=== PATIENT | male | born 1980 | race Two or more races ===

== ENCOUNTER → 2016-07-21 | Outpatient (CLI) | payer OTHER ==
[2016-07-21 13:41] LABS: BASO # 0.1 K/mm3 (0.0-0.2); EOS # 0.2 K/mm3 (0.0-0.50); EOS % 2.3 % (0.0-3.0); LYMPH # 2.4 K/mm3 (1.5-4.5); MEAN CORPUSCULAR HEMOGLOBIN 25.2 pg (27.0-33.0); MEAN CORPUSCULAR HGB CONC 33.1 g/dl (32.0-36.5); MEAN CORPUSCULAR VOLUME 76.3 fl (80.0-96.0); MONO # 0.3 K/mm3 (0.0-0.8); MONO % 4.2 % (0.0-5.0); NEUTROPHILS # 4.6 K/mm3 (1.8-7.7); NEUTROPHILS % 60.8 % (36.0-66.0); RED CELL DISTRIBUTION WIDTH 15.9 % (11.5-14.5); WHITE BLOOD COUNT 7.5 K/mm3 (4.0-10.0)
[2016-07-21 14:18] LABS: ALBUMIN 3.6 GM/DL (3.2-5.2); ALBUMIN/GLOBULIN RATIO 0.86 (1.00-1.93); ALKALINE PHOSPHATASE 109 U/L (45-117); ALT/SGPT 24 U/L (12-78); ANION GAP 10 MEQ/L (8-16); AST/SGOT 17 U/L (15-37); BILIRUBIN,TOTAL 0.4 MG/DL (0.2-1.0); BLOOD UREA NITROGEN 9 MG/DL (7-18); CALCIUM LEVEL 8.6 MG/DL (8.5-10.1); CARBON DIOXIDE LEVEL 29 MEQ/L (21-32); CHLORIDE LEVEL 103 MEQ/L (98-107); CHOLESTEROL LEVEL 188 MG/DL (<200); CREATININE FOR GFR 0.89 MG/DL (0.70-1.30); GLOMERULAR FILTRATION RATE > 60.0 (>60); GLUCOSE, FASTING 88 MG/DL (70-105); POTASSIUM SERUM 4.2 MEQ/L (3.5-5.1); SODIUM LEVEL 142 MEQ/L (136-145); TOTAL PROTEIN 7.8 GM/DL (6.4-8.2); TRIGLYCERIDES LEVEL 298 MG/DL (<150)
[2016-07-21 16:37] LABS: FERRITIN 73 NG/ML (26-388)
== END ==
LOC: M LAB 12:46
PROVIDERS: ATTEND Physician Assistant Medical
DX: I25.89 Other forms of chronic ischemic heart disease (principal); D64.9 Anemia, unspecified

== ENCOUNTER → 2016-08-14 | Outpatient (CLI) | payer OTHER ==
--- NOTE | 2016-08-17 11:13 | SLEEPHOME ---
DATE OF PROCEDURE: 08/13/2016 ORDERED BY: Katie Ngo NP Diagnostic home sleep testing was performed due to concern for the obstructive sleep apnea syndrome in this patient with a history of excessive somnolence and nonrestorative sleep. For testing, a NOX-T3 respiratory monitoring device was used. Continuous record was made of pulse, oxygen saturation, airflow, chest and abdominal strain, and body position. 9 hours and 59 minutes of data were reviewed. There were 7 hours and 28 minutes marked as time in bed. During the interval marked time in bed, there were 58 respiratory events identified of 10 seconds in duration or greater for a respiratory event index of 7.8. The events were primarily obstructive. 8 central apneas were seen. The patient's baseline pulse rate was 58 beats per minute. Pulse rate ranged 37-97 beats per minute. Oxygen saturation at baseline was 93%. Significant oxygen desaturations were seen surrounding respiratory events. The lowest oxygen saturation recorded was 67%. Testing was performed in the supine position. IMPRESSION: Abnormal home sleep testing with repetitive respiratory events and oxygen desaturations to 67% with a respiratory event index of 7.8 is consistent with the obstructive sleep apnea syndrome. RECOMMENDATION: The patient should be encouraged to return to the sleep disorder center for pressure therapy. In the interim, alcohol and sedative avoidance should be practiced and caution exercised during the operation of motor vehicles.
== END ==
LOC: M SLEEP 08-13 11:50 → M SLEEP HO 07:52
PROVIDERS: ATTEND Nurse Practitioner Adult Health
DX: G47.30 Sleep apnea, unspecified (principal)

== ENCOUNTER 2016-08-22 06:22 | Emergency (ER) | payer OTHER ==
[2016-08-22] MEDS ORDERED: ONDANSETRON 4 MG ORAL DISINTEGRATING TAB (S0181) As Ordered ONE (07:16)
--- NOTE | 2016-08-22 07:28 | EDDOCDS ---
Nurse's Notes [facility] Name: Bud Mcneal Age: 36 yrs Sex: Male : 1980 Arrival Date: 08/22/2016 Time: 06:22 Bed I5 / M5 Private MD: Diagnosis: Nausea and vomiting;Diarrhea, unspecified Presentation: 08/22 06:43 Presenting complaint: Patient states: started with vomiting and diarrhea this morning cz around 0100 last episode of vomiting and diarrhea around 0600. Adult Sepsis Screening: The patient does not have new or worsening altered mentation. Patient's respiratory rate is less than 22. Systolic blood pressure is greater than 100. Patient has a qSOFA score of 0- Negative Sepsis Screen. Suicide/Homicide risk assessment- the patient denies having any suicidal and/or homicidal ideations and does not present with any other emotional, behavioral or mental health complaints. 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 Transition of care: patient was not received from another setting of care. 06:43 Acuity: CHARO Level 3 cz 06:43 Method Of Arrival: Walkin/Carried/Asstd cz Triage Assessment: 06:49 General: Appears uncomfortable. Pain: Location: abdomen Pain currently is 10 out of 10 cz on a pain scale. HIV screening NA for this visit Offered previously. Historical: - Allergies: No known drug Allergies; - Home Meds: 1. ibuprofen 800 mg Oral tab prn - PMHx: [place] x2; - PSHx: hernia repair; Appendectomy; - Social history: Smoking status: Patient states was never smoker of tobacco. No barriers to communication noted, The patient speaks fluent Nicaraguan, Speaks appropriately for age. - Family history: Not pertinent. - : The pt / caregiver states he / she is not on anticoagulants. Home medication list is obtained from the patient. - Exposure Risk Screening:: None identified. Screenin:17 Screening information is obtained from the patient. Fall risk: No risks identified. jmk Assistance ADL's: requires no assistance with activities of daily living. Abuse/DV Screen: The patient / caregiver reports he/she is: not in a situation that causes fear, pain or injury. Nutritional screening: No deficits noted. Advance Directives: Currently, there is no health care proxy. There is no active DNR order. There is no living will. There is no Power of Paster Operator. Advance directive information has not previously been placed in an [facility] medical record. home support is adequate. Assessment: 07:17 General: Appears skin warm and dry color satisfactory. Moist pink oral mucosa. tolerant jmk of physical activity. Obese abdomen that is non distended. diffusely tender with palpation.. GI: Abdomen is non- distended obese, Bowel sounds present X 4 quads. Abd is soft X 4 quads Abd is tender to palpation X 4 quads. Vital Signs: 06:49 BP 123 / 63; Pulse 87; Resp 18; Temp 98.3(T); Pulse Ox 95% on R/A; Weight 158.76 kg; cz Height 5 ft. 5 in. (165.10 cm); 06:49 Body Mass Index 58.24 (158.76 kg, 165.10 cm) Vitals: 06:49 Log In Time: August 22, 2016 at 06:22. ED Course: 06:24 Patient visited by Catracho Hair Reg. pm4 06:24 Patient moved to Waiting pm4 06:47 Triage Initiated cz 06:57 Patient moved to Pre RCE cz 07:07 Patient moved to I5 / M5 jrd 07:09 Alfa Iglesias [facility] is [facility]. btw 07:09 Babita Reyna MD is Attending Physician. btw 07:09 Patient visited by Alfa Iglesias PA. btw 07:17 The patient / caregiver is instructed regarding the plan of care and ED course. k 07:17 No IV's were initiated during this patient's visit. No procedures done that require k assistance. 07:23 [place] [place] Agreement was scanned into [employer] and attached to record. hs2 Administered Medications: 07:17 Drug: Ondansetron ODT 4 mg [ondansetron 4 mg disintegrating tablet (1 tabs)] Route: PO; jmk Order Results: There are currently no results for this order. Outcome: 07:15 Discharge ordered by Provider. btw 07:26 Discharge Assessment: Patient awake, alert and oriented x 3. No cognitive and/or jmk functional deficits noted. Patient verbalized understanding of disposition instructions. patient administered narcotics - no. The following High Risk Discharge criteria are identified: None. Discharged to home ambulatory. Condition: good. Discharge instructions given to patient, Instructed on discharge instructions, follow up and referral plans. medication usage, Demonstrated understanding of instructions, medications, Pt was receptive of discharge instructions/ teaching. Prescriptions given X 1. No special radiology studies were completed. Property removed. 07:27 Patient left the ED. jaquelin Signatures: Edwin Fajardo,RN Amos Aviles RN RN cz Wolfenden, Brandon, PA PA btw Javier Shepard, Mary Jo Schaeffer, Reg Reg hs2 Catracho Hair, Reg Reg pm4 MTDD
--- NOTE | 2016-08-22 07:29 | EDDOCDS ---
Physician Documentation [facility] Name: Bud Mcneal Age: 36 yrs Sex: Male : 1980 Arrival Date: 08/22/2016 Time: 06:22 Bed I5 / M5 Private MD: Disposition: 08/22/16 07:15 Discharged to Home/Self Care. Impression: Nausea and vomiting, Diarrhea, unspecified. - Condition is Stable. - Discharge Instructions: Viral Gastroenteritis, [id number]. - Prescriptions for ZOFRAN ODT 4 mg Oral - dissolve 1 tablet by ORAL route 4 times per day As needed do not chew, do not swallow whole; 8 tablet. - Medication Reconciliation, Local Pharmacy Hours form. - Follow up: Private Physician; When: Call to arrange an appointment; Reason: Further diagnostic work-up, Recheck today's complaints, Continuance of care. - Problem is new. - Symptoms are unchanged. Historical: - Allergies: No known drug Allergies; - Home Meds: 1. ibuprofen 800 mg Oral tab prn - PMHx: [place] x2; - PSHx: hernia repair; Appendectomy; - Social history: Smoking status: Patient states was never smoker of tobacco. No barriers to communication noted, The patient speaks fluent Slovak, Speaks appropriately for age. - Family history: Not pertinent. - : The pt / caregiver states he / she is not on anticoagulants. Home medication list is obtained from the patient. - Exposure Risk Screening:: None identified. Vital Signs: 08/22 06:49 BP 123 / 63; Pulse 87; Resp 18; Temp 98.3(T); Pulse Ox 95% on R/A; Weight 158.76 kg / cz 350.01 lbs; Height 5 ft. 5 in. (165.10 cm); 06:49 Body Mass Index 58.24 (158.76 kg, 165.10 cm) cz MDM: 07:11 Ondansetron ODT Oral Disintegrating Tablet 4 mg PO once ordered. btw 07:18 Financial registration complete. hs2 07:23 [facility] Payment Agreement was scanned into [employer] and attached to record. hs2 Administered Medications: 07:17 Drug: Ondansetron ODT 4 mg [ondansetron 4 mg disintegrating tablet (1 tabs)] Route: PO; jaquelin Signatures: Edwin Fajardo,RN RN Amos Pickard, JADA RN Alfa Ward PA PA btw Mary Jo Marks, Reg Reg hs2 The chart was reviewed and I authenticate all verbal orders and agree with the evaluation and treatment provided.Attachments: : [facility] Payment Agreement hs2 MTDD
--- NOTE | 2016-08-24 08:28 | EDDOCDS ---
Physician Documentation [facility] Name: Bud Mcneal Age: 36 yrs Sex: Male : 1980 Arrival Date: 08/22/2016 Time: 06:22 Bed I5 / M5 Private MD: Disposition: 08/22/16 07:15 Discharged to Home/Self Care. Impression: Nausea and vomiting, Diarrhea, unspecified. - Condition is Stable. - Discharge Instructions: Viral Gastroenteritis, [id number]. - Prescriptions for ZOFRAN ODT 4 mg Oral - dissolve 1 tablet by ORAL route 4 times per day As needed do not chew, do not swallow whole; 8 tablet. - Medication Reconciliation, Local Pharmacy Hours form. - Follow up: Private Physician; When: Call to arrange an appointment; Reason: Further diagnostic work-up, Recheck today's complaints, Continuance of care. - Problem is new. - Symptoms are unchanged. Historical: - Allergies: No known drug Allergies; - Home Meds: 1. ibuprofen 800 mg Oral tab prn - PMHx: [place] x2; - PSHx: hernia repair; Appendectomy; - Social history: Smoking status: Patient states was never smoker of tobacco. No barriers to communication noted, The patient speaks fluent Slovenian, Speaks appropriately for age. - Family history: Not pertinent. - : The pt / caregiver states he / she is not on anticoagulants. Home medication list is obtained from the patient. - Exposure Risk Screening:: None identified. Vital Signs: 08/22 06:49 BP 123 / 63; Pulse 87; Resp 18; Temp 98.3(T); Pulse Ox 95% on R/A; Weight 158.76 kg / cz 350.01 lbs; Height 5 ft. 5 in. (165.10 cm); 06:49 Body Mass Index 58.24 (158.76 kg, 165.10 cm) cz MDM: 07:11 Ondansetron ODT Oral Disintegrating Tablet 4 mg PO once ordered. btw 07:18 Financial registration complete. hs2 07:23 [facility] Payment Agreement was scanned into [employer] and attached to record. hs2 13:57 T-Sheet-- Draft Copy was scanned into [employer] and attached to record. gb Administered Medications: 07:17 Drug: Ondansetron ODT 4 mg [ondansetron 4 mg disintegrating tablet (1 tabs)] Route: PO; jaquelin Signatures: Edwin Fajardo RN RN jmk Zecher, Calvin, RN RN Mikala Ferrer, Reg Reg gb Alfa Iglesias PA PA btw Mary Jo Marks, Reg Reg hs2 The chart was reviewed and I authenticate all verbal orders and agree with the evaluation and treatment provided.Attachments: 07:23 [facility] [place] Agreement hs2 13:57 T-Sheet-- Draft Copy gb Chart Complete MTDD
--- NOTE | 2016-08-24 08:28 | EDDOCDS ---
Nurse's Notes [facility] Name: Bud Mcneal Age: 36 yrs Sex: Male : 1980 Arrival Date: 08/22/2016 Time: 06:22 Bed I5 / M5 Private MD: Diagnosis: Nausea and vomiting;Diarrhea, unspecified Presentation: 08/22 06:43 Presenting complaint: Patient states: started with vomiting and diarrhea this morning cz around 0100 last episode of vomiting and diarrhea around 0600. Adult Sepsis Screening: The patient does not have new or worsening altered mentation. Patient's respiratory rate is less than 22. Systolic blood pressure is greater than 100. Patient has a qSOFA score of 0- Negative Sepsis Screen. Suicide/Homicide risk assessment- the patient denies having any suicidal and/or homicidal ideations and does not present with any other emotional, behavioral or mental health complaints. Status: Patient is not a room service associate or dependent. Transition of care: patient was not received from another setting of care. 06:43 Acuity: CHARO Level 3 cz 06:43 Method Of Arrival: Walkin/Carried/Asstd cz Triage Assessment: 06:49 General: Appears uncomfortable. Pain: Location: abdomen Pain currently is 10 out of 10 cz on a pain scale. HIV screening NA for this visit Offered previously. Historical: - Allergies: No known drug Allergies; - Home Meds: 1. ibuprofen 800 mg Oral tab prn - PMHx: [place] x2; - PSHx: hernia repair; Appendectomy; - Social history: Smoking status: Patient states was never smoker of tobacco. No barriers to communication noted, The patient speaks fluent Malian, Speaks appropriately for age. - Family history: Not pertinent. - : The pt / caregiver states he / she is not on anticoagulants. Home medication list is obtained from the patient. - Exposure Risk Screening:: None identified. Screenin:17 Screening information is obtained from the patient. Fall risk: No risks identified. jmk Assistance ADL's: requires no assistance with activities of daily living. Abuse/DV Screen: The patient / caregiver reports he/she is: not in a situation that causes fear, pain or injury. Nutritional screening: No deficits noted. Advance Directives: Currently, there is no health care proxy. There is no active DNR order. There is no living will. There is no Power of Assistant Research Scientist. Advance directive information has not previously been placed in an [facility] medical record. home support is adequate. Assessment: 07:17 General: Appears skin warm and dry color satisfactory. Moist pink oral mucosa. tolerant jmk of physical activity. Obese abdomen that is non distended. diffusely tender with palpation.. GI: Abdomen is non- distended obese, Bowel sounds present X 4 quads. Abd is soft X 4 quads Abd is tender to palpation X 4 quads. Vital Signs: 06:49 BP 123 / 63; Pulse 87; Resp 18; Temp 98.3(T); Pulse Ox 95% on R/A; Weight 158.76 kg; cz Height 5 ft. 5 in. (165.10 cm); 06:49 Body Mass Index 58.24 (158.76 kg, 165.10 cm) Vitals: 06:49 Log In Time: August 22, 2016 at 06:22. ED Course: 06:24 Patient visited by Catracho Hair Reg. pm4 06:24 Patient moved to Waiting pm4 06:47 Triage Initiated cz 06:57 Patient moved to Pre RCE cz 07:07 Patient moved to I5 / M5 jrd 07:09 [facility]. btw 07:09 Babita Reyna MD is Attending Physician. btw 07:09 Patient visited by Alfa Iglesias PA. btw 07:17 The patient / caregiver is instructed regarding the plan of care and ED course. jmk 07:17 No IV's were initiated during this patient's visit. No procedures done that require k assistance. 07:23 [place] [place] Payment Agreement was scanned into [employer] and attached to record. hs2 13:57 T-Sheet-- Draft Copy was scanned into [employer] and attached to record. gb Administered Medications: 07:17 Drug: Ondansetron ODT 4 mg [ondansetron 4 mg disintegrating tablet (1 tabs)] Route: PO; jmk Order Results: There are currently no results for this order. Outcome: 07:15 Discharge ordered by Provider. btw 07:26 Discharge Assessment: Patient awake, alert and oriented x 3. No cognitive and/or jmk functional deficits noted. Patient verbalized understanding of disposition instructions. patient administered narcotics - no. The following High Risk Discharge criteria are identified: None. Discharged to home ambulatory. Condition: good. Discharge instructions given to patient, Instructed on discharge instructions, follow up and referral plans. medication usage, Demonstrated understanding of instructions, medications, Pt was receptive of discharge instructions/ teaching. Prescriptions given X 1. No special radiology studies were completed. Property removed. 07:27 Patient left the ED. jaquelin Signatures: Edwin Fajardo RN RN jmk Zecher, Calvin, RN RN cz Barnhardt, Gloria, Reg Reg gb Alfa Iglesias PA PA btw Javier Shepard, CARLITO CUSTOMER SUCCESS INTERN jrd Mary Jo Marks, Reg Reg hs2 Catracho Hair, Reg Reg pm4 Chart Complete MTDD
--- NOTE | 2016-08-24 08:28 | EDDOCDS ---
Physician Documentation [facility] Name: Bud Mcneal Age: 36 yrs Sex: Male : 1980 Arrival Date: 08/22/2016 Time: 06:22 Bed I5 / M5 Private MD: Disposition: 08/22/16 07:15 Discharged to Home/Self Care. Impression: Nausea and vomiting, Diarrhea, unspecified. - Condition is Stable. - Discharge Instructions: Viral Gastroenteritis, [id number]. - Prescriptions for ZOFRAN ODT 4 mg Oral - dissolve 1 tablet by ORAL route 4 times per day As needed do not chew, do not swallow whole; 8 tablet. - Medication Reconciliation, Local Pharmacy Hours form. - Follow up: Private Physician; When: Call to arrange an appointment; Reason: Further diagnostic work-up, Recheck today's complaints, Continuance of care. - Problem is new. - Symptoms are unchanged. Historical: - Allergies: No known drug Allergies; - Home Meds: 1. ibuprofen 800 mg Oral tab prn - PMHx: [place] x2; - PSHx: hernia repair; Appendectomy; - Social history: Smoking status: Patient states was never smoker of tobacco. No barriers to communication noted, The patient speaks fluent Malay, Speaks appropriately for age. - Family history: Not pertinent. - : The pt / caregiver states he / she is not on anticoagulants. Home medication list is obtained from the patient. - Exposure Risk Screening:: None identified. Vital Signs: 08/22 06:49 BP 123 / 63; Pulse 87; Resp 18; Temp 98.3(T); Pulse Ox 95% on R/A; Weight 158.76 kg / cz 350.01 lbs; Height 5 ft. 5 in. (165.10 cm); 06:49 Body Mass Index 58.24 (158.76 kg, 165.10 cm) cz MDM: 07:11 Ondansetron ODT Oral Disintegrating Tablet 4 mg PO once ordered. btw 07:18 Financial registration complete. hs2 07:23 [facility] Payment Agreement was scanned into [employer] and attached to record. hs2 13:57 T-Sheet-- Draft Copy was scanned into [employer] and attached to record. gb Administered Medications: 07:17 Drug: Ondansetron ODT 4 mg [ondansetron 4 mg disintegrating tablet (1 tabs)] Route: PO; jaquelin Signatures: Edwin Fajardo RN RN jmk Zecher, Calvin, RN RN Mikala Ferrer, Reg Reg gb Alfa Iglesias PA PA btw Mary Jo Marks, Reg Reg hs2 The chart was reviewed and I authenticate all verbal orders and agree with the evaluation and treatment provided.Attachments: 07:23 [place] [place] Payment Agreement hs2 13:57 T-Sheet-- Draft Copy gb Chart Complete MTDD
== END 2016-08-22 07:27 | disposition home or self-care (01) ==
LOC: M ED 06:22
DX: R11.2 Nausea with vomiting, unspecified (principal); R19.7 Diarrhea, unspecified; I25.2 Old myocardial infarction

== ENCOUNTER 2016-09-04 09:41 | Emergency (ER) | payer OTHER ==
--- NOTE | 2016-09-04 10:46 | REP ---
Clinical: Left-sided pain . Technique: Frontal view of the chest with multiple views of the left hemithorax. Findings: Frontal view of the chest demonstrates no acute cardiopulmonary process. Multiple views of the left hemithorax demonstrates no obvious acute rib fracture or pathology. Impression: Normal left rib series Signed by Valdemar Landry MD 09/04/2016 10:38 A
--- NOTE | 2016-09-04 11:24 | EDDOCDS ---
Nurse's Notes [facility] Name: Bud Mcneal Age: 36 yrs Sex: Male : 1980 Arrival Date: 09/04/2016 Time: 09:41 Bed TR7 Private MD: NO PRIMARY PHYSICIAN, . Diagnosis: Strain of muscle and tendon of back wall of thorax-OCER LEFT FLANK Presentation: 09/04 09:49 Presenting complaint: Patient states: this morning bent over to cough felt sharp pain [facility] left lower back dropped him to his knees. Acute neurological deficits are not present. Mechanism of Injury: Bending. Adult Sepsis Screening: The patient does not have new or worsening altered mentation. Patient's respiratory rate is less than 22. Systolic blood pressure is greater than 100. Patient has a qSOFA score of 0- Negative Sepsis Screen. Suicide/Homicide risk assessment- the patient denies having any suicidal and/or homicidal ideations and does not present with any other emotional, behavioral or mental health complaints. Status: Patient is not a community service worker or dependent. Transition of care: patient was not received from another setting of care. 09:49 Acuity: CHARO Level 4 [facility] 09:49 Method Of Arrival: Walkin/Carried/Asstd [facility] Triage Assessment: 09:52 General: Appears uncomfortable, Behavior is appropriate for age. Pain: Location: left j low back Pain currently is 10 out of 10 on a pain scale. Pain radiates to left leg. Pt Declines HIV testing. Neurological: Level of Consciousness is awake, alert, Oriented to person, place, time. Respiratory: Airway is patent Respiratory effort is even, unlabored. Derm: Skin is pink, warm & dry. Musculoskeletal: Reports pain in left low back radiation to left leg Pain is 10 out of 10 on a pain scale. Denies weakness, numbness. Historical: - Allergies: No known drug Allergies; - Home Meds: 1. omeprazole 20 mg Oral cpDR 1 cap once daily (Last dose: 09/03/2016) 2. aspirin 81 mg Oral tab 1 tab once daily (Last dose: 09/03/2016) 3. ibuprofen 800 mg Oral tab prn (Last dose: 09/03/2016) - PMHx: [place] x2; GERD; - PSHx: hernia repair; Appendectomy; Cholecystectomy; - Social history: Smoking status: Patient states was never smoker of tobacco. No barriers to communication noted, The patient speaks fluent Dutch. - Family history: Not pertinent. - : The pt / caregiver states he / she is not on anticoagulants. Home medication list is obtained from the patient. - Exposure Risk Screening:: None identified. Screenin:00 Screening information is obtained from the patient. Fall risk: No risks identified. [facility] Assistance ADL's: requires no assistance with activities of daily living. Abuse/DV Screen: The patient / caregiver reports he/she is: not in a situation that causes fear, pain or injury. Nutritional screening: No deficits noted. Advance Directives: Currently, there is no health care proxy. There is no active DNR order. There is no living will. There is no Power of Can Closing Machine Tender. Advance directive information has not previously been placed in an [facility] medical record. Further advance directive information is declined. home support is adequate. Assessment: 11:00 General: Appears in no apparent distress, Behavior is appropriate for age, pleasant. [facility] Pain: Location: left low back Pain currently is 6 out of 10 on a pain scale. Neurological: Level of Consciousness is awake, alert, Oriented to person, place, time. Respiratory: Airway is patent Respiratory effort is even, unlabored. Derm: Skin is pink, warm & dry. Musculoskeletal: Reports pain in left low back radiation to left leg Pain is 6 out of 10 on a pain scale. Vital Signs: 09:44 BP 146 / 74; Pulse 67; Resp 18; Temp 97.3(O); Pulse Ox 95% on R/A; Weight 158.76 kg [facility] (R); Height 5 ft. 6 in. (167.64 cm) (R); Pain 10/10; 10:58 BP 138 / 83 RA Sitting (auto/lg); Pulse 65; Resp 18; Temp 97.7(O); Pulse Ox 94% ; Pain rs6 10/10; 09:44 Body Mass Index 56.49 (158.76 kg, 167.64 cm) [facility] Vitals: 09:44 Log In Time: September 04, 2016 at 09:40. [facility] ED Course: 09:43 Patient visited by Kadi Graves. [facility] 09:43 NO PRIMARY PHYSICIAN, . is Private Physician. [facility] 09:43 Patient moved to Waiting [facility] 09:44 Patient visited by Kadi Graves. dem1 09:51 Triage Initiated kpj 09:54 Patient moved to Triage 2 kpj 09:55 [facility] dt4 09:55 Douglas Krishnamurthy MD is Attending Physician. dt4 09:56 Patient visited by Mariely Tom PA-C. dt4 10:07 Patient moved to TR1 srm 10:46 [facility] is Referral Physician. dt4 10:50 Rib Unilat W/PA Chest Only Returned. EDMS 10:53 Patient moved to PR1 / 25 rs6 10:53 [facility] Payment Agreement was scanned into [employer] and attached to record. lg 10:58 Patient visited by Leah Lay PCA. rs6 11:00 No apparent distress. kpj 11:00 The patient / caregiver is instructed regarding the plan of care and ED course. Patient [facility] has correct armband on for positive identification. 11:00 No IV's were initiated during this patient's visit. No procedures done that require kpj assistance. 11:05 Patient moved to TR1 rs6 11:06 Patient moved to TR7 rs6 Order Results: Radiology Order: Rib Unilat W/PA Chest Only Test: Rib Unilat W/PA Chest Only REASON FOR EXAMINATION: LEFT POST RIB PAIN AFTER COUGHING; Clinical: Left-sided pain .; ; Technique: Frontal view of the chest with multiple views of the left; hemithorax.; ; Findings:; Frontal view of the chest demonstrates no acute cardiopulmonary process.; Multiple views of the left hemithorax demonstrates no obvious acute rib fracture; or pathology.; ; Impression:; Normal left rib series; ; ; Signed by; Valdemar Landry MD 09/04/2016 10:38 A; Outcome: 10:46 Discharge ordered by Provider. dt4 11:00 Discharge Assessment: Patient awake, alert and oriented x 3. No cognitive and/or kpj functional deficits noted. Patient verbalized understanding of disposition instructions. patient administered narcotics - no. The following High Risk Discharge criteria are identified: None. Discharged to home ambulatory. Condition: stable. Discharge instructions given to patient, Instructed on discharge instructions, follow up and referral plans. medication usage, no driving heavy equipment, Use of warm compresses to the affected area, no drinking with medication, Demonstrated understanding of instructions, medications, Pt was receptive of discharge instructions/ teaching. Prescriptions given X 2. No special radiology studies were completed. Property sent home with patient. 11:23 Patient left the ED. [facility] Signatures: Dispatcher [employer] EDCecilia Angulo, Leigh Raza RN, RN RN Flores Rebolledo, Reg Reg lg Star, Kadi dem1 Mariely Tom PA-C PA-C dt4 Leah Lay PCA [place] [employer] rs6 MTDD
--- NOTE | 2016-09-04 11:24 | EDDOCDS ---
Physician Documentation [facility] Name: Bud Mcneal Age: 36 yrs Sex: Male : 1980 Arrival Date: 09/04/2016 Time: 09:41 Bed TR7 Private MD: NO PRIMARY PHYSICIAN, . Disposition: 09/04/16 10:46 Discharged to Home/Self Care. Impression: Strain of muscle and tendon of back wall of thorax - OCER LEFT FLANK. - Condition is Stable. - Discharge Instructions: Muscle Strain. - Prescriptions for Naprosyn 500 mg Oral Tablet - take 1 tablet by ORAL route every 12 hours As needed take with food; 30 tablet. Cyclobenzaprine 10 mg Oral Tablet - take 1 tablet by ORAL route at bedtime As needed; 15 tablet. - Medication Reconciliation, Local Pharmacy Hours form. - Follow up: Emergency Department; When: As needed; Reason: Worsening of conditions. Follow up: [facility]; When: Call to arrange an appointment; Reason: Recheck today's complaints, Continuance of care, To establish care. - Problem is new. - Symptoms are unchanged. Historical: - Allergies: No known drug Allergies; - Home Meds: 1. omeprazole 20 mg Oral cpDR 1 cap once daily (Last dose: 09/03/2016) 2. aspirin 81 mg Oral tab 1 tab once daily (Last dose: 09/03/2016) 3. ibuprofen 800 mg Oral tab prn (Last dose: 09/03/2016) - PMHx: [place] x2; GERD; - PSHx: hernia repair; Appendectomy; Cholecystectomy; - Social history: Smoking status: Patient states was never smoker of tobacco. No barriers to communication noted, The patient speaks fluent American. - Family history: Not pertinent. - : The pt / caregiver states he / she is not on anticoagulants. Home medication list is obtained from the patient. - Exposure Risk Screening:: None identified. Vital Signs: 09/04 09:44 BP 146 / 74; Pulse 67; Resp 18; Temp 97.3(O); Pulse Ox 95% on R/A; Weight 158.76 kg / dem1 350.01 lbs (R); Height 5 ft. 6 in. (167.64 cm) (R); Pain 10/10; 10:58 BP 138 / 83 RA Sitting (auto/lg); Pulse 65; Resp 18; Temp 97.7(O); Pulse Ox 94% ; Pain rs6 04/21; 09:44 Body Mass Index 56.49 (158.76 kg, 167.64 cm) dem1 MDM: 10:01 Financial registration complete. lg 10:03 Rib Unilat W/PA Chest Only Ordered. EDMS 10:53 [facility] Payment Agreement was scanned into [employer] and attached to record. lg Signatures: Dispatcher [employer] EDSD Cecilia Jones RN RN Flores Russell, Reg Reg Mariely Tom, GONZÁLEZC PARomie dt4 The chart was reviewed and I authenticate all verbal orders and agree with the evaluation and treatment provided.Attachments: 10:53 [facility] Payment Agreement lg MTDD
--- NOTE | 2016-09-06 12:25 | EDDOCDS ---
Nurse's Notes [facility] Name: Bud Mcneal Age: 36 yrs Sex: Male : 1980 Arrival Date: 09/04/2016 Time: 09:41 Bed TR7 Private MD: NO PRIMARY PHYSICIAN, . Diagnosis: Strain of muscle and tendon of back wall of thorax-OCER LEFT FLANK Presentation: 09/04 09:49 Presenting complaint: Patient states: this morning bent over to cough felt sharp pain [facility] left lower back dropped him to his knees. Acute neurological deficits are not present. Mechanism of Injury: Bending. Adult Sepsis Screening: The patient does not have new or worsening altered mentation. Patient's respiratory rate is less than 22. Systolic blood pressure is greater than 100. Patient has a qSOFA score of 0- Negative Sepsis Screen. Suicide/Homicide risk assessment- the patient denies having any suicidal and/or homicidal ideations and does not present with any other emotional, behavioral or mental health complaints. Status: Patient is not a retail service specialist or dependent. Transition of care: patient was not received from another setting of care. 09:49 Acuity: CHARO Level 4 [facility] 09:49 Method Of Arrival: Walkin/Carried/Asstd [facility] Triage Assessment: 09:52 General: Appears uncomfortable, Behavior is appropriate for age. Pain: Location: left j low back Pain currently is 10 out of 10 on a pain scale. Pain radiates to left leg. Pt Declines HIV testing. Neurological: Level of Consciousness is awake, alert, Oriented to person, place, time. Respiratory: Airway is patent Respiratory effort is even, unlabored. Derm: Skin is pink, warm & dry. Musculoskeletal: Reports pain in left low back radiation to left leg Pain is 10 out of 10 on a pain scale. Denies weakness, numbness. Historical: - Allergies: No known drug Allergies; - Home Meds: 1. omeprazole 20 mg Oral cpDR 1 cap once daily (Last dose: 09/03/2016) 2. aspirin 81 mg Oral tab 1 tab once daily (Last dose: 09/03/2016) 3. ibuprofen 800 mg Oral tab prn (Last dose: 09/03/2016) - PMHx: [place] x2; GERD; - PSHx: hernia repair; Appendectomy; Cholecystectomy; - Social history: Smoking status: Patient states was never smoker of tobacco. No barriers to communication noted, The patient speaks fluent Yemeni. - Family history: Not pertinent. - : The pt / caregiver states he / she is not on anticoagulants. Home medication list is obtained from the patient. - Exposure Risk Screening:: None identified. Screenin:00 Screening information is obtained from the patient. Fall risk: No risks identified. [facility] Assistance ADL's: requires no assistance with activities of daily living. Abuse/DV Screen: The patient / caregiver reports he/she is: not in a situation that causes fear, pain or injury. Nutritional screening: No deficits noted. Advance Directives: Currently, there is no health care proxy. There is no active DNR order. There is no living will. There is no Power of Rail Bender. Advance directive information has not previously been placed in an [facility] medical record. Further advance directive information is declined. home support is adequate. Assessment: 11:00 General: Appears in no apparent distress, Behavior is appropriate for age, pleasant. [facility] Pain: Location: left low back Pain currently is 6 out of 10 on a pain scale. Neurological: Level of Consciousness is awake, alert, Oriented to person, place, time. Respiratory: Airway is patent Respiratory effort is even, unlabored. Derm: Skin is pink, warm & dry. Musculoskeletal: Reports pain in left low back radiation to left leg Pain is 6 out of 10 on a pain scale. Vital Signs: 09:44 BP 146 / 74; Pulse 67; Resp 18; Temp 97.3(O); Pulse Ox 95% on R/A; Weight 158.76 kg [facility] (R); Height 5 ft. 6 in. (167.64 cm) (R); Pain 10/10; 10:58 BP 138 / 83 RA Sitting (auto/lg); Pulse 65; Resp 18; Temp 97.7(O); Pulse Ox 94% ; Pain rs6 10/10; 09:44 Body Mass Index 56.49 (158.76 kg, 167.64 cm) [facility] Vitals: 09:44 Log In Time: September 04, 2016 at 09:40. [facility] ED Course: 09:43 Patient visited by Kadi Graves. [facility] 09:43 NO PRIMARY PHYSICIAN, . is Private Physician. [facility] 09:43 Patient moved to Waiting [facility] 09:44 Patient visited by Kadi Graves. dem1 09:51 Triage Initiated kpj 09:54 Patient moved to Triage 2 kpj 09:55 Mariely Tom [facility]C [facility]. dt4 09:55 Douglas Krishnamurthy MD is Attending Physician. dt4 09:56 Patient visited by Mariely Tom PA-C. dt4 10:07 Patient moved to TR1 srm 10:46 [facility] is Referral Physician. dt4 10:50 Rib Unilat W/PA Chest Only Returned. EDMS 10:53 Patient moved to PR1 / 25 rs6 10:53 [facility] Payment Agreement was scanned into [employer] and attached to record. lg 10:58 Patient visited by Leah Lay PCA. rs6 11:00 No apparent distress. kpj 11:00 The patient / caregiver is instructed regarding the plan of care and ED course. Patient [facility] has correct armband on for positive identification. 11:00 No IV's were initiated during this patient's visit. No procedures done that require kpj assistance. 11:05 Patient moved to TR1 rs6 11:06 Patient moved to TR7 rs6 21:49 T-Sheet-- Draft Copy was scanned into [employer] and attached to record. klr Order Results: Radiology Order: Rib Unilat W/PA Chest Only Test: Rib Unilat W/PA Chest Only REASON FOR EXAMINATION: LEFT POST RIB PAIN AFTER COUGHING; Clinical: Left-sided pain .; ; Technique: Frontal view of the chest with multiple views of the left; hemithorax.; ; Findings:; Frontal view of the chest demonstrates no acute cardiopulmonary process.; Multiple views of the left hemithorax demonstrates no obvious acute rib fracture; or pathology.; ; Impression:; Normal left rib series; ; ; Signed by; Valdemar Landry MD 09/04/2016 10:38 A; Outcome: 10:46 Discharge ordered by Provider. dt4 11:00 Discharge Assessment: Patient awake, alert and oriented x 3. No cognitive and/or kpj functional deficits noted. Patient verbalized understanding of disposition instructions. patient administered narcotics - no. The following High Risk Discharge criteria are identified: None. Discharged to home ambulatory. Condition: stable. Discharge instructions given to patient, Instructed on discharge instructions, follow up and referral plans. medication usage, no driving heavy equipment, Use of warm compresses to the affected area, no drinking with medication, Demonstrated understanding of instructions, medications, Pt was receptive of discharge instructions/ teaching. Prescriptions given X 2. No special radiology studies were completed. Property sent home with patient. 11:23 Patient left the ED. [facility] Signatures: Dispatcher [employer]Host EDTX Cecilia Jones RN RN kpj Michelson, Staci, RN RN srm Flores Caruso, Reg Reg lg Kadi Graves dem1 Mariely Tom PA-C PA-C dt4 Leah Lay PCA MEDICAL RESEARCHER rs6 Nasreen Davis Chart Complete MTDD
--- NOTE | 2016-09-06 12:25 | EDDOCDS ---
Physician Documentation [facility] Name: Bud Mcneal Age: 36 yrs Sex: Male : 1980 Arrival Date: 09/04/2016 Time: 09:41 Bed TR7 Private MD: NO PRIMARY PHYSICIAN, . Disposition: 09/04/16 10:46 Discharged to Home/Self Care. Impression: Strain of muscle and tendon of back wall of thorax - OCER LEFT FLANK. - Condition is Stable. - Discharge Instructions: Muscle Strain. - Prescriptions for Naprosyn 500 mg Oral Tablet - take 1 tablet by ORAL route every 12 hours As needed take with food; 30 tablet. Cyclobenzaprine 10 mg Oral Tablet - take 1 tablet by ORAL route at bedtime As needed; 15 tablet. - Medication Reconciliation, Local Pharmacy Hours form. - Follow up: Emergency Department; When: As needed; Reason: Worsening of conditions. Follow up: [facility]; When: Call to arrange an appointment; Reason: Recheck today's complaints, Continuance of care, To establish care. - Problem is new. - Symptoms are unchanged. Historical: - Allergies: No known drug Allergies; - Home Meds: 1. omeprazole 20 mg Oral cpDR 1 cap once daily (Last dose: 09/03/2016) 2. aspirin 81 mg Oral tab 1 tab once daily (Last dose: 09/03/2016) 3. ibuprofen 800 mg Oral tab prn (Last dose: 09/03/2016) - PMHx: [place] x2; GERD; - PSHx: hernia repair; Appendectomy; Cholecystectomy; - Social history: Smoking status: Patient states was never smoker of tobacco. No barriers to communication noted, The patient speaks fluent Cameroonian. - Family history: Not pertinent. - : The pt / caregiver states he / she is not on anticoagulants. Home medication list is obtained from the patient. - Exposure Risk Screening:: None identified. Vital Signs: 09/04 09:44 BP 146 / 74; Pulse 67; Resp 18; Temp 97.3(O); Pulse Ox 95% on R/A; Weight 158.76 kg / dem1 350.01 lbs (R); Height 5 ft. 6 in. (167.64 cm) (R); Pain 10/10; 10:58 BP 138 / 83 RA Sitting (auto/lg); Pulse 65; Resp 18; Temp 97.7(O); Pulse Ox 94% ; Pain rs6 04/21; 09:44 Body Mass Index 56.49 (158.76 kg, 167.64 cm) dem1 MDM: 10:01 Financial registration complete. lg 10:03 Rib Unilat W/PA Chest Only Ordered. EDMS 10:53 [facility] Payment Agreement was scanned into [employer] and attached to record. lg 21:49 T-Sheet-- Draft Copy was scanned into [employer] and attached to record. klr Signatures: Dispatcher [employer] EDMA Cecilia Jones RN RN kpFlores Morin, Reg Reg Mariely Tom PA-C PA-C dt4 Redder, Kathie klr The chart was reviewed and I authenticate all verbal orders and agree with the evaluation and treatment provided.Attachments: 10:53 [facility] Payment Agreement lg 21:49 T-Sheet-- Draft Copy klr Chart Complete MTDD
--- NOTE | 2016-09-06 12:25 | EDDOCDS ---
Physician Documentation [facility] Name: Bud Mcneal Age: 36 yrs Sex: Male : 1980 Arrival Date: 09/04/2016 Time: 09:41 Bed TR7 Private MD: NO PRIMARY PHYSICIAN, . Disposition: 09/04/16 10:46 Discharged to Home/Self Care. Impression: Strain of muscle and tendon of back wall of thorax - OCER LEFT FLANK. - Condition is Stable. - Discharge Instructions: Muscle Strain. - Prescriptions for Naprosyn 500 mg Oral Tablet - take 1 tablet by ORAL route every 12 hours As needed take with food; 30 tablet. Cyclobenzaprine 10 mg Oral Tablet - take 1 tablet by ORAL route at bedtime As needed; 15 tablet. - Medication Reconciliation, Local Pharmacy Hours form. - Follow up: Emergency Department; When: As needed; Reason: Worsening of conditions. Follow up: [facility]; When: Call to arrange an appointment; Reason: Recheck today's complaints, Continuance of care, To establish care. - Problem is new. - Symptoms are unchanged. Historical: - Allergies: No known drug Allergies; - Home Meds: 1. omeprazole 20 mg Oral cpDR 1 cap once daily (Last dose: 09/03/2016) 2. aspirin 81 mg Oral tab 1 tab once daily (Last dose: 09/03/2016) 3. ibuprofen 800 mg Oral tab prn (Last dose: 09/03/2016) - PMHx: [place] x2; GERD; - PSHx: hernia repair; Appendectomy; Cholecystectomy; - Social history: Smoking status: Patient states was never smoker of tobacco. No barriers to communication noted, The patient speaks fluent Moroccan. - Family history: Not pertinent. - : The pt / caregiver states he / she is not on anticoagulants. Home medication list is obtained from the patient. - Exposure Risk Screening:: None identified. Vital Signs: 09/04 09:44 BP 146 / 74; Pulse 67; Resp 18; Temp 97.3(O); Pulse Ox 95% on R/A; Weight 158.76 kg / dem1 350.01 lbs (R); Height 5 ft. 6 in. (167.64 cm) (R); Pain 10/10; 10:58 BP 138 / 83 RA Sitting (auto/lg); Pulse 65; Resp 18; Temp 97.7(O); Pulse Ox 94% ; Pain rs6 04/21; 09:44 Body Mass Index 56.49 (158.76 kg, 167.64 cm) dem1 MDM: 10:01 Financial registration complete. lg 10:03 Rib Unilat W/PA Chest Only Ordered. EDMS 10:53 [facility] Payment Agreement was scanned into [employer] and attached to record. lg 21:49 T-Sheet-- Draft Copy was scanned into [employer] and attached to record. klr Signatures: Dispatcher [employer] EDWA Cecilia Jones RN RN kpFlores Morin, Reg Reg Mariely Tom PA-C PA-C dt4 Redder, Kathie klr The chart was reviewed and I authenticate all verbal orders and agree with the evaluation and treatment provided.Attachments: 10:53 [facility] Payment Agreement lg 21:49 T-Sheet-- Draft Copy klr Chart Complete MTDD
== END 2016-09-04 11:23 | disposition home or self-care (01) ==
LOC: M ED 09:41
DX: S29.011A Strain of muscle and tendon of front wall of thorax, initial encounter (principal); X58.XXXA Exposure to other specified factors, initial encounter; Y92.89 Other specified places as the place of occurrence of the external cause; Y93.89 Activity, other specified; Y99.8 Other external cause status; K21.9 Gastro-esophageal reflux disease without esophagitis; I25.2 Old myocardial infarction; Z90.49 Acquired absence of other specified parts of digestive tract; Z90.89 Acquired absence of other organs; Z79.82 Long term (current) use of aspirin; Z79.899 Other long term (current) drug therapy

== ENCOUNTER 2016-09-13 17:38 | Emergency (ER) | payer OTHER ==
[~2016-09-13] VITALS: Ht 167.6 cm; Wt 158.8 kg
[2016-09-13 17:58] VITALS: BP 156/78
[2016-09-13] MEDS ORDERED: ASPI325T28 PO (18:04)
[2016-09-13] MEDS ORDERED: PRED20TA PO (19:54)
[2016-09-13] MEDS ORDERED: CYCL10TA PO (19:56)
== END 2016-09-13 20:17 | disposition home or self-care (01) ==
LOC: M ED 19:28
DX: S33.9XXA Sprain of unspecified parts of lumbar spine and pelvis, initial encounter (principal); X50.9XXA Other and unspecified overexertion or strenuous movements or postures, initial encounter; Y92.89 Other specified places as the place of occurrence of the external cause; Y93.89 Activity, other specified; Y99.0 Civilian activity done for income or pay; Z79.82 Long term (current) use of aspirin; I25.2 Old myocardial infarction

== ENCOUNTER → 2016-10-02 | Outpatient (CLI) | payer OTHER ==
[~2016-10-02] MED LIST: ASPI325T28 PO; CYCL10TA PO; PRED20TA PO
[2016-10-02 12:45] LABS: BASO % 0.4 % (0.0-1.0); EOS # 0.2 K/mm3 (0.0-0.50); EOS % 2.2 % (0.0-3.0); LYMPH # 1.8 K/mm3 (1.5-4.5); LYMPH % 27.4 % (24.0-44.0); MEAN CORPUSCULAR HEMOGLOBIN 25.2 pg (27.0-33.0); MEAN CORPUSCULAR HGB CONC 32.3 g/dl (32.0-36.5); MONO # 0.3 K/mm3 (0.0-0.8); MONO % 4.4 % (0.0-5.0); NEUTROPHILS # 4.3 K/mm3 (1.8-7.7); NEUTROPHILS % 64.1 % (36.0-66.0); RED CELL DISTRIBUTION WIDTH 14.9 % (11.5-14.5); WHITE BLOOD COUNT 6.7 K/mm3 (4.0-10.0)
[2016-10-02 13:13] LABS: ALBUMIN 3.7 GM/DL (3.2-5.2); ALBUMIN/GLOBULIN RATIO 0.84 (1.00-1.93); ALKALINE PHOSPHATASE 105 U/L (45-117); ALT/SGPT 29 U/L (12-78); ANION GAP 7 MEQ/L (8-16); AST/SGOT 19 U/L (15-37); BILIRUBIN,TOTAL 0.6 MG/DL (0.2-1.0); BLOOD UREA NITROGEN 12 MG/DL (7-18); CALCIUM LEVEL 8.9 MG/DL (8.5-10.1); CARBON DIOXIDE LEVEL 30 MEQ/L (21-32); CHLORIDE LEVEL 103 MEQ/L (98-107); CHOLESTEROL LEVEL 173 MG/DL (<200); CREATININE FOR GFR 0.91 MG/DL (0.70-1.30); FERRITIN 75 NG/ML (26-388); GLOMERULAR FILTRATION RATE > 60.0 (>60); GLUCOSE, FASTING 100 MG/DL (70-105); POTASSIUM SERUM 4.7 MEQ/L (3.5-5.1); SODIUM LEVEL 140 MEQ/L (136-145); TOTAL PROTEIN 8.1 GM/DL (6.4-8.2); TRIGLYCERIDES LEVEL 248 MG/DL (<150)
== END ==
LOC: M LAB 11:54
PROVIDERS: ATTEND Physician Assistant Medical
DX: D64.9 Anemia, unspecified (principal); E78.2 Mixed hyperlipidemia

== ENCOUNTER → 2016-11-25 | Outpatient (CLI) | payer OTHER ==
[2016-11-25 12:17] LABS: BASO % 0.4 % (0.0-1.0); EOS # 0.1 K/mm3 (0.0-0.50); EOS % 1.7 % (0.0-3.0); LYMPH # 1.9 K/mm3 (1.5-4.5); LYMPH % 28.9 % (24.0-44.0); MEAN CORPUSCULAR HEMOGLOBIN 25.7 pg (27.0-33.0); MONO # 0.3 K/mm3 (0.0-0.8); MONO % 4.8 % (0.0-5.0); NEUTROPHILS # 4.1 K/mm3 (1.8-7.7); NEUTROPHILS % 63.2 % (36.0-66.0); RED CELL DISTRIBUTION WIDTH 14.9 % (11.5-14.5); WHITE BLOOD COUNT 6.5 K/mm3 (4.0-10.0)
[2016-11-25 12:35] LABS: ALBUMIN 3.6 GM/DL (3.2-5.2); ALBUMIN/GLOBULIN RATIO 0.92 (1.00-1.93); ALKALINE PHOSPHATASE 89 U/L (45-117); ALT/SGPT 26 U/L (12-78); ANION GAP 6 MEQ/L (8-16); AST/SGOT 15 U/L (15-37); BILIRUBIN,TOTAL 0.4 MG/DL (0.2-1.0); BLOOD UREA NITROGEN 16 MG/DL (7-18); CALCIUM LEVEL 7.8 MG/DL (8.5-10.1); CARBON DIOXIDE LEVEL 29 MEQ/L (21-32); CHLORIDE LEVEL 106 MEQ/L (98-107); CREATININE FOR GFR 0.92 MG/DL (0.70-1.30); FERRITIN 52 NG/ML (26-388); GLOMERULAR FILTRATION RATE > 60.0 (>60); GLUCOSE, FASTING 101 MG/DL (70-105); PHOSPHORUS LEVEL 2.5 MG/DL (2.5-4.9); POTASSIUM SERUM 4.2 MEQ/L (3.5-5.1); SODIUM LEVEL 141 MEQ/L (136-145); TOTAL PROTEIN 7.5 GM/DL (6.4-8.2)
[2016-11-25 12:38] LABS: VITAMIN B12 LEVEL 287 PG/ML
[2016-11-25 12:39] LABS: FOLATE 8.7 NG/ML
== END ==
LOC: M LAB 10:56
PROVIDERS: ATTEND Physician Assistant Medical
DX: R53.83 Other fatigue (principal)

== ENCOUNTER 2017-03-10 13:39 | Emergency (ER) | payer OTHER, SELFPAY ==
[~2017-03-10] VITALS: Ht 165.1 cm; Wt 171.6 kg
[2017-03-10 13:39] VITALS: BP 163/84
[~2017-03-10 13:39] MED LIST changes: +ASPI1TAB PO; +ULTR50TA8 PO
[2017-03-10] MEDS ORDERED: GENTAMICIN 0.3% OPHTH SOL 5 ML BTL OD ONE (15:15)
== END 2017-03-10 17:53 | disposition left against medical advice (07) ==
LOC: M ED 13:39
DX: H10.9 Unspecified conjunctivitis (principal); R10.9 Unspecified abdominal pain; I25.2 Old myocardial infarction; Z79.82 Long term (current) use of aspirin; Z53.21 Procedure and treatment not carried out due to patient leaving prior to being seen by health care provider

== ENCOUNTER → 2017-07-29 | Outpatient (CLI) | payer BC ==
[2017-07-29 10:50] LABS: BASO % 0.4 % (0.0-1.0); EOS # 0.2 10^3/uL (0.0-0.50); EOS % 2.5 % (0.0-3.0); HEMOGLOBIN 13.1 g/dl (14.0-18.0); IMMATURE GRANULOCYTE % 0.4 % (0-0); LYMPH % 26.4 % (24.0-44.0); MEAN CORPUSCULAR HEMOGLOBIN 25.1 pg (27.0-33.0); MEAN CORPUSCULAR HGB CONC 31.2 g/dl (32.0-36.5); MEAN CORPUSCULAR VOLUME 80.5 fl (80.0-96.0); MONO # 0.4 10^3/uL (0.0-0.8); MONO % 5.3 % (0.0-5.0); PLATELET COUNT, AUTOMATED 187 10^3/uL (150-450); RED BLOOD COUNT 5.22 10^6/uL (4.30-6.10); RED CELL DISTRIBUTION WIDTH 15.6 % (11.5-14.5); WHITE BLOOD COUNT 7.7 10^3/uL (4.0-10.0)
[2017-07-29 11:10] LABS: ESTIMATED AVERAGE GLUCOSE 111 MG/DL (60-110); HEMOGLOBIN A1c 5.5 %
[2017-07-29 11:22] LABS: ALBUMIN 3.9 GM/DL (3.2-5.2); ALBUMIN/GLOBULIN RATIO 0.93 (1.00-1.93); ALKALINE PHOSPHATASE 103 U/L (45-117); ALT/SGPT 34 U/L (12-78); ANION GAP 4 MEQ/L (8-16); AST/SGOT 24 U/L (7-37); BILIRUBIN,TOTAL 0.4 MG/DL (0.2-1.0); BLOOD UREA NITROGEN 14 MG/DL (7-18); CALCIUM LEVEL 8.7 MG/DL (8.5-10.1); CARBON DIOXIDE LEVEL 31 MEQ/L (21-32); CHLORIDE LEVEL 104 MEQ/L (98-107); CPK CREATINE PHOSPHOKINASE 474 U/L (39-308); FERRITIN 59 NG/ML (26-388); GLOMERULAR FILTRATION RATE > 60.0 (>60); GLUCOSE, FASTING 102 MG/DL (70-105); IRON (FE) 42 UG/DL (65-175); POTASSIUM SERUM 4.5 MEQ/L (3.5-5.1); RHEUMATOID FACTOR QUANT 12.2 IU/ML (0-15.0); SODIUM LEVEL 139 MEQ/L (136-145); THYROID STIMULATING HORMONE 0.615 uIU/ML (0.358-3.740); TOTAL PROTEIN 8.1 GM/DL (6.4-8.2)
[2017-07-29 11:23] LABS: ERYTHROCYTE SEDIMENTATION RATE 42 mm/hr (0-15)
[2017-07-29 11:24] LABS: ESTRADIOL 43.5 PG/ML (<39.8); VITAMIN B12 LEVEL 401 PG/ML
[2017-07-29 11:25] LABS: FOLATE 10.5 NG/ML
[2017-07-29 12:03] LABS: TOTAL 25(OH) VITAMIN D 7.3 NG/ML (30.0-100.0)
[2017-07-31 00:07] LABS: ANTINUCLEAR ANTIBODIES DIRECT Negative (Negative); Lyme Disease IgG/IgM Antibodie <0.91 ISR (0.00-0.90); Lyme Disease IgM Ab Quantitati <0.80 index (0.00-0.79); TESTOSTERONE FREE (DIRECT) 16.1 pg/mL (8.7-25.1)
[2017-07-31 11:15] LABS: ALBUMIN 4.14 GM/DL (3.29-5.55); ALBUMIN % 51.1 % (55.8-66.1); ALPHA-1-GLOBULIN % 4.4 % (2.9-4.9); ALPHA-1-GLOBULINS 0.36 GM/DL (0.17-0.41); ALPHA-2-GLOBULINS 0.87 GM/DL (0.42-0.99); ALPHA-2-GLOBULINS % 10.7 % (7.1-11.8); BETA-1-GLOBULINS 0.56 GM/DL (0.28-0.60); BETA-1-GLOBULINS % 6.9 % (4.7-7.2); BETA-2-GLOBULINS 0.72 GM/DL (0.19-0.55); BETA-2-GLOBULINS % 8.9 % (3.2-6.5); GAMMA GLOBULINS 1.46 GM/DL (0.65-1.58)
[2017-08-05 10:56] LABS: DRVV SCREEN 54.8 SEC
[2017-08-05 10:58] LABS: PTT LUPUS TYPE ANTICOAG SCREEN 1.3 (0-1.2)
[2017-08-05 11:18] LABS: DRVV CONFIRM 39.6 SEC
== END ==
LOC: M LAB 10:00
DX: R10.84 Generalized abdominal pain (principal); R53.83 Other fatigue; K42.9 Umbilical hernia without obstruction or gangrene
CPT/HCPCS: 76705

== ENCOUNTER 2017-09-28 12:34 | Emergency (ER) | payer BC, SELFPAY ==
[2017-09-28] MEDS: NS 1,000 ML IV (14:30)
[2017-09-28] MEDS: ONDANSETRON 4MG/2ML VIAL (J2405) IV (14:57)
[2017-09-28] MEDS: KETOROLAC 30 MG/ML VIAL (J1885) IV (14:58)
[2017-09-28] MEDS: diphenhydrAMINE INJ 50MG/ML VIAL (J1200) IV (14:58)
[2017-09-28 15:00] LABS: BASO % 0.2 % (0.0-1.0); EOS # 0.2 10^3/uL (0.0-0.50); EOS % 2.8 % (0.0-3.0); HEMOGLOBIN 13.8 g/dl (14.0-18.0); IMMATURE GRANULOCYTE % 0.3 % (0-3.0); LYMPH # 2.1 10^3/uL (1.5-4.5); LYMPH % 31.9 % (24.0-44.0); MEAN CORPUSCULAR HEMOGLOBIN 25.2 pg (27.0-33.0); MEAN CORPUSCULAR HGB CONC 32.1 g/dl (32.0-36.5); MEAN CORPUSCULAR VOLUME 78.5 fl (80.0-96.0); MONO # 0.4 10^3/uL (0.0-0.8); MONO % 6.8 % (0.0-5.0); NEUTROPHILS # 3.7 10^3/uL (1.8-7.7); PLATELET COUNT, AUTOMATED 179 10^3/uL (150-450); RED BLOOD COUNT 5.48 10^6/uL (4.30-6.10); RED CELL DISTRIBUTION WIDTH 15.7 % (11.5-14.5); WHITE BLOOD COUNT 6.4 10^3/uL (4.0-10.0)
[2017-09-28 15:34] LABS: ANION GAP 7 MEQ/L (8-16); BLOOD UREA NITROGEN 12 MG/DL (7-18); CALCIUM LEVEL 8.7 MG/DL (8.5-10.1); CARBON DIOXIDE LEVEL 30 MEQ/L (21-32); CHLORIDE LEVEL 103 MEQ/L (98-107); CK-MB VALUE MASS 4.3 NG/ML (0.0-3.6); CPK CREATINE PHOSPHOKINASE 660 U/L (39-308); CREATININE FOR GFR 0.96 MG/DL (0.70-1.30); GLOMERULAR FILTRATION RATE > 60.0 (>60); GLUCOSE, FASTING 88 MG/DL (70-100); MB/CK RELATIVE INDEX 0.65 (< OR =4); POTASSIUM SERUM 4.3 MEQ/L (3.5-5.1); SODIUM LEVEL 140 MEQ/L (136-145); TROPONIN I < 0.02 NG/ML (< 0.10)
[2017-09-28] MEDS: ACETAMINOPHEN 325 MG TAB PO (16:38)
[2017-09-28 18:13] LABS: CK-MB VALUE MASS 3.6 NG/ML (0.0-3.6); CPK CREATINE PHOSPHOKINASE 556 U/L (39-308); MB/CK RELATIVE INDEX 0.64 (< OR =4); TROPONIN I < 0.02 NG/ML (< 0.10)
== END 2017-09-28 18:26 | disposition home or self-care (01) ==
LOC: M ED 12:34
DX: R51 Headache (principal); J06.9 Acute upper respiratory infection, unspecified; R07.89 Other chest pain; I25.2 Old myocardial infarction; Z77.098 Contact with and (suspected) exposure to other hazardous, chiefly nonmedicinal, chemicals; Z79.899 Other long term (current) drug therapy
CPT/HCPCS: J1200

== ENCOUNTER 2018-01-02 07:08 | Emergency (ER) | payer MEDICAID, BC ==
[2018-01-02] MEDS: NS 1,000 ML IV (07:40)
[2018-01-02] MEDS: METOCLOPRAMIDE INJ 10MG/2ML VIAL (J2765) IV (08:07)
[2018-01-02] MEDS: KETOROLAC 30 MG/ML VIAL (J1885) IV (08:07)
[2018-01-02] MEDS: diphenhydrAMINE INJ 50MG/ML VIAL (J1200) IV (08:07)
== END 2018-01-02 09:47 | disposition home or self-care (01) ==
LOC: M ED 07:08
DX: G44.009 Cluster headache syndrome, unspecified, not intractable (principal); I25.2 Old myocardial infarction; K21.9 Gastro-esophageal reflux disease without esophagitis; Z72.0 Tobacco use; Z79.899 Other long term (current) drug therapy
CPT/HCPCS: J1200

== ENCOUNTER 2018-03-14 22:49 | Emergency (ER) | payer OTHER, MEDICAID | END 2018-03-15 03:19 | disposition left against medical advice (07) | LOC: M ED 22:49 | DX: Z53.20 Procedure and treatment not carried out because of patient's decision for unspecified reasons (principal) ==

== ENCOUNTER → 2018-06-14 | Outpatient (REF) | payer OTHER ==
[2018-06-14 19:09] LABS: BASO % 0.4 % (0.0-1.0); EOS # 0.3 10^3/uL (0.0-0.50); EOS % 3.1 % (0.0-3.0); HEMATOCRIT 47.3 % (42.0-52.0); HEMOGLOBIN 14.7 g/dl (13.5-17.5); IMMATURE GRANULOCYTE % 0.6 % (0-3.0); LYMPH # 2.1 10^3/uL (1.5-4.5); LYMPH % 23.7 % (24.0-44.0); MEAN CORPUSCULAR HEMOGLOBIN 25.1 pg (27.0-33.0); MEAN CORPUSCULAR HGB CONC 31.1 g/dl (32.0-36.5); MEAN CORPUSCULAR VOLUME 80.7 fl (80.0-96.0); MONO # 0.4 10^3/uL (0.0-0.8); MONO % 4.4 % (0.0-5.0); NEUTROPHILS # 6.1 10^3/uL (1.8-7.7); NEUTROPHILS % 67.8 % (36.0-66.0); PLATELET COUNT, AUTOMATED 200 10^3/uL (150-450); RED BLOOD COUNT 5.86 10^6/uL (4.30-6.10)
[2018-06-14 19:25] LABS: ALBUMIN 3.7 GM/DL (3.2-5.2); ALBUMIN/GLOBULIN RATIO 0.86 (1.00-1.93); ALKALINE PHOSPHATASE 127 U/L (45-117); ALT/SGPT 22 U/L (12-78); ANION GAP 6 MEQ/L (8-16); AST/SGOT 14 U/L (7-37); BILIRUBIN,TOTAL 0.6 MG/DL (0.2-1.0); BLOOD UREA NITROGEN 11 MG/DL (7-18); CALCIUM LEVEL 8.5 MG/DL (8.5-10.1); CARBON DIOXIDE LEVEL 30 MEQ/L (21-32); CHLORIDE LEVEL 102 MEQ/L (98-107); CHOLESTEROL LEVEL 182 MG/DL (<200); CHOLESTEROL RISK RATIO 6.275 (<5); ESTIMATED AVERAGE GLUCOSE 114 MG/DL (60-110); GLOMERULAR FILTRATION RATE > 60.0 (>60); GLUCOSE, FASTING 84 MG/DL (70-100); HDL CHOLESTEROL 29 MG/DL (>40); HEMOGLOBIN A1c 5.6 %; LDL CHOLESTEROL 80 MG/DL (<100); NON-HDL-C 153 MG/DL; POTASSIUM SERUM 4.1 MEQ/L (3.5-5.1); SODIUM LEVEL 138 MEQ/L (136-145); THYROID STIMULATING HORMONE 0.481 uIU/ML (0.358-3.740); TOTAL 25(OH) VITAMIN D 15.4 NG/ML (30.0-100.0); TRIGLYCERIDES LEVEL 365 MG/DL (<150)
== END ==
LOC: M LAB REF 18:37
DX: Z13.9 Encounter for screening, unspecified (principal)

== ENCOUNTER 2018-07-13 19:38 | Emergency (ER) | payer OTHER ==
[~2018-07-13] VITALS: Ht 165.1 cm; Wt 160.0 kg
[~2018-07-13 19:38] MED LIST changes: +ASPI-222 PO; -ASPI325T28 PO; +IBUP-1022 PO; +KETO10TAB PO; +NAPR-50 PO; +OMEP40CA2 PO; +REGL10TA6 PO; +VITA50005 PO
[2018-07-13 20:04] LABS: BASO % 0.3 % (0.0-1.0); EOS # 0.3 10^3/uL (0.0-0.50); EOS % 2.9 % (0.0-3.0); HEMATOCRIT 41.4 % (42.0-52.0); HEMOGLOBIN 13.4 g/dl (13.5-17.5); LYMPH # 2.4 10^3/uL (1.5-4.5); LYMPH % 23.8 % (24.0-44.0); MEAN CORPUSCULAR HEMOGLOBIN 25.7 pg (27.0-33.0); MEAN CORPUSCULAR HGB CONC 32.4 g/dl (32.0-36.5); MEAN CORPUSCULAR VOLUME 79.5 fl (80.0-96.0); MONO # 0.4 10^3/uL (0.0-0.8); MONO % 4.3 % (0.0-5.0); NEUTROPHILS % 68.3 % (36.0-66.0); PLATELET COUNT, AUTOMATED 206 10^3/uL (150-450); RED BLOOD COUNT 5.21 10^6/uL (4.30-6.10); WHITE BLOOD COUNT 10.2 10^3/uL (4.0-10.0)
[2018-07-13 20:29] LABS: ALBUMIN 3.4 GM/DL (3.2-5.2); ALT/SGPT 28 U/L (12-78); BILIRUBIN,DIRECT < 0.1 MG/DL (0.0-0.2); BILIRUBIN,TOTAL 0.2 MG/DL (0.2-1.0); BLOOD UREA NITROGEN 15 MG/DL (7-18); CALCIUM LEVEL 8.3 MG/DL (8.5-10.1); CARBON DIOXIDE LEVEL 28 MEQ/L (21-32); CHLORIDE LEVEL 107 MEQ/L (98-107); CPK CREATINE PHOSPHOKINASE 418 U/L (39-308); CREATININE FOR GFR 1.35 MG/DL (0.70-1.30); FREE T4 0.77 NG/DL (0.76-1.46); GLOMERULAR FILTRATION RATE > 60.0 (>60); GLUCOSE, FASTING 89 MG/DL (70-100); LIPASE 146 U/L (73-393); MB/CK RELATIVE INDEX 1.08 (< OR =4); POTASSIUM SERUM 3.8 MEQ/L (3.5-5.1); SODIUM LEVEL 141 MEQ/L (136-145); THYROID STIMULATING HORMONE 0.575 uIU/ML (0.358-3.740); TOTAL PROTEIN 7.2 GM/DL (6.4-8.2); TROPONIN I < 0.02 NG/ML (< 0.10)
[2018-07-13] MEDS ORDERED: NITROGLYCERIN 0.4 MG SUBL TABLET SL PRN (20:30)
[2018-07-13] MEDS ORDERED: GI COCKTAIL 50ML BTL(HYOSCYAMINE/MAALOX/LIDOCAINE VISCOUS)(1:3:1) PO ONE (20:30)
[2018-07-13 20:42] LABS: INR 1.07
--- NOTE | 2018-07-13 20:45 | REP ---
Clinical: Acute chest pain . Comparison: 09/28/2017 . Technique: PA and lateral. Findings: The mediastinum and cardiac silhouette are normal. The lung gatica are clear and without acute consolidation, effusion, or pneumothorax. The skeletal structures are intact and normal. Impression: 1. No acute cardiopulmonary process. Electronically Signed by Valdemar Landry MD 07/13/2018 08:36 P
[2018-07-13 22:47] LABS: CPK CREATINE PHOSPHOKINASE 372 U/L (39-308); MB/CK RELATIVE INDEX 1.13 (< OR =4); TROPONIN I < 0.02 NG/ML (< 0.10)
[2018-07-13 23:20] VITALS: BP 126/61
--- NOTE | 2018-07-14 17:02 | ECGEPIP ---
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
--- NOTE | 2018-07-14 17:03 | ECGEPIP ---
Stationary ECG Study [facility] - ED Test Date: 2018-07-13 Pat Name: ESTRELLA MOSES Department: Room: - Gender: M Client Services Representative: af : 1980 Requested By: GARDENIA Crain Order Number: [id number] Reading MD: Yessica Castillo Measurements Intervals [place] Rate: 67 P: 6 WY: 162 QRS: -24 QRSD: 96 T: -4 QT: 388 QTc: 411 Interpretive Statements SINUS RHYTHM BORDERLINE LEFT AXIS DEVIATION NSTTW ABNORMALITY DECREASED RATE 07/13/18 19:47 Electronically Signed On 07-14-2018 17:03:35 EST by Yessica Castillo
== END 2018-07-13 23:31 | disposition home or self-care (01) ==
LOC: M ED 19:38
DX: R07.89 Other chest pain (principal); I10 Essential (primary) hypertension; E78.5 Hyperlipidemia, unspecified

== ENCOUNTER 2018-08-03 08:42 | Emergency (ER) | payer OTHER ==
[~2018-08-03] VITALS: Ht 165.1 cm; Wt 159.1 kg
[2018-08-03 08:42] VITALS: BP 138/88
[2018-08-03] MEDS ORDERED: RANI1SYP PO (08:46)
[2018-08-03] MEDS ORDERED: IBUP-1022 PO (09:06)
[2018-08-03] MEDS ORDERED: ROBA500T PO (09:06)
== END 2018-08-03 09:17 | disposition home or self-care (01) ==
LOC: M ED 08:42
DX: S39.012A Strain of muscle, fascia and tendon of lower back, initial encounter (principal); W18.49XA Other slipping, tripping and stumbling without falling, initial encounter; Y92.89 Other specified places as the place of occurrence of the external cause; I25.2 Old myocardial infarction; Z79.899 Other long term (current) drug therapy

== ENCOUNTER 2018-10-25 14:41 | Emergency (ER) | payer OTHER ==
[~2018-10-25] VITALS: Ht 165.1 cm; Wt 160.9 kg
[~2018-10-25 14:41] MED LIST changes: -ASPI1TAB PO; +ASPI81TA26 PO; -NAPR-50 PO; +NAPR-837 PO; +RANI1SYP PO; +ROBA500T PO
[2018-10-25] MEDS ORDERED: PRED20TA PO (16:28)
[2018-10-25] MEDS ORDERED: ULTR50TA8 PO (16:28)
[2018-10-25 16:41] VITALS: BP 155/95
== END 2018-10-25 16:45 | disposition home or self-care (01) ==
LOC: M ED 14:41
DX: M75.81 Other shoulder lesions, right shoulder (principal); F17.210 Nicotine dependence, cigarettes, uncomplicated; Z79.899 Other long term (current) drug therapy

== ENCOUNTER 2018-12-11 07:47 | Emergency (ER) | payer MEDICAID, OTHER, SELFPAY ==
[~2018-12-11] VITALS: Ht 165.1 cm; Wt 157.1 kg
[2018-12-11] MEDS ORDERED: ONDANSETRON 4MG/2ML VIAL (J2405) IV ONE (08:30)
[2018-12-11] MEDS ORDERED: NS 500 ML IV ONE (08:30)
[2018-12-11] MEDS ORDERED: KETOROLAC 30 MG/ML VIAL (J1885) IV ONE (08:30)
[2018-12-11] MEDS ORDERED: ISOVUE-370 76% 100ML VIAL (Q9967) As Ordered ONE (08:56)
[2018-12-11 09:00] LABS: BASO % 0.4 % (0.0-1.0); EOS # 0.3 10^3/uL (0.0-0.50); EOS % 3.7 % (0.0-3.0); HEMATOCRIT 45.5 % (42.0-52.0); HEMOGLOBIN 14.6 g/dl (13.5-17.5); LYMPH # 2.1 10^3/uL (1.5-4.5); LYMPH % 24.3 % (24.0-44.0); MEAN CORPUSCULAR HEMOGLOBIN 26.3 pg (27.0-33.0); MEAN CORPUSCULAR HGB CONC 32.1 g/dl (32.0-36.5); MONO # 0.4 10^3/uL (0.0-0.8); MONO % 5.2 % (0.0-5.0); NEUTROPHILS # 5.6 10^3/uL (1.8-7.7); NEUTROPHILS % 65.9 % (36.0-66.0); PLATELET COUNT, AUTOMATED 162 10^3/uL (150-450); RED BLOOD COUNT 5.55 10^6/uL (4.30-6.10); WHITE BLOOD COUNT 8.5 10^3/uL (4.0-10.0)
[2018-12-11 09:17] LABS: ALBUMIN 3.6 GM/DL (3.2-5.2); BILIRUBIN,DIRECT 0.1 MG/DL (0.0-0.2); BILIRUBIN,TOTAL 0.6 MG/DL (0.2-1.0); TOTAL PROTEIN 7.4 GM/DL (6.4-8.2)
--- NOTE | 2018-12-11 09:19 | REP ---
Clinical: Right lower extremity pain . Technique: Jimenes scale and color Doppler evaluation using linear high frequency transducer. Findings: Ultrasound examination of the right lower extremity deep venous structures from the common femoral vein to the popliteal vein demonstrates normal compressibility flow and wave patterns in response to respiration and augmentation. There is no evidence for deep venous thrombosis. Impression: No evidence for deep venous thrombosis. Electronically Signed by Valdemar Landry MD 12/11/2018 09:11 A
[2018-12-11] MEDS ORDERED: NORC1TAB7 PO (09:28)
--- NOTE | 2018-12-11 09:30 | REP ---
Clinical: Right-sided abdominal pain including right lower quadrant and right flank pain. Technique: Axial pre and postcontrast images from the lung bases to the pubic symphysis with coronal and sagittal re-formations using 100 ml Isovue 370 intravenous contrast material. Findings: Lung bases are clear. Visualized heart and pericardium normal. Liver, spleen, pancreas, bilateral adrenal glands and kidneys are normal. Evidence of prior cholecystectomy noted. The enteric system is without obstruction or acute inflammatory process. A normal cecum and terminal ileum are identified in the right lower quadrant. Pelvis demonstrates normal bladder and age appropriate prostate/seminal vesicles. No pelvic fluid. No ascites. No free air. No adenopathy. Abdominal aorta without aneurysm or dissection. Impression: 1. No acute abdominopelvic pathology appreciated. 2. Evidence of prior cholecystectomy and appendectomy. Electronically Signed by Valdemar Landry MD 12/11/2018 09:22 A
[2018-12-11 09:39] VITALS: BP 117/60
== END 2018-12-11 09:41 | disposition home or self-care (01) ==
LOC: M ED 07:47
DX: R10.31 Right lower quadrant pain (principal); M79.604 Pain in right leg; R11.0 Nausea; K21.9 Gastro-esophageal reflux disease without esophagitis; I25.10 Atherosclerotic heart disease of native coronary artery without angina pectoris; I25.2 Old myocardial infarction; F17.200 Nicotine dependence, unspecified, uncomplicated; Z79.899 Other long term (current) drug therapy
CPT/HCPCS: 74178; 80047; 80076; 81001; 83605; 83690; 85025; 87040; 93041; 93971; 96374; 96375; 99284; J1885; J2405; Q9967

== ENCOUNTER 2019-01-27 12:17 | Emergency (ER) | payer MEDICAID, OTHER ==
[~2019-01-27] VITALS: Ht 167.6 cm; Wt 156.8 kg
[~2019-01-27 12:17] MED LIST changes: +NORC1TAB7 PO
[2019-01-27] MEDS ORDERED: NS 1,000 ML IV ONE (14:15)
[2019-01-27 14:38] LABS: BASO % 0.4 % (0.0-1.0); EOS # 0.3 10^3/uL (0.0-0.50); EOS % 3.6 % (0.0-3.0); HEMATOCRIT 44.7 % (42.0-52.0); HEMOGLOBIN 14.2 g/dl (13.5-17.5); LYMPH # 1.9 10^3/uL (1.5-4.5); MEAN CORPUSCULAR HEMOGLOBIN 25.5 pg (27.0-33.0); MEAN CORPUSCULAR HGB CONC 31.8 g/dl (32.0-36.5); MEAN CORPUSCULAR VOLUME 80.4 fl (80.0-96.0); MONO # 0.4 10^3/uL (0.0-0.8); MONO % 4.9 % (0.0-5.0); NEUTROPHILS # 4.6 10^3/uL (1.8-7.7); NEUTROPHILS % 63.7 % (36.0-66.0); PLATELET COUNT, AUTOMATED 167 10^3/uL (150-450); RED BLOOD COUNT 5.56 10^6/uL (4.30-6.10); WHITE BLOOD COUNT 7.2 10^3/uL (4.0-10.0)
[2019-01-27 15:05] LABS: ALBUMIN 3.5 GM/DL (3.2-5.2); ALT/SGPT 27 U/L (12-78); BILIRUBIN,DIRECT 0.1 MG/DL (0.0-0.2); BILIRUBIN,TOTAL 0.4 MG/DL (0.2-1.0); BLOOD UREA NITROGEN 14 MG/DL (7-18); CALCIUM LEVEL 8.9 MG/DL (8.5-10.1); CARBON DIOXIDE LEVEL 30 MEQ/L (21-32); CHLORIDE LEVEL 104 MEQ/L (98-107); CREATININE FOR GFR 0.96 MG/DL (0.70-1.30); GLOMERULAR FILTRATION RATE > 60.0 (>60); GLUCOSE, FASTING 94 MG/DL (70-100); LIPASE 141 U/L (73-393); POTASSIUM SERUM 4.3 MEQ/L (3.5-5.1); SODIUM LEVEL 138 MEQ/L (136-145); TOTAL PROTEIN 7.9 GM/DL (6.4-8.2)
[2019-01-27] MEDS ORDERED: ISOVUE-370 76% 100ML VIAL (Q9967) As Ordered ONE (15:14)
[2019-01-27] MEDS ORDERED: KETOROLAC 30 MG/ML VIAL (J1885) IV ONE (15:15)
[2019-01-27] MEDS ORDERED: ONDANSETRON 4MG/2ML VIAL (J2405) IV ONE (15:15)
--- NOTE | 2019-01-27 15:58 | REP ---
CT ABDOMEN AND PELVIS WITH IV CONTRAST: TECHNIQUE: Axial contrast enhanced images from the lung bases to the pubic symphysis using 100 mL Isovue 370 intravenous contrast material with multiplanar reformations. COMPARISON: 12/12/2018. The visualized lung bases demonstrate no infiltrate. The liver is unremarkable. Patient has had a prior cholecystectomy. There is no biliary dilatation. Spleen, adrenals, pancreas, and kidneys are unremarkable. There is no hydronephrosis. There is no abdominal aortic aneurysm. There is no adenopathy. There is no free air or free fluid. There is no bowel wall thickening. There is a small left paraumbilical hernia containing fat. The appearance is unchanged since the prior exam. The patient has had a prior appendectomy. No pelvic mass is seen. Urinary bladder is mildly distended and appears grossly unremarkable. IMPRESSION: No acute pathology identified. Patient is status post cholecystectomy and appendectomy. No free air or free fluid. Small left paraumbilical hernia contains fat and is unchanged since prior study of 12/11/2018. Electronically Signed by Clyde Jimenes MD 01/30/2019 07:18 P
[2019-01-27] MEDS ORDERED: IBUP80TA PO (16:10)
[2019-01-27 16:37] VITALS: BP 142/84
== END 2019-01-27 16:39 | disposition home or self-care (01) ==
LOC: M ED 12:17
DX: K42.9 Umbilical hernia without obstruction or gangrene (principal); I10 Essential (primary) hypertension; K21.9 Gastro-esophageal reflux disease without esophagitis; Z79.899 Other long term (current) drug therapy; F17.210 Nicotine dependence, cigarettes, uncomplicated
CPT/HCPCS: 74177; 80048; 80076; 83690; 85025; 96374; 96375; 99284; J1885; J2405; Q9967

== ENCOUNTER → 2019-03-16 | Outpatient (REF) | payer OTHER ==
[~2019-03-16] MED LIST changes: -ASPI-222 PO; +ASPI-527 PO; +ENDO5TAB PO; +GABA-843 PO; +HYDR12CA PO; +IBUP80TA PO; +KEFL500C17 PO; +MILKSUS7; +MIRA3350 PO; -OMEP40CA2 PO; +OMEP40CA97 PO; +TESS100C PO; +ZANT150T40 PO
[2019-03-16 17:29] LABS: BASO % 0.4 % (0.0-1.0); EOS # 0.3 10^3/uL (0.0-0.5); HEMATOCRIT 42.7 % (42.0-52.0); HEMOGLOBIN 13.4 g/dl (13.5-17.5); LYMPH # 2.2 10^3/uL (1.5-5.0); LYMPH % 28.4 % (24.0-44.0); MEAN CORPUSCULAR HEMOGLOBIN 25.4 pg (27.0-33.0); MEAN CORPUSCULAR HGB CONC 31.4 g/dl (32.0-36.5); MONO # 0.4 10^3/uL (0.0-0.8); MONO % 5.3 % (0.0-5.0); NEUTROPHILS # 4.7 10^3/uL (1.5-8.5); NEUTROPHILS % 61.5 % (36.0-66.0); PLATELET COUNT, AUTOMATED 176 10^3/uL (150-450); RED BLOOD COUNT 5.27 10^6/uL (4.30-6.10); WHITE BLOOD COUNT 7.7 10^3/uL (4.0-10.0)
[2019-03-16 17:39] LABS: ALBUMIN 3.9 GM/DL (3.2-5.2); ALT/SGPT 28 U/L (12-78); BILIRUBIN,TOTAL 0.5 MG/DL (0.2-1.0); BLOOD UREA NITROGEN 16 MG/DL (7-18); CALCIUM LEVEL 9.3 MG/DL (8.5-10.1); CARBON DIOXIDE LEVEL 30 MEQ/L (21-32); CHLORIDE LEVEL 105 MEQ/L (98-107); CREATININE FOR GFR 0.95 MG/DL (0.70-1.30); GLOMERULAR FILTRATION RATE > 60.0 (>60); GLUCOSE, FASTING 93 MG/DL (70-100); POTASSIUM SERUM 4.2 MEQ/L (3.5-5.1); SODIUM LEVEL 141 MEQ/L (136-145); TOTAL PROTEIN 8.1 GM/DL (6.4-8.2)
== END ==
LOC: M LAB REF 16:52
PROVIDERS: ATTEND Nurse Practitioner Family
DX: K42.9 Umbilical hernia without obstruction or gangrene (principal)

== ENCOUNTER 2019-03-30 05:43 | Day surgery (SDC) | payer OTHER ==
[~2019-03-30] VITALS: Ht 165.1 cm; Wt 162.8 kg
[~2019-03-30 05:43] MED LIST changes: -ENDO5TAB PO; -GABA-843 PO; -HYDR12CA PO; -KEFL500C17 PO; -MILKSUS7; -MIRA3350 PO; +OMEP40CA2 PO; -OMEP40CA97 PO; -TESS100C PO
[2019-03-30] MEDS ORDERED: LR 1,000 ML IV ONE (06:00)
[2019-03-30] MEDS ORDERED: LIDOCAINE 1% MDV 20ML VIAL SQ PRN (06:00)
[2019-03-30] MEDS ORDERED: BUPIVACAINE HCL 0.25% 10 ML VIAL As Ordered ONE ×3 (07:08→08:27)
[2019-03-30] MEDS ORDERED: BUPIVACAINE LIPOSOME/PF 1.3% 20ML VIAL (13.3MG/ML)(EXPAREL)(C9290 PER1MG) As Ordered ONE (07:11)
[2019-03-30] MEDS ORDERED: LIDOCAINE 1% SDV INJ 30 ML VIAL As Ordered ONE (07:11)
[2019-03-30] MEDS ORDERED: ROCURONIUM BROMIDE 50 MG/5 ML VIAL As Ordered ONE ×2 (08:03→08:09)
[2019-03-30] MEDS ORDERED: SUGAMMADEX SODIUM 500 MG/5 ML VIAL (BRIDION) As Ordered ONE (08:03)
[2019-03-30] MEDS ORDERED: DESFLURANE 240 ML INHALANT As Ordered ONE ×2 (08:03→12:42)
[2019-03-30] MEDS ORDERED: ACETAMINOPHEN 1000MG 100ML IV BTL (OFIRMEV) (J0131 PER 10MG) As Ordered ONE (08:03)
[2019-03-30] MEDS ORDERED: fentaNYL 250 MCG/5 ML INJECTION (J3010) As Ordered ONE (08:03)
[2019-03-30] MEDS ORDERED: ONDANSETRON 4MG/2ML VIAL (J2405) As Ordered ONE (08:03)
[2019-03-30] MEDS ORDERED: dexameTHASONE 4 MG/ML 1ML VIAL (J1100) As Ordered ONE (08:03)
[2019-03-30] MEDS ORDERED: LIDOCAINE 2% INJ 100 MG/5 ML SDV (FOR ANES.) As Ordered ONE (08:03)
[2019-03-30] MEDS ORDERED: METOCLOPRAMIDE INJ 10MG/2ML VIAL (J2765) As Ordered ONE (08:03)
[2019-03-30] MEDS ORDERED: PROPOFOL 200 MG/20 ML VIAL As Ordered ONE ×2 (08:03→13:17)
[2019-03-30] MEDS ORDERED: MIDAZOLAM INJ 2 MG/2 ML VIAL (J2250) As Ordered ONE (08:03)
[2019-03-30] MEDS ORDERED: ETOMIDATE INJ 20MG/10ML VIAL As Ordered ONE (08:03)
[2019-03-30] MEDS ORDERED: LIDOCAINE 2% JELLY 6 ML SYRINGE As Ordered ONE (08:03)
[2019-03-30] MEDS ORDERED: LACRILUBE (AKWA TEARS) OPHTH OINT 3.5 GM As Ordered ONE (08:05)
[2019-03-30] MEDS ORDERED: ePHEDrine SULFATE 25 MG/5 ML(5MG/ML) SYRINGE As Ordered ONE (08:08)
[2019-03-30] MEDS ORDERED: KETOROLAC 60 MG/2 ML VIAL (J1885) As Ordered ONE (08:25)
[2019-03-30] MEDS ORDERED: VECURONIUM BROMIDE 10 MG VIAL As Ordered ONE ×3 (08:31→11:47)
[2019-03-30] MEDS ORDERED: SUCCINYLCHOLINE 100 MG/5 ML SYRINGE (J0330) As Ordered ONE (08:36)
[2019-03-30] MEDS ORDERED: fentaNYL 100 MCG/2 ML INJECTION (J3010) As Ordered ONE ×2 (09:59→13:46)
[2019-03-30] MEDS: fentaNYL 100 MCG/2 ML INJECTION (J3010) IV PRN ×4 (13:48→14:05)
[2019-03-30] MEDS: PERCOCET 5MG/325MG TAB PO PRN ×2 (14:41→16:30)
[2019-03-30] MEDS ORDERED: NORCO, ANEXSIA 5/325MG TABLET (HYDROcodone/ACETAMINOPHEN) PO PRN ×2 (15:00)
[2019-03-30] MEDS ORDERED: LR 1,000 ML IV SCH (15:00)
[2019-03-30] MEDS ORDERED: MORPHINE 10 MG/ML 1ML VIAL (J2270) IV PRN (15:00)
[2019-03-30] MEDS ORDERED: ONDANSETRON 4MG/2ML VIAL (J2405) IV PRN (15:00)
[2019-03-30] MEDS ORDERED: PERCOCET 5MG/325MG TAB As Ordered ONE (16:29)
[2019-03-30 17:30] VITALS: BP 142/73
[2019-03-30] MEDS ORDERED: KETOROLAC 30 MG/ML VIAL (J1885) IV PRN (19:00)
== END 2019-03-30 17:40 | disposition home or self-care (01) ==
LOC: M SDC 05:43
PROVIDERS: ATTEND Surgery
DX: K42.9 Umbilical hernia without obstruction or gangrene (principal); I10 Essential (primary) hypertension; I25.2 Old myocardial infarction; G47.30 Sleep apnea, unspecified; E66.01 Morbid (severe) obesity due to excess calories; F17.210 Nicotine dependence, cigarettes, uncomplicated; Z79.899 Other long term (current) drug therapy
CPT/HCPCS: 49652; 88300; C1781; C9290; J0131; J0330; J0690; J1100; J1885; J2250; J2405; J2765; J3010

== ENCOUNTER 2019-04-09 00:24 | Emergency (ER) | payer OTHER ==
[~2019-04-09] VITALS: Ht 165.1 cm; Wt 159.1 kg
[2019-04-09] MEDS ORDERED: MILKSUS7 (00:36)
[2019-04-09] MEDS ORDERED: HYDR12CA PO (00:36)
[2019-04-09] MEDS ORDERED: NS 1,000 ML IV ONE (01:00)
[2019-04-09] MEDS ORDERED: MORPHINE 10 MG/ML 1ML VIAL (J2270) IV ONE (01:00)
[2019-04-09 01:30] LABS: BASO % 0.2 % (0.0-1.0); EOS # 0.4 10^3/uL (0.0-0.5); EOS % 4.2 % (0.0-3.0); HEMATOCRIT 39.6 % (42.0-52.0); HEMOGLOBIN 12.5 g/dl (13.5-17.5); LYMPH # 1.8 10^3/uL (1.5-5.0); LYMPH % 17.7 % (24.0-44.0); MEAN CORPUSCULAR HGB CONC 31.6 g/dl (32.0-36.5); MEAN CORPUSCULAR VOLUME 82.3 fl (80.0-96.0); MONO # 0.4 10^3/uL (0.0-0.8); MONO % 3.9 % (0.0-5.0); NEUTROPHILS # 7.6 10^3/uL (1.5-8.5); PLATELET COUNT, AUTOMATED 203 10^3/uL (150-450); RED BLOOD COUNT 4.81 10^6/uL (4.30-6.10); WHITE BLOOD COUNT 10.4 10^3/uL (4.0-10.0)
[2019-04-09 02:11] LABS: ALBUMIN 3.1 GM/DL (3.2-5.2); ALT/SGPT 29 U/L (12-78); BILIRUBIN,DIRECT < 0.1 MG/DL (0.0-0.2); BILIRUBIN,TOTAL 0.2 MG/DL (0.2-1.0); BLOOD UREA NITROGEN 12 MG/DL (7-18); CALCIUM LEVEL 8.3 MG/DL (8.5-10.1); CARBON DIOXIDE LEVEL 29 MEQ/L (21-32); CHLORIDE LEVEL 106 MEQ/L (98-107); CPK CREATINE PHOSPHOKINASE 181 U/L (39-308); CREATININE FOR GFR 1.04 MG/DL (0.70-1.30); GLOMERULAR FILTRATION RATE > 60.0 (>60); GLUCOSE, FASTING 102 MG/DL (70-100); LIPASE 97 U/L (73-393); POTASSIUM SERUM 3.8 MEQ/L (3.5-5.1); SODIUM LEVEL 142 MEQ/L (136-145); TOTAL PROTEIN 6.8 GM/DL (6.4-8.2); TROPONIN I < 0.02 NG/ML (< 0.10)
[2019-04-09] MEDS ORDERED: ISOVUE-370 76% 100ML VIAL (Q9967) As Ordered ONE (02:34)
--- NOTE | 2019-04-09 04:44 | REPVR ---
PROCEDURE INFORMATION: Exam: CT Abdomen and Pelvis With Contrast Exam date and time: 04/09/2019 2:30 AM Clinical history: 38 years old, male; Abdominal pain; Generalized; Prior surgery; Surgery date: <1 month; Surgery type: Hernia; Additional info: Post op pain TECHNIQUE: Imaging protocol: Computed tomography of the abdomen and pelvis with intravenous contrast. Radiation optimization: All CT scans at this facility use at least one of these dose optimization techniques: automated exposure control; mA and/or kV adjustment per patient size (includes targeted exams where dose is matched to clinical indication); or iterative reconstruction. Contrast material: ISO; Contrast volume: 100 ml; Contrast route: AC; COMPARISON: CT ABD/PEL W/IV CONTRAST ONLY 01/27/2019 3:15 PM FINDINGS: Limitations: Image quality is slightly reduced related to body habitus. Lungs: There is minimal bibasilar atelectasis. Liver: The liver is enlarged. The liver measures 23 cm craniocaudal. Gallbladder and bile ducts: There has been a cholecystectomy. There is no biliary ductal dilation. Pancreas: The pancreas is normal with no ductal dilation. Spleen: There is mild nonspecific splenomegaly. The spleen measures 15.8 cm. Adrenals: The adrenal glands are normal. Kidneys and ureters: The kidneys are unremarkable. There are no ureteral stones or hydronephrosis. Stomach and bowel: Mild diverticulosis is present in the distal colon. There is no dilation or thickening of the colon. Appendix: The appendix is not specifically identified. Intraperitoneal space: There is small amount of free fluid in the pelvis. There is no free intraperitoneal air. Vasculature: No aortic aneurysm. Lymph nodes: No lymphadenopathy is seen. Bladder: The bladder is unremarkable. No stones identified. Reproductive: The prostate gland and seminal vesicles are normal. Bones/joints: No suspicious osseous lesions. No acute fractures or dislocations. Soft tissues: There is an irregularly shaped collection of fluid with small pockets of air within the subcutaneous tissues in the midline in the anterior abdominal wall, measuring 10.2 x 7.0 x 11.8 cm. There is adjacent stranding in the subcutaneous tissues and there is thickening of the adjacent anterior abdominal wall musculature. There is a mesh in the anterior abdominal wall, not seen previously, and consistent with a hernia repair since the prior exam. There is stranding but no organized fluid collection both superficial and deep to the mesh in the anterior abdomen. IMPRESSION: 1. Large fluid collection consistent with abscess in the subcutaneous tissues in the midline of the anterior abdominal wall. Adjacent stranding and thickening of the anterior wall musculature, and stranding both superficial and deep to the mesh from the recent hernia repair, suspicious for infection at the level of the mesh. 2. Mild nonspecific hepatosplenomegaly, unchanged. THIS REPORT CONTAINS FINDINGS THAT MAY BE CRITICAL TO PATIENT CARE. The findings were verbally communicated via telephone conference with sonia Whitney at 4:38 AM EDT on 04/09/2019. The findings were acknowledged and understood. She indicated she would relay the findings to Dr. Morales. Electronically signed by: Leyla Bray On 04/09/2019 04:43:58 AM
[2019-04-09] MEDS ORDERED: PIPERACILLIN/TAZOBACTAM SOD 3.375 GM in D5W MINI-BAG PLUS 50 ML IV ONE (05:30)
[2019-04-09] MEDS ORDERED: LIDOCAINE W/EPINEPHRINE 1% 20ML VIAL As Ordered ONE (07:10)
[2019-04-09] MEDS ORDERED: KEFL500C17 PO (07:44)
[2019-04-09] MEDS ORDERED: MIRA3350 PO (07:44)
[2019-04-09 08:08] VITALS: BP 16/71
[2019-04-09] MEDS ORDERED: LIDOCAINE W/EPINEPHRINE 1% 20ML VIAL SC ONE (08:15)
--- NOTE | 2019-04-09 13:48 | CR ---
DATE OF ADMISSION: 04/09/2019 REASON FOR CONSULTATION: Umbilical pain. HISTORY OF PRESENT ILLNESS: Patient is a 38-year-old male, patient of Dr. Fraga, who underwent a robotic incarcerated umbilical hernia repair about two weeks ago. He is presenting with severe umbilical pain and swelling for the past two days. It has been getting progressively worse. In the emergency room (ER), he had some warmth and tenderness around the umbilicus, subjective fevers and slightly elevated white count; otherwise normal vitals and laboratories. A CT revealed a possible abscess formation superior to the mesh and near the umbilicus with a large amount of surrounding stranding and inflammation. Because of that, they were uncomfortable doing an incision and drainage and called me to evaluate. He denies any problems with this over the past few weeks. He has had swelling in the area since the day after surgery, but the pain is new and that has been getting progressively worse for the last 48 hours. No other complaints. PAST MEDICAL HISTORY: 1. Thyroid disease. 2. Hypertension. 3. Gastroesophageal reflux disease (GERD). PAST SURGICAL HISTORY: 1. Umbilical hernia repair done three times now. 2. Appendectomy. 3. Cholecystectomy. SOCIAL HISTORY: Smokes pack a day. Denies drug or alcohol abuse. FAMILY HISTORY: Noncontributory. REVIEW OF SYSTEMS: Per positives stated in the history of present illness (HPI). PHYSICAL EXAMINATION: GENERAL: Alert and oriented times three. No acute distress. VITAL SIGNS: Temperature 98, pulse 61, respirations 18, blood pressure 161/71, pulse oximetry 99% room air. HEENT: Pupils equal, round, react to light and accommodation. HEART: S1, S2. Regular rate and rhythm. LUNGS: Clear to auscultation bilaterally. ABDOMEN: Soft. Slight tenderness to palpation periumbilically. No erythema over the skin. No fluctuation. There is a large swelling periumbilically. No signs of recurrent hernia. EXTREMITIES: Bilateral lower extremity edema. LABORATORY DATA: White count 10.4, hemoglobin 12.5, platelets 203. Potassium 3.8, creatinine 1.04, lactic acid 1.3. IMAGING STUDIES: CT abdomen and pelvis shows large fluid collection consistent with abscess in the subcutaneous tissues in the midline of the anterior abdominal wall. Adjacent stranding and thickening of the anterior wall musculature and stranding, both superficial and deep to the mesh, from the recent hernia repair, suspicious for infection at the level of the mesh. ASSESSMENT AND PLAN: Patient is a 38-year-old male with a large fluid collection periumbilically status post umbilical hernia repair. This could be either inflammation at a seroma versus abscess. Since he has such significant pain in the area, recommendation is to try an aspiration and possibly incision and drainage if it truly is an abscess. Risks and benefits of the procedure are not limited to, but including bleeding, infection, damage to surrounding structures, need for further procedure, were discussed in detail with the patient. Informed consent was obtained and procedure was completed at the bedside in the emergency room. After the procedure, it was found to be just a seroma. Sterile dressing was placed and he was discharged home with antibiotics on a bowel regimen and is already scheduled to see Dr. Yusuf in the office this coming Thursday.
--- NOTE | 2019-04-10 14:27 | RO ---
DATE OF PROCEDURE: 04/09/2019 PREOPERATIVE DIAGNOSIS: Periumbilical fluid collection. POSTOPERATIVE DIAGNOSIS: Postoperative seroma. PROCEDURE: Aspiration of partial fluid collection in the periumbilical area. SURGEON: Dr. Casanova [employer]: None. ANESTHESIA: 5 mL of 1% lidocaine with epinephrine local. COMPLICATIONS: None. INDICATION FOR PROCEDURE: Patient is a 38-year-old male presents with periumbilical pain and swelling status post umbilical hernia repair almost 2 weeks ago. This was thought to be either an abscess versus a seroma. Recommendation was to proceed with aspiration and if aspiration revealed purulent fluid, then we will proceed with incision and drainage. Risks and benefits of the procedure not limited but including bleeding, infection, damage to surrounding structure, need for further procedure were discussed in detail with the patient. Informed consent was obtained and procedure was planned. PROCEDURE: At the bedside in the emergency room (ER), the periumbilical area was sterilely prepped and draped with chlorhexidine and a sterile drape. Once that was completed, 5 mL of 1% lidocaine with epi was injected into skin and subcutaneous tissue overlying seroma around the umbilicus. Next, an 18-gauge needle was placed inside of the fluid collection and aspiration revealed serosanguineous fluid. I removed about 40 mL of this fluid, enough to relieve the pressure and improve his pain significantly. Once that was completed, the needle was removed. The area was cleaned and dried. It was then prepped again with some Betadine and a sterile 4 x 4 and Tegaderm dressing was applied, thus ending procedure. The patient tolerated procedure well. He will be discharged home and will followup with Dr. Yusuf in the office in about 4 days.
== END 2019-04-09 08:23 | disposition home or self-care (01) ==
LOC: M ED 00:24
DX: T85.79XA Infection and inflammatory reaction due to other internal prosthetic devices, implants and grafts, initial encounter (principal); X58.XXXA Exposure to other specified factors, initial encounter; Y92.89 Other specified places as the place of occurrence of the external cause; I10 Essential (primary) hypertension; K21.9 Gastro-esophageal reflux disease without esophagitis; E07.9 Disorder of thyroid, unspecified; E66.8 Other obesity; Z79.899 Other long term (current) drug therapy; F17.210 Nicotine dependence, cigarettes, uncomplicated
CPT/HCPCS: 10160; 74177; 80048; 80076; 82550; 82553; 83605; 83690; 85025; 86850; 86900; 86901; 87040; 93041; 96374; 96375; 99285; J2270; J2543; Q9967

== ENCOUNTER 2019-04-23 23:37 | Inpatient (IN) | payer OTHER ==
[~2019-04-23] VITALS: Ht 165.1 cm; Wt 168.3 kg
[~2019-04-23 23:37] MED LIST changes: +HYDR12CA PO; +KEFL500C17 PO; +MILKSUS7; +MIRA3350 PO
[2019-04-24] MEDS ORDERED: MORPHINE 10 MG/ML 1ML VIAL (J2270) IV ONE
[2019-04-24] MEDS ORDERED: NS 1,000 ML IV ONE
[2019-04-24] MEDS ORDERED: ISOVUE-370 76% 100ML VIAL (Q9967) As Ordered ONE (00:11)
[2019-04-24 00:39] LABS: BASO % 0.5 % (0.0-1.0); EOS # 0.8 10^3/uL (0.0-0.5); EOS % 10.5 % (0.0-3.0); HEMATOCRIT 39.6 % (42.0-52.0); HEMOGLOBIN 12.9 g/dl (13.5-17.5); LYMPH # 2.2 10^3/uL (1.5-5.0); LYMPH % 30.3 % (24.0-44.0); MEAN CORPUSCULAR HEMOGLOBIN 26.7 pg (27.0-33.0); MEAN CORPUSCULAR HGB CONC 32.6 g/dl (32.0-36.5); MEAN CORPUSCULAR VOLUME 81.8 fl (80.0-96.0); MONO # 0.3 10^3/uL (0.0-0.8); MONO % 4.1 % (0.0-5.0); NEUTROPHILS % 54.3 % (36.0-66.0); PLATELET COUNT, AUTOMATED 176 10^3/uL (150-450); RED BLOOD COUNT 4.84 10^6/uL (4.30-6.10); WHITE BLOOD COUNT 7.3 10^3/uL (4.0-10.0)
[2019-04-24 00:41] LABS: INR 0.93; PROTHROMBIN TIME 12.2 SECONDS (11.8-14.0)
[2019-04-24 00:42] LABS: PARTIAL THROMBOPLASTIN TIME 29.5 SECONDS (25.0-38.4)
[2019-04-24 00:45] LABS: BLOOD UREA NITROGEN 16 MG/DL (7-18); CALCIUM LEVEL 8.9 MG/DL (8.5-10.1); CARBON DIOXIDE LEVEL 29 MEQ/L (21-32); CHLORIDE LEVEL 105 MEQ/L (98-107); GLOMERULAR FILTRATION RATE > 60.0 (>60); GLUCOSE, FASTING 102 MG/DL (70-100); POTASSIUM SERUM 3.9 MEQ/L (3.5-5.1); SODIUM LEVEL 140 MEQ/L (136-145)
--- NOTE | 2019-04-24 01:49 | REPVR ---
PROCEDURE INFORMATION: Exam: CT Abdomen And Pelvis With Contrast Exam date and time: 04/24/2019 12:56 AM Clinical history: 38 years old, male; Condition or disease; Abscess; Abscess location: Ventral abdomen; Prior surgery; Surgery date: <1 month; Surgery type: Hernia surgery 03-30-19; Additional info: Evaluate ventral abscess TECHNIQUE: Imaging protocol: Computed tomography of the abdomen and pelvis with intravenous contrast. Radiation optimization: All CT scans at this facility use at least one of these dose optimization techniques: automated exposure control; mA and/or kV adjustment per patient size (includes targeted exams where dose is matched to clinical indication); or iterative reconstruction. Contrast material: ISOVUE 370; Contrast volume: 100 ml; Contrast route: IV; COMPARISON: CT ABD/PEL W/IV CONTRAST ONLY 04/09/2019 2:38 AM FINDINGS: Lungs: The imaged lung bases are clear. Heart: No cardiomegaly. No pericardial effusion. Liver: No liver lesion is seen. The contour of the liver is smooth. The liver is enlarged and measures 17.3 cm in craniocaudal dimension at the level of the right midclavicular line. Gallbladder and bile ducts: There has been a cholecystectomy. There is no fluid collection in the gallbladder fossa. No dilation of the bile ducts is noted. Pancreas: Normal. No ductal dilation. Spleen: No splenic lesion is noted. The spleen is enlarged and measures 15.4 cm. Adrenals: Normal. No mass. Kidneys and ureters: The kidneys are normal in appearance. No renal lesion is identified. No calculi are seen in the kidneys or ureters. There is no hydronephrosis or hydroureter. There are no wedge-shaped areas of low attenuation in the kidneys to suggest pyelonephritis. There is no renal abscess or perinephric fluid collection. Stomach and bowel: There is colonic diverticulosis without evidence for diverticulitis. There is no evidence for a bowel obstruction, colitis, pneumatosis intestinalis, intussusception, volvulus, or perforated viscus. Appendix: The appendix has been removed. Intraperitoneal space: There is mild fat stranding in the greater omentum deep to the ventral hernia repair mesh, which has improved compared to the prior CT on 04/09/2019. No fluid collection. No free air. Retroperitoneal space: Unremarkable. No fluid collection. No mass. Vasculature: The abdominal aorta is patent, normal in caliber, and there is no dissection. The renal arteries, celiac artery, superior mesenteric artery, inferior mesenteric artery, iliac arteries, and common femoral arteries are patent. The portal veins, splenic vein, superior mesenteric vein, inferior mesenteric vein, and renal veins are patent. Lymph nodes: Normal. No enlarged lymph nodes. Bladder: Unremarkable. No calculi or masses are noted in the bladder. Reproductive: The prostate gland and seminal vesicles are unremarkable. Bones/joints: The imaged bony structures are intact. There is no suspicious osteolytic or osteoblastic lesion. Soft tissues: Postoperative changes are noted from a ventral hernia repair. A ventral hernia repair mesh is in place. There is a 11.9 cm x 6.1 cm x 12.1 cm water density fluid collection in the subcutaneous tissues superficial to the ventral hernia repair mesh that is relatively similar in size compared to the prior CT on 04/09/2019. The foci of gas within the fluid collection have resolved since the prior CT on 04/09/2019. IMPRESSION: 1. Postoperative changes from a ventral hernia repair, and there is a 11.9 cm x 6.1 cm x 12.1 cm fluid collection in the subcutaneous tissues in the anterior abdominal wall that is similar in size compared to the prior CT on 04/09/2019 and may represent an abscess or postoperative seroma. 2. Hepatosplenomegaly. 3. Colonic diverticulosis without evidence for diverticulitis. Electronically signed by: Jayce Hurley On 04/24/2019 01:49:20 AM
[2019-04-24] MEDS ORDERED: ENDO5TAB PO (02:41)
[2019-04-24] MEDS ORDERED: PERCOCET 5MG/325MG TAB PO PRN ×2 (03:15)
[2019-04-24] MEDS ORDERED: KETOROLAC 30 MG/ML VIAL (J1885) IV PRN (03:15)
[2019-04-24] MEDS: LR 1,000 ML IV SCH ×2 (03:25→23:02)
[2019-04-24 04:01] VITALS: BP 153/83
[2019-04-24 04:21] VITALS: BP 145/83
[2019-04-24] MEDS: MORPHINE 4 MG/ML 1ML VIAL/SYRINGE (J2270) IV PRN ×3 (04:22→21:06)
[2019-04-24 06:30] VITALS: BP 141/82
[2019-04-24] MEDS: ENOXAPARIN 40 MG/0.4 ML SYRINGE (J1650) SC SCH (08:26)
[2019-04-24] MEDS: SENOKOT S TAB PO SCH ×2 (08:26→20:52)
[2019-04-24] MEDS: FAMOTIDINE 20 MG TAB PO SCH ×2 (08:26→20:52)
--- NOTE | 2019-04-24 10:57 | HPEPDOC ---
General Surgery H&P Date of Admission Apr 24, 2019 Attending Physician: CHERELLE REZA MD History and Physical CHIEF COMPLAINT: abdominal pain HISTORY OF PRESENT ILLNESS: ALLERGIES: Please see below. HOME MEDICATIONS: Please see below. PAST MEDICAL HISTORY: 1. . 2. . PAST SURGICAL HISTORY: 1. . 2. . PERSONAL/SOCIAL HISTORY: [Denies smoking, alcohol use, or recreational drug use]. REVIEW OF SYSTEMS: GENERAL: [Denies chills, fatigue, fever, weight gain and weight loss]. HEENT: [Denies blurred vision and double vision. Denies ear symptoms. Denies hoarseness]. NECK: [Denies any neck pain]. CARDIOVASCULAR: [Denies chest pain and palpitations]. MUSCULOSKELETAL: [Denies arthralgias, back pain and thrombophlebitis]. SKIN: [Denies rash]. NEUROLOGIC: [Denies headache, stroke and transient ischemic attack]. PSYCHIATRIC: [Denies anxiety and depression]. ENDOCRINE: [Denies thyroid disease]. HEMATOLOGY/ONCOLOGY: [Denies any bleeding or clotting disorder]. HEART: [Denies any chest pains, palpitations, paroxysmal dyspnea, orthopnea]. PULMONARY: [Denies chronic cough, dyspnea and wheezing]. GASTROINTESTINAL: [Denies rectal bleeding, family history of colon cancer, constipation, diarrhea, dysphagia, heartburn and jaundice]. GENITOURINARY: [Denies dysuria, frequency, hematuria and nocturia]. ENDOCRINE: [Denies polydipsia, polyphagia, polyuria, heat or cold intolerance]. INFECTIOUS: [Denies any recent upper respiratory tract infection, UTI, need for use of antibiotics]. NUTRITION: [Reports good appetite]. PHYSICAL EXAMINATION: VITAL SIGNS: Please see below. GENERAL APPEARANCE: [Patient seen at bedside, appears comfortable]. [Awake, alert, oriented]. HEENT: [Normocephalic, atraumatic. [place] palpebral conjunctivae. Anicteric sclerae. Lips moist]. CHEST: [No chest wall abnormalities. Normal respiratory motion/effort]. NECK: [Supple. No thyromegaly. No lymphadenopathies]. LUNGS: [Lung sounds are clear to auscultation bilaterally. No wheezing appreciated]. HEART: [No chest wall abnormalities. Heart rate and rhythm are regular with no murmurs]. ABDOMEN: [Abdomen is obese, soft, slightly rounded. No hepatosplenomegaly. No umbilical or groin herniations, nondistended. No noticeable rebound or guarding. No grimacing with palpation. No rebound tenderness. No masses appreciated]. SKIN: [Warm, moist]. EXTREMITIES: [Extremities have no deformities. No edema identified]. NEUROLOGICAL: . ANCILLARIES: . LABORATORY DATA: Please see below. MICROBIOLOGY: Please see below. IMAGING: CT scan abdomen and pelvis 1. Postoperative changes from a ventral hernia repair, and there is a 11.9 cm x 6.1 cm x 12.1 cm fluid collection in the subcutaneous tissues in the anterior abdominal wall that is similar in size compared to the prior CT on 04/09/2019 and may represent an abscess or postoperative seroma. 2. Hepatosplenomegaly. 3. Colonic diverticulosis without evidence for diverticulitis. IMPRESSION AND PLAN: postop umbilical hernia repair postop hematoma abdominal pain will get radiology to place aspirate the hematoma tomorrow. Vital Signs Vital Signs Date Time Temp Pulse Resp B/P (MAP) Pulse Ox O2 Delivery O2 Flow Rate FiO2 04/24/19 06:30 98.0 72 18 141/82 (101) 96 04/23/19 23:38 Room Air I&Os I&O- Last 24 Hours up to 6 AM 04/24/19 06:00 Intake Total 240 ml Output Total 0 ml Balance 240 ml Laboratory Data Labs 24H Laboratory Tests 2 04/24/19 00:12: Immature Granulocyte % (Auto) 0.3, White Blood Count 7.3, Red Blood Count 4.84, Hemoglobin 12.9L, Hematocrit 39.6L, Mean Corpuscular Volume 81.8, Mean Corpuscular Hemoglobin 26.7L, Mean Corpuscular Hemoglobin Concent 32.6, Red Cell Distribution Width 14.8H, Platelet Count 176, Neutrophils (%) (Auto) 54.3, Lymphocytes (%) (Auto) 30.3, Monocytes (%) (Auto) 4.1, Eosinophils (%) (Auto) 10.5H, Basophils (%) (Auto) 0.5, Neutrophils # (Auto) 4.0, Lymphocytes # (Auto) 2.2, Monocytes # (Auto) 0.3, Eosinophils # (Auto) 0.8H, Basophils # (Auto) 0.0, Nucleated Red Blood Cells % (auto) 0.0, Prothrombin Time 12.2, Prothromb Time International Ratio 0.93, Activated Partial Thromboplast Time 29.5, Anion Gap 6L, Glomerular Filtration Rate > 60.0, Lactic Acid Level 0.6, Blood Urea Nitrogen 16, Creatinine 0.90, Sodium Level 140, Potassium Level 3.9, Chloride Level 105, Carbon Dioxide Level 29, Calcium Level 8.9 CBC/BMP Laboratory Tests 04/24/19 00:12 Red Blood Count 4.84, Mean Corpuscular Volume 81.8, Mean Corpuscular Hemoglobin 26.7 L, Mean Corpuscular Hemoglobin Concent 32.6, Red Cell Distribution Width 14.8 H, Neutrophils (%) (Auto) 54.3, Lymphocytes (%) (Auto) 30.3, Monocytes (%) (Auto) 4.1, Eosinophils (%) (Auto) 10.5 H, Basophils (%) (Auto) 0.5, Neutrophils # (Auto) 4.0, Lymphocytes # (Auto) 2.2, Monocytes # (Auto) 0.3, Eosinophils # (Auto) 0.8 H, Basophils # (Auto) 0.0, Calcium Level 8.9 Microbiology Microbiology 04/24/19 Blood Culture, Received Pending Home Medications Scheduled Hydrochlorothiazide (Hydrochlorothiazide) 12.5 Mg Capsule, 12.5 MG PO QPM, (Reported) TAKES AT 1600 Ranitidine Hcl (Zantac) 150 Mg Tablet, 1 TAB PO BID, (Reported) Scheduled PRN Oxycodone HCl/Acetaminophen (Endocet 5-325 Tablet) 1 Each Tablet, 1 TAB PO Q6H PRN for PAIN, (Reported) Allergies Coded Allergies: No Known Allergies (Unverified , 03/22/19) CHERELLE REZA MD Apr 24, 2019 10:57
[2019-04-24 14:00] VITALS: BP 140/80
[2019-04-24] MEDS: ONDANSETRON 4MG/2ML VIAL (J2405) IV PRN ×2 (14:32→21:06)
[2019-04-24] MEDS: hydroCHLOROthiazide 12.5 MG CAPSULE PO SCH (16:10)
[2019-04-24 22:00] VITALS: BP 142/79
[2019-04-25] MEDS: ONDANSETRON 4MG/2ML VIAL (J2405) IV PRN (04:46)
[2019-04-25] MEDS: MORPHINE 4 MG/ML 1ML VIAL/SYRINGE (J2270) IV PRN ×2 (04:47→12:11)
[2019-04-25 06:00] VITALS: BP 138/78
[2019-04-25] MEDS: FAMOTIDINE 20 MG TAB PO SCH ×2 (08:18→20:39)
[2019-04-25] MEDS: SENOKOT S TAB PO SCH ×2 (08:18→20:40)
[2019-04-25 14:00] VITALS: BP 136/78
[2019-04-25] MEDS ORDERED: LIDOCAINE 1% MDV 20ML VIAL As Ordered ONE (15:12)
[2019-04-25] MEDS: LR 1,000 ML IV SCH (16:33)
[2019-04-25] MEDS: hydroCHLOROthiazide 12.5 MG CAPSULE PO SCH (16:33)
--- NOTE | 2019-04-25 18:51 | REP ---
Ultrasound-guided abdominal hematoma drainage The procedure was performed by CHETAN Dunham, under the direct supervision of Dr. Hickman. The risks and benefits of the procedure were explained to the patient and informed consent was obtained both verbally and written. Directly prior to the start of the procedure, a formal timeout was completed in the procedure room. Under ultrasound guidance, the hematoma was localized and the skin was marked. The skin was then prepped and draped in a sterile fashion. 3 ml of 1% lidocaine was used as a local anesthetic. Using ultrasound guidance, a 5-Hebrew multi side-hole skater catheter was inserted using trocar technique. 385 mL of red tinged colored fluid was withdrawn 185 ml was sent to the laboratory for further analysis and the rest was discarded. The patient tolerated the procedure well and there were no immediate complications. After the appropriate monitored convalescence the patient was discharged from the department. Reviewed by CHETAN Maciel 04/25/2019 05:45 P Electronically Signed by Sravan Hickman MD 04/25/2019 06:42 P
[2019-04-25 22:00] VITALS: BP 131/64
[2019-04-26] MEDS: MORPHINE 4 MG/ML 1ML VIAL/SYRINGE (J2270) IV PRN (01:29)
[2019-04-26 06:00] VITALS: BP 146/70
[2019-04-26 06:25] LABS: BASO % 0.3 % (0.0-1.0); EOS # 0.7 10^3/uL (0.0-0.5); EOS % 10.4 % (0.0-3.0); HEMATOCRIT 37.6 % (42.0-52.0); HEMOGLOBIN 11.9 g/dl (13.5-17.5); LYMPH # 1.9 10^3/uL (1.5-5.0); LYMPH % 28.5 % (24.0-44.0); MEAN CORPUSCULAR HEMOGLOBIN 26.2 pg (27.0-33.0); MEAN CORPUSCULAR HGB CONC 31.6 g/dl (32.0-36.5); MEAN CORPUSCULAR VOLUME 82.6 fl (80.0-96.0); MONO # 0.4 10^3/uL (0.0-0.8); MONO % 6.1 % (0.0-5.0); NEUTROPHILS # 3.6 10^3/uL (1.5-8.5); NEUTROPHILS % 54.3 % (36.0-66.0); PLATELET COUNT, AUTOMATED 162 10^3/uL (150-450); RED BLOOD COUNT 4.55 10^6/uL (4.30-6.10); WHITE BLOOD COUNT 6.7 10^3/uL (4.0-10.0)
[2019-04-26 06:50] LABS: BLOOD UREA NITROGEN 13 MG/DL (7-18); C REACTIVE PROTEIN QUANTITATIV 1.99 MG/DL (0.00-0.30); CALCIUM LEVEL 8.4 MG/DL (8.5-10.1); CARBON DIOXIDE LEVEL 28 MEQ/L (21-32); CHLORIDE LEVEL 104 MEQ/L (98-107); CREATININE FOR GFR 0.99 MG/DL (0.70-1.30); GLOMERULAR FILTRATION RATE > 60.0 (>60); GLUCOSE, FASTING 123 MG/DL (70-100); POTASSIUM SERUM 3.7 MEQ/L (3.5-5.1); SODIUM LEVEL 137 MEQ/L (136-145)
[2019-04-26] MEDS: SENOKOT S TAB PO SCH (09:36)
[2019-04-26] MEDS: FAMOTIDINE 20 MG TAB PO SCH (09:36)
[2019-04-26] MEDS: ENOXAPARIN 40 MG/0.4 ML SYRINGE (J1650) SC SCH (09:37)
[2019-04-26] MEDS ORDERED: IBUP-1022 PO (09:37)
--- NOTE | 2019-04-26 09:42 | DS.PDOC ---
Discharge Summary General Date of Admission Apr 24, 2019 at 03:02 Date of Discharge 04/26/2019 Attending Physician: CHERELLE REZA MD Discharge Summary PROCEDURES PERFORMED DURING STAY: Ultrasound-guided aspiration of hematoma/seroma. ADMITTING DIAGNOSES: 1. Morbid obesity 2. Recent laparoscopic recurrent umbilical hernia repair 3. Postoperative hematoma. 4. Abdominal pain DISCHARGE DIAGNOSES: 1. Morbid obesity 2. Recent laparoscopic recurrent umbilical hernia repair 3. Postoperative hematoma status post ultrasound-guided aspiration 4. Abdominal pain COMPLICATIONS/CHIEF COMPLAINT: Postoperative Hematoma. HISTORY OF PRESENT ILLNESS: . HOSPITAL COURSE: Patient was admitted to the hospital for pain control. I managed with a combination of IV Toradol, Percocets and occasional morphine which seems to get him comfortable enough. He underwent ultrasound-guided aspiration of the hematoma. From the reports from etiology day drained 385 MLS of fluid. This was sent for microbiology. She he tolerated the procedure well. Following morning he felt a lot better the swelling around the umbilicus is markedly improved. DISCHARGE MEDICATIONS: Please see below. ALLERGIES: Please see below. PHYSICAL EXAMINATION ON DISCHARGE: VITAL SIGNS: Please see below. GENERAL: HEENT: NECK: CARDIOVASCULAR EXAMINATION: RESPIRATORY EXAMINATION: ABDOMINAL EXAMINATION: Morbidly obese, nondistended abdomen. Laparoscopic port sites are healed. The swelling underneath the umbilical cleft is flattened out. The aspiration site is dry with no leakage. No erythema. Nontender on palpation. EXTREMITIES: SKIN: NEUROLOGICAL EXAMINATION: PSYCHIATRIC EXAMINATION: LABORATORY DATA: Please see below. IMAGING: CT scan abdomen and pelvis PROGNOSIS: Good ACTIVITY: [As tolerated]. DIET: As tolerated DISCHARGE PLAN: Patient will be discharged home. He had a misunderstanding with regards to his pain regimen in the outpatient. He had ibuprofen but he was not taking this after he was seen in the clinic and they prescribed him Percocets. I told him to take the Percocets and between take the ibuprofen. He is allowed to increase activity as tolerated. He will observe based comfortable enough to return to work by next week and will give us a call. He'll follow-up in the clinic next week. DISPOSITION: . DISCHARGE INSTRUCTIONS: 1. As above. 2. Follow-up next week with me for symptom check 3. If comfortable enough to go back to work, can give us a call to get a note for work. ITEMS TO FOLLOWUP ON ON OUTPATIENT: 1. Culture results. So far there is no growth. DISCHARGE CONDITION: [Stable]. TIME SPENT ON DISCHARGE: Greater than 30 minutes. Vital Signs/I&Os Vital Signs Date Time Temp Pulse Resp B/P (MAP) Pulse Ox O2 Delivery O2 Flow Rate FiO2 04/26/19 06:00 98.2 62 18 146/70 (95) 94 04/23/19 23:38 Room Air I&O- Last 24 Hours up to 6 AM 04/26/19 06:00 Intake Total 900 ml Output Total 500 ml Balance 400 ml Laboratory Data Labs 24H Laboratory Tests 2 04/26/19 05:57: Immature Granulocyte % (Auto) 0.4, White Blood Count 6.7, Red Blood Count 4.55, Hemoglobin 11.9L, Hematocrit 37.6L, Mean Corpuscular Volume 82.6, Mean Corpuscular Hemoglobin 26.2L, Mean Corpuscular Hemoglobin Concent 31.6L, Red Cell Distribution Width 15.3H, Platelet Count 162, Neutrophils (%) (Auto) 54.3, Lymphocytes (%) (Auto) 28.5, Monocytes (%) (Auto) 6.1H, Eosinophils (%) (Auto) 10.4H, Basophils (%) (Auto) 0.3, Neutrophils # (Auto) 3.6, Lymphocytes # (Auto) 1.9, Monocytes # (Auto) 0.4, Eosinophils # (Auto) 0.7H, Basophils # (Auto) 0.0, Nucleated Red Blood Cells % (auto) 0.0, Anion Gap 5L, Glomerular Filtration Rate > 60.0, Blood Urea Nitrogen 13, Creatinine 0.99, Sodium Level 137, Potassium Level 3.7, Chloride Level 104, Carbon Dioxide Level 28, Calcium Level 8.4L, C- Reactive Protein, Quantitative 1.99H CBC/BMP Laboratory Tests 04/26/19 05:57 Red Blood Count 4.55, Mean Corpuscular Volume 82.6, Mean Corpuscular Hemoglobin 26.2 L, Mean Corpuscular Hemoglobin Concent 31.6 L, Red Cell Distribution Width 15.3 H, Neutrophils (%) (Auto) 54.3, Lymphocytes (%) (Auto) 28.5, Monocytes (%) (Auto) 6.1 H, Eosinophils (%) (Auto) 10.4 H, Basophils (%) (Auto) 0.3, Neutrophils # (Auto) 3.6, Lymphocytes # (Auto) 1.9, Monocytes # (Auto) 0.4, Eosinophils # (Auto) 0.7 H, Basophils # (Auto) 0.0, Calcium Level 8.4 L Microbiology Microbiology 04/25/19 Gram Stain - Final, Resulted 04/25/19 Abscess Culture, Resulted Pending 04/25/19 Anaerobic Culture, Received Pending 04/24/19 Blood Culture - Preliminary, Resulted No Growth after 48 hours. All Specime... Discharge Medications Scheduled Hydrochlorothiazide (Hydrochlorothiazide) 12.5 Mg Capsule, 12.5 MG PO QPM, (Reported) TAKES AT 1600 Ibuprofen (Ibuprofen) 600 Mg Tablet, 600 MG PO TID for pain with food Ranitidine Hcl (Zantac) 150 Mg Tablet, 1 TAB PO BID, (Reported) Scheduled PRN Oxycodone HCl/Acetaminophen (Endocet 5-325 Tablet) 1 Each Tablet, 1 TAB PO Q6H PRN for PAIN, (Reported) Allergies Coded Allergies: No Known Allergies (Unverified , 03/22/19) CHERELLE REZA MD Apr 26, 2019 09:41
== END 2019-04-26 10:15 | disposition home or self-care (01) | DRG 813 ==
LOC: M ED 23:37 → M ED INP 04-24 03:02 → M MS5PR 04-24 04:08
PROVIDERS: ADMIT Surgery; ATTEND Surgery
PROC: 0W9F3ZZ Drainage of Abdominal Wall, Percutaneous Approach (ICD-10-PCS; principal; 2019-04-25 15:00)
DX: L76.32 Postprocedural hematoma of skin and subcutaneous tissue following other procedure (principal); Z68.44 Body mass index [BMI] 60.0-69.9, adult; E66.01 Morbid (severe) obesity due to excess calories; K57.30 Diverticulosis of large intestine without perforation or abscess without bleeding

== ENCOUNTER 2019-05-01 12:27 | Emergency (ER) | payer OTHER ==
[~2019-05-01] VITALS: Ht 165.1 cm; Wt 162.7 kg
[~2019-05-01 12:27] MED LIST changes: +ENDO5TAB PO; -OMEP40CA2 PO; +OMEP40CA97 PO
[2019-05-01 14:07] LABS: BASO % 0.5 % (0.0-1.0); EOS # 0.7 10^3/uL (0.0-0.5); EOS % 10.7 % (0.0-3.0); HEMATOCRIT 43.5 % (42.0-52.0); HEMOGLOBIN 13.9 g/dl (13.5-17.5); LYMPH # 1.5 10^3/uL (1.5-5.0); LYMPH % 25.2 % (24.0-44.0); MEAN CORPUSCULAR HEMOGLOBIN 26.2 pg (27.0-33.0); MEAN CORPUSCULAR VOLUME 82.1 fl (80.0-96.0); MONO # 0.3 10^3/uL (0.0-0.8); MONO % 4.6 % (0.0-5.0); NEUTROPHILS # 3.6 10^3/uL (1.5-8.5); NEUTROPHILS % 58.7 % (36.0-66.0); PLATELET COUNT, AUTOMATED 147 10^3/uL (150-450); WHITE BLOOD COUNT 6.1 10^3/uL (4.0-10.0)
[2019-05-01] MEDS ORDERED: METOCLOPRAMIDE INJ 10MG/2ML VIAL (J2765) IV ONE (14:15)
[2019-05-01] MEDS ORDERED: diphenhydrAMINE INJ 50MG/ML VIAL (J1200) IV ONE (14:15)
[2019-05-01] MEDS ORDERED: NS 1,000 ML IV ONE (14:15)
[2019-05-01] MEDS ORDERED: KETOROLAC 30 MG/ML VIAL (J1885) IV ONE (14:30)
[2019-05-01 14:39] LABS: ALBUMIN 3.6 GM/DL (3.2-5.2); ALT/SGPT 25 U/L (12-78); AMYLASE 45 U/L (25-115); BILIRUBIN,DIRECT < 0.1 MG/DL (0.0-0.2); BILIRUBIN,TOTAL 0.3 MG/DL (0.2-1.0); BLOOD UREA NITROGEN 12 MG/DL (7-18); CALCIUM LEVEL 8.7 MG/DL (8.5-10.1); CARBON DIOXIDE LEVEL 30 MEQ/L (21-32); CHLORIDE LEVEL 105 MEQ/L (98-107); CREATININE FOR GFR 0.92 MG/DL (0.70-1.30); GLOMERULAR FILTRATION RATE > 60.0 (>60); GLUCOSE, FASTING 97 MG/DL (70-100); LIPASE 106 U/L (73-393); POTASSIUM SERUM 4.2 MEQ/L (3.5-5.1); SODIUM LEVEL 140 MEQ/L (136-145); TOTAL PROTEIN 7.5 GM/DL (6.4-8.2)
[2019-05-01] MEDS ORDERED: dexameTHASONE 4 MG/ML 1ML VIAL (J1100) IV ONE (16:00)
[2019-05-01] MEDS ORDERED: MAG SULF 1GM/100ML (MAG RUN) 1 GM in IV 1 EA IV ONE (16:00)
[2019-05-01 17:32] VITALS: BP 135/69
--- NOTE | 2019-05-02 07:18 | REP ---
ABDOMINAL WALL SONOGRAPHY: HISTORY: Hernia repair 2+ weeks ago. The patient is status post ultrasound-guided seroma aspiration on April 25, 2019. Rule out umbilical/left lower quadrant seroma versus abscess. FINDINGS: Scanning in the periumbilical region demonstrates superficial subcutaneous complex septated collection measuring 9.7 x 3.3 x 9.0 cm consistent with recurrent seroma versus abscess. Scanning over the left lower quadrant incision site demonstrates a 0.7 x 0.7 x 0.7 cm hypoechoic area with a tract to the overlying skin. This is hypoechoic but no definite enhanced through transmission. It is quite small on color Doppler interrogation, IMPRESSION: Recurrent septated complex fluid collection in the subcutaneous fat beneath and surrounding the umbilicus 9.7 x 3.3 x 9.0 cm consistent with recurrent seroma/abscess. 0.7 cm hypoechoic area beneath the left lower quadrant incision with a tract to the overlying skin. Electronically Signed by Sravan Hickman MD 05/02/2019 07:31 A
--- NOTE | 2019-05-04 14:22 | ED PDOC ---
Post-Departure Follow-Up [facility]inley and dr eisenberg faxed formal report of abddarwin lopez for fu Guerrero Esquivel MD May 04, 2019 14:22
== END 2019-05-01 17:41 | disposition home or self-care (01) ==
LOC: M ED 12:27
DX: L76.34 Postprocedural seroma of skin and subcutaneous tissue following other procedure (principal); L98.8 Other specified disorders of the skin and subcutaneous tissue; R51 Headache; R22.0 Localized swelling, mass and lump, head; R79.89 Other specified abnormal findings of blood chemistry; I10 Essential (primary) hypertension; K21.9 Gastro-esophageal reflux disease without esophagitis; G47.33 Obstructive sleep apnea (adult) (pediatric); I25.2 Old myocardial infarction; Z79.899 Other long term (current) drug therapy; F17.210 Nicotine dependence, cigarettes, uncomplicated
CPT/HCPCS: 76705; 80048; 80076; 82150; 83605; 83690; 85025; 87040; 96374; 96375; 99284; J1100; J1200; J1885; J2765; J3475

== ENCOUNTER 2019-05-11 00:28 | Emergency (ER) | payer OTHER ==
[~2019-05-11] VITALS: Ht 165.1 cm; Wt 159.1 kg
[2019-05-11] MEDS ORDERED: GABA-843 PO (00:34)
[2019-05-11 01:13] LABS: BASO % 0.2 % (0.0-1.0); EOS # 0.4 10^3/uL (0.0-0.5); EOS % 4.6 % (0.0-3.0); HEMATOCRIT 42.4 % (42.0-52.0); HEMOGLOBIN 13.5 g/dl (13.5-17.5); LYMPH # 1.6 10^3/uL (1.5-5.0); LYMPH % 16.8 % (24.0-44.0); MEAN CORPUSCULAR HEMOGLOBIN 26.4 pg (27.0-33.0); MEAN CORPUSCULAR HGB CONC 31.8 g/dl (32.0-36.5); MEAN CORPUSCULAR VOLUME 82.8 fl (80.0-96.0); MONO # 0.4 10^3/uL (0.0-0.8); MONO % 4.6 % (0.0-5.0); NEUTROPHILS % 73.2 % (36.0-66.0); PLATELET COUNT, AUTOMATED 160 10^3/uL (150-450); RED BLOOD COUNT 5.12 10^6/uL (4.30-6.10); WHITE BLOOD COUNT 9.6 10^3/uL (4.0-10.0)
[2019-05-11 01:56] LABS: BLOOD UREA NITROGEN 13 MG/DL (7-18); CALCIUM LEVEL 8.6 MG/DL (8.5-10.1); CARBON DIOXIDE LEVEL 30 MEQ/L (21-32); CHLORIDE LEVEL 104 MEQ/L (98-107); CK-MB VALUE MASS 2.6 NG/ML (<3.6); CPK CREATINE PHOSPHOKINASE 626 U/L (39-308); CREATININE FOR GFR 1.08 MG/DL (0.70-1.30); GLOMERULAR FILTRATION RATE > 60.0 (>60); GLUCOSE, FASTING 104 MG/DL (70-100); MB/CK RELATIVE INDEX 0.42 (< OR =4); POTASSIUM SERUM 4.1 MEQ/L (3.5-5.1); SODIUM LEVEL 140 MEQ/L (136-145); TROPONIN I < 0.02 NG/ML (< 0.10)
[2019-05-11] MEDS ORDERED: predniSONE 20 MG TAB PO ONE (02:30)
[2019-05-11] MEDS: IPRATROPIUM 0.5MG/ALBUTEROL 2.5MG INH SOL UD 3ML (DUONEB)(J7620) NEB SCH ×3 (02:40→03:23)
[2019-05-11] MEDS ORDERED: BENZONATATE 100 MG CAP PO ONE (04:00)
[2019-05-11] MEDS ORDERED: TESS100C PO (04:00)
[2019-05-11] MEDS ORDERED: PRED20TA PO (04:00)
[2019-05-11] MEDS ORDERED: ALBUTEROL 90 MCG/ACT 8GM HFA INHALER INH ONE (04:00)
[2019-05-11 04:05] VITALS: BP 155/86
[2019-05-11] MEDS ORDERED: ACETAMINOPHEN TAB 650MG DOSE (2X325MG) As Ordered ONE (04:17)
[2019-05-11] MEDS ORDERED: ACETAMINOPHEN TAB 650MG DOSE (2X325MG) PO ONE (04:30)
--- NOTE | 2019-05-11 08:04 | REP ---
Clinical: Cough and dyspnea . Comparison: 07/13/2018 . Technique: PA and lateral. Findings: The mediastinum and cardiac silhouette are normal. The lung gatica are clear and without acute consolidation, effusion, or pneumothorax. The skeletal structures are intact and normal. Impression: 1. No acute cardiopulmonary process. Electronically Signed by Valdemar Landry MD 05/11/2019 07:56 A
--- NOTE | 2019-05-12 06:56 | ECGEPIP ---
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
== END 2019-05-11 04:21 | disposition home or self-care (01) ==
LOC: M ED 00:28
DX: J20.9 Acute bronchitis, unspecified (principal); B34.9 Viral infection, unspecified; I45.4 Nonspecific intraventricular block; F17.210 Nicotine dependence, cigarettes, uncomplicated; Z79.52 Long term (current) use of systemic steroids; Z79.891 Long term (current) use of opiate analgesic; Z79.899 Other long term (current) drug therapy

== ENCOUNTER → 2019-05-27 | Outpatient (CLI) | payer OTHER ==
[~2019-05-27] MED LIST changes: +GABA-843 PO; +LIDOCAINE 1% MDV 20ML VIAL As Ordered ONE; +TESS100C PO
[2019-05-27 09:23] VITALS: BP 136/77
--- NOTE | 2019-05-27 18:45 | REP ---
ULTRASOUND-GUIDED UMBILICAL SEROMA DRAIN The procedure was performed under the direct supervision of Dr. Hickman. The patient has a history of a 9.7 x 3.3 x 9 cm septated complex fluid collection in the subcutaneous fat beneath and surrounding the umbilicus seen on a previous ultrasound dated 05/01/2019. The risks and benefits of the procedure were explained to the patient and informed consent was obtained. The seroma was localized using ultrasound guidance. The skin was prepped and draped in a sterile fashion. 1% lidocaine was used as a local anesthetic. Using ultrasound guidance an 8-G[place] Skater APDL catheter was inserted using trocar technique. 160 ml of vincent colored fluid was withdrawn and sent to the lab for analysis. The patient tolerated the procedure well and there were no immediate complications. After the appropriate amount of monitored convalescence the patient was discharged from the department. Electronically Signed by CHETAN Forbes 05/27/2019 03:40 P Electronically Signed by Sravan Hickman MD 05/27/2019 06:36 P
== END ==
LOC: M IRPRO 07:53
PROVIDERS: ATTEND Surgery
DX: K42.9 Umbilical hernia without obstruction or gangrene (principal); L76.34 Postprocedural seroma of skin and subcutaneous tissue following other procedure

== ENCOUNTER 2019-07-10 22:08 | Emergency (ER) | payer OTHER ==
[~2019-07-10] VITALS: Ht 165.1 cm; Wt 159.1 kg
[~2019-07-10 22:08] MED LIST changes: -LIDOCAINE 1% MDV 20ML VIAL As Ordered ONE
[2019-07-10] MEDS ORDERED: ASPIRIN 325 MG TAB PO ONE (22:45)
[2019-07-10 22:51] LABS: BASO % 0.4 % (0.0-1.0); EOS # 0.5 10^3/uL (0.0-0.5); EOS % 6.5 % (0.0-3.0); HEMATOCRIT 40.2 % (42.0-52.0); HEMOGLOBIN 13.4 g/dl (13.5-17.5); LYMPH # 1.9 10^3/uL (1.5-5.0); LYMPH % 25.1 % (24.0-44.0); MEAN CORPUSCULAR HEMOGLOBIN 27.8 pg (27.0-33.0); MEAN CORPUSCULAR HGB CONC 33.3 g/dl (32.0-36.5); MEAN CORPUSCULAR VOLUME 83.4 fl (80.0-96.0); MONO # 0.4 10^3/uL (0.0-0.8); MONO % 5.6 % (0.0-5.0); NEUTROPHILS # 4.7 10^3/uL (1.5-8.5); PLATELET COUNT, AUTOMATED 185 10^3/uL (150-450); RED BLOOD COUNT 4.82 10^6/uL (4.30-6.10); WHITE BLOOD COUNT 7.6 10^3/uL (4.0-10.0)
[2019-07-10 23:05] LABS: INR 1.03; PARTIAL THROMBOPLASTIN TIME 30.7 SECONDS (25.0-38.4); PROTHROMBIN TIME 13.2 SECONDS (11.8-14.0)
[2019-07-10 23:12] LABS: BLOOD UREA NITROGEN 13 MG/DL (7-18); CARBON DIOXIDE LEVEL 29 MEQ/L (21-32); CHLORIDE LEVEL 107 MEQ/L (98-107); CK-MB VALUE MASS 5.2 NG/ML (<3.6); CPK CREATINE PHOSPHOKINASE 539 U/L (39-308); CREATININE FOR GFR 0.99 MG/DL (0.70-1.30); GLOMERULAR FILTRATION RATE > 60.0 (>60); GLUCOSE, FASTING 120 MG/DL (70-100); MB/CK RELATIVE INDEX 0.96 (< OR =4); POTASSIUM SERUM 3.6 MEQ/L (3.5-5.1); SODIUM LEVEL 145 MEQ/L (136-145); TROPONIN I < 0.02 NG/ML (< 0.10)
[2019-07-10] MEDS ORDERED: ISOVUE-370 76% 100ML VIAL (Q9967) As Ordered ONE (23:23)
[2019-07-10] MEDS ORDERED: NS 500 ML IV ONE (23:30)
--- NOTE | 2019-07-11 00:01 | REPVR ---
PROCEDURE INFORMATION: Exam: CT Angiography Chest With Contrast Exam date and time: 07/10/2019 11:31 PM Age: 39 years old Clinical indication: Chest pain; Additional info: Cp TECHNIQUE: Imaging protocol: Computed tomographic angiography of the chest with intravenous contrast. 3D rendering: MIP and/or 3D reconstructed images were created by the technologist. Radiation optimization: All CT scans at this facility use at least one of these dose optimization techniques: automated exposure control; mA and/or kV adjustment per patient size (includes targeted exams where dose is matched to clinical indication); or iterative reconstruction. Contrast material: ISOVUE 370; Contrast volume: 75 ml; Contrast route: IV; COMPARISON: CR Chest, 2 view PA, Lat 05/11/2019 12:58 AM FINDINGS: Pulmonary arteries: Suboptimal examination secondary to bolus timing for evaluation of pulmonary embolism. No filling defect in the main pulmonary artery and the major arteries. Aorta: Unremarkable. No aortic aneurysm. No aortic dissection. Lungs: 3 mm nodule in the right apical lung (series 502, image 11). 3 mm groundglass nodule in the right upper lobe (series 502, image 24). 3 mm nodule in the anterior right upper lobe(series 502, image 28). 5 mm nodule in the right upper lobe (502, image 37). Pleural space: Unremarkable. No pneumothorax. No pleural effusion. Heart: Unremarkable. No cardiomegaly. No pericardial effusion. Gallbladder and bile ducts: Cholecystectomy clips. Lymph nodes: Unremarkable. No enlarged lymph nodes. Bones/joints: Unremarkable. No acute fracture. Soft tissues: Unremarkable. IMPRESSION: Multiple nodules in the right lung with the largest measuring 5 mm in the right upper lobe.For patients at low risk (minimal or absent history of smoking and of other known risk factors), no routine follow-up is indicated. For patients at high risk (history of smoking or of other known risk factors), consider optional CT at 12 months. (MacMa, et al., Fleischner Society, 2017) Suboptimal examination secondary to bolus timing for evaluation of pulmonary embolism. No pulmonary embolism in the major pulmonary arteries. Embolism in the smaller segmental and subsegmental arteries could not be evaluated secondary to limitations of the study. Electronically signed by: Connor Shea On 07/11/2019 00:00:45 AM
[2019-07-11] MEDS ORDERED: KETOROLAC 30 MG/ML VIAL (J1885) IV ONE (00:15)
[2019-07-11 05:11] LABS: CK-MB VALUE MASS 4.1 NG/ML (<3.6); CPK CREATINE PHOSPHOKINASE 484 U/L (39-308); MB/CK RELATIVE INDEX 0.85 (< OR =4); TROPONIN I < 0.02 NG/ML (< 0.10)
[2019-07-11 05:38] VITALS: BP 131/61
--- NOTE | 2019-07-11 06:38 | ECGEPIP ---
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
--- NOTE | 2019-07-11 06:41 | ECGEPIP ---
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
== END 2019-07-11 05:48 | disposition home or self-care (01) ==
LOC: M ED 22:08
DX: R07.89 Other chest pain (principal); R91.1 Solitary pulmonary nodule; I10 Essential (primary) hypertension; E66.8 Other obesity; F17.210 Nicotine dependence, cigarettes, uncomplicated
CPT/HCPCS: 71275; 80048; 82550; 82553; 85025; 85610; 85730; 93005; 96361; 96374; 99285; J1885; Q9967

== ENCOUNTER → 2019-07-18 | Outpatient (CLI) | payer OTHER ==
[~2019-07-18] MED LIST changes: +GASTROGRAFIN SOLUTION 30ML (Q9963) As Ordered ONE; +ISOVUE-370 76% 100ML VIAL (Q9967) As Ordered ONE
--- NOTE | 2019-07-18 21:06 | REP ---
Clinical: Postoperative seroma Technique: Axial contrast enhanced images from the lung bases to the pubic symphysis using oral (per protocol) and 100 ml Isovue 370 intravenous contrast material with coronal and sagittal re-formations. Findings: There is a seroma in the periumbilical subcutaneous tissue measuring 7.7 x 5.0 x 7.5 cm. The surrounding subcutaneous fat appears relatively normal and the collection does not breech the peritoneal fascia. Liver, spleen, pancreas, bilateral adrenal glands and kidneys are normal. Evidence of prior cholecystectomy. The enteric system is without obstruction or acute inflammatory process. Pelvis demonstrates normal bladder and age appropriate prostate/seminal vesicles. No ascites. No free air. No adenopathy. Abdominal aorta and vasculature normal. Musculoskeletal structures are intact. Lung bases are clear. Impression: Seroma in the periumbilical subcutaneous tissue. Electronically Signed by Valdemar Landry MD 07/18/2019 08:57 P
== END ==
LOC: M RAD 15:49
PROVIDERS: ATTEND Surgery
DX: K42.9 Umbilical hernia without obstruction or gangrene (principal); L76.34 Postprocedural seroma of skin and subcutaneous tissue following other procedure
CPT/HCPCS: 74177; Q9963; Q9967

== ENCOUNTER → 2019-07-19 | Outpatient (REF) | payer OTHER ==
[~2019-07-19] MED LIST changes: -GASTROGRAFIN SOLUTION 30ML (Q9963) As Ordered ONE; -ISOVUE-370 76% 100ML VIAL (Q9967) As Ordered ONE
== END ==
LOC: M LAB REF 16:56
PROVIDERS: ATTEND Orthopaedic Surgery
DX: K42.9 Umbilical hernia without obstruction or gangrene (principal); L76.34 Postprocedural seroma of skin and subcutaneous tissue following other procedure

== ENCOUNTER → 2019-08-02 | Outpatient (POV) | payer OTHER ==
[~2019-08-02] VITALS: Ht 165.1 cm; Wt 163.6 kg
[2019-08-02 10:40] VITALS: BP 141/83
--- NOTE | 2019-08-03 08:34 | IRCOV ---
[facility] IR Consult Office Visit IR Consult Office Visit DATE: Aug 02, 2019 REASON FOR CONSULTATION/CHIEF COMPLAINT: Abdominal wall seroma status post hernia repair. HISTORY OF PRESENT ILLNESS: 39-year-old nondiabetic male status post umbilical hernia repair operated on 3 times, including 2 times in [place] and last time by Dr. Yusuf. Status post mesh placement in March 2019. Patient has suffered with persistent seroma of the anterior abdominal wall post surgery. This was initially draining 160 mL's of fluid but on most recent aspirations has drained 25 ML's. This causes patient pain and discomfort. Patient has required greater than 4 aspirations of seroma. No growth on cultures. Patient denies fever or chills. Patient is on Percocet and ibuprofen for pain. ALLERGIES: Please see below. HOME MEDICATIONS: Please see below. PAST MEDICAL HISTORY: Hypertension Thyroid disease Gastroesophageal reflux disease PAST SURGICAL HISTORY: Cholecystectomy Appendectomy Umbilical hernia repair FAMILY HISTORY: Noncontributory. SOCIAL HISTORY: Patient occasionally smokes but not regularly. Denies alcohol or drugs. REVIEW OF SYSTEMS: Otherwise negative. PHYSICAL EXAMINATION: VITAL SIGNS: Please see below. GENERAL APPEARANCE: Appears well. Comfortable at rest. HEENT: No scleral icterus. RESPIRATORY: Symmetric breath sounds. CARDIOVASCULAR: Normal rate. ABDOMEN: Protuberant but soft and nontender. Abdominal scars. Mild tenderness in the periumbilical region and a small palpable superficial lump. Nonfluctuant. No redness. No discharge. EXTREMITIES: No edema. NEUROLOGICAL: Alert and oriented. PSYCHIATRIC: Appropriate to circumstance. LABORATORY DATA: 07/10/2019 hemoglobin 13.4 hematocrit 40.2 WBC 7.6 platelets 185 sodium 145 potassium 3.6 BUN 13 creatinine 0.99 fasting glucose 120 Microbiology April 2019 from aspirate of seroma. No bacterial growth. Imaging: I personally reviewed the CT abdomen and pelvis from July 2019. There is an anterior abdominal wall seroma measuring or 4.6 x 8.2 x 7.6 cm craniocaudal. This previously measured 11.5 x 6.4 x 12 cm craniocaudal back in March 2019. No surrounding fat stranding to indicate inflammation. No herniating bowel loops. ASSESSMENT/PLAN: 39-year-old nondiabetic male with abdominal wall seroma status post multiple hernia operations, most recent with mesh placement. I agree pat ient would benefit from sequential sclerotherapy to try to eliminate this cavity. We have scheduled the patient for sequential sessions of sclerotherapy. I spent 30 minutes in consultation with the patient. Thank you for this referral. Cc Dr. Yusuf Allergies Coded Allergies: No Known Allergies (Unverified , 03/22/19) Home Medications Scheduled Hydrochlorothiazide (Hydrochlorothiazide), 12.5 MG PO QPM, (Reported) VS, I&O, 24H, Fishbone Vital Signs/I&O Vital Signs Date Time Temp Pulse Resp B/P (MAP) Pulse Ox O2 Delivery O2 Flow Rate FiO2 08/02/19 10:40 98.0 83 18 141/83 (102) 97 Room Air ALISE BERRIOS MD Aug 03, 2019 08:34
== END ==
LOC: M IRPOV 10:34
PROVIDERS: ATTEND Radiology Diagnostic Radiology
DX: K91.872 Postprocedural seroma of a digestive system organ or structure following a digestive system procedure (principal); I10 Essential (primary) hypertension; K21.9 Gastro-esophageal reflux disease without esophagitis; E07.9 Disorder of thyroid, unspecified; Z72.0 Tobacco use

== ENCOUNTER → 2019-08-08 | Outpatient (CLI) | payer OTHER ==
[~2019-08-08] MED LIST changes: +LIDOCAINE 1% MDV 20ML VIAL As Ordered ONE; +MIDAZOLAM INJ 2 MG/2 ML VIAL (J2250) As Ordered ONE; +ONDANSETRON 4MG/2ML VIAL (J2405) As Ordered ONE; +RANI150T14 PO; +SODIUM TETRADECYL SULFATE(3%)30MG/ML 2ML VIAL (SOTRADECOL) As Ordered ONE; +diphenhydrAMINE INJ 50MG/ML VIAL (J1200) As Ordered ONE; +fentaNYL 100 MCG/2 ML INJECTION (J3010) As Ordered ONE
[2019-08-08 13:15] VITALS: BP 166/96
--- NOTE | 2019-08-08 14:21 | IRHP ---
[facility] IR Pre-Procedure H & P General Date of Service: Aug 08, 2019 Procedure: Same Day Surgery Interval History and Physical I have seen the patient and reviewed last H & P performed within 30 days. There is no significant interval change. History of Present Illness Chief Complaint The patient is a 39-year-old male admitted with a reason for visit of Umbilical Seroma. PRE-PROCEDURE DIAGNOSIS: seroma HEART: normal rate. LUNGS: normal breathing at rest. ASA Classification ASA Classification: II-Mild systemic disease, III-Severe systemic dis. Mallampati Score: II NPO: Yes Problems with prior sedation: No Obstructive Sleep Apnea: Yes Plan moderate sedation Allergies Coded Allergies: No Known Allergies (Unverified , 03/22/19) Home Medications Scheduled Hydrochlorothiazide (Hydrochlorothiazide), 12.5 MG PO QPM, (Reported) VS, I&O, 24H, Fishbone Vital Signs/I&O Vital Signs Date Time Temp Pulse Resp B/P (MAP) Pulse Ox O2 Delivery O2 Flow Rate FiO2 08/08/19 13:15 68 18 98 Room Air 08/08/19 11:00 2 08/08/19 08:09 97.5 ALISE BERRIOS MD Aug 08, 2019 14:21
--- NOTE | 2019-08-08 14:25 | POST-OPPD ---
Postoperative Procedure Note Date Of Procedure: Aug 08, 2019 Time Of Procedure: 14:21 PREOPERATIVE DIAGNOSIS: seroma POSTOPERATIVE DIAGNOSIS: same FINDINGS: abdominal wall seroma PROCEDURE: 60 ml drained. sclerotherapy under ultrasound guidance using Sotradecol. compression dressing applied. SURGEON: Damon ANESTHESIA: mod sed ESTIMATED BLOOD LOSS: < 5 ml COMPLICATIONS: none POSTOPERATIVE CONDITION: stable ALISE BERRIOS MD Aug 08, 2019 14:25
--- NOTE | 2019-08-09 08:44 | REP ---
IR Anterior abdominal wall seroma sclerotherapy under ultrasound guidance. IR abdominal wall seroma aspiration. IR moderate sedation. Ultrasound of the anterior abdominal wall. Clinical information: Status post multiple abdominal surgeries for hernia repair with persistent anterior abdominal wall seroma. Physician: Dr Jose. Procedure: The patient was advised of the benefits, risks and alternatives of the procedure and informed consent was obtained. The time-out was performed with verification of the patient's name, MRN, site of procedure and type of procedure to be performed. The patient was positioned in the supine position on the angiographic table. The site was prepped and draped in the usual sterile fashion. Moderate sedation was performed by the physician including the presence of an independent trained observer who assisted in monitoring the patient's level of consciousness and physiologic status. Following the administration of fentanyl and Versed, the physician spent 45 minutes of face to face time with the patient. A lvn radiograph reveals no gross abnormality. Ultrasound of the anterior abdominal wall demonstrates irregular abdominal wall seroma measuring 6 x 4 cm. The anticipated puncture site was anesthetized with lidocaine. Using ultrasound guidance, the abdominal wall seroma was accessed with a micropuncture needle. An 018 wire was advanced through the needle and the needle was exchanged for a micro sheath. The inner stylet and wire were removed. 60 ml serosanguinous fluid was aspirated from the abdominal wall seroma. This was performed under ultrasound guidance until near complete collapse of the cavity. The micro sheath was removed. A micropuncture needle was used to reaccess the cavity under ultrasound guidance. 8 ml 3% Sotredecol was injected into the abdominal wall seroma under ultrasound guidance. This was left to dwell for 30 minutes. The abdominal wall seroma was re-aspirated under ultrasound guidance. The needle was removed, pressure held and hemostasis achieved. A sterile dressing was applied to the site. A compression dressing was applied to the site. The patient tolerated the procedure well and was returned to the PRU in stable condition. EBL: < 5 ml. Complications: None. Conclusion: 1. Ultrasound of the anterior abdominal wall demonstrates irregular abdominal wall seroma. 2. Successful aspiration of anterior abdominal wall seroma yielding 60 ml serosanguinous fluid. 3. Successful sclerotherapy of anterior abdominal wall seroma. Patient to follow up for sequential treatments. Thank you for this referral. Electronically Signed by Yolande Jose MD 08/09/2019 08:42 A
== END ==
LOC: M IRPRO 07:53
PROVIDERS: ATTEND Radiology Diagnostic Radiology
DX: L76.34 Postprocedural seroma of skin and subcutaneous tissue following other procedure (principal)
CPT/HCPCS: 10160; 20500; 76080; 76942; 99152; 99153; C1894; J1200; J2250; J2405; J3010

== ENCOUNTER → 2019-08-12 | Outpatient (CLI) | payer OTHER ==
[~2019-08-12] MED LIST changes: -ONDANSETRON 4MG/2ML VIAL (J2405) As Ordered ONE
--- NOTE | 2019-08-12 09:55 | IRHP ---
[facility] IR Pre-Procedure H & P General Date of Service: Aug 12, 2019 Procedure: Same Day Surgery Interval History and Physical I have seen the patient and reviewed last H & P performed within 30 days. There is no significant interval change. History of Present Illness Chief Complaint The patient is a 39-year-old male admitted with a reason for visit of Umbilical Seroma. PRE-PROCEDURE DIAGNOSIS: seroma HEART: normal rate. LUNGS: normal breathing at rest. ASA Classification ASA Classification: II-Mild systemic disease Mallampati Score: II NPO: Yes Problems with prior sedation: No Obstructive Sleep Apnea: Yes Plan moderate sedation Allergies Coded Allergies: No Known Allergies (Unverified , 03/22/19) Home Medications Scheduled Hydrochlorothiazide (Hydrochlorothiazide), 12.5 MG PO QPM, (Reported) Ranitidine HCl (Ranitidine HCl), PO BID, (Reported) Scheduled PRN Ibuprofen (Ibuprofen), 600 MG PO Q8HP PRN for PAIN OR FEVER, (Reported) VS, I&O, 24H, Fishbone Vital Signs/I&O Vital Signs Date Time Temp Pulse Resp B/P (MAP) Pulse Ox O2 Delivery O2 Flow Rate FiO2 08/12/19 09:35 50 18 100 Nasal Cannula 2 08/12/19 08:31 97.3 ALISE BERRIOS MD Aug 12, 2019 09:55
--- NOTE | 2019-08-12 10:58 | POST-OPPD ---
Postoperative Procedure Note Date Of Procedure: Aug 12, 2019 Time Of Procedure: 10:57 PREOPERATIVE DIAGNOSIS: seroma POSTOPERATIVE DIAGNOSIS: seroma FINDINGS: seroma abdominal wall PROCEDURE: sclerotherapy 2 of 5 scheduled sessions. SURGEON: naty ANESTHESIA: mod sed ESTIMATED BLOOD LOSS: < 5 ml COMPLICATIONS: none POSTOPERATIVE CONDITION: stable ALISE BERRIOS MD Aug 12, 2019 10:58
--- NOTE | 2019-08-12 11:09 | REP ---
IR Anterior abdominal wall seroma sclerotherapy under ultrasound guidance. IR Abdominal wall seroma aspiration. IR Moderate sedation. Ultrasound of the anterior abdominal wall. Clinical information: Status post multiple abdominal surgeries for hernia repair with persistent anterior abdominal wall seroma. Physician: Dr. Jose. Procedure: The patient was advised of the benefits, risks and alternatives of the procedure and informed consent was obtained. The time-out was performed with verification of the patient's name, MRN, site of procedure and type of procedure to be performed. The patient was positioned in the supine position on the angiographic table. The site was prepped and draped in the usual sterile fashion. Moderate sedation was performed by the physician including the presence of an independent trained observer who assisted in monitoring the patient's level of consciousness and physiologic status. Following the administration of Fentanyl and Versed the physician spent 60 minutes continuous face to face time with the patient. A long term radiograph reveals no gross abnormality. Ultrasound of the anterior abdominal wall demonstrates irregular abdominal wall seroma measuring smaller at 5 x 2 cm. There are increased echogenicities within the seroma indicating sclerosis and fibrosis. The anticipated puncture site was anesthetized with lidocaine. Using ultrasound guidance, the abdominal wall seroma was accessed with a micropuncture needle. 40 ml serosanguinous fluid was aspirated which is less than last time. This was performed under ultrasound guidance until near complete collapse of the cavity. 8 ml of Sotredecol 3% was injected into the abdominal wall seroma under ultrasound guidance. This was left to dwell for 60 minutes. The abdominal wall seroma was re-aspirated under ultrasound guidance. The needle was removed, pressure held and hemostasis achieved. A sterile dressing was applied to the site. Compression dressing was applied. The patient tolerated the procedure well and was returned to PRU in stable condition. EBL: Less than 5 ml. Complications: None. Impression: 1. Ultrasound of the anterior abdominal wall demonstrates interval decrease in size of seroma with increased echogenicity within it indicating fibrosis. 2. Successful aspiration of anterior abdominal wall seroma yielding 40 ml serosanguinous fluid. 3. Successful sclerotherapy of anterior abdominal wall seroma. Patient to return for sequential scheduled sessions. Thank you this referral. Cc Dr. Yusuf Electronically Signed by Yolande Jose MD 08/12/2019 11:08 A
[2019-08-12 12:00] VITALS: BP 132/77
== END ==
LOC: M IRPRO 07:50
PROVIDERS: ATTEND Radiology Diagnostic Radiology
DX: L76.34 Postprocedural seroma of skin and subcutaneous tissue following other procedure (principal)
CPT/HCPCS: 10160; 20500; 76080; 76942; 99152; 99153; C1894; J2250; J3010

== ENCOUNTER → 2019-08-22 | Outpatient (CLI) | payer OTHER ==
[~2019-08-22] MED LIST changes: +ETHANOL ALCOHOL 98% INJ 5ML (DEHYDRATED) As Ordered ONE; +ISOVUE-300 61% 50ML VIAL (Q9967) As Ordered ONE; +ONDANSETRON 4MG/2ML VIAL (J2405) As Ordered ONE
--- NOTE | 2019-08-22 08:54 | IRHP ---
[facility] IR Pre-Procedure H & P General Date of Service: Aug 22, 2019 Procedure: Same Day Surgery Interval History and Physical I have seen the patient and reviewed last H & P performed within 30 days. There is no significant interval change. History of Present Illness Chief Complaint The patient is a 39-year-old male admitted with a reason for visit of Umbilical Seroma Absess Drain. PRE-PROCEDURE DIAGNOSIS: seroma HEART: normal rate. LUNGS: normal breathing at rest. ASA Classification ASA Classification: II-Mild systemic disease Mallampati Score: II NPO: Yes Problems with prior sedation: No Obstructive Sleep Apnea: Yes Plan moderate sedation Allergies Coded Allergies: No Known Allergies (Unverified , 03/22/19) Home Medications Scheduled Hydrochlorothiazide (Hydrochlorothiazide), 12.5 MG PO QPM, (Reported) Ranitidine HCl (Ranitidine HCl), PO BID, (Reported) Scheduled PRN Ibuprofen (Ibuprofen), 600 MG PO Q8HP PRN for PAIN OR FEVER, (Reported) VS, I&O, 24H, Fishbone Vital Signs/I&O Vital Signs Date Time Temp Pulse Resp B/P (MAP) Pulse Ox O2 Delivery O2 Flow Rate FiO2 08/22/19 08:36 98.2 62 16 96 Room Air ALISE BERRIOS MD Aug 22, 2019 08:54
--- NOTE | 2019-08-22 11:01 | POST-OPPD ---
Postoperative Procedure Note Date Of Procedure: Aug 22, 2019 Time Of Procedure: 11:00 PREOPERATIVE DIAGNOSIS: seroma POSTOPERATIVE DIAGNOSIS: same FINDINGS: abdominal wall seroma, smaller with floating debris PROCEDURE: sclerotherapy 3 of 5 planned sessions SURGEON: naty ANESTHESIA: mod sed ESTIMATED BLOOD LOSS: < 5 ml COMPLICATIONS: none POSTOPERATIVE CONDITION: mod sed ALISE BERRIOS MD Aug 22, 2019 11:01
[2019-08-22 11:30] VITALS: BP 132/68
--- NOTE | 2019-08-23 10:28 | REP ---
IR Anterior abdominal wall seroma sclerotherapy under ultrasound guidance. IR Abdominal wall seroma aspiration. IR Moderate sedation. Ultrasound of the anterior abdominal wall. Clinical information: Status post multiple abdominal surgeries for hernia repair with persistent anterior abdominal wall seroma. 3 out of 5 scheduled sclerotherapy sessions. Physician: Dr. Jose. Procedure: The patient was advised of the benefits, risks and alternatives of the procedure and informed consent was obtained. The time-out was performed with verification of the patient's name, MRN, site of procedure and type of procedure to be performed. The patient was positioned in the supine position on the angiographic table. The site was prepped and draped in the usual sterile fashion. Moderate sedation was performed by the physician including the presence of an independent trained observer who assisted in monitoring the patient's level of consciousness and physiologic status. Following the administration of Fentanyl and Versed the physician spent 60 minutes continuous face to face time with the patient. A mastic man radiograph reveals no gross abnormality. Ultrasound of the anterior abdominal wall demonstrates irregular abdominal wall seroma measuring smaller at 7 x 2 cm. There are increased echogenicities within the seroma indicating sclerosis and fibrosis. The anticipated puncture site was anesthetized with lidocaine. Using ultrasound guidance, the abdominal wall seroma was accessed with a micropuncture needle. 40 ml serosanguinous fluid was aspirated. This was performed under ultrasound guidance until near complete collapse of the cavity. 30 ml of absolute alcohol was injected into the abdominal wall seroma under ultrasound guidance. This was left to dwell for 60 minutes. The abdominal wall seroma was re-aspirated under ultrasound guidance. The needle was removed, pressure held and hemostasis achieved. A sterile dressing was applied to the site. Compression dressing was applied. The patient tolerated the procedure well and was returned to PRU in stable condition. EBL: Less than 5 ml. Complications: None. Impression: 1. Ultrasound of the anterior abdominal wall demonstrates interval decrease in size of seroma with increased echogenicity within it indicating fibrosis. 2. Successful aspiration of anterior abdominal wall seroma yielding 40 ml serosanguinous fluid. 3. Successful sclerotherapy of anterior abdominal wall seroma. Patient to return for sequential scheduled sessions. Thank you this referral. Cc Dr. Yusuf Electronically Signed by Yolande Jose MD 08/23/2019 10:26 A
== END ==
LOC: M IRPRO 08:21
PROVIDERS: ATTEND Radiology Diagnostic Radiology
DX: L76.34 Postprocedural seroma of skin and subcutaneous tissue following other procedure (principal)
CPT/HCPCS: 10160; 20500; 76080; 76942; 99152; 99153; C1894; J1200; J2250; J2405; J3010; Q9967

== ENCOUNTER → 2019-08-26 | Outpatient (CLI) | payer OTHER ==
[~2019-08-26] MED LIST changes: -ONDANSETRON 4MG/2ML VIAL (J2405) As Ordered ONE; -SODIUM TETRADECYL SULFATE(3%)30MG/ML 2ML VIAL (SOTRADECOL) As Ordered ONE
[2019-08-26 11:05] VITALS: BP 150/90
--- NOTE | 2019-08-28 14:42 | REP ---
IR Anterior abdominal wall seroma sclerotherapy under ultrasound guidance. IR Abdominal wall seroma aspiration. Ultrasound of the anterior abdominal wall. Clinical information: Status post multiple abdominal surgeries for hernia repair with persistent anterior abdominal wall seroma. 5/5 planned sclerotherapy sessions. Physician: Dr. Jose. Procedure: The patient was advised of the benefits, risks and alternatives of the procedure and informed consent was obtained. The time-out was performed with verification of the patient's name, MRN, site of procedure and type of procedure to be performed. The patient was positioned in the supine position on the angiographic table. The site was prepped and draped in the usual sterile fashion. Moderate sedation was not performed. The physician spent 60 minutes continuous face to face time with the patient. A hand i blocker radiograph reveals no gross abnormality. Ultrasound of the anterior abdominal wall demonstrates irregular abdominal wall seroma measuring smaller at 5 x 2 cm. There are increased echogenicities within the seroma indicating sclerosis and fibrosis. The anticipated puncture site was anesthetized with lidocaine. Using ultrasound guidance, the abdominal wall seroma was accessed with a micropuncture needle. 20 ml serosanguinous fluid was aspirated which is less than last time. This was performed under ultrasound guidance until near complete collapse of the cavity. 20 ml absolute alcohol was injected into the seroma under ultrasound guidance. This was left to dwell for 60 minutes. The abdominal wall seroma was re-aspirated under ultrasound guidance. The needle was removed, pressure held and hemostasis achieved. A sterile dressing was applied to the site. Compression dressing was applied. The patient tolerated the procedure well and was returned to PRU in stable condition. EBL: Less than 5 ml. Complications: None. Impression: 1. Ultrasound of the anterior abdominal wall demonstrates interval decrease in size of seroma with increased echogenicity within it indicating fibrosis. 2. Successful aspiration of anterior abdominal wall seroma yielding 20 ml serosanguinous fluid. 3. Successful sclerotherapy of anterior abdominal wall seroma. This completes the fifth session. Patient to follow up in IR clinic in 1 month. Thank you this referral. Cc Dr. Yusuf Electronically Signed by Yolande Jose MD 08/28/2019 02:40 P
== END ==
LOC: M IRPRO 07:50
PROVIDERS: ATTEND Radiology Diagnostic Radiology
DX: L76.34 Postprocedural seroma of skin and subcutaneous tissue following other procedure (principal)
CPT/HCPCS: 10160; 20500; 76080; 76942; C1894; J2250; J3010

== ENCOUNTER → 2019-10-13 | Outpatient (CLI) | payer OTHER ==
[~2019-10-13] MED LIST changes: -ETHANOL ALCOHOL 98% INJ 5ML (DEHYDRATED) As Ordered ONE; +GASTROGRAFIN SOLUTION 30ML (Q9963) As Ordered ONE; -ISOVUE-300 61% 50ML VIAL (Q9967) As Ordered ONE; +ISOVUE-370 76% 100ML VIAL (Q9967) As Ordered ONE; -LIDOCAINE 1% MDV 20ML VIAL As Ordered ONE; -MIDAZOLAM INJ 2 MG/2 ML VIAL (J2250) As Ordered ONE; -diphenhydrAMINE INJ 50MG/ML VIAL (J1200) As Ordered ONE; -fentaNYL 100 MCG/2 ML INJECTION (J3010) As Ordered ONE
--- NOTE | 2019-10-13 12:33 | REP ---
REASON: Followup postoperative seroma. Patient has a history of umbilical hernia. COMPARISON: 07/18/2019. CONTRAST: 100 mL of Isovue 370. The lung bases are clear and unchanged. The mixed density fluid collection seen in the subcutaneous adipose tissue of the anterior abdominal wall, which previously measured 8.3 x 8.2 x 4.5 cm today measures 7.6 x 7.5 x 4.4 cm as maximal dimensions in each case. The density of the structure is essentially unchanged. The liver, spleen, pancreas, adrenal glands, and kidneys are unchanged. The abdominal aorta and paraaortic regions are unchanged. The bowel loops and their mesenteries are within normal limits. There is no intestinal obstruction. There is no free fluid or free air. CT PELVIS: The bowel loops and their mesenteries are within normal limits. There is no mass or adenopathy. There is no free fluid or free air. Bone window technique through the examination shows no significant change in appearance of the osseous structures. IMPRESSION: Resolving likely postoperative subcutaneous seroma as described above. Correlate clinically. Electronically Signed by Jose Quintana DO 10/13/2019 01:59 P
== END ==
LOC: M RAD 09:11
PROVIDERS: ATTEND Surgery
DX: K42.9 Umbilical hernia without obstruction or gangrene (principal)
CPT/HCPCS: 74177; Q9963; Q9967

== ENCOUNTER 2019-12-11 17:48 | Emergency (ER) | payer OTHER ==
[~2019-12-11] VITALS: Ht 165.1 cm; Wt 174.1 kg
[~2019-12-11 17:48] MED LIST changes: +CYCL-707 PO; -CYCL10TA PO; +GABA-282 PO; -GABA-843 PO; -GASTROGRAFIN SOLUTION 30ML (Q9963) As Ordered ONE; -ISOVUE-370 76% 100ML VIAL (Q9967) As Ordered ONE
[2019-12-11 17:49] VITALS: BP 152/83
[2019-12-11] MEDS ORDERED: PROT1TAB2 PO (18:02)
[2019-12-11] MEDS ORDERED: LIDOCAINE 2% MDV 20ML VIAL SC ONE (18:30)
[2019-12-11] MEDS ORDERED: BOOSTRIX/ADACEL VACCINE (DIPHTH/PERTUSS/ACELL/TETANUS) 0.5ML SYR IM ONE (18:30)
[2020-01-06] MEDS ORDERED: ACET-907 PO (07:48)
[2020-03-02] MEDS ORDERED: HYDR12CA PO (09:38)
[2020-03-02] MEDS ORDERED: GABA600T4 PO (09:38)
[2020-03-02] MEDS ORDERED: AMIT10TA PO (09:38)
[2020-03-02] MEDS ORDERED: MOBI4TAB PO (09:38)
[2020-03-02] MEDS ORDERED: ZOFR8TAB24 PO (09:38)
[2020-07-20] MEDS ORDERED: OMEP40CA97 PO (08:27)
== END 2019-12-11 18:59 | disposition home or self-care (01) ==
LOC: M ED 17:48
DX: S61.211A Laceration without foreign body of left index finger without damage to nail, initial encounter (principal); W26.8XXA Contact with other sharp object(s), not elsewhere classified, initial encounter; Y92.511 Restaurant or cafe as the place of occurrence of the external cause; Y93.89 Activity, other specified; Y99.0 Civilian activity done for income or pay; I10 Essential (primary) hypertension; K21.9 Gastro-esophageal reflux disease without esophagitis; Z87.442 Personal history of urinary calculi; Z79.899 Other long term (current) drug therapy; Z23 Encounter for immunization

== ENCOUNTER 2019-12-20 11:58 | Emergency (ER) | payer OTHER ==
[~2019-12-20] VITALS: Ht 165.1 cm; Wt 173.8 kg
[2019-12-20 11:58] VITALS: BP 139/85
[~2019-12-20 11:58] MED LIST changes: -AUGM875T28 PO
[2019-12-20] MEDS ORDERED: AUGM875T28 PO (12:19)
== END 2019-12-20 12:29 | disposition home or self-care (01) ==
LOC: M ED 11:58
DX: L03.012 Cellulitis of left finger (principal)

== ENCOUNTER → 2019-12-20 | Outpatient (REF) | payer OTHER ==
[~2019-12-20] MED LIST changes: +AUGM875T28 PO; -GABA-282 PO; +GABA-843 PO; +PROT1TAB2
== END ==
LOC: M LAB REF 12:40
PROVIDERS: ATTEND Surgery
DX: L76.34 Postprocedural seroma of skin and subcutaneous tissue following other procedure (principal); K42.9 Umbilical hernia without obstruction or gangrene

== ENCOUNTER 2020-01-20 10:04 | Day surgery (SDC) | payer OTHER ==
[2020-01-20] VITALS (8 sets, daily range): BP systolic 116–146; BP diastolic 58–76; O2SAT 98
[~2020-01-20] VITALS: Ht 165.1 cm; Wt 379.6 kg
[~2020-01-20 10:04] MED LIST changes: +ACET-907 PO; +AUGM875T28 PO; +LR 1,000 ML IV ONE; +ceFAZolin SOD 2 GM in IV 1 EA IV ONE
[2020-01-20] MEDS ORDERED: MIDAZOLAM INJ 2MG/2ML VIAL (J2250 PER 1MG) As Ordered ONE (11:03)
[2020-01-20] MEDS ORDERED: propofoL 200 MG/20 ML VIAL As Ordered ONE ×2 (11:04→11:42)
[2020-01-20] MEDS ORDERED: PHENYLephrine HCL 500 MCG/5 ML (100MCG/ML) SYRINGE (J2370) As Ordered ONE (11:04)
[2020-01-20] MEDS ORDERED: fentaNYL 250 MCG/5 ML INJECTION (J3010) As Ordered ONE (11:04)
[2020-01-20] MEDS ORDERED: ePHEDrine SULFATE 25 MG/5 ML(5MG/ML) SYRINGE As Ordered ONE (11:04)
[2020-01-20] MEDS ORDERED: SUGAMMADEX SODIUM 500 MG/5 ML VIAL (BRIDION) As Ordered ONE (11:05)
[2020-01-20] MEDS ORDERED: dexameTHASONE 4 MG/ML 1ML VIAL (J1100 PER 1MG) As Ordered ONE (11:05)
[2020-01-20] MEDS ORDERED: LIDOCAINE 2% 100MG/5ML SDV (FOR ANES.) As Ordered ONE ×2 (11:05→13:59)
[2020-01-20] MEDS ORDERED: ROCURONIUM BROMIDE 50 MG/5 ML VIAL As Ordered ONE ×2 (11:05→14:10)
[2020-01-20] MEDS ORDERED: ONDANSETRON 4MG/2ML VIAL As Ordered ONE (11:05)
[2020-01-20] MEDS ORDERED: LIDOCAINE 1% SDV 30ML VIAL As Ordered ONE (13:22)
[2020-01-20] MEDS ORDERED: BUPIVACAINE HCL 0.25% 30ML VIAL As Ordered ONE (13:22)
[2020-01-20] MEDS ORDERED: SUCCINYLCHOLINE 100 MG/5 ML SYRINGE (J0330) As Ordered ONE (13:29)
[2020-01-20] MEDS ORDERED: GLYCOPYRROLATE INJ 0.2 MG/ML 2 ML VIAL As Ordered ONE (14:36)
[2020-01-20] MEDS ORDERED: LR 1,000 ML IV SCH (15:15)
[2020-01-20] MEDS ORDERED: fentaNYL 100 MCG/2 ML INJECTION (J3010) IV PRN (15:15)
[2020-01-20] MEDS ORDERED: ONDANSETRON 4MG/2ML VIAL IV PRN ×2 (15:15)
[2020-01-20] MEDS ORDERED: NORCO, ANEXSIA 5/325MG TABLET (HYDROcodone/ACETAMINOPHEN) PO PRN (15:15)
[2020-01-20] MEDS ORDERED: oxyCODONE 5MG TAB PO PRN (15:15)
[2020-01-20] MEDS: LR 1,000 ML IV SCH (17:58)
[2020-01-20] MEDS: KETOROLAC 30 MG/ML 1ML VIAL IV PRN (19:57)
[2020-01-21 00:29] VITALS: O2SAT 95
[2020-01-21 02:00] VITALS: BP 135/68
[2020-01-21] MEDS: LR 1,000 ML IV SCH (04:48)
[2020-01-21 06:00] VITALS: BP 131/70
[2020-01-21] MEDS: KETOROLAC 30 MG/ML 1ML VIAL IV PRN (09:35)
[2020-01-21 10:00] VITALS: BP 134/70
--- NOTE | 2020-01-21 11:34 | ROOPDOC ---
[facility] Report Of Operation Report of Operation DATE OF PROCEDURE: 01/20/20 PREPROCEDURE DIAGNOSES: persistent seroma at umbilical hernia site. POSTPROCEDURE DIAGNOSES: same. PROCEDURE: Excision of seroma capsule. SURGEON: Cherelle Yusuf MD SEWER PIPE OFFBEARER: Maegan Viera NP (provided assistance with retraction, exposure and closure of the incision) ANESTHESIA: general anesthesia. ESTIMATED BLOOD LOSS: Approximately 20 mL. COMPLICATIONS: . REMARKS: . PROCEDURE NOTE: . DESCRIPTION OF PROCEDURE: . CHERELLE YUSUF MD Jan 21, 2020 11:34
[2020-01-21 11:37] VITALS: O2SAT 95
--- NOTE | 2020-01-22 08:49 | IPN ---
DATE: 01/21/2020 HISTORY: The patient is postop day #1 from excision of a chronic seroma of the umbilical area by Dr. Yusuf. He was kept overnight to monitor his oxygen saturations. He has been doing well today with good saturations on room air. He denies significant abdominal pain and has been moving well and tolerating a diet. Vital signs show that he has been afebrile. His pulse is in the 50s and his blood pressure is good. Intake and output shows that he had 2400 in yesterday and had several voids recorded but not measured. He has had 660 mL of urine output recorded today. PHYSICAL EXAMINATION: The patient is sitting up on the bed having some lunch at the time of my visit. He suffers from morbid obesity. The abdomen is obese. He has a dressing over the umbilical area, which shows no evidence of any bleeding and is flat and soft. Abdomen is otherwise benign. IMPRESSION: The patient is doing very well postop day #1 from excision of a periumbilical seroma from prior surgery. He appears ready for discharge. PLAN: The patient will be discharged home today. I will not provide him with any new prescriptions. He can take a diet as tolerated. He should pursue light activity for the next 2 weeks. He can shower [address] Yusuf's instructions. He should followup with Dr. Yusuf in the office on 02/02/2020 at 9 o'clock in the morning. He can call the office sooner if necessary for any problems.
== END 2020-01-21 14:01 | disposition home or self-care (01) ==
LOC: M SDC 10:04 → M MSPAV 15:57 → M SDC 01-21 14:01
PROVIDERS: ATTEND Surgery
DX: L76.34 Postprocedural seroma of skin and subcutaneous tissue following other procedure (principal); I10 Essential (primary) hypertension; K21.9 Gastro-esophageal reflux disease without esophagitis; I25.2 Old myocardial infarction; Z79.899 Other long term (current) drug therapy; F17.218 Nicotine dependence, cigarettes, with other nicotine-induced disorders; R06.83 Snoring; E66.01 Morbid (severe) obesity due to excess calories
CPT/HCPCS: 10140; 87486; 87581; 87633; 87798; 88304; 96361; 96374; 96376; J0330; J0690; J1100; J1885; J2250; J2370; J2405; J3010

== ENCOUNTER 2020-02-02 08:50 | Emergency (ER) | payer OTHER ==
[~2020-02-02] VITALS: Ht 165.1 cm; Wt 174.8 kg
[~2020-02-02 08:50] MED LIST changes: -LR 1,000 ML IV ONE; -PROT1TAB2; +PROT1TAB2 PO; -ceFAZolin SOD 2 GM in IV 1 EA IV ONE
[2020-02-02] MEDS ORDERED: IBUP80TA (08:59)
[2020-02-02] MEDS ORDERED: OXYC1TAB23 (08:59)
[2020-02-02] MEDS ORDERED: SUCR1TAB56 PO (08:59)
[2020-02-02] MEDS ORDERED: CYCLOBENZAPRINE 10MG TABLET PO ONE (09:45)
[2020-02-02] MEDS ORDERED: LIDOCAINE 5% (LIDODERM) PATCH TD ONE (09:45)
[2020-02-02] MEDS ORDERED: ACETAMINOPHEN 500 MG TAB PO ONE (09:45)
--- NOTE | 2020-02-02 10:21 | REP ---
LUMBAR SPINE SERIES: Five views. HISTORY: Low back pain. FINDINGS: Lumbar vertebral body heights are preserved. Alignment is normal. Pedicles and posterior elements are intact. There is no evidence of spondylolysis or spondylolisthesis. Disc spaces are preserved. There is minimal discogenic spurring at L2-3 and L3-4. There are surgical clips in the upper abdomen. Psoas margins are symmetric. Sacrum and SI joints are intact. IMPRESSION: Minimal discogenic spurring. Otherwise negative lumbar spine radiographs. Unreviewed
[2020-02-02] MEDS ORDERED: CYCL7.5T32 PO (11:35)
[2020-02-02] MEDS ORDERED: LIDO5DIS41 TOP (11:35)
[2020-02-02 11:46] VITALS: BP 123/73
[2020-02-02] MEDS ORDERED: **NOTE PATIENT COMMENT** MISC XX ONE (22:00)
[2020-03-02] MEDS ORDERED: MOBI4TAB PO (09:38)
[2020-03-02] MEDS ORDERED: GABA600T4 PO (09:38)
[2020-03-02] MEDS ORDERED: AMIT10TA PO (09:38)
[2020-03-02] MEDS ORDERED: HYDR12CA PO (09:38)
[2020-03-02] MEDS ORDERED: ZOFR8TAB24 PO (09:38)
== END 2020-02-02 11:48 | disposition home or self-care (01) ==
LOC: M ED 08:50
DX: M25.78 Osteophyte, vertebrae (principal); I10 Essential (primary) hypertension; I25.2 Old myocardial infarction; K21.9 Gastro-esophageal reflux disease without esophagitis

== ENCOUNTER → 2020-03-06 | Outpatient (CLI) | payer OTHER ==
[~2020-03-06] MED LIST changes: +AMIT10TA PO; +CYCL7.5T32 PO; +GABA600T4 PO; +IBUP80TA; +LIDO5DIS41 TOP; +LIDOCAINE 1% MDV 20ML VIAL As Ordered ONE; +MOBI4TAB PO; +OXYC1TAB23; +OXYC1TAB23 PO; +SUCR1TAB56 PO; +ZOFR8TAB24 PO
[2020-03-06 12:45] VITALS: BP 143/80
--- NOTE | 2020-04-02 10:46 | REP ---
ULTRASOUND-GUIDED ABDOMINAL SEROMA DRAIN The procedure was performed under the direct supervision of Dr. Hickman. The risks and benefits of the procedure were explained to the patient and informed consent was obtained. The abdominal seroma was localized using ultrasound guidance. The skin was prepped and draped in a sterile fashion. A 1% Lidocaine was used as a local anesthesia. Using ultrasound guidance, an 8-Bulgarian Skater catheter was inserted using trocar technique. There was 140 mL of low viscosity red colored fluid withdrawn and sent to the lab for analysis. The patient tolerated the procedure well and there were no immediate complications. After the appropriate amount of monitored convalescence, the patient was discharged from the department. TOD
== END ==
LOC: M IRPRO 11:44
PROVIDERS: ATTEND Nurse Practitioner
DX: L76.34 Postprocedural seroma of skin and subcutaneous tissue following other procedure (principal); R10.33 Periumbilical pain

== ENCOUNTER 2020-05-16 16:35 | Emergency (ER) | payer OTHER ==
[~2020-05-16] VITALS: Ht 165.1 cm; Wt 172.2 kg
[~2020-05-16 16:35] MED LIST changes: -LIDOCAINE 1% MDV 20ML VIAL As Ordered ONE; -OXYC1TAB23 PO
[2020-05-16] MEDS ORDERED: OXYC1TAB23 (16:42)
[2020-05-16 17:37] LABS: BASO % 0.4 % (0.0-1.0); EOS # 0.3 10^3/uL (0.0-0.5); EOS % 3.8 % (0.0-3.0); HEMATOCRIT 43.5 % (42.0-52.0); HEMOGLOBIN 13.4 g/dl (13.5-17.5); LYMPH # 1.9 10^3/uL (1.5-5.0); LYMPH % 24.6 % (24.0-44.0); MEAN CORPUSCULAR HGB CONC 30.8 g/dl (32.0-36.5); MEAN CORPUSCULAR VOLUME 81.2 fl (80.0-96.0); MONO # 0.3 10^3/uL (0.0-0.8); MONO % 4.2 % (0.0-5.0); NEUTROPHILS # 5.1 10^3/uL (1.5-8.5); NEUTROPHILS % 66.5 % (36.0-66.0); PLATELET COUNT, AUTOMATED 183 10^3/uL (150-450); RED BLOOD COUNT 5.36 10^6/uL (4.30-6.10); WHITE BLOOD COUNT 7.6 10^3/uL (4.0-10.0)
[2020-05-16 18:04] LABS: ALBUMIN 3.5 GM/DL (3.2-5.2); ALT/SGPT 29 U/L (12-78); BILIRUBIN,DIRECT < 0.1 MG/DL (0.0-0.2); BILIRUBIN,TOTAL 0.2 MG/DL (0.2-1.0); LIPASE 76 U/L (73-393); TOTAL PROTEIN 7.8 GM/DL (6.4-8.2)
[2020-05-16] MEDS ORDERED: ISOVUE-370 76% 100ML VIAL As Ordered ONE (18:54)
--- NOTE | 2020-05-16 19:45 | REPVR ---
PROCEDURE INFORMATION: Exam: CT Abdomen And Pelvis With Contrast Exam date and time: 05/16/2020 7:04 PM Age: 39 years old Clinical indication: Abdominal pain; Periumbilical; Additional info: Known umbilical hernia, severe pain and firm TECHNIQUE: Imaging protocol: Computed tomography of the abdomen and pelvis with intravenous contrast. Radiation optimization: All CT scans at this facility use at least one of these dose optimization techniques: automated exposure control; mA and/or kV adjustment per patient size (includes targeted exams where dose is matched to clinical indication); or iterative reconstruction. Contrast material: ISOVUE 370; Contrast volume: 100 ml; Contrast route: INTRAVENOUS (IV); COMPARISON: CT ABD PELVIS WITH CONTRAST 10/13/2019 11:02 AM FINDINGS: Liver: The liver is low in density. Liver measures 22 cm in craniocaudal span. Gallbladder and bile ducts: Surgical clips in the gallbladder fossa. Pancreas: Normal. No ductal dilation. Spleen: Normal. No splenomegaly. Adrenal glands: Normal. No mass. Kidneys and ureters: Normal. No hydronephrosis. Stomach and bowel: Unremarkable. No obstruction. No mucosal thickening. Appendix: No evidence of appendicitis. Intraperitoneal space: Unremarkable. No free air. No significant fluid collection. Vasculature: Unremarkable. No abdominal aortic aneurysm. Lymph nodes: Unremarkable. No enlarged lymph nodes. Urinary bladder: Unremarkable as visualized. Reproductive: Unremarkable as visualized. Bones/joints: Unremarkable. No acute fracture. Soft tissues: Loculated, thick-walled Fluid collection within the anterior abdominal wall superior to and contiguous with the umbilicus measuring 6.1 by 4.1 by 7.4 cm. IMPRESSION: 1. Periumbilical fluid collection within the anterior abdominal wall. The appearance suggests an abscess. 2. Hepatic steatosis. Electronically signed by: Sandra Mattson On 05/16/2020 19:45:16 PM
[2020-05-16] MEDS ORDERED: ONDANSETRON 4MG/2ML VIAL IV ONE (20:00)
[2020-05-16] MEDS ORDERED: MORPHINE 4 MG/ML 1ML VIAL/SYRINGE (J2270) IV ONE (20:00)
[2020-05-16] MEDS ORDERED: OXYC1TAB23 PO (20:18)
[2020-05-16 20:27] VITALS: BP 139/69
--- NOTE | 2020-05-21 12:08 | ED PDOC ---
Post-Departure Follow-Up ct abd/p faxed to dr ramirez for fu Guerrero Esquivel MD May 21, 2020 12:08
== END 2020-05-16 20:29 | disposition home or self-care (01) ==
LOC: M ED 16:35
DX: L76.32 Postprocedural hematoma of skin and subcutaneous tissue following other procedure (principal); K76.0 Fatty (change of) liver, not elsewhere classified; I25.2 Old myocardial infarction; I10 Essential (primary) hypertension; K21.9 Gastro-esophageal reflux disease without esophagitis; F41.1 Generalized anxiety disorder; F17.200 Nicotine dependence, unspecified, uncomplicated
CPT/HCPCS: 74177; 80047; 80076; 83605; 83690; 85025; 96374; 96375; 99284; J2270; J2405; Q9967

== ENCOUNTER → 2020-05-22 | Outpatient (REF) | payer OTHER ==
[~2020-05-22] MED LIST changes: +OXYC1TAB23 PO
== END ==
LOC: M LAB REF 16:28
PROVIDERS: ATTEND Surgery
DX: L76.34 Postprocedural seroma of skin and subcutaneous tissue following other procedure (principal)

== ENCOUNTER → 2020-05-30 | Outpatient (CLI) | payer OTHER ==
[~2020-05-30] MED LIST changes: +LIDOCAINE 1% MDV 20ML VIAL As Ordered ONE; +SODIUM BICARBONATE 8.4% INJ 50MEQ 50 ML VIAL As Ordered ONE
[2020-05-30 09:17] VITALS: BP 147/82
--- NOTE | 2020-05-30 17:53 | REP ---
INDICATION: POSTPROC SEROMA OF SKIN, SUBCU FOLLOWING OTH PROCEDURE The patient has a history of a periumbilical fluid collection within the anterior abdominal wall on a CT dated 05/16/2020. COMPARISON: None. TECHNIQUE: The procedure was performed by CHETAN Dunham, under the direct supervision of Dr. Jimenes The risks and benefits of the procedure were explained to the patient and an informed consent was obtained both verbally and written. Directly prior to the start of the procedure a formal time-out was completed in the procedure room. Using ultrasound guidance the periumbilical fluid collection was localized. The collection appears extremely loculated.. The skin was prepped and draped in a sterile fashion. Ten ML of buffered lidocaine was used as a local anesthetic. Using ultrasound guidance an 8-Thai pigtail catheter was inserted using trocar technique. The catheter was sutured into place, a drainage bag was attached and a sterile dressing was applied around the catheter. FINDINGS: Twenty-four mL of red colored fluid was withdrawn and sent to the laboratory for further analysis. The patient tolerated the procedure well and there were no immediate complications. After the appropriate amount of monitored convalescence, the patient was discharged from the department. IMPRESSION: Ultrasound guided 8 Thai pigtail catheter placement into loculated umbilical seroma. <Electronically signed by Leah Pearson > 05/30/20 [id number] <Electronically signed by Clyde Jimenes > 05/30/20 [id number]
== END ==
LOC: M IRPRO 07:48
PROVIDERS: ATTEND Surgery
DX: L76.34 Postprocedural seroma of skin and subcutaneous tissue following other procedure (principal); R10.84 Generalized abdominal pain

== ENCOUNTER 2020-06-05 20:12 | Emergency (ER) | payer OTHER ==
[~2020-06-05] VITALS: Ht 165.1 cm; Wt 168.2 kg
[~2020-06-05 20:12] MED LIST changes: -LIDOCAINE 1% MDV 20ML VIAL As Ordered ONE; -SODIUM BICARBONATE 8.4% INJ 50MEQ 50 ML VIAL As Ordered ONE
[2020-06-05] MEDS ORDERED: MORPHINE 4 MG/ML 1ML VIAL/SYRINGE (J2270) IV ONE (21:30)
[2020-06-05 21:43] LABS: BASO % 0.3 % (0.0-1.0); EOS # 0.3 10^3/uL (0.0-0.5); EOS % 2.8 % (0.0-3.0); HEMATOCRIT 40.5 % (42.0-52.0); HEMOGLOBIN 12.4 g/dl (13.5-17.5); LYMPH # 2.3 10^3/uL (1.5-5.0); LYMPH % 23.4 % (24.0-44.0); MEAN CORPUSCULAR HEMOGLOBIN 24.8 pg (27.0-33.0); MEAN CORPUSCULAR HGB CONC 30.6 g/dl (32.0-36.5); MEAN CORPUSCULAR VOLUME 80.8 fl (80.0-96.0); MONO # 0.5 10^3/uL (0.0-0.8); MONO % 5.1 % (0.0-5.0); NEUTROPHILS # 6.8 10^3/uL (1.5-8.5); PLATELET COUNT, AUTOMATED 168 10^3/uL (150-450); RED BLOOD COUNT 5.01 10^6/uL (4.30-6.10); WHITE BLOOD COUNT 9.9 10^3/uL (4.0-10.0)
--- NOTE | 2020-06-05 22:14 | REPVR ---
PROCEDURE INFORMATION: Exam: US Abdomen; Limited Exam date and time: 06/05/2020 10:03 PM Age: 39 years old Clinical indication: Abdominal pain; Periumbilical; Prior surgery; Surgery date: 6+ months; Surgery type: Hernia repair x2; Additional info: Umbilical seroma/inc pain/drain not draining TECHNIQUE: Imaging protocol: US abdomen. Real time ultrasound with image documentation. Limited exam focused on the region of clinical interest. COMPARISON: US ABDOMEN LIMITED 02/21/2020 12:00 AM FINDINGS: Soft tissues: Complex multiloculated paraumbilical mass measures 6.3 x 2.7 x 7 cm consistent with a periumbilical hematoma/seroma. Pigtail catheter demonstrated within the seroma. IMPRESSION: Complex multiloculated paraumbilical mass measures 6.3 x 2.7 x 7 cm consistent with a periumbilical hematoma/seroma. Pigtail catheter demonstrated within the seroma. Electronically signed by: Catracho Edmondson On 06/05/2020 22:14:38 PM
[2020-06-05 22:19] LABS: ALBUMIN 3.5 GM/DL (3.2-5.2); ALT/SGPT 29 U/L (12-78); BILIRUBIN,DIRECT < 0.1 MG/DL (0.0-0.2); BILIRUBIN,TOTAL 0.3 MG/DL (0.2-1.0); BLOOD UREA NITROGEN 11 MG/DL (7-18); CALCIUM LEVEL 8.8 MG/DL (8.5-10.1); CARBON DIOXIDE LEVEL 30 MEQ/L (21-32); CHLORIDE LEVEL 103 MEQ/L (98-107); CREATININE FOR GFR 0.96 MG/DL (0.70-1.30); GLOMERULAR FILTRATION RATE > 60.0 (>60); GLUCOSE, FASTING 84 MG/DL (70-100); LIPASE 90 U/L (73-393); POTASSIUM SERUM 4.2 MEQ/L (3.5-5.1); SODIUM LEVEL 140 MEQ/L (136-145); TOTAL PROTEIN 7.5 GM/DL (6.4-8.2)
[2020-06-05 22:42] VITALS: BP 133/63
[2020-06-05] MEDS ORDERED: OXYCODONE/APAP 5MG/325MG(BULK FOR ED) 1 TABLET PO ONE (22:45)
--- NOTE | 2020-06-06 10:14 | ED PDOC ---
Post-Departure Follow-Up abdominal us faxed to dr ziegler for fu Guerrero Esquivel MD Jun 06, 2020 10:14
== END 2020-06-05 23:00 | disposition home or self-care (01) ==
LOC: M ED 20:12
DX: L76.32 Postprocedural hematoma of skin and subcutaneous tissue following other procedure (principal); R06.02 Shortness of breath; K59.00 Constipation, unspecified; I25.2 Old myocardial infarction; I10 Essential (primary) hypertension; G47.33 Obstructive sleep apnea (adult) (pediatric); F17.200 Nicotine dependence, unspecified, uncomplicated; Z79.899 Other long term (current) drug therapy
CPT/HCPCS: 76705; 80048; 80076; 83690; 85025; 96374; 99283; J2270

== ENCOUNTER → 2020-07-26 | Outpatient (REF) | payer OTHER ==
[~2020-07-26] MED LIST changes: +GABA-282 PO; -GABA-843 PO
[2020-07-26 13:21] LABS: BASO % 0.4 % (0.0-1.0); EOS # 0.4 10^3/uL (0.0-0.5); EOS % 5.2 % (0.0-3.0); HEMATOCRIT 43.3 % (42.0-52.0); HEMOGLOBIN 13.2 g/dl (13.5-17.5); LYMPH # 1.7 10^3/uL (1.5-5.0); LYMPH % 23.8 % (24.0-44.0); MEAN CORPUSCULAR HGB CONC 30.5 g/dl (32.0-36.5); MEAN CORPUSCULAR VOLUME 81.9 fl (80.0-96.0); MONO # 0.3 10^3/uL (0.0-0.8); MONO % 4.1 % (0.0-5.0); NEUTROPHILS # 4.8 10^3/uL (1.5-8.5); NEUTROPHILS % 66.1 % (36.0-66.0); PLATELET COUNT, AUTOMATED 170 10^3/uL (150-450); RED BLOOD COUNT 5.29 10^6/uL (4.30-6.10); WHITE BLOOD COUNT 7.3 10^3/uL (4.0-10.0)
== END ==
LOC: M LAB REF 12:17
PROVIDERS: ATTEND Family Medicine Addiction Medicine
DX: D64.9 Anemia, unspecified (principal)

== ENCOUNTER → 2020-07-29 | Outpatient (CLI) | payer OTHER | LOC: M LABSMTC 08:15 | PROVIDERS: ATTEND Anesthesiology | DX: Z01.812 Encounter for preprocedural laboratory examination (principal); Z20.822 Contact with and (suspected) exposure to COVID-19 ==

== ENCOUNTER 2020-08-03 09:00 | Inpatient (IN) | payer OTHER ==
[~2020-08-03] VITALS: Ht 165.1 cm; Wt 168.7 kg
[2020-08-03] VITALS (7 sets, daily range): BP systolic 145–171; BP diastolic 78–93
[~2020-08-03 09:00] MED LIST changes: +CelecoXIB (CeleBREX) 100 MG CAP PO ONE; +LR 1,000 ML IV ONE; +ceFAZolin SOD 1 GM in D5W MINI-BAG PLUS 50 ML IV ONE; +ceFAZolin SOD 2 GM in IV 1 EA IV ONE
--- OUTSIDE RECORDS SUMMARY | 2020-08-03 09:25 | CCD ---
Author Organization Unknown Address [address] [place] [address] Phone [phone] Care Team Providers Care Microbiology Laboratory Manager Name Role Phone Erik David Unavailable Unavailable Allergies None recorded. Medications Name Status Start Date Stop Date ammonium lactate 12 % topical cream APPLY TOPICALLY TO FEET ONCE DAILY Completed 07/13 amoxicillin 500 mg capsule TAKE ONE CAPSULE BY MOUTH EVERY 8 HOURS NEEDED Completed 07/26/2020 amoxicillin 875 mg-potassium clavulanate 125 mg tablet TAKE ONE TABLET BY MOUTH TWICE DAILY Completed chlorhexidine gluconate 0.12 % mouthwash RINSE AND SPIT ONE CAPFUL BY MOUTH THREE TIMES DAILY BEGINNING TOMORROW Completed 07/26/2020 cyclobenzaprine 10 mg tablet TAKE ONE TABLET BY MOUTH EVERY EIGHT HOURS NEEDED Completed 07/26/2020 ibuprofen 600 mg tablet TAKE ONE TABLET BY MOUTH THREE TIMES DAILY WITH FOOD Completed 07/26/2020 ibuprofen 800 mg tablet TAKE ONE TABLET BY MOUTH EVERY 6-8 HOURS WITH FOOD Active Not available lidocaine 4 % topical cream apply thin layer TO affected AREA ON back EVERY 8 HOURS NEEDED DIRECTED Completed 07/26/2020 meloxicam 7.5 mg tablet TAKE ONE TABLET BY MOUTH TWICE DAILY Completed oxycodone-acetaminophen 5 mg-325 mg tabl et TAKE ONE TABLET BY MOUTH EVERY 4 TO 6 HOURS NEEDED FOR PAIN MAX DAILY DOSE THREE TABLETS Completed 07/26/2020 pantoprazole 40 mg tablet,delayed releas e TAKE ONE TABLET BY MOUTH ONCE DAILY Active Not available sucralfate 1 gram tablet TAKE ONE TABLET BY MOUTH TWICE DAILY Completed 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 History Conjunctival Finding Active 12/28/2017 History Pain of Right Eye Active 12/28/2017 History Globe Finding Active 12/28/2017 History Body Mass Index 30+ - Obesity Active 02/17/2018 Hi story Severe Obesity Active 02/17/2018 History Epigastric Hernia Active 02/17/2018 History Finding of Esophagus Active 02/17/2018 History Adjustment Disorder with Depressed Mood Active 03/03/20 18 History Obstructive Sleep Apnea Syndrome Active 03/03/2018 History Disorder of Bone Active 03/16/2018 History Dental Caries on Smooth Surface Penetrating into Pulp Active 06/07/2018 History Hypertensive Disorder Active 2018 History Clinical Finding Active 2018 History Under Immunized Active 2018 History Low Back Pain Active 08/05/2018 History Ingrowing Nail Active 12/09/2018 History Umbilical Hernia Active 03/16/2019 History Dysuria Active 04/05/2019 History Finding of Defecation Active 04/05/2019 History Anemia Active 07/26/2020 Procedures Date Name Performed by 07/26/[address] [address] (Work Place) Notes: gall bladder removed, appendix re moved, hernia repairx2, lump removed from right breast area, hernia repair Results Lab Results Date Name Specimen Result Interpretation Description Value Range Status Address 06/05/2020 CBC W/ Auto Diff Normal White Blood Count 9.9 10 4.0-10.0 10 [facility]: [address] [place] [address] Normal Red Blood Count 5.01 10 4.30-6.10 10 [facility]: [address] [place] [address] Low Hemoglobin 12.4 g/dL 13.5-17.5 g/dL [facility]: [address] [place] [address] Low Hematocrit 40.5 % 42.0-52.0 % [facility]: [address] [place] [address] Normal Mean Corpuscular Volume 80.8 fL 80.0 -96.0 fL [facility]: [address] [place] [address] Low Mean Corpuscular Hemoglobin 24.8 pg 27.0-33.0 pg [facility]: [address] [place] [address] Low Mean Corpuscular HGB Conc 30.6 g/dL 32.0-36.5 g/dL [facility]: [address] [place] [address] High Red Cell Distribution Width 15.3 % 1 1.5-14.5 % [facility]: [address] [place] [address] Normal Platelet Count, Automated 168 10 150 -450 10 [facility]: [address] [facility] High Neutrophils % 68.0 % 36.0-66.0 % [facility]: [address] [facility] Low Lymph % 23.4 % 24.0-44.0 % [facility]: [address] [facility] High Metcalfe % 5.1 % 0.0-5.0 % Final [facility]: [address] [facility] Normal Eos % 2.8 % 0.0-3.0 % [facility]: [address] [facility] Normal Baso % 0.3 % 0.0-1.0 % Final [facility]: [address] [facility] Normal Immature Granulocyte % 0.4 % 0-3.0 % [facility]: [address] [facility] Normal Nucleated Red Blood Cell % 0.0 % 0- 0 % [facility]: [address] [facility] Normal Neutrophils # 6.8 10 1.5-8.[address] [facility]: [address] [facility] Normal Lymph # 2.3 10 1.5-5.0 10 [facility]: [address] [facility] Normal Metcalfe # 0.5 10 0.0-0.8 10 [facility]: [address] [facility] Normal Eos # 0.3 10 0.0-0.5 10 Final [facility]: [address] [facility] Normal Baso # 0.0 10 0.0-0.2 10 [facility]: [address] [facility] 06/05/2020 Hepatic Function Panel, Serum Normal AST/SG OT 21 U/L 7-37 U/L [facility]: [address] [facility] Normal ALT/SGPT 29 U/L 12-78 U/L [facility]: [address] [facility] High Alkaline Phosphatase 132 U/L 45-117 U/L [facility]: [address] [facility] Normal Bilirubin,total 0.3 mg/dL 0.2-1.0 mg /dL [facility]: [address] [facility] Normal Bilirubin,direct < 0.1 mg/dL 0.0-0.2 mg/dL [facility]: [address] [facility] Normal Total Protein 7.5 gm/dL 6.4-8.2 gm/d L [facility]: [address] [facility] Normal Albumin 3.5 gm/dL 3.2-5.2 gm/dL Linda [facility]: [address] [facility] Normal Albumin/globulin Ratio 0.9 [facility]: [facility] 06/05/2020 BMP, Serum or Plasma Normal Glucose, Fastin g 84 mg/dL 70-100 mg/dL [facility]: [address] [facility] Normal Blood Urea Nitrogen 11 mg/dL 7-18 mg /dL [facility]: [address] [facility] Normal Creatinine for GFR 0.96 mg/dL 0.70-1 .30 mg/dL [facility]: [address] [facility] Normal Glomerular Filtration Rate > 60.0 >6 0 [facility]: [address] [facility] Normal Sodium Level 140 mEq/L 136-145 mEq/L [facility]: [address] [facility] Normal Potassium Serum 4.2 mEq/L 3.5-5.1 mE q/L [facility]: [address] [facility] Normal Chloride Level 103 mEq/L 98-107 mEq/ L [facility]: [address] [facility] Normal Carbon Dioxide Level 30 mEq/L 21-32 mEq/L [facility]: [address] [facility] Low Anion Gap 7 mEq/L 8-16 mEq/L [facility]: [address] [facility] Normal Calcium Level 8.8 mg/dL 8.5-10.1 mg/ dL [facility]: [address] [facility] 06/05/2020 Lipase, Serum or Plasma Normal Lipase 90 U/L 7 3-393 U/L [facility]: [address] [facility] 05/30/2020 Abscess Culture and gram Stain ABDOMEN No observation recorded. [facility]: [address] [facility] 05/30/2020 Abscess Culture and gram Stain ABDOMEN No observation recorded. [facility]: [address] [facility] 05/30/2020 Culture, Anaerobic ABSCESS FLUID No observation recorded. [facility]: [address] [place] [address] 05/16/2020 CBC W/ Auto Diff Normal White Blood Count 7.6 10 4.0-10.0 10 [facility]: [address] [place] [address] Normal Red Blood Count 5.36 10 4.30-6.10 10 [facility]: [address] [place] [address] Low Hemoglobin 13.4 g/dL 13.5-17.5 g/dL [facility]: [address] [place] [address] Normal Hematocrit 43.5 % 42.0-52.0 % [facility]: [address] [place] [address] Normal Mean Corpuscular Volume 81.2 fL 80.0 -96.0 fL [facility]: [address] [place] [address] Low Mean Corpuscular Hemoglobin 25.0 pg 27.0-33.0 pg [facility]: [address] [place] [address] Low Mean Corpuscular HGB Conc 30.8 g/dL 32.0-36.5 g/dL [facility]: [address] [facility] High Red Cell Distribution Width 15.2 % 1 1.5-14.5 % [facility]: [address] [place] [address] Normal Platelet Count, Automated 183 10 150 -450 10 [facility]: [address] [facility] High Neutrophils % 66.5 % 36.0-66.0 % [facility]: [address] [facility] Normal Lymph % 24.6 % 24.0-44.0 % [facility]: [address] [facility] Normal Metcalfe % 4.2 % 0.0-5.0 % [facility]: [address] [facility] High Eos % 3.8 % 0.0-3.0 % [facility]: [address] [facility] Normal Baso % 0.4 % 0.0-1.0 % [facility]: [address] [facility] Normal Immature Granulocyte % 0.5 % 0-3.0 % [facility]: [address] [facility] Normal Nucleated Red Blood Cell % 0.0 % 0- 0 % [facility]: [address] [facility] Normal Neutrophils # 5.1 10 1.5-8.5 10 [facility]: [address] [facility] Normal Lymph # 1.9 10 1.5-5.0 10 [facility]: [address] [facility] Normal Metcalfe # 0.3 10 0.0-0.8 10 [facility]: [address] [facility] Normal Eos # 0.3 10 0.0-0.5 10 [facility]: [address] [facility] Normal Baso # 0.0 10 0.0-0.2 10 [facility]: [address] [facility] 05/16/2020 Hepatic Function Panel, Serum Normal AST/SG OT 18 U/L 7-37 U/L [facility]: [address] [facility] Normal ALT/SGPT 29 U/L 12-78 U/L [facility]: [address] [facility] High Alkaline Phosphatase 127 U/L 45-117 U/L [facility]: [address] [facility] Normal Bilirubin,total 0.2 mg/dL 0.2-1.0 mg /dL [facility]: [address] [facility] Normal Bilirubin,direct < 0.1 mg/dL 0.0-0.2 mg/dL [facility]: [address] [facility] Normal Total Protein 7.8 gm/dL 6.4-8.2 gm/d L [facility]: [address] [facility] Normal Albumin 3.5 gm/dL 3.2-5.2 gm/dL Linda l [facility]: [address] [facility] Normal Albumin/globulin Ratio 0.8 [facility]: [address] [facility] 05/16/2020 Lipase, Serum or Plasma Normal Lipase 76 U/L 7 3-393 U/L [facility]: [address] [facility] 05/16/2020 Lactic Acid, Serum or Plasma Normal Lactic Acid Sepsis Protocol 0.7 mmol/L 0.4-2.0 mmol/L [facility]: [address] [place] [address] 05/16/2020 Istat Chem8+ Panel Normal Istat HCT 43.0 % 38. 0-51.0 % [facility]: [address] [facility] Normal Istat Glucose 87 mg/dL 70-105 mg/dL [facility]: [address] [facility] Normal Istat Sodium 139 mEq/L 136-145 mEq/L [facility]: [address] [facility] Normal Istat Potassium 4.4 mEq/L 3.5-5.1 mE q/L [facility]: [address] [place] [address] Normal Istat Ca++ 4.8 mg/dL 4.5-5.3 mg/dL [facility]: [address] [facility] Normal Istat Chloride 100 mEq/L 98-109 mEq/ L [facility]: [address] [facility] High Istat CO2 29.0 mm/L 23.0-27.0 mm/L [facility]: [address] [facility] Normal Istat BUN 12 mg/dL 8-26 mg/dL [facility]: [address] [facility] Normal Istat Creatinine 1.0 mg/dL 0.6-1.3 m g/dL [facility]: [address] [facility] Past Encounters 07/26/2020 Anemia; Umbilical Hernia; Preoperative Cardiovascular Examination David Valencia MD: [address] [place] [address], Ph. Social History Tobacco Smoking Status Current Every Day Smoker Vaccine List Vaccine Type influenza, seasonal, injectable 06/14/20180.5 mL Plan of Care Reminders Provider Appointments None recorded. Lab None recorded. Referral None recorded. Procedures None recorded. Surgeries None recorded. Imaging None recorded. Vitals 07/26/2020 09:00AM [facility] Height Weight BMI Blood Pressure 65 in 374 lbs 2 oz 62.3 kg/m2 132/88 mm[Hg] 01/10/2020 Height Weight Blood Pressure 65 in 380 lbs 136/88 mm[Hg] 12/02/2019 Height Weight Blood Pressure 65 in 380 lbs 3.2 oz 140/87 mm[Hg] 04/14/2019 Blood Pressure 110/77 mm[Hg] 04/05/2019 Height Weight Blood Pressure 65 in 351 lbs 156/99 mm[Hg] 03/16/2019 Height Weight Blood Pressure 65 in 351 lbs 141/98 mm[Hg] 12/09/2018 Height Weight Blood Pressure 65 in 367 lbs 137/90 mm[Hg] 08/05/2018 Height Weight Blood Pressure 65 in 365 lbs 137/87 mm[Hg]
--- OUTSIDE RECORDS SUMMARY | 2020-08-03 09:26 | CCD | Continuity of Care Document ---
Author Bud Lino DPM Organization Unknown Address [address], [address] [place] [address] Phone [phone] Care Team Providers Care Recycling Attendant Name Role Phone Emma Patel LOBSTERMAN AUTM [phone] Gregorio Patelra LOBSTERMAN AUTM [phone] Problems Description No Information Available Social History Type Date Description Comments Sex Unknown ETOH Use Denies alcohol use Tobacco Use Start: Unknown Patient is a current smoker, smo kes every day 1 year hx smoking eventually will quit 1 pack a week Allergies, Adverse Reactions, Alerts Description No Known Drug Allergies Medications Active Medications SIG Qnty Indications Ordering Provide r Date Urea 40% Cream a pply twice a day to callus 85units Gopal Rubio DPM 04/24/2020 Gabapentin 300mg Capsules Unknown Benzonatate 100mg Capsules Joshua Calvo DO Prednisone 20mg Tablets Take Two Tablets By Mouth Once Daily Unknown Amitriptyline HCL 10mg Tablets Take One Tablet By Mouth Every Night AT Bedtime Unknown Gabapentin 600mg Tablets Unknown Ibuprofen 600mg Tablets Unknown Amoxicillin 500mg Capsules Take One Capsule By Mouth Every 8 Hours as Needed Unknown Chlorhexidine Gluconate 0.12% Solu tion Rinse And Spit One Capful By Mouth Three Times Daily Beginning Tomorrow Unknown Meloxicam 7.5mg Tablets Unknown Amoxicillin/Clavulanate Potassium 875-125mg Tablets Unknown Sucralfate 1gm Tablets Unknown Pantoprazole Sodium 40mg Tablets DR Unknown Lidocaine 4% Cream Unknown Ibuprofen 800mg Tablets Aneesh Worthington RPA Cyclobenzaprine HCL 10mg Tablets Aneesh Worthington RPA Oxycodone-Acetaminophen 5-325mg Tablets Unknown Immunizations Description No Information Available Vital Signs Date Vital Result Comment 04/24/2020 10:50am Height 65 inches 5'5" Weight 367.00 lb BP Systolic 137 mmHg BP Diastolic 90 mmHg Heart Rate 77 /min BMI (Body Mass Index) 61.1 kg/m2 01/18/2019 7:28am Height 65 inches 5'5" Weight 367.00 lb BP Systolic 137 mmHg BP Diastolic 90 mmHg Heart Rate 77 /min BMI (Body Mass Index) 61.1 kg/m2 Results Description No Information Available Procedures Description No Information Available Medical Devices Description No Information Available Encounters Type Date Location Provider Dx Diagnosis Office Visit 04/24/2020 3:00p [place] [facility] Gopal Rubio DPM M72.2 Plantar fascial fibromatosis M21.6x9 Other acquired deformities o f unspecified foot L84 Corns and callosities Assessments Date Code Description Provider 04/24/2020 M72.2 Plantar fascial fibromatosis Alivia Rubio DPM 04/24/2020 M21.6x9 Other acquired deformities of un specified foot Gopal Rubio DPM 04/24/2020 L84 Corns and callosities Gopal Rubio DPM Plan of Treatment No Information Available Functional Status Description No Information Available Mental Status Description No Information Available Referrals Description No Information Available
--- OUTSIDE RECORDS SUMMARY | 2020-08-03 09:26 | CCD | Continuity of Care Document ---
Author Author Bud BRAY DPM Organization Unknown Address [address] [place] [address], [address] [place] [address] Phone [phone] Care Team Providers Care School Age Program Teacher Name Role Phone Emma Patel JUAN JOSE AUTM [phone] JorgeEmma ANALYSIS CONSULTANT AUTM [phone] Problems Active Problems Provider Date Plantar fascial fibromatosis Gopal Bray DPM Onset: Pronation Gopal Bray DPM Onset: 05/08/2020 Pronation Gopal Bray DPM Onset: 05/08/2020 Corns and callosities Gopal Bray DPM Onset: 05/08/2020 Social History Type Date Description Comments Sex Unknown ETOH Use Denies alcohol use Tobacco Use Start: Unknown Patient is a current smoker, smo kes every day 1 year hx smoking eventually will quit 1 pack a week Allergies, Adverse Reactions, Alerts Description No Known Drug Allergies Medications Active Medications SIG Qnty Indications Ordering Provide r Date Ammonium Lactate 12% Cream apply to feet daily 140gm Gopal Bray DPM 06/29/2020 Urea 40% Cream a pply twice a day to callus 85units Gopal Bray DPM 04/24/2020 Gabapentin 300mg Capsules Unknown Benzonatate [...] Date Location Provider Dx Diagnosis Office Visit 06/29/2020 1:00p [place] [facility] Gopal Bray DPM M21.6x9 Other acquired deformities of unspecified foot L84 Corns and callosities Office Visit 04/24/2020 3:00p [place] [facility] Gopal Bray DPM M72.2 Plantar fascial fibromatosis M72.2 Plantar fascial fibromatosis M21.6x1 Other acquired deformities o f right foot M21.6x9 Other acquired deformities o f unspecified foot M21.6x2 Other acquired deformities o f left foot L84 Corns and callosities Assessments Date Code Description Provider 06/29/2020 M21.6x9 Other acquired deformities of un specified foot Gopal Bray DPM 06/29/2020 L84 Corns and callosities Gopal Bray DPM 04/24/2020 M72.2 Plantar fascial fibromatosis MICHAEL FrankM 04/24/2020 M72.2 Plantar fascial fibromatosis And delroy Bray DPM 04/24/2020 M21.6x1 Other acquired deformities of ri ght foot Gopal Bray DPM 04/24/2020 M21.6x9 Other acquired deformities of un specified foot Gopal Bray DPM 04/24/2020 M21.6x2 Other acquired deformities of le ft foot Gopal Bray DPM 04/24/2020 L84 Corns and callosities Gopal Bray DPM Plan of Treatment Future Appointment(s):* 09/07/2020 1:00 pm - Gopal Bray DPM at [facility] Functional Status Description No Information Available Mental Status Description No Information Available Referrals Description No Information Available
--- OUTSIDE RECORDS SUMMARY | 2020-08-03 09:26 | CCD | Continuity of Care Document ---
Author Author Bud BRAY DPM Organization Unknown Address [address] [place] [address], [address] [place] [address] Phone [phone] Care Team Providers Care Fire Extinguisher Repairer Name Role Phone Gregorio Patelra INGRAM AUTM [phone] JorgeEmma POLICE ACADEMY INSTRUCTOR AUTM [phone] Problems Active Problems Provider Date Plantar fascial [...] Provider Dx Diagnosis Office Visit 04/24/2020 3:00p [place] [facility] Gopal Bray DPM M72.2 Plantar fascial fibromatosis M72.2 Plantar fascial fibromatosis M21.6x1 Other acquired deformities o f right foot M21.6x9 Other acquired deformities o f unspecified foot M21.6x2 Other acquired deformities o f left foot L84 Corns and callosities Assessments Date Code Description Provider 04/24/2020 M72.2 Plantar fascial fibromatosis And delroy Bray DPM 04/24/2020 M72.2 Plantar fascial fibromatosis And delroy [...] 1:00 pm - Gopal Bray DPM at [facility] Functional Status Description No Information Available Mental Status Description No Information Available Referrals Description No Information Available
--- OUTSIDE RECORDS SUMMARY | 2020-08-03 09:26 | CCD | Continuity of Care Document ---
Author Author Bud YUSUF MD Organization Unknown Address [address] [facility] [address] [place] [address] Phone [phone] Care Team Providers Care Medicaid Service Coordinator Name Role Phone Theodora Lau AUTM [phone] Emma Patel AUTM [phone] David Valencia M.D. AUTM [phone] AUTM Unavailable Douglas Krishnamurthy M.D. AUTM [phone] Problems Active Problems Provider Date Essential hypertension William Yusuf MD Onset: 019 Social History Type Date Description Comments Sex Unknown ETOH Use Sociable Recreational Drug Use Denies Drug Use Tobacco Use Start: Unknown 1 PPD Allergies, Adverse Reactions, Alerts Description No Known Drug Allergies Medications Active Medications SIG Qnty Indications Ordering Provide r Date Percocet 5-325mg Tablets 1 tab by mouth tid prn pain 20tabs William Yusuf MD 0 Abdominal Binder/Elastic/3X-Large Elast 3X Misc use as directed for abdominal support 1units L76.34 Chr is GUNNAR Joe 03/13/2020 Carafate 1gm Tablets o ne gm twice a day 60tabs R11.0 William Yusuf MD 10/04/2019 Meloxicam 7.5mg Tablets one tablet two tme daily 60tabs William Yusuf MD [address] 1 by mouth every day 30tabs William Yusuf MD 9 Neurontin 600mg Tablets 1 bid 60tabs William Yusuf MD 06/13/2019 Amitriptyline HCL 10mg Tablets take once daily every night at bedtime 30tabs William Yusuf MD 06/02/2019 Zofran 8mg Tablets 1 b y mouth twice a day 14tabs R10.33 Romeo Joe NP 04/12/2019 History Medications Percocet 5-325mg Tablets 1 by mouth every 4 hours prn severe pain. Take OTC ibuprofen/tylenol for mild to moderate pain 20tabs William Yusuf MD 01/18/2020 - 12/2019 Immunizations Description No Information Available Vital Signs Date Vital Result Comment 05/22/2020 2:50pm Height 65 inches 5'5" Weight 379.38 lb BMI (Body Mass Index) 63.1 kg/m2 [place] Body Weight 136 lb Weight 172.084 kg 04/17/2020 10:46am BP Systolic 127 mmHg BP Diastolic 85 mmHg Heart Rate 72 /min Height 65 inches 5'5" Weight 384.38 lb BMI (Body Mass Index) 64.0 kg/m2 [place] Body Weight 136 lb Weight 174.352 kg Results Test Acquired Date Facility Test Result H/L Range Note Abscess Culture And Gram Stain 03/06/2020 [facility] Main Lab [address] [place] [address] [phone] Gram Stain (SEE NOTE) Normal 1 Abscess Culture <SEE NOTE> 2 Laboratory test finding 01/20/2020 [facility] Main Lab [address] [place] [address] [phone] Pathology Request For Service (SEE NOTE) 3 Respiratory Panel 01/19/2020 [facility] nter Main Lab [address] [place] [address] [phone] Respiratory Panel This respiratory <SEE NOTE> 4 Laboratory test finding 12/20/2019 [facility] [place] [address] [phone] Culture Other And Gram Stain Use as Last <pending> Wound Culture And Gram St 12/20/2019 [facility] [place] [address] [phone] Gram Stain (SEE NOTE) Normal 5 Wound Culture FULL REPORT IN L <SEE NOTE> Normal 6 1 FEW RBCS NO ORGANISMS SEEN 2 If aerobic or anaerobic growth is detected within the next 7-21 days, an addendum will follow. . . FULL REPORT IN LAB NOTES (eCW and Medent). NO GROWTH AEROBICALLY 3 FINAL DIAGNOSIS Seroma capsule, resection: Irregular saccular portions of fibrous tissue, consistent with seroma capsule. 01/24/2020 - 1104 CLINICAL DIAGNOSIS Excise seroma capsule 01/23/2020 - 1215 GROSS DIAGNOSIS Received in formalin labeled "seroma capsule, requisition states umbilical" are irregular portions of saccular juarez-yellow fibrofatty membranous soft tissue measuring approximately 7 x 5 x 2.5 cm. Sectioning revealed no gross mass. Represented in one. -YZ 01/23/2020 - 1215 Signed Carmencita Munoz M.D. 01/24/2020 1141 4 This respiratory PCR panel d etects Influenza A H1, H3 and 2009 H1 viruses, Influenza B virus, Resp iratory Syncytial Virus, Human metapneumovirus, Parainfluenza virus 1, 2, 3 and 4, Adenovirus, Rhinovirus/Enterovirus, Coronavirus HKU1, NL63, OC43, 229E and SARS-CoV-2 (COVID 19), Bordetella pertussis, Bordetella parapertussis, Mycoplasma pneumoniae and Chlamydia pneumoniae. NEGATIVE by MULTIPLEXED NUCLEIC ACID PCR SARS-CoV-2 (COVID 19) NEGATIVE - SARS-CoV-2 (COVID19) 5 NO CELLS SEEN NO ORGANISMS SEEN 6 FULL REPORT IN LAB NOTES (eC W and Medent). Procedures Date Code Description Status 01/20/2020 17809 Excise Benign Lesion > 4CM Jin nk/Arm/Leg Completed Medical Devices Description No Information Available Encounters Type Date Location Provider Dx Diagnosis Office Visit 03/13/2020 10:30a [facility] Romeo hollins NP L76.34 Postproc seroma of skin, subcu following other procedure Office Visit 02/13/2020 10:00a [facility] Romeo hollins NP L76.34 Postproc seroma of skin, subcu following other procedure R10.33 Periumbilical pain Office Visit 02/02/2020 9:00a [facility] Romeo hollins NP L76.34 Postproc seroma of skin, subcu following other procedure Office Visit 12/20/2019 11:20a [facility] Gabo Yusuf MD K42.9 Umbilical hernia without obs truction or gangrene L76.34 Postproc seroma of skin, sub cu following other procedure Assessments Date Code Description Provider 03/13/2020 L76.34 Postprocedural serom a of skin and subcutaneous tissue following other procedure Romeo Joe NP 02/28/2020 L76.34 Postprocedural serom a of skin and subcutaneous tissue following other procedure Romeo Joe NP 02/28/2020 R10.33 Periumbilical pain Romeo Joe NP 02/13/2020 L76.34 Postprocedural serom a of skin and subcutaneous tissue following other procedure Romeo Joe NP 02/13/2020 R10.33 Periumbilical pain Romeo Joe NP 02/02/2020 L76.34 Postprocedural serom a of skin and subcutaneous tissue following other procedure Romeo Joe NP 01/20/2020 L76.34 Postprocedural serom a of skin and subcutaneous tissue following other procedure William Yusuf MD 12/20/2019 K42.9 Umbilical hernia without obstruc tion or gangrene William Yusuf MD 12/20/2019 L76.34 Postprocedural serom a of skin and subcutaneous tissue following other procedure William Yusuf MD Plan of Treatment 03/13/2020 - Romeo Joe NP* L76.34 Postprocedural seroma of skin and subcutaneous tissue following other procedure* New Medication:* Abdominal Binder/Elastic/3X-Large Elast 3X - use as directed for abdominal support * Comments:* Seroma was aspirated, no evidence of return. Will send order to [facility] for an abdominal binder for support. Follow up as needed. Functional Status Description No Information Available Mental Status Description No Information Available Referrals Description No Information Available
--- OUTSIDE RECORDS SUMMARY | 2020-08-03 09:26 | CCD | Continuity of Care Document ---
Author Author Bud YUSUF MD Organization Unknown Address [address] [facility] [address] [place] [address] Phone [phone] Care Team Providers Care Dev Manager Name Role Phone Theodora Lau AUTM [phone] Emma Patel AUTM David Valencia M.D. AUTM [phone] AUTM Unavailable Douglas Krishnamurthy M.D. AUTM [phone] Problems Active Problems Provider Date Essential hypertension William Yusuf MD Onset: 019 Social History Type Date Description Comments Sex Unknown ETOH Use Sociable Recreational Drug Use Denies Drug Use Tobacco Use Start: Unknown 1 PPD Allergies, Adverse Reactions, Alerts Description No Known Drug Allergies Medications Active Medications SIG Qnty Indications Ordering Provide r Date Abdominal Binder/Elastic/3X-Large Elast 3X Misc use as [...] 04/12/2019 History Medications Percocet 5-325mg Tablets 1 tab by mouth tid prn pain 20ilan Yusuf MD 0 - 06/13/2020 Percocet 5-325mg Tablets 1 by mouth every 4 hours prn severe pain. Take OTC ibuprofen/tylenol for mild to moderate pain 20ilan Yusuf MD 01/18/2020 - 12/2019 Immunizations Description No Information Available Vital Signs Date Vital Result Comment 06/26/2020 8:37am BP Systolic 151 mmHg BP Diastolic 84 mmHg Heart Rate 74 /min Height 65 inches 5'5" Weight 381.12 lb BMI (Body Mass Index) 63.4 kg/m2 [place] Body Weight 136 lb Weight 172.878 kg BSA (Body Surface Area) 2.60 m2 06/13/2020 9:49am BP Systolic 138 mmHg BP Diastolic 64 mmHg Height 65 inches 5'5" Weight 377.00 lb BMI (Body Mass Index) 62.7 kg/m2 [place] Body Weight 136 lb Weight 171.007 kg BSA (Body Surface Area) 2.59 m2 Results Test Acquired Date Facility Test Result H/L Range Note Abscess Culture And Gram Stain 05/30/2020 [facility] Main Lab [address] [place] [address] [phone] Gram Stain (SEE NOTE) Normal 1 Abscess Culture <SEE NOTE> 2 Laboratory test finding 05/30/2020 [facility] Main Lab [address] [place] [address] [phone] Anaerobic Culture <SEE NOTE> 3 Wound Culture And Gram St 05/22/2020 [facility] Main Lab [address] [place] [address] [phone] Gram Stain (SEE NOTE) Normal 4 Wound Culture <SEE NOTE> 5 Abscess Culture And Gram Stain 03/06/2020 [facility] Main Lab [address] [place] [address] [phone] Gram Stain (SEE NOTE) Normal 6 Abscess Culture <SEE NOTE> 7 Laboratory test finding 01/20/2020 [facility] Main Lab [address] [place] [address] [phone] Pathology Request For Service (SEE NOTE) 8 Respiratory Panel 01/19/2020 [facility] nter Main Lab [address] [place] [address] [phone] Respiratory Panel This respiratory <SEE NOTE> 9 1 MANY RBCS NO ORGANISMS SEEN 2 If aerobic or anaerobic growth is detected within the next 7-21 days, an addendum will follow. . . FULL REPORT IN LAB NOTES (eCW and Medent). NO GROWTH AEROBICALLY 3 If anaerobic or aerobic growth is detected within the next 7-21 days, an addendum will follow. . . FULL REPORT IN LAB NOTES (eCW and Medent). NO GROWTH ANAEROBICALLY 4 FEW WBCS FEW RBCS NO ORGANISMS SEEN 5 If aerobic or anaerobic growth is detected within the next 7-21 days, an addendum will follow. . . FULL REPORT IN LAB NOTES (eCW and Medent). NO GROWTH AEROBICALLY 6 FEW RBCS NO ORGANISMS SEEN 7 If aerobic or anaerobic growth is detected within the next 7-21 days, an addendum will follow. . . FULL REPORT IN LAB NOTES (eCW and Medent). NO GROWTH AEROBICALLY 8 FINAL DIAGNOSIS Seroma capsule, resection: Irregular saccular portions of fibrous tissue, consistent with seroma capsule. 01/24/2020 - 1104 CLINICAL DIAGNOSIS Excise seroma capsule 01/23/2020 - 5 GROSS DIAGNOSIS Received in formalin labeled "seroma capsule, requisition states umbilical" are irregular portions of saccular juarez-yellow fibrofatty membranous soft tissue measuring approximately 7 x 5 x 2.5 cm. Sectioning revealed no gross mass. Represented in one. -YZ 01/23/2020 - 1215 Signed Carmencita Munoz M.D. 01/24/2020 1141 9 This respiratory PCR panel d etects Influenza A H1, H3 and 2009 H1 viruses, Influenza B virus, Resp iratory Syncytial Virus, Human metapneumovirus, Parainfluenza virus 1, 2, 3 and 4, Adenovirus, Rhinovirus/Enterovirus, Coronavirus HKU1, NL63, OC43, 229E and SARS-CoV-2 (COVID 19), Bordetella pertussis, Bordetella parapertussis, Mycoplasma pneumoniae and Chlamydia pneumoniae. NEGATIVE by MULTIPLEXED NUCLEIC ACID PCR SARS-CoV-2 (COVID 19) NEGATIVE - SARS-CoV-2 (COVID19) Procedures Date Code Description Status 01/20/2020 64886 Excise Benign Lesion > 4CM Jin nk/Arm/Leg Completed Medical Devices Description No Information Available Encounters Type Date Location Provider Dx Diagnosis Office Visit 06/13/2020 10:00a [facility] Romeo hollins NP L76.34 Postproc seroma of skin, subcu following other procedure Z48.89 Encounter for other specifie d surgical aftercare Office Visit 03/13/2020 10:30a [facility] Romeo hollins NP L76.34 Postproc seroma of skin, subcu following other procedure Office Visit 02/28/2020 1:00p [facility] Romeo hollins NP L76.34 Postproc seroma of skin, subcu following other procedure R10.33 Periumbilical pain Office Visit 02/13/2020 10:00a [facility] Romeo hollins NP L76.34 Postproc seroma of skin, subcu following other procedure R10.33 Periumbilical pain Office Visit 02/02/2020 9:00a [facility] Romeo hollins NP L76.34 Postproc seroma of skin, subcu following other procedure Assessments Date Code Description Provider 06/26/2020 L76.34 Postprocedural serom a of skin and subcutaneous tissue following other procedure William Yusuf MD 06/26/2020 R10.33 Periumbilical pain William Hutson MD 06/26/2020 E66.01 Morbid (severe) obesity due to e xcess calories William Yusuf MD 06/13/2020 L76.34 Postprocedural serom a of skin and subcutaneous tissue following other procedure Romeo Joe NP 06/13/2020 Z48.89 Encounter for other specified santizo rgical aftercare Romeo Joe NP 03/13/2020 L76.34 Postprocedural serom a of skin [...] procedure William Yusuf MD Plan of Treatment No Information Available Functional Status Description No Information Available Mental Status Description No Information Available Referrals Description No Information Available
--- OUTSIDE RECORDS SUMMARY | 2020-08-03 09:26 | CCD | Continuity of Care Document ---
Author Bud Lino DPM Organization Unknown Address [address] [place] [address], [address] [place] [address] Phone [phone] Care Team Providers Care Blasting Machine Operator Name Role Phone Emma Patel PUBLIC ADMINISTRATION PROFESSOR AUTM [phone] Jorge Emma PUBLIC ADMINISTRATION PROFESSOR AUTM [phone] Problems Active Problems Provider Date Plantar fascial fibromatosis Gopal Rubio DPM Onset: Pronation Gopal Rubio DPM Onset: 05/08/2020 Pronation Gopal Rubio DPM Onset: 05/08/2020 Corns and callosities Gopal Rubio DPM Onset: 05/08/2020 Social History Type Date [...] Provider Dx Diagnosis Office Visit 04/24/2020 3:00p [place] [facility] Gopal Rubio DPM M72.2 Plantar fascial fibromatosis M72.2 Plantar fascial fibromatosis M21.6x1 Other acquired deformities o f right foot M21.6x9 Other acquired deformities o f unspecified foot M21.6x2 Other acquired deformities o f left foot L84 Corns and callosities Assessments Date Code Description Provider 04/24/2020 M72.2 Plantar fascial fibromatosis And delroy Rubio DPM 04/24/2020 M72.2 Plantar fascial fibromatosis And delroy Rubio DPM 04/24/2020 M21.6x1 Other acquired deformities of ri ght foot Gopal Rubio DPM 04/24/2020 M21.6x9 Other acquired deformities of un specified foot Gopal Rubio DPM 04/24/2020 M21.6x2 Other acquired deformities of le ft foot Gopal Rubio DPM 04/24/2020 L84 Corns and callosities Gopal Rubio DPM Plan of Treatment Future Appointment(s):* 06/19/2020 2:45 pm - Gopal Rubio DPM at [facility] Functional Status Description No Information Available Mental Status Description No Information Available Referrals Description No Information Available
--- OUTSIDE RECORDS SUMMARY | 2020-08-03 09:26 | CCD | Continuity of Care Document ---
Author Bud Lino DPM Organization Unknown Address [address] [place] [address], [address] [place] [address] Phone [phone] Care Team Providers Care Cafeteria Food Server Name Role Phone Emma Patel TURRET LATHE OPERATOR AUTM [phone] Jorge Emma TURRET LATHE OPERATOR AUTM [phone] Problems Active Problems Provider Date Plantar fascial [...] Provider Dx Diagnosis Office Visit 04/24/2020 3:00p [place] [facility] Gopal Rubio DPM M72.2 Plantar fascial [...] 2:45 pm - Gopal Rubio DPM at [facility] Functional Status Description No Information Available Mental Status Description No Information Available Referrals Description No Information Available
--- OUTSIDE RECORDS SUMMARY | 2020-08-03 09:26 | CCD | Continuity of Care Document ---
Author Author Bud YUSUF MD Organization Unknown Address [address] [facility] [address] [place] [address] Phone [phone] Care Team Providers Care Power Distribution Engineer Name Role Phone Theodora Lau AUTM [phone] Emma Patel AUTM David Valencia M.D. AUTM [phone] AUTM Unavailable Douglas Krishnamurthy M.D. AUTM [phone] Problems Active Problems Provider Date Essential hypertension [...] pain 20tabs William Yusuf MD 01/18/2020 - 1012/2019 Immunizations Description No Information Available Vital Signs Date Vital Result Comment 06/05/2020 9:56am BP Systolic 130 mmHg BP Diastolic 87 mmHg Height 65 inches 5'5" Weight 378.25 lb BMI (Body Mass Index) 62.9 kg/m2 [place] Body Weight 136 lb Weight 171.574 kg BSA (Body Surface Area) 2.59 m2 05/22/2020 2:50pm Height 65 inches 5'5" Weight 379.38 lb BMI (Body Mass Index) 63.1 kg/m2 [place] Body Weight 136 lb Weight 172.084 kg BSA (Body Surface Area) 2.60 m2 Results Test Acquired Date Facility Test Result H/L Range Note Abscess Culture And Gram Stain 05/30/2020 [facility] Main Lab [address] [place] [address] [phone] Gram Stain (SEE NOTE) Normal 1 Abscess Culture <SEE NOTE> 2 Laboratory test finding 05/30/2020 [facility] Main Lab [address] [place] [address] [phone] Anaerobic Culture <SEE NOTE> 3 Wound Culture And Gram St 05/22/2020 [facility] Main Lab [address] [place] [address] [phone] Gram Stain (SEE NOTE) Normal 4 Wound Culture <SEE NOTE> 5 Abscess Culture And Gram Stain 03/06/2020 [facility] Main Lab [address] [place] [address] [phone] Gram Stain (SEE NOTE) Normal 6 Abscess Culture <SEE NOTE> 7 Laboratory test finding 01/20/2020 [facility] Main Lab [address] [place] [address] [phone] Pathology Request For Service (SEE NOTE) 8 Respiratory Panel 01/19/2020 [facility] nter Main Lab [address] [place] [address] [phone] Respiratory Panel This respiratory <SEE NOTE> 9 Laboratory test finding 12/20/2019 [facility] [place] [address] [phone] Culture Other And Gram Stain Use as Last <pending> Wound Culture And Gram St 12/20/2019 [facility] [address] [phone] Gram Stain (SEE NOTE) Normal 10 Wound Culture FULL REPORT IN L <SEE NOTE> Normal 11 1 MANY RBCS NO ORGANISMS SEEN 2 [...] CLINICAL DIAGNOSIS Excise seroma capsule 01/23/2020 - 1214 GROSS DIAGNOSIS Received in formalin labeled "seroma capsule, requisition states umbilical" are irregular portions of saccular juarez-yellow fibrofatty membranous soft tissue measuring approximately 7 x 5 x 2.5 cm. Sectioning revealed no gross mass. Represented in one. -YZ 01/23/2020 - 5 Signed Carmencita Munoz M.D. 01/24/2020 1141 9 [...] SARS-CoV-2 (COVID 19) NEGATIVE - SARS-CoV-2 (COVID19) 10 NO CELLS SEEN NO ORGANISMS SEEN 11 FULL REPORT IN LAB NOTES (eC W and Medent). Procedures Date Code Description Status 01/20/2020 00082 Excise Benign Lesion > 4CM Jin nk/Arm/Leg Completed Medical Devices Description No Information Available Encounters Type Date Location Provider Dx Diagnosis Office Visit 03/13/2020 10:30a [facility] Romeo hollins NP L76.34 Postproc seroma of skin, subcu following other procedure Office Visit 02/13/2020 10:00a [facility] Romeo hollins NP L76.34 Postproc seroma of skin, subcu following other procedure R10.33 Periumbilical pain Office Visit 02/02/2020 9:00a [facility] Romeo hollins NP L76.34 Postproc seroma of skin, subcu following other procedure Office Visit 12/20/2019 11:20a [facility] Gabo Yusuf MD K42.9 Umbilical [...] evidence of return. Will send order to [facility]' for an abdominal binder for support. Follow up as needed. Functional Status Description No Information Available Mental Status Description No Information Available Referrals Description No Information Available
--- OUTSIDE RECORDS SUMMARY | 2020-08-03 09:27 | CCD ---
Author Author [facility] Address Unknown Phone Unavailable Care Team Providers Care Quoter Name Role Phone Ermelinda REZA MD Unavailable Unavailable Ermelinda REZA MD Unavailable Unavailable Ermelinda REZA MD Unavailable Unavailable Ermelinda REZA MD Unavailable Unavailable Ermelinda REZA MD Unavailable Unavailable Ermelinda REZA MD Unavailable Unavailable Ermelinda REZA MD Unavailable Unavailable Ermelinda REZA MD Unavailable Unavailable Ermelinda REZA MD Unavailable Unavailable Ermelinda REZA MD Unavailable Unavailable Ermelinda REZA MD Unavailable Unavailable Ermelinda REZA MD Unavailable Unavailable Ermelinda REZA MD Unavailable Unavailable Ermelinda REZA MD Unavailable Unavailable Ermelinda REZA MD Unavailable Unavailable Ermelinda REZA MD Unavailable Unavailable Ermelinda REZA MD Unavailable Unavailable Ermelinda REZA MD Unavailable Unavailable Ermelinda REZA MD Unavailable Unavailable Ermelinda REZA MD Unavailable Unavailable Ermelinda REZA MD Unavailable Unavailable Ermelinda REZA MD Unavailable Unavailable Ermelinda REZA MD Unavailable Unavailable Ermelinda REZA MD Unavailable Unavailable Ermelinda REZA MD Unavailable Unavailable Ermelinda REZA MD Unavailable Unavailable Ermelinda REZA MD Unavailable Unavailable Ermelinda REZA MD Unavailable Unavailable Ermelinda REZA MD Unavailable Unavailable Ermelinda REZA MD Unavailable Unavailable Ermelinda REZA MD Unavailable Unavailable Ermelinda REZA MD Unavailable Unavailable Ermelinda REZA MD Unavailable Unavailable Marina BARY DPM Unavailable Unavailable Marina BRAY DPM Unavailable Unavailable Marina BRAY DPM Unavailable Unavailable Marina BRAY DPM Unavailable Unavailable Marina BRAY DPM Unavailable Unavailable Marina BRAY DPM Unavailable Unavailable Marina BRAY DPM Unavailable Unavailable KATARINA R POLO DPM Unavailable Unavailable Marina BRAY DPM Unavailable Unavailable Marina BRAY DPM Unavailable Unavailable Marina BRAY DPM Unavailable Unavailable Marina BRAY DPM Unavailable Unavailable Marina BRAY DPM Unavailable Unavailable Marina BRAY DPM Unavailable Unavailable Marina BRAY DPM Unavailable Unavailable Marina BRAY DPM Unavailable Unavailable Marina BRAY DPM Unavailable Unavailable Marina BRAY DPM Unavailable Unavailable MAJAK, R POLO DPM Unavailable Unavailable MAJAK, R POLO DPM Unavailable Unavailable MAJAK, R POLO DPM Unavailable Unavailable MAJAK, R POLO DPM Unavailable Unavailable MAJAK, R POLO DPM Unavailable Unavailable MAJAK, R POLO DPM Unavailable Unavailable MAJAK, R POLO DPM Unavailable Unavailable MAJAK, R POLO DPM Unavailable Unavailable MAJAK, R POLO DPM Unavailable Unavailable MAJAK, R POLO DPM Unavailable Unavailable MAJAK, R POLO DPM Unavailable Unavailable MAJAK, R POLO DPM Unavailable Unavailable Cynthia Valencia MD Unavailable Unavailable Cynthia Valencia MD Unavailable Unavailable Cynthia Valencia MD Unavailable Unavailable Cynthia Valencia MD Unavailable Unavailable Cynthia Valencia MD Unavailable Unavailable Cynthia Valencia MD Unavailable Unavailable Cynthia Valencia MD Unavailable Unavailable Cynthia Valencia MD Unavailable Unavailable Cynthia Valencia MD Unavailable Unavailable Cynthia Valencia MD Unavailable Unavailable Cynthia Valencia MD Unavailable Unavailable Cynthia Valencia MD Unavailable Unavailable Cynthia Valencia MD Unavailable Unavailable Cynthia Valencia MD Unavailable Unavailable Cynthia Valencia MD Unavailable Unavailable Cynthia Valencia MD Unavailable Unavailable Cynthia Valencia MD Unavailable Unavailable Cynthia Valencia MD Unavailable Unavailable Cynthia Valencia MD Unavailable Unavailable Cynthia Valencia MD Unavailable Unavailable Cynthia Valencia MD Unavailable Unavailable Cynthia Valencia MD Unavailable Unavailable Cynthia Valencia MD Unavailable Unavailable Cynthia Valencia MD Unavailable Unavailable Cynthia Valencia MD Unavailable Unavailable Cynthia Valencia MD Unavailable Unavailable Cynthia Valencia MD Unavailable Unavailable Cynthia Valencia MD Unavailable Unavailable Cynthia Valencia MD Unavailable Unavailable Cynthia Valencia MD Unavailable Unavailable Cynthia Valencia MD Unavailable Unavailable Cynthia Valencia MD Unavailable Unavailable Cynthia Valencia MD Unavailable Unavailable Cynthia Valencia MD Unavailable Unavailable yCnthia Valencia MD Unavailable Unavailable Cynthia Valencia MD Unavailable Unavailable Cynthia Valencia MD Unavailable Unavailable Cynthia Valencia MD Unavailable Unavailable Cynthia Valencia MD Unavailable Unavailable Cynthia Valencia MD Unavailable Unavailable Cynthia Valencia MD Unavailable Unavailable Cynthia Valencia MD Unavailable Unavailable Cynthia Valencia MD Unavailable Unavailable Cynthia Valencia MD Unavailable Unavailable Cynthia Valencia MD Unavailable Unavailable Cynthia Valencia MD Unavailable Unavailable Cynthia Valencia MD Unavailable Unavailable Cynthia Valencia MD Unavailable Unavailable Cynthia Valencia MD Unavailable Unavailable Cynthia Valencia MD Unavailable Unavailable Cynthia Valencia MD Unavailable Unavailable Cynthia Valencia MD Unavailable Unavailable Cynthia Valencia MD Unavailable Unavailable Cynthia Valencia MD Unavailable Unavailable Cynthia Valencia MD Unavailable Unavailable Cynthia Valencia MD Unavailable Unavailable Cynthia Valencia MD Unavailable Unavailable Cynthia Valencia MD Unavailable Unavailable Cynthia Valencia MD Unavailable Unavailable Cynthia Valencia MD Unavailable Unavailable Cynthia Valencia MD Unavailable Unavailable Cynthia Valencia MD Unavailable Unavailable Cyntiha Valencia MD Unavailable Unavailable Cynthia Valencia MD Unavailable Unavailable Cynthia Valencia MD Unavailable Unavailable Cynthia Valencia MD Unavailable Unavailable Cynthia Valencia MD Unavailable Unavailable Cynthia Valencia MD Unavailable Unavailable Cynthia Valencia MD Unavailable Unavailable Cynthia Valencia MD Unavailable Unavailable Cynthia Valencia MD Unavailable Unavailable Cynthia Valencia MD Unavailable Unavailable Cynthia Valencia MD Unavailable Unavailable Cynthia Valencia MD Unavailable Unavailable Cynthia Valencia MD Unavailable Unavailable Cynthia Valencia MD Unavailable Unavailable Cynthia Valencia MD Unavailable Unavailable Cynthia Valencia MD Unavailable Unavailable Cynthia Valencia MD Unavailable Unavailable Cynthia Valencia MD Unavailable Unavailable Cynthia Valencia MD Unavailable Unavailable Cynthia Valencia MD Unavailable Unavailable Cynthia Valencia MD Unavailable Unavailable Cynthia Valencia MD Unavailable Unavailable Cynthia Valencia MD Unavailable Unavailable yCnthia Valencia MD Unavailable Unavailable Cynthia Valencia MD Unavailable Unavailable Cynthia Valencia MD Unavailable Unavailable Cynthia Valencia MD Unavailable Unavailable [place], Olimpia Romeo Unavailable Unavailable [place], Olimpia Romeo Unavailable Unavailable Heath, Olimpia Romeo Unavailable Unavailable Heath, Olimpia Romeo Unavailable Unavailable Heath, Olimpia Romeo Unavailable Unavailable [place], Olimpia Romeo Unavailable Unavailable Heath, Olimpia Romeo Unavailable Unavailable [place], Olimpia Romeo Unavailable Unavailable Cynthia Valencia MD Unavailable Unavailable Cynthia Valencia MD Unavailable Unavailable Cynthia Valencia MD Unavailable Unavailable Cynthia Valencia MD Unavailable Unavailable Cynthia Valencia MD Unavailable Unavailable Cynthia Valencia MD Unavailable Unavailable Cynthia Valencia MD Unavailable Unavailable Cynthia Valencia MD Unavailable Unavailable Cynthia Valencia MD Unavailable Unavailable Cynthia Valencia MD Unavailable Unavailable Cynthia Valencia MD Unavailable Unavailable Cynthia Valencia MD Unavailable Unavailable Cynthia Valencia MD Unavailable Unavailable Cynthia Valencia MD Unavailable Unavailable Cynthia Valencia MD Unavailable Unavailable Cynthia Valencia MD Unavailable Unavailable Cynthia Valencia MD Unavailable Unavailable Cynthia Valencia MD Unavailable Unavailable Cynthia Valencia MD Unavailable Unavailable Cynthia Valencia MD Unavailable Unavailable Cynthia Valencia MD Unavailable Unavailable Cynthia Valencia MD Unavailable Unavailable Cynthia Valencia MD Unavailable Unavailable Cynthia Valencia MD Unavailable Unavailable Cynthia Valencia MD Unavailable Unavailable Cynthia Valencia MD Unavailable Unavailable Cynthia Valencia MD Unavailable Unavailable Cynthia Valencia MD Unavailable Unavailable Cynthia Valencia MD Unavailable Unavailable Cynthia Valencia MD Unavailable Unavailable ValenciaCynthia MD Unavailable Unavailable Cynthia Valencia MD Unavailable Unavailable ValenciaCynthia MD Unavailable Unavailable ValenciaCynthia MD Unavailable Unavailable Cynthia Valencia MD Unavailable Unavailable Cynthia Valencia MD Unavailable Unavailable Cynthia Valencia MD Unavailable Unavailable Cynthia Valencia MD Unavailable Unavailable Cynthia Valencia MD Unavailable Unavailable Cynthia Valencia MD Unavailable Unavailable Cynthia Valencia MD Unavailable Unavailable ValenciaCynthia MD Unavailable Unavailable Valencia, Cynthia Hernandez MD Unavailable Unavailable ValenciaCynthia MD Unavailable Unavailable Valencia, Cynthia Hernandez MD Unavailable Unavailable ValenciaCynthia MD Unavailable Unavailable Cynthia Valencia MD Unavailable Unavailable Cynthia Valencia MD Unavailable Unavailable ValenciayCnthia MD Unavailable Unavailable ValenciaCynthia MD Unavailable Unavailable Valencia, Cynthia Hernandez MD Unavailable Unavailable Valencia, Cynthia Hernandez MD Unavailable Unavailable ValenciaCynthia MD Unavailable Unavailable ValenciaCynthia MD Unavailable Unavailable Cynthia Valencia MD Unavailable Unavailable Cynthia Valencia MD Unavailable Unavailable Cynthia Valencia MD Unavailable Unavailable Cynthia Valencia MD Unavailable Unavailable Cynthia Valencia MD Unavailable Unavailable Cynthia Valencia MD Unavailable Unavailable ValenciaCynthia MD Unavailable Unavailable ValenciaCynthia MD Unavailable Unavailable ValenciaCynthia MD Unavailable Unavailable Cynthia Valencia MD Unavailable Unavailable Cynthia Valencia MD Unavailable Unavailable Cynthia Valencia MD Unavailable Unavailable Cynthia Valencia MD Unavailable Unavailable Cynthia Valencia MD Unavailable Unavailable Cynthia Valencia MD Unavailable Unavailable Cynthia Valencia MD Unavailable Unavailable Cynthia Valencia MD Unavailable Unavailable Cynthia Valencia MD Unavailable Unavailable Cynthia Valencia MD Unavailable Unavailable Cynthia Valencia MD Unavailable Unavailable Cynthia Valencia MD Unavailable Unavailable Cynthia Valencia MD Unavailable Unavailable Cynthia Valencia MD Unavailable Unavailable Cynhtia Valencia MD Unavailable Unavailable Cynthia Valencia MD Unavailable Unavailable Cynthia Valencia MD Unavailable Unavailable Cynthia Valencia MD Unavailable Unavailable Cynthia Valencia MD Unavailable Unavailable Cynthia Valencia MD Unavailable Unavailable Cynthia Valencia MD Unavailable Unavailable Cynthia Valencia MD Unavailable Unavailable Cynthia Valencia MD Unavailable Unavailable Cynthia Valencia MD Unavailable Unavailable Cynthia Valencia MD Unavailable Unavailable Cynthia Valencia MD Unavailable Unavailable Emma Patel CUSTOMER ACCOUNTS ADVISOR CUSTOMER ACCOUNTS ADVISOR Unavailable Unavailable LETTIERE, A COURTNEY PA Unavailable Unavailable LETTIERE, A COURTNEY PA Unavailable Unavailable LETTIERE, A COURTNEY PA Unavailable Unavailable LETTIERE, A COURTNEY PA Unavailable Unavailable LETTIERE, A COURTNEY PA Unavailable Unavailable LETTIERE, A COURTNEY PA Unavailable Unavailable LETTIERE, A COURTNEY PA Unavailable Unavailable LETTIERE, A COURTNEY PA Unavailable Unavailable LETTIERE, A COURTNEY PA Unavailable Unavailable LETTIERE, A COURTNEY PA Unavailable Unavailable LETTIERE, A COURTNEY PA Unavailable Unavailable LETTIERE, A COURTNEY PA Unavailable Unavailable LETTIERE, A COURTNEY PA Unavailable Unavailable LETTIERE, A COURTNEY PA Unavailable Unavailable LETTIERE, A COURTNEY PA Unavailable Unavailable LETTIERE, A COURTNEY PA Unavailable Unavailable LETTIERE, A COURTNEY PA Unavailable Unavailable LETTIERE, A COURTNEY PA Unavailable Unavailable LETTIERE, A COURTNEY PA Unavailable Unavailable LETTIERE, A COURTNEY PA Unavailable Unavailable LETTIERE, A COURTNEY PA Unavailable Unavailable LETTIERE, A COURTNEY PA Unavailable Unavailable LETTIERE, A COURTNEY PA Unavailable Unavailable LETTIERE, A COURTNEY PA Unavailable Unavailable LETTIERE, A COURTNEY PA Unavailable Unavailable LETTIERE, A COURTNEY PA Unavailable Unavailable LETTIERE, A COURTNEY PA Unavailable Unavailable LETTIERE, A COURTNEY PA Unavailable Unavailable LETTIERE, A COURTNEY PA Unavailable Unavailable Re-disclosure Warning The records that you are about to access may contain information from federally-assisted alcohol or drug abuse programs. If such information is present, then the following federally mandated warning applies: This information has been disclosed to you from records protected by federal confidentiality rules (42 CFR part 2). The federal rules prohibit you from making any further disclosure of this information unless further disclosure is expressly permitted by the written consent of the person to whom it pertains or as otherwise permitted by 42 CFR part 2. A general authorization for the release of medical or other information is NOT sufficient for this purpose. The Federal rules restrict any use of the information to criminally investigate or prosecute any alcohol or drug abuse patient.The records that you are about to access may contain highly sensitive health information, the redisclosure of which is protected by Article 27-F of the [facility] Public Health law. If you continue you may have access to information: Regarding HIV / AIDS; Provided by facilities licensed or operated by the [facility] Office of Mental Health; or Provided by the [facility] Office for People With Developmental Disabilities. If such information is present, then the following [facility] mandated warning applies: This information has been disclosed to you from confidential records which are protected by state law. State law prohibits you from making any further disclosure of this information without the specific written consent of the person to whom it pertains, or as otherwise permitted by law. Any unauthorized further disclosure in violation of state law may result in a fine or usp sentence or both. A general authorization for the release of medical or other information is NOT sufficient authorization for further disc losure. Allergies and Adverse Reactions Type Description Substance Reaction Status Data Source(s ) Allergy to substance Allergy to substance Allergy to substance [facility] ([facility]) Family History Family Member Name Family Member Gender Family Member Status Date o f Status Description Data Source(s) Unknown Male Problem MEDENT ([facility]) Unknown Male Problem MEDENT ([facility]) Unknown Male Problem MEDENT ([facility] () Encounters Encounter Providers Location Date Indications Data Source(s ) David Valencia MD: [address] [place] [id number], Ph. Attender: David Valencia MD [facility] Medical 07/26/2020 12:00:00 AM EST [facility] ([facility]) Outpatient Attender: POLO BRAY [facility] Office 06/12 12:00:00 PM EST MEDENT ([facility] Outpatient Attender: Romeo Kapadia/Jody/Richard 06/13/2020 09:00:00 AM EST MEDENT ([facility]: [facility] 03:00:00 PM EDT MEDENT [facility] Outpatient Attender: David Valencia MD 04/06/2020 06:10:00 PM EDT [facility] Outpatient Attender: COURTNEY moreno 03/30/2020 01:10:00 PM EDT MEDENT ([facility]) Outpatient Attender: David Valencia MD 03/23/2020 10:40:00 AM EDT [facility] Office Visit Attender: Romeo Kapadia/Jody/Richard 03/13/2020 10:30:00 AM EDT MEDENT ([facility]) Office Visit Attender: Romeo Kapadia/Medford/Vikas/Reindl 02/28/2020 01:00:00 PM EDT MEDENT ([facility]) Outpatient Attender: Romeo Kapadia/Medford/Vikas/Reindl 02/13/2020 10:00:00 AM EDT MEDENT ([facility]) Outpatient Attender: David Valencia MD FP 02/06/2020 12:41:00 PM EDT [facility] Outpatient Attender: Romeo Kapadia/Medford/Vikas/Reindl 02/02/2020 09:00:00 AM EDT MEDENT ([facility]) Outpatient Attender: David Valencia MD FP 01/10/2020 03:07:01 PM EDT [facility] Outpatient Attender: David Valencia MD FP 01/09/2020 03:16:00 PM EDT [facility] Outpatient Attender: David Valencia MD FP 01/04/2020 02:17:00 PM EDT [facility] Outpatient Attender: David Valencia MD FP 12/21/2019 08:24:01 AM EDT [facility] Outpatient Attender: David Valencia MD FP 12/20/2019 02:27:00 PM EDT [facility] Outpatient Attender: CHERELLE Kapadia/Medford/Vikas/ Reindl 12/20/2019 11:20:00 AM EDT MEDENT ([facility] Outpatient Attender: David Valencia MD FP 12/07/2019 01:47:00 PM EDT [facility] Outpatient Attender: David Valencia MD FP 12/02/2019 02:53:00 PM EDT [facility] Outpatient Attender: David Valencia MD FP 12/02/2019 02:27:01 PM EDT [facility] Outpatient Attender: David Valencia MD FP 12/02/2019 02:08:00 PM EDT [facility] Outpatient Attender: David Valencia MD FP 12/02/2019 02:04:01 PM EDT [facility] Outpatient Attender: David Valencia MD FP 12/02/2019 02:03:00 PM EDT [facility] Outpatient Attender: David Valencia MD FP 12/02/2019 01:04:00 PM EDT [facility] Outpatient Attender: David Valencia MD 12/02/2019 01:03:01 PM EDT [facility] Outpatient Attender: David CORTEZ 11/30/2019 09:01:03 PM EDT [facility] Outpatient Attender: David Valencia MD 11/30/2019 09:51:11 AM EDT [facility] Outpatient Attender: CHERELLE Kapadia/Medford/Vikas/ Reindl 11/15/2019 10:20:00 AM EDT MEDENT ([facility]) Outpatient Attender: David Valencia MD 11/09/2019 04:35:00 PM EDT [facility] Outpatient Attender: CHERELLE Kapadia/Medford/Vikas/ Reindl 10/18/2019 11:30:00 AM EDT MEDENT ([facility]) Outpatient Attender: CHERELLE Kapadia/Medford/Vikas/ Reindl 10/04/2019 10:20:00 AM EDT MEDENT ([facility] Outpatient 09/01/2019 01:24:00 PM EST [facility] Outpatient 08/23/2019 01:31:00 PM EST [facility] Outpatient Attender: CHERELLE Kapadia/Medford/Vikas/ Reindl 08/23/2019 10:15:00 AM EST MEDENT ([facility] Outpatient 08/12/2019 01:03:00 PM EST [facility] Outpatient Attender: JUAN JOSE CORTEZ 07/06/2019 09:01:07 P M EST [facility] Medications Medication Brand Name Start Date Product Form Dose Route Admi nistrative Instructions Pharmacy Instructions Status Indications Reaction Description Data Source(s) ammonium lactate 120 MG/ML Topical Cream Ammonium Lactate 06/29/2020 12:00:00 AM EST active MEDENT ([facility] Urea 400 MG/ML Topical Cream Urea 04/24/2020 12:00:00 AM EDT active [facility] ([facility] Acetaminophen 325 MG / Oxycodone Hydrochloride 5 MG Or al Tablet [Percocet] Percocet 04/17/2020 12:00:00 AM EDT ORAL completed MEDENT ([facility], ) Cyclobenzaprine hydrochloride 10 MG Oral Tablet Cyclobenzapr ine HCL 03/30/2020 12:00:00 AM EDT active EDENT ([facility]) No Active Medications 03/30/2020 12:00:00 AM EDT completed MEDENT ([facility]) Ibuprofen 800 MG Oral Tablet Ibuprofen 03/30/2020 12:00:00 AM EDT active MEDENT ([facility]) Abdominal Binder/Elastic/3X-Large 03/13/2020 12:00:00 AM EDT active MEDENT ([facility], ) Acetaminophen 325 MG / Oxycodone Hydrochloride 5 MG Or al Tablet [Percocet] Percocet 01/18/2020 12:00:00 AM EDT ORAL completed MEDENT ([facility], ) Sucralfate 1000 MG Oral Tablet [Carafate] Carafate 10/04/2019 1 2:00:00 AM EDT active MEDENT ([facility], ) meloxicam 7.5 MG Oral Tablet Meloxicam 08/23/2019 12:00:00 AM EST active MEDENT ([facility], ) pantoprazole 40 MG Delayed Release Oral Tablet [Protonix] Pr otonix 07/07/2019 12:00:00 AM EST ORAL active EDENT ([facility], ) gabapentin 600 MG Oral Tablet [Neurontin] Neurontin 2018 12:00:00 AM EST active MEDENT ( [facility], ) Ibuprofen 600 MG Oral Tablet Ibuprofen 04/12/2019 12:00:00 AM EDT ORAL completed MEDENT ([facility], ) Acetaminophen 325 MG / Oxycodone Hydrochloride 5 MG Or al Tablet [Percocet] Percocet 04/12/2019 12:00:00 AM EDT ORAL completed MEDENT ([facility], ) meloxicam 7.5 MG Oral Tablet meloxicam 7 .5 mg tablet TAKE ONE TABLET BY MOUTH TWICE DAILY meloxicam 7.5 mg tablet TAKE ONE TABLET BY MOUTH TWICE DAILY completed meloxicam 7.5 MG Ora l Tablet L[facility]ONS ([facility]) ammonium lactate 120 MG/ML Topical Cream ammonium lactate 12 % topical cream APPLY TOPICALLY TO FEET ONCE DAILY ammonium lactate 12 % topical cream APPL Y TOPICALLY TO FEET ONCE DAILY completed ammonium lactate 120 MG/ML Topical Cream [facility] ([facility]) chlorhexidine gluconate 1.2 MG/ML Mouthw crispin chlorhexidine gluconate 0.12 % mouthwash RINSE AND SPIT ONE CAPFUL BY MOUTH THREE TIMES DAILY BEGINNING TOMORROW chlorhexidine gluconate 0.12 % mouthwash RINSE AND SPIT ONE CAPFUL BY MOUTH THREE TIMES DAILY BEGINNING TOMORROW completed chlorhexidine gluconate 1.2 MG/ML Mouthwash [facility] ([facility]) Acetaminophen 325 MG / Oxycodone Hydroch loride 5 MG Oral Tablet oxycodone- acetaminophen 5 mg-325 mg tablet TAKE ONE TABLET BY MOUTH EVERY 4 TO 6 HOURS NEEDED FOR PAIN MAX DAILY DOSE THREE TABLETS oxycodone-acetaminophen 5 mg-325 mg tablet TAKE ONE TABLET BY MOUTH EVERY 4 TO 6 HOURS NEEDED FOR PAIN MAX DAILY DOSE THREE TABLETS completed acetaminophen 325 MG / oxycodone hydrochloride 5 MG Oral Tablet [facility] ([facility]) Amoxicillin 875 MG / Clavulanate 125 MG Oral Tablet amoxicillin 875 mg-potassium clavulanate 125 mg tablet TAKE ONE TABLET BY MOUTH TWICE DAILY amoxicillin 875 mg-potassium clavulanate 125 mg tablet TAKE ONE TABLET BY MOUTH TWICE DAILY completed amoxicillin 875 MG / c lavulanate 125 MG Oral Tablet [facility] ([facility]) Ibuprofen 600 MG Oral Tablet ibuprofen 6 00 mg tablet TAKE ONE TABLET BY MOUTH THREE TIMES DAILY WITH FOOD ibuprofen 600 mg tablet TAKE ONE TABLET BY MOUTH THREE TIMES DAILY WITH FOOD completed ibuprofen 600 MG Oral Tablet [facility] ([facility]) Cyclobenzaprine hydrochloride 10 MG Oral Tablet cyclobenzaprine 10 mg tablet TAKE ONE TABLET BY MOUTH EVERY EIGHT HOURS NEEDED cyclobenzaprine 10 mg tablet TAKE ONE TABLET BY MOUTH EVERY EIGHT HOURS NEEDED completed cyclobenzaprine hydrochloride 10 MG Oral Tablet [facility] ([facility]) Sucralfate 1000 MG Oral Tablet sucralfat e 1 gram tablet TAKE ONE TABLET BY MOUTH TWICE DAILY sucralfate 1 gram tablet TAKE ONE TABLET BY MOUTH TWICE DAILY completed sucralfate 1000 MG Ora l Tablet FREIDA ([facility]) Amoxicillin 500 MG Oral Capsule amoxicil sulma 500 mg capsule TAKE ONE CAPSULE BY MOUTH EVERY 8 HOURS NEEDED amoxicillin 500 mg capsule TAKE ONE CAPS ULE BY MOUTH EVERY 8 HOURS NEEDED complete d amoxicillin 500 MG Oral Capsule [facility]REIDA ([facility]) Lidocaine 40 MG/ML Topical Cream lidocai ne 4 % topical cream apply thin layer TO affected AREA ON back EVERY 8 HOURS NEEDED DIRECTED lidocaine 4 % topical cream apply thin layer TO affected AREA ON back EVERY 8 HOURS NEEDED DIRECTED completed lidocaine 40 MG/ML Topical Cream [facility]REIDA ([facility]) Insurance Providers Payer name Policy type / Coverage type Policy ID Covered alliance party ID Covered alliance party's relationship to craft Policy Craft Plan Information [facility] COMMUNITY PLAN [facility] [id number] SP [id number] [facility] O [id number] S [id number] Medicaid S [id number] S [id number] Managed Care - [facility] Community Plan P [id number] S [id number] [facility] [id number] SP [id number] [facility] SP 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 [id number] SP [id number] [employer] [id number] SP [id number] Medicaid S [id number] S [id number] Managed Care - [facility] Community Plan P [id number] S [id number] Self Pay P [id number] S [id number] MEDICAID [id number] SP [id number] SELF PAY ONLY [id number] SP [id number] [facility] Communty Plan Medicaid [id number] Self [id number] [facility] COMMUNTY PLAN [id number] 18 [id number] [facility] COMMUNITY PLAN XIX [id number] 18 [id number] Self Pay P UNAVAILABLE S UNAVAILA BLE Managed Care - Community Plan [facility] P [id number] S [id number] Medicaid S [id number] S [id number] Managed Care - Community Plan [facility] P [id number] S [id number] Medicaid S [id number] S [id number] [facility] Communty Plan Medicaid [id number] Self [id number] Managed Care - Community Plan [facility] P [id number] S [id number] [facility] Communty Plan Medicaid [id number] Self [id number] [facility] Community Plan Commercial [id number] Self [id number] [facility] Neel/MCR Health Maintenance Organization (HMO) [id number] Self [id number] Medicaid P [id number] S [id number] MEDICAID M [id number] S [id number] [employer] [place] 306/806 [id number] SP [id number] [place] [place] 306/806 [id number] SP [id number] [employer] BCBS B [id number] S [id number] [employer] [place] 306/806 [id number] SELF PAY ONLY [id number] SP [id number] [facility] COMMUNITY PLAN [facility] [id number] SP [id number] [facility] Hmo Commercial [id number] Self [id number] [facility] Hmo Commercial Self D Managed Care [facility] P [id number] S [id number] Problems, Conditions, and Diagnoses Code Display Name Description Problem Type Effective Dates Data Source(s) 405660441 Anemia Anemia Problem 07/26/2020 12:00:00 AM ES T FREIDA ([facility]) Corns and callosities Corns and callosities Problem 05/08/2020 12:00:00 AM EDT [facility] ([facility] [id number] Pronation Pronation Problem 05/08/2020 12:00:00 AM ED T MED[facility] ([facility] [id number] Pronation Pronation Problem 05/08/2020 12:00:00 AM ED T [facility] ([facility] [id number] Plantar fascial fibromatosis Plantar fascial fibromato sis Problem 05/08/2020 12:00:00 AM EDT [facility] ([facility] Surgeries/Procedures Procedure Description Date Indications Data Source(s) Therapeutic, Prophylactic Or Diagnostic Injection Subq/Im 03/30/2020 12:00:00 AM EDT [facility] ([facility] Excise Benign Lesion > 4CM Trunk/Arm/Leg 01/20/2020 12:00:00 AM EDT LUISA ([facility], ) I & D Hematoma 07/19/2019 12:00:00 AM EST LUISA ([facility], ) Results ID Date Data Source [id number] 07/29/2020 09:00:00 AM EST [facility] Name Value Range Interpretation Code Description Data Stephanie rce(s) Supporting Document(s) SARS coronavirus 2 RNA Not Detected [facility] [place] This lab was ordered by [facility] and reported by [facility]. ID Date Data Source [id number] 06/05/2020 09:37:00 PM EST L[place] ([facility]) Name Value Range Interpretation Code Description Data Stephanie rce(s) Supporting Document(s) lipase 90 U/L 73-393 normal Lipase [facility] ([facility]) ID Date Data Source [id number] 06/05/2020 09:37:00 PM EST [place] ([facility]) Name Value Range Interpretation Code Description Data Stephanie rce(s) Supporting Document(s) blood urea nitrogen 11 mg/dL 7-18 normal Blood Urea Nitro gen [place] ([facility]) glucose, fasting 84 mg/dL 70-100 normal Glucose, Fasting AT [facility]) potassium serum 4.2 mEq/L 3.5-5.1 normal Potassium Serum ATH NA ([facility]) creatinine for GFR 0.96 mg/dL 0.70-1.30 normal Creatinine for GF R L[place] ([facility]) sodium level 140 mEq/L 136-145 normal Sodium Level [facility] ([facility]) glomerular filtration rate > 60.0 >60 normal Glomerula r Filtration Rate [place] ([facility]) carbon dioxide level 30 mEq/L 21-32 normal Carbon Dioxide Level [place] ([facility]) chloride level 103 mEq/L 98-107 normal Chloride Level [place] ([facility]) calcium level 8.8 mg/dL 8.5-10.1 normal Calcium Level [place] ( [facility]) anion gap 7 mEq/L 8-16 Below low normal Anion Gap FREIDA ( [facility]) ID Date Data Source [id number] 06/05/2020 09:37:00 PM EST FRE[facility] ([facility]) Name Value Range Interpretation Code Description Data Stephanie rce(s) Supporting Document(s) AST/SGOT 21 U/L 7-37 normal AST/SGOT [facility]RE[facility] ([facility]) ALT/SGPT 29 U/L 12-78 normal ALT/SGPT [facility]RE[facility] ([facility]) bilirubin,direct < 0.1 0.0-0.2 normal Bilirubin,direct AT [facility] ([facility]) bilirubin,total 0.3 mg/dL 0.2-1.0 normal Bilirubin,total ATHE ([facility]) alkaline phosphatase 132 U/L 45-117 Above high normal Alkaline Phosphatase FREIDA ([facility]) total protein 7.5 gm/dL 6.4-8.2 normal Total Protein FREIDA ( [facility]) albumin/globulin ratio normal Albumin/globu sulma Ratio FREIDA ([facility]) albumin 3.5 gm/dL 3.2-5.2 normal Albumin FREIDA ([facility]) ID Date Data Source [id number] 06/05/2020 09:37:00 PM EST FRE[facility] ([facility]) Name Value Range Interpretation Code Description Data Stephanie rce(s) Supporting Document(s) white blood count 9.9 10 4.0-10.0 normal White Blood Count FREIDA ([facility]) red blood count 5.01 10 4.30-6.10 normal Red Blood Count ATHE NA ([facility]) hemoglobin 12.4 g/dL 13.5-17.5 Below low normal Hemoglobin FREIDA ( [facility]) mean corpuscular volume 80.8 fL 80.0-96.0 normal Mean Corpusc ular Volume FREIDA ([facility]) mean corpuscular hemoglobin 24.8 pg 27.0-33.0 Below low nor mal Mean Corpuscular Hemoglobin FREIDA ([facility]) hematocrit 40.5 % 42.0-52.0 Below low normal Hematocrit FREIDA ( [facility]) mean corpuscular HGB conc 30.6 g/dL 32.0-36.5 Below low luis felipe l Mean Corpuscular HGB Conc FREIDA ([facility]) red cell distribution width 15.3 % 11.5-14.5 Above high no rmal Red Cell Distribution Width FREIDA ([facility]) platelet count, automated 168 10 150-450 normal Platelet C ount, Automated FREIDA ([facility]) mono % 5.1 % 0.0-5.0 Above high normal [place] % FREIDA ([facility]) neutrophils % 68.0 % 36.0-66.0 Above high normal Neutrophils % A THENA ([facility]) lymph % 23.4 % 24.0-44.0 Below low normal Lymph % FREIDA ( [facility]) baso % 0.3 % 0.0-1.0 normal Baso % FREIDA ([facility]) immature granulocyte % 0.4 % 0-3.0 normal Immature Gran ulocyte % FREIDA ([facility]) eos % 2.8 % 0.0-3.0 normal Eos % FREIDA ([facility]) neutrophils # 6.8 10 1.5-8.5 normal Neutrophils # FREIDA ( [facility]) nucleated red blood cell % 0.0 % 0-0 normal Nucleated Red Blood Cell % FREIDA ([facility]) lymph # 2.3 10 1.5-5.0 normal Lymph # FREIDA ([facility]) mono # 0.5 10 0.0-0.8 normal [place] # FREIDA ([facility]) baso # 0.0 10 0.0-0.2 normal Baso # FREIDA ([facility]) eos # 0.3 10 0.0-0.5 normal Eos # FREIDA ([facility]) ID Date Data Source [id number] 05/30/2020 09:00:00 AM EST FREIDA ([facility]) Name Value Range Interpretation Code Description Data Stephanie rce(s) Supporting Document(s) ID Date Data Source [id number] 05/30/2020 09:00:00 AM EST FREIDA ([facility]) Name Value Range Interpretation Code Description Data Stephanie rce(s) Supporting Document(s) ID Date Data Source [id number] 05/30/2020 09:00:00 AM EST FREIDA ([facility]) Name Value Range Interpretation Code Description Data Stephanie rce(s) Supporting Document(s) ID Date Data Source [id number] 05/30/2020 09:00:00 AM EST [facility] ([facility], ) Name Value Range Interpretation Code Description Data Tsephanie rce(s) Supporting Document(s) Bacteria identified in Unspecified specimen by Anaerob e culture Laboratory test result MEDENT ([facility] If anaerobic or aerobic growth is detected within the next 7-21 days, an addendum will follow. . . FULL REPORT IN LAB NOTES (eCW and Medent). NO GROWTH ANAEROBICALLY ID Date Data Source [id number] 05/30/2020 09:00:00 AM EST [facility] ([facility], ) Name Value Range Interpretation Code Description Data Stephanie rce(s) Supporting Document(s) Gram Stain Laboratory test result Normal (applies to non-n umeric results) MEDENT ([facility], ) MANY RBCS NO ORGANISMS SEEN Abscess Culture Laboratory test result MEDENT ([facility], ) If aerobic or anaerobic growth is detected within the next 7-21 days, an addendum will follow. . . FULL REPORT IN LAB NOTES (eCW and [facility]). NO GROWTH AEROBICALLY ID Date Data Source [id number] 05/22/2020 03:39:00 PM EST [facility] ([facility], ) Name Value Range Interpretation Code Description Data Stephanie rce(s) Supporting Document(s) Gram Stain Laboratory test result Normal (applies to non-n umeric results) [facility] ([facility], ) FEW WBCS FEW RBCS NO ORGANISMS SEEN Wound Culture Laboratory test result [facility] ([facility]) If aerobic or anaerobic growth is detected within the next 7-21 days, an addendum will follow. . . FULL REPORT IN LAB NOTES (eCW and [facility]). NO GROWTH AEROBICALLY ID Date Data Source [id number] 05/16/2020 05:30:00 PM EST [place] ([facility]) Name Value Range Interpretation Code Description Data Stephanie rce(s) Supporting Document(s) istat HCT 43.0 % 38.0-51.0 normal Istat HCT FREIDA ([facility]) istat potassium 4.4 mEq/L 3.5-5.1 normal Istat Potassium ATHE ([facility]) istat glucose 87 mg/dL 70-105 normal Istat Glucose [place] ( [facility]) istat chloride 100 mEq/L 98-109 normal Istat Chloride FREIDA ([facility]) istat sodium 139 mEq/L 136-145 normal Istat Sodium [facility]REIDA ([facility]) istat Ca++ 4.8 mg/dL 4.5-5.3 normal Istat Ca++ FREIDA ([facility]) istat BUN 12 mg/dL 8-26 normal Istat BUN [facility]RE[place] ([facility]) istat CO2 29.0 mm/L 23.0-27.0 Above high normal Istat CO2 [place] ([facility]) istat creatinine 1.0 mg/dL 0.6-1.3 normal Istat Creatinine AT [facility]) ID Date Data Source [id number] 05/16/2020 05:25:00 PM EST FREIDA ([facility]) Name Value Range Interpretation Code Description Data Stephanie rce(s) Supporting Document(s) lactic acid sepsis protocol 0.7 mmol/L 0.4-2.0 normal Lactic Acid Sepsis Protocol [place] ([facility]) ID Date Data Source [id number] 05/16/2020 05:24:00 PM EST F[place]IDA ([facility]) Name Value Range Interpretation Code Description Data Stephanie rce(s) Supporting Document(s) lipase 76 U/L 73-393 normal Lipase FREIDA ([facility]) ID Date Data Source [id number] 05/16/2020 05:24:00 PM EST FREIDA ([facility]) Name Value Range Interpretation Code Description Data Stephanie rce(s) Supporting Document(s) AST/SGOT 18 U/L 7-37 normal AST/SGOT [place] ([facility]) alkaline phosphatase 127 U/L 45-117 Above high normal Alkaline Phosphatase FRE[place] ([facility]) ALT/SGPT 29 U/L 12-78 normal ALT/SGPT [place] ([facility]) bilirubin,direct < 0.1 0.0-0.2 normal Bilirubin,direct AT [place] ([facility]) total protein 7.8 gm/dL 6.4-8.2 normal Total Protein FREIDA ( [facility]) albumin 3.5 gm/dL 3.2-5.2 normal Albumin FREIDA ([facility]) bilirubin,total 0.2 mg/dL 0.2-1.0 normal Bilirubin,total ATHE ([facility]) albumin/globulin ratio normal Albumin/globu sulma Ratio FREIDA ([facility]) ID Date Data Source [id number] 05/16/2020 05:24:00 PM EST [place] ([facility]) Name Value Range Interpretation Code Description Data Stephanie rce(s) Supporting Document(s) hemoglobin 13.4 g/dL 13.5-17.5 Below low normal Hemoglobin FREIDA ( [facility]) red blood count 5.36 10 4.30-6.10 normal Red Blood Count ATHE ([facility]) white blood count 7.6 10 4.0-10.0 normal White Blood Count FREIDA ([facility]) hematocrit 43.5 % 42.0-52.0 normal Hematocrit FREIDA ([facility]) mean corpuscular hemoglobin 25.0 pg 27.0-33.0 Below low nor mal Mean Corpuscular Hemoglobin FREIDA ([facility]) mean corpuscular HGB conc 30.8 g/dL 32.0-36.5 Below low luis felipe l Mean Corpuscular HGB Conc FREIDA ([facility]) mean corpuscular volume 81.2 fL 80.0-96.0 normal Mean Corpusc ular Volume FREIDA ([facility]) neutrophils % 66.5 % 36.0-66.0 Above high normal Neutrophils % A THENA ([facility]) platelet count, automated 183 10 150-450 normal Platelet C ount, Automated FREIDA ([facility]) red cell distribution width 15.2 % 11.5-14.5 Above high no rmal Red Cell Distribution Width FREIDA ([facility]) mono % 4.2 % 0.0-5.0 normal [place] % FREIDA ([facility]) eos % 3.8 % 0.0-3.0 Above high normal Eos % LYONS ([facility]) baso % 0.4 % 0.0-1.0 normal Baso % L[place]ONS ([facility]) lymph % 24.6 % 24.0-44.0 normal Lymph % L[place]ONS ([facility]) neutrophils # 5.1 10 1.5-8.5 normal Neutrophils # LYONS ( [facility]) lymph # 1.9 10 1.5-5.0 normal Lymph # L[place]ONS ([facility]) nucleated red blood cell % 0.0 % 0-0 normal Nucleated Red Blood Cell % [place] ([facility]) immature granulocyte % 0.5 % 0-3.0 normal Immature Gran ulocyte % [facility]) eos # 0.3 10 0.0-0.5 normal Eos # FREIDA ([facility]) baso # 0.0 10 0.0-0.2 normal Baso # FREIDA ([facility]) mono # 0.3 10 0.0-0.8 normal [place] # [place]ONS ([facility]) ID Date Data Source [id number] 03/06/2020 12:55:00 PM EDT [facility]MY ([facility], ) Name Value Range Interpretation Code Description Data Stephanie rce(s) Supporting Document(s) Gram Stain Laboratory test result Normal (applies to non-n umeric results) [facility]MY ([facility], ) FEW RBCS NO ORGANISMS SEEN Abscess Culture [facility] If aerobic or anaerobic growth is detected within the next 7-21 days, an addendum will follow. . . FULL REPORT IN LAB NOTES (eCW and Med[facility]). NO GROWTH AEROBICALLY ID Date Data Source [id number] 01/20/2020 02:22:00 PM EDT MEDENT ([facility]) Name Value Range Interpretation Code Description Data Stephanie rce(s) Supporting Document(s) Surgical pathology study Laboratory test result MEDENT ([facility]) FINAL DIAGNOSIS Seroma capsule, resection: Irregular saccular portions of fibrous tissue, consistent with seroma capsule. 01/24/2020 - 1103 CLINICAL DIAGNOSIS Excise seroma capsule 01/23/2020 - 1214 GROSS DIAGNOSIS Received in formalin labeled "seroma capsule, requisition states umbilical" are irregular portions of saccular juarez-yellow fibrofatty membranous soft tissue measuring approximately 7 x 5 x 2.5 cm. Sectioning revealed no gross mass. Represented in one. -YZ 01/23/2020 - 1214 Signed Carmencita Munoz M.D. 01/24/2020 1141 ID Date Data Source [id number] 01/19/2020 08:36:00 AM EDT MEDENT ([facility]) Name Value Range Interpretation Code Description Data Stephanie rce(s) Supporting Document(s) Respiratory Panel Laboratory test result MEDENT ([facility]) This respiratory PCR panel detects Influ sincere A H1, H3 and 2009 H1 viruses, Influenza B virus, Resp iratory Syncytial Virus, Human metapneumovirus, Parainfluenza virus 1, 2, 3 and 4, Adenovirus, Rhinovirus/Enterovirus, Coronavirus HKU1, NL63, OC43, 229E and SARS-CoV-2 (COVID 19), Bordetella pertussis, Bordetella parapertussis, Mycoplasma pneumoniae and Chlamydia pneumoniae. NEGATIVE by MULTIPLEXED NUCLEIC ACID PCR SARS-CoV-2 (COVID 19) NEGATIVE - SARS-CoV-2 (COVID19) ID Date Data Source [id number] 01/17/2020 09:50:00 AM EDT [facility] Name Value Range Interpretation Code Description Data Stephanie rce(s) Supporting Document(s) SARS coronavirus 2 RNA [facility] This lab was ordered by [facility] and reported by [facility]. ID Date Data Source [id number] 01/10/2020 02:10:04 PM EDT [facility] Measurements & CalculationsHeight: 65 inches (5 ft. 5 in.) 165.10 cm Weight: 380 pounds 172.73 kg Body Mass Index (BMI): 63.46BMI Interpretation: Morbidly ObeseBody Surface Area (BSA): 2.60Vital SignsTemperature: 98.6F 37C tympanic Pulse Rate: 84 beats/minuteRespiratory Rate: 16 respirations/minuteBlood Pressure: 136/88 right arm sitting automaticVital Signs performed by: David Valencia MD, January 10, 2020 2:55 PMVital Signs performed by: Sonia De La Torre , January 10, 2020 2:17 PMInitial Intake Information From: patientRoom #: 14Infectious Disease / Travel ScreeningRecent travel for you or any close contacts? NoHave you had any close contact with anyone diagnosed with or under investigation for COVID-19 (coronavirus)? NoFever? NoRespiratory symptoms: cough, cold, congestion, shortness of breath, difficulty breathing? NoLoss of smell? NoLoss of taste? NoSmoking, Tobacco, Vaping or Smoke Exposure StatusSmoke Status: current some day smokerTobacco Use: YesAdv to Quit: YesDo you vape? NoHealthcare HistorySince your last office visit...Have you been admitted to the hospital? NoHave you been to an emergency room (ER) or urgent care clinic? NoHave you seen another healthcare provider? [facility] reported today: [facility]/20/2019Have you seen a dentist? NoIntake performed by: Sonia De La Torre , January 10, 2020 2:15 PMRate Your HealthIn general, would you say your health is? FairPain AssessmentAre you currently having any pain which... You would like your provider to address? No Affects your activity level? NoDepression Screening - PHQ-2Over the last two weeks, have you... Had little interest or pleasure in doing things? Not at all Been feeling down, depressed, or hopeless? Not at all PHQ-2 Score: 0Anxiety Screening - TAD-2Over the last two weeks, have you been... Feeling nervous, anxious, or on edge? Not at all Unable to stop or control worrying? Not at all TAD-2 Score: 0Screening, Brief Intervention, & Referral to Treatment (SBIRT)Pre-Screening Questions How many times have you have 5 or more drinks in a day? 0How many times have you used an illegal drug or used a prescription medication for a non-medical reason? 0Performed by: Sonia De La Torre , January 10, 2020 2:16 PMPatient History Medical History:hernia Surgical History:gall bladder removedappendix removedhernia [id number] removed from right breast areahernia repair Family History:cancerdiabetesSocial/Personal History: Advised to Quit/Tobacco Education: YesChief Complaintmed clearance- hernia repair 01/19 dr rezaHistory of Present Illness (HPI)Had umbilical hernia repair 9 months ago and since then has had issues with infection and fluid accumulation in the are a. His surgeon Dr. Reza has decided to do a revision. Documentation of this has not been received here at time of visit. Had no issues perioperatively including with anesthesia. Only cardiopulmonary issue is sleep apnea and he is in the process of establishing with pulmonary for assessment and treatment of this.HPI performed by: David Valencia MD, January 10, 2020 3:04 PMTransitions of Care InboundProblem ReviewProblem List was reviewed and/or updated during this visit.Medication Reconciliation & ReviewMedication List was reviewed and/or updated during this visit, including review of any [id number] medications, herbal therapies, and/or supplements.Allergy ReviewAllergy List was reviewed and/or updated during this visit.Adult Preventive CareProvider Calculated and Reviewed all Clinical Protocols for patient today. Screening Tobacco Screening: Smoking Status: current some day smoker (01/10/2020) Tobacco Use: Currently (01/10/2020) Advised to Quit: Yes (01/10/2020)Review of Systems General: Denies chills, dizziness, fatigue, fever. Cardiovascular: Denies chest pain. Respiratory: Denies difficulty breathing, shortness of breath. Gastrointestinal: Denies diarrhea, constipation. Genitourinary: Denies burning with urination, incomplete emptying. Physical ExamGeneral Appearance: well nourished, well hydrated, no acute distressRespiratory, Auscultation: clear to auscultation bilaterally; no rales, rhonchi, or wheezesRespiratory, Effort: no intercostal retractions or use of accessory musclesCardiovascular, Auscultation: S1, S2 audible; no murmur, rub, or gallop; RRRAbdomen: soft, non-tender, no masses, bowel sounds normalGait & Station: normalOrientation: oriented to time, place, and personMood & Affect: no depression, anxiety, or agitationJudgment & Insight: intactCare Management Plan Transitions of CareInboundRate Your HealthIn general, would you say your health is? FairAssessment & Plan Problems:Assessed:Umbilical hernia (ICD-553.1) (KXS97-B76.9) Assessment: Instructions: Cleared/low risk and optimized for surgery.We will let the surgeon's office know.Obstructive sleep apnea syndrome (ICD-327.23) (ICD10- G47.33) Assessment: Instructions: He is working on starting to see pulmonary for this. Recheck here 3 months, sooner as needed.Patient Instructions/Care Plan: Umbilical hernia: Cleared/low risk and optimized for surgery.We will let the surgeon's office know.Obstructive sleep apnea syndrome: He is working on starting to see pulmonary for this. Recheck here 3 months, sooner as needed. Plan developed in collaboration with patient and/or f amilyMedications:PANTOPRAZOLE SODIUM 40 MG ORAL TABLET DELAYED RELEASECOLACE 100 MG ORAL CAPSULEPHILLIPS MILK OF MAGNESIA 400 MG/5ML ORAL SUSPENSIONDELTASONE 20 MG ORAL TABLETIBUPROFEN 800 MG ORAL TABLETAllergies:No Known Allergies (updated 03/16/2018) Orders:Adult - Ofc Vst, EST, Level III [CPT-53079] Name Value Range Interpretation Code Description Data Stephanie rce(s) Supporting Document(s) ID Date Data Source [id number] 12/20/2019 11:49:00 AM EDT [facility] ([facility], ) Name Value Range Interpretation Code Description Data Stephanie rce(s) Supporting Document(s) Wound Culture Laboratory test result Normal (applies t o non-numeric results) [facility] ([facility], ) FULL REPORT IN LAB NOTES ([facility] Gram Stain Laboratory test result Normal (applies to non-n umeric results) [facility] ([facility], ) NO CELLS SEEN NO ORGANISMS SEEN ID Date Data Source [id number] 12/20/2019 11:49:00 AM EDT [facility] ([facility], ) Name Value Range Interpretation Code Description Data Stephanie rce(s) Supporting Document(s) Bacteria identified in Unspecified specimen by Culture Laborator y test result [facility] ([facility], ) ID Date Data Source [id number] 12/02/2019 01:05:01 PM EDT [facility] Measurements & CalculationsHeight: 65 inches (5 ft. 5 in.) 165.10 cm Weight: 380.2 pounds 172.82 kg Body Mass Index (BMI): 63.50BMI Interpretation: Morbidly ObeseBody Surface Area (BSA): 2.60Vital SignsTemperature: 98.2F 36.78C tympanic Pulse Rate: 81 beats/minuteRespiratory Rate: 16 respirations/minuteBlood Pressure: 140/87 left arm sitting automaticO2 Saturation: 95% room air sittingVital Signs performed by: Sonia De La Torre , December 02, 2019 1:14 PMVital Signs p erformed by: Sonia De La Torre , December 02, 2019 1:14 PMInitial Intake Information From: patientRoom #: 15Infectious Disease / Travel ScreeningRecent travel for you or any close contacts? NoHave you had any close contact with anyone diagnosed with or under investigation for COVID-19 (coronavirus)? NoFever? NoRespiratory symptoms: cough, cold, congestion, shortness of breath, difficulty breathing? NoLoss of smell? NoLoss of taste? NoSmoking, Tobacco, Vaping or Smoke Exposure StatusSmoke Status: current some day smokerTobacco Use: YesAdv to Quit: YesDo you vape? NoPassive Smoke Exposure: YesHealthcare HistorySince your last office visit...Have you been admitted to the hospital? NoHave you been to an emergency room (ER) or urgent care clinic? NoHave you seen another healthcare provider? Yes - [facility]- general surgeonHealthcare provider date reported today: 11/15/2019Have you seen a dentist? NoIntake performed by: Sonia De La Torre , December 02, 2019 1:08 PMRate Your HealthIn general, would you say your health is? GoodPain AssessmentAre you currently having any pain which... You would like your provider to address? No Affects your activity level? NoDepression Screening - PHQ-2Over the last two weeks, have you... Had little interest or pleasure in doing things? Not at all Been feeling down, depressed, or hopeless? Not at all PHQ-2 Score: 0Anxiety Screening - TAD-2Over the last two weeks, have you been... Feeling nervous, anxious, or on edge? Not at all Unable to stop or control worrying? Not at all TAD-2 Score: 0Screening, Brief Intervention, & Referral to Treatment (SBIRT)Pre-Screening Questions How many times have you have 5 or more drinks in a day? 0How many times have you used an illegal drug or used a prescription medication for a non- medical reason? 0Performed by: Sonia De La Torre , December 02, 2019 1:08 PMPatient History Medical History:hernia Surgical History:gall bladder removedappendix removedhernia dglotba0ovyg removed from right breast areahernia repair Family H istory:cancerdiabetesSocial/Personal History: Advised to Quit/Tobacco Education: YesChief Complaintfollow-up visit- sleep apnea/ heartburnHistory of Present Illness (HPI)He was in the process of being referred to Pulmonary but his insurance lapsed and this never happened. Still having a lot of symptoms. Non restful sleep. Falls asleep easily sitting in a chair watching TV or reading. Snores.Chronic GERD. No relief with omeprazole or over the counter Zantac. Occasional dysphagia for solids. No early saitiety. No weight loss. Has been working with Bariatric Surgery for potential gastric bypass.HPI performed by: David Valencia MD, December 02, 2019 2:22 PMTransitions of Care InboundProblem ReviewProblem List was reviewed and/or updated during this visit.Medication Reconciliation & ReviewMedication List was reviewed and/or updated during this visit, including review of any [id number] medications, herbal therapies, and/or supplements.Allergy ReviewAllergy List was reviewed and/or updated during this visit.Adult Preventive CareProvider Calculated and Reviewed all Clinical Protocols for patient today. Screening Tobacco Screening: Smoking Status: current some day smoker (12/02/2019) Tobacco Use: Currently (12/02/2019) Advised to Quit: Yes (12/02/2019)Review of Systems General: Denies dizziness, fatigue. Gastrointestinal: Denies constipation. Genitourinary: Denies incomplete emptying. Physical ExamGeneral Appearance: well nourished, well hydrated, no acute distressRespiratory, Effort: no intercostal retractions or use of accessory musclesCardiovascular, Auscultation: S1, S2 audible; no murmur, rub, or gallop; RRRAbdomen: soft, non-tender, no masses, bowel sounds normalGait & Station: normalOrientation: oriented to time, place, and personMood & Affect: no depression, anxiety, or agitationJudgment & Insight: intactCare Management Plan Transitions of CareInboundRate Your HealthIn general, would you say your health is? GoodAssessment & Plan Problems:Assessed:GERD (ICD-530.81) (ICD10- K21.9) Assessment: Instructions: Has failed both omeprazole and Zantac.Trial of Pantoprazole and if GERD and dysphagia persists then consider referral to GI.Recheck here 3 months, sooner as needed.Obstructive sleep apnea syndrome (ICD-327.23) (IZG78-L27.33) Assessment: Instructions: Refer to pulomary for possible sleep study.Encouraged weight loss.Patient Instructions/Care Plan: GERD: Has failed both omeprazole and Zantac.Trial of Pantoprazole and if GERD and dysphagia persists then consider referral to GI.Recheck here 3 months, sooner as needed.Obstructive sleep apnea syndrome: Refer to pulomary for possible sleep study.Encouraged weight loss. Plan developed in collaboration with patient and/or familyMedications:PANTOPRAZOLE SODIUM 40 MG ORAL TABLET DELAYED RELEASECOLACE 100 MG ORAL CAPSULEPHILLIPS MILK OF MAGNESIA 400 MG/5ML ORAL SUSPENSIONDELTASONE 20 MG ORAL TABLETIBUPROFEN 800 MG ORAL TABLETMedication Changes:New Prescription:PANTOPRAZOLE SODIUM 40 MG ORAL TABLET DELAYED RELEASE-One tablet by mouth every day Qty: 30[Tablet] Refills: 2 Method: ElectronicRemoved:PEPCID 20 MG ORAL TABLET-take one tablet by mouth twice daily Qty: 60[Tablet] Refills: 2, HYDROCHLOROTHIAZIDE 12.5 MG ORAL CAPSULE-take one tablet by mouth daily, HYDROCODONE-ACETAMINOPHEN 5-325 MG ORAL TABLET-one by mouth three times a day prn for pain, BACTRIM DS 800-160 MG ORAL TABLET-take one tablet by mouth twice daily x 7 days, METHOCARBAMOL 500 MG ORAL TABLET-2 tabs every 6hrs prn for painAllergies:No Known Allergies (updated 03/16/2018) Orders:Adult - Ofc Vst, EST, Level III [CPT-71719] Pulmonology Consult [CPT-07660] Medications:PANTOPRAZOLE SODIUM 40 MG ORAL TABLET DELAYED RELEASE (PANTOPRAZOLE SODIUM) One tablet by mouth every day #30[Tablet] x 2 Route:ORAL Entered and Authorized by: David Valencia MD Method used: Electronically to [facility] (retail) [id number] [place] [address] Fax: Note to Pharmacy: Route: ORAL; RxID: [id number] PEPCID 20 MG ORAL TABLET (FAMOTIDINE) take one tablet by mouth twice daily #60[Tablet] x 2 Route:ORAL Entered by: Sonia De La Torre Authorized by: Emma INGRAM Method used: Electronically to [facility]* ([facility]) [id number] [place] [address] RxID: [id number] signed by David Valencia MD on 12/02/2019 at 2:26 PM Name Value Range Interpretation Code Description Data Stephanie rce(s) Supporting Document(s) ID Date Data Source [id number] 07/19/2019 03:39:00 PM EST [facility], ) Name Value Range Interpretation Code Description Data Stephanie rce(s) Supporting Document(s) Bacteria identified in Unspecified specimen by Culture Laborator y test result [facility] ([facility]) Procedure Vital Signs ID Date Data Source UNK Name Value Range Interpretation Code Description Data Source(s) Body weight 5986 [oz_av] 5986 [oz_av] FREIDA ([facility]) Systolic blood pressure 132 mm[Hg] 132 mm[Hg] A THENA ([facility]) Body mass index (BMI) [Ratio] 62.3 kg/m2 62.3 k g/m2 [facility] ([facility]) Body height 65 [in_i] 65 [in_i] [facility] ([facility]) Diastolic blood pressure 88 mm[Hg] 88 mm[Hg] [facility]REIDA ([facility]) Body surface area Derived from formula 2.60 m2 2.60 m2 [facility]) Body weight 172.878 kg 172.878 kg [facility] ([facility]) [place] body weight 136 [lb_av] 136 [lb_av] MED[facility] T ([facility]) Body mass index (BMI) [Ratio] 63.4 kg/m2 63.4 k g/m2 [facility] ([facility]) Body weight 381.12 [lb_av] 381.12 [lb_av] [facility] ([facility]) Body height 65 [in_i] 65 [in_i] [facility] ([facility]) 5'5" Heart rate 74 /min 74 /min [facility] ([facility]) Diastolic blood pressure 84 mm[Hg] 84 mm[Hg] [facility] ([facility]) Systolic blood pressure 151 mm[Hg] 151 mm[Hg] [facility] ([facility]) Body surface area Derived from formula 2.59 m2 2.59 m2 [facility] ([facility]) Body weight 171.007 kg 171.007 kg [facility] ([facility]) [place] body weight 136 [lb_av] 136 [lb_av] [facility] ([facility]) Body mass index (BMI) [Ratio] 62.7 kg/m2 62.7 k g/m2 [facility] ([facility]) Body weight 377.00 [lb_av] 377.00 [lb_av] [facility] ([facility]) Body height 65 [in_i] 65 [in_i] [facility] ([facility]) 5'5" Diastolic blood pressure 64 mm[Hg] 64 mm[Hg] [facility] ([facility]) Systolic blood pressure 138 mm[Hg] 138 mm[Hg] [facility] ([facility]) Body surface area Derived from formula 2.59 m2 2.59 m2 [facility] ([facility]) Body weight 171.574 kg 171.574 kg [facility] ([facility]) [place] body weight 136 [lb_av] 136 [lb_av] [facility] ([facility]) Body mass index (BMI) [Ratio] 62.9 kg/m2 62.9 k g/m2 [facility] ([facility]) Body weight 378.25 [lb_av] 378.25 [lb_av] [facility] ([facility]) Body height 65 [in_i] 65 [in_i] [facility] ([facility]) 5'5" Diastolic blood pressure 87 mm[Hg] 87 mm[Hg] [facility] ([facility]) Systolic blood pressure 130 mm[Hg] 130 mm[Hg] [facility] ([facility]) Body surface area Derived from formula 2.60 m2 2.60 m2 [facility] ([facility]) Body weight 172.084 kg 172.084 kg [facility] ([facility]) [place] body weight 136 [lb_av] 136 [lb_av] [facility] ([facility]) Body mass index (BMI) [Ratio] 63.1 kg/m2 63.1 k g/m2 [facility] ([facility]) Body weight 379.38 [lb_av] 379.38 [lb_av] [facility] ([facility]) Body height 65 [in_i] 65 [in_i] [facility] ([facility]) 5'5" Body mass index (BMI) [Ratio] 61.1 kg/m2 61.1 k g/m2 [facility] ([facility] Heart rate 77 /min 77 /min [facility] ([facility] Diastolic blood pressure 90 mm[Hg] 90 mm[Hg] [facility] ([facility] Systolic blood pressure 137 mm[Hg] 137 mm[Hg] M EDENT ([facility] Body weight 367.00 [lb_av] 367.00 [lb_av] MEDEN T ([facility] Body height 65 [in_i] 65 [in_i] [facility] ([facility] 5'5" Body weight 174.352 kg 174.352 kg [facility] ([facility]) [place] body weight 136 [lb_av] 136 [lb_av] [facility] T ([facility]) Body mass index (BMI) [Ratio] 64.0 kg/m2 64.0 k g/m2 [facility] ([facility]) Body weight 384.38 [lb_av] 384.38 [lb_av] [facility] ([facility]) Body height 65 [in_i] 65 [in_i] [facility] ([facility]) 5'5" Heart rate 72 /min 72 /min [facility] ([facility], ) Diastolic blood pressure 85 mm[Hg] 85 mm[Hg] [facility] ([facility]) Systolic blood pressure 127 mm[Hg] 127 mm[Hg] [facility] ([facility]) Body mass index (BMI) [Ratio] 61.6 kg/m2 61.6 k g/m2 [facility] ([facility]) Body height 65 [in_i] 65 [in_i] [facility] ([facility], [facility]) 5'5" Body weight 370.00 [lb_av] 370.00 [lb_av] [facility] T ([facility]) Body temperature 97.8 [degF] 97.8 [degF] [facility] ([facility]) Oxygen saturation in Arterial blood by Pulse oximetry 97 % 97 % [facility] ([facility]) Respiratory rate 18 /min 18 /min [facility] ( [facility]) Heart rate 66 /min 66 /min [facility] ([facility], [facility]) Diastolic blood pressure 93 mm[Hg] 93 mm[Hg] [facility] ([facility]) Systolic blood pressure 126 mm[Hg] 126 mm[Hg] [facility] ([facility]) Body weight 177.017 kg 177.017 kg [facility] ([facility]) Body mass index (BMI) [Ratio] 64.9 kg/m2 64.9 k g/m2 [facility] ([facility]) Body weight 390.25 [lb_av] 390.25 [lb_av] [facility] T ([facility]) Body height 65 [in_i] 65 [in_i] [facility] ([facility]) 5'5" Diastolic blood pressure 90 mm[Hg] 90 mm[Hg] [facility] ([facility]) Systolic blood pressure 154 mm[Hg] 154 mm[Hg] [facility] ([facility]) Body weight 175.600 kg 175.600 kg [facility] ([facility]) Body mass index (BMI) [Ratio] 64.4 kg/m2 64.4 k g/m2 [facility] ([facility]) Body weight 387.12 [lb_av] 387.12 [lb_av] [facility] T ([facility]) Body height 65 [in_i] 65 [in_i] [facility] ([facility]) 5'5" Diastolic blood pressure 100 mm[Hg] 100 mm[Hg] [facility] ([facility]) Systolic blood pressure 180 mm[Hg] 180 mm[Hg] [facility] Body weight 174.806 kg 174.806 kg [facility] ([facility]) Body mass index (BMI) [Ratio] 64.1 kg/m2 64.1 k g/m2 [facility] ([facility]) Body weight 385.38 [lb_av] 385.38 [lb_av] [facility] T ([facility]) Body height 65 [in_i] 65 [in_i] [facility] ([facility]) 5'5" Diastolic blood pressure 100 mm[Hg] 100 mm[Hg] [facility] ([facility]) Systolic blood pressure 148 mm[Hg] 148 mm[Hg] [facility] ([facility]) Body weight 6080 [oz_av] 6080 [oz_av] FREIDA ([facility]) Systolic blood pressure 136 mm[Hg] 136 mm[Hg] A THENA ([facility]) Body height 65 [in_i] 65 [in_i] FREIDA ([facility]) Diastolic blood pressure 88 mm[Hg] 88 mm[Hg] FREIDA ([facility]) Body weight 173.842 kg 173.842 kg [facility] ([facility]) Body mass index (BMI) [Ratio] 63.8 kg/m2 63.8 k g/m2 [facility] ([facility]) Body weight 383.25 [lb_av] 383.25 [lb_av] MED[facility] T ([facility]) Body height 65 [in_i] 65 [in_i] [facility] ([facility], ) 5'5" Diastolic blood pressure 96 mm[Hg] 96 mm[Hg] [facility] ([facility]) Systolic blood pressure 154 mm[Hg] 154 mm[Hg] M EDDELMY ([facility]) Body weight 6083.2 [oz_av] 6083.2 [oz_av] ATHEN A ([facility]) Systolic blood pressure 140 mm[Hg] 140 mm[Hg] A THENA ([facility]) Body height 65 [in_i] 65 [in_i] FREIDA ([facility]) Diastolic blood pressure 87 mm[Hg] 87 mm[Hg] FREIDA ([facility]) Body height 65 [in_i] 65 [in_i] [facility] ([facility]) 5'5" Body temperature 97.8 [degF] 97.8 [degF] [facility] ([facility]) Diastolic blood pressure 91 mm[Hg] 91 mm[Hg] [facility] ([facility]) Systolic blood pressure 139 mm[Hg] 139 mm[Hg] [facility] Body weight 172.368 kg 172.368 kg [facility] ([facility]) Body mass index (BMI) [Ratio] 63.2 kg/m2 63.2 k g/m2 [facility] ([facility]) Body weight 380.00 [lb_av] 380.00 [lb_av] [facility] T ([facility]) Body weight 170.780 kg 170.780 kg [facility] ([facility]) Body mass index (BMI) [Ratio] 62.6 kg/m2 62.6 k g/m2 [facility] ([facility]) Body weight 376.50 [lb_av] 376.50 [lb_av] [facility] ([facility]) Body height 65 [in_i] 65 [in_i] [facility] ([facility]) 5'5" Body temperature 97.7 [degF] 97.7 [degF] [facility] ([facility]) Diastolic blood pressure 80 mm[Hg] 80 mm[Hg] [facility] ([facility]) Systolic blood pressure 120 mm[Hg] 120 mm[Hg] [facility] ([facility]) Body weight 172.878 kg 172.878 kg [facility] ([facility]) Body mass index (BMI) [Ratio] 63.4 kg/m2 63.4 k g/m2 [facility] ([facility]) Body weight 381.12 [lb_av] 381.12 [lb_av] [facility] ([facility]) Body height 65 [in_i] 65 [in_i] [facility] ([facility]) 5'5" Body temperature 97.7 [degF] 97.7 [degF] [facility] ([facility]) Heart rate 65 /min 65 /min [facility] ([facility]) Diastolic blood pressure 77 mm[Hg] 77 mm[Hg] [facility] ([facility]) Systolic blood pressure 122 mm[Hg] 122 mm[Hg] [facility] ([facility]) Body weight 170.554 kg 170.554 kg [facility] ([facility]) Body mass index (BMI) [Ratio] 62.6 kg/m2 62.6 k g/m2 [facility] ([facility]) Body weight 376.00 [lb_av] 376.00 [lb_av] [facility] ([facility]) Body height 65 [in_i] 65 [in_i] [facility] ([facility]) 5'5" Diastolic blood pressure 88 mm[Hg] 88 mm[Hg] [facility] ([facility]) Systolic blood pressure 144 mm[Hg] 144 mm[Hg] [facility] ([facility]) Body weight 169.250 kg 169.250 kg [facility] ([facility]) Body mass index (BMI) [Ratio] 62.1 kg/m2 62.1 k g/m2 [facility] ([facility]) Body weight 373.12 [lb_av] 373.12 [lb_av] BHAVIK T ([facility], ) Body height 65 [in_i] 65 [in_i] LUISA ([facility], ) 5'5" Diastolic blood pressure 85 mm[Hg] 85 mm[Hg] LUSIA ([facility], ) Systolic blood pressure 130 mm[Hg] 130 mm[Hg] M JIM ([facility], ) Patient Treatment Plan of Care Planned Activity Planned Date Details Description Data Source (s) Sucralfate 1000 MG Oral Tablet FREIDA ([facility]) Acetaminophen 325 MG / Oxycodone Hydrochloride 5 MG Oral Tablet [facility] ([facility]) meloxicam 7.5 MG Oral Tablet [facility] ([facility]) Lidocaine 40 MG/ML Topical Cream [facility]RE[facility] ([facility]) Ibuprofen 600 MG Oral Tablet [facility] ([facility]) Cyclobenzaprine hydrochloride 10 MG Oral Tablet [facility] ([facility]) chlorhexidine gluconate 1.2 MG/ML Mouthwash [facility]REIDA ([facility]) Amoxicillin 875 MG / Clavulanate 125 MG Oral Tablet [facility] ([facility]) Amoxicillin 500 MG Oral Capsule FREIDA ([facility]) ammonium lactate 120 MG/ML Topical Cream FREIDA ([facility])
[2020-08-03] MEDS ORDERED: KETOROLAC 60MG 2ML VIAL As Ordered ONE (12:17)
[2020-08-03] MEDS ORDERED: ROCURONIUM BROMIDE 50 MG/5 ML VIAL As Ordered ONE (12:18)
[2020-08-03] MEDS ORDERED: LIDOCAINE 2% 100MG/5ML SDV (FOR ANES.) As Ordered ONE (12:18)
[2020-08-03] MEDS ORDERED: fentaNYL 100 MCG/2 ML INJECTION (J3010) As Ordered ONE ×3 (12:18→17:10)
[2020-08-03] MEDS ORDERED: propofoL 200 MG/20 ML VIAL As Ordered ONE ×2 (12:18→16:15)
[2020-08-03] MEDS ORDERED: MIDAZOLAM INJ 2MG/2ML VIAL (J2250 PER 1MG) As Ordered ONE (12:19)
[2020-08-03] MEDS ORDERED: ONDANSETRON 4MG/2ML VIAL As Ordered ONE (12:19)
[2020-08-03] MEDS ORDERED: dexameTHASONE 4 MG/ML 1ML VIAL (J1100 PER 1MG) As Ordered ONE (12:19)
[2020-08-03] MEDS ORDERED: LIDOCAINE 1% SDV 30ML VIAL As Ordered ONE (13:08)
[2020-08-03] MEDS ORDERED: BUPIVACAINE HCL 0.25% 30ML VIAL As Ordered ONE (13:08)
[2020-08-03] MEDS ORDERED: ACETAMINOPHEN 1000MG 100ML IV BTL (OFIRMEV) (J0131 PER 10MG) As Ordered ONE (14:51)
[2020-08-03] MEDS ORDERED: OXYMETAZOLINE 0.05% NASAL SPRAY (AFRIN) As Ordered ONE (16:08)
[2020-08-03] MEDS ORDERED: ONDANSETRON 4MG/2ML VIAL IV PRN ×2 (16:30→17:30)
[2020-08-03] MEDS ORDERED: PERCOCET 5MG/325MG TAB PO PRN (16:30)
[2020-08-03] MEDS: fentaNYL 100 MCG/2 ML INJECTION (J3010) IV PRN ×3 (17:11→17:24)
[2020-08-03] MEDS ORDERED: HYDROMORPHONE HCL 0.5 MG/ 0.5 ML SYRINGE (J1170 PER 1) IV PRN (17:30)
[2020-08-03] MEDS ORDERED: oxyCODONE 5MG TAB PO PRN (17:30)
[2020-08-03] MEDS ORDERED: LR 1,000 ML IV SCH (17:30)
[2020-08-03] MEDS: KETOROLAC 30 MG/ML 1ML VIAL IV PRN (18:07)
[2020-08-03] MEDS: LR 1,000 ML IV SCH (18:07)
[2020-08-03] MEDS: SENOKOT S TAB PO SCH (21:11)
[2020-08-03] MEDS: PERCOCET 5MG/325MG TAB PO PRN (21:42)
[2020-08-04] MEDS: KETOROLAC 30 MG/ML 1ML VIAL IV PRN ×4 (00:34→20:22)
[2020-08-04] MEDS: LR 1,000 ML IV SCH ×3 (00:57→16:53)
[2020-08-04 02:00] VITALS: BP 144/79
[2020-08-04 06:00] VITALS: BP 146/82
[2020-08-04 06:53] LABS: BASO % 0.2 % (0.0-1.0); EOS # 0.2 10^3/uL (0.0-0.5); EOS % 1.4 % (0.0-3.0); HEMATOCRIT 40.2 % (42.0-52.0); HEMOGLOBIN 12.5 g/dl (13.5-17.5); LYMPH # 1.8 10^3/uL (1.5-5.0); LYMPH % 15.2 % (24.0-44.0); MEAN CORPUSCULAR HEMOGLOBIN 25.1 pg (27.0-33.0); MEAN CORPUSCULAR HGB CONC 31.1 g/dl (32.0-36.5); MEAN CORPUSCULAR VOLUME 80.7 fl (80.0-96.0); MONO # 0.5 10^3/uL (0.0-0.8); NEUTROPHILS # 9.5 10^3/uL (1.5-8.5); NEUTROPHILS % 78.9 % (36.0-66.0); PLATELET COUNT, AUTOMATED 184 10^3/uL (150-450); RED BLOOD COUNT 4.98 10^6/uL (4.30-6.10); WHITE BLOOD COUNT 12.1 10^3/uL (4.0-10.0)
[2020-08-04 07:08] LABS: BLOOD UREA NITROGEN 12 MG/DL (7-18); CALCIUM LEVEL 8.9 MG/DL (8.5-10.1); CARBON DIOXIDE LEVEL 30 MEQ/L (21-32); CHLORIDE LEVEL 104 MEQ/L (98-107); CREATININE FOR GFR 0.94 MG/DL (0.70-1.30); GLOMERULAR FILTRATION RATE > 60.0 (>60); GLUCOSE, FASTING 105 MG/DL (70-100); POTASSIUM SERUM 4.1 MEQ/L (3.5-5.1); SODIUM LEVEL 140 MEQ/L (136-145)
[2020-08-04] MEDS ORDERED: INFLUENZA QUADRIVALENT PF VACCINE 0.5ML SYRINGE IM ONE (09:00)
[2020-08-04] MEDS: SENOKOT S TAB PO SCH ×2 (09:21→20:22)
[2020-08-04] MEDS: ENOXAPARIN 40MG/0.4ML SYRINGE (J1650 PER 10MG) SC SCH (09:21)
[2020-08-04] MEDS: PANTOPRAZOLE 40MG VIAL (C9113 PER 1) IV SCH (09:21)
[2020-08-04 10:00] VITALS: BP 156/90
--- NOTE | 2020-08-04 13:14 | IPNPDOC ---
Text Note Date of Service The patient was seen on 08/04/20. NOTE No acute events overnight. He is comfortable. Pain is controlled and he has been out of bed a couple times. The drain output was 40cc yesterday. No questions of complaints. VSSAF NAD abd - soft, TTP appropriate, dressings c/d/i, drain serosanguinous A) 40y/o male s/p excision of mesh and seroma. P) reg diet ambulate monitor drain output plan on d/c home tomorrow am. Gunnar Casanova DO VS,Jimmye, I+O VS, Fishbone, I+O Laboratory Tests 08/04/20 06:27 Vital Signs Date Time Temp Pulse Resp B/P (MAP) Pulse Ox O2 Delivery O2 Flow Rate FiO2 08/04/20 10:00 98.3 58 18 156/90 (112) 93 Room Air 08/04/20 00:24 2.0 I&O- Last 24 Hours up to 6 AM 08/04/20 06:00 Intake Total 3750 ml Output Total 825 ml Balance 2925 ml ADAMS CASANOVA DO Aug 04, 2020 13:14
[2020-08-04 14:00] VITALS: BP 140/78
--- NOTE | 2020-08-04 15:47 | ROOPDOC ---
[facility] Report Of Operation Report of Operation DATE OF PROCEDURE: 08/03/20 PREPROCEDURE DIAGNOSES: recurrent seroma 1 year post umbilical hernia repair, possible mesh infection. POSTPROCEDURE DIAGNOSES: same. PROCEDURE: Laparoscopic lysis of adhesion, excision of seroma cavity, soft tissue, umbilicus and removal of mesh, primary repair of hernia. SURGEON: William Yusuf MD AGENT LICENSING CLERK: Maegan Viera NP ANESTHESIA: General Anesthesia. ESTIMATED BLOOD LOSS: Approximately 30 mLs mL. COMPLICATIONS: none DRAINS: 10 flat PERI drain to subcutaneous space SPECIMEN:umbilicus, soft tissue and mesh REMARKS: . PROCEDURE NOTE: . DESCRIPTION OF PROCEDURE: Patient received cefazolin 2 g IV preoperatively for wound prophylaxis. He was brought to the operating room, placed supine on the procedure table. TEDs and sequential compression device placed on both lower extremities were DVT prophylaxis. General endotracheal anesthesia started. His body habitus wouldn't allow us to tuck his arms to his side. His abdomen prepped and draped in usual sterile fashion.We paused for a surgical timeout using both pre-incision safety checklist to verify correct patient, procedure site and additional clinical information prior to beginning the procedure He has ahardened mass just underneath the umbilicus where the chronic seroma is located where his prior umbilical/incisional hernia repair was done and likewise prior attempt at excision of the seroma capsule. This encomapasses an area about 4 x 4 centimeters. The umbilicus is mildly thickened and hardened. There is no active drainage. There is no active cellulitis. I started with diagnostic laparoscopy. Initial incision placed over the left upper quadrant area. A Veress needle was inserted and a controlled fashion confirmed by saline drop technique. CO2 insufflation and started to pressure 15 mmHg. Using the same incision a 5 mm bariatric trocar was placed under direct vision of laparoscope. The area underneath the insertion site was inspected for injury and none was found. He was repositioned slightly reverse Trendelenburg, tilted towards the right side. There are multiple omental adhesions covering the anterior abdominal wall with no visible bowels. The mesh was not visible. Another 5 mm port was placed over the left side of the abdomen around the umbilical line. Using this to working ports, the omental adhesions were lysed away from the abdominal wall using Harmonic scalpel. Once the full abdominal wall was cleared of omental adhesions I then reexamined the prior hernia repair. The mesh seems to be well incorporated and not visible. This seems to be fully reperitonealized. Though there was this persistent hardening at the subcutaneous space, there is no evidence of any hernia recurrence though the mesh could have balled upwards into the prior hernia space, I could not confirm this laparoscopically. The lysis of omental adhesions took about an hour to complete. The laparoscopy part was then discontinued and I proceeded with an open incision around the umbilicus for the rest of the procedure. The abdomen was then deflated. I initially created a vertical periumbilical incision around the hardened portion of the umbilicus and going through quite thick scar tissue. Get down to the level of the fascia into the seroma cavity. There is only a small amount of serous fluid. There is some crusty, soft "toothpase" like consistency within the seroma capsule which I cultured. There are multiple pockets of this hardened capsule with thickened scar underneath the umbilicus and the umbilical skin cleft is tethered to the underlying scar tissue so I decided to remove the umbilical skin cleft with the rest of the scarring. I went around the other side of the umbilicus to create a cruciate incision to remove the umbilicus. This was taken circumferentially down to the subcutaneous tissue and around the hardened scar down to the anterior fascia. Anterior fascia is somewhat curved outward and the week but still no evidence of the mesh getting pushed outward. The previously placed 0V LOC to close the umbilical hernia is visible and this was removed. I opened up at the anterior fascia and mesh was encountered. The fascial incision was extended through the length of the skin incision and a circumferentially came around and remove the mesh with part of the anterior fascia. This left me a gap of about 8 cm vertically and about 4 cm transversely at the widest point. The fascia was thinned out. I debated whether I should put a mesh. With the very thin fascia, this probably will not hold sufficiently together and we will eventually form a hernia given his morbid obesity. But not knowing if I had a mesh infection, replacing the old mesh would be very risky. The only mesh that is available is a 7x10 cm phasix mesh which would be adequate overlap for the closure anyway. Thus a decided to forego placing a mesh. I chose a double looped #1 PDS to close the defect pr imarily. This was run in both directions and closed the midline. The closure seems to be adequate. I left a 10 flat PERI drain at the subcutaneous space and I closed some of the subcutaneous space to close the cavity as he is prone to this seroma's. The skin was trimmed and was closed with skin maría elena. Patient tolerated the procedure well. He was promptly awakened, extubated and br ought to recovery room in stable condition. WILLIAM YUSUF MD Aug 04, 2020 15:47
[2020-08-04] MEDS: PERCOCET 5MG/325MG TAB PO PRN (17:47)
[2020-08-04] MEDS ORDERED: MAGNESIUM CITRATE 300 ML BTL PO ONE (19:00)
[2020-08-04] MEDS ORDERED: METOCLOPRAMIDE INJ 10MG/2ML VIAL (J2765 PER 1) IV ONE (19:00)
[2020-08-04 22:00] VITALS: BP 157/86
[2020-08-05] MEDS: LR 1,000 ML IV SCH ×3 (00:45→16:51)
[2020-08-05] MEDS: KETOROLAC 30 MG/ML 1ML VIAL IV PRN ×3 (05:26→20:16)
[2020-08-05 06:00] VITALS: BP 162/90
[2020-08-05] MEDS: PANTOPRAZOLE 40MG VIAL (C9113 PER 1) IV SCH (08:29)
[2020-08-05] MEDS: ENOXAPARIN 40MG/0.4ML SYRINGE (J1650 PER 10MG) SC SCH (08:29)
[2020-08-05] MEDS: SENOKOT S TAB PO SCH ×2 (08:29→20:17)
--- NOTE | 2020-08-05 11:29 | IPNPDOC ---
Text Note Date of Service The patient was seen on 08/05/20. NOTE No acute events overnight. He is comfortable. Pain is controlled and he has been out of bed a couple times. The drain output is still serosanguinous. He is not eating much at all yet, and has not had a bowel movement in 5 days. He would like to be able to have a BM and tolerate diet prior to going home. VSSAF NAD abd - soft, TTP appropriate, dressings c/d/i, drain serosanguinous A) 40y/o male s/p excision of mesh and seroma. P) reg diet ambulate bottle of mag citrate monitor drain output plan on d/c home tomorrow if he is tolerating diet, and has a BM. Gunnar Casanova DO VS,Harry, I+O VS, Harry, I+O Vital Signs Date Time Temp Pulse Resp B/P (MAP) Pulse Ox O2 Delivery O2 Flow Rate FiO2 08/05/20 06:00 98.8 69 18 162/90 (114) 96 08/04/20 22:28 Room Air 08/04/20 00:24 2.0 I&O- Last 24 Hours up to 6 AM 08/05/20 05:59 Intake Total 1950 ml Output Total 40 ml Balance 1910 ml ADAMS CASANOVA DO Aug 05, 2020 11:29
[2020-08-05] MEDS ORDERED: MAGNESIUM CITRATE 300 ML BTL PO ONE (11:30)
[2020-08-05 14:00] VITALS: BP 163/87
[2020-08-05 22:00] VITALS: BP 163/89
[2020-08-05] MEDS: MORPHINE 2 MG/ML 1ML VIAL (J2270) IV PRN (22:07)
[2020-08-06] MEDS: LR 1,000 ML IV SCH ×2 (00:44→10:34)
[2020-08-06] MEDS: MORPHINE 2 MG/ML 1ML VIAL (J2270) IV PRN ×2 (05:54→10:30)
[2020-08-06 06:00] VITALS: BP 159/89
[2020-08-06] MEDS: SENOKOT S TAB PO SCH (10:34)
[2020-08-06] MEDS: ENOXAPARIN 40MG/0.4ML SYRINGE (J1650 PER 10MG) SC SCH (10:34)
[2020-08-06] MEDS: PANTOPRAZOLE 40MG VIAL (C9113 PER 1) IV SCH (10:34)
[2020-08-06] MEDS ORDERED: PERCOCET PO (11:18)
--- NOTE | 2020-08-06 11:21 | DS.PDOC ---
Discharge Summary General Date of Admission Aug 03, 2020 at 09:17 Date of Discharge 08/06/20 Attending Physician: CHERELLE REZA MD Discharge Summary PROCEDURES PERFORMED DURING STAY: Laparoscopic lysis of adhesion, excision of umbilicus, scar and seroma capsule, fascia and mesh, primary closure of umbilical/incisional hernia. ADMITTING DIAGNOSES: 1. abdominal pain secondary to scar, recurrent nonresolving seroma, possible mesh infection 2. morbid obesity with BMI 61.9 kg/m2. DISCHARGE DIAGNOSES: 1. abdominal pain secondary to scar, recurrent nonresolving seroma, possible mesh infection s/p exxcision. 2. morbid obesity with BMI 61.9 kg/m2. COMPLICATIONS/CHIEF COMPLAINT: Recurrent Seroma Abdomen, Possible Mesh Infection. HISTORY OF PRESENT ILLNESS: Patient was brought in electively for planned excision of the hardened soft tissue, recurrent seroma and with suspicion of possibly chronically infected mesh. He had a prior laparoscopic umbilical hernia repair in an IPOM plus fashion in 2019 with continued problems of abdominal pain at the surgical site accompanied with recurrent seroma, hardening of the soft tissues underneath the umbilicus . HOSPITAL COURSE: Patient underwent planned surgery. Primary fascial closure with a double loop PDS was done and no mesh was placed. He was stable throughout the procedure. I left a Jorge-Renner drain in subcutaneous tissue to drain what I expect to be postoperative seroma at the site of the surgery. His pain was noted to be adequately controlled. He was tolerating regular diet. On the following day he was slightly concerned that he has not had any bowel movement since about 2 days from the surgery. He was given a dose of magnesium citrate with the intended effect and felt better. His drain output was monitored. This was serosanguineous and draining 40 mL on the first day but 180 mL on the second day. This was placed. I saw him in the morning of discharge and he felt more comfortable. He was subsequently discharged home with a drain would plan on removing the drain week after in my clinic. He was tolerating regular food and had 4 bowel movements the day prior. He reports he is passing flatus. DISCHARGE MEDICATIONS: Please see below. ALLERGIES: Please see below. PHYSICAL EXAMINATION ON DISCHARGE: VITAL SIGNS: Please see below. GENERAL: Comfortable in appearance, he was sitting on the sofa when I entered the room. HEENT: Normocephalic, atraumatic, lips and mucosa appear moist and hydrated NECK: Short neck CARDIOVASCULAR EXAMINATION: Regular heart rate and rhythm without murmurs RESPIRATORY EXAMINATION: Clear breath sounds auscultation bilaterally without wheezing ABDOMINAL EXAMINATION: Minimally distended, markedly obese. He has a midline incision where his umbilicus was which is clean and dry without any drainage. Gonzalez are in place. He has a Jorge-Renner drain coming inferior to this to the left side which is putting out light pink serosanguineous fluid. Mildly uncomfortable on deep palpation just around the area. He had 2 other laparoscopic port sites in the left side which are closed with gonzalez EXTREMITIES: No significant edema NEUROLOGICAL EXAMINATION: Awake, alert and oriented cooperative LABORATORY DATA: Please see below. IMAGING: None PROGNOSIS: Good. ACTIVITY: Light activity until reevaluated. DIET: As tolerated DISCHARGE PLAN: Patient will be discharged home in the drain. He will see me in a week's time to evaluate for drain removal DISPOSITION: . DISCHARGE INSTRUCTIONS: 1. As above. 2. Record drain output report in character of drainage changes. ITEMS TO FOLLOWUP ON ON OUTPATIENT: 1. Drain output. 2. Pathology results 3. Microbiology result is noted and this is showing growth of Staphylococcus Caprae DISCHARGE CONDITION: Stable. TIME SPENT ON DISCHARGE: Greater than 30 minutes. Vital Signs/I&Os Vital Signs Date Time Temp Pulse Resp B/P (MAP) Pulse Ox O2 Delivery O2 Flow Rate FiO2 08/06/20 11:13 20 08/06/20 06:04 Room Air 08/06/20 06:00 98.3 69 159/89 (112) 98 08/04/20 00:24 2.0 I&O- Last 24 Hours up to 6 AM 08/06/20 06:00 Intake Total 3445 ml Output Total 740 ml Balance 2705 ml Microbiology Microbiology 08/03/20 Gram Stain - Final, Complete 08/03/20 Wound Culture - Final, Complete Staphylococcus Caprae 08/03/20 Anaerobic Culture - Final, Complete Discharge Medications Scheduled Pantoprazole Sodium (Pantoprazole Sodium) 40 Mg Tablet.dr, 40 MG PO QHS, (Reported) Scheduled PRN Ondansetron HCl (Ondansetron HCl) 4 Mg Tablet, 4 MG PO Q6H PRN for NAUSEA OR VOMITING, (Reported) Oxycodone HCl/Acetaminophen (Oxycodone-Acetaminophen 5-325) 1 Each Tablet, 1-2 TABS PO Q4H PRN for PAIN, (Reported) Allergies Coded Allergies: No Known Allergies (Unverified , 08/03/20) CHERELLE REZA MD Aug 06, 2020 11:21
[2020-08-06] MEDS: PERCOCET 5MG/325MG TAB PO PRN (15:00)
== END 2020-08-06 15:25 | disposition home or self-care (01) | DRG 711 ==
LOC: M OR 09:17 → M MSPAV 17:54
PROVIDERS: ADMIT Surgery; ATTEND Surgery
PROC: 0DP Gastrointestinal System, Removal (ICD-10-PCS; 2020-08-03)
PROC: 0DNU4ZZ Release Omentum, Percutaneous Endoscopic Approach (ICD-10-PCS; principal; 2020-08-03 11:00)
DX: T85.79XA Infection and inflammatory reaction due to other internal prosthetic devices, implants and grafts, initial encounter (principal); Z68.44 Body mass index [BMI] 60.0-69.9, adult; E66.01 Morbid (severe) obesity due to excess calories; K91.872 Postprocedural seroma of a digestive system organ or structure following a digestive system procedure; Y83.2 Surgical operation with anastomosis, bypass or graft as the cause of abnormal reaction of the patient, or of later complication, without mention of misadventure at the time of the procedure

== ENCOUNTER 2020-08-12 00:01 | Inpatient (IN) | payer OTHER ==
[~2020-08-12] VITALS: Ht 162.6 cm; Wt 158.9 kg
[~2020-08-12 00:01] MED LIST changes: -AMIT10TA PO; +AMIT10TA7 PO; -CelecoXIB (CeleBREX) 100 MG CAP PO ONE; -LR 1,000 ML IV ONE; +PERCOCET PO; -ceFAZolin SOD 1 GM in D5W MINI-BAG PLUS 50 ML IV ONE; -ceFAZolin SOD 2 GM in IV 1 EA IV ONE
--- OUTSIDE RECORDS SUMMARY | 2020-08-12 00:05 | CCD | Continuity of Care Document ---
Author Author Bud YUSUF MD Organization Unknown Address [address] [facility] [address] [place] [address] Phone [phone] Care Team Providers Care Junior Project Manager Name Role Phone Emma Patel AUTM David Valencia M.D. AUTM [phone] AUTM Unavailable Sdio AUTM [phone] Problems Active Problems Provider Date Essential hypertension William Yusuf MD Onset: 019 Social History Type Date Description Comments Sex Unknown ETOH Use Sociable Recreational Drug Use Denies Drug Use Tobacco Use Start: Unknown 1 PPD Allergies, Adverse Reactions, Alerts Description No Known Drug Allergies Medications Active Medications SIG Qnty Indications Ordering Provide r Date Zofran 4mg Tablets take one every 6 hours as needed for nausea 30tabs William Yusuf MD 07/14 Percocet 5-325mg Tablets 1-2 tab by mouth every 6 hours as needed for pain 30tabs William pedro MD 08/09/2020 Abdominal Binder/Elastic/3X-Large Elast 3X Misc use as directed for abdominal support 1units L76.34 Gabo Yusuf MD 03/13/2020 Carafate 1gm Tablets o ne gm twice a day 60tabs R11.0 William Yusuf MD 10/04/[address] 1 by mouth every day 30tabs William Yusuf MD 9 Amitriptyline HCL 10mg Tablets take once daily every night at bedtime 30tabs William Yusuf MD 06/02/2019 History Medications Percocet 5-325mg Tablets 1 tab by mouth tid prn pain 20tabs William Yusuf MD 0 - 06/13/2020 Immunizations Description No Information Available Vital Signs Date Vital Result Comment 08/09/2020 1:05pm BP Systolic 138 mmHg BP Diastolic 87 mmHg Heart Rate 102 /min Height 65 inches 5'5" Weight 356.12 lb BMI (Body Mass Index) 59.3 kg/m2 [place] Body Weight 136 lb Weight 161.538 kg BSA (Body Surface Area) 2.53 m2 06/26/2020 8:37am BP Systolic 151 mmHg BP Diastolic 84 mmHg Heart Rate 74 /min Height 65 inches 5'5" Weight 381.12 lb BMI (Body Mass Index) 63.4 kg/m2 [place] Body Weight 136 lb Weight 172.878 kg BSA (Body Surface Area) 2.60 m2 Results Test Acquired Date Facility Test Result H/L Range Note Abscess Culture And Gram Stain 05/30/2020 [facility] [address] [place] [address] [phone] Gram Stain (SEE NOTE) Normal 1 Abscess Culture <SEE NOTE> 2 Laboratory test finding 05/30/2020 [facility] Main Lab [address] [place] [address] [phone] Anaerobic Culture <SEE NOTE> [address] Wound Culture And Gram St 05/22/2020 [facility] Main Lab [address] [place] [address] [phone] Gram Stain (SEE NOTE) Normal 4 Wound Culture <SEE NOTE> 5 Abscess Culture And Gram Stain 03/06/2020 [facility] Main Lab [address] [place] [address] [phone] Gram Stain (SEE NOTE) Normal 6 Abscess Culture <SEE NOTE> 7 1 MANY RBCS NO ORGANISMS SEEN 2 [...] NOTES (eCW and Medent). NO GROWTH AEROBICALLY Procedures Date Code Description Status 04/17/2020 55137 Fine Needle Aspiration W/O Imag Completed Medical Devices Description No Information Available Encounters Type Date Location Provider Dx Diagnosis Office Visit 06/26/2020 9:15a [facility] Gabo Yusuf MD L76.34 Postproc seroma of skin, sub cu following other procedure R10.33 Periumbilical pain E66.01 Morbid (severe) obesity due to excess calories Office Visit 06/13/2020 10:00a [facility] Romeo hollins NP L76.34 Postproc seroma of skin, subcu following other procedure Z48.89 Encounter for other specifie d surgical aftercare Office Visit 06/05/2020 9:45a [facility] Gabo Yusuf MD L76.34 Postproc seroma of skin, sub cu following other procedure E66.01 Morbid (severe) obesity due to excess calories K42.9 Umbilical hernia without obs truction or gangrene Office Visit 05/22/2020 3:15p [facility] Gabo Yusuf MD L76.34 Postproc seroma of skin, sub cu following other procedure R10.33 Periumbilical pain E66.01 Morbid (severe) obesity due to excess calories Office Visit 04/17/2020 10:30a [facility] Gabo Yusuf MD L76.34 Postproc seroma of skin, sub cu following other procedure R10.33 Periumbilical pain E66.01 Morbid (severe) obesity due to excess calories Office Visit 03/13/2020 10:30a [facility] Romeo hollins NP L76.34 Postproc seroma of skin, subcu following other procedure Office Visit 02/28/2020 1:00p [facility] Romeo hollins, GUNNAR L76.34 Postproc seroma of skin, subcu following other procedure R10.33 Periumbilical pain Office Visit 02/13/2020 10:00a [facility] Romeo hollins, GUNNAR L76.34 Postproc seroma of skin, subcu following other procedure R10.33 Periumbilical pain Assessments Date Code Description Provider 06/26/2020 L76.34 [...] specified santizo rgical aftercare Romeo Joe NP 06/05/2020 L76.34 Postprocedural serom a of skin and subcutaneous tissue following other procedure William Yusuf MD 06/05/2020 E66.01 Morbid (severe) obesity due to e xcess calories William Yusuf MD 06/05/2020 K42.9 Umbilical hernia without obstruc tion or gangrene William Yusuf MD 05/22/2020 L76.34 Postprocedural serom a of skin and subcutaneous tissue following other procedure William Yusuf MD 05/22/2020 R10.33 Periumbilical pain William Hutson MD 05/22/2020 E66.01 Morbid (severe) obesity due to e xcess calories William Yusuf MD 04/17/2020 L76.34 Postprocedural serom a of skin and subcutaneous tissue following other procedure William Yusuf MD 04/17/2020 R10.33 Periumbilical pain William Hutson MD 04/17/2020 E66.01 Morbid (severe) obesity due to e xcess calories William Yusuf MD 03/13/2020 L76.34 Postprocedural serom a of skin and subcutaneous tissue following other procedure Romeo Joe NP 02/28/2020 L76.34 Postprocedural serom a of skin and subcutaneous tissue following other procedure Romeo Joe NP 02/28/2020 R10.33 Periumbilical pain Romeo Joe NP 02/13/2020 L76.34 Postprocedural serom a of skin and subcutaneous tissue following other procedure Romeo oJe NP 02/13/2020 R10.33 Periumbilical pain Romeo Joe NP Plan of Treatment Future Appointment(s):* 08/14/2020 11:20 am - William Yusuf MD at [facility] 06/26/2020 - William Yusuf MD* L76.34 Postprocedural seroma of skin and subcutaneous tissue following other procedure * R10.33 Periumbilical pain* Comments:* Patient continues to have severe pain related to the complex recurrent seroma at the level of his prior umbilical hernia repair. He does have this hardness above the umbilicus roughly about 3 or 4 cm in size which I think probably is the intra-abdominal mesh that is getting pushed out with a failed hernia repair. The hernia is not apparent because the mesh itself is lodged within the hernia cavity. I tried multiple ways to deal with this nonoperatively but so far has failed. I also brought him to the operating room to excise the hardened seroma capsule to try to resolve the seroma but the collection promptly returned. During that pr ocedure, I could feel the mesh at the base of the cavity. None of our cultures from the multiple aspirations have grown anything but I suspect the mesh maybe being extruded (thus hernia recurring or at least being symptomatic) or worse despite negative cultures the mesh maybe subclinically or chronically infected; thus only recourse is to remove the mesh. I propose come back to the operating room, start with laparoscopy to further evaluate the internal configuration of the hernia and the mesh as well as lysis any solid lesions that could possibly be adhered to the mesh. We will then explore the wound, draining the seroma and remove the capsular wall of the seroma and remove the mesh. Would then need to figure out how to close the abdominal wound. I would prefer to close this primarily. In given his morbid obesity and likely the free forming other seroma may need placement of a wound VAC. I told him also he may lose the belly button with the removal of the mesh. If left open for secondary healing with a wound VAC may take months to heal. I am sure that he will recurred his hernia. We have talked about him losing his weight in trying to get bariatric surgery which she has previously attempted. He will need a referral back to the bariatric surgeons. * E66.01 Morbid (severe) obesity due to excess calories Functional Status Description No Information Available Mental Status Description No Information Available Referrals Description No Information Available
--- OUTSIDE RECORDS SUMMARY | 2020-08-12 00:06 | CCD ---
Author Author [facility] Address Unknown Phone Unavailable Care Team Providers Care Labor Service Representative Name Role Phone Ermelinda REZA MD Unavailable [...] Unavailable Ermelinda REZA MD Unavailable Unavailable Marina BRAY DPM Unavailable Unavailable Marina BRAY DPM Unavailable Unavailable Marina BRAY DPM Unavailable Unavailable Marina BRAY DPM Unavailable Unavailable Marina BRAY DPM Unavailable Unavailable Marina BRAY DPM Unavailable Unavailable Marina BRAY DPM Unavailable Unavailable KATARINA R POLO DPM Unavailable Unavailable KATARINA R POLO DPM [...] Unavailable Unavailable Cynthia Valencia MD Unavailable Unavailable Heath, Olimpia Romeo Unavailable Unavailable Paris, Olimpia Romeo Unavailable Unavailable Paris, Olimpia Romeo Unavailable Unavailable Heath, Olimpia Romeo Unavailable Unavailable Paris, Olimpia Romeo Unavailable Unavailable Heath, Olimpia Romeo Unavailable Unavailable Paris, Olimpia Romeo Unavailable Unavailable Heath, Olimpia Romeo Unavailable Unavailable Cynthia Valencia MD [...] Unavailable Cynthia Valencia MD Unavailable Unavailable Cynthia Vlaencia MD Unavailable Unavailable Cynthia Valencia MD Unavailable Unavailable Cynthia Valencia MD Unavailable Unavailable Cynthia Valencia MD Unavailable Unavailable Cynthia Vlaencia MD Unavailable Unavailable Cynthia Valencia MD Unavailable [...] Unavailable Unavailable Cynthia Valencia MD Unavailable Unavailable Cynthai Valencia MD Unavailable Unavailable Cynthia Valencia MD Unavailable Unavailable Cynthia Valencia MD Unavailable Unavailable Emma Patel REINFORCED IRONWORKER REINFORCED IRONWORKER Unavailable Unavailable LETTIERE, A COURTNEY PA Unavailable Unavailable LETTIERE, A COURTNEY PA Unavailable Unavailable LETTIERE, A COURTNEY PA Unavailable Unavailable LETTIERE, A COURTNEY PA Unavailable Unavailable LETTIERE, A COURTNEY PA Unavailable Unavailable LETTIERE, A COURTNEY PA Unavailable Unavailable LETTIERE, A COURTNEY PA Unavailable Unavailable LETTIERE, A COURTNEY PA Unavailable Unavailable LETTIERE, A COURTNEY PA Unavailable Unavailable LETTIERE, A COURNTEY PA Unavailable Unavailable LETTIERE, A COURTNEY PA [...] is protected by Article 27-F of the [facility] Public Health law. If you continue you may have access to information: Regarding HIV / AIDS; Provided by facilities licensed or operated by the [facility] Office of Mental Health; or Provided by the [facility] Office for People With Developmental Disabilities. If such information is present, then the following [facility] mandated warning applies: This information has been [...] law may result in a fine or mcfp sentence or both. A general authorization for the release of medical or other information is NOT sufficient authorization for further disc losure. Allergies and Adverse Reactions Type Description Substance Reaction Status Data Source(s ) Allergy to substance Allergy to substance Allergy to substance FREIDA ([facility]) Family History Family Member Name Family Member Gender Family Member Status Date o f Status Description Data Source(s) Unknown Male Problem MEDENT ([facility]) Unknown Male Problem MEDENT ([facility]) Unknown Male Problem MEDENT ([facility]) () Encounters Encounter Providers Location Date Indications Data Source(s ) David Valencia MD: [address] [place] [address] [id number], Ph. Attender: David Valencia MD [facility] Medical 07/26/2020 12:00:00 AM EST FREIDA ([facility]) Outpatient Attender: POLO BRAY [facility] Office 06/12 12:00:00 PM EST MEDENT ([facility] Outpatient Attender: CHERELLE Kapadia/[place]as/ Reindl 06/26/2020 08:15:00 AM EST MEDENT ([facility] Outpatient Attender: Romeo Kapadia/[place]as/Reindl 06/13/2020 09:00:00 AM EST MEDENT ([facility]) Outpatient Attender: CHERELLE Kapadia/[place]ikas/ Reindl 06/05/2020 08:45:00 AM EST MEDENT ([facility]) Outpatient Attender: CHERELLE Kapadia/[place]as/ Reindl 05/22/2020 02:15:00 PM EST MEDENT ([facility]) [facility]: [facility] [place] [facility] 04/12 03:00:00 PM EDT MEDENT ([facility] Outpatient Attender: CHERELLE Kapadia/[place]/Vikas/ Reindl 04/17/2020 10:30:00 AM EDT MEDENT ([facility]) Outpatient Attender: David Valencia MD FP 04/06/2020 06:10:00 PM EDT [facility] Outpatient Attender: COURTNEY moreno 03/30/2020 01:10:00 PM EDT MEDENT ([facility]) Outpatient Attender: David Valencia MD FP 03/23/2020 10:40:00 AM EDT [facility] Office Visit Attender: Romeo Kapadia/[place]/Vikas/Reindl 03/13/2020 10:30:00 AM EDT MEDENT ([facility]) Office Visit Attender: Romeo Kapadia/[place]/Vikas/Reindl 02/28/2020 01:00:00 PM EDT MEDENT ([facility]) Outpatient Attender: Romeo Kapadia/[place]/Vikas/Reindl 02/13/2020 10:00:00 AM EDT MEDENT ([facility]) Outpatient Attender: David Valencia MD FP 02/06/2020 12:41:00 PM EDT [facility] Outpatient Attender: Romeo Kapadia/[place]/Vikas/Reindl 02/02/2020 09:00:00 AM EDT MEDENT ([facility]) Outpatient Attender: David [...] EDT [facility] Outpatient Attender: CHERELLE Kapadia/[place]/Vikas/ Reindl 12/20/2019 11:20:00 AM EDT MEDENT ([facility]) Outpatient Attender: David Valencia MD FP 12/07/2019 01:47:00 PM EDT [facility] Outpatient Attender: David Valencia MD FP 12/02/2019 02:53:00 PM EDT [facility] Outpatient Attender: David CORTEZ 12/02/2019 02:27:01 PM EDT [facility] [...] Outpatient Attender: David Valencia MD FP 12/02/2019 01:03:01 PM EDT [facility] Outpatient Attender: David Valencia MD FP 11/30/2019 09:01:03 PM EDT [facility] Outpatient Attender: David Valencia MD FP 11/30/2019 09:51:11 AM EDT [facility] Outpatient Attender: CHERELLE Kapadia/[place]/Vikas/ Reindl 11/15/2019 10:20:00 AM EDT MEDENT ([facility] Outpatient Attender: David Valencia MD 11/09/2019 04:35:00 PM EDT [facility] Outpatient Attender: CHERELLE Kapadia/[place]/Vikas/ Reindl 10/18/2019 11:30:00 AM EDT MEDENT ([facility]) Outpatient Attender: CHERELLE Kapadia/[place]/Vikas/ Reindl 10/04/2019 10:20:00 AM EDT MEDENT ([facility] Outpatient 09/01/2019 01:24:00 PM EST [facility] Outpatient 08/23/2019 01:31:00 PM EST [facility] Outpatient Attender: CHERELLE Kapadia/[place]/Vikas/ Reindl 08/23/2019 10:15:00 AM EST [facility]patient 08/12/2019 01:03:00 PM [facility] Out[facility] Attender: JUAN JOSE CORTEZ 07/06/2019 09:01:07 P M EST [facility] Medications Medication Brand Name Start Date Product Form Dose Route Admi nistrative Instructions Pharmacy Instructions Status Indications Reaction Description Data Source(s) Acetaminophen 325 MG / Oxycodone Hydrochloride 5 MG Or al Tablet [Percocet] Percocet 08/09/2020 12:00:00 AM EST ORAL active MEDENT ([facility], ) Ondansetron 4 MG Oral Tablet [Zofran] Zofran 08/09/2020 12:00:00 AM EST active MEDENT ([facility], ) ammonium lactate 120 MG/ML Topical Cream Ammonium Lactate 06/29/2020 12:00:00 AM EST active MEDENT ([facility] Urea 400 MG/ML Topical Cream Urea 04/24/2020 12:00:00 AM EDT active MEDENT ([facility] Acetaminophen 325 MG / Oxycodone Hydrochloride 5 MG Or al Tablet [Percocet] Percocet 04/17/2020 12:00:00 AM EDT ORAL completed MEDENT ([facility], ) Cyclobenzaprine hydrochloride 10 MG Oral Tablet Cyclobenzapr ine HCL 03/30/2020 12:00:00 AM EDT active M EDENT ([facility], [facility]) No Active Medications 03/30/2020 12:00:00 AM EDT completed MEDENT ([facility], [facility]) Ibuprofen 800 MG Oral Tablet Ibuprofen 03/30/2020 12:00:00 AM EDT active MEDENT ([facility]) Abdominal Binder/Elastic/3X-Large 03/13/2020 12:00:00 AM EDT active MEDENT ([facility], ) Acetaminophen 325 MG / Oxycodone Hydrochloride 5 MG Or al Tablet [Percocet] Percocet 01/18/2020 12:00:00 AM EDT ORAL completed MEDENT ([facility], ) Sucralfate 1000 MG Oral Tablet [Carafate] Carafate 10/04/2019 1 2:00:00 AM EDT active MEDENT ([facility], ) meloxicam 7.5 MG Oral Tablet Meloxicam 08/23/2019 12:00:00 AM EST active MEDENT ([facility], ) pantoprazole 40 MG Delayed Release Oral Tablet [Protonix] Pr otonix 07/07/2019 12:00:00 AM EST ORAL active M EDENT ([facility], ) Ibuprofen 600 MG Oral Tablet Ibuprofen 04/12/2019 12:00:00 AM EDT ORAL completed MEDENT ([facility], ) Acetaminophen 325 MG / Oxycodone Hydrochloride 5 MG Or al Tablet [Percocet] Percocet 04/12/2019 12:00:00 AM EDT ORAL completed MEDENT ([facility], ) meloxicam 7.5 MG Oral Tablet meloxicam 7 .5 mg tablet TAKE ONE TABLET BY MOUTH TWICE DAILY meloxicam 7.5 mg tablet TAKE ONE TABLET BY MOUTH TWICE DAILY completed meloxicam 7.5 MG Ora l Tablet FREIDA ([facility]) ammonium lactate 120 MG/ML Topical Cream ammonium lactate 12 % topical cream APPLY TOPICALLY TO FEET ONCE DAILY ammonium lactate 12 % topical cream APPL Y TOPICALLY TO FEET ONCE DAILY completed ammonium lactate 120 MG/ML Topical Cream FREIDA ([facility]) chlorhexidine gluconate 1.2 MG/ML Mouthw crispin chlorhexidine gluconate 0.12 % mouthwash RINSE AND SPIT ONE CAPFUL BY MOUTH THREE TIMES DAILY BEGINNING TOMORROW chlorhexidine gluconate 0.12 % mouthwash RINSE AND SPIT ONE CAPFUL BY MOUTH THREE TIMES DAILY BEGINNING TOMORROW completed chlorhexidine gluconate 1.2 MG/ML Mouthwash FREIDA ([facility]) Acetaminophen 325 MG / Oxycodone Hydroch [...] / oxycodone hydrochloride 5 MG Oral Tablet FREIDA ([facility]) Amoxicillin 875 MG / Clavulanate 125 MG Oral Tablet amoxicillin 875 mg-potassium clavulanate 125 mg tablet TAKE ONE TABLET BY MOUTH TWICE DAILY amoxicillin 875 mg-potassium clavulanate 125 mg tablet TAKE ONE TABLET BY MOUTH TWICE DAILY completed amoxicillin 875 MG / c lavulanate 125 MG Oral Tablet FREIDA ([facility]) Ibuprofen 600 MG Oral Tablet ibuprofen 6 00 mg tablet TAKE ONE TABLET BY MOUTH THREE TIMES DAILY WITH FOOD ibuprofen 600 mg tablet TAKE ONE TABLET BY MOUTH THREE TIMES DAILY WITH FOOD completed ibuprofen 600 MG Oral Tablet FREIDA ([facility]) Cyclobenzaprine hydrochloride 10 MG Oral Tablet cyclobenzaprine 10 mg tablet TAKE ONE TABLET BY MOUTH EVERY EIGHT HOURS NEEDED cyclobenzaprine 10 mg tablet TAKE ONE TABLET BY MOUTH EVERY EIGHT HOURS NEEDED completed cyclobenzaprine hydrochloride 10 MG Oral Tablet [place] ([facility]) Sucralfate 1000 MG Oral Tablet sucralfat e 1 gram tablet TAKE ONE TABLET BY MOUTH TWICE DAILY sucralfate 1 gram tablet TAKE ONE TABLET BY MOUTH TWICE DAILY completed sucralfate 1000 MG Ora l Tablet [place] ([facility]) Amoxicillin 500 MG Oral Capsule amoxicil sulma 500 mg capsule TAKE ONE CAPSULE BY MOUTH EVERY 8 HOURS NEEDED amoxicillin 500 mg capsule TAKE ONE CAPS ULE BY MOUTH EVERY 8 HOURS NEEDED complete d amoxicillin 500 MG Oral Capsule [place] ([facility]) Lidocaine 40 MG/ML Topical Cream lidocai ne 4 % topical cream apply thin layer TO affected AREA ON back EVERY 8 HOURS NEEDED DIRECTED lidocaine 4 % topical cream apply thin layer TO affected AREA ON back EVERY 8 HOURS NEEDED DIRECTED completed lidocaine 40 MG/ML Topical Cream [place] ([facility]) Insurance Providers Payer name Policy type / Coverage type Policy ID Covered republican ID Covered republican's relationship to craft Policy Craft Plan Information FORMERLY [facility] COMMUNITY PLAN [facility] [id number] SP [id number] [facility] O [id number] S [id number] Medicaid S [id number] S [id number] Managed Care [facility] Community Plan P [id number] S [id number] [facility] [id number] SP [id number] [facility] SP 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 [id number] SP [id number] [facility] [id number] SP [id number] Medicaid S [id number] S [id number] Managed Care - [facility] Community Plan P [id number] S [id number] Self Pay P [id number] S [id number] MEDICAID [id number] SP [id number] SELF PAY ONLY [id number] SP [id number] [facility] Communty Plan Medicaid [id number] Self [id number] [facility] COMMUNTY PLAN [id number] 18 [id number] UN COMMUNITY PLAN XIX [id number] 18 [id number] Self Pay P UNAVAILABLE S UNAVAILA BLE Managed Care - Community Plan [facility] P [id number] S [id number] Medicaid S [id number] S [id number] Managed Care - Community Plan [facility] P [id number] S [id number] Medicaid S [id number] S [id number] [facility] Communty Plan Medicaid [id number] Self [id number] Managed Care - Community Plan [facility] P [id number] S [id number] [facility] Communty Plan Medicaid [id number] Self [id number] [facility] Community Plan Commercial [id number] Self [id number] [facility] Neel/MCR Health Maintenance Organization (HMO) [id number] Self [id number] Medicaid P [id number] S [id number] MEDICAID M [id number] S [id number] [employer] [place] 306/806 [id number] SP [id number] [place] [place] 306/806 [id number] SP [id number] [employer] BCBS B [id number] S [id number] [place] [place] 306/806 [id number] SELF PAY ONLY [id number] SP [id number] [id number] COMMUNITY PLAN [facility] [id number] SP [id number] [facility] Hmo Commercial [id number] Self [id number] [facility] Hmo Commercial Self D Managed Care [facility] P [id number] S [id number] Problems, Conditions, and Diagnoses Code Display Name Description Problem Type Effective Dates Data Source(s) [id number] Anemia Anemia Problem 07/26/2020 12:00:00 AM ES T FREIDA ([facility]) Corns and callosities Corns and callosities Problem 05/08/2020 12:00:00 AM EDT MEDENT ([facility] [id number] Pronation Pronation Problem 05/08/2020 12:00:00 AM ED T MEDENT ([facility] [id number] Pronation Pronation Problem 05/08/2020 12:00:00 AM ED T MEDENT ([facility] [id number] Plantar fascial fibromatosis Plantar fascial fibromato sis Problem 05/08/2020 12:00:00 AM EDT MEDENT ([facility] Surgeries/Procedures Procedure Description Date Indications Data Source(s) Fine Needle Aspiration W/O Imag 04/17/2020 12:00:00 AM EDT MEDENT ([facility], ) Therapeutic, Prophylactic Or Diagnostic Injection Subq/Im 03/30/2020 12:00:00 AM EDT MEDENT ([facility]) Excise Benign Lesion > 4CM Trunk/Arm/Leg 01/20/2020 12:00:00 AM EDT MEDENT ([facility], ) I & D Hematoma 07/19/2019 12:00:00 AM EST MEDENT ([facility], ) Results ID Date Data Source [id number] 07/29/2020 09:00:00 AM EST [facility] Name Value Range Interpretation Code Description Data Stephanie rce(s) Supporting Document(s) SARS coronavirus 2 RNA Not Detected [facility] This lab was ordered by [facility] and reported by [facility]. ID Date Data Source [id number] 06/05/2020 09:37:00 PM EST FREIDA ([facility]) Name Value Range Interpretation Code Description Data Stephanie rce(s) Supporting Document(s) lipase 90 U/L 73-393 normal Lipase FREIDA ([facility]) ID Date Data Source [id number] 06/05/2020 09:37:00 PM EST FREIDA ([facility]) Name Value Range Interpretation Code Description Data Stephanie rce(s) Supporting Document(s) blood urea nitrogen 11 mg/dL 7-18 normal Blood Urea Nitro gen FREIDA ([facility]) glucose, fasting 84 mg/dL 70-100 normal Glucose, Fasting AT [facility]) potassium serum 4.2 mEq/L 3.5-5.1 normal Potassium Serum ATHE ([facility]) creatinine for GFR 0.96 mg/dL 0.70-1.30 normal Creatinine for GF R [place] ([facility]) sodium level 140 mEq/L 136-145 normal Sodium Level FREIDA ([facility]) glomerular filtration rate > 60.0 >60 normal Glomerula r Filtration Rate FREIDA ([facility]) carbon dioxide level 30 mEq/L 21-32 normal Carbon Dioxide Level [place] ([facility]) chloride level 103 mEq/L 98-107 normal Chloride Level [place] ([facility]) calcium level 8.8 mg/dL 8.5-10.1 normal Calcium Level [place] ( [facility]) anion gap 7 mEq/L 8-16 Below low normal Anion Gap [place] ( [facility]) ID Date Data Source [id number] 06/05/2020 09:37:00 PM EST FREIDA ([facility]) Name Value Range Interpretation Code Description Data Stephanie rce(s) Supporting Document(s) AST/SGOT 21 U/L 7-37 normal AST/SGOT F[facility]IDA ([facility]) ALT/SGPT 29 U/L 12-78 normal ALT/SGPT F[facility]IDA ([facility]) bilirubin,direct < 0.1 0.0-0.2 normal Bilirubin,direct AT [facility] ([facility]) bilirubin,total 0.3 mg/dL 0.2-1.0 normal Bilirubin,total ATHE [facility]) alkaline phosphatase 132 U/L 45-117 Above high normal Alkaline Phosphatase [place] ([facility]) total protein 7.5 gm/dL 6.4-8.2 normal Total Protein FREIDA ( [facility]) albumin/globulin ratio normal Albumin/globu sulma Ratio FREIDA ([facility]) albumin 3.5 gm/dL 3.2-5.2 normal Albumin FREIDA ([facility]) ID Date Data Source [id number] 06/05/2020 09:37:00 PM EST FREIDA ([facility]) Name Value Range Interpretation Code Description Data Stephanie rce(s) Supporting Document(s) white blood count 9.9 10 4.0-10.0 normal White Blood Count F[facility]IDA ([facility]) red blood count 5.01 10 4.30-6.10 normal Red Blood Count ATHE ([facility]) hemoglobin 12.4 g/dL 13.5-17.5 Below low normal Hemoglobin FREIDA ( [facility]) mean corpuscular volume 80.8 fL 80.0-96.0 normal Mean Corpusc ular Volume FREIDA ([facility]) mean corpuscular hemoglobin 24.8 pg 27.0-33.0 Below low nor mal Mean Corpuscular Hemoglobin FREIDA ([facility]) hematocrit 40.5 % 42.0-52.0 Below low normal Hematocrit FREIDA ( [facility]) mean corpuscular HGB conc 30.6 g/dL 32.0-36.5 Below low luis felipe l Mean Corpuscular HGB Conc FREIDA ([facility]) red cell distribution width 15.3 % 11.5-14.5 Above high no rmal Red Cell Distribution Width FREIDA ([facility]) platelet count, automated 168 10 150-450 normal Platelet C ount, Automated FREIDA ([facility]) mono % 5.1 % 0.0-5.0 Above high normal [place] % FREIDA ([facility]) neutrophils % 68.0 % 36.0-66.0 Above high normal Neutrophils % A THENA ([facility]) lymph % 23.4 % 24.0-44.0 Below low normal Lymph % FREIDA ( [facility]) baso % 0.3 % 0.0-1.0 normal Baso % [place] ([facility]) immature granulocyte % 0.4 % 0-3.0 normal Immature Gran ulocyte % FREIDA ([facility]) eos % 2.8 % 0.0-3.0 normal Eos % [place] ([facility]) neutrophils # 6.8 10 1.5-8.5 normal Neutrophils # FREIDA ( [facility]) nucleated red blood cell % 0.0 % 0-0 normal Nucleated Red Blood Cell % FREIDA ([facility]) lymph # 2.3 10 1.5-5.0 normal Lymph # FREIDA ([facility]) mono # 0.5 10 0.0-0.8 normal [place] # FREIDA ([facility]) baso # 0.0 10 0.0-0.2 normal Baso # FREIDA ([facility]) eos # 0.3 10 0.0-0.5 normal Eos # FREIDA ([facility]) ID Date Data Source [id number] 05/30/2020 09:00:00 AM EST [facility] ([facility], ) Name Value Range Interpretation Code Description Data Stephanie rce(s) Supporting Document(s) Bacteria identified in Unspecified specimen by Anaerob e culture Laboratory [facility] ([facility], ) If anaerobic or aerobic growth is detected within the next 7-21 days, an addendum will follow. . . FULL REPORT IN LAB NOTES (eCW and Medent). NO GROWTH ANAEROBICALLY ID Date Data Source [id number] 05/30/2020 09:00:00 AM EST MEDENT ([facility], ) Name Value Range Interpretation Code Description Data Stephanie rce(s) Supporting Document(s) Gram Stain Laboratory test result Normal (applies to non-n umeric results) [facility]) MANY RBCS NO ORGANISMS SEEN Abscess Culture Laboratory test result [facility] ([facility]) If aerobic or anaerobic growth is detected within the next 7-21 days, an addendum will follow. . . FULL REPORT IN LAB NOTES ([facility] NO GROWTH AEROBICALLY ID Date Data Source [id number] 05/30/2020 09:00:00 AM EST [facility] Name Value Range Interpretation Code Description Data Stephanie rce(s) Supporting Document(s) ID Date Data Source [id number] 05/30/2020 09:00:00 AM EST FREIDA [facility]) Name Value Range Interpretation Code Description Data Stephanie rce(s) Supporting Document(s) ID Date Data Source [id number] 05/30/2020 09:00:00 AM EST FREIDA [facility]) Name Value Range Interpretation Code Description Data Stephanie rce(s) Supporting Document(s) ID Date Data Source [id number] 05/22/2020 03:39:00 PM EST MEDENT ([facility], ) Name Value Range Interpretation Code Description Data Stephanie rce(s) Supporting Document(s) Gram Stain Laboratory test result Normal (applies to non-n umeric results) [facility]) FEW WBCS FEW RBCS NO ORGANISMS SEEN Wound Culture Laboratory test result [facility] ([facility]) If aerobic or anaerobic growth is detected within the next 7-21 days, an addendum will follow. . . FULL REPORT IN LAB NOTES (eCW and [facility]). NO GROWTH AEROBICALLY ID Date Data Source [id number] 05/16/2020 05:30:00 PM EST FREIDA ([facility]) Name Value Range Interpretation Code Description Data Stephanie rce(s) Supporting Document(s) istat HCT 43.0 % 38.0-51.0 normal Istat [place] ([facility]) istat potassium 4.4 mEq/L 3.5-5.1 normal Istat Potassium ATHE NA ([facility]) istat glucose 87 mg/dL 70-105 normal Istat Glucose [place] ( [facility]) istat chloride 100 mEq/L 98-109 normal Istat Chloride [place] ([facility]) istat sodium 139 mEq/L 136-145 normal Istat Sodium [place] ([facility]) istat Ca++ 4.8 mg/dL 4.5-5.3 normal Istat Ca++ [place] ([facility]) istat BUN 12 mg/dL 8-26 normal Istat BUN [place] ([facility]) istat CO2 29.0 mm/L 23.0-27.0 Above high normal Istat CO2 [place] ([facility]) istat creatinine 1.0 mg/dL 0.6-1.3 normal Istat Creatinine AT [facility] ([facility]) ID Date Data Source [id number] 05/16/2020 05:25:00 PM EST [place] ([facility]) Name Value Range Interpretation Code Description Data Stephanie rce(s) Supporting Document(s) lactic acid sepsis protocol 0.7 mmol/L 0.4-2.0 normal Lactic Acid Sepsis Protocol [place] ([facility]) ID Date Data Source [id number] 05/16/2020 05:24:00 PM EST [place] ([facility]) Name Value Range Interpretation Code Description Data Stephanie rce(s) Supporting Document(s) lipase 76 U/L 73-393 normal Lipase [place] ([facility]) ID Date Data Source [id number] 05/16/2020 05:24:00 PM EST [place] ([facility]) Name Value Range Interpretation Code Description Data Stephanie rce(s) Supporting Document(s) AST/SGOT 18 U/L 7-37 normal AST/SGOT [place] ([facility]) alkaline phosphatase 127 U/L 45-117 Above high normal Alkaline Phosphatase [place] ([facility]) ALT/SGPT 29 U/L 12-78 normal ALT/SGPT [place] ([facility]) bilirubin,direct < 0.1 0.0-0.2 normal Bilirubin,direct AT [facility]) total protein 7.8 gm/dL 6.4-8.2 normal Total Protein [place] ( [facility]) albumin 3.5 gm/dL 3.2-5.2 normal Albumin [place] ([facility]) bilirubin,total 0.2 mg/dL 0.2-1.0 normal Bilirubin,total [place] ([facility]) albumin/globulin ratio normal Albumin/globu sulma Ratio [place] ([facility]) ID Date Data Source [id number] 05/16/2020 05:24:00 PM EST [place] ([facility]) Name Value Range Interpretation Code Description Data Stephanie rce(s) Supporting Document(s) hemoglobin 13.4 g/dL 13.5-17.5 Below low normal Hemoglobin [place] ( [facility]) red blood count 5.36 10 4.30-6.10 normal Red Blood Count [place] NA ([facility]) white blood count 7.6 10 4.0-10.0 normal White Blood Count [place] ([facility]) hematocrit 43.5 % 42.0-52.0 normal Hematocrit [place] ([facility]) mean corpuscular hemoglobin 25.0 pg 27.0-33.0 Below low nor mal Mean Corpuscular Hemoglobin [place] ([facility]) mean corpuscular HGB conc 30.8 g/dL 32.0-36.5 Below low luis felipe l Mean Corpuscular HGB Conc [place] ([facility]) mean corpuscular volume 81.2 fL 80.0-96.0 normal Mean Corpusc ular Volume [place] ([facility]) neutrophils % 66.5 % 36.0-66.0 Above high normal Neutrophils % A THENA ([facility]) platelet count, automated 183 10 150-450 normal Platelet C ount, Automated [place] ([facility]) red cell distribution width 15.2 % 11.5-14.5 Above high no rmal Red Cell Distribution Width [place] ([facility]) mono % 4.2 % 0.0-5.0 normal [place] % [place] ([facility]) eos % 3.8 % 0.0-3.0 Above high normal Eos % [place] ([facility]) baso % 0.4 % 0.0-1.0 normal Baso % [place] ([facility]) lymph % 24.6 % 24.0-44.0 normal Lymph % [place] ([facility]) neutrophils # 5.1 10 1.5-8.5 normal Neutrophils # [place] ( [facility]) lymph # 1.9 10 1.5-5.0 normal Lymph # [place] ([facility]) nucleated red blood cell % 0.0 % 0-0 normal Nucleated Red Blood Cell % [place] ([facility]) immature granulocyte % 0.5 % 0-3.0 normal Immature Gran ulocyte % [place] ([facility]) eos # 0.3 10 0.0-0.5 normal Eos # [place] ([facility]) baso # 0.0 10 0.0-0.2 normal Baso # [place] ([facility]) mono # 0.3 10 0.0-0.8 normal [place] # [place] ([facility]) ID Date Data Source [id number] 03/06/2020 12:55:00 PM EDT [facility] ([facility], ) Name Value Range Interpretation Code Description Data Stephanie rce(s) Supporting Document(s) Gram Stain Laboratory test result Normal (applies to non-n umeric results) [facility] ([facility], ) FEW RBCS NO ORGANISMS SEEN Abscess Culture Laboratory test result [facility] ([facility]) If aerobic or anaerobic growth is detected within the next 7-21 days, an addendum will follow. . . FULL REPORT IN LAB NOTES ([facility] and [facility] NO GROWTH AEROBICALLY ID Date Data Source [id number] 01/20/2020 02:22:00 PM EDT [facility] ([facility], ) Name Value Range Interpretation Code Description Data Stephanie rce(s) Supporting Document(s) Surgical pathology study Laboratory test result [facility] ([facility], ) FINAL DIAGNOSIS Seroma capsule, resection: Irregular saccular [...] 1215 Signed Carmencita Munoz M.D. 01/24/2020 1141 ID Date Data Source [id number] 01/19/2020 08:36:00 AM EDT [facility] ([facility], ) Name Value Range Interpretation Code Description Data Stephanie rce(s) Supporting Document(s) Respiratory Panel Laboratory test result [facility] ([facility], ) This respiratory PCR panel detects Influ sincere [...] - SARS-CoV-2 (COVID19) ID Date Data Source [id number] 01/17/2020 09:50:00 AM EDT [facility] Name Value Range Interpretation Code Description Data Stephanie e(s) Supporting Document(s) SARS coronavirus 2 RNA [facility] This lab was ordered by [facility] and reported by [facility]. ID Date Data Source [id number] 01/10/2020 02:10:04 PM EDT [facility] [...] [facility] date reported today: 12/20/2019Have you seen [...] Medical History:hernia Surgical History:gall bladder removedappendix removedhernia [id number] removed from right breast areahernia repair Family [...] during this visit, including review of any admr-iqa-[id number] medications, herbal therapies, and/or supplements.Allergy ReviewAllergy List [...] is? FairAssessment & Plan Problems:Assessed:Umbilical hernia (ICD-553.1) (JTH84-P26.9) Assessment: Instructions: Cleared/low risk and optimized for [...] Orders:Adult - Ofc Vst, EST, Level III [CPT-62355] Name Value Range Interpretation Code Description Data Stephanie rce(s) Supporting Document(s) ID Date Data Source [id number] 12/20/2019 11:49:00 AM EDT [facility] ([facility], ) Name Value Range Interpretation Code Description Data Stephanie rce(s) Supporting Document(s) Wound Culture Laboratory test result Normal (applies t o non-numeric results) [facility] ([facility], ) FULL REPORT IN LAB NOTES ([facility] and [facility] ). Gram Stain Laboratory test result Normal (applies to non-n umeric results) [facility] ([facility], ) NO CELLS SEEN NO ORGANISMS SEEN ID Date Data Source [id number] 12/20/2019 11:49:00 AM EDT [facility] ([facility], ) Name Value Range Interpretation Code Description Data Stephanie rce(s) Supporting Document(s) Bacteria identified in Unspecified specimen by Culture Laborator y test result [facility] ([facility], ) ID Date Data Source [id number] 12/02/2019 01:05:01 PM EDT [facility] [...] you seen another healthcare provider? Yes - [facility] general surgeonHealthcare provider date reported today: 11/15/2019Have [...] Medical History:hernia Surgical History:gall bladder removedappendix removedhernia [id number] removed from right breast areahernia repair Family [...] during this visit, including review of any nfiy-mwc-phbruha medications, herbal therapies, and/or supplements.Allergy ReviewAllergy List [...] sooner as needed.Obstructive sleep apnea syndrome (ICD-327.23) (ZKY04-F44.33) Assessment: Instructions: Refer to pulomary for possible [...] Orders:Adult - Ofc Vst, EST, Level III [CPT-31874] Pulmonology Consult [CPT-58333] Medications:PANTOPRAZOLE SODIUM 40 MG ORAL TABLET DELAYED RELEASE (PANTOPRAZOLE SODIUM) One tablet by mouth every day #30[Tablet] x 2 Route:ORAL Entered and Authorized by: David Valencia MD Method used: Electronically to [facility] [address] (retail) [place] [address] Fax: Note to Pharmacy: Route: ORAL; RxID: [id number] PEPCID 20 MG ORAL TABLET (FAMOTIDINE) take one tablet by mouth twice daily #60[Tablet] x 2 Route:ORAL Entered by: Sonia De La Torre Authorized by: Emma INGRAM Method used: Electronically to [facility] [address] (retail) [place] [id number] RxID: [id number] signed by David Valencia MD on 12/02/2019 at 2:26 PM Name Value Range Interpretation Code Description Data Stephanie rce(s) Supporting Document(s) ID Date Data Source [id number] 07/19/2019 03:39:00 PM EST [facility] ([facility]) Name Value Range Interpretation Code Description Data Stephanie rce(s) Supporting Document(s) Bacteria identified in Unspecified specimen by Culture Laborator y test result [facility] ([facility]) Procedure Vital Signs ID Date Data Source [id number] Name Value Range Interpretation Code Description Data Source(s) Body surface area Derived from formula 2.53 m2 2.53 m2 [facility] ([facility]) Body weight 161.538 kg 161.538 kg [facility] ([facility]) [place] body weight 136 [lb_av] 136 [lb_av] MED[place] T ([facility]) Body mass index (BMI) [Ratio] 59.3 kg/m2 59.3 k g/m2 [facility] ([facility]) Body weight 356.12 [lb_av] 356.12 [lb_av] MED[facility] T ([facility]) Body height 65 [in_i] 65 [in_i] [facility] ([facility]) 5'5" Heart rate 102 /min 102 /min [facility] ([facility]) Diastolic blood pressure 87 mm[Hg] 87 mm[Hg] [facility] ([facility]) Systolic blood pressure 138 mm[Hg] 138 mm[Hg] M EDENT ([facility], ) Body weight 5986 [oz_av] 5986 [oz_av] [place] ([facility]) Systolic blood pressure 132 mm[Hg] 132 mm[Hg] A THENA ([facility]) Body mass index (BMI) [Ratio] 62.3 kg/m2 62.3 k g/m2 [place] ([facility]) Body height 65 [in_i] 65 [in_i] [place] ([facility]) Diastolic blood pressure 88 mm[Hg] 88 mm[Hg] [place] ([facility]) Body surface area Derived from formula 2.60 m2 2.60 m2 [facility] ([facility]) Body weight 172.878 kg 172.878 kg [facility] ([facility]) [place] body weight 136 [lb_av] 136 [lb_av] MED[facility] T ([facility]) Body mass index (BMI) [Ratio] 63.4 kg/m2 63.4 k g/m2 [facility] ([facility]) Body weight 381.12 [lb_av] 381.12 [lb_av] MED[facility] T ([facility]) Body height 65 [in_i] 65 [in_i] [facility] ([facility], ) 5'5" Heart rate 74 /min 74 /min [facility] ([facility]) Diastolic blood pressure 84 mm[Hg] 84 mm[Hg] [facility] ([facility]) Systolic blood pressure 151 mm[Hg] 151 mm[Hg] [facility] ([facility]) Body surface area Derived from formula 2.59 m2 2.59 m2 [facility] ([facility]) Body weight 171.007 kg 171.007 kg [facility] ([facility]) [place] body weight 136 [lb_av] 136 [lb_av] [facility] T ([facility]) Body mass index (BMI) [Ratio] 62.7 kg/m2 62.7 k g/m2 [facility] ([facility]) Body weight 377.00 [lb_av] 377.00 [lb_av] [facility] T ([facility]) Body height 65 [in_i] 65 [in_i] [facility] ([facility]) 5'5" Diastolic blood pressure 64 mm[Hg] 64 mm[Hg] [facility] ([facility]) Systolic blood pressure 138 mm[Hg] 138 mm[Hg] [facility] ([facility]) Body surface area Derived from formula 2.59 m2 2.59 m2 [facility] ([facility]) Body weight 171.574 kg 171.574 kg [facility] ([facility]) [place] body weight 136 [lb_av] 136 [lb_av] [place] T ([facility]) Body mass index (BMI) [Ratio] 62.9 kg/m2 62.9 k g/m2 [facility] ([facility]) Body weight 378.25 [lb_av] 378.25 [lb_av] [place] T ([facility]) Body height 65 [in_i] 65 [in_i] [facility] ([facility]) 5'5" Diastolic blood pressure 87 mm[Hg] 87 mm[Hg] [facility] ([facility]) Systolic blood pressure 130 mm[Hg] 130 mm[Hg] [facility] ([facility]) Body surface area Derived from formula 2.60 m2 2.60 m2 [facility] ([facility]) Body weight 172.084 kg 172.084 kg [facility] ([facility]) [place] body weight 136 [lb_av] 136 [lb_av] MED[facility] T ([facility]) Body mass index (BMI) [Ratio] 63.1 kg/m2 63.1 k g/m2 [facility] ([facility]) Body weight 379.38 [lb_av] 379.38 [lb_av] [facility] T ([facility]) Body height 65 [in_i] 65 [in_i] [facility] ([facility]) 5'5" Body mass index (BMI) [Ratio] 61.1 kg/m2 61.1 k g/m2 [facility] ([facility] Heart rate 77 /min 77 /min [facility] ([facility] Diastolic blood pressure 90 mm[Hg] 90 mm[Hg] [facility] ([facility] Systolic blood pressure 137 mm[Hg] 137 mm[Hg] M EDENT ([facility] Body weight 367.00 [lb_av] 367.00 [lb_av] MEDEN T ([facility] Body height 65 [in_i] 65 [in_i] [facility] ([facility] 5'5" Body weight 174.352 kg 174.352 kg [facility] ([facility]) [place] body weight 136 [lb_av] 136 [lb_av] MED[facility] T ([facility]) Body mass index (BMI) [Ratio] 64.0 kg/m2 64.0 k g/m2 [facility] ([facility]) Body weight 384.38 [lb_av] 384.38 [lb_av] MED[facility] T ([facility]) Body height 65 [in_i] 65 [in_i] [facility] ([facility], ) 5'5" Heart rate 72 /min 72 /min [facility] ([facility], ) Diastolic blood pressure 85 mm[Hg] 85 mm[Hg] [facility] ([facility]) Systolic blood pressure 127 mm[Hg] 127 mm[Hg] [facility] ([facility]) Body mass index (BMI) [Ratio] 61.6 kg/m2 61.6 k g/m2 [facility] ([facility], [facility]) Body height 65 [in_i] 65 [in_i] [facility] ([facility], [facility]) 5'5" Body weight 370.00 [lb_av] 370.00 [lb_av] MEDEN T ([facility], [facility]) Body temperature 97.8 [degF] 97.8 [degF] [facility] ([facility], [facility]) Oxygen saturation in Arterial blood by Pulse oximetry 97 % 97 % [facility] ([facility], [facility]) Respiratory rate 18 /min 18 /min [facility] ( [facility], [facility]) Heart rate 66 /min 66 /min [facility] ([facility], [facility]) Diastolic blood pressure 93 mm[Hg] 93 mm[Hg] [facility] ([facility], [facility]) Systolic blood pressure 126 mm[Hg] 126 mm[Hg] [facility] ([facility], [facility]) Body weight 177.017 kg 177.017 kg [facility] ([facility]) Body mass index (BMI) [Ratio] 64.9 kg/m2 64.9 k g/m2 [facility] ([facility]) Body weight 390.25 [lb_av] 390.25 [lb_av] MED[facility] T ([facility]) Body height 65 [in_i] 65 [in_i] [facility] ([facility]) 5'5" Diastolic blood pressure 90 mm[Hg] 90 mm[Hg] [facility] ([facility]) Systolic blood pressure 154 mm[Hg] 154 mm[Hg] [facility] ([facility]) Body weight 175.600 kg 175.600 kg [facility] ([facility]) Body mass index (BMI) [Ratio] 64.4 kg/m2 64.4 k g/m2 [facility] ([facility]) Body weight 387.12 [lb_av] 387.12 [lb_av] [facility] T ([facility]) Body height 65 [in_i] 65 [in_i] [facility] ([facility]) 5'5" Diastolic blood pressure 100 mm[Hg] 100 mm[Hg] [facility] ([facility]) Systolic blood pressure 180 mm[Hg] 180 mm[Hg] [facility] ([facility]) Body weight 174.806 kg 174.806 kg [facility] ([facility]) Body mass index (BMI) [Ratio] 64.1 kg/m2 64.1 k g/m2 [facility] ([facility]) Body weight 385.38 [lb_av] 385.38 [lb_av] [facility] T ([facility]) Body height 65 [in_i] 65 [in_i] [facility] ([facility]) 5'5" Diastolic blood pressure 100 mm[Hg] 100 mm[Hg] [facility] ([facility]) Systolic blood pressure 148 mm[Hg] 148 mm[Hg] [facility] ([facility]) Body weight 6080 [oz_av] 6080 [oz_av] [facility] ([facility]) Systolic blood pressure 136 mm[Hg] 136 mm[Hg] A THENA ([facility]) Body height 65 [in_i] 65 [in_i] [facility] ([facility]) Diastolic blood pressure 88 mm[Hg] 88 mm[Hg] [facility] ([facility]) Body weight 173.842 kg 173.842 kg [facility] ([facility]) Body mass index (BMI) [Ratio] 63.8 kg/m2 63.8 k g/m2 [facility] ([facility]) Body weight 383.25 [lb_av] 383.25 [lb_av] MED[facility] T ([facility]) Body height 65 [in_i] 65 [in_i] [facility] ([facility]) 5'5" Diastolic blood pressure 96 mm[Hg] 96 mm[Hg] [facility] ([facility]) Systolic blood pressure 154 mm[Hg] 154 mm[Hg] M EDDELMY ([facility]) Body weight 6083.2 [oz_av] 6083.2 [oz_av] ATHEN A ([facility]) Systolic blood pressure 140 mm[Hg] 140 mm[Hg] A THENA ([facility]) Body height 65 [in_i] 65 [in_i] [facility] ([facility]) Diastolic blood pressure 87 mm[Hg] 87 mm[Hg] [facility] ([facility]) Body height 65 [in_i] 65 [in_i] [facility] ([facility]) 5'5" Body temperature 97.8 [degF] 97.8 [degF] [facility] ([facility]) Diastolic blood pressure 91 mm[Hg] 91 mm[Hg] [facility] ([facility]) Systolic blood pressure 139 mm[Hg] 139 mm[Hg] [facility] ([facility]) Body weight 172.368 kg 172.368 kg [facility] ([facility]) Body mass index (BMI) [Ratio] 63.2 kg/m2 63.2 k g/m2 [facility] ([facility]) Body weight 380.00 [lb_av] 380.00 [lb_av] [employer] ([facility]) Body weight 170.780 kg 170.780 kg [facility] ([facility]) Body mass index (BMI) [Ratio] 62.6 kg/m2 62.6 k g/m2 [facility] ([facility]) Body weight 376.50 [lb_av] 376.50 [lb_av] MED[facility] T ([facility]) Body height 65 [in_i] 65 [in_i] [facility] ([facility]) 5'5" Body temperature 97.7 [degF] 97.7 [degF] [facility] ([facility]) Diastolic blood pressure 80 mm[Hg] 80 mm[Hg] [facility] ([facility]) Systolic blood pressure 120 mm[Hg] 120 mm[Hg] [facility] ([facility]) Body weight 172.878 kg 172.878 kg [facility] ([facility]) Body mass index (BMI) [Ratio] 63.4 kg/m2 63.4 k g/m2 [facility] ([facility]) Body weight 381.12 [lb_av] 381.12 [lb_av] MED[facility] T ([facility]) Body height 65 [in_i] 65 [in_i] [facility] ([facility]) 5'5" Body temperature 97.7 [degF] 97.7 [degF] [facility] ([facility]) Heart rate 65 /min 65 /min [facility] ([facility]) Diastolic blood pressure 77 mm[Hg] 77 mm[Hg] [facility] ([facility]) Systolic blood pressure 122 mm[Hg] 122 mm[Hg] [facility] ([facility]) Body weight 170.554 kg 170.554 kg [facility] ([facility]) Body mass index (BMI) [Ratio] 62.6 kg/m2 62.6 k g/m2 [facility] ([facility]) Body weight 376.00 [lb_av] 376.00 [lb_av] [facility] T ([facility]) Body height 65 [in_i] 65 [in_i] [facility] ([facility]) 5'5" Diastolic blood pressure 88 mm[Hg] 88 mm[Hg] [facility] ([facility]) Systolic blood pressure 144 mm[Hg] 144 mm[Hg] [facility] ([facility]) Body weight 169.250 kg 169.250 kg [facility] ([facility]) Body mass index (BMI) [Ratio] 62.1 kg/m2 62.1 k g/m2 [facility] ([facility]) Body weight 373.12 [lb_av] 373.12 [lb_av] LEOBARDOEN T ([facility], ) Body height 65 [in_i] 65 [in_i] LEOBARDOENT ([facility], ) 5'5" Diastolic blood pressure 85 mm[Hg] 85 mm[Hg] LUISA ([facility], ) Systolic blood pressure 130 mm[Hg] 130 mm[Hg] M JIM ([facility], ) Patient Treatment Plan of Care Planned Activity Planned Date Details Description Data Source (s) Sucralfate 1000 MG Oral Tablet FREIDA ([facility]) Acetaminophen 325 MG / Oxycodone Hydrochloride 5 MG Oral Tablet FREIDA ([facility]) meloxicam 7.5 MG Oral Tablet FREIDA ([facility]) Lidocaine 40 MG/ML Topical Cream FREIDA ([facility]) Ibuprofen 600 MG Oral Tablet FREIDA ([facility]) Cyclobenzaprine hydrochloride 10 MG Oral Tablet FREIDA ([facility]) chlorhexidine gluconate 1.2 MG/ML Mouthwash FREIDA ([facility]) Amoxicillin 875 MG / Clavulanate 125 MG Oral Tablet FREIDA ([facility]) Amoxicillin 500 MG Oral Capsule FREIDA ([facility]) ammonium lactate 120 MG/ML Topical Cream FREIDA ([facility])
[2020-08-12] MEDS ORDERED: NS 1,000 ML IV ONE (00:45)
[2020-08-12] MEDS ORDERED: MORPHINE 4 MG/ML 1ML VIAL/SYRINGE (J2270) IV ONE (00:45)
[2020-08-12 00:52] LABS: BASO % 0.3 % (0.0-1.0); EOS # 0.7 10^3/uL (0.0-0.5); EOS % 5.4 % (0.0-3.0); HEMATOCRIT 46.5 % (42.0-52.0); HEMOGLOBIN 14.2 g/dl (13.5-17.5); LYMPH # 2.5 10^3/uL (1.5-5.0); LYMPH % 19.3 % (24.0-44.0); MEAN CORPUSCULAR HEMOGLOBIN 24.4 pg (27.0-33.0); MEAN CORPUSCULAR HGB CONC 30.5 g/dl (32.0-36.5); MEAN CORPUSCULAR VOLUME 79.9 fl (80.0-96.0); MONO # 0.7 10^3/uL (0.0-0.8); MONO % 5.2 % (0.0-5.0); NEUTROPHILS # 9.1 10^3/uL (1.5-8.5); NEUTROPHILS % 69.3 % (36.0-66.0); PLATELET COUNT, AUTOMATED 237 10^3/uL (150-450); RED BLOOD COUNT 5.82 10^6/uL (4.30-6.10); WHITE BLOOD COUNT 13.1 10^3/uL (4.0-10.0)
[2020-08-12 00:58] LABS: ALBUMIN 3.6 GM/DL (3.2-5.2); ALT/SGPT 119 U/L (12-78); BILIRUBIN,DIRECT 0.2 MG/DL (0.0-0.2); BILIRUBIN,TOTAL 0.4 MG/DL (0.2-1.0); BLOOD UREA NITROGEN 14 MG/DL (7-18); CALCIUM LEVEL 9.4 MG/DL (8.5-10.1); CARBON DIOXIDE LEVEL 31 MEQ/L (21-32); CHLORIDE LEVEL 100 MEQ/L (98-107); CREATININE FOR GFR 1.05 MG/DL (0.70-1.30); GLOMERULAR FILTRATION RATE > 60.0 (>60); GLUCOSE, FASTING 96 MG/DL (70-100); LIPASE 85 U/L (73-393); POTASSIUM SERUM 4.1 MEQ/L (3.5-5.1); SODIUM LEVEL 139 MEQ/L (136-145); TOTAL PROTEIN 7.9 GM/DL (6.4-8.2)
[2020-08-12] MEDS ORDERED: ISOVUE-370 76% 100ML VIAL As Ordered ONE (01:00)
--- OUTSIDE RECORDS SUMMARY | 2020-08-12 01:28 | CCD ---
Author Author [facility] Address Unknown Phone Unavailable Care Team Providers Care Toys Inspector Name Role Phone Ermelinda REZA MD Unavailable [...] Unavailable Unavailable Marina BRAY DPM Unavailable Unavailable aMrina BRAY DPM Unavailable Unavailable Marina BRAY DPM [...] Unavailable Unavailable Cynthia Valencia MD Unavailable Unavailable Henrietta, Olimpia Romeo Unavailable Unavailable Henrietta, Olimpia Romeo Unavailable Unavailable Heath, Olimpia Romeo Unavailable Unavailable Heath, Olimpia Romeo Unavailable Unavailable Heath, Olimpia Romeo Unavailable Unavailable Henrietta, Olimpia Romeo Unavailable Unavailable Heath, Olimpia Romeo Unavailable Unavailable Henrietta, Olimpia Romeo Unavailable Unavailable Cynthia Valencia MD [...] Cynthia Valencia MD Unavailable Unavailable Emma Patel ATHLETE MANAGER ATHLETE MANAGER Unavailable Unavailable LETTIERE, A COURTNEY PA Unavailable Unavailable LETTIERE, A COURTNEY PA Unavailable Unavailable LETTIERE, A COURTNEY PA Unavailable Unavailable LETTIERE, A COURTNEY PA Unavailable Unavailable LETTIERE, A COUTRNEY PA Unavailable Unavailable LETTIERE, A COURTNEY PA [...] by Article 27-F of the [facility] Public Health law. If you continue you may have access to information: Regarding HIV / AIDS; Provided by facilities licensed or operated by the [facility] Office of Mental Health; or Provided by the [facility] Office for People With Developmental Disabilities. If such information is present, then the following [facility] mandated warning applies: This information [...] law may result in a fine or skilled nursing sentence or both. A general authorization for the release of medical or other information is NOT sufficient authorization for further disc losure. Allergies and Adverse Reactions Type Description Substance Reaction Status Data Source(s ) Allergy to substance Allergy to substance Allergy to substance FREIDA ([facility]) Family History Family Member Name Family Member Gender Family Member Status Date o f Status Description Data Source(s) Unknown Male Problem MEDENT ([facility]) Unknown Male Problem MEDENT ([facility]) Unknown Male Problem MEDENT ([facility] () Encounters Encounter Providers Location Date Indications Data Source(s ) David Valencia MD: [address] [place] [address] [id number], Ph. Attender: David Valencia MD [facility] Medical 07/26/2020 12:00:00 AM EST FREIDA ([facility]) Outpatient Attender: POLO BRAY [facility] Office 06/12 12:00:00 PM EST MEDENT ([facility] Outpatient Attender: CHERELLE Kapadia/Norwood/Vikas/ Reindl 06/26/2020 08:15:00 AM EST MEDENT ([facility] Outpatient Attender: Romeo Kapadia/Norwood/Vikas/Reindl 06/13/2020 09:00:00 AM EST MEDENT ([facility]) Outpatient Attender: CHERELLE Kapadia/Norwood/Vikas/ Reindl 06/05/2020 08:45:00 AM EST MEDENT ([facility]) Outpatient Attender: CHERELLE Kapadia/Norwood/Vikas/ Reindl 05/22/2020 02:15:00 PM EST MEDENT ([facility]) Outpatient Attender: POLO BRAY [facility] Office 04/12 03:00:00 PM EDT MEDENT ([facility] Outpatient Attender: CHERELLE Kapadia/Norwood/Vikas/ Reindl 04/17/2020 10:30:00 AM EDT MEDENT ([facility]) Outpatient Attender: David Valencia MD FP 04/06/2020 06:10:00 PM EDT [facility] Outpatient Attender: COURTNEY moreno 03/30/2020 01:10:00 PM EDT MEDENT ([facility] Outpatient Attender: David Valencia MD FP 03/23/2020 10:40:00 AM EDT [facility] Office Visit Attender: Romeo Kapadia/Norwood/Vikas/Reindl 03/13/2020 10:30:00 AM EDT MEDENT ([facility]) Office Visit Attender: Romeo Kapadia/Norwood/Vikas/Reindl 02/28/2020 01:00:00 PM EDT MEDENT ([facility]) Outpatient Attender: Romeo Kapadia/Norwood/Vikas/Reindl 02/13/2020 10:00:00 AM EDT MEDENT ([facility]) Outpatient Attender: David Valencia MD FP 02/06/2020 12:41:00 PM EDT [facility] Outpatient Attender: Romeo Kapadia/Norwood/Vikas/Reindl 02/02/2020 09:00:00 AM EDT MEDENT ([facility]) Outpatient Attender: David Valencia MD FP 01/10/2020 03:07:01 PM EDT [facility] Outpatient Attender: David Valencia MD FP 01/09/2020 03:16:00 PM EDT [facility] Outpatient Attender: David CORTEZ 01/04/2020 02:17:00 PM EDT [facility] Outpatient Attender: David CORTEZ 12/21/2019 08:24:01 AM EDT [facility] Outpatient Attender: David CORTEZ 12/20/2019 02:27:00 PM EDT [facility] Outpatient Attender: CHERELLE Kapadia/Norwood/Vikas/ Reindl 12/20/2019 11:20:00 AM EDT MEDENT ([facility]) Outpatient Attender: David Valencia MD FP 12/07/2019 01:47:00 PM EDT [facility] Outpatient Attender: David Valencia MD FP 12/02/2019 02:53:00 PM EDT [facility] Outpatient Attender: David CORTEZ 12/02/2019 02:27:01 PM EDT [facility] Outpatient Attender: David CORTEZ 12/02/2019 02:08:00 PM EDT [facility] Outpatient Attender: David Valencia MD FP 12/02/2019 02:04:01 PM EDT [facility] Outpatient Attender: David Valencia MD FP 12/02/2019 02:03:00 PM EDT [facility] Outpatient Attender: David Valencia MD FP 12/02/2019 01:04:00 PM EDT [facility] Outpatient Attender: David Valencia MD FP 12/02/2019 01:03:01 PM EDT [facility] Outpatient Attender: David Valencia MD 11/30/2019 09:01:03 PM EDT [facility] Outpatient Attender: David Valencia MD 11/30/2019 09:51:11 AM EDT [facility] Outpatient Attender: CHERELLE Kapadia/Norwood/Vikas/ Reindl 11/15/2019 10:20:00 AM EDT MEDENT ([facility]) Outpatient Attender: David Valencia MD 11/09/2019 04:35:00 PM EDT [facility] Outpatient Attender: CHERELLE Kapadia/Norwood/Vikas/ Reindl 10/18/2019 11:30:00 AM EDT MEDENT ([facility]) Outpatient Attender: CHERELLE Kapadia/Norwood/Vikas/ Reindl 10/04/2019 10:20:00 AM EDT MEDENT ([facility]) Outpatient 09/01/2019 01:24:00 PM EST [facility] Outpatient 08/23/2019 01:31:00 PM EST [facility] Outpatient Attender: CHERELLE Kapadia/Norwood/Vikas/ Reindl 08/23/2019 10:15:00 AM EST MEDENT ([facility] Outpatient 08/12/2019 01:03:00 PM [facility] Outpatient Attender: JUAN JOSE CORTEZ 07/06/2019 09:01:07 P M [facility] Medications Medication Brand Name Start Date Product Form Dose Route Admi nistrative Instructions Pharmacy Instructions Status Indications Reaction Description Data Source(s) Acetaminophen 325 MG / Oxycodone Hydrochloride 5 MG Or al Tablet [Percocet] Percocet 08/09/2020 12:00:00 AM EST ORAL active [facility] Ondansetron 4 MG Oral Tablet [Zofran] Zofran 08/09/2020 12:00:00 AM EST active MEDENT ([facility], ) ammonium lactate 120 MG/ML Topical Cream Ammonium Lactate 06/29/2020 12:00:00 AM EST active MEDENT ([facility] Urea 400 MG/ML Topical Cream Urea 04/24/2020 12:00:00 AM EDT active MEDENT ([facility] Acetaminophen 325 MG / Oxycodone Hydrochloride 5 MG Or al Tablet [Percocet] Percocet 04/17/2020 12:00:00 AM EDT ORAL completed MEDENT ([facility] ) Cyclobenzaprine hydrochloride 10 MG Oral Tablet Cyclobenzapr ine HCL 03/30/2020 12:00:00 AM EDT active M EDENT ([facility]) No Active Medications 03/30/2020 12:00:00 AM EDT completed MEDENT ([facility]) Ibuprofen 800 MG Oral Tablet Ibuprofen 03/30/2020 12:00:00 AM EDT active MEDENT ([facility]) Abdominal Binder/Elastic/3X-Large 03/13/2020 12:00:00 AM EDT active MEDENT ([facility], ) Acetaminophen 325 MG / Oxycodone Hydrochloride 5 MG Or al Tablet [Percocet] Percocet 01/18/2020 12:00:00 AM EDT ORAL completed MEDENT ([facility] ) Sucralfate 1000 MG Oral Tablet [Carafate] Carafate 10/04/2019 1 2:00:00 AM EDT active MEDENT ([facility], ) meloxicam 7.5 MG Oral Tablet Meloxicam 08/23/2019 12:00:00 AM EST active MEDENT ([facility], ) pantoprazole 40 MG Delayed Release Oral Tablet [Protonix] Pr otonix 07/07/2019 12:00:00 AM EST ORAL active M EDENT ([facility] ) Ibuprofen 600 MG Oral Tablet Ibuprofen 04/12/2019 12:00:00 AM EDT ORAL completed MEDENT ([facility], ) Acetaminophen 325 MG / Oxycodone Hydrochloride 5 MG Or al Tablet [Percocet] Percocet 04/12/2019 12:00:00 AM EDT ORAL completed MEDENT ([facility] ) meloxicam 7.5 MG Oral Tablet meloxicam 7 .5 mg tablet TAKE ONE TABLET BY MOUTH TWICE DAILY meloxicam 7.5 mg tablet TAKE ONE TABLET BY MOUTH TWICE DAILY completed meloxicam 7.5 MG Ora l Tablet LOOMIS ([facility]) ammonium lactate 120 MG/ML Topical Cream ammonium lactate 12 % topical cream APPLY TOPICALLY TO FEET ONCE DAILY ammonium lactate 12 % topical cream APPL Y TOPICALLY TO FEET ONCE DAILY completed ammonium lactate 120 MG/ML Topical Cream LOOMIS ([facility]) chlorhexidine gluconate 1.2 MG/ML Mouthw crispin chlorhexidine gluconate 0.12 % mouthwash RINSE AND SPIT ONE CAPFUL BY MOUTH THREE TIMES DAILY BEGINNING TOMORROW chlorhexidine gluconate 0.12 % mouthwash RINSE AND SPIT ONE CAPFUL BY MOUTH THREE TIMES DAILY BEGINNING TOMORROW completed chlorhexidine gluconate 1.2 MG/ML Mouthwash LOOMIS ([facility]) Acetaminophen 325 MG / Oxycodone Hydroch loride [...] oxycodone hydrochloride 5 MG Oral Tablet FREIDA ([facility]) Amoxicillin 875 MG / Clavulanate 125 MG Oral Tablet amoxicillin 875 mg-potassium clavulanate 125 mg tablet TAKE ONE TABLET BY MOUTH TWICE DAILY amoxicillin 875 mg-potassium clavulanate 125 mg tablet TAKE ONE TABLET BY MOUTH TWICE DAILY completed amoxicillin 875 MG / c lavulanate 125 MG Oral Tablet LOOMIS ([facility]) Ibuprofen 600 MG Oral Tablet ibuprofen 6 00 mg tablet TAKE ONE TABLET BY MOUTH THREE TIMES DAILY WITH FOOD ibuprofen 600 mg tablet TAKE ONE TABLET BY MOUTH THREE TIMES DAILY WITH FOOD completed ibuprofen 600 MG Oral Tablet LOOMIS ([facility]) Cyclobenzaprine hydrochloride 10 MG Oral Tablet cyclobenzaprine 10 mg tablet TAKE ONE TABLET BY MOUTH EVERY EIGHT HOURS NEEDED cyclobenzaprine 10 mg tablet TAKE ONE TABLET BY MOUTH EVERY EIGHT HOURS NEEDED completed cyclobenzaprine hydrochloride 10 MG Oral Tablet LOOMIS ([facility]) Sucralfate 1000 MG Oral Tablet sucralfat e 1 gram tablet TAKE ONE TABLET BY MOUTH TWICE DAILY sucralfate 1 gram tablet TAKE ONE TABLET BY MOUTH TWICE DAILY completed sucralfate 1000 MG Ora l Tablet LOOMIS ([facility]) Amoxicillin 500 MG Oral Capsule amoxicil sulma 500 mg capsule TAKE ONE CAPSULE BY MOUTH EVERY 8 HOURS NEEDED amoxicillin 500 mg capsule TAKE ONE CAPS ULE BY MOUTH EVERY 8 HOURS NEEDED complete d amoxicillin 500 MG Oral Capsule LOOMIS ([facility]) Lidocaine 40 MG/ML Topical Cream lidocai ne 4 % topical cream apply thin layer TO affected AREA ON back EVERY 8 HOURS NEEDED DIRECTED lidocaine 4 % topical cream apply thin layer TO affected AREA ON back EVERY 8 HOURS NEEDED DIRECTED completed lidocaine 40 MG/ML Topical Cream LOOMIS ([facility]) Insurance Providers Payer name Policy type / Coverage type Policy ID Covered green party ID Covered green party's relationship to craft Policy Craft Plan Information [facility] COMMUNITY PLAN [facility] [id number] SP [id number] [facility] O [id number] S [id number] Medicaid S [id number] S [id number] Managed Care [facility] Community Plan P [id number] S [id number] [facility] [id number] SP [id number] [facility] SP 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 [id number] SP [id number] [facility] [id number] SP [id number] Medicaid S [id number] S [id number] Managed Care - [facility] Community Plan P [id number] S [id number] Self Pay P [id number] S [id number] MEDICAID [id number] SP [id number] SELF PAY ONLY [id number] SP [id number] [facility] Communty Plan Medicaid [id number] Self [id number] [facility] COMMUNTY PLAN [id number] 18 [id number] UN COMMUNITY PLAN XIX [id number] 18 [id number] Self Pay P UNAVAILABLE S UNAVAILA BLE Managed Care - Community Plan [facility] P [id number] S [id number] Medicaid S [id number] S [id number] Managed Care - Community Plan [facility] P [id number] S [id number] Medicaid S [id number] S [id number] [facility] Communty Plan Medicaid [id number] Self [id number] Managed Care - Community Plan [facility] P [id number] S [id number] [facility] Communty Plan Medicaid [id number] Self [id number] [facility] Community Plan Commercial [id number] Self [id number] [facility] Neel/MCR Health Maintenance Organization (HMO) [id number] Self [id number] Medicaid P [id number] S [id number] MEDICAID M [id number] S [id number] [employer] [place] 306/806 [id number] SP [id number] [place] 306/806 [id number] SP [id number] [employer] BCBS B [id number] S [id number] [place] 306/806 [id number] SELF PAY ONLY [id number] SP [id number] UN COMMUNITY PLAN [facility] [id number] SP [id number] [facility] Hmo Commercial [id number] Self [id number] [facility] Hmo Commercial Self D Managed Care [facility] P [phone] S [phone] Problems, Conditions, and Diagnoses Code Display Name Description Problem Type Effective Dates Data Source(s) [id number] Anemia Anemia Problem 07/26/2020 12:00:00 AM BRITTANY GUAN ([facility]) Corns and callosities Corns and callosities Problem 05/08/2020 12:00:00 AM EDT MEDENT ([facility] [id number] Pronation Pronation Problem 05/08/2020 12:00:00 AM ED T MEDENT ([facility] [id number] Pronation Pronation Problem 05/08/2020 12:00:00 AM ED T MEDENT ([facility] [id number] Plantar fascial fibromatosis Plantar fascial fibromato sis Problem 05/08/2020 12:00:00 AM EDT MEDENT ([facility] Surgeries/Procedures Procedure Description Date Indications Data Source(s) Fine Needle Aspiration W/O Imag 04/17/2020 12:00:00 AM EDT MEDENT ([facility] ) Therapeutic, Prophylactic Or Diagnostic Injection Subq/Im 03/30/2020 12:00:00 AM EDT MEDENT ([facility]) Excise Benign Lesion > 4CM Trunk/Arm/Leg 01/20/2020 12:00:00 AM EDT MEDENT ([facility] ) I & D Hematoma 07/19/2019 12:00:00 AM EST MEDENT ([facility] ) Results ID Date Data Source [id number] 07/29/2020 09:00:00 AM EST [facility] Name Value Range Interpretation Code Description Data Stephanie rce(s) Supporting Document(s) SARS coronavirus 2 RNA Not Detected [place] [place] This lab was ordered by [facility] and reported by [facility]. ID Date Data Source [id number] 06/05/2020 09:37:00 PM EST FREIDA ([facility]) Name Value Range Interpretation Code Description Data Stephanie rce(s) Supporting Document(s) lipase 90 U/L 73-393 normal Lipase FREIDA ([facility]) ID Date Data Source [id number] 06/05/2020 09:37:00 PM EST FREIDA ([facility]) Name Value Range Interpretation Code Description Data Stephanie rce(s) Supporting Document(s) blood urea nitrogen 11 mg/dL 7-18 normal Blood Urea Nitro gen FREIDA ([facility]) glucose, fasting 84 mg/dL 70-100 normal Glucose, Fasting AT [facility]) potassium serum 4.2 mEq/L 3.5-5.1 normal Potassium Serum ATHE ([facility]) creatinine for GFR 0.96 mg/dL 0.70-1.30 normal Creatinine for GF R LOOMIS ([facility]) sodium level 140 mEq/L 136-145 normal Sodium Level FREIDA ([facility]) glomerular filtration rate > 60.0 >60 normal Glomerula r Filtration Rate FREIDA ([facility]) carbon dioxide level 30 mEq/L 21-32 normal Carbon Dioxide Level LOOMIS ([facility]) chloride level 103 mEq/L 98-107 normal Chloride Level LOOMIS ([facility]) calcium level 8.8 mg/dL 8.5-10.1 normal Calcium Level LOOMIS ( [facility]) anion gap 7 mEq/L 8-16 Below low normal Anion Gap LOOMIS ( [facility]) ID Date Data Source [id number] 06/05/2020 09:37:00 PM EST FREIDA ([facility]) Name Value Range Interpretation Code Description Data Stephanie rce(s) Supporting Document(s) AST/SGOT 21 U/L 7-37 normal AST/SGOT FREIDA ([facility]) ALT/SGPT 29 U/L 12-78 normal ALT/SGPT FREIDA ([facility]) bilirubin,direct < 0.1 0.0-0.2 normal Bilirubin,direct AT [facility]) bilirubin,total 0.3 mg/dL 0.2-1.0 normal Bilirubin,total ATHE ([facility]) alkaline phosphatase 132 U/L 45-117 Above high normal Alkaline Phosphatase LOOMIS ([facility]) total protein 7.5 gm/dL 6.4-8.2 normal Total Protein FREIDA ( [facility]) albumin/globulin ratio normal Albumin/globu sulma Ratio FREIDA ([facility]) albumin 3.5 gm/dL 3.2-5.2 normal Albumin FREIDA ([facility]) ID Date Data Source [id number] 06/05/2020 09:37:00 PM EST FREIDA ([facility]) Name Value Range Interpretation Code Description Data Stephanie rce(s) Supporting Document(s) white blood count 9.9 10 4.0-10.0 normal White Blood Count FREIDA ([facility]) red blood count 5.01 10 4.30-6.10 normal Red Blood Count ATHE ([facility]) hemoglobin 12.4 g/dL 13.5-17.5 Below low normal Hemoglobin FREIDA ( [facility]) mean corpuscular volume 80.8 fL 80.0-96.0 normal Mean Corpusc ular Volume FREIDA ([facility]) mean corpuscular hemoglobin 24.8 pg 27.0-33.0 Below low nor mal Mean Corpuscular Hemoglobin FREIDA ([facility]) hematocrit 40.5 % 42.0-52.0 Below low normal Hematocrit FREIDA ( [facility]) mean corpuscular HGB conc 30.6 g/dL 32.0-36.5 Below low luis felipe l Mean Corpuscular HGB Conc FREIDA ([facility]) red cell distribution width 15.3 % 11.5-14.5 Above high no rmal Red Cell Distribution Width FERIDA ([facility]) platelet count, automated 168 10 150-450 normal Platelet C ount, Automated FREIDA ([facility]) mono % 5.1 % 0.0-5.0 Above high normal [place] % FREIDA ([facility]) neutrophils % 68.0 % 36.0-66.0 Above high normal Neutrophils % A THENA ([facility]) lymph % 23.4 % 24.0-44.0 Below low normal Lymph % FREIDA ( [facility]) baso % 0.3 % 0.0-1.0 normal Baso % LOOMIS ([facility]) immature granulocyte % 0.4 % 0-3.0 normal Immature Gran ulocyte % FREIDA ([facility]) eos % 2.8 % 0.0-3.0 normal Eos % LOOMIS ([facility]) neutrophils # 6.8 10 1.5-8.5 normal Neutrophils # FREIDA ( [facility]) nucleated red blood cell % 0.0 % 0-0 normal Nucleated Red Blood Cell % FREIDA ([facility]) lymph # 2.3 10 1.5-5.0 normal Lymph # LOOMIS ([facility]) mono # 0.5 10 0.0-0.8 normal [place] # LOOMIS ([facility]) baso # 0.0 10 0.0-0.2 normal Baso # FREIDA ([facility]) eos # 0.3 10 0.0-0.5 normal Eos # FREIDA ([facility]) ID Date Data Source [id number] 05/30/2020 09:00:00 AM EST [facility] ([facility], ) Name Value Range Interpretation Code Description Data Stephanie rce(s) Supporting Document(s) Bacteria identified in Unspecified specimen by Anaerob e culture Laboratory test result MEDENT ([facility], ) If anaerobic or aerobic growth is detected within the next 7-21 days, an addendum will follow. . . FULL REPORT IN LAB NOTES (eCW and Medent). NO GROWTH ANAEROBICALLY ID Date Data Source [id number] 05/30/2020 09:00:00 AM EST MEDENT ([facility], ) Name Value Range Interpretation Code Description Data Stephanie rce(s) Supporting Document(s) Gram Stain Laboratory test result Normal (applies to non-n umeric results) MEDENT ([facility]) MANY RBCS NO ORGANISMS SEEN Abscess Culture Laboratory test result [facility] ([facility]) If aerobic or anaerobic growth is detected within the next 7-21 days, an addendum will follow. . . FULL RE[facility] NOT[facility] NO GROWTH AEROBICALLY ID Date Data Source [id number] 05/30/2020 09:00:00 AM EST FREIDA ([facility]) Name Value Range Interpretation Code Description Data Stephanie rce(s) Supporting Document(s) ID Date Data Source [id number] 05/30/2020 09:00:00 AM EST FREIDA ([facility]) Name Value Range Interpretation Code Description Data Stephanie rce(s) Supporting Document(s) ID Date Data Source [id number] 05/30/2020 09:00:00 AM EST FREIDA ([facility]) Name Value Range Interpretation Code Description Data Stephanie rce(s) Supporting Document(s) ID Date Data Source [id number] 05/22/2020 03:39:00 PM EST MEDENT ([facility], ) Name Value Range Interpretation Code Description Data Stephanie rce(s) Supporting Document(s) Gram Stain Laboratory test result Normal (applies to non-n umeric results) [facility] ([facility]) FEW WBCS FEW RBCS NO ORGANISMS SEEN Wound Culture Laboratory test result [facility] ([facility]) If aerobic or anaerobic growth is detected within the next 7-21 days, an addendum will follow. . . FULL REPORT IN LAB NOTES (eCW and Medent). NO GROWTH AEROBICALLY ID Date Data Source [id number] 05/16/2020 05:30:00 PM EST FREIDA ([facility]) Name Value Range Interpretation Code Description Data Stephanie rce(s) Supporting Document(s) istat HCT 43.0 % 38.0-51.0 normal Istat HCT FREIDA ([facility]) istat potassium 4.4 mEq/L 3.5-5.1 normal Istat Potassium ATHE NA ([facility]) istat glucose 87 mg/dL 70-105 normal Istat Glucose LOOMIS ( [facility]) istat chloride 100 mEq/L 98-109 normal Istat Chloride FREIDA ([facility]) istat sodium 139 mEq/L 136-145 normal Istat Sodium FREIDA ([facility]) istat Ca++ 4.8 mg/dL 4.5-5.3 normal Istat Ca++ FREIDA ([facility]) istat BUN 12 mg/dL 8-26 normal Istat BUN LOOMIS ([facility]) istat CO2 29.0 mm/L 23.0-27.0 Above high normal Istat CO2 LOOMIS ([facility]) istat creatinine 1.0 mg/dL 0.6-1.3 normal Istat Creatinine AT [facility] ([facility]) ID Date Data Source [id number] 05/16/2020 05:25:00 PM EST FREIDA ([facility]) Name Value Range Interpretation Code Description Data Stephanie rce(s) Supporting Document(s) lactic acid sepsis protocol 0.7 mmol/L 0.4-2.0 normal Lactic Acid Sepsis Protocol FREIDA ([facility]) ID Date Data Source [id number] 05/16/2020 05:24:00 PM EST FREIDA ([facility]) Name Value Range Interpretation Code Description Data Stephanie rce(s) Supporting Document(s) lipase 76 U/L 73-393 normal Lipase FREIDA ([facility]) ID Date Data Source [id number] 05/16/2020 05:24:00 PM EST FREIDA ([facility]) Name Value Range Interpretation Code Description Data Stephanie rce(s) Supporting Document(s) AST/SGOT 18 U/L 7-37 normal AST/SGOT FREIDA ([facility]) alkaline phosphatase 127 U/L 45-117 Above high normal Alkaline Phosphatase FREIDA ([facility]) ALT/SGPT 29 U/L 12-78 normal ALT/SGPT FREIDA ([facility]) bilirubin,direct < 0.1 0.0-0.2 normal Bilirubin,direct AT [facility]) total protein 7.8 gm/dL 6.4-8.2 normal Total Protein FREIDA ( [facility]) albumin 3.5 gm/dL 3.2-5.2 normal Albumin FREIDA ([facility]) bilirubin,total 0.2 mg/dL 0.2-1.0 normal Bilirubin,total ATHE ([facility]) albumin/globulin ratio normal Albumin/globu sulma Ratio FREIDA ([facility]) ID Date Data Source [id number] 05/16/2020 05:24:00 PM EST FREIDA ([facility]) Name Value Range Interpretation Code Description Data Stephanie rce(s) Supporting Document(s) hemoglobin 13.4 g/dL 13.5-17.5 Below low normal Hemoglobin FREIDA ( [facility]) red blood count 5.36 10 4.30-6.10 normal Red Blood Count ATHE NA ([facility]) white blood count 7.6 10 4.0-10.0 normal White Blood Count FREIDA ([facility]) hematocrit 43.5 % 42.0-52.0 normal Hematocrit FREIDA ([facility]) mean corpuscular hemoglobin 25.0 pg 27.0-33.0 Below low nor mal Mean Corpuscular Hemoglobin FREIDA ([facility]) mean corpuscular HGB conc 30.8 g/dL 32.0-36.5 Below low luis felipe l Mean Corpuscular HGB Conc FREIDA ([facility]) mean corpuscular volume 81.2 fL 80.0-96.0 normal Mean Corpusc ular Volume FREIDA ([facility]) neutrophils % 66.5 % 36.0-66.0 Above high normal Neutrophils % A THENA ([facility]) platelet count, automated 183 10 150-450 normal Platelet C ount, Automated FREIDA ([facility]) red cell distribution width 15.2 % 11.5-14.5 Above high no rmal Red Cell Distribution Width FREIDA ([facility]) mono % 4.2 % 0.0-5.0 normal [place] % FREIDA ([facility]) eos % 3.8 % 0.0-3.0 Above high normal Eos % FREIDA ([facility]) baso % 0.4 % 0.0-1.0 normal Baso % FREIDA ([facility]) lymph % 24.6 % 24.0-44.0 normal Lymph % FREIDA ([facility]) neutrophils # 5.1 10 1.5-8.5 normal Neutrophils # FREIDA ( [facility]) lymph # 1.9 10 1.5-5.0 normal Lymph # FREIDA ([facility]) nucleated red blood cell % 0.0 % 0-0 normal Nucleated Red Blood Cell % FREIDA ([facility]) immature granulocyte % 0.5 % 0-3.0 normal Immature Gran ulocyte % FREIDA ([facility]) eos # 0.3 10 0.0-0.5 normal Eos # FREIDA ([facility]) baso # 0.0 10 0.0-0.2 normal Baso # FREIDA ([facility]) mono # 0.3 10 0.0-0.8 normal [place] # FREIDA ([facility]) ID Date Data Source [id number] 03/06/2020 12:55:00 PM EDT [facility] ([facility], ) Name Value Range Interpretation Code Description Data Stephanie rce(s) Supporting Document(s) Gram Stain Laboratory test result Normal (applies to non-n umeric results) [facility] ([facility] ) FEW RBCS NO ORGANISMS SEEN Abscess Culture Laboratory test result [facility] ([facility]) If aerobic or anaerobic growth is detected within the next 7-21 days, an addendum will follow. . . FULL REPORT IN LAB NOTES ([facility] NO GROWTH AEROBICALLY ID Date Data Source [id number] 01/20/2020 02:22:00 PM EDT [facility] ([facility]) Name Value Range Interpretation Code Description Data Stephanie rce(s) Supporting Document(s) Surgical pathology study Laboratory test result [facility] ([facility], ) FINAL DIAGNOSIS Seroma capsule, resection: [...] M.D. 01/24/2020 1141 ID Date Data Source [id number] 01/19/2020 08:36:00 AM EDT [facility] ([facility], ) Name Value Range Interpretation Code Description Data Stephanie rce(s) Supporting Document(s) Respiratory Panel Laboratory test result [facility] ([facility], ) This respiratory PCR panel detects [...] - SARS-CoV-2 (COVID19) ID Date Data Source [id number] 01/17/2020 09:50:00 AM EDT [facility] Name Value Range Interpretation Code Description Data Stephanie e(s) Supporting Document(s) SARS coronavirus 2 RNA [facility] This lab was ordered by [facility] and reported by [facility]. ID Date Data Source [id number] 01/10/2020 02:10:04 PM EDT [facility] Measurements & CalculationsHeight: 65 inches (5 ft. [...] [facility] healthcare provider[facility] date reported today: 12/20/2019Have you seen [...] Medical History:hernia Surgical History:gall bladder removedappendix removedhernia [id number] removed from right breast areahernia repair Family [...] during this visit, including review of any bpie-lug-ofkijgx medications, herbal therapies, and/or supplements.Allergy ReviewAllergy List [...] is? FairAssessment & Plan Problems:Assessed:Umbilical hernia (ICD-553.1) (JUU60-D60.9) Assessment: Instructions: Cleared/low risk and optimized for [...] Orders:Adult - Ofc Vst, EST, Level III [CPT-61049] Name Value Range Interpretation Code Description Data Stephanie rce(s) Supporting Document(s) ID Date Data Source [id number] 12/20/2019 11:49:00 AM EDT [facility] ([facility], ) Name Value Range Interpretation Code Description Data Stephanie rce(s) Supporting Document(s) Wound Culture Laboratory test result Normal (applies t o non-numeric results) [facility] ([facility] ) FULL REPORT IN LAB NOTES ([facility] Gram Stain Laboratory test result Normal (applies to non-n umeric results) [facility] ([facility] ) NO CELLS SEEN NO ORGANISMS SEEN ID Date Data Source [id number] 12/20/2019 11:49:00 AM EDT [facility] ([facility], ) Name Value Range Interpretation Code Description Data Stephanie rce(s) Supporting Document(s) Bacteria identified in Unspecified specimen by Culture Laborator y test result [facility] ([facility] ) ID Date Data Source [id number] 12/02/2019 01:05:01 PM EDT [facility] Measurements & CalculationsHeight: 65 inches (5 ft. [...] you seen another healthcare provider? Yes - [facility]- general surgeonHealthcare provider date reported today: 11/15/2019Have [...] Medical History:hernia Surgical History:gall bladder removedappendix removedhernia [id number] removed from right breast areahernia repair Family [...] during this visit, including review of any fswl-onp-eqfzysw medications, herbal therapies, and/or supplements.Allergy ReviewAllergy List [...] sooner as needed.Obstructive sleep apnea syndrome (ICD-327.23) ([id number]) Assessment: Instructions: Refer to pulomary for possible [...] Orders:Adult - Ofc Vst, EST, Level III [CPT-42474] Pulmonology Consult [CPT-03096] Medications:PANTOPRAZOLE SODIUM 40 MG ORAL TABLET DELAYED RELEASE (PANTOPRAZOLE SODIUM) One tablet by mouth every day #30[Tablet] x 2 Route:ORAL Entered and Authorized by: David Valencia MD Method used: Electronically to [facility] (retail) [place] [address] Fax: Note to Pharmacy: Route: ORAL; RxID: [id number] PEPCID 20 MG ORAL TABLET (FAMOTIDINE) take one tablet by mouth twice daily #60[Tablet] x 2 Route:ORAL Entered by: Sonia De La Torre Authorized by: Emma INGRAM Method used: Electronically to [facility] (retail) [place] [id number] RxID: [id number] signed by David Valencia MD on 12/02/2019 at 2:26 PM Name Value Range Interpretation Code Description Data Stephanie rce(s) Supporting Document(s) ID Date Data Source [id number] 07/19/2019 03:39:00 PM EST [facility] ([facility]) Name Value Range Interpretation Code Description Data Stephanie rce(s) Supporting Document(s) Bacteria identified in Unspecified specimen by Culture Laborator y test result [facility] ([facility]) Procedure Vital Signs ID Date Data Source [id number] Name Value Range Interpretation Code Description Data Source(s) Body surface area Derived from formula 2.53 m2 2.53 m2 [facility] ([facility] ) Body weight 161.538 kg 161.538 kg [facility] ([facility]) [place] body weight 136 [lb_av] 136 [lb_av] MEDEN T ([facility] ) Body mass index (BMI) [Ratio] 59.3 kg/m2 59.3 k g/m2 [facility] ([facility]) Body weight 356.12 [lb_av] 356.12 [lb_av] MEDEN T ([facility] ) Body height 65 [in_i] 65 [in_i] [facility] ([facility]) 5'5" Heart rate 102 /min 102 /min [facility] ([facility]) Diastolic blood pressure 87 mm[Hg] 87 mm[Hg] [facility] ([facility]) Systolic blood pressure 138 mm[Hg] 138 mm[Hg] M EDENT ([facility]) Body weight 5986 [oz_av] 5986 [oz_av] FREIDA ([facility]) Systolic blood pressure 132 mm[Hg] 132 mm[Hg] A THENA ([facility]) Body mass index (BMI) [Ratio] 62.3 kg/m2 62.3 k g/m2 FREIDA ([facility]) Body height 65 [in_i] 65 [in_i] FREIDA ([facility]) Diastolic blood pressure 88 mm[Hg] 88 mm[Hg] FREIDA ([facility]) Body surface area Derived from formula 2.60 m2 2.60 m2 [facility] ([facility]) Body weight 172.878 kg 172.878 kg [facility] ([facility]) [place] body weight 136 [lb_av] 136 [lb_av] MEDEN T ([facility]) Body mass index (BMI) [Ratio] 63.4 kg/m2 63.4 k g/m2 [facility] ([facility]) Body weight 381.12 [lb_av] 381.12 [lb_av] MEDEN T ([facility]) Body height 65 [in_i] 65 [in_i] [facility] ([facility]) 5'5" Heart rate 74 /min 74 /min [facility] ([facility]) Diastolic blood pressure 84 mm[Hg] 84 mm[Hg] [facility] ([facility]) Systolic blood pressure 151 mm[Hg] 151 mm[Hg] [facility] ([facility]) Body surface area Derived from formula 2.59 m2 2.59 m2 [facility] ([facility]) Body weight 171.007 kg 171.007 kg [facility] ([facility]) [place] body weight 136 [lb_av] 136 [lb_av] MEDEN T ([facility]) Body mass index (BMI) [Ratio] 62.7 kg/m2 62.7 k g/m2 [facility] ([facility]) Body weight 377.00 [lb_av] 377.00 [lb_av] MEDEN T ([facility]) Body height 65 [in_i] 65 [in_i] [facility] ([facility]) 5'5" Diastolic blood pressure 64 mm[Hg] 64 mm[Hg] [facility] ([facility]) Systolic blood pressure 138 mm[Hg] 138 mm[Hg] [facility] ([facility]) Body surface area Derived from formula 2.59 m2 2.59 m2 [facility] ([facility]) Body weight 171.574 kg 171.574 kg [facility] ([facility]) [place] body weight 136 [lb_av] 136 [lb_av] MEDEN T ([facility]) Body mass index (BMI) [Ratio] 62.9 kg/m2 62.9 k g/m2 [facility] ([facility]) Body weight 378.25 [lb_av] 378.25 [lb_av] MEDEN T ([facility]) Body height 65 [in_i] 65 [in_i] [facility] ([facility]) 5'5" Diastolic blood pressure 87 mm[Hg] 87 mm[Hg] [facility] ([facility]) Systolic blood pressure 130 mm[Hg] 130 mm[Hg] [facility] ([facility]) Body surface area Derived from formula 2.60 m2 2.60 m2 [facility] ([facility]) Body weight 172.084 kg 172.084 kg [facility] ([facility]) [place] body weight 136 [lb_av] 136 [lb_av] MEDEN T ([facility]) Body mass index (BMI) [Ratio] 63.1 kg/m2 63.1 k g/m2 [facility] ([facility]) Body weight 379.38 [lb_av] 379.38 [lb_av] MEDEN T ([facility]) Body height 65 [in_i] 65 [in_i] [facility] ([facility]) 5'5" Body mass index (BMI) [Ratio] 61.1 kg/m2 61.1 k g/m2 [facility] ([facility] Heart rate 77 /min 77 /min [facility] ([facility] Diastolic blood pressure 90 mm[Hg] 90 mm[Hg] [facility] ([facility] Systolic blood pressure 137 mm[Hg] 137 mm[Hg] M EDENT ([facility] Body weight 367.00 [lb_av] 367.00 [lb_av] MEDEN T ([facility] Body height 65 [in_i] 65 [in_i] [facility] ([facility] 5'5" Body weight 174.352 kg 174.352 kg [facility] ([facility]) [place] body weight 136 [lb_av] 136 [lb_av] MEDEN T ([facility]) Body mass index (BMI) [Ratio] 64.0 kg/m2 64.0 k g/m2 [facility] ([facility]) Body weight 384.38 [lb_av] 384.38 [lb_av] MEDEN T ([facility]) Body height 65 [in_i] 65 [in_i] [facility] ([facility], ) 5'5" Heart rate 72 /min 72 /min [facility] ([facility], ) Diastolic blood pressure 85 mm[Hg] 85 mm[Hg] [facility] ([facility]) Systolic blood pressure 127 mm[Hg] 127 mm[Hg] [facility] ([facility]) Body mass index (BMI) [Ratio] 61.6 kg/m2 61.6 k g/m2 [facility] ([facility], [facility]) Body height 65 [in_i] 65 [in_i] [facility] ([facility], [facility]) 5'5" Body weight 370.00 [lb_av] 370.00 [lb_av] MEDEN T ([facility], [facility]) Body temperature 97.8 [degF] 97.8 [degF] [facility] ([facility], [facility]) Oxygen saturation in Arterial blood by Pulse oximetry 97 % 97 % [facility] ([facility], [facility]) Respiratory rate 18 /min 18 /min [facility] ( [facility], [facility]) Heart rate 66 /min 66 /min [facility] ([facility], [facility]) Diastolic blood pressure 93 mm[Hg] 93 mm[Hg] [facility] ([facility], [facility]) Systolic blood pressure 126 mm[Hg] 126 mm[Hg] [facility] ([facility], [facility]) Body weight 177.017 kg 177.017 kg [facility] ([facility]) Body mass index (BMI) [Ratio] 64.9 kg/m2 64.9 k g/m2 [facility] ([facility]) Body weight 390.25 [lb_av] 390.25 [lb_av] MEDEN T ([facility]) Body height 65 [in_i] 65 [in_i] [facility] ([facility]) 5'5" Diastolic blood pressure 90 mm[Hg] 90 mm[Hg] [facility] ([facility]) Systolic blood pressure 154 mm[Hg] 154 mm[Hg] [facility] ([facility]) Body weight 175.600 kg 175.600 kg [facility] ([facility]) Body mass index (BMI) [Ratio] 64.4 kg/m2 64.4 k g/m2 [facility] ([facility]) Body weight 387.12 [lb_av] 387.12 [lb_av] MEDEN T ([facility]) Body height 65 [in_i] 65 [in_i] [facility] ([facility]) 5'5" Diastolic blood pressure 100 mm[Hg] 100 mm[Hg] [facility] ([facility]) Systolic blood pressure 180 mm[Hg] 180 mm[Hg] M [facility] ([facility]) Body weight 174.806 kg 174.806 kg [facility] ([facility]) Body mass index (BMI) [Ratio] 64.1 kg/m2 64.1 k g/m2 [facility] ([facility]) Body weight 385.38 [lb_av] 385.38 [lb_av] MEDEN T ([facility]) Body height 65 [in_i] 65 [in_i] [facility] ([facility]) 5'5" Diastolic blood pressure 100 mm[Hg] 100 mm[Hg] [facility] ([facility]) Systolic blood pressure 148 mm[Hg] 148 mm[Hg] [facility] ([facility]) Body weight 6080 [oz_av] 6080 [oz_av] FREIDA ([facility]) Systolic blood pressure 136 mm[Hg] 136 mm[Hg] A THENA ([facility]) Body height 65 [in_i] 65 [in_i] FREIDA ([facility]) Diastolic blood pressure 88 mm[Hg] 88 mm[Hg] FREIDA ([facility]) Body weight 173.842 kg 173.842 kg [facility] ([facility]) Body mass index (BMI) [Ratio] 63.8 kg/m2 63.8 k g/m2 [facility] ([facility]) Body weight 383.25 [lb_av] 383.25 [lb_av] MEDEN T ([facility]) Body height 65 [in_i] 65 [in_i] [facility] ([facility]) 5'5" Diastolic blood pressure 96 mm[Hg] 96 mm[Hg] [facility] ([facility]) Systolic blood pressure 154 mm[Hg] 154 mm[Hg] M EDDELMY ([facility]) Body weight 6083.2 [oz_av] 6083.2 [oz_av] ATHEN A ([facility]) Systolic blood pressure 140 mm[Hg] 140 mm[Hg] A THENA ([facility]) Body height 65 [in_i] 65 [in_i] FREIDA ([facility]) Diastolic blood pressure 87 mm[Hg] 87 mm[Hg] FREIDA ([facility]) Body height 65 [in_i] 65 [in_i] [facility] ([facility]) 5'5" Body temperature 97.8 [degF] 97.8 [degF] [facility] ([facility]) Diastolic blood pressure 91 mm[Hg] 91 mm[Hg] [facility] ([facility]) Systolic blood pressure 139 mm[Hg] 139 mm[Hg] [facility] Body weight 172.368 kg 172.368 kg [facility] ([facility]) Body mass index (BMI) [Ratio] 63.2 kg/m2 63.2 k g/m2 [facility] ([facility]) Body weight 380.00 [lb_av] 380.00 [lb_av] [facility] Body weight 170.780 kg 170.780 kg [facility] ([facility]) Body mass index (BMI) [Ratio] 62.6 kg/m2 62.6 k g/m2 [facility] ([facility]) Body weight 376.50 [lb_av] 376.50 [lb_av] MEDEN T ([facility]) Body height 65 [in_i] 65 [in_i] [facility] ([facility]) 5'5" Body temperature 97.7 [degF] 97.7 [degF] [facility] ([facility]) Diastolic blood pressure 80 mm[Hg] 80 mm[Hg] [facility] ([facility]) Systolic blood pressure 120 mm[Hg] 120 mm[Hg] [facility] ([facility]) Body weight 172.878 kg 172.878 kg [facility] ([facility]) Body mass index (BMI) [Ratio] 63.4 kg/m2 63.4 k g/m2 [facility] ([facility]) Body weight 381.12 [lb_av] 381.12 [lb_av] MEDEN T ([facility]) Body height 65 [in_i] 65 [in_i] [facility] ([facility]) 5'5" Body temperature 97.7 [degF] 97.7 [degF] [facility] ([facility]) Heart rate 65 /min 65 /min [facility] ([facility]) Diastolic blood pressure 77 mm[Hg] 77 mm[Hg] [facility] ([facility]) Systolic blood pressure 122 mm[Hg] 122 mm[Hg] [facility] ([facility]) Body weight 170.554 kg 170.554 kg [facility] ([facility]) Body mass index (BMI) [Ratio] 62.6 kg/m2 62.6 k g/m2 [facility] ([facility]) Body weight 376.00 [lb_av] 376.00 [lb_av] [facility] Body height 65 [in_i] 65 [in_i] [facility] ([facility]) 5'5" Diastolic blood pressure 88 mm[Hg] 88 mm[Hg] [facility] ([facility]) Systolic blood pressure 144 mm[Hg] 144 mm[Hg] [facility] ([facility]) Body weight 169.250 kg 169.250 kg [facility] ([facility]) Body mass index (BMI) [Ratio] 62.1 kg/m2 62.1 k g/m2 [facility] ([facility]) Body weight 373.12 [lb_av] 373.12 [lb_av] BHAVIK T ([facility] ) Body height 65 [in_i] 65 [in_i] LUISA ([facility], ) 5'5" Diastolic blood pressure 85 mm[Hg] 85 mm[Hg] LUISA ([facility] ) Systolic blood pressure 130 mm[Hg] 130 mm[Hg] M JIM ([facility] ) Patient Treatment Plan of Care Planned Activity Planned Date Details Description Data Source (s) Sucralfate 1000 MG Oral Tablet FREIDA ([facility]) Acetaminophen 325 MG / Oxycodone Hydrochloride 5 MG Oral Tablet FREIDA ([facility]) meloxicam 7.5 MG Oral Tablet FREIDA ([facility]) Lidocaine 40 MG/ML Topical Cream FREIDA ([facility]) Ibuprofen 600 MG Oral Tablet FREIDA ([facility]) Cyclobenzaprine hydrochloride 10 MG Oral Tablet FREIDA ([facility]) chlorhexidine gluconate 1.2 MG/ML Mouthwash FREIDA ([facility]) Amoxicillin 875 MG / Clavulanate 125 MG Oral Tablet FREIDA ([facility]) Amoxicillin 500 MG Oral Capsule FREIDA ([facility]) ammonium lactate 120 MG/ML Topical Cream FREIDA ([facility])
[2020-08-12 01:39] LABS: CPK CREATINE PHOSPHOKINASE 121 U/L (39-308); MB/CK RELATIVE INDEX 1.65 (< OR =4); TROPONIN I < 0.02 NG/ML (< 0.10)
--- NOTE | 2020-08-12 02:05 | REPVR ---
PROCEDURE INFORMATION: Exam: CT Abdomen And Pelvis With Contrast Exam date and time: 08/12/2020 1:13 AM Age: 40 years old Clinical indication: Abdominal pain; Epigastric; Prior surgery; Surgery date: <1 month; Surgery type: Hernia mesh removal 08/03/20; Additional info: Hernia mesh removal 08/03, epigastric pain, nv since TECHNIQUE: Imaging protocol: Computed tomography of the abdomen and pelvis with contrast. Radiation optimization: All CT scans at this facility use at least one of these dose optimization techniques: automated exposure control; mA and/or kV adjustment per patient size (includes targeted exams where dose is matched to clinical indication); or iterative reconstruction. Contrast material: ISOVUE 370; Contrast volume: 100 ml; Contrast route: INTRAVENOUS (IV); COMPARISON: CT ABD/PEL W/IV CONTRAST ONLY 05/16/2020 6:57 PM FINDINGS: Liver: The liver is low attenuation indicating hepatic steatosis. Gallbladder and bile ducts: There has been prior cholecystectomy. No biliary duct dilation. Pancreas: Normal. No ductal dilation. Spleen: Normal. No splenomegaly. Adrenal glands: Normal. No mass. Kidneys and ureters: Normal. No hydronephrosis. Stomach and bowel: The proximal small bowel is dilated with air and fluid to the level of a transition point in the right lower quadrant (image 75, series 201). Small bowel distal to the transition point is completely decompressed. The colon is unremarkable. No pneumatosis. Appendix: No evidence of appendicitis. Intraperitoneal space: Unremarkable. No free air. No significant fluid collection. Vasculature: Unremarkable. No abdominal aortic aneurysm. Lymph nodes: Unremarkable. No enlarged lymph nodes. Urinary bladder: Unremarkable as visualized. Reproductive: Unremarkable as visualized. Bones/joints: Unremarkable. No acute fracture. Soft tissues: There is a midline anterior abdominal wall hernia containing peritoneal fat and some loops of small bowel. There is a drain in the hernia. Fluid collection is slightly decreased in size. IMPRESSION: 1. Distal small bowel obstruction with transition point in the right mid abdomen, possibly related to adhesions. 2. Anterior abdominal wall hernia containing nonobstructed small bowel and a small amount of fluid. Fluid collection in the hernia has slightly decreased in size. 3. Hepatic steatosis. Electronically signed by: Elmer Wilkins On 08/12/2020 02:05:02 AM
[2020-08-12] MEDS ORDERED: ONDA-83 PO (02:52)
[2020-08-12] MEDS ORDERED: PANT40TA29 PO (02:52)
[2020-08-12] MEDS ORDERED: OXYC1TAB23 PO (02:52)
--- OUTSIDE RECORDS SUMMARY | 2020-08-12 02:52 | CCD ---
Author Author [facility] Address Unknown Phone Unavailable Care Team Providers Care Recruitment And Outreach Assistant Name Role Phone Ermelinda REZA MD Unavailable [...] Unavailable Cynthia Valencia MD Unavailable Unavailable Cynthia Valenica MD Unavailable Unavailable Cynthia Valencia MD Unavailable [...] Unavailable Unavailable Cynthia Valencia MD Unavailable Unavailable Cnythia Valencia MD Unavailable Unavailable Cynthia Valencia MD Unavailable Unavailable Cynthia Valencia MD Unavailable Unavailable Sisseton, Olimpia Romeo Unavailable Unavailable Sisseton, Olimpia Romeo Unavailable Unavailable Heath, Olimpia Romeo Unavailable Unavailable Heath, Olimpia Romeo Unavailable Unavailable Heath, Olimpia Romeo Unavailable Unavailable Sisseton, Olimpia Romeo Unavailable Unavailable Heath, Olimpia Romeo Unavailable Unavailable Sisseton, Olimpia Romeo Unavailable Unavailable Cynthia Valencia MD [...] Cynthia Valencia MD Unavailable Unavailable Emma Patel CIGAR BINDER CIGAR BINDER Unavailable Unavailable LETTIERE, A COURTNEY PA Unavailable [...] is protected by Article 27-F of the [facility] Public Health law. If you continue you may have access to information: Regarding HIV / AIDS; Provided by facilities licensed or operated by the [facility] Office of Mental Health; or Provided by the [facility] Office for People With Developmental Disabilities. If such information is present, then the following [facility] mandated warning applies: This information has been [...] law may result in a fine or half-way sentence or both. A general authorization for the release of medical or other information is NOT sufficient authorization for further disc losure. Allergies and Adverse Reactions Type Description Substance Reaction Status Data Source(s ) Allergy to substance Allergy to substance Allergy to substance FREIDA ([facility]) Family History Family Member Name Family Member Gender Family Member Status Date o f Status Description Data Source(s) Unknown Male Problem MEDENT ([facility]) Unknown Male Problem MEDENT ([facility]) Unknown Male Problem MEDENT ([facility]) () Encounters Encounter Providers Location Date Indications Data Source(s ) David Valencia MD: [address] [place] [id number], Ph. Attender: David Valencia MD [facility] Medical 07/26/2020 12:00:00 AM EST [facility] ([facility]) Outpatient Attender: POLO BRAY [facility] Office 06/12 12:00:00 PM EST MEDENT ([facility] Outpatient Attender: CHERELLE Kapadia/Hyder/Vikas/ Reindl 06/26/2020 08:15:00 AM EST MEDENT ([facility]) Outpatient Attender: Romeo Kapadia/Hyder/Vikas/Reindl 06/13/2020 09:00:00 AM EST MEDENT ([facility]) Outpatient Attender: CHERELLE Kapadia/Hyder/Vikas/ Reindl 06/05/2020 08:45:00 AM EST MEDENT ([facility]) Outpatient Attender: CHERELLE Kapadia/Hyder/Vikas/ Reindl 05/22/2020 02:15:00 PM EST MEDENT ([facility]) Outpatient Attender: POLO BRAY [facility] Office 04/12 03:00:00 PM EDT MEDENT ([facility] Outpatient Attender: CHERELLE Kapadia/Hyder/Vikas/ Reindl 04/17/2020 10:30:00 AM EDT MEDENT ([facility]) Outpatient Attender: David Valencia MD FP 04/06/2020 06:10:00 PM EDT [facility] Outpatient Attender: COURTNEY moreno 03/30/2020 01:10:00 PM EDT MEDENT ([facility] Outpatient Attender: David Valencia MD FP 03/23/2020 10:40:00 AM EDT [facility] Office Visit Attender: Romeo Kapadia/Hyder/Vikas/Reindl 03/13/2020 10:30:00 AM EDT MEDENT ([facility]) Office Visit Attender: Romeo Kapadia/Hyder/Vikas/Reindl 02/28/2020 01:00:00 PM EDT MEDENT ([facility]) Outpatient Attender: Romeo Kapadia/Hyder/Vikas/Reindl 02/13/2020 10:00:00 AM EDT MEDENT ([facility]) Outpatient Attender: David Valencia MD FP 02/06/2020 12:41:00 PM EDT [facility] Outpatient Attender: Romeo Kapadia/Hyder/Vikas/Reindl 02/02/2020 09:00:00 AM EDT MEDENT ([facility]) Outpatient Attender: David Valencia MD FP 01/10/2020 03:07:01 PM EDT [facility] Outpatient Attender: David Valencia MD FP 01/09/2020 03:16:00 PM EDT [facility] Outpatient Attender: David CORTEZ 01/04/2020 02:17:00 PM EDT [facility] Outpatient Attender: David CORTEZ 12/21/2019 08:24:01 AM EDT [facility] Outpatient Attender: David CORTEZ 12/20/2019 02:27:00 PM EDT [facility] Outpatient Attender: CHERELLE Kapadia/Hyder/Vikas/ Reindl 12/20/2019 11:20:00 AM EDT MEDENT ([facility]) Outpatient Attender: David Valencia MD FP 12/07/2019 01:47:00 PM EDT [facility] Outpatient Attender: David Valencia MD FP 12/02/2019 02:53:00 PM EDT [facility] Outpatient Attender: David CORTEZ 12/02/2019 02:27:01 PM EDT [facility] Outpatient Attender: David CORTEZ 12/02/2019 02:08:00 PM EDT [facility] Outpatient Attender: David Valencia MD FP 12/02/2019 02:04:01 PM EDT [facility] Outpatient Attender: David Valencia MD FP 12/02/2019 02:03:00 PM EDT [facility] Outpatient Attender: David Valencia MD FP 12/02/2019 01:04:00 PM EDT [facility] Outpatient Attender: David Valencia MD FP 12/02/2019 01:03:01 PM EDT [facility] Outpatient Attender: David Valencia MD 11/30/2019 09:01:03 PM EDT [facility] Outpatient Attender: David Valencia MD 11/30/2019 09:51:11 AM EDT [facility] Outpatient Attender: CHERELLE Kapadia/Hyder/Vikas/ Reindl 11/15/2019 10:20:00 AM EDT MEDENT ([facility]) Outpatient Attender: David Valencia MD 11/09/2019 04:35:00 PM EDT [facility] Outpatient Attender: CHERELLE Kapadia/Hyder/Vikas/ Reindl 10/18/2019 11:30:00 AM EDT MEDENT ([facility]) Outpatient Attender: CHERELLE Kapadia/Hyder/Vikas/ Reindl 10/04/2019 10:20:00 AM EDT MEDENT ([facility]) Outpatient 09/01/2019 01:24:00 PM EST [facility] Outpatient 08/23/2019 01:31:00 PM EST [facility] Outpatient Attender: CHERELLE Kapadia/Hyder/Vikas/ Reindl 08/23/2019 10:15:00 AM EST MEDENT ([facility] Outpatient 08/12/2019 01:03:00 PM [facility] Outpatient Attender: JUAN JOSE CORTEZ 07/06/2019 09:01:07 P M [facility] Medications Medication Brand Name Start Date Product Form Dose Route Admi nistrative Instructions Pharmacy Instructions Status Indications Reaction Description Data Source(s) Acetaminophen 325 MG / Oxycodone Hydrochloride 5 MG Or al Tablet [Percocet] Percocet 08/09/2020 12:00:00 AM EST ORAL active MEDENT ([facility], ) Ondansetron 4 MG Oral Tablet [Zofran] Zofran 08/09/2020 12:00:00 AM EST active MED[facility] ([facility] ) ammonium lactate 120 MG/ML Topical Cream Ammonium Lactate 06/29/2020 12:00:00 AM EST active [facility] ([facility] Urea 400 MG/ML Topical Cream Urea 04/24/2020 12:00:00 AM EDT active MED[facility] ([facility] Acetaminophen 325 MG / Oxycodone Hydrochloride 5 MG Or al Tablet [Percocet] Percocet 04/17/2020 12:00:00 AM EDT ORAL completed MEDENT ([facility], ) Cyclobenzaprine hydrochloride 10 MG Oral Tablet Cyclobenzapr ine HCL 03/30/2020 12:00:00 AM EDT active M EDENT ([facility]) No Active Medications 03/30/2020 12:00:00 AM EDT completed MEDENT ([facility]) Ibuprofen 800 MG Oral Tablet Ibuprofen 03/30/2020 12:00:00 AM EDT active MEDENT ([facility]) Abdominal Binder/Elastic/3X-Large 03/13/2020 12:00:00 AM EDT active MEDENT ([facility], ) Acetaminophen 325 MG / Oxycodone Hydrochloride 5 MG Or al Tablet [Percocet] Percocet 01/18/2020 12:00:00 AM EDT ORAL completed MEDENT ([facility], ) Sucralfate 1000 MG Oral Tablet [Carafate] Carafate 10/04/2019 1 2:00:00 AM EDT active MEDENT ([facility], ) meloxicam 7.5 MG Oral Tablet Meloxicam 08/23/2019 12:00:00 AM EST active MEDENT ([facility], ) pantoprazole 40 MG Delayed Release Oral Tablet [Protonix] Pr otonix 07/07/2019 12:00:00 AM EST ORAL active M EDENT ([facility], ) Ibuprofen 600 MG Oral Tablet Ibuprofen 04/12/2019 12:00:00 AM EDT ORAL completed MEDENT ([facility], ) Acetaminophen 325 MG / Oxycodone Hydrochloride 5 MG Or al Tablet [Percocet] Percocet 04/12/2019 12:00:00 AM EDT ORAL completed MEDENT ([facility], ) meloxicam 7.5 MG Oral Tablet meloxicam 7 .5 mg tablet TAKE ONE TABLET BY MOUTH TWICE DAILY meloxicam 7.5 mg tablet TAKE ONE TABLET BY MOUTH TWICE DAILY completed meloxicam 7.5 MG Ora l Tablet [place] ([facility]) ammonium lactate 120 MG/ML Topical Cream ammonium lactate 12 % topical cream APPLY TOPICALLY TO FEET ONCE DAILY ammonium lactate 12 % topical cream APPL Y TOPICALLY TO FEET ONCE DAILY completed ammonium lactate 120 MG/ML Topical Cream [place] ([facility]) chlorhexidine gluconate 1.2 MG/ML Mouthw crispin chlorhexidine gluconate 0.12 % mouthwash RINSE AND SPIT ONE CAPFUL BY MOUTH THREE TIMES DAILY BEGINNING TOMORROW chlorhexidine gluconate 0.12 % mouthwash RINSE AND SPIT ONE CAPFUL BY MOUTH THREE TIMES DAILY BEGINNING TOMORROW completed chlorhexidine gluconate 1.2 MG/ML Mouthwash [place] ([facility]) Acetaminophen 325 MG / Oxycodone [...] hydrochloride 5 MG Oral Tablet FREIDA ([facility]) Amoxicillin 875 MG / Clavulanate 125 MG Oral Tablet amoxicillin 875 mg-potassium clavulanate 125 mg tablet TAKE ONE TABLET BY MOUTH TWICE DAILY amoxicillin 875 mg-potassium clavulanate 125 mg tablet TAKE ONE TABLET BY MOUTH TWICE DAILY completed amoxicillin 875 MG / c lavulanate 125 MG Oral Tablet [place] ([facility]) Ibuprofen 600 MG Oral Tablet ibuprofen 6 00 mg tablet TAKE ONE TABLET BY MOUTH THREE TIMES DAILY WITH FOOD ibuprofen 600 mg tablet TAKE ONE TABLET BY MOUTH THREE TIMES DAILY WITH FOOD completed ibuprofen 600 MG Oral Tablet [place] ([facility]) Cyclobenzaprine hydrochloride 10 MG Oral Tablet cyclobenzaprine 10 mg tablet TAKE ONE TABLET BY MOUTH EVERY EIGHT HOURS NEEDED cyclobenzaprine 10 mg tablet TAKE ONE TABLET BY MOUTH EVERY EIGHT HOURS NEEDED completed cyclobenzaprine hydrochloride 10 MG Oral Tablet [place] ([facility]) Sucralfate 1000 MG Oral Tablet sucralfat e 1 gram tablet TAKE ONE TABLET BY MOUTH TWICE DAILY sucralfate 1 gram tablet TAKE ONE TABLET BY MOUTH TWICE DAILY completed sucralfate 1000 MG Ora l Tablet [place] ([facility]) Amoxicillin 500 MG Oral Capsule amoxicil sulma 500 mg capsule TAKE ONE CAPSULE BY MOUTH EVERY 8 HOURS NEEDED amoxicillin 500 mg capsule TAKE ONE CAPS ULE BY MOUTH EVERY 8 HOURS NEEDED complete d amoxicillin 500 MG Oral Capsule [place] ([facility]) Lidocaine 40 MG/ML Topical Cream lidocai ne 4 % topical cream apply thin layer TO affected AREA ON back EVERY 8 HOURS NEEDED DIRECTED lidocaine 4 % topical cream apply thin layer TO affected AREA ON back EVERY 8 HOURS NEEDED DIRECTED completed lidocaine 40 MG/ML Topical Cream [place] ([facility]) Insurance Providers Payer name Policy type / Coverage type Policy ID Covered democrat ID Covered democrat's relationship to craft Policy Craft Plan Information [facility] COMMUNITY PLAN [facility] [id number] SP [id number] [facility]) O [id number] S [id number] Medicaid S [id number] S [id number] Managed Care [facility] Community Plan P [id number] S [id number] [facility] [id number] SP [id number] [facility] SP 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 P [id number] S [id number] Medicaid S [id number] S [id number] Managed Care - Community Plan [facility] P [id number] S [id number] Medicaid S [id number] S [id number] [facility] Communty Plan Medicaid [id number] Self [id number] Managed Care - Community Plan [facility] P [id number] S [id number] [facility] Communty Plan Medicaid [id number] Self [id number] [facility] Community Plan Commercial [id number] Self [id number] [facility] Neel/MCR Health Maintenance Organization (HMO) [id number] Self [id number] Medicaid P [id number] S [id number] MEDICAID M [id number] S [id number] [employer] [place] 306/806 [id number] SP [id number] [place] 306/806 [id number] SP [id number] [employer] BCBS B [id number] S [id number] [place] [place] 306/806 [id number] SELF PAY ONLY [id number] SP [id number] UN COMMUNITY PLAN [facility] [id number] SP [id number] [facility] Hmo Commercial [id number] Self [id number] [facility] Hmo Commercial Self D Managed Care [facility] P [id number] S [id number] Problems, Conditions, and Diagnoses Code Display Name Description Problem Type Effective Dates Data Source(s) 144360726 Anemia Anemia Problem 07/26/2020 12:00:00 AM BRITTANY GUAN ([facility]) Corns and callosities Corns and callosities Problem 05/08/2020 12:00:00 AM EDT MEDENT ([facility] [id number] Pronation Pronation Problem 05/08/2020 12:00:00 AM ED T MEDENT ([facility] [id number] Pronation Pronation Problem 05/08/2020 12:00:00 AM ED T MEDENT ([facility] [id number] Plantar fascial fibromatosis Plantar fascial fibromato sis Problem 05/08/2020 12:00:00 AM EDT MEDENT ([facility] Surgeries/Procedures Procedure Description Date Indications Data Source(s) Fine Needle Aspiration W/O Imag 04/17/2020 12:00:00 AM EDT MEDENT ([facility], ) Therapeutic, Prophylactic Or Diagnostic Injection Subq/Im 03/30/2020 12:00:00 AM EDT MEDENT ([facility]) Excise Benign Lesion > 4CM Trunk/Arm/Leg 01/20/2020 12:00:00 AM EDT MEDENT ([facility], ) I & D Hematoma 07/19/2019 12:00:00 AM EST MEDENT ([facility], ) Results ID Date Data Source [id number] 07/29/2020 09:00:00 AM EST [facility] Name Value Range Interpretation Code Description Data Stephanie rce(s) Supporting Document(s) SARS coronavirus 2 RNA Not Detected [facility] [place] This lab was ordered by [facility] and reported by [facility]. ID Date Data Source [id number] 06/05/2020 09:37:00 PM EST FREIDA ([facility]) Name Value Range Interpretation Code Description Data Stephanie rce(s) Supporting Document(s) lipase 90 U/L 73-393 normal Lipase FREIDA ([facility]) ID Date Data Source [id number] 06/05/2020 09:37:00 PM EST FREIDA ([facility]) Name Value Range Interpretation Code Description Data Stephanie rce(s) Supporting Document(s) blood urea nitrogen 11 mg/dL 7-18 normal Blood Urea Nitro gen FREIDA ([facility]) glucose, fasting 84 mg/dL 70-100 normal Glucose, Fasting AT [facility]) potassium serum 4.2 mEq/L 3.5-5.1 normal Potassium Serum ATHE ([facility]) creatinine for GFR 0.96 mg/dL 0.70-1.30 normal Creatinine for GF R [place] ([facility]) sodium level 140 mEq/L 136-145 normal Sodium Level FREIDA ([facility]) glomerular filtration rate > 60.0 >60 normal Glomerula r Filtration Rate FREIDA ([facility]) carbon dioxide level 30 mEq/L 21-32 normal Carbon Dioxide Level [place] ([facility]) chloride level 103 mEq/L 98-107 normal Chloride Level [place] ([facility]) calcium level 8.8 mg/dL 8.5-10.1 normal Calcium Level [place] ( [facility]) anion gap 7 mEq/L 8-16 Below low normal Anion Gap [place] ( [facility]) ID Date Data Source [id number] 06/05/2020 09:37:00 PM EST FREIDA ([facility]) Name Value Range Interpretation Code Description Data Stephanie rce(s) Supporting Document(s) AST/SGOT 21 U/L 7-37 normal AST/SGOT [place] ([facility]) ALT/SGPT 29 U/L 12-78 normal ALT/SGPT [place] ([facility]) bilirubin,direct < 0.1 0.0-0.2 normal Bilirubin,direct AT [facility]) bilirubin,total 0.3 mg/dL 0.2-1.0 normal Bilirubin,total ATHE ([facility]) alkaline phosphatase 132 U/L 45-117 Above high normal Alkaline Phosphatase [place] ([facility]) total protein 7.5 gm/dL 6.4-8.2 normal Total Protein [place] ( [facility]) albumin/globulin ratio normal Albumin/globu sulma Ratio F[place] ([facility]) albumin 3.5 gm/dL 3.2-5.2 normal Albumin [facility] ([facility]) ID Date Data Source [id number] 06/05/2020 09:37:00 PM EST FREIDA ([facility]) Name Value Range Interpretation Code Description Data Stephanie rce(s) Supporting Document(s) white blood count 9.9 10 4.0-10.0 normal White Blood Count F[place] ([facility]) red blood count 5.01 10 4.30-6.10 normal Red Blood Count ATHE ([facility]) hemoglobin 12.4 g/dL 13.5-17.5 Below low normal Hemoglobin F[place]IDA ( [facility]) mean corpuscular volume 80.8 fL 80.0-96.0 normal Mean Corpusc ular Volume FREIDA ([facility]) mean corpuscular hemoglobin 24.8 pg 27.0-33.0 Below low nor mal Mean Corpuscular Hemoglobin FREIDA ([facility]) hematocrit 40.5 % 42.0-52.0 Below low normal Hematocrit FREIDA ( [facility]) mean corpuscular HGB conc 30.6 g/dL 32.0-36.5 Below low luis felipe l Mean Corpuscular HGB Conc FREIDA ([facility]) red cell distribution width 15.3 % 11.5-14.5 Above high no rmal Red Cell Distribution Width RFEIDA ([facility]) platelet count, automated 168 10 150-450 normal Platelet C ount, Automated FREIDA ([facility]) mono % 5.1 % 0.0-5.0 Above high normal Union % FREIDA ([facility]) neutrophils % 68.0 % 36.0-66.0 Above high normal Neutrophils % A THENA ([facility]) lymph % 23.4 % 24.0-44.0 Below low normal Lymph % FREIDA ( [facility]) baso % 0.3 % 0.0-1.0 normal Baso % [place] ([facility]) immature granulocyte % 0.4 % 0-3.0 normal Immature Gran ulocyte % FREIDA ([facility]) eos % 2.8 % 0.0-3.0 normal Eos % [place] ([facility]) neutrophils # 6.8 10 1.5-8.5 normal Neutrophils # FREIDA ( [facility]) nucleated red blood cell % 0.0 % 0-0 normal Nucleated Red Blood Cell % FRE[place] ([facility]) lymph # 2.3 10 1.5-5.0 normal Lymph # [place] ([facility]) mono # 0.5 10 0.0-0.8 normal [place] # [place] ([facility]) baso # 0.0 10 0.0-0.2 normal Baso # [facility]RE[place] ([facility]) eos # 0.3 10 0.0-0.5 normal Eos # FREIDA ([facility]) ID Date Data Source [id number] 05/30/2020 09:00:00 AM EST [facility] Name Value Range Interpretation Code Description Data Stephanie rce(s) Supporting Document(s) Bacteria identified in Unspecified specimen by Anaerob e culture Laboratory test result MEDENT ([facility], ) If anaerobic or aerobic growth is detected within the next 7-21 days, an addendum will follow. . . FULL REPORT IN LAB NOTES (eCW and Medent). NO GROWTH ANAEROBICALLY ID Date Data Source [id number] 05/30/2020 09:00:00 AM EST MEDENT ([facility], ) Name Value Range Interpretation Code Description Data Stephanie rce(s) Supporting Document(s) Gram Stain Laboratory test result Normal (applies to non-n umeric results) MEDENT ([facility]) MANY RBCS NO ORGANISMS SEEN Abscess Culture Laboratory test result [facility] ([facility]) If aerobic or anaerobic growth is detected within the next 7-21 days, an addendum will follow. . . FULL RE[facility] NO GROWTH AEROBICALLY ID Date Data Source [id number] 05/30/2020 09:00:00 AM EST FREIDA ([facility]) Name Value Range Interpretation Code Description Data Stephanie rce(s) Supporting Document(s) ID Date Data Source [id number] 05/30/2020 09:00:00 AM EST RFEIDA ([facility]) Name Value Range Interpretation Code Description Data Stephanie rce(s) Supporting Document(s) ID Date Data Source [id number] 05/30/2020 09:00:00 AM EST FREIDA ([facility]) Name Value Range Interpretation Code Description Data Stephanie rce(s) Supporting Document(s) ID Date Data Source [id number] 05/22/2020 03:39:00 PM EST MEDENT ([facility], ) Name Value Range Interpretation Code Description Data Stephanie rce(s) Supporting Document(s) Gram Stain Laboratory test result Normal (applies to non-n umeric results) [facility] FEW WBCS FEW RBCS NO ORGANISMS SEEN Wound Culture [facility] If aerobic or anaerobic growth is detected within the next 7-21 days, an addendum will follow. . . FULL REPORT IN LAB NOTES (eCW and [facility]). NO GROWTH AEROBICALLY ID Date Data Source [id number] 05/16/2020 05:30:00 PM EST [place] ([facility]) Name Value Range Interpretation Code Description Data Stephanie rce(s) Supporting Document(s) istat HCT 43.0 % 38.0-51.0 normal Istat HCT [place] ([facility]) istat potassium 4.4 mEq/L 3.5-5.1 normal Istat Potassium ATHE NA ([facility]) istat glucose 87 mg/dL 70-105 normal Istat Glucose [place] ( [facility]) istat chloride 100 mEq/L 98-109 normal Istat Chloride [place] ([facility]) istat sodium 139 mEq/L 136-145 normal Istat Sodium [facility] ([facility]) istat Ca++ 4.8 mg/dL 4.5-5.3 normal Istat Ca++ [place] ([facility]) istat BUN 12 mg/dL 8-26 normal Istat BUN [place] ([facility]) istat CO2 29.0 mm/L 23.0-27.0 Above high normal Istat CO2 [place] ([facility]) istat creatinine 1.0 mg/dL 0.6-1.3 normal Istat Creatinine AT [facility] ([facility]) ID Date Data Source [id number] 05/16/2020 05:25:00 PM EST [place] ([facility]) Name Value Range Interpretation Code Description Data Stephanie rce(s) Supporting Document(s) lactic acid sepsis protocol 0.7 mmol/L 0.4-2.0 normal Lactic Acid Sepsis Protocol [place] ([facility]) ID Date Data Source [id number] 05/16/2020 05:24:00 PM EST [place]RE[place] ([facility]) Name Value Range Interpretation Code Description Data Stephanie rce(s) Supporting Document(s) lipase 76 U/L 73-393 normal Lipase FREIDA ([facility]) ID Date Data Source [id number] 05/16/2020 05:24:00 PM EST FREIDA ([facility]) Name Value Range Interpretation Code Description Data Stephanie rce(s) Supporting Document(s) AST/SGOT 18 U/L 7-37 normal AST/SGOT FREIDA ([facility]) alkaline phosphatase 127 U/L 45-117 Above high normal Alkaline Phosphatase FREIDA ([facility]) ALT/SGPT 29 U/L 12-78 normal ALT/SGPT FREIDA ([facility]) bilirubin,direct < 0.1 0.0-0.2 normal Bilirubin,direct AT [facility]) total protein 7.8 gm/dL 6.4-8.2 normal Total Protein FREIDA ( [facility]) albumin 3.5 gm/dL 3.2-5.2 normal Albumin FREIDA ([facility]) bilirubin,total 0.2 mg/dL 0.2-1.0 normal Bilirubin,total ATHE ([facility]) albumin/globulin ratio normal Albumin/globu sulma Ratio FREIDA ([facility]) ID Date Data Source [id number] 05/16/2020 05:24:00 PM EST FREIDA ([facility]) Name Value Range Interpretation Code Description Data Stephanie rce(s) Supporting Document(s) hemoglobin 13.4 g/dL 13.5-17.5 Below low normal Hemoglobin FREIDA ( [facility]) red blood count 5.36 10 4.30-6.10 normal Red Blood Count ATHE NA ([facility]) white blood count 7.6 10 4.0-10.0 normal White Blood Count FREIDA ([facility]) hematocrit 43.5 % 42.0-52.0 normal Hematocrit FREIDA ([facility]) mean corpuscular hemoglobin 25.0 pg 27.0-33.0 Below low nor mal Mean Corpuscular Hemoglobin FREIDA ([facility]) mean corpuscular HGB conc 30.8 g/dL 32.0-36.5 Below low luis felipe l Mean Corpuscular HGB Conc FREIDA ([facility]) mean corpuscular volume 81.2 fL 80.0-96.0 normal Mean Corpusc ular Volume FREIDA ([facility]) neutrophils % 66.5 % 36.0-66.0 Above high normal Neutrophils % A THENA ([facility]) platelet count, automated 183 10 150-450 normal Platelet C ount, Automated FREIDA ([facility]) red cell distribution width 15.2 % 11.5-14.5 Above high no rmal Red Cell Distribution Width FREIDA ([facility]) mono % 4.2 % 0.0-5.0 normal Union % FREIDA ([facility]) eos % 3.8 % 0.0-3.0 Above high normal Eos % FREIDA ([facility]) baso % 0.4 % 0.0-1.0 normal Baso % FREIDA ([facility]) lymph % 24.6 % 24.0-44.0 normal Lymph % FREIDA ([facility]) neutrophils # 5.1 10 1.5-8.5 normal Neutrophils # FREIDA ( [facility]) lymph # 1.9 10 1.5-5.0 normal Lymph # FREIDA ([facility]) nucleated red blood cell % 0.0 % 0-0 normal Nucleated Red Blood Cell % FREIDA ([facility]) immature granulocyte % 0.5 % 0-3.0 normal Immature Gran ulocyte % FREIDA ([facility]) eos # 0.3 10 0.0-0.5 normal Eos # FREIDA ([facility]) baso # 0.0 10 0.0-0.2 normal Baso # FREIDA ([facility]) mono # 0.3 10 0.0-0.8 normal Union # FREIDA ([facility]) ID Date Data Source [id number] 03/06/2020 12:55:00 PM EDT [facility] ([facility], ) Name Value Range Interpretation Code Description Data Stephanie rce(s) Supporting Document(s) Gram Stain Laboratory test result Normal (applies to non-n umeric results) [facility] ([facility], ) FEW RBCS NO ORGANISMS SEEN Abscess Culture Laboratory test result [facility] ([facility]) If aerobic or anaerobic growth is detected within the next 7-21 days, an addendum will follow. . . FULL REPORT IN LAB NOTES ([facility] NO GROWTH AEROBICALLY ID Date Data Source [id number] 01/20/2020 02:22:[address] [facility] ([facility]) Name Value Range Interpretation Code Description Data Stephanie rce(s) Supporting Document(s) Surgical pathology study Laboratory test result [facility] ([facility], ) FINAL DIAGNOSIS Seroma capsule, resection: [...] M.D. 01/24/2020 1141 ID Date Data Source [id number] 01/19/2020 08:36:00 AM EDT MED[facility] ([facility], ) Name Value Range Interpretation Code Description Data Stephanie rce(s) Supporting Document(s) Respiratory Panel Laboratory test result [facility] ([facility], ) This respiratory PCR panel detects [...] - SARS-CoV-2 (COVID19) ID Date Data Source [id number] 01/17/2020 09:50:00 AM EDT [facility] Name Value Range Interpretation Code Description Data Stephanie e(s) Supporting Document(s) SARS coronavirus 2 RNA [facility] This lab was ordered by [facility] and reported by [facility]. ID Date Data Source [id number] 01/10/2020 02:10:04 PM EDT [facility] Measurements & CalculationsHeight: 65 inches (5 [...] [facility] date reported today: 12/20/2019Have [...] Medical History:hernia Surgical History:gall bladder removedappendix removedhernia [id number] removed from right breast areahernia repair Family [...] during this visit, including review of any ysaz-ssx-dpuxttu medications, herbal therapies, and/or supplements.Allergy ReviewAllergy List [...] is? FairAssessment & Plan Problems:Assessed:Umbilical hernia (ICD-553.1) (AWA46-J22.9) Assessment: Instructions: Cleared/low risk and optimized for [...] Orders:Adult - Ofc Vst, EST, Level III [CPT-09436] Name Value Range Interpretation Code Description Data Stephanie rce(s) Supporting Document(s) ID Date Data Source [id number] 12/20/2019 11:49:00 AM EDT [facility] ([facility], ) Name Value Range Interpretation Code Description Data Stephanie rce(s) Supporting Document(s) Wound Culture Laboratory test result Normal (applies t o non-numeric results) [facility] ([facility], ) FULL REPORT IN LAB NOTES ([facility] Gram Stain Laboratory test result Normal (applies to non-n umeric results) [facility] ([facility], ) NO CELLS SEEN NO ORGANISMS SEEN ID Date Data Source [id number] 12/20/2019 11:49:00 AM EDT [facility] ([facility], ) Name Value Range Interpretation Code Description Data Stephanie rce(s) Supporting Document(s) Bacteria identified in Unspecified specimen by Culture Laborator y test result [facility] ([facility], ) ID Date Data Source [id number] 12/02/2019 01:05:01 PM EDT [facility] Measurements & CalculationsHeight: 65 inches (5 [...] you seen another healthcare provider? Yes - [facility] general surgeonHealthcare provider date reported today: 11/15/2019Have [...] Medical History:hernia Surgical History:gall bladder removedappendix removedhernia [id number] removed from right breast areahernia repair Family [...] during this visit, including review of any stul-mcs-casevwo medications, herbal therapies, and/or supplements.Allergy ReviewAllergy List [...] sooner as needed.Obstructive sleep apnea syndrome (ICD-327.23) (KKH63-G91.33) Assessment: Instructions: Refer to pulomary for possible [...] Orders:Adult - Ofc Vst, EST, Level III [CPT-21860] Pulmonology Consult [CPT-47121] Medications:PANTOPRAZOLE SODIUM 40 MG ORAL TABLET DELAYED RELEASE (PANTOPRAZOLE SODIUM) One tablet by mouth every day #30[Tablet] x 2 Route:ORAL Entered and Authorized by: David Valencia MD Method used: Electronically to [facility] (retail) [place] [address] Fax: Note to Pharmacy: Route: ORAL; RxID: [id number] PEPCID 20 MG ORAL TABLET (FAMOTIDINE) take one tablet by mouth twice daily #60[Tablet] x 2 Route:ORAL Entered by: Sonia De La Torre Authorized by: Emma INGRAM Method used: Electronically to [facility] [address] (retail) [place] [id number] RxID: [id number] signed by David Valencia MD on 12/02/2019 at 2:26 PM Name Value Range Interpretation Code Description Data Stephanie rce(s) Supporting Document(s) ID Date Data Source [id number] 07/19/2019 03:39:00 PM EST [facility] ([facility]) Name Value Range Interpretation Code Description Data Stephanie rce(s) Supporting Document(s) Bacteria identified in Unspecified specimen by Culture Laborator y test result [facility] ([facility]) Procedure Vital Signs ID Date Data Source UNK Name Value Range Interpretation Code Description Data Source(s) Body surface area Derived from formula 2.[address] [facility] ([facility], ) Body weight 161.[address] [facility] ([facility]) Wagoner body weight 136 [lb_av] 136 [lb_av] MEDEN T ([facility], ) Body mass index (BMI) [Ratio] 59.3 kg/m2 59.3 k g/m2 [facility] ([facility]) Body weight 356.12 [lb_av] 356.12 [lb_av] MEDEN T ([facility], ) Body height 65 [in_i] 65 [in_i] [facility] ([facility]) 5'5" Heart rate 102 /min 102 /min [facility] ([facility]) Diastolic blood pressure 87 mm[Hg] 87 mm[Hg] MEDENT ([facility]) Systolic blood pressure 138 mm[Hg] 138 mm[Hg] M EDENT ([facility]) Body weight 5986 [oz_av] 5986 [oz_av] FREIDA ([facility]) Systolic blood pressure 132 mm[Hg] 132 mm[Hg] A THENA ([facility]) Body mass index (BMI) [Ratio] 62.3 kg/m2 62.3 k g/m2 FREIDA ([facility]) Body height 65 [in_i] 65 [in_i] FREIDA ([facility]) Diastolic blood pressure 88 mm[Hg] 88 mm[Hg] FREIDA ([facility]) Body surface area Derived from formula 2.60 m2 2.60 m2 [facility] ([facility]) Body weight 172.878 kg 172.878 kg [facility] ([facility]) Wagoner body weight 136 [lb_av] 136 [lb_av] MEDEN T ([facility]) Body mass index (BMI) [Ratio] 63.4 kg/m2 63.4 k g/m2 [facility] ([facility]) Body weight 381.12 [lb_av] 381.12 [lb_av] MEDEN T ([facility]) Body height 65 [in_i] 65 [in_i] MEDENT ([facility]) 5'5" Heart rate 74 /min 74 /min [facility] ([facility]) Diastolic blood pressure 84 mm[Hg] 84 mm[Hg] [facility] ([facility]) Systolic blood pressure 151 mm[Hg] 151 mm[Hg] [facility] ([facility]) Body surface area Derived from formula 2.[address] [facility] ([facility]) Body weight 171.[address] [facility] ([facility]) Wagoner body weight 136 [lb_av] 136 [lb_av] MEDEN T ([facility]) Body mass index (BMI) [Ratio] 62.7 kg/m2 62.7 k g/m2 [facility] ([facility]) Body weight 377.00 [lb_av] 377.00 [lb_av] MEDEN T ([facility]) Body height 65 [in_i] 65 [in_i] [facility] ([facility]) 5'5" Diastolic blood pressure 64 mm[Hg] 64 mm[Hg] [facility] ([facility]) Systolic blood pressure 138 mm[Hg] 138 mm[Hg] [facility] ([facility]) Body surface area Derived from formula 2.[address] [facility] ([facility]) Body weight 171.[address] [facility] ([facility]) Wagoner body weight 136 [lb_av] 136 [lb_av] MEDEN T ([facility]) Body mass index (BMI) [Ratio] 62.9 kg/m2 62.9 k g/m2 [facility] ([facility]) Body weight 378.25 [lb_av] 378.25 [lb_av] MEDEN T ([facility]) Body height 65 [in_i] 65 [in_i] [facility] ([facility]) 5'5" Diastolic blood pressure 87 mm[Hg] 87 mm[Hg] [facility] ([facility]) Systolic blood pressure 130 mm[Hg] 130 mm[Hg] [facility] ([facility]) Body surface area Derived from formula 2.[address] [facility] ([facility]) Body weight 172.084 kg 172.084 kg [facility] ([facility]) Wagoner body weight 136 [lb_av] 136 [lb_av] MEDEN T ([facility]) Body mass index (BMI) [Ratio] 63.1 kg/m2 63.1 k g/m2 [facility] ([facility]) Body weight 379.38 [lb_av] 379.38 [lb_av] MEDEN T ([facility]) Body height 65 [in_i] 65 [in_i] MED[facility] ([facility]) 5'5" Body mass index (BMI) [Ratio] [...] Body weight 174.352 kg 174.352 kg [facility] ([facility]) Wagoner body weight 136 [lb_av] 136 [lb_av] MEDEN T ([facility]) Body mass index (BMI) [Ratio] 64.0 kg/m2 64.0 k g/m2 [facility] ([facility]) Body weight 384.38 [lb_av] 384.38 [lb_av] MEDEN T ([facility]) Body height 65 [in_i] 65 [in_i] MEDENT ([facility], ) 5'5" Heart rate 72 /min 72 /min [facility] ([facility], ) Diastolic blood pressure 85 mm[Hg] 85 mm[Hg] [facility] ([facility]) Systolic blood pressure 127 mm[Hg] 127 mm[Hg] [facility] ([facility]) Body mass index (BMI) [Ratio] 61.6 kg/m2 61.6 k g/m2 [facility] ([facility], [facility]) Body height 65 [in_i] 65 [in_i] [facility] ([facility], [facility]) 5'5" Body weight 370.00 [lb_av] 370.00 [lb_av] MEDEN T ([facility], [facility]) Body temperature 97.8 [degF] 97.8 [degF] [facility] ([facility], [facility]) Oxygen saturation in Arterial blood by Pulse oximetry 97 % 97 % [facility] ([facility], [facility]) Respiratory rate 18 /min 18 /min [facility] ( [facility], [facility]) Heart rate 66 /min 66 /min [facility] ([facility], [facility]) Diastolic blood pressure 93 mm[Hg] 93 mm[Hg] [facility] ([facility], [facility]) Systolic blood pressure 126 mm[Hg] 126 mm[Hg] [facility] ([facility], [facility]) Body weight 177.[address] [facility] ([facility]) Body mass index (BMI) [Ratio] 64.9 kg/m2 64.9 k g/m2 [facility] ([facility]) Body weight 390.25 [lb_av] 390.25 [lb_av] MEDEN T ([facility]) Body height 65 [in_i] 65 [in_i] [facility] ([facility]) 5'5" Diastolic blood pressure 90 mm[Hg] 90 mm[Hg] [facility] ([facility]) Systolic blood pressure 154 mm[Hg] 154 mm[Hg] [facility] ([facility]) Body weight 175.[address] [facility] ([facility]) Body mass index (BMI) [Ratio] 64.4 kg/m2 64.4 k g/m2 [facility] ([facility]) Body weight 387.12 [lb_av] 387.12 [lb_av] MEDEN T ([facility]) Body height 65 [in_i] 65 [in_i] [facility] ([facility]) 5'5" Diastolic blood pressure 100 mm[Hg] 100 mm[Hg] [facility] ([facility]) Systolic blood pressure 180 mm[Hg] 180 mm[Hg] [facility] ([facility]) Body weight 174.[address] [facility] ([facility]) Body mass index (BMI) [Ratio] 64.1 kg/m2 64.1 k g/m2 [facility] ([facility]) Body weight 385.38 [lb_av] 385.38 [lb_av] MEDEN T ([facility]) Body height 65 [in_i] 65 [in_i] [facility] ([facility]) 5'5" Diastolic blood pressure 100 mm[Hg] 100 mm[Hg] [facility] ([facility]) Systolic blood pressure 148 mm[Hg] 148 mm[Hg] [facility] ([facility]) Body weight 6080 [oz_av] 6080 [oz_av] FREIDA ([facility]) Systolic blood pressure 136 mm[Hg] 136 mm[Hg] A THENA ([facility]) Body height 65 [in_i] 65 [in_i] FREIDA ([facility]) Diastolic blood pressure 88 mm[Hg] 88 mm[Hg] FREIDA ([facility]) Body weight 173.842 kg 173.842 kg [facility] ([facility]) Body mass index (BMI) [Ratio] 63.8 kg/m2 63.8 k g/m2 [facility] ([facility]) Body weight 383.25 [lb_av] 383.25 [lb_av] MEDEN T ([facility]) Body height 65 [in_i] 65 [in_i] [facility] ([facility]) 5'5" Diastolic blood pressure 96 mm[Hg] 96 mm[Hg] [facility] ([facility]) Systolic blood pressure 154 mm[Hg] 154 mm[Hg] M EDDELMY ([facility]) Body weight 6083.2 [oz_av] 6083.2 [oz_av] ATHEN A ([facility]) Systolic blood pressure 140 mm[Hg] 140 mm[Hg] A THENA ([facility]) Body height 65 [in_i] 65 [in_i] FREIDA ([facility]) Diastolic blood pressure 87 mm[Hg] 87 mm[Hg] FREIDA ([facility]) Body height 65 [in_i] 65 [in_i] [facility] ([facility]) 5'5" Body temperature 97.8 [degF] 97.8 [degF] [facility] ([facility]) Diastolic blood pressure 91 mm[Hg] 91 mm[Hg] [facility] ([facility]) Systolic blood pressure 139 mm[Hg] 139 mm[Hg] [facility] Body weight 172.[address] [facility] ([facility]) Body mass index (BMI) [Ratio] 63.2 kg/m2 63.2 k g/m2 [facility] ([facility]) Body weight 380.00 [lb_av] 380.00 [lb_av] [employer] ([facility]) Body weight 170.[address] [facility] ([facility]) Body mass index (BMI) [Ratio] 62.6 kg/m2 62.6 k g/m2 [facility] ([facility]) Body weight 376.50 [lb_av] 376.50 [lb_av] MEDEN T ([facility]) Body height 65 [in_i] 65 [in_i] [facility]) 5'5" Body temperature 97.7 [degF] 97.7 [degF] [facility] ([facility]) Diastolic blood pressure 80 mm[Hg] 80 mm[Hg] [facility] ([facility]) Systolic blood pressure 120 mm[Hg] 120 mm[Hg] [facility] ([facility]) Body weight 172.[address] [facility] ([facility]) Body mass index (BMI) [Ratio] 63.4 kg/m2 63.4 k g/m2 [facility] ([facility]) Body weight 381.12 [lb_av] 381.12 [lb_av] MEDEN T ([facility]) Body height 65 [in_i] 65 [in_i] [facility] ([facility]) 5'5" Body temperature 97.7 [degF] 97.7 [degF] [facility] ([facility]) Heart rate 65 /min 65 /min [facility] ([facility]) Diastolic blood pressure 77 mm[Hg] 77 mm[Hg] [facility] ([facility]) Systolic blood pressure 122 mm[Hg] 122 mm[Hg] [facility] ([facility]) Body weight 170.[address] [facility] ([facility]) Body mass index (BMI) [Ratio] 62.6 kg/m2 62.6 k g/m2 [facility] ([facility]) Body weight 376.00 [lb_av] 376.00 [lb_av] [employer] ([facility]) Body height 65 [in_i] 65 [in_i] [facility] ([facility]) 5'5" Diastolic blood pressure 88 mm[Hg] 88 mm[Hg] [facility] ([facility]) Systolic blood pressure 144 mm[Hg] 144 mm[Hg] [facility] ([facility]) Body weight 169.[address] [facility] ([facility]) Body mass index (BMI) [Ratio] 62.1 kg/m2 62.1 k g/m2 [facility] ([facility]) Body weight 373.12 [lb_av] 373.12 [lb_av] BHAVIK T ([facility], ) Body height 65 [in_i] 65 [in_i] LUISA ([facility], ) 5'5" Diastolic blood pressure 85 mm[Hg] 85 mm[Hg] LUISA ([facility], ) Systolic blood pressure 130 mm[Hg] 130 mm[Hg] M JIM ([facility], ) Patient Treatment Plan of Care Planned Activity Planned Date Details Description Data Source (s) Sucralfate 1000 MG Oral Tablet FREIDA ([facility]) Acetaminophen 325 MG / Oxycodone Hydrochloride 5 MG Oral Tablet FREIDA ([facility]) meloxicam 7.5 MG Oral Tablet [facility] ([facility]) Lidocaine 40 MG/ML Topical Cream FREIDA ([facility]) Ibuprofen 600 MG Oral Tablet FREIDA ([facility]) Cyclobenzaprine hydrochloride 10 MG Oral Tablet FREIDA ([facility]) chlorhexidine gluconate 1.2 MG/ML Mouthwash FREIDA ([facility]) Amoxicillin 875 MG / Clavulanate 125 MG Oral Tablet FREIDA ([facility]) Amoxicillin 500 MG Oral Capsule FREIDA ([facility]) ammonium lactate 120 MG/ML Topical Cream FREIDA ([facility])
[2020-08-12 04:02] LABS: RSV AMPLIFICATION NEGATIVE (NEGATIVE)
[2020-08-12] MEDS: NS 1,000 ML IV SCH ×4 (04:42→23:18)
[2020-08-12 05:00] VITALS: BP 153/90
[2020-08-12] MEDS ORDERED: ONDANSETRON 4MG/2ML VIAL IV PRN (05:15)
[2020-08-12] MEDS ORDERED: ONDANSETRON 4MG/2ML VIAL IV SCH (06:00)
--- NOTE | 2020-08-12 08:56 | ECGEPIP ---
[facility] - ED Test Date: 2020-08-12 Pat Name: ESTRELLA MOSES Department: Room: [place] [address] Gender: Male Health Coach: CONCHA : 1980 Requested By: TOSHA Severino PA-C Order Number: [id number] Reading MD: Yessica Castillo Measurements Intervals [place] Rate: 63 P: 58 OR: 145 QRS: -28 QRSD: 104 T: 3 QT: 414 QTc: 425 Interpretive Statements SINUS RHYTHM BORDERLINE LEFT AXIS DEVIATION MINIMAL VOLTAGE CRITERIA FOR LVH, CONSIDER NORMAL VARIANT NONSPECIFIC T-WAVE ABNORMALITY similar 07/11/19 Electronically Signed on 08-12-2020 8:56:30 EST by Yessica Castillo
[2020-08-12 10:00] VITALS: BP 155/88
--- NOTE | 2020-08-12 10:27 | REP ---
INDICATION: sbo resolved?. COMPARISON: May 11, 2019. Comparison is made with CT findings from earlier on today's date.. TECHNIQUE: Four views including upright chest radiograph. FINDINGS: Upright chest radiograph shows no evidence of free subdiaphragmatic air or infiltrate. Heart is not enlarged. A nasogastric tube enters the left upper quadrant. Supine and erect views of the abdomen demonstrate differential air-fluid levels in dilated air and fluid containing loops of small bowel in the upper abdomen. These are slightly less numerous but otherwise unchanged from the router operator pin view obtained at the time of this morning's CT study. No free air is seen. Air and stool is noted in the right colon and sigmoid colon. Contrast opacified urine is seen in a mildly distended urinary bladder. There is a surgical drain adjacent to some skin maría elena in the left mid abdomen. IMPRESSION: Persistent small bowel obstruction pattern. No evidence of free air. Dilated small bowel loops are slightly less numerous than on the earlier CT images. They remain distended with differential air-fluid levels however.. <Electronically signed by Senthil Hickman > 08/12/20 1026
[2020-08-12 14:00] VITALS: BP 157/82
--- NOTE | 2020-08-12 14:51 | HPE ---
HISTORY AND PHYSICAL DATE OF ADMISSION: 08/12/2020 HISTORY OF PRESENT ILLNESS: The patient was admitted in the middle of the night with small bowel obstruction seen on CAT scan. Approximately 4-1/2 days ago, patient underwent operative intervention were he had a seroma removed from his abdominal wall and mesh removed from his abdominal wall. I am not sure if he had primary closure of a fascial defect or whether this was loosely approximated because of his questionable previous possible infected status. In any case, presents now with crampy abdominal pain, nausea, without significant vomiting. No diarrhea. No blood per rectum. Has had some flatus. Has been complaining of crampy abdominal pain. Not complaining so much of abdominal pain at the incision site per se. CAT scan was performed in the emergency room and indeed does reveal recurrence of a midline hernia with small bowel within this hernia sac and proximal small bowel. PAST MEDICAL HISTORY: Significant for: 1. History of morbid obesity. 2. History of cholecystectomy. 3. Appendectomy. 4. Umbilical hernia repair done times two in [place]. 5. History of robotic-assisted laparoscopic umbilical hernia repair 03/30/2019. 6. History of diagnostic laparoscopy, exploration of abdominal wall seroma on 08/03/2020. 7. History of thyroid disease. 8. Hypertension. 9. Gastroesophageal reflux. MEDICATIONS: Include: - amitriptyline - Carafate - Percocet - Protonix - Zofran PHYSICAL EXAMINATION: Reveals a 40-year-old morbidly obese male who looks stated age. HEENT: Unremarkable. NECK: Supple without adenopathy. LUNGS: Clear to auscultation. HEART: Regular without murmur. ABDOMEN: Softly distended. He states since having his nasogastric (NG) tube placed in the emergency room, he is having significantly less abdominal discomfort, pain and less crampy abdominal pain. His incision on the midline does have some fullness throughout it. It is nontender. It is partially reducible. EXTREMITIES: Warm and well-perfused. IMPRESSION/PLAN: Patient has evidence of a recurrent incisional hernia and has a bowel obstruction and my concern is that this may actually be within the hernia site itself; however, he has become much less symptomatic at this time. Given his improvement, I do feel that we can continue with current treatment for now, keep him nothing by mouth with NG tube in place. If we can get him decompressed enough, I would recommend considering proceeding with a laparoscopic/robotic hernia repair but at this point, given his morbid obesity, the likelihood of recurrence is extremely high no matter which way he has an operative repair of this. In any case, at this point given his improvement symptomatically and clinically, I do feel that we have the ability to see how he does over the next 24-48 hours and determine our next course of action dependent on this.
[2020-08-12 22:00] VITALS: BP 150/83
[2020-08-13] VITALS (7 sets, daily range): BP systolic 141–155; BP diastolic 79–83
[2020-08-13] MEDS: MORPHINE 4 MG/ML 1ML VIAL/SYRINGE (J2270) IV PRN ×2 (03:10→21:03)
[2020-08-13] MEDS: NS 1,000 ML IV SCH ×3 (05:45→20:55)
--- NOTE | 2020-08-13 10:09 | REP ---
INDICATION: sbo COMPARISON: None. TECHNIQUE: Upright view of the chest with supine and upright views of the abdomen and pelvis. FINDINGS: Frontal upright view of the chest demonstrates no acute cardiopulmonary process or free air below the diaphragm to suspect pneumoperitoneum. Nasogastric tube in satisfactory position. Supine and upright views of the abdomen and pelvis demonstrate recent postsurgical changes including midline maría elena and drainage catheter. Bowel gas pattern is nonspecific and element of small bowel obstruction versus ileus cannot be differentiated. IMPRESSION: 1. Postoperative changes. 2. Air-filled dilated loops of small bowel. Differential diagnosis includes obstruction as well as ileus. No obvious free air. <Electronically signed by Valdemar Landry > 08/13/20 [id number]
[2020-08-13] MEDS: MIRALAX *UNIT DOSE* 17GM PACKET PO SCH (16:15)
[2020-08-14 02:00] VITALS: BP 147/79
[2020-08-14] MEDS: NS 1,000 ML IV SCH ×4 (03:34→23:50)
[2020-08-14 06:00] VITALS: BP 159/92
[2020-08-14 06:26] LABS: BASO % 0.3 % (0.0-1.0); EOS # 0.7 10^3/uL (0.0-0.5); EOS % 6.9 % (0.0-3.0); HEMATOCRIT 40.1 % (42.0-52.0); HEMOGLOBIN 12.2 g/dl (13.5-17.5); LYMPH # 2.5 10^3/uL (1.5-5.0); LYMPH % 26.1 % (24.0-44.0); MEAN CORPUSCULAR HEMOGLOBIN 24.8 pg (27.0-33.0); MEAN CORPUSCULAR HGB CONC 30.4 g/dl (32.0-36.5); MEAN CORPUSCULAR VOLUME 81.5 fl (80.0-96.0); MONO # 0.6 10^3/uL (0.0-0.8); MONO % 5.9 % (0.0-5.0); NEUTROPHILS # 5.7 10^3/uL (1.5-8.5); NEUTROPHILS % 60.3 % (36.0-66.0); PLATELET COUNT, AUTOMATED 154 10^3/uL (150-450); RED BLOOD COUNT 4.92 10^6/uL (4.30-6.10); WHITE BLOOD COUNT 9.5 10^3/uL (4.0-10.0)
[2020-08-14 06:45] LABS: BLOOD UREA NITROGEN 8 MG/DL (7-18); CALCIUM LEVEL 8.7 MG/DL (8.5-10.1); CARBON DIOXIDE LEVEL 28 MEQ/L (21-32); CHLORIDE LEVEL 103 MEQ/L (98-107); CREATININE FOR GFR 0.83 MG/DL (0.70-1.30); GLOMERULAR FILTRATION RATE > 60.0 (>60); GLUCOSE, FASTING 67 MG/DL (70-100); POTASSIUM SERUM 3.5 MEQ/L (3.5-5.1); SODIUM LEVEL 141 MEQ/L (136-145)
[2020-08-14 10:00] VITALS: BP 160/85
[2020-08-14] MEDS: MIRALAX *UNIT DOSE* 17GM PACKET PO SCH (10:18)
--- NOTE | 2020-08-14 12:29 | REP ---
INDICATION: ffup sbo COMPARISON: 08/13/2020 TECHNIQUE: Supine view of the abdomen and pelvis. FINDINGS: Evidence for recent surgery including surgical maría elena and intraperitoneal drainage catheter. Prior cholecystectomy. Nasogastric tube below the left hemidiaphragm. Bowel gas pattern is nonspecific and without evidence for obstruction or perforation. Skeletal structures are intact. IMPRESSION: Postsurgical changes. No evidence for bowel obstruction. <Electronically signed by Valdemar Landry > 08/14/20 [id number]
[2020-08-14 14:00] VITALS: BP 151/85
[2020-08-14 18:00] VITALS: BP 148/82
[2020-08-14] MEDS: MORPHINE 4 MG/ML 1ML VIAL/SYRINGE (J2270) IV PRN (21:25)
[2020-08-14 22:00] VITALS: BP 155/78
[2020-08-15] VITALS (9 sets, daily range): BP systolic 109–163; BP diastolic 55–90
[2020-08-15 06:24] LABS: BASO % 0.2 % (0.0-1.0); EOS # 0.6 10^3/uL (0.0-0.5); EOS % 6.8 % (0.0-3.0); HEMATOCRIT 39.2 % (42.0-52.0); HEMOGLOBIN 12.1 g/dl (13.5-17.5); LYMPH # 2.1 10^3/uL (1.5-5.0); LYMPH % 24.8 % (24.0-44.0); MEAN CORPUSCULAR HGB CONC 30.9 g/dl (32.0-36.5); MONO # 0.4 10^3/uL (0.0-0.8); MONO % 4.7 % (0.0-5.0); NEUTROPHILS # 5.2 10^3/uL (1.5-8.5); NEUTROPHILS % 62.8 % (36.0-66.0); PLATELET COUNT, AUTOMATED 153 10^3/uL (150-450); RED BLOOD COUNT 4.84 10^6/uL (4.30-6.10); WHITE BLOOD COUNT 8.4 10^3/uL (4.0-10.0)
[2020-08-15] MEDS: NS 1,000 ML IV SCH ×3 (06:33→20:22)
[2020-08-15 06:48] LABS: BLOOD UREA NITROGEN 7 MG/DL (7-18); CALCIUM LEVEL 8.7 MG/DL (8.5-10.1); CARBON DIOXIDE LEVEL 28 MEQ/L (21-32); CHLORIDE LEVEL 103 MEQ/L (98-107); CREATININE FOR GFR 0.72 MG/DL (0.70-1.30); GLOMERULAR FILTRATION RATE > 60.0 (>60); GLUCOSE, FASTING 63 MG/DL (70-100); POTASSIUM SERUM 3.5 MEQ/L (3.5-5.1); SODIUM LEVEL 139 MEQ/L (136-145)
--- NOTE | 2020-08-15 07:50 | IPNPDOC ---
Text Note Date of Service The patient was seen on 08/15/20. NOTE Patient known to me. I had been following him up for more than a year with rec urrent formation of seroma at a prior umbilical hernia repair site. His original surgery was way back in 03/30/2019 and this was done has a robotic-assisted laparoscopic hernia repair with a mesh placed intraperitoneally in an onlay fashion (IPOM) after closing of the fascial defect. Notable intraoperative finding includes thin mid abdominal wall/linea alba with diastatic healing underneath the area. Patient had 2 prior hernia repairs done. Multiple [place] cheese defect coalesced to give an appearance of a 4 cm hernia defect. Since that original surgery he has had recurrent seroma formation at the deep subcutaneous space and multiple interventions have been done including aspiration in the clinic, sclerosis of the seroma with interventional radiology multiple times. He continues to complain of pain underneath that area with progressive hardening of the surrounding tissue. Of note, multiple cultures had been sent during the aspirations and he has not had any growth of organism. I took him to the OR on 01/20/2024 excision of the seroma capsule [place] is hardened to point that the seroma would not resolve. There were some visible old sutures (Ethibond) from his previous hernia repairs likewise part of the V LOC sutured in a used to close his fascia was removed. Culture during that procedure also did not yield any growth. The excised hardened seroma capsule just represented chronic inflammation and hardened adipose tissue. There was bulging of the fascia but I did not encounter the mesh per se. After that procedure, he continued to reform the seroma less so but the surrounding adipose tissue and scaring also performed is hardened mass on top. This gave him more pain. Multiple attempts at aspiration again and later on placement of a percutaneous drain by interventional radiology did not resolve the process. Though no growth has been encountered and all the cultures that we have sent I'm suspecting possible low-grade infection of the mesh and likewise medium mesh being balled up which may result percent the hardened tissue underneath the umbilicus. Given no resolution with all the prior attempts, we have decided to bring him to the operating room to excise all the scar tissue including the fascia and removal of the mesh. This was done 08/03/2020. I sent cultures on the tissues above the fascia which had some chronic pastelike material embedded only showed growth of Staphylococcus Caprae. The pathology shows chronic inflammatory tissue, fat necrosis and giant cell reaction, fibrous tissue with cystic-like areas and ulceration. Because it was not really clear what the picture was a decided to close the fascia with double loop PDS without placing any further mesh knowing that he may recur his hernia upwards of 70-80% in the literature given his morbid obesity. Unfortunately he was recently admitted for what looks to be internally dehiscence of that fascial closure and now he has about a 6 x 6 cm defect containing small bowel. The drain that I left postoperatively still is in place and only draining serous to serosanguineous fluid. Since admission about 3 days ago, he has a nasogastric tube in place and has not had any notable bowel movements. He reports he has passed a small amount of solid stool and is intermittently passing flatus. His abdomen though has been well decompressed save for that portion at the midabdomen where the hernia is located which is still slightly bulging less so than the presentation consistent with nonresolution of his bowel obstruction. Thus we are forced to again intervene and this time we plan to do a laparoscopic approach I will use the robot and reduced the bowel. I will try to close the fascia no M not to go full on this given the recent surgery. We will need some sort of way to exclude the bowels from the subcutaneous tissue and fascial defect and for which plan to place of a phasix mesh if I a m not able to fully close the defect. If I am able to securely close the fascia defect, I will consider placing a polypropylene mesh as an IPOM fashion with as wide an overlap that I could manage. I have sent cultures of the drain fluid and so far does not show any growth. . VS,Fishbone, I+O VS, Fishbone, I+O Laboratory Tests 08/15/20 05:35 Vital Signs Date Time Temp Pulse Resp B/P (MAP) Pulse Ox O2 Delivery O2 Flow Rate FiO2 08/15/20 06:00 98.2 52 16 156/74 (101) 96 Room Air I&O- Last 24 Hours up to 6 AM 08/15/20 05:59 Intake Total 2160 ml Output Total 3170 ml Balance -1010 ml CHERELLE REZA MD Aug 15, 2020 07:49
[2020-08-15] MEDS: MIRALAX *UNIT DOSE* 17GM PACKET PO SCH (09:00)
[2020-08-15] MEDS ORDERED: ROCURONIUM BROMIDE 50 MG/5 ML VIAL As Ordered ONE ×5 (09:57→16:07)
[2020-08-15] MEDS ORDERED: LIDOCAINE 2% 100MG/5ML SDV (FOR ANES.) As Ordered ONE (09:57)
[2020-08-15] MEDS ORDERED: propofoL 200 MG/20 ML VIAL As Ordered ONE (09:57)
[2020-08-15] MEDS ORDERED: MIDAZOLAM INJ 2MG/2ML VIAL (J2250 PER 1MG) As Ordered ONE (09:58)
[2020-08-15] MEDS ORDERED: fentaNYL 100 MCG/2 ML INJECTION (J3010) As Ordered ONE ×2 (09:58→11:39)
[2020-08-15] MEDS ORDERED: BUPIVACAINE HCL 0.25% 30ML VIAL As Ordered ONE (10:01)
[2020-08-15] MEDS ORDERED: LIDOCAINE 1% SDV 30ML VIAL As Ordered ONE (10:01)
[2020-08-15] MEDS ORDERED: BUPIVACAINE LIPOSOME/PF 1.3% 20ML VIAL (13.3MG/ML)(EXPAREL)(C9290 PER1MG) As Ordered ONE (10:02)
[2020-08-15] MEDS ORDERED: BUPIVACAINE HCL 0.25% 10ML VIAL As Ordered ONE (10:02)
[2020-08-15] MEDS ORDERED: ceFAZolin 2 GM/D5W 50 ML IV BAG (J0690 PER 500MG) As Ordered ONE (10:12)
[2020-08-15] MEDS ORDERED: ceFAZolin 1GM VIAL (J0690 PER 500MG) As Ordered ONE (10:12)
[2020-08-15] MEDS ORDERED: ZOSYN 4.5GM VIAL (J2543) As Ordered ONE (14:19)
[2020-08-15] MEDS ORDERED: LACRILUBE (AKWA TEARS) OPHTH OINT 3.5 GM As Ordered ONE (14:35)
[2020-08-15] MEDS ORDERED: HYDROmorphone HCL 2 MG/ML 1ML VIAL (J1170) As Ordered ONE (15:12)
[2020-08-15] MEDS ORDERED: ONDANSETRON 4MG/2ML VIAL As Ordered ONE (15:12)
[2020-08-15] MEDS ORDERED: KETOROLAC 60MG 2ML VIAL As Ordered ONE (15:12)
[2020-08-15] MEDS ORDERED: ACETAMINOPHEN 1000MG 100ML IV BTL (OFIRMEV) (J0131 PER 10MG) As Ordered ONE (15:34)
[2020-08-15] MEDS ORDERED: SUGAMMADEX SODIUM 500 MG/5 ML VIAL (BRIDION) As Ordered ONE (16:08)
[2020-08-15] MEDS ORDERED: PERCOCET 5MG/325MG TAB PO PRN (18:00)
[2020-08-15] MEDS ORDERED: MORPHINE 2 MG/ML 1ML VIAL (J2270) IV PRN (18:15)
[2020-08-15] MEDS ORDERED: oxyCODONE 5MG TAB PO PRN (18:15)
[2020-08-15] MEDS ORDERED: LR 1,000 ML IV SCH (18:15)
[2020-08-15] MEDS ORDERED: ONDANSETRON 4MG/2ML VIAL IV PRN (18:15)
[2020-08-15] MEDS ORDERED: fentaNYL 100 MCG/2 ML INJECTION (J3010) IV PRN (18:15)
[2020-08-15] MEDS: ALVIMOPAN 12 MG CAPSULE (ENTEREG) PO SCH (20:19)
[2020-08-15] MEDS: PANTOPRAZOLE 40MG VIAL (C9113 PER 1) IV SCH (20:22)
[2020-08-15] MEDS: KETOROLAC 30 MG/ML 1ML VIAL IV SCH (23:33)
[2020-08-16] MEDS: NS 1,000 ML IV SCH ×3 (02:20→15:18)
[2020-08-16 03:30] VITALS: BP 146/78
[2020-08-16] MEDS: MORPHINE 4 MG/ML 1ML VIAL/SYRINGE (J2270) IV PRN (04:02)
[2020-08-16] MEDS: KETOROLAC 30 MG/ML 1ML VIAL IV SCH ×3 (05:47→17:48)
[2020-08-16 05:54] LABS: BASO % 0.1 % (0.0-1.0); EOS # 0.8 10^3/uL (0.0-0.5); EOS % 7.3 % (0.0-3.0); HEMOGLOBIN 11.6 g/dl (13.5-17.5); LYMPH # 1.2 10^3/uL (1.5-5.0); LYMPH % 11.4 % (24.0-44.0); MEAN CORPUSCULAR HEMOGLOBIN 24.7 pg (27.0-33.0); MEAN CORPUSCULAR HGB CONC 30.5 g/dl (32.0-36.5); MEAN CORPUSCULAR VOLUME 80.9 fl (80.0-96.0); MONO # 0.4 10^3/uL (0.0-0.8); MONO % 3.8 % (0.0-5.0); NEUTROPHILS % 76.7 % (36.0-66.0); PLATELET COUNT, AUTOMATED 180 10^3/uL (150-450); WHITE BLOOD COUNT 10.5 10^3/uL (4.0-10.0)
[2020-08-16 06:17] LABS: BLOOD UREA NITROGEN 7 MG/DL (7-18); CALCIUM LEVEL 8.5 MG/DL (8.5-10.1); CARBON DIOXIDE LEVEL 25 MEQ/L (21-32); CHLORIDE LEVEL 107 MEQ/L (98-107); CREATININE FOR GFR 0.95 MG/DL (0.70-1.30); GLOMERULAR FILTRATION RATE > 60.0 (>60); GLUCOSE, FASTING 73 MG/DL (70-100); SODIUM LEVEL 142 MEQ/L (136-145)
--- NOTE | 2020-08-16 07:32 | ROOPDOC ---
[facility] Report Of Operation Report of Operation DATE OF PROCEDURE: 08/16/20 PREPROCEDURE DIAGNOSES: small bowel obstruction, fascial dehiscence, incarcerated hernia, morbid obesity POSTPROCEDURE DIAGNOSES: small bowel obstruction, fascial dehiscence, incarcerated hernia, morbid obesity. PROCEDURE: Robotic assisted lysis of adhesion, repair of incarcerated hernia, small bowel resection with anastomosis. SURGEON: William Yusuf MD HANSARD REPORTER: Maegan Viera, GUNNAR Ms. Fatimaell insisted me with the placement of ports, instrument exchange in the field and adjustment of the robotic arms during the robotic portion and with retraction during the open portion of the procedure that required bowel resection as well as closure of the fascia and redocking of the robot and introduction of mesh. ANESTHESIA: General Anesthesia. ESTIMATED BLOOD LOSS: Approximately 100 mL. COMPLICATIONS: traction injury to incarcerated loop of small bowel necessitating resection and anastomosis. REMARKS: . PROCEDURE NOTE: . DESCRIPTION OF PROCEDURE: Patient was brought to the operating room. He was given Ancef 3 g IV preoperatively for surgical prophylaxis. He has a nasogastric tube in place. He was placed supine on the procedure table. Sequential compression device placed on both lower extremities were DVT prophylaxis. Gen. endotracheal anesthesia started. His prior maría elena and drain removed. A Felder catheter placed for urine output monitoring. He is abdomen widely prepped and draped in usual sterile f ashion. We flexed the bed to increase the space in between his left costal cartilage and anterior superior iliac spine.We paused for a surgical timeout using both pre-incision safety checklist to verify correct patient, procedure site and additional clinical information prior to beginning the procedure Patient's abdomen is morbidly obese and quite protuberant but relatively soft. There is a notable area of fullness at the midabdomen underneath the staple line where soft tissue including the fascia and previous mesh was excised. The incision line is intact with no active drainage. Prior to removal of the PERI drain is mostly serous at this point. I entered the abdomen through the left upper quadrant area. Given his body habitus and very thick pannus entry was slightly difficult. I had to use a bariatric Veress needle to enter the abdomen. Even with confirmed placement into the abdomen and insufflation was slow and nonuniform. Once had an adequate amount of pneumoperitoneum, I placed a 5 mm optical bariatric port on the same incision under visualization of a 5 mm laparoscope. Insertion site was inspected for injury and none was found. He was placed on a slight left tilt to gain more space over the left abdomen. On entry was met immediately with some omental adhesions as well as bowel that is protruding through where the midabdomen was. I had some space over the left abdomen to place my ports. Under direct visualization an 8 mm robotic trocar was placed at about the anterior axillary line mid point between the ASIS and left subcostal cartilage. A bariatric 8 mm trocar placed just on top of the ASIS and a 12 mm robotic port placed just below the subcostal margin on the left side. The robotic tower was maneuvered in place and docked to the trochars and instruments placed under direct visualization. Mainly used a forced bipolar forceps connected to bipolar cautery and laparoscopic scissors connected to a monopolar cautery during the procedure. I then scrubbed in to control of the camera and instruments of surgeon's console while my financial services assistant remain on the field for instrument exchange as well as for management of the arms and slightly a little bit of retraction with the 5 mm port. I started by taking down the omental adhesions at the superior lateral portion on the left side. The omentum as well as the transverse colon was brought down. I noted some remaining mesh that was incorported and covered with omentum at the superior and right lateral portion of the fascia which I took down. The adhesions close to the falciform ligament and towards the right superior lateral side was also taken down at this point. There were several loops of bowel that seems to be incarcerated within the hernia defect. I had my financial services assistant place pressure on top of the hernia defect to see if it will bulge a little bit and this was well fixed. The portion of bowel prior to entering the hernia space appears distended. There seems to be mainly about 3 loops of bowel that is entering the hernia space. The most successful was the mid bowel loop which I slowly took down as well as took down from the surrounding bowels with sharp dissection with the scissors avoiding use of cautery to prevent injury. I was able to successfully do this. There are then left with 2 distended loops of bowel entering the inferior portion and mid and superior portion. This remains quite adhered to the krishna. With slow retraction and countertraction I was trying to get my way around wall of the hernia and the bowels. Stopping most of the time and it is difficult and going to the opposite side to do the same thing. This is expected proves slow and tedious but seems to be were making adequate but slow progress. I was able to get in between the space between those 2 loops of bowel and worked on this opening to try to work on one side of the bowel loop reduce it and then work on the more difficult or more adhered bowel loop which seems to be the superior of this bowel loop. While working on the inferior bowel loop I got into the space where there were some serous fluid that I was able to evacuate out. But this bowel looped seem to go further inferolaterally beyond the margins of the hernia which I am not able to visualize with my camera. I came back turned my attention over to the superior bowel loop and seems to be a was making more progress here though again just like the inferior bowel loop this seems to go further beyond the margins of the hernia and now superolaterally. As I was working on this during traction I noted that there was a full-thickness bowel injury probably about 50% of the bowel. There were no gross spillage at this point. Given the bowel injury was recognized and quite slow progress I decided this point to paused the robotic procedure and plan to open up the prior incision and work on freeing up the bowel down away and potentially resecting the injured loops of bowel. Thus the robotic tower was removed from the field but kept sterile and I scrubbed back in. Patient was given a dose of zosyn 3.375 gm IV since a bowel injury was noted. I opened up the prior midline mid abdominal incision. As immediately met with adhered loops of bowel just underneath the skin. This was quite scarred and despite it being only about 2 weeks from the next procedure. The lower loop as mentioned progress this inferolaterally passed the fascial defect and the superior loop also progresses superolaterally on the right side another couple of centimeters from the fascial defect. I started with the inferior loop which seems to be less plastered on the subcutaneous tissue and underneath the skin. I enlarged the inferior portion of the incision and got some more serous fluid. I have a tunnel underneath the nose equal to bluntly dissect the loop of bowel mostly with finger dissection and slowly pulled this away from the skin and subcutaneous tissue. This portion of the bowel is quite thickened and they notice one or 2 serosal tears but not full-thickness wall defect. The bowel is distended. After doing this I worked on the superior incarcerated loop of bowel. Again the incision was enlarged superiorly to get me some space. This bowel is more tethered with thick adhesions with no real margins from the adhesions. This took longer to free up both with sharp dissection with Metzenbaum scissors but eventually was able to pull this up. The 2 loops of bowel that was freed up was further exteriorized and this turned out to be a continuous loop of bowel roughly about 20 cm in length. The obstruction is at the superior loop. The previously recognized area of full-thickness injury was noted and this continued to the distended scarred and portion of the inferior portion. I lined up the bowel where it appears healthy with 3-0 silk. An enterotomy created on both sides and a [id number] anastomosis fashioned off with a 75 mm YESICA stapler with a blue load. The enterotomy was pulled into the specimen side and a transverse closure with a staple was performed after creating inferior defects on the mesentery and both sides. The mesentery was divided with LigaSure device and the created mesenteric defect and closed with 3-0 silk in a running fashion. There was a big amount of swelling within the mesentery. The bowels and the hernia space and subcutaneous tissue was then irrigated. This was returned to the abdomen which came a chance to examine the fascial defect. There slight thinning over the left side of the skin incision and this was removed. I noted that he is starting to form this hard and calcified subcutaneous fat tissue. I measured my fascial defect at this point and this measures 7 x 7 cm. We changed gloves at this point and used clean instruments. I freed up the anterior fascia circumferentially from the overlying subcutaneous tissue to release some tension from it about 4-5 cm past my opening. The hardened adipose tissue, weak fascial tissue was trimmed to decrease the amount of tissue to close and get fresh tissues to close. There are some leftover portions of the mesh and also the prior double loop PDS to also removed. Prior to closing the fascia, I obtained a 25 x [address] mesh. This is slowly resolvable and none permanent. Given that we did a bowel resection, I do not want a permanent mesh that may get infected. I placed a 0 Vicryl starting at the midline and at the 4 corners intending to use a transabdominal sutures to hold it in place later on. I then closed the fascia using #1 stratafix has evidently the orbital suture. Hold the closure much better and he already failed on the d ouble loop PDS. Small wide bites were taken and the use a total of 512 cm length number 1 Stratafix to close the fascial defect securely. I noted that there is a prominent diastasis on the upper part of the closure so I plicated the diastasis with # stratafix overlapping this with the fascial closure inferiorly. Once the fascia was securely closed. I resumed pneumoperitoneum. Due to the characteristics of the mesh this was hard to unfold. Thus I decided to re-docked the robot. I again unscrubbed and went to the surgeon's console.The leftover mesh that was noted earlier was fully removed from the abdominal wall. I unfolded the mesh in the holding in place had my financial services assistant place secure strap tacks to keep the mesh flat on the abdominal wall and temporarily secured is in place. Trimmed the transabdominal sutures as it was hard to locate this transabdominally especially it was going beyond the prepped portion of the abdomen. I then sutured the mesh in place circumferentially with a running suture using 2-o vloc. Also I placed a separate suture going soft north at the midline in a running baseball stitch using the same 20V LOC. Once this was done all the sutures and needles were removed. I needed a 5 mm bag to remove the mesh. The robot was undocked. I scrubbed back in and proceeded with laparoscopy. I used the remaining secure strap tacks to further secure the mesh in place. A enlisted aircrew/aerial observer/gunner the abdomen as well as the mesh placement. The abdomen was then deflated. I again irrigated the subcutaneous space at the middle of the abdomen. I closed some of the subcutaneous tissue to decrease his space and a left a new 10 mm flat PERI drain at the bottom of the subcutaneous space to drain this. The skin was again freshened up and then closed with skin maría elena. The 12 mm port site was closed with 0V LOC using a Luigi Eduardo device. This skin incisions at the port site were closed with 4-0 Monocryl in the sub cuticular fashion and covered with Dermabond. The drain stitch to the skin with 2-0 silk Patient was stable throughout the procedure. He was promptly awakened, extubated and brought to recovery room in stable condition. WILLIAM YUSUF MD Aug 16, 2020 07:31
--- NOTE | 2020-08-16 07:35 | IPNPDOC ---
Text Note Date of Service The patient was seen on 08/16/20. NOTE Patient underwent a lengthy procedure yesterday with bowel resection and repair of incarcerated incisional hernia. Stable postop. Reports abdominal discomfort controlled, some pain in his back from lying down. Afebrile. Denies any shortness of breath. Reports discomfort related to the nasogastric tube. VS stable Patient seen, week laying flat on the bed relatively comfortable in appearance. Nasogastric tube in place for approximately 7 months of mostly like gastric fluid is in the canister postop Clear breath sounds auscultation bilaterally no wheezing Regular heart rate and rhythm Abdomen still looks uniformly mildly distended, quiet bowel sounds. Subcutaneous drain with a small amount of serous sinus fluid. Midline incision with maría elena intact clean and dry no drainage left-sided laparoscopic port sites with Dermabond, intact. Mildly tender around the midabdomen. No significant extremity edema Impression/Plan: POD1 Robotic assisted laparoscopic lysis of adhesion (hybrid with open) small bowel resection and anastomosis, primary fascial closure, IPOM phasix st mesh (25 x 20 cms) Overall stable post op. I talked him the importance of ambulating postop taking deep breaths. We will monitor NG tube output today. d/c michelle ambulate to hallways abdominal binder monitor ng out put today if not much possible d/c dvt prophylaxis continue unasyn - bowel injury VS,Jimmye, I+O VS, Jimmye, I+O Laboratory Tests 08/16/20 05:22 Vital Signs Date Time Temp Pulse Resp B/P (MAP) Pulse Ox O2 Delivery O2 Flow Rate FiO2 08/16/20 04:12 16 Nasal Cannula 2.0 08/16/20 03:30 97.8 71 146/78 (100) 97 I&O- Last 24 Hours up to 6 AM 08/16/20 06:00 Intake Total 4900 ml Output Total 530 ml Balance 4370 ml CHERELLE REZA MD Aug 16, 2020 07:35
[2020-08-16 08:00] VITALS: BP 142/76
[2020-08-16] MEDS: MIRALAX *UNIT DOSE* 17GM PACKET PO SCH (08:48)
[2020-08-16] MEDS: ENOXAPARIN 40MG/0.4ML SYRINGE (J1650 PER 10MG) SC SCH (08:48)
[2020-08-16] MEDS: AMPICILLIN SOD/SULBACTAM SOD 3 GM in D5W MINI-BAG PLUS 100 ML IV SCH ×3 (08:48→20:28)
[2020-08-16] MEDS: ALVIMOPAN 12 MG CAPSULE (ENTEREG) PO SCH ×2 (08:48→20:28)
[2020-08-16 11:30] VITALS: BP 160/90
[2020-08-16 14:00] VITALS: BP 161/91
[2020-08-16] MEDS: PERCOCET 5MG/325MG TAB PO PRN ×2 (14:07→20:29)
[2020-08-16] MEDS: PANTOPRAZOLE 40MG VIAL (C9113 PER 1) IV SCH (17:48)
[2020-08-16 19:30] VITALS: BP 157/88
[2020-08-16 22:00] VITALS: BP 143/78
[2020-08-17] MEDS: NS 1,000 ML IV SCH ×5 (00:45→21:14)
[2020-08-17] MEDS: KETOROLAC 30 MG/ML 1ML VIAL IV SCH ×5 (00:45→23:23)
[2020-08-17] MEDS: AMPICILLIN SOD/SULBACTAM SOD 3 GM in D5W MINI-BAG PLUS 100 ML IV SCH ×4 (01:59→20:15)
[2020-08-17 02:00] VITALS: BP 153/63
[2020-08-17 06:00] VITALS: BP 153/85
[2020-08-17 07:49] LABS: BASO % 0.2 % (0.0-1.0); EOS # 1.1 10^3/uL (0.0-0.5); EOS % 10.7 % (0.0-3.0); HEMATOCRIT 36.4 % (42.0-52.0); HEMOGLOBIN 10.9 g/dl (13.5-17.5); LYMPH # 1.2 10^3/uL (1.5-5.0); LYMPH % 12.5 % (24.0-44.0); MEAN CORPUSCULAR HEMOGLOBIN 24.5 pg (27.0-33.0); MEAN CORPUSCULAR HGB CONC 29.9 g/dl (32.0-36.5); MEAN CORPUSCULAR VOLUME 81.8 fl (80.0-96.0); MONO # 0.5 10^3/uL (0.0-0.8); MONO % 4.9 % (0.0-5.0); NEUTROPHILS # 6.9 10^3/uL (1.5-8.5); PLATELET COUNT, AUTOMATED 161 10^3/uL (150-450); RED BLOOD COUNT 4.45 10^6/uL (4.30-6.10); WHITE BLOOD COUNT 9.8 10^3/uL (4.0-10.0)
[2020-08-17 08:11] LABS: BLOOD UREA NITROGEN 5 MG/DL (7-18); CALCIUM LEVEL 8.2 MG/DL (8.5-10.1); CARBON DIOXIDE LEVEL 27 MEQ/L (21-32); CHLORIDE LEVEL 105 MEQ/L (98-107); CREATININE FOR GFR 0.77 MG/DL (0.70-1.30); GLOMERULAR FILTRATION RATE > 60.0 (>60); GLUCOSE, FASTING 77 MG/DL (70-100); POTASSIUM SERUM 3.9 MEQ/L (3.5-5.1); SODIUM LEVEL 141 MEQ/L (136-145)
[2020-08-17] MEDS: ALVIMOPAN 12 MG CAPSULE (ENTEREG) PO SCH ×2 (09:51→20:15)
[2020-08-17] MEDS: MIRALAX *UNIT DOSE* 17GM PACKET PO SCH (09:52)
[2020-08-17] MEDS: PERCOCET 5MG/325MG TAB PO PRN (09:52)
[2020-08-17] MEDS: ENOXAPARIN 40MG/0.4ML SYRINGE (J1650 PER 10MG) SC SCH (09:52)
[2020-08-17 10:00] VITALS: BP 155/85
--- NOTE | 2020-08-17 12:54 | IPNPDOC ---
Text Note Date of Service The patient was seen on 08/17/20. NOTE General Surgery Dr Yusuf. Subjective. The patient is status post robotic assisted lysis of adhesion, repair of incarcerated hernia, small bowel resection with anastomosis as per Dr. Jordan 08/15/20. This morning, the patient reports abdominal discomfort is controlled. Reports flatus and bowel movement 1. Objective Afebrile, heart rate 82, respiratory rate 15, blood pressure 155/85, 95% room air. Resting in bed comfortably. NG tube in place with no additional drainage and no drainage reported over the past 24 hours. Clear to auscultation. S1-S2 regular rate and rhythm. Abdomen. Still generally distended. PERI drain with sero sanguinous fluid. Midline incision is clean, no drainage, maría elena are intact, mild tenderness noted. Left- sided port sites intact. No lower extremity edema. WBC 9.8, hemoglobin 10.9, platelet count 161. Serum creatinine 0.77, GFR greater than 60. CRP 17.5 A/P POD 2 robotic assisted lysis of adhesion, repair of incarcerated hernia, small bowel resection with anastomosis as per Dr. Jordan 08/15/20. The patient reports pain is controlled. Percocet/Toradol as needed. Afebrile, no leukocytosis, CRP noted to be 17.5. IV fluids 150 mL per hour. Plan is to remove NG tube if less than 200 mL out after 30 minutes suctioning this morning with trial of clear liquids. Unasyn D2 related to bowel injury. Encourage ambulation and out of bed. Continue with abdominal binder. Continue to monitor. BMI 60.1. Complicates care DVT prophylaxis. SQ Lovenox VS,Fishbone, I+O VS, Fishbone, I+O Laboratory Tests 08/17/20 07:35 Vital Signs Date Time Temp Pulse Resp B/P (MAP) Pulse Ox O2 Delivery O2 Flow Rate FiO2 08/17/20 10:22 16 08/17/20 10:00 98.0 82 155/85 (108) 95 Room Air 08/16/20 08:00 2.0 I&O- Last 24 Hours up to 6 AM 08/17/20 06:00 Intake Total 1450 ml Output Total 430 ml Balance 1020 ml Alea Seo Aug 17, 2020 12:54
[2020-08-17 14:00] VITALS: BP 157/84
[2020-08-17] MEDS: PANTOPRAZOLE 40MG VIAL (C9113 PER 1) IV SCH (17:31)
[2020-08-17 18:00] VITALS: BP 150/87
[2020-08-17 22:00] VITALS: BP 147/86
[2020-08-18 02:00] VITALS: BP 148/68
[2020-08-18] MEDS: AMPICILLIN SOD/SULBACTAM SOD 3 GM in D5W MINI-BAG PLUS 100 ML IV SCH ×4 (02:05→20:35)
[2020-08-18] MEDS: NS 1,000 ML IV SCH (04:47)
[2020-08-18] MEDS: KETOROLAC 30 MG/ML 1ML VIAL IV SCH ×3 (05:00→17:20)
[2020-08-18 06:00] VITALS: BP 156/87
[2020-08-18 06:31] LABS: BASO % 0.2 % (0.0-1.0); EOS # 1.2 10^3/uL (0.0-0.5); EOS % 14.5 % (0.0-3.0); HEMATOCRIT 33.5 % (42.0-52.0); HEMOGLOBIN 10.1 g/dl (13.5-17.5); LYMPH # 1.6 10^3/uL (1.5-5.0); LYMPH % 19.6 % (24.0-44.0); MEAN CORPUSCULAR HEMOGLOBIN 24.6 pg (27.0-33.0); MEAN CORPUSCULAR HGB CONC 30.1 g/dl (32.0-36.5); MEAN CORPUSCULAR VOLUME 81.5 fl (80.0-96.0); MONO # 0.4 10^3/uL (0.0-0.8); MONO % 4.9 % (0.0-5.0); NEUTROPHILS # 4.9 10^3/uL (1.5-8.5); NEUTROPHILS % 60.3 % (36.0-66.0); PLATELET COUNT, AUTOMATED 170 10^3/uL (150-450); RED BLOOD COUNT 4.11 10^6/uL (4.30-6.10); WHITE BLOOD COUNT 8.2 10^3/uL (4.0-10.0)
[2020-08-18 06:58] LABS: BLOOD UREA NITROGEN 3 MG/DL (7-18); CALCIUM LEVEL 7.9 MG/DL (8.5-10.1); CARBON DIOXIDE LEVEL 28 MEQ/L (21-32); CHLORIDE LEVEL 106 MEQ/L (98-107); CREATININE FOR GFR 0.65 MG/DL (0.70-1.30); GLOMERULAR FILTRATION RATE > 60.0 (>60); GLUCOSE, FASTING 69 MG/DL (70-100); POTASSIUM SERUM 3.4 MEQ/L (3.5-5.1); SODIUM LEVEL 141 MEQ/L (136-145)
[2020-08-18] MEDS: MIRALAX *UNIT DOSE* 17GM PACKET PO SCH (08:23)
[2020-08-18] MEDS: ENOXAPARIN 40MG/0.4ML SYRINGE (J1650 PER 10MG) SC SCH (08:24)
[2020-08-18] MEDS: POTASSIUM CHLORIDE 10 MEQ SR TABLET PO SCH (08:24)
[2020-08-18] MEDS: ALVIMOPAN 12 MG CAPSULE (ENTEREG) PO SCH ×2 (08:24→20:35)
[2020-08-18 10:00] VITALS: BP 154/81
--- NOTE | 2020-08-18 10:49 | IPNPDOC ---
Text Note Date of Service The patient was seen on 08/18/20. NOTE No acute events overnight. He is tolerating clears with the NGT out. No problems with abd pains, and he is having BMS and ambulating in the halls. vssaf NAD abd - soft, TTP appropriate, dressing in place with abd binder, drain is serosanguinous labs - below A) 40y/o male s/p ZAIN and SBR for wound dehisence P) reg diet ambulate abx possible d/c home in am with drain is tolerating diet. Gunnar Casanova DO VS,Fishbone, I+O VS, Fishbone, I+O Laboratory Tests 08/18/20 05:32 Vital Signs Date Time Temp Pulse Resp B/P (MAP) Pulse Ox O2 Delivery O2 Flow Rate FiO2 08/18/20 06:00 98.0 69 14 156/87 (110) 97 Room Air 08/16/20 08:00 2.0 I&O- Last 24 Hours up to 6 AM 08/18/20 06:00 Intake Total 2980 ml Output Total 0 ml Balance 2980 ml ADAMS CASANOVA DO Aug 18, 2020 10:49
[2020-08-18 14:00] VITALS: BP 151/79
[2020-08-18] MEDS: PANTOPRAZOLE 40MG VIAL (C9113 PER 1) IV SCH (17:20)
[2020-08-18 18:00] VITALS: BP 148/79
[2020-08-18 22:00] VITALS: BP 148/87
[2020-08-19] MEDS: PERCOCET 5MG/325MG TAB PO PRN (02:04)
[2020-08-19] MEDS: AMPICILLIN SOD/SULBACTAM SOD 3 GM in D5W MINI-BAG PLUS 100 ML IV SCH ×2 (02:04→08:14)
[2020-08-19 06:00] VITALS: BP 152/82
[2020-08-19 06:10] LABS: BASO % 0.4 % (0.0-1.0); EOS # 1.4 10^3/uL (0.0-0.5); HEMATOCRIT 34.6 % (42.0-52.0); HEMOGLOBIN 10.6 g/dl (13.5-17.5); LYMPH # 1.9 10^3/uL (1.5-5.0); LYMPH % 23.1 % (24.0-44.0); MEAN CORPUSCULAR HEMOGLOBIN 24.8 pg (27.0-33.0); MEAN CORPUSCULAR HGB CONC 30.6 g/dl (32.0-36.5); MONO # 0.4 10^3/uL (0.0-0.8); MONO % 5.3 % (0.0-5.0); NEUTROPHILS # 4.3 10^3/uL (1.5-8.5); NEUTROPHILS % 53.7 % (36.0-66.0); PLATELET COUNT, AUTOMATED 190 10^3/uL (150-450); RED BLOOD COUNT 4.27 10^6/uL (4.30-6.10)
[2020-08-19 06:39] LABS: BLOOD UREA NITROGEN 4 MG/DL (7-18); C REACTIVE PROTEIN QUANTITATIV 8.74 MG/DL (0.00-0.30); CALCIUM LEVEL 7.9 MG/DL (8.5-10.1); CARBON DIOXIDE LEVEL 30 MEQ/L (21-32); CHLORIDE LEVEL 104 MEQ/L (98-107); GLOMERULAR FILTRATION RATE > 60.0 (>60); GLUCOSE, FASTING 79 MG/DL (70-100); POTASSIUM SERUM 3.5 MEQ/L (3.5-5.1); SODIUM LEVEL 141 MEQ/L (136-145)
[2020-08-19] MEDS: MIRALAX *UNIT DOSE* 17GM PACKET PO SCH (08:12)
[2020-08-19] MEDS: ENOXAPARIN 40MG/0.4ML SYRINGE (J1650 PER 10MG) SC SCH (08:13)
[2020-08-19] MEDS: POTASSIUM CHLORIDE 10 MEQ SR TABLET PO SCH (08:14)
[2020-08-19] MEDS: ALVIMOPAN 12 MG CAPSULE (ENTEREG) PO SCH (08:14)
--- NOTE | 2020-08-22 08:32 | DS.PDOC ---
Discharge Summary General Date of Admission Aug 12, 2020 at 02:40 Date of Discharge August 19, 2020 Attending Physician: CHERELLE REZA MD Discharge Summary PROCEDURES PERFORMED DURING STAY: Robotic assisted lysis of adhesion, reduction of incarcerated loop of bowels, small bowel resection, repair of incarcerated incisional hernia (08/16/20) ADMITTING DIAGNOSES: 1. Incarcerated incisional hernia 2. Small bowel obstruction 3. Early postoperative fascial dehiscence 4. Morbid obesity with a BMI of 60.1. DISCHARGE DIAGNOSES: 1. Incarcerated incisional hernia s/p repair of incisional hernia, sb resection 2. Small bowel obstruction resolved 3. Early postoperative fascial dehiscence (as above) 4. Morbid obesity with a BMI of 60.1. COMPLICATIONS/CHIEF COMPLAINT: Recurrent Incisional Hernia With Small Bowel.... HISTORY OF PRESENT ILLNESS: The patient was admitted in the middle of the night with small bowel obstruction seen on CAT scan. Approximately 4-1/2 days ago, patient underwent operative intervention were he had a seroma removed from his abdominal wall and mesh removed from his abdominal wall. I am not sure if he had primary closure of a fascial defect or whether this was loosely approximated because of his questionable previous possible infected status. In any case, presents now with crampy abdominal pain, nausea, without significant vomiting. No diarrhea. No blood per rectum. Has had some flatus. Has been complaining of crampy abdominal pain. Not complaining so much of abdominal pain at the incision site per se. CAT scan was performed in the emergency room and indeed does reveal recurrence of a midline hernia with small bowel within this hernia sac and proximal small bowel. HOSPITAL COURSE: Patient presented with small bowel obstruction related to early fascial dehiscence following removal of mesh and closure of periumbilical incisional hernia for chronic/recurrent pain and seroma formation. This was performed a week prior. A nasogastric tube was placed and he was given IV fluids for hydration as well as when necessary narcotics for pain control. His bowel obstruction Endoloops of incarcerated loops of small bowel did not reduce so he was brought back to the operating room. This was performed a combined robotic- assisted laparoscopic approach as well as an open approach after an enterotomy at the incarcerated loop of bowel was encountered. He underwent bowel resection and repair of his incisional hernia. Because there was bowel involvement and still a possibility of a prior mesh infection I placed a slowly absorbable mesh (phasix ST mesh 25 x 20 cm) in an IPOM fashion after closing the anterior fascia in an open fashion. He did well from the surgery. He will resolve his bowel obstruction. His nasogastric tube was discontinued 2 days postop once he starts having bowel function. He was started on clear liquids and slowly advanced to soft diet.. A subcutaneous drain was left in place which we monitored. This was still putting out a good amount of serosanguineous fluid and so he was discharged home with a drain. DISCHARGE MEDICATIONS: Please see below. ALLERGIES: Please see below. PHYSICAL EXAMINATION ON DISCHARGE: VITAL SIGNS: Please see below. GENERAL: Comfortable. He was seen sitting up on the sofa. HEENT: Normocephalic, atraumatic. Lips and mucosa are moist NECK: Thick, short CARDIOVASCULAR EXAMINATION: Regular heart rate and rhythm without murmurs RESPIRATORY EXAMINATION: Clear breath sounds auscultation bilaterally ABDOMINAL EXAMINATION: Morbidly obese, markedly rounded abdomen and large pannus. He has a vertical incision right around where the umbilicus was with maría elena. No drainage. No erythema. He has a subcutaneous drain with serous sanguinous fluid underneath this. Nontender on palpation. Active bowel sounds. EXTREMITIES: No significant edema SKIN: Warm and dry NEUROLOGICAL EXAMINATION: Awake, alert and oriented LABORATORY DATA: Please see below. IMAGING: CT abdomen and pelvis on ER presentation on 08/12/2020 with serial follow-up x-rays PROGNOSIS: Good ACTIVITY: Light activity, no heavy lifting. DIET: As tolerated DISCHARGE PLAN: Patient's discharge home with a subcutaneous drain in place. He will follow up in the clinic next week for possible removal. He is instructed to continue to maintain light activity, continue to wear the abdominal binder. DISPOSITION: Home, Self-Care. DISCHARGE INSTRUCTIONS: 1. As above 2. Follow up in clinic next week for possible removal of the drain 3. Wear abdominal binder when upright for the next 4-6 weeks. ITEMS TO FOLLOWUP ON ON OUTPATIENT: 1. Drain output. DISCHARGE CONDITION: Stable. TIME SPENT ON DISCHARGE: Greater than 45 minutes. Vital Signs/I&Os Vital Signs Date Time Temp Pulse Resp B/P (MAP) Pulse Ox O2 Delivery O2 Flow Rate FiO2 08/19/20 06:00 97.0 66 14 152/82 (105) 97 08/19/20 02:34 Room Air 08/16/20 08:00 2.0 Microbiology Microbiology 08/13/20 Gram Stain - Final, Complete 08/13/20 Body Fluid Culture - Final, Complete Staphylococcus Haemolyticus Discharge Medications Scheduled Pantoprazole Sodium (Pantoprazole Sodium) 40 Mg Tablet.dr, 40 MG PO QHS, (Reported) Scheduled PRN Ondansetron HCl (Ondansetron HCl) 4 Mg Tablet, 4 MG PO Q6H PRN for NAUSEA OR VOMITING, (Reported) Oxycodone HCl/Acetaminophen (Oxycodone-Acetaminophen 5-325) 1 Each Tablet, 1-2 TABS PO Q4H PRN for PAIN, (Reported) Allergies Coded Allergies: No Known Allergies (Unverified , 08/03/20) CHERELLE REZA MD Aug 22, 2020 08:32
== END 2020-08-19 13:30 | disposition home or self-care (01) | DRG 221 ==
LOC: M ED 00:01 → M ED INP 02:40 → ENRESERV 04:11 → M MS5PR 05:07 → M MSPAV 08-13 11:15
PROVIDERS: ADMIT Surgery; ATTEND Surgery
PROC: 0DBU4ZZ Excision of Omentum, Percutaneous Endoscopic Approach (ICD-10-PCS; 2020-08-15)
PROC: 0WUF4JZ Supplement Abdominal Wall with Synthetic Substitute, Percutaneous Endoscopic Approach (ICD-10-PCS; 2020-08-15)
PROC: 8E0W4CZ Robotic Assisted Procedure of Trunk Region, Percutaneous Endoscopic Approach (ICD-10-PCS; 2020-08-15)
PROC: 0DB84ZZ Excision of Small Intestine, Percutaneous Endoscopic Approach (ICD-10-PCS; principal; 2020-08-15 10:00)
DX: K43.0 Incisional hernia with obstruction, without gangrene (principal); T81.32XA Disruption of internal operation (surgical) wound, not elsewhere classified, initial encounter; Z68.44 Body mass index [BMI] 60.0-69.9, adult; K56.600 Partial intestinal obstruction, unspecified as to cause; E66.01 Morbid (severe) obesity due to excess calories; I10 Essential (primary) hypertension; K21.9 Gastro-esophageal reflux disease without esophagitis; Z79.899 Other long term (current) drug therapy; Y83.2 Surgical operation with anastomosis, bypass or graft as the cause of abnormal reaction of the patient, or of later complication, without mention of misadventure at the time of the procedure

== ENCOUNTER → 2020-08-23 | Outpatient (CLI) | payer OTHER ==
[~2020-08-23] MED LIST changes: +AMIT10TA PO; -AMIT10TA7 PO; +GASTROGRAFIN SOLUTION 30ML (Q9963) As Ordered ONE; +ISOVUE-370 76% 100ML VIAL As Ordered ONE; +ONDA-83 PO; +PANT40TA29 PO
[2020-08-23 11:54] LABS: HEMOGLOBIN 11.2 g/dl (13.5-17.5); MEAN CORPUSCULAR HEMOGLOBIN 24.4 pg (27.0-33.0); MEAN CORPUSCULAR HGB CONC 29.5 g/dl (32.0-36.5); MEAN CORPUSCULAR VOLUME 82.8 fl (80.0-96.0); PLATELET COUNT, AUTOMATED 260 10^3/uL (150-450); RED BLOOD COUNT 4.59 10^6/uL (4.30-6.10); WHITE BLOOD COUNT 7.1 10^3/uL (4.0-10.0)
[2020-08-23 12:28] LABS: ALBUMIN 2.9 GM/DL (3.2-5.2); ALT/SGPT 33 U/L (12-78); BILIRUBIN,TOTAL 0.3 MG/DL (0.2-1.0); BLOOD UREA NITROGEN 9 MG/DL (7-18); CARBON DIOXIDE LEVEL 32 MEQ/L (21-32); CHLORIDE LEVEL 103 MEQ/L (98-107); CREATININE FOR GFR 0.86 MG/DL (0.70-1.30); GLOMERULAR FILTRATION RATE > 60.0 (>60); GLUCOSE, FASTING 82 MG/DL (70-100); POTASSIUM SERUM 4.4 MEQ/L (3.5-5.1); SODIUM LEVEL 141 MEQ/L (136-145)
--- NOTE | 2020-08-23 13:01 | REP ---
INDICATION: INCREASED ABD PAIN, POST BOWEL RECETION. COMPARISON: Comparison CT abdomen pelvis 12 August 2020.. TECHNIQUE: Helical scanning is acquired and 3 mm axial images re-formatted. Coronal and sagittal MPR images are generated. The CT contrast enhancement dose is 100 mL of intravenous Isovue 370. FINDINGS: Preliminary digital film touch up inspector radiograph shows a normal bowel gas pattern. The lung bases are clear on axial CT images. The liver and spleen are normal in size homogeneous in texture. Normal adrenal glands are seen. No abnormality is noted in the pancreas. The gallbladder is surgically absent. The patient is status post ventral hernia repair. There is a fairly large seroma deep to the repair in the anterior abdomen. This measures 14 cm in right to left dimension by 6.1 cm anterior to posterior by 18 cm in cranial to caudal span. Anterior skin maría elena are seen in there is a subcutaneous surgical drain in place. There is no evidence of subcutaneous seroma or hematoma. The previously noted small bowel obstruction pattern is resolved. No ascites or free air is seen. Seminal vesicles prostate and urinary bladder are unremarkable. IMPRESSION: There is a large hematoma seroma collection along the intraperitoneal side of the anterior abdominal wall as above, 14 x 6 x 18 cm. Surgical drain in the subcutaneous space. Previously noted bowel obstruction pattern is resolved. No hernia is seen. <Electronically signed by Senthil Hickman > 08/23/20 [id number]
== END ==
LOC: M LAB 10:17
PROVIDERS: ATTEND Nurse Practitioner
DX: R10.84 Generalized abdominal pain (principal); K42.0 Umbilical hernia with obstruction, without gangrene; Z98.890 Other specified postprocedural states
CPT/HCPCS: 36415; 74177; 80053; 85027; Q9963; Q9967

== ENCOUNTER 2020-09-17 10:47 | Emergency (ER) | payer OTHER ==
[~2020-09-17] VITALS: Ht 165.1 cm; Wt 162.5 kg
[~2020-09-17 10:47] MED LIST changes: -AMIT10TA PO; +AMIT10TA7 PO; -GASTROGRAFIN SOLUTION 30ML (Q9963) As Ordered ONE; -ISOVUE-370 76% 100ML VIAL As Ordered ONE
[2020-09-17 10:48] VITALS: BP 154/80
[2020-09-17] MEDS ORDERED: KETO10TAB (10:57)
[2020-09-17] MEDS ORDERED: TRAM50TA2 (10:57)
[2020-09-17] MEDS ORDERED: ACETAMINOPHEN 325 MG TAB PO ONE (11:15)
[2020-09-17 11:33] VITALS: O2SAT 98
== END 2020-09-17 12:00 | disposition home or self-care (01) ==
LOC: M ED 10:47
DX: R51.9 Headache, unspecified (principal); R05 Cough; R09.81 Nasal congestion; Z20.822 Contact with and (suspected) exposure to COVID-19; I25.2 Old myocardial infarction; I10 Essential (primary) hypertension; G47.33 Obstructive sleep apnea (adult) (pediatric); K21.9 Gastro-esophageal reflux disease without esophagitis; F17.200 Nicotine dependence, unspecified, uncomplicated
CPT/HCPCS: 99284; U0003

== ENCOUNTER → 2020-09-24 | Outpatient (CLI) | payer OTHER ==
[~2020-09-24] MED LIST changes: +KETO10TAB; +TRAM50TA2
--- NOTE | 2020-09-24 22:42 | REP ---
INDICATION: INCISIONAL HERNIA, SEROMA/HEMATOMA COMPARISON: None. TECHNIQUE: Real time sevilla scale ultrasound examination using curved array transducer. FINDINGS: Directed ultrasound examination demonstrates a 5.8 x 1.2 x 10.8 cm fluid collection and the previously placed mesh for hernia repair has a somewhat wavy appearance possibly collapsed and not afixed. IMPRESSION: Fluid collection measuring 5.8 x 1.2 cm x 10.8 cm suggesting seroma versus hematoma and decreased in size when compared to recent CT dated 08/23/2020. Wavy appearance to the hernia mesh which may represent broken down repair. <Electronically signed by Valdemar Landry > 09/24/20 [id number]
== END ==
LOC: M RAD 14:08
PROVIDERS: ATTEND Surgery
DX: K56.609 Unspecified intestinal obstruction, unspecified as to partial versus complete obstruction (principal); K43.1 Incisional hernia with gangrene

== ENCOUNTER 2020-09-26 19:14 | Emergency (ER) | payer OTHER ==
[~2020-09-26] VITALS: Ht 165.1 cm; Wt 161.4 kg
[2020-09-26] MEDS ORDERED: KETO10TAB PO (19:48)
[2020-09-26] MEDS ORDERED: ROBA750T4 PO (19:50)
[2020-09-26] MEDS ORDERED: ACETAMINOPHEN 325 MG TAB PO ONE (21:30)
[2020-09-26 21:37] LABS: BASO % 0.2 % (0.0-1.0); EOS # 0.4 10^3/uL (0.0-0.5); HEMATOCRIT 42.5 % (42.0-52.0); HEMOGLOBIN 13.1 g/dl (13.5-17.5); LYMPH # 2.7 10^3/uL (1.5-5.0); LYMPH % 28.6 % (24.0-44.0); MEAN CORPUSCULAR HEMOGLOBIN 24.9 pg (27.0-33.0); MEAN CORPUSCULAR HGB CONC 30.8 g/dl (32.0-36.5); MEAN CORPUSCULAR VOLUME 80.6 fl (80.0-96.0); MONO # 0.4 10^3/uL (0.0-0.8); MONO % 4.5 % (2.0-8.0); NEUTROPHILS % 62.4 % (36.0-66.0); PLATELET COUNT, AUTOMATED 216 10^3/uL (150-450); RED BLOOD COUNT 5.27 10^6/uL (4.30-6.10); WHITE BLOOD COUNT 9.6 10^3/uL (4.0-10.0)
--- NOTE | 2020-09-26 21:45 | REPVR ---
PROCEDURE INFORMATION: Exam: US Duplex Right Upper Extremity Veins, Limited Exam date and time: 09/26/2020 8:56 PM Age: 40 years old Clinical indication: Pain; Arm, upper; Right; Additional info: Swelling upper arm and pain in arm TECHNIQUE: Imaging protocol: Real-time Duplex ultrasound of the Right Upper Extremity with 2-D sevilla scale, color Doppler flow and spectral waveform analysis with image documentation. Limited exam focused on the right upper extremity veins. COMPARISON: No relevant prior studies available. FINDINGS: Right deep veins: Unremarkable. Axillary and brachial veins are patent throughout without thrombus. Normal Doppler waveforms. Normal compressibility and/or augmentation response. Visualized internal jugular and subclavian veins are patent. Right superficial veins: Unremarkable. Visualized cephalic and basilic veins are patent without thrombus. Soft tissues: Unremarkable. IMPRESSION: No sonographic evidence of deep vein thrombosis. Electronically signed by: Aneesh Fiore On 09/26/2020 21:45:26 PM
[2020-09-26] MEDS ORDERED: methocarbamoL 750 MG TAB PO ONE (21:50)
[2020-09-26 21:53] VITALS: BP 138/91
[2020-09-26] MEDS ORDERED: NEOSPORIN OINT 0.9 GM PKT TOP ONE (21:55)
--- NOTE | 2020-09-27 01:17 | ECGEPIP ---
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
== END 2020-09-26 22:03 | disposition home or self-care (01) ==
LOC: M ED 19:14
DX: S43.51XA Sprain of right acromioclavicular joint, initial encounter (principal); S41.101A Unspecified open wound of right upper arm, initial encounter; X58.XXXA Exposure to other specified factors, initial encounter; Y92.9 Unspecified place or not applicable; Y93.9 Activity, unspecified; Y99.9 Unspecified external cause status; I25.2 Old myocardial infarction; I10 Essential (primary) hypertension; E78.5 Hyperlipidemia, unspecified; Z79.899 Other long term (current) drug therapy

== ENCOUNTER → 2020-11-14 | Outpatient (CLI) | payer OTHER ==
[~2020-11-14] MED LIST changes: +ROBA750T4 PO
--- NOTE | 2020-11-14 08:39 | REP ---
INDICATION: UNSP INTESTNL OBST INCISIONAL HERNIA W/ GAGRENE COMPARISON: 08/23/2020 TECHNIQUE: Axial noncontrast images from the lung bases to the pubic symphysis with coronal and sagittal reformations. This CT examination was performed using the following dose reduction techniques: Automated exposure control, adjustment of mA and/or kv according to the patient's size, and use of iterative reconstruction technique. FINDINGS: Postsurgical changes with granulation tissue noted in the midline subcutaneous fat along the anterior abdomen. There is no associated fluid collection to suggest abscess and there is no evidence for associated hernia. Previously identified seroma has completely resolved. Liver, spleen, pancreas, bilateral adrenal glands and kidneys are normal by noncontrast evaluation. Evidence for prior cholecystectomy. The enteric system is without obstruction or acute inflammatory process. Evidence for prior bowel anastomosis noted. Pelvis demonstrates normal bladder and age-appropriate prostate/seminal vesicles. No ascites. No free air. No adenopathy. Abdominal aorta without aneurysm. Musculoskeletal structures are intact and without acute osseous abnormality. Lung bases are clear. IMPRESSION: Postsurgical changes noted at the midline subcutaneous tissues of the anterior abdominal wall without underlying fluid collection/abscess or hernia. <Electronically signed by Valdemar Landry > 11/14/20 0883
== END ==
LOC: M RAD 07:44
PROVIDERS: ATTEND Surgery
DX: K56.609 Unspecified intestinal obstruction, unspecified as to partial versus complete obstruction (principal); K43.1 Incisional hernia with gangrene

== ENCOUNTER → 2021-04-27 | Outpatient (CLI) | payer OTHER ==
[~2021-04-27] MED LIST changes: +OMEP40CA4 PO; -OMEP40CA97 PO; +TYLE650T38 PO
== END ==
LOC: M LABSMTC 09:05
PROVIDERS: ATTEND Anesthesiology
DX: Z20.828 Contact with and (suspected) exposure to other viral communicable diseases (principal); Z11.52 Encounter for screening for COVID-19

== ENCOUNTER 2021-05-01 10:43 | Day surgery (SDC) | payer OTHER ==
[~2021-05-01] VITALS: Ht 165.1 cm; Wt 164.2 kg
[~2021-05-01 10:43] MED LIST changes: +NS 1,000 ML IV ONE
--- OUTSIDE RECORDS SUMMARY | 2021-05-01 10:48 | CCD | Continuity of Care Document ---
Author Author Bud YUSUF MD Organization Unknown Address [address] [facility] [address] [place] [address] Phone [phone] Care Team Providers Care Electronic Field Service Engineer Name Role Phone David Valencia M.D. AUTM [phone] AUTM Unavailable Adolphio AUTM [phone] Problems Active Problems Provider Date Essential hypertension William Yusuf MD Onset: 019 Social History Type Date Description Comments Sex Unknown ETOH Use Sociable Recreational Drug Use Denies Drug Use Tobacco Use Start: Unknown 1 PPD Allergies, Adverse Reactions, Alerts Description No Known Drug Allergies Medications Active Medications SIG Qnty Indications Ordering Provide r Date Pantoprazole Sodium 40mg Tablets D R Take One Tablet By Mouth Once Daily 30tabs K43.1 William hoang MD 11/29/[address] one tab bid prn pain 60tabs William Yusuf MD Tramadol HCL 50mg Tablets 1-2 every 6 hours as needed for pain after surgery 40tabs R10.84 Romeo hollins NP 08/29/2020 Ketorolac Tromethamine 10mg Tablet s 1 by mouth twice a day as needed pain 30tabs William pedro MD 08/20/2020 Zofran 4mg Tablets take one every 6 hours as needed for nausea 30tabs William Yusuf MD 07/14 Abdominal Binder/Elastic/3X-Large Elast 3X Misc use as directed for abdominal support 1units L76.34 Gabo Yusuf MD 03/13/2020 History Medications Protonix 40mg Tablets DR 1 by mouth every day 30tabs K43.1 William Yusuf MD 1 - 11/29/2020 Immunizations Description No Information Available Vital Signs Date Vital Result Comment 02/14/2021 9:48am BP Systolic 161 mmHg BP Diastolic 91 mmHg Body Temperature 98.1 F Height 65 inches 5'5" Weight 362.00 lb BMI (Body Mass Index) 60.2 kg/m2 [place] Body Weight 136 lb Weight 164.203 kg BSA (Body Surface Area) 2.55 m2 11/29/2020 8:34am BP Systolic 134 mmHg BP Diastolic 86 mmHg Heart Rate 66 /min Height 65 inches 5'5" Weight 356.25 lb BMI (Body Mass Index) 59.3 kg/m2 [place] Body Weight 136 lb Weight 161.595 kg BSA (Body Surface Area) 2.53 m2 Results Test Acquired Date Facility Test Result H/L Range Note Complete Blood Count 08/23/2020 [facility] [address] [place], [place] [id number] [phone] White Blood Count 7.1 10 Normal 4.0-10.0 Red Blood Count 4.59 10 Normal 4.30-6.10 Hemoglobin 11.2 g/dL Low 13.5-17.5 Hematocrit 38.0 % Low 42.0-52.0 Mean Corpuscular Volume 82.8 fl Normal 80.0-96.0 Mean Corpuscular Hemoglobin 24.4 pg Low 27.0-33.0 Mean Corpuscular HGB Conc 29.5 g/dL Low 32.0-36.5 Red Cell Distribution Width 15.8 % High 11.5-14.5 Platelet Count, Automated 260 10 Normal 150-450 Nucleated Red Blood Cell % 0.0 % Normal 0-0 Comprehensive Metabolic Profil 08/23/2020 [facility] Main Lab [address] [place] [address] [phone] Glucose, Fasting 82 mg/dL Normal 70-100 Blood Urea Nitrogen 9 mg/dL Normal 7-18 Creatinine For GFR 0.86 mg/dL Normal 0.70-1.30 Glomerular Filtration Rate > 60.0 Normal >60 1 Sodium Level 141 mEq/L Normal 136-145 Potassium Serum 4.4 mEq/L Normal 3.5-5.1 Chloride Level 103 mEq/L Normal 98-107 Carbon Dioxide Level 32 mEq/L Normal 21-32 Anion Gap 6 mEq/L Low 8-16 Calcium Level 9.0 mg/dL Normal 8.5-10.1 Ast/Sgot 14 U/L Normal 7-37 Alt/SGPT 33 U/L Normal 12-78 Alkaline Phosphatase 101 U/L Normal 45-117 Bilirubin,Total 0.3 mg/dL Normal 0.2-1.0 Total Protein 7.0 GM/DL Normal 6.4-8.2 Albumin 2.9 GM/DL Low 3.2-5.2 Albumin/Globulin Ratio 0.7 Normal 1 Units are mL/min/1.73 m2 Chronic Kidney Disease Staging per NKF: Stage I & II GFR >=60 Normal to Mildly Decreased Stage III GFR 30-59 Moderately Decreased Stage IV GFR 15-29 Severely Decreased Stage V GFR <15 Very Little GFR Left ESRD GFR <15 on CERTIFIED MEDICAL TRANSCRIPTIONIST Procedures Description No Information Available Medical Devices Description No Information Available Encounters Type Date Location Provider Dx Diagnosis Office Visit 10/04/2020 10:45a [facility] Gabo Yusuf MD K56.609 Unsp intestnl obst, unsp as to partial versus complete obst Z48.815 Encntr for surgical aftcr fo llowing surgery on the [facility] sys Office Visit 09/11/2020 9:45a [facility] Gabo Yusuf MD K56.609 Unsp intestnl obst, unsp as to partial versus complete obst K43.1 Incisional hernia with gangr nakia E66.01 Morbid (severe) obesity due to excess calories Z48.815 Encntr for surgical aftcr fo llowing surgery on the dgstv sys Office Visit 08/29/2020 10:00a [facility] Romeo hollins, GUNNAR R10.84 Generalized abdominal pain Z48.89 Encounter for other specifie d surgical aftercare K56.609 Unsp intestnl obst, unsp as to partial versus complete obst K42.0 Umbilical hernia with obstru ction, without gangrene Office Visit 08/23/2020 9:00a [facility] Romeo hollins, GUNNAR R10.84 Generalized abdominal pain K66.8 Other specified disorders of peritoneum Z48.89 Encounter for other specifie d surgical aftercare Assessments Date Code Description Provider 11/29/2020 K43.1 Incisional hernia with gangrene William Yusuf MD 11/29/2020 K56.609 Unspecified intestin al obstruction, unspecified as to partial versus complete obstruction William Yusuf MD 11/29/2020 E66.01 Morbid (severe) obesity due to e xcess calories William Yusuf MD 11/06/2020 K56.609 Unspecified intestin al obstruction, unspecified as to partial versus complete obstruction William Yusuf MD 11/06/2020 K43.1 Incisional hernia with gangrene William Yusuf MD 11/06/2020 E66.01 Morbid (severe) obesity due to e xcess calories William Yusuf MD 10/04/2020 K56.609 Unspecified intestin al obstruction, unspecified as to partial versus complete obstruction William Yusuf MD 10/04/2020 Z48.815 Encounter for surgic al aftercare following surgery on the digestive system William Yusuf MD 09/11/2020 K56.609 Unspecified intestin al obstruction, unspecified as to partial versus complete obstruction William Yusuf MD 09/11/2020 K43.1 Incisional hernia with gangrene William Yusuf MD 09/11/2020 E66.01 Morbid (severe) obesity due to e xcess calories William Yusuf MD 09/11/2020 Z48.815 Encounter for surgic al aftercare following surgery on the digestive system William Yusuf MD 08/29/2020 R10.84 Generalized abdominal pain Romeo Joe NP 08/29/2020 Z48.89 Encounter for other specified santizo rgical aftercare Romeo Joe NP 08/29/2020 K56.609 Unspecified intestin al obstruction, unspecified as to partial versus complete obstruction Romeo Joe NP 08/29/2020 K42.0 Umbilical hernia with obstructio n, without gangrene Romeo Joe NP 08/23/2020 R10.84 Generalized abdominal pain Romeo Joe NP 08/23/2020 K66.8 Other specified disorders of per itoneum Romeo Joe NP 08/23/2020 Z48.89 Encounter for other specified santizo rgical aftercare Romeo Joe NP Plan of Treatment No Information Available Functional Status Description No Information Available Mental Status Description No Information Available Referrals Refer to Reason for Referral Status Appt Date Nancy Moreno F.N.P. KEN Created [facility] [address] [place] [address] [phone] Yamil Ramos M.D. anemia, D64.9 Scheduled 11/05/2020 [facility] Gastroenterology [address] [facility], [address] [place] [address] [phone] William Yusuf MD UNSPECIFIED INTESTINAL OBSTRUCTIONS. K56.609 Scheduled 11/06/2020 [address] [place] [address] [phone]
--- OUTSIDE RECORDS SUMMARY | 2021-05-01 10:48 | CCD | Continuity of Care Document ---
Author Author Bud YUSUF MD Organization Unknown Address [address] [facility] [address] [place] [address] Phone [phone] Care Team Providers Care Wire Wheeler Name Role Phone David Valencia M.D. AUTM [phone] AUTM Unavailable Adolphio AUTM [phone] Problems Active Problems Provider Date Essential hypertension [...] for pain after surgery 40tabs R10.84 Romeo Rogers eteverardo, GUNNAR 08/29/2020 Ketorolac Tromethamine 10mg Tablet s 1 by mouth twice a day as needed pain 30tabs William pedro MD 08/20/2020 Zofran 4mg Tablets take one every 6 hours as needed for nausea 30tabs William Yusuf MD 07/14 Abdominal Binder/Elastic/3X-Large Elast 3X Misc use as directed for abdominal support 1units L76.34 Gabo Yusuf MD 03/13/2020 Immunizations Description No Information Available Vital Signs Date Vital Result Comment 02/14/2021 9:48am BP Systolic 161 mmHg BP Diastolic 91 mmHg Body Temperature 98.1 F Height 65 inches 5'5" Weight 362.00 lb BMI (Body Mass Index) 60.2 kg/m2 [place] Body Weight 136 lb Weight 164.203 kg BSA (Body Surface Area) 2.55 m2 11/29/2020 8:34am BP Systolic 134 mmHg BP Diastolic 86 mmHg Heart Rate 66 /min Height 65 inches 5'5" Weight 356.25 lb BMI (Body Mass Index) 59.3 kg/m2 [place] Body Weight 136 lb Weight 161.595 kg BSA (Body Surface Area) 2.53 m2 Results Description No Information Available Procedures Date Code Description Status 02/14/2021 62812 Office/Outpatient Established Lo w MDM 20-29 Min Completed Medical Devices Description No Information Available Encounters Type Date Location Provider Dx Diagnosis Office Visit 02/14/2021 9:45a [facility] Gabo Yusuf MD K43.1 Incisional hernia with gangr nakia E66.01 Morbid (severe) obesity due to excess calories R10.13 Epigastric pain Z48.815 Encntr for surgical aftcr fo llowing surgery on the [facility] sys Office Visit 11/29/2020 8:45a [facility] Gabo Yusuf MD K43.1 Incisional hernia with gangr nakia K56.609 Unsp intestnl obst, unsp as to partial versus complete obst E66.01 Morbid (severe) obesity due to excess calories Z48.815 Encntr for surgical aftcr fo llowing surgery on the [facility] sys Office Visit 11/06/2020 9:30a [facility] Gabo Yusuf MD K56.609 Unsp intestnl obst, unsp as to partial versus complete obst K43.1 Incisional hernia with gangr nakia E66.01 Morbid (severe) obesity due to excess calories Z48.815 Encntr for surgical aftcr fo llowing surgery on the [facility] sys Assessments Date Code Description Provider 02/14/2021 K43.1 Incisional hernia with gangrene William Yusuf MD 02/14/2021 E66.01 Morbid (severe) obesity due to e xcess calories William Yusuf MD 02/14/2021 R10.13 Epigastric pain William anne MD 02/14/2021 Z48.815 Encounter for surgic al aftercare following surgery on the digestive system William Yusuf MD 11/29/2020 K43.1 Incisional hernia with gangrene William Yusuf MD 11/29/2020 K56.609 Unspecified intestin al obstruction, unspecified as to partial versus complete obstruction William Yusuf MD 11/29/2020 E66.01 Morbid (severe) obesity due to e xcess calories William Yusuf MD 11/29/2020 Z48.815 Encounter for surgic al aftercare following surgery on the digestive system William Yusuf MD 11/06/2020 K56.609 Unspecified intestin al obstruction, unspecified as to partial versus complete obstruction William Yusuf MD 11/06/2020 K43.1 Incisional hernia with gangrene William Yusuf MD 11/06/2020 E66.01 Morbid (severe) obesity due to e xcess calories William Yusuf MD 11/06/2020 Z48.815 Encounter for surgic al aftercare following surgery on the digestive system William Yusuf MD Plan of Treatment Future Appointment(s):* 05/15/2021 11:15 am - SRINI Bowers at [facility] * 05/01/2021 1:15 pm - William Yusuf MD at [facility] 02/14/2021 - William Yusuf MD* K43.1 Incisional hernia with gangrene* Comments:* Patient continues to do well. No signs of recurrence as of yet but I only placed a slowly absorbable mesh during the repair because of the need for bowel resection at that time. Usually discontinued strength of up to 12 months and gradually gets ribs are between 14 to 18 months. I told him I am have expecting that he he will have a recurrent hernia. He remains morbidly obese. He is interested in bariatric surgery though has not established with a bariatric surgeon as of yet. I counseled him to try to get the referral to bariatric surgery. * E66.01 Morbid (severe) obesity due to excess calories * R10.13 Epigastric pain* Comments:* Patient continues to complain of this intermittent episodes of epigastric pain, nausea and vomiting especially in the middle of the night that is somewhat responsive to pantoprazole 40 mg daily that I had given to him. This is present even before the hernia repair was done. I will set him up for an EGD.I discussed with the patient the details of the proposed procedure, the benefits of performing the procedure, the most common risks on doing the procedure. This may include risks of aspiration, bleeding, perforation and adverse drug reaction. I have given him a chance to ask questions, voice out concerns. Patient has agreed to proceed * Z48.815 Encounter for surgical aftercare following surgery on the digestive system Functional Status Description No Information Available Mental Status Description No Information Available Referrals Refer to Dr Reason for Referral Status Appt Date Nancy Moreno F.NJusto KEN Created [facility] [address] [place], [place] [address] [phone]
--- OUTSIDE RECORDS SUMMARY | 2021-05-01 10:48 | CCD | Continuity of Care Document ---
Author Author Bud YUSUF MD Organization Unknown Address [address] [facility] [address] [place] [address] Phone [phone] Care Team Providers Care Puppy Sitter Name Role Phone David Valencia M.D. AUTM [phone] AUTM Unavailable Adolphio AUTM [phone] Problems Active Problems Provider Date Essential hypertension [...] lb BMI (Body Mass Index) 60.2 kg/m2 [place] Body Weight 136 lb Weight 164.203 kg BSA (Body Surface Area) 2.55 m2 11/29/2020 8:34am BP Systolic 134 mmHg BP Diastolic 86 mmHg Heart Rate 66 /min Height 65 inches 5'5" Weight 356.25 lb BMI (Body Mass Index) 59.3 kg/m2 [place] Body Weight 136 lb Weight 161.595 kg BSA (Body Surface Area) 2.53 m2 Results Test Acquired Date Facility Test Result H/L Range Note Complete Blood Count 08/23/2020 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 Procedures Description No Information Available Medical Devices Description No Information Available Encounters Type Date Location Provider Dx Diagnosis Office Visit 11/29/2020 8:45a Merged With [facility] Gabo Yusuf MD K43.1 Incisional hernia with gangr nakia K56.609 Unsp intestnl obst, unsp as to partial versus complete obst E66.01 Morbid (severe) obesity due to excess calories Z48.815 Encntr for surgical aftcr [facility] Office Visit 11/06/2020 9:30a Merged With [facility] Gabo Yusuf MD K56.609 Unsp intestnl obst, unsp as to partial versus complete obst K43.1 Incisional hernia with gangr nakia E66.01 Morbid (severe) obesity due to excess calories Z48.815 Encntr for surgical aftcr fo llowing surgery on the [facility] sys Office Visit 10/04/2020 10:45a Merged With [facility] Gabo Yusuf MD K56.609 Unsp intestnl obst, unsp as to partial versus complete obst Z48.815 Encntr for surgical aftcr fo [facility]lowing surgery on the [facility] Office Visit 09/11/2020 9:45a Merged With [facility] Gabo Yusuf MD K56.609 Unsp intestnl obst, unsp as to partial versus complete obst K43.1 Incisional hernia with gangr nakia E66.01 Morbid (severe) obesity due to excess calories Z48.815 Encntr for surgical aftcr fo llowing surgery on the [facility] sys Office Visit 08/29/2020 10:00a Merged With [facility] 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 Romeo Rogers ett, [employer] SUPERVISOR R10.84 Generalized abdominal pain K66.8 Other specified [...] on the digestive system William Yusuf MD 10/04/2020 K56.609 Unspecified intestin [...] aftercare Romeo Joe NP Plan of Treatment Future Appointment(s):* 05/15/2021 11:15 am - SRINI Bowers at [facility] * 05/01/2021 1:00 pm - William Yusuf MD at [facility] Functional Status Description No Information Available Mental Status Description No Information Available Referrals Refer to Dr Reason for Referral Status Appt Date Nancy Moreno F.N.P. KEN Created [facility] [address] [place], [place] [address] [phone] Yamil Ramos M.D. anemia, D64.9 Scheduled 11/05/2020 [facility], Gastroenterology [address] [facility] [address], [address] [place] [address] [phone] William Yusuf MD UNSPECIFIED INTESTINAL OBSTRUCTIONS. K56.609 Scheduled 11/06/[address] [place] [address] [phone]
--- OUTSIDE RECORDS SUMMARY | 2021-05-01 10:48 | CCD ---
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 Name Role Phone Erik David Unavailable Unavailable Allergies Code Code System Name Reaction Severity Status Onset NKDA Medications Name Status Start Date Stop Date [...] MOUTH EVERY EIGHT HOURS NEEDED Completed 07/26/2020 EC-Naproxen 500 mg tablet,delayed releas e TAKE ONE TABLET BY MOUTH TWICE DAILY NEEDED FOR PAIN Active Not available hydrocodone 5 mg-acetaminophen 325 mg ta blet TAKE ONE TABLET BY MOUTH EVERY 6 HOURS NEEDED FOR PAIN MAX DAILY DOSE FOUR TABLETS Active Not available ibuprofen 600 mg tablet TAKE ONE TABLET BY MOUTH THREE TIMES DAILY WITH FOOD Completed 07/26/2020 ibuprofen 800 mg tablet TAKE ONE TABLET BY MOUTH EVERY 8 HOURS Active Not available ketorolac 10 mg tablet TAKE ONE TABLET BY MOUTH TWICE DAILY NEEDED FOR PAIN Completed 01/18/2021 lidocaine 4 % topical cream apply thin layer TO affected AREA ON back EVERY 8 HOURS NEEDED DIRECTED Completed 07/26/2020 meloxicam 7.5 mg tablet TAKE ONE TABLET BY MOUTH TWICE DAILY Completed methocarbamol 750 mg tablet TAKE ONE TABLET BY MOUTH THREE TIMES DAILY Completed 01/18/2021 omeprazole 20 mg capsule,delayed release TAKE ONE CAPSULE BY MOUTH ONCE DAILY Active No t available ondansetron HCl 4 mg tablet TAKE ONE TABLET BY MOUTH EVERY 6 HOURS NEEDED FOR NAUSEA Completed 09/27/2020 oxycodone-acetaminophen 5 mg-325 mg tabl et TAKE 1 OR 2 TABLETS BY MOUTH EVERY 6 HOURS NEEDED FOR PAIN MAX DAILY DOSE SIX TABLETS Completed 09/27/2020 pantoprazole 40 mg tablet,delayed releas e TAKE ONE TABLET BY MOUTH ONCE DAILY Active Not available sucralfate 1 gram tablet TAKE ONE TABLET BY MOUTH TWICE DAILY Completed tramadol 50 mg tablet TAKE 1 OR 2 TABLETS BY MOUTH EVERY 6 HOURS NEEDED FOR PAIN AFTER surgery MAX DAILY DOSE SIX TABLETS Completed 01/18/2021 Notes: Some medications listed in Docume nt: #[id number] could not be added to this patient's chart. Please review this document and add these medications to the patient's chart manually as needed. 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 History Conjunctival Finding Active 12/28/2017 History Pain of Right Eye Active 12/28/2017 History Globe Finding Active 12/28/2017 History Body Mass Index 30+ - Obesity Active 02/17/2018 Hi story Severe Obesity Active 02/17/2018 History Gastroesophageal Reflux Disease without Esophagitis Active 02/17/2018 History Epigastric Hernia Active 02/17/2018 History Adjustment Disorder with Depressed Mood Active 03/03/20 18 History Obstructive Sleep Apnea Syndrome Active 03/03/2018 History Finding of Bone of Lower Limb Active 03/16/2018 Hi story Dental Caries on Smooth Surface Penetrating into Pulp Active 06/07/2018 History Hypertensive Disorder Active 2018 History Clinical Finding Active 2018 History Under Immunized Active 2018 History Low Back Pain Active 08/05/2018 History Ingrowing Nail Active 12/09/2018 History Umbilical Hernia Active 03/16/2019 History Dysuria Active 04/05/2019 History Finding of Defecation Active 04/05/2019 History Anemia Active 07/26/2020 Smoker Active 09/27/2020 Procedures Date Name Performed by Appendectomy Information not avai lable Procedure on Gallbladder Information not available Hernia Repair Information not avai lable 07/26/[address] [id number] (Work Place) Notes: gall bladder removed, appendix re moved, hernia repairx2, lump removed from right breast area, hernia repair Results Lab Results Date Name Specimen Result Interpretation Description Value Range Status Address 01/18/2021 Iron, Serum Blood venous Low Iron, Total 47 mc g/dL 50-180 mcg/dL Final [facility]: [address] [facility] 01/18/2021 CBC W/ Auto Diff Blood venous Normal White B lood Cell Count 5.7 thousand/uL 3.8-10.8 thousand/uL Final [facility]: [address] [facility] Blood venous Normal Red Blood Cell Count 5.3 9 million/uL 4.20-5.80 million/uL Final [facility]: [address] [facility] Blood venous Normal Hemoglobin 13.2 g/dL 13.2-17. 1 g/dL Final [facility]: [address] [facility] Blood venous Normal Hematocrit 40.0 % 38.5-50.0 % Final [facility]: [address] [facility] Blood venous Low Mcv 74.2 fL 80.0-100.0 fL Fi nal [facility]: [address] [facility] Blood venous Low Mch 24.5 pg 27.0-33.0 pg Fin al [facility]: [address] [facility] Blood venous Normal Mchc 33.0 g/dL 32.0-36.0 g/dL Final [facility]: [address] [facility] Blood venous High Rdw 16.5 % 11.0-15.0 % Final [facility]: [address] [facility] Blood venous Normal Platelet Count 149 thous and/uL 140-400 thousand/uL Final [facility] [address] [facility] venous High Mpv 12.8 fL 7.5-12.5 fL Linda l [facility]: [address] [facility] Blood venous Normal Absolute Neutrophils 352 3 cells/uL 3482-2411 cells/uL Final [facility]: [address] [facility] Blood venous Normal Absolute Lymphocytes 128 8 cells/uL 850-3900 cells/uL Final [facility]: [address] [facility] Blood venous Normal Absolute Monocytes 439 c ells/uL 200-950 cells/uL Final [facility]: [address] [facility] Blood venous Normal Absolute Eosinophils 428 cells/uL 15-500 cells/uL Final [facility]: [address] , [place] Blood venous Normal Absolute Basophils 23 ce lls/uL 0-200 cells/uL Final [facility]: [address] , [place] Blood venous Normal Neutrophils 61.8 % 38-80 % Fi [facility]: [address] , [place] Blood venous Normal Lymphocytes 22.6 % 15-49 % Fi [facility]: [address] [facility] Blood venous Normal Monocytes 7.7 % 0-13 % [facility]: [address] , [place] Blood venous Normal Eosinophils 7.5 % 0-8 % Fin [facility]: [address] , [place] Blood venous Normal Basophils 0.4 % 0-2 % [facility]: [address] , [place] 09/26/2020 CBC W/ Auto Diff Normal White Blood Count 9.6 10 4.0-10.0 10 [facility]: [address] [place] [address] Normal Red Blood Count 5.27 10 4.30-6.10 10 [facility]: [address] [place] [address] Low Hemoglobin 13.1 g/dL 13.5-17.5 g/dL [facility]: [address] [place] [address] Normal Hematocrit 42.5 % 42.0-52.0 % [facility]: [address] [place] [address] Normal Mean Corpuscular Volume 80.6 fL 80.0 -96.0 fL [facility]: [address] [place] [address] Low Mean Corpuscular Hemoglobin 24.9 pg 27.0-33.0 pg [facility]: 0 [facility] Low Mean Corpuscular HGB Conc 30.8 g/dL 32.0-36.5 g/dL [facility]: [address] [place] [address] High Red Cell Distribution Width 15.8 % 1 1.5-14.5 % [facility]: [address] [place] [address] Normal Platelet Count, Automated 216 10 150 -450 10 [facility]: 0 [facility] Normal Neutrophils % 62.4 % 36.0-66.0 % [facility]: [address] [facility] Normal Lymph % 28.6 % 24.0-44.0 % Final [facility]: [address] [facility] Normal Pickett % 4.5 % 2.0-8.0 % Final [facility]: [address] [facility] High Eos % 4.0 % 0.0-3.0 % [facility]: [address] [facility] Normal Baso % 0.2 % 0.0-1.0 % Final [facility]: [address] [facility] Normal Immature Granulocyte % 0.3 % 0-3.0 % [facility]: [address] [facility] Normal Nucleated Red Blood Cell % 0.0 % 0- 0 % [facility]: [address] [facility] Normal Neutrophils # 6.0 10 1.5-8.5 10 [facility]: [address] [facility] Normal Lymph # 2.7 10 1.5-5.0 10 [facility]: [address] [facility] Normal Pickett # 0.4 10 0.0-0.8 10 [facility]: 0 [facility] Normal Eos # 0.4 10 0.0-0.5 10 [facility]: [address] [facility] Normal Baso # 0.0 10 0.0-0.2 10 [facility]: [address] [facility] 09/26/2020 Istat Chem8+ Panel Normal Istat HCT 41.0 % 38. 0-51.0 % [facility]: [address] [facility] Normal Istat Glucose 88 mg/dL 70-105 mg/dL [facility]: 0 [facility] Normal Istat Sodium 140 mEq/L 136-145 mEq/L [facility]: 0 [facility] Normal Istat Potassium 4.0 mEq/L 3.5-5.1 mE q/L [facility]: [address] [facility] Normal Istat Ca++ 4.5 mg/dL 4.5-5.3 mg/dL F [facility]: [address] [facility] Normal Istat Chloride 102 mEq/L 98-109 mEq/ L [facility]: [address] [place] [address] High Istat CO2 30.0 mm/L 23.0-27.0 mm/L F [facility]: [address] [facility] Normal Istat BUN 11 mg/dL 8-26 mg/dL [facility]: [address] [place] [address] Normal Istat Creatinine 1.0 mg/dL 0.6-1.3 m g/dL [facility]: [address] [place] [address] 08/23/2020 Cbc Normal White Blood Count 7.1 10 4.0-10. 0 10 [facility]: [address] [place] [address] Normal Red Blood Count 4.59 10 4.30-6.10 10 [facility]: [address] [place] [address] Low Hemoglobin 11.2 g/dL 13.5-17.5 g/dL [facility]: [address] [place] [address] Low Hematocrit 38.0 % 42.0-52.0 % [facility]: [address] [place] [address] Normal Mean Corpuscular Volume 82.8 fL 80.0 -96.0 fL [facility]: [address] [place] [address] Low Mean Corpuscular Hemoglobin 24.4 pg 27.0-33.0 pg [facility]: [address] [place] [address] Low Mean Corpuscular HGB Conc 29.5 g/dL 32.0-36.5 g/dL [facility]: [address] [place] [address] High Red Cell Distribution Width 15.8 % 1 1.5-14.5 % [facility]: [address] [place] [address] Normal Platelet Count, Automated 260 10 150 -450 10 [facility]: [address] [place] [address] Normal Nucleated Red Blood Cell % 0.0 % 0- 0 % [facility]: [address] [facility] 08/23/2020 CMP, Serum or Plasma Normal Glucose, Fastin g 82 mg/dL 70-100 mg/dL [facility]: 83 0 [facility] Normal Blood Urea Nitrogen 9 mg/dL 7-18 mg/ dL [facility]: [address] [facility] Normal Creatinine for GFR 0.86 mg/dL 0.70-1 .30 mg/dL [facility]: [address] [facility] Normal Glomerular Filtration Rate > 60.0 >6 0 [facility]: [address] [facility] Normal Sodium Level 141 mEq/L 136-145 mEq/L [facility]: 0 [facility] Normal Potassium Serum 4.4 mEq/L 3.5-5.1 mE q/L [facility]: [address] [facility] Normal Chloride Level 103 mEq/L 98-107 mEq/ L [facility]: [address] [facility] Normal Carbon Dioxide Level 32 mEq/L 21-32 mEq/L [facility]: [address] [facility] Low Anion Gap 6 mEq/L 8-16 mEq/L [facility]: [address] [facility] Normal Calcium Level 9.0 mg/dL 8.5-10.1 mg/ dL [facility]: [address] [facility] Normal AST/SGOT 14 U/L 7-37 U/L [facility]: [address] [facility] Normal ALT/SGPT 33 U/L 12-78 U/L [facility]: [address] [facility] Normal Alkaline Phosphatase 101 U/L 45-117 U/L [facility]: 0 [facility] Normal Bilirubin,total 0.3 mg/dL 0.2-1.0 mg /dL [facility]: [address] [facility] Normal Total Protein 7.0 gm/dL 6.4-8.2 gm/d L [facility]: [address] [facility] Low Albumin 2.9 gm/dL 3.2-5.2 gm/dL Linda l [facility]: [address] [facility] Normal Albumin/globulin Ratio 0.7 [facility]: [address] [place] [address] 08/19/2020 CBC W/ Auto Diff Normal White Blood Count 8.0 10 4.0-10.0 10 [facility]: [address] [place] [address] Low Red Blood Count 4.27 10 4.30-6.10 10 [facility]: [address] [place] [address] Low Hemoglobin 10.6 g/dL 13.5-17.5 g/dL [facility]: [address] [place] [address] Low Hematocrit 34.6 % 42.0-52.0 % [facility]: [address] [place] [address] Normal Mean Corpuscular Volume 81.0 fL 80.0 -96.0 fL [facility]: [address] [place] [address] Low Mean Corpuscular Hemoglobin 24.8 pg 27.0-33.0 pg [facility]: [address] [place] [address] Low Mean Corpuscular HGB Conc 30.6 g/dL 32.0-36.5 g/dL [facility]: [address] [place] [address] High Red Cell Distribution Width 15.4 % 1 1.5-14.5 % [facility]: [address] [place] [address] Normal Platelet Count, Automated 190 10 150 -450 10 [facility]: 0 [facility] Normal Neutrophils % 53.7 % 36.0-66.0 % [facility]: 0 [facility] Low Lymph % 23.1 % 24.0-44.0 % [facility]: 0 [facility] High Pickett % 5.3 % 0.0-5.0 % [facility]: [address] [place] [address] High Eos % 17.0 % 0.0-3.0 % [facility]: [address] [facility] Normal Baso % 0.4 % 0.0-1.0 % [facility]: [address] [facility] Normal Immature Granulocyte % 0.5 % 0-3.0 % [facility]: [address] [place] [address] Normal Nucleated Red Blood Cell % 0.0 % 0- 0 % [facility]: [address] [facility] Normal Neutrophils # 4.3 10 1.5-8.5 10 [facility] [address] [facility] Normal Lymph # 1.9 10 1.5-5.0 10 [facility]: 0 [facility] Normal Pickett # 0.4 10 0.0-0.8 10 [facility]: 0 [facility] High Eos # 1.4 10 0.0-0.5 10 [facility]: 0 [facility] Normal Baso # 0.0 10 0.0-0.2 10 [facility]: [address] [facility] 08/19/2020 BMP, Serum or Plasma Normal Glucose, Fastin g 79 mg/dL 70-100 mg/dL [facility]: 83 0 [facility] Low Blood Urea Nitrogen 4 mg/dL 7-18 mg/ dL [facility]: [address] [place] [address] Normal Creatinine for GFR 0.70 mg/dL 0.70-1 .30 mg/dL [facility]: 0 [facility] Normal Glomerular Filtration Rate > 60.0 >6 0 [facility]: [address] [facility] Normal Sodium Level 141 mEq/L 136-145 mEq/L [facility]: 0 [facility] Normal Potassium Serum 3.5 mEq/L 3.5-5.1 mE q/L [facility]: 0 [facility] Normal Chloride Level 104 mEq/L 98-107 mEq/ L [facility]: 0 [facility] Normal Carbon Dioxide Level 30 mEq/L 21-32 mEq/L [facility]: [address] [place] [address] Low Anion Gap 7 mEq/L 8-16 mEq/L [facility]: [address] [place] [address] Low Calcium Level 7.9 mg/dL 8.5-10.1 mg/ dL [facility]: [address] [place] [address] 08/19/2020 C Reactive Protein, QN, Serum or Plasma High C Reactive Protein Quantitativ 8.74 mg/dL 0.00-0.30 mg/dL [facility]: [address] [place] [address] 08/18/2020 CBC W/ Auto Diff Normal White Blood Count 8.2 10 4.0-10.0 10 [facility]: [address] [place] [address] Low Red Blood Count 4.11 10 4.30-6.10 10 [facility]: [address] [place] [address] Low Hemoglobin 10.1 g/dL 13.5-17.5 g/dL [facility]: [address] [place] [address] Low Hematocrit 33.5 % 42.0-52.0 % [facility]: [address] [place] [address] Normal Mean Corpuscular Volume 81.5 fL 80.0 -96.0 fL [facility]: [address] [place] [address] Low Mean Corpuscular Hemoglobin 24.6 pg 27.0-33.0 pg [facility]: [address] [place] [address] Low Mean Corpuscular HGB Conc 30.1 g/dL 32.0-36.5 g/dL [facility]: [address] [place] [address] High Red Cell Distribution Width 15.4 % 1 1.5-14.5 % [facility]: [address] [place] [address] Normal Platelet Count, Automated 170 10 150 -450 10 [facility]: [address] [place] [address] Normal Neutrophils % 60.3 % 36.0-66.0 % [facility]: [address] [place] [address] Low Lymph % 19.6 % 24.0-44.0 % [facility]: [address] [facility] Normal [place] % 4.9 % 0.0-5.0 % [facility]: [address] [facility] High Eos % 14.5 % 0.0-3.0 % [facility]: [address] [facility] Normal Baso % 0.2 % 0.0-1.0 % [facility]: [address] [facility] Normal Immature Granulocyte % 0.5 % 0-3.0 % [facility]: [address] [facility] Normal Nucleated Red Blood Cell % 0.0 % 0- 0 % [facility]: [address] [facility] Normal Neutrophils # 4.9 10 1.5-8.5 10 [facility]: [address] [facility] Normal Lymph # 1.6 10 1.5-5.0 10 [facility]: [address] [facility] Normal Pickett # 0.4 10 0.0-0.8 10 [facility]: [address] [facility] High Eos # 1.2 10 0.0-0.5 10 [facility]: 0 [facility] Normal Baso # 0.0 10 0.0-0.2 10 [facility]: [address] [facility] 08/18/2020 BMP, Serum or Plasma Low Glucose, Fastin g 69 mg/dL 70-100 mg/dL [facility]: 83 0 [facility] Low Blood Urea Nitrogen 3 mg/dL 7-18 mg/ dL [facility]: 0 [facility] Low Creatinine for GFR 0.65 mg/dL 0.70-1 .30 mg/dL [facility]: 0 [facility] Normal Glomerular Filtration Rate > 60.0 >6 0 [facility]: [address] [facility] Normal Sodium Level 141 mEq/L 136-145 mEq/L [facility]: 0 [facility] Low Potassium Serum 3.4 mEq/L 3.5-5.1 mE q/L [facility]: [address] [place] [address] Normal Chloride Level 106 mEq/L 98-107 mEq/ L [facility]: [address] [place] [address] Normal Carbon Dioxide Level 28 mEq/L 21-32 mEq/L [facility]: [address] [place] [address] Low Anion Gap 7 mEq/L 8-16 mEq/L [facility]: [address] [place] [address] Low Calcium Level 7.9 mg/dL 8.5-10.1 mg/ dL [facility]: [address] [place] [address] 08/18/2020 C Reactive Protein, QN, Serum or Plasma High C Reactive Protein Quantitativ 12.30 mg/dL 0.00-0.30 mg/dL [facility]: [address] [place] [address] 08/17/2020 CBC W/ Auto Diff Normal White Blood Count 9.8 10 4.0-10.0 10 [facility]: [address] [place] [address] Normal Red Blood Count 4.45 10 4.30-6.10 10 [facility]: [address] [place] [address] Low Hemoglobin 10.9 g/dL 13.5-17.5 g/dL [facility]: [address] [place] [address] Low Hematocrit 36.4 % 42.0-52.0 % [facility]: [address] [place] [address] Normal Mean Corpuscular Volume 81.8 fL 80.0 -96.0 fL [facility]: [address] [place] [address] Low Mean Corpuscular Hemoglobin 24.5 pg 27.0-33.0 pg [facility]: [address] [place] [address] Low Mean Corpuscular HGB Conc 29.9 g/dL 32.0-36.5 g/dL [facility]: [address] [place] [address] High Red Cell Distribution Width 15.6 % 1 1.5-14.5 % [facility]: [address] [place] [address] Normal Platelet Count, Automated 161 10 150 -450 10 [facility]: [address] [facility] High Neutrophils % 71.0 % 36.0-66.0 % [facility]: [address] [facility] Low Lymph % 12.5 % 24.0-44.0 % [facility]: [address] [facility] Normal [place]ett % 4.9 % 0.0-5.0 % Final [facility]: [address] [facility] High Eos % 10.7 % 0.0-3.0 % [facility]: [address] [facility] Normal Baso % 0.2 % 0.0-1.0 % [facility]: [address] [facility] Normal Immature Granulocyte % 0.7 % 0-3.0 % [facility]: [address] [facility] Normal Nucleated Red Blood Cell % 0.0 % 0- 0 % [facility]: [address] [facility] Normal Neutrophils # 6.9 10 1.5-8.5 10 [facility]: [address] [facility] Low Lymph # 1.2 10 1.5-5.0 10 [facility]: [address] [facility] Normal Pickett # 0.5 10 0.0-0.8 10 [facility]: [address] [facility] High Eos # 1.1 10 0.0-0.5 10 [facility]: [address] [facility] Normal Baso # 0.0 10 0.0-0.2 10 [facility]: [address] [facility] 08/17/2020 BMP, Serum or Plasma Normal Glucose, Fastin g 77 mg/dL 70-100 mg/dL [facility]: 83 0 [facility] Low Blood Urea Nitrogen 5 mg/dL 7-18 mg/ dL [facility]: [address] [facility] Normal Creatinine for GFR 0.77 mg/dL 0.70-1 .30 mg/dL [facility]: [address] [place] [address] Normal Glomerular Filtration Rate > 60.0 >6 0 [facility]: [address] [place] [address] Normal Sodium Level 141 mEq/L 136-145 mEq/L [facility]: 49 [place] [address] Normal Potassium Serum 3.9 mEq/L 3.5-5.1 mE q/L [facility]: [address] [place] [address] Normal Chloride Level 105 mEq/L 98-107 mEq/ L [facility]: [address] [place] [address] Normal Carbon Dioxide Level 27 mEq/L 21-32 mEq/L [facility]: [address] [place] [address] Normal Anion Gap 9 mEq/L 8-16 mEq/L [facility]: [address] [place] [address] Low Calcium Level 8.2 mg/dL 8.5-10.1 mg/ dL [facility]: [address] [place] [address] 08/17/2020 C Reactive Protein, QN, Serum or Plasma High C Reactive Protein Quantitativ 17.50 mg/dL 0.00-0.30 mg/dL [facility]: [address] [place] [address] 08/16/2020 CBC W/ Auto Diff High White Blood Count 10.5 10 4.0-10.0 10 [facility]: [address] [place] [address] Normal Red Blood Count 4.70 10 4.30-6.10 10 [facility]: [address] [place] [address] Low Hemoglobin 11.6 g/dL 13.5-17.5 g/dL [facility]: [address] [place] [address] Low Hematocrit 38.0 % 42.0-52.0 % [facility]: [address] [place] [address] Normal Mean Corpuscular Volume 80.9 fL 80.0 -96.0 fL [facility]: [address] [place] [address] Low Mean Corpuscular Hemoglobin 24.7 pg 27.0-33.0 pg [facility]: [address] [place] [address] Low Mean Corpuscular HGB Conc 30.5 g/dL 32.0-36.5 g/dL Final [facility]: [address] [place] [address] High Red Cell Distribution Width 15.2 % 1 1.5-14.5 % [facility]: [address] [place] [address] Normal Platelet Count, Automated 180 10 150 -450 10 [facility]: 0 [facility] High Neutrophils % 76.7 % 36.0-66.0 % [facility]: [address] [facility] Low Lymph % 11.4 % 24.0-44.0 % Final [facility]: [address] [facility] Normal Pickett % 3.8 % 0.0-5.0 % Final [facility]: [address] [place] [address] High Eos % 7.3 % 0.0-3.0 % [facility]: [address] [place] [address] Normal Baso % 0.1 % 0.0-1.0 % Final [facility]: [address] [place] [address] Normal Immature Granulocyte % 0.7 % 0-3.0 % [facility]: [address] [place] [address] Normal Nucleated Red Blood Cell % 0.0 % 0- 0 % [facility]: 0 [facility] Normal Neutrophils # 8.0 10 1.5-8.5 10 [facility]: 0 [facility] Low Lymph # 1.2 10 1.5-5.0 10 Final [facility]: 0 [facility] Normal Pickett # 0.4 10 0.0-0.8 10 [facility]: [address] [place] [address] High Eos # 0.8 10 0.0-0.5 10 [facility]: 0 [facility] Normal Baso # 0.0 10 0.0-0.2 10 [facility]: [address] [place] [address] 08/16/2020 BMP, Serum or Plasma Normal Glucose, Fastin g 73 mg/dL 70-100 mg/dL Final [facility]: 83 0 [facility] Normal Blood Urea Nitrogen 7 mg/dL 7-18 mg/ dL [facility]: [address] [facility] Normal Creatinine for GFR 0.95 mg/dL 0.70-1 .30 mg/dL [facility]: [address] [facility] Normal Glomerular Filtration Rate > 60.0 >6 0 [facility]: [address] [facility] Normal Sodium Level 142 mEq/L 136-145 mEq/L [facility]: [address] [facility] Normal Potassium Serum 4.0 mEq/L 3.5-5.1 mE q/L [facility]: 0 [facility] Normal Chloride Level 107 mEq/L 98-107 mEq/ L [facility]: 0 [facility] Normal Carbon Dioxide Level 25 mEq/L 21-32 mEq/L [facility]: [address] [facility] Normal Anion Gap 10 mEq/L 8-16 mEq/L [facility]: [address] [facility] Normal Calcium Level 8.5 mg/dL 8.5-10.1 mg/ dL [facility]: 0 [facility] 08/15/2020 CBC W/ Auto Diff Normal White Blood Count 8.4 10 4.0-10.0 10 [facility]: 0 [facility] Normal Red Blood Count 4.84 10 4.30-6.10 10 [facility]: 0 [facility] Low Hemoglobin 12.1 g/dL 13.5-17.5 g/dL [facility]: 0 [facility] Low Hematocrit 39.2 % 42.0-52.0 % [facility]: 0 [facility] Normal Mean Corpuscular Volume 81.0 fL 80.0 -96.0 fL [facility]: [address] [place] [address] Low Mean Corpuscular Hemoglobin 25.0 pg 27.0-33.0 pg [facility]: [address] [facility] Low Mean Corpuscular HGB Conc 30.9 g/dL 32.0-36.5 g/dL Final [facility]: 0 [facility] High Red Cell Distribution Width 14.9 % 1 1.5-14.5 % [facility]: [address] [facility] Normal Platelet Count, Automated 153 10 150 -450 10 [facility]: [address] [facility] Normal Neutrophils % 62.8 % 36.0-66.0 % [facility]: [address] [facility] Normal Lymph % 24.8 % 24.0-44.0 % Final [facility]: [address] [facility] Normal Pickett % 4.7 % 0.0-5.0 % Final [facility]: [address] [place] [address] High Eos % 6.8 % 0.0-3.0 % [facility]: [address] [place] [address] Normal Baso % 0.2 % 0.0-1.0 % Final [facility]: [address] [facility] Normal Immature Granulocyte % 0.7 % 0-3.0 % [facility]: [address] [place] [address] Normal Nucleated Red Blood Cell % 0.0 % 0- 0 % [facility]: [address] [facility] Normal Neutrophils # 5.2 10 1.5-8.5 10 [facility]: [address] [facility] Normal Lymph # 2.1 10 1.5-5.0 10 [facility]: 0 [facility] Normal Pickett # 0.4 10 0.0-0.8 10 [facility]: [address] [place] [address] High Eos # 0.6 10 0.0-0.5 10 [facility]: 0 [facility] Normal Baso # 0.0 10 0.0-0.2 10 [facility]: [address] [place] [address] 08/15/2020 BMP, Serum or Plasma Low Glucose, Fastin g 63 mg/dL 70-100 mg/dL [facility]: 83 0 [facility] Normal Blood Urea Nitrogen 7 mg/dL 7-18 mg/ dL [facility]: 0 [facility] Normal Creatinine for GFR 0.72 mg/dL 0.70-1 .30 mg/dL [facility]: [address] [facility] Normal Glomerular Filtration Rate > 60.0 >6 0 [facility]: [address] [facility] Normal Sodium Level 139 mEq/L 136-145 mEq/L [facility]: [address] [place] [address] Normal Potassium Serum 3.5 mEq/L 3.5-5.1 mE q/L [facility]: 0 [facility] Normal Chloride Level 103 mEq/L 98-107 mEq/ L [facility]: 0 [facility] Normal Carbon Dioxide Level 28 mEq/L 21-32 mEq/L [facility]: [address] [facility] Normal Anion Gap 8 mEq/L 8-16 mEq/L [facility]: [address] [facility] Normal Calcium Level 8.7 mg/dL 8.5-10.1 mg/ dL [facility]: [address] [facility] 08/14/2020 CBC W/ Auto Diff Normal White Blood Count 9.5 10 4.0-10.0 10 [facility]: 0 [facility] Normal Red Blood Count 4.92 10 4.30-6.10 10 [facility]: 0 [facility] Low Hemoglobin 12.2 g/dL 13.5-17.5 g/dL [facility]: 0 [facility] Low Hematocrit 40.1 % 42.0-52.0 % [facility]: 0 [facility] Normal Mean Corpuscular Volume 81.5 fL 80.0 -96.0 fL [facility]: [address] [place] [address] Low Mean Corpuscular Hemoglobin 24.8 pg 27.0-33.0 pg Final [facility]: [address] [facility] Low Mean Corpuscular HGB Conc 30.4 g/dL 32.0-36.5 g/dL Final [facility]: [address] [facility] High Red Cell Distribution Width 15.1 % 1 1.5-14.5 % [facility]: [address] [place] [address] Normal Platelet Count, Automated 154 10 150 -450 10 [facility]: [address] [facility] Normal Neutrophils % 60.3 % 36.0-66.0 % [facility]: [address] [facility] Normal Lymph % 26.1 % 24.0-44.0 % Final [facility]: [address] [facility] High [place] % 5.9 % 0.0-5.0 % Final [facility]: [address] [place] [address] Eos % 6.9 % 0.0-3.0 % Final [facility]: [address] [facility] Normal Baso % 0.3 % 0.0-1.0 % [facility]: 0 [facility] Normal Immature Granulocyte % 0.5 % 0-3.0 % [facility]: 0 [facility] Normal Nucleated Red Blood Cell % 0.0 % 0- 0 % [facility]: [address] [facility] Normal Neutrophils # 5.7 10 1.5-8.5 10 [facility]: [address] [facility] Normal Lymph # 2.5 10 1.5-5.0 10 [facility]: [address] [facility] Normal Pickett # 0.6 10 0.0-0.8 10 [facility]: 0 [facility] High Eos # 0.7 10 0.0-0.5 10 [facility]: [address] [facility] Normal Baso # 0.0 10 0.0-0.2 10 [facility]: [address] [facility] 08/14/2020 BMP, Serum or Plasma Low Glucose, Fastin g 67 mg/dL 70-100 mg/dL [facility]: 83 0 [facility] Normal Blood Urea Nitrogen 8 mg/dL 7-18 mg/ dL [facility]: 0 [facility] Normal Creatinine for GFR 0.83 mg/dL 0.70-1 .30 mg/dL [facility]: [address] [facility] Normal Glomerular Filtration Rate > 60.0 >6 0 [facility]: [address] [facility] Normal Sodium Level 141 mEq/L 136-145 mEq/L [facility]: 0 [facility] Normal Potassium Serum 3.5 mEq/L 3.5-5.1 mE q/L [facility]: 0 [facility] Normal Chloride Level 103 mEq/L 98-107 mEq/ L [facility]: [address] [facility] Normal Carbon Dioxide Level 28 mEq/L 21-32 mEq/L [facility]: [address] [facility] Normal Anion Gap 10 mEq/L 8-16 mEq/L [facility]: 0 [facility] Normal Calcium Level 8.7 mg/dL 8.5-10.1 mg/ dL [facility]: [address] [facility] 08/13/2020 Culture, Body Fluid PERITONEAL FLUID No obser vation recorded. [facility]: [address] 0 [facility] 08/13/2020 Culture, Body Fluid PERITONEAL FLUID No obser vation recorded. [facility]: 83 0 [facility] 08/13/2020 Culture, Body Fluid PERITONEAL FLUID No obser vation recorded. [facility]: 83 0 [facility] 08/12/2020 CBC W/ Auto Diff High White Blood Count 13.1 10 4.0-10.0 10 [facility]: [address] [facility] Normal Red Blood Count 5.82 10 4.30-6.10 10 [facility]: [address] [facility] Normal Hemoglobin 14.2 g/dL 13.5-17.5 g/dL [facility]: [address] [facility] Normal Hematocrit 46.5 % 42.0-52.0 % [facility]: [address] [facility] Low Mean Corpuscular Volume 79.9 fL 80.0 -96.0 fL [facility]: [address] [place] [address] Low Mean Corpuscular Hemoglobin 24.4 pg 27.0-33.0 pg [facility]: [address] [place] [address] Low Mean Corpuscular HGB Conc 30.5 g/dL 32.0-36.5 g/dL [facility]: [address] [place] [address] High Red Cell Distribution Width 15.6 % 1 1.5-14.5 % [facility]: [address] [place] [address] Normal Platelet Count, Automated 237 10 150 -450 10 [facility]: [address] [facility] High Neutrophils % 69.3 % 36.0-66.0 % [facility]: [address] [facility] Low Lymph % 19.3 % 24.0-44.0 % [facility]: [address] [facility] High [place] % 5.2 % 0.0-5.0 % [facility]: 0 [facility] High Eos % 5.4 % 0.0-3.0 % [facility]: [address] [facility] Normal Baso % 0.3 % 0.0-1.0 % [facility]: [address] [facility] Normal Immature Granulocyte % 0.5 % 0-3.0 % [facility]: 0 [facility] Normal Nucleated Red Blood Cell % 0.0 % 0- 0 % [facility]: 0 [facility] High Neutrophils # 9.1 10 1.5-8.5 10 [facility]: 0 [facility] Normal Lymph # 2.5 10 1.5-5.0 10 [facility]: [address] [facility] Normal Pickett # 0.7 10 0.0-0.8 10 [facility]: [address] [facility] High Eos # 0.7 10 0.0-0.5 10 [facility]: [address] [facility] Normal Baso # 0.0 10 0.0-0.2 10 [facility]: [address] [facility] 08/12/2020 Hepatic Function Panel, Serum High AST/SG OT 51 U/L 7-37 U/L [facility]: [address] [facility] High ALT/SGPT 119 U/L 12-78 U/L [facility]: [address] [facility] High Alkaline Phosphatase 189 U/L 45-117 U/L [facility]: [address] [facility] Normal Bilirubin,total 0.4 mg/dL 0.2-1.0 mg /dL [facility]: [address] [facility] Normal Bilirubin,direct 0.2 mg/dL 0.0-0.2 m g/dL [facility]: 0 [facility] Normal Total Protein 7.9 gm/dL 6.4-8.2 gm/d L [facility]: [address] [facility] Normal Albumin 3.6 gm/dL 3.2-5.2 gm/dL Linda l [facility]: [address] [facility] Normal Albumin/globulin Ratio 0.8 [facility]: [address] [facility] 08/12/2020 BMP, Serum or Plasma Normal Glucose, Fastin g 96 mg/dL 70-100 mg/dL [facility]: 83 0 [facility] Normal Blood Urea Nitrogen 14 mg/dL 7-18 mg /dL [facility]: 0 [facility] Normal Creatinine for GFR 1.05 mg/dL 0.70-1 .30 mg/dL [facility]: [address] [facility] Normal Glomerular Filtration Rate > 60.0 >6 0 [facility]: [address] [facility] Normal Sodium Level 139 mEq/L 136-145 mEq/L [facility]: 0 [facility] Normal Potassium Serum 4.1 mEq/L 3.5-5.1 mE q/L [facility]: [address] [facility] Normal Chloride Level 100 mEq/L 98-107 mEq/ L [facility]: [address] [facility] Normal Carbon Dioxide Level 31 mEq/L 21-32 mEq/L [facility]: [address] [facility] Normal Anion Gap 8 mEq/L 8-16 mEq/L [facility]: [address] [place] [address] Normal Calcium Level 9.4 mg/dL 8.5-10.1 mg/ dL [facility]: 0 [facility] 08/12/2020 Lipase, Serum or Plasma Normal Lipase 85 U/L 7 3-393 U/L [facility]: 0 [facility] 08/12/2020 Cardiovascular Assessment Panel, Serum Normal CPK Creatine Phosphokinase 121 U/L 39-308 U/L [facility]: [address] [place] [address] Normal CK-mb Value Mass 2.0 NG/mL <3.6 NG/m L [facility]: [address] [place] [address] Normal mb/CK Relative Index 1.65 < or =4 [facility]: [address] [place] [address] Normal Troponin I < 0.02 NG/mL < 0.10 NG/mL [facility]: [address] [facility] 08/12/2020 Influenza A/B RSV Covid Amp Normal Influenza a Amplification negative negative [facility]: [address] [facility] Normal Influenza B Amplification negative n egative [facility]: [address] [facility] Normal RSV Amplification negative negative [facility]: [address] [facility] Normal Sars Covid-19 Amplification negative negative [facility]: [address] [place] [address] 08/04/2020 CBC W/ Auto Diff High White Blood Count 12.1 10 4.0-10.0 10 [facility]: [address] [place] [address] Normal Red Blood Count 4.98 10 4.30-6.10 10 [facility]: [address] [place] [address] Low Hemoglobin 12.5 g/dL 13.5-17.5 g/dL [facility]: [address] [place] [address] Low Hematocrit 40.2 % 42.0-52.0 % [facility]: [address] [place] [address] Normal Mean Corpuscular Volume 80.7 fL 80.0 -96.0 fL [facility]: [address] [place] [address] Low Mean Corpuscular Hemoglobin 25.1 pg 27.0-33.0 pg [facility]: [address] [place] [address] Low Mean Corpuscular HGB Conc 31.1 g/dL 32.0-36.5 g/dL [facility]: [address] [place] [address] High Red Cell Distribution Width 15.5 % 1 1.5-14.5 % [facility]: [address] [place] [address] Normal Platelet Count, Automated 184 10 150 -450 10 [facility]: [address] [place] [address] High Neutrophils % 78.9 % 36.0-66.0 % Fin [facility]: [address] [place] [address] Low Lymph % 15.2 % 24.0-44.0 % Final [facility]: [address] [place] [address] Normal [place] % 4.0 % 0.0-5.0 % [facility]: [address] [place] [address] Normal Eos % 1.4 % 0.0-3.0 % [facility]: [address] [place] [address] Normal Baso % 0.2 % 0.0-1.0 % [facility]: [address] [place] [address] Normal Immature Granulocyte % 0.3 % 0-3.0 % [facility]: [address] [place], [place] [address] Normal Nucleated Red Blood Cell % 0.0 % 0- 0 % [facility]: [address] [facility] High Neutrophils # 9.5 10 1.5-8.5 10 [facility]: [address] [facility] Normal Lymph # 1.8 10 1.5-5.0 10 [facility]: [address] [facility] Normal Pickett # 0.5 10 0.0-0.8 10 [facility]: [address] [facility] Normal Eos # 0.2 10 0.0-0.5 10 [facility]: [address] [facility] Normal Baso # 0.0 10 0.0-0.2 10 [facility]: 0 [facility] 08/04/2020 BMP, Serum or Plasma High Glucose, Fastin g 105 mg/dL 70-100 mg/dL [facility]: [address] 0 [facility] Normal Blood Urea Nitrogen 12 mg/dL 7-18 mg /dL [facility]: 0 [facility] Normal Creatinine for GFR 0.94 mg/dL 0.70-1 .30 mg/dL [facility]: 0 [facility] Normal Glomerular Filtration Rate > 60.0 >6 0 [facility]: 0 [facility] Normal Sodium Level 140 mEq/L 136-145 mEq/L [facility]: 0 [facility] Normal Potassium Serum 4.1 mEq/L 3.5-5.1 mE q/L [facility]: [address] [facility] Normal Chloride Level 104 mEq/L 98-107 mEq/ L [facility]: 0 [facility] Normal Carbon Dioxide Level 30 mEq/L 21-32 mEq/L [facility] 0 [facility] Low Anion Gap 6 mEq/L 8-16 mEq/L [facility]: 0 [facility] Normal Calcium Level 8.9 mg/dL 8.5-10.1 mg/ dL Final [facility]: [address] [facility] 08/03/[address] gram St ABDOMEN No observation recorded. [facility]: [address] [facility] 08/03/2020 Culture, Anaerobic ABDOMEN No observation record ed. [facility]: [address] [facility] 08/03/[address] ABDOMEN No observation recorded. [facility]: [address] [facility] 08/03/[address] gram St ABDOMEN No observation recorded. [facility]: [address] [facility] 07/26/2020 CBC W/ Auto Diff Blood venous Normal White Blood C ount 7.3 10 4.0-10.0 10 Final [facility]: 83 0 [facility] Blood venous Normal Red Blood Count 5.29 10 4.30- 6.10 10 [facility]: [address] [facility] Blood venous Low Hemoglobin 13.2 g/dL 13.5-17. 5 g/dL Final [facility]: [address] [facility] Blood venous Normal Hematocrit 43.3 % 42.0-52.0 % [facility]: [address] [facility] Blood venous Normal Mean Corpuscular Volume 81.9 fL 80.0-96.0 fL [facility]: 0 [facility] Blood venous Low Mean Corpuscular Hemoglob in 25.0 pg 27.0-33.0 pg [facility]: [address] [facility] Blood venous Low Mean Corpuscular HGB Conc 30.5 g/dL 32.0-36.5 g/dL [facility]: [address] [facility] Blood venous High Red Cell Distribution Width 1 5.7 % 11.5-14.5 % [facility]: [address] [facility] Blood venous Normal Platelet Count, Automated 170 10 150-450 10 [facility]: [address] [facility] Blood venous High Neutrophils % 66.1 % 36.0-66. 0 % [facility]: [address] [facility] Blood venous Low Lymph % 23.8 % 24.0-44.0 % Fi [facility]: [address] [facility] Blood venous Normal [place] % 4.1 % 0.0-5.0 % [facility]: [address] [place] [address] Blood venous High Eos % 5.2 % 0.0-3.0 % [facility]: [address] [place] [address] Blood venous Normal Baso % 0.4 % 0.0-1.0 % [facility]: [address] [place] [address] Blood venous Normal Immature Granulocyte % 0.4 % 0-3.0 % [facility]: [address] [place] [address] Blood venous Normal Nucleated Red Blood Cell % 0. 0 % 0-0 % [facility]: [address] [place] [address] Blood venous Normal Neutrophils # 4.8 10 1.5-8.5 10 [facility]: [address] [place] [address] Blood venous Normal Lymph # 1.7 10 1.5-5.0 10 [facility]: [address] [place] [address] Blood venous Normal Pickett # 0.3 10 0.0-0.8 10 [facility]: 0 [facility] Blood venous Normal Eos # 0.4 10 0.0-0.5 10 [facility]: [address] [place] [address] Blood venous Normal Baso # 0.0 10 0.0-0.2 10 [facility]: [address] [place] [address] 07/26/2020 Iron, Serum Blood venous Low Iron (Fe) 41 ug/d L 65-175 ug/dL [facility]: [address] [place] [address] 07/26/2020 Electrocardiogram Rate & Rhythm [facility]: [address] [facility] Qrs [facility]: [address] [facility] AL Interval [facility]: [address] [facility] QRS Duration [facility] [place] [facility]: [address] [facility] QT Interval [facility] Medical: 238 [facility] 06/05/2020 CBC W/ Auto Diff Normal White Blood Count 9.9 10 4.0-10.0 10 [facility]: [address] [facility] Normal Red Blood Count 5.01 10 4.30-6.10 10 [facility]: [address] [facility] Low Hemoglobin 12.4 g/dL 13.5-17.5 g/dL Final [facility]: [address] [place] [address] Low Hematocrit 40.5 % 42.0-52.0 % [facility]: [address] [place] [address] Normal Mean Corpuscular Volume 80.8 fL 80.0 -96.0 fL [facility]: [address] [place] [address] Low Mean Corpuscular Hemoglobin 24.8 pg 27.0-33.0 pg [facility]: [address] [place] [address] Low Mean Corpuscular HGB Conc 30.6 g/dL 32.0-36.5 g/dL [facility]: [address] [place] [address] High Red Cell Distribution Width 15.3 % 1 1.5-14.5 % [facility]: 0 [facility] Normal Platelet Count, Automated 168 10 150 -450 10 [facility]: 0 [facility] High Neutrophils % 68.0 % 36.0-66.0 % Fin [facility]: [address] [facility] Low Lymph % 23.4 % 24.0-44.0 % [facility]: [address] [facility] High [place] % 5.1 % 0.0-5.0 % Final [facility]: [address] [facility] Normal Eos % 2.8 % 0.0-3.0 % [facility]: 0 [facility] Normal Baso % 0.3 % 0.0-1.0 % [facility]: [address] [facility] Normal Immature Granulocyte % 0.4 % 0-3.0 % [facility]: [address] [facility] Normal Nucleated Red Blood Cell % 0.0 % 0- 0 % [facility]: [address] [facility] Normal Neutrophils # 6.8 10 1.5-8.5 10 [facility]: [address] [facility] Normal Lymph # 2.3 10 1.5-5.0 10 [facility]: [address] [facility] Normal Pickett # 0.5 10 0.0-0.8 10 [facility]: [address] [facility] Normal Eos # 0.3 10 0.0-0.5 10 [facility]: [address] [facility] Normal Baso # 0.0 10 0.0-0.2 10 [facility]: [address] [facility] 06/05/2020 Hepatic Function Panel, Serum Normal AST/SG OT 21 U/L 7-37 U/L [facility]: [address] [facility] Normal ALT/SGPT 29 U/L 12-78 U/L [facility]: [address] [facility] High Alkaline Phosphatase 132 U/L 45-117 U/L [facility]: 0 [facility] Normal Bilirubin,total 0.3 mg/dL 0.2-1.0 mg /dL [facility]: [address] [place] [address] Normal Bilirubin,direct < 0.1 mg/dL 0.0-0.2 mg/dL [facility]: [address] [facility] Normal Total Protein 7.5 gm/dL 6.4-8.2 gm/d L [facility]: 0 [facility] Normal Albumin 3.5 gm/dL 3.2-5.2 gm/dL [facility]: 0 [facility] Normal Albumin/globulin Ratio 0.9 [facility]: 0 [facility] 06/05/2020 BMP, Serum or Plasma Normal Glucose, Fastin g 84 mg/dL 70-100 mg/dL [facility]: 83 0 [facility] Normal Blood Urea Nitrogen 11 mg/dL 7-18 mg /dL [facility]: [address] [facility] Normal Creatinine for GFR 0.96 mg/dL 0.70-1 .30 mg/dL [facility]: [address] [facility] Normal Glomerular Filtration Rate > 60.0 >6 0 [facility]: [address] [facility] Normal Sodium Level 140 mEq/L 136-145 mEq/L [facility]: [address] [facility] Normal Potassium Serum 4.2 mEq/L 3.5-5.1 mE q/L [facility]: [address] [facility] Normal Chloride Level 103 mEq/L 98-107 mEq/ L [facility]: [address] [facility] Normal Carbon Dioxide Level 30 mEq/L 21-32 mEq/L [facility]: [address] [facility] Low Anion Gap 7 mEq/L 8-16 mEq/L [facility]: [address] [facility] Normal Calcium Level 8.8 mg/dL 8.5-10.1 mg/ dL [facility]: 0 [facility] 06/05/2020 Lipase, Serum or Plasma Normal Lipase 90 U/L 7 3-393 U/L [facility]: 0 [facility] 05/30/2020 Abscess Culture and gram Stain ABDOMEN No observation recorded. [facility]: 0 [facility] 05/30/2020 Abscess Culture and gram Stain ABDOMEN No observation recorded. [facility]: 0 [facility] 05/30/2020 Culture, Anaerobic ABSCESS FLUID No observation recorded. [facility]: 0 [facility] 05/16/2020 CBC W/ Auto Diff Normal White Blood Count 7.6 10 4.0-10.0 10 [facility]: [address] [facility] Normal Red Blood Count 5.36 10 4.30-6.10 10 [facility]: [address] [facility] Low Hemoglobin 13.4 g/dL 13.5-17.5 g/dL [facility]: [address] [facility] Normal Hematocrit 43.5 % 42.0-52.0 % [facility]: [address] [facility] Normal Mean Corpuscular Volume 81.2 fL 80.0 -96.0 fL [facility]: [address] [place] [address] Low Mean Corpuscular Hemoglobin 25.0 pg 27.0-33.0 pg [facility]: [address] [facility] Low Mean Corpuscular HGB Conc 30.8 g/dL 32.0-36.5 g/dL [facility]: [address] [place] [address] High Red Cell Distribution Width 15.2 % 1 1.5-14.5 % [facility]: 0 [facility] Normal Platelet Count, Automated 183 10 150 -450 10 [facility]: [address] [facility] High Neutrophils % 66.5 % 36.0-66.0 % [facility]: [address] [facility] Normal Lymph % 24.6 % 24.0-44.0 % [facility]: [address] [facility] Normal [place] % 4.2 % 0.0-5.0 % [facility]: [address] [facility] High Eos % 3.8 % 0.0-3.0 % [facility]: [address] [facility] Normal Baso % 0.4 % 0.0-1.0 % [facility]: [address] [facility] Normal Immature Granulocyte % 0.5 % 0-3.0 % [facility]: [address] [facility] Normal Nucleated Red Blood Cell % 0.0 % 0- 0 % [facility]: [address] [facility] Normal Neutrophils # 5.1 10 1.5-8.5 10 [facility]: [address] [facility] Normal Lymph # 1.9 10 1.5-5.0 10 [facility]: [address] [facility] Normal [place]ett # 0.3 10 0.0-0.8 10 [facility]: [address] [facility] Normal Eos # 0.3 10 0.0-0.5 10 [facility]: [address] [facility] Normal Baso # 0.0 10 0.0-0.2 10 [facility]: [address] [facility] 05/16/2020 Hepatic Function Panel, Serum Normal AST/SG OT 18 U/L 7-37 U/L [facility]: [address] [facility] Normal ALT/SGPT 29 U/L 12-78 U/L [facility]: 0 [facility] High Alkaline Phosphatase 127 U/L 45-117 U/L [facility]: 0 [facility] Normal Bilirubin,total 0.2 mg/dL 0.2-1.0 mg /dL [facility]: 0 [facility] Normal Bilirubin,direct < 0.1 mg/dL 0.0-0.2 mg/dL [facility]: 0 [facility] Normal Total Protein 7.8 gm/dL 6.4-8.2 gm/d L [facility]: 0 [facility] Normal Albumin 3.5 gm/dL 3.2-5.2 gm/dL Linda l [facility]: 0 [facility] Normal Albumin/globulin Ratio 0.8 [facility]: 0 [facility] 05/16/2020 Lipase, Serum or Plasma Normal Lipase 76 U/L 7 3-393 U/L [facility]: 0 [facility] 05/16/2020 Lactic Acid, Serum or Plasma Normal Lactic Acid Sepsis Protocol 0.7 mmol/L 0.4-2.0 mmol/L [facility] Center: [address] [place] [address] 05/16/2020 Istat Chem8+ Panel Normal Istat HCT 43.0 % 38. 0-51.0 % [facility]: [address] [facility] Normal Istat Glucose 87 mg/dL 70-105 mg/dL [facility]: [address] [facility] Normal Istat Sodium 139 mEq/L 136-145 mEq/L [facility]: [address] [facility] Normal Istat Potassium 4.4 mEq/L 3.5-5.1 mE q/L [facility]: [address] [facility] Normal Istat Ca++ 4.8 mg/dL 4.5-5.3 mg/dL [facility]: [address] [facility] Normal Istat Chloride 100 mEq/L 98-109 mEq/ L [facility]: [address] [facility] High Istat CO2 29.0 mm/L 23.0-27.0 mm/L [facility]: [address] [facility] Normal Istat BUN 12 mg/dL 8-26 mg/dL [facility]: [address] [facility] Normal Istat Creatinine 1.0 mg/dL 0.6-1.3 m g/dL [facility]: [address] [facility] Past Encounters 04/25/2021 Gastroesophageal Reflux Disease without Esophagitis; Smoker; Anemia; Body Mass Index 30+ - Obesity David Valencia MD: [address] [place] [phone], Ph. 03/30/2021 David Valencia MD: [address] [place] [address], Ph. 01/18/2021 Anemia; Body Mass Index 30+ - Obesity; Obstructive Sleep Apnea Syndrome; Gastroesophageal Reflux Disease without Esophagitis David Valencia MD: [address] [place] [address], Ph. 09/27/2020 Anemia; Body Mass Index 30+ - Obesity; Smoker David Valencia MD: [address] [place] [address], Ph. 07/26/2020 Anemia; Umbilical Hernia; Preoperative Cardiovascular Examination David Valencia MD: [address] [place] [phone], Ph. Social History Tobacco Smoking Status Current Every Day Smoker Vaccine List Vaccine Type influenza, seasonal, injectable 06/14/20180.5 mL Plan of Care Reminders Provider Appointments None recorded. Lab None recorded. Referral None recorded. Procedures None recorded. Surgeries None recorded. Imaging None recorded. Vitals 04/25/2021 12:40PM ESTABLISHED [id number] Height Weight BMI Blood Pressure 65 in 365 lbs 4 oz 60.8 kg/m2 127/85 mm[Hg] 01/18/2021 09:20AM ESTABLISHED [id number] Height Weight BMI Blood Pressure 65 in 360 lbs 6 oz 60 kg/m2 124/80 mm[Hg] 09/27/2020 09:00AM ESTABLISHED [id number] Height Weight BMI Blood Pressure 65 in 350 lbs 16 oz 58.4 kg/m2 113/78 mm[Hg] 07/26/2020 09:00AM MEDICAL CLEARANCE Height Weight BMI Blood Pressure 65 in 374 lbs 2 oz 62.3 kg/m2 132/88 mm[Hg] 01/10/2020 Height Weight BMI Blood Pressure 65 in 380 lbs 63.46 kg/m2 136/88 mm[Hg] 12/02/2019 Height Weight BMI Blood Pressure 65 in 380 lbs 3.2 oz 63.50 kg/m2 140/87 mm[Hg ] 04/14/2019 Blood Pressure 110/77 mm[Hg] 04/05/2019 Height Weight BMI Blood Pressure 65 in 351 lbs 58.62 kg/m2 156/99 mm[Hg] 03/16/2019 Height Weight BMI Blood Pressure 65 in 351 lbs 58.62 kg/m2 141/98 mm[Hg] 12/09/2018 Height Weight BMI Blood Pressure 65 in 367 lbs 61.29 kg/m2 137/90 mm[Hg] 08/05/2018 Height Weight BMI Blood Pressure 65 in 365 lbs 60.96 kg/m2 137/87 mm[Hg]
--- OUTSIDE RECORDS SUMMARY | 2021-05-01 10:48 | CCD | Continuity of Care Document ---
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 AUTM [phone] AUTM Unavailable Adolphio AUTM [phone] Problems Active Problems Provider Date Essential hypertension [...] lb BMI (Body Mass Index) 60.2 kg/m2 [place] Body Weight 136 lb Weight 164.203 kg BSA (Body Surface Area) 2.55 m2 11/29/2020 8:34am BP Systolic 134 mmHg BP Diastolic 86 mmHg Heart Rate 66 /min Height 65 inches 5'5" Weight 356.25 lb BMI (Body Mass Index) 59.3 kg/m2 [place] Body Weight 136 lb Weight 161.595 kg BSA (Body Surface Area) 2.53 m2 Results Test Acquired Date Facility Test Result H/L Range Note Complete Blood Count 08/23/2020 [facility] Main Lab [address] [place], [place] [id number] [phone] White Blood Count 7.1 10 Normal 4.0-10.0 [...] % Normal 0-0 Comprehensive Metabolic Profil 08/23/2020 [facility] Main Lab [address] [place] [address] [phone] Glucose, Fasting 82 mg/dL Normal 70-100 Blood [...] Little GFR Left ESRD GFR <15 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 Procedures Description No Information Available Medical Devices Description No Information Available Encounters Type Date Location Provider Dx Diagnosis Office Visit 11/29/2020 8:45a [facility] Gabo Yusuf MD K43.1 Incisional hernia with gangr nakia K56.609 Unsp intestnl obst, unsp as to partial versus complete obst E66.01 Morbid (severe) obesity due to excess calories Z48.815 Encntr [facility] Visit 11/06/2020 9:30a [facility] Gabo Yusuf MD K56.609 Unsp intestnl obst, unsp as to partial versus complete obst K43.1 Incisional hernia with gangr nakia E66.01 Morbid (severe) obesity due to excess calories Z48.815 Encntr for surgical aftcr fo llowing surgery on the stv sys Office Visit 10/04/2020 10:45a [facility] Gabo Yusuf MD K56.609 Unsp intestnl obst, unsp as to partial versus complete obst Z48.815 Encntr for surgical aftcr fo llowing surgery on the [facility] sys Office Visit 09/11/2020 9:45a [facility] Gabo Yusuf MD K56.609 Unsp intestnl obst, unsp as to partial versus complete obst K43.1 Incisional hernia with gangr nakia E66.01 Morbid (severe) obesity due to excess calories Z48.815 Encntr for surgical aftcr fo llowing surgery on the dgstv sys Office Visit 08/29/2020 10:00a [facility] Romeo Rogers ett, FINISH SAW OPERATOR R10.84 Generalized abdominal pain Z48.89 Encounter for other specifie d surgical aftercare K56.609 Unsp intestnl obst, unsp as to partial versus complete obst K42.0 Umbilical hernia with obstru ction, without gangrene Office Visit 08/23/2020 9:00a [facility] Romeo Rogers ett, FINISH SAW OPERATOR R10.84 Generalized abdominal pain K66.8 Other specified [...] 05/15/2021 11:15 am - SRINI Bowers at [facility] * 05/01/2021 1:00 pm - William Yusuf MD at [facility] Functional Status Description No Information Available Mental Status Description No Information Available Referrals Refer to Dr Reason for Referral Status Appt Date Nancy Moreno F.N.P. KEN Created [facility] [address] [place], [place] [address] [phone] Yamil Ramos M.D. anemia, D64.9 Scheduled 11/05/2020 [facility], Gastroenterology [address] [facility], [address] [place] [address] [phone] William Yusuf MD UNSPECIFIED INTESTINAL OBSTRUCTIONS. K56.609 Scheduled 11/06/[address] [place] [address] [phone]
--- OUTSIDE RECORDS SUMMARY | 2021-05-01 10:50 | CCD ---
Author Author [facility] Organization [facility] Address Unknown Phone Unavailable Care Team Providers Care Case Packer And Sealer Name Role Phone Cynthia Valencia MD Unavailable Unavailable Cynthia Valencia [...] Unavailable Cynthia Valencia MD Unavailable Unavailable Cynthia Vaelncia MD Unavailable Unavailable Cynthia Valencia MD Unavailable Unavailable Cynthia Valencia MD Unavailable Unavailable Heath, Olimpia Romeo AXMINSTER RUG SETTER Unavailable Unavailable [facility], Olimpia Romeo AXMINSTER RUG SETTER Unavailable Unavailable [facility], Olimpia Romeo AXMINSTER RUG SETTER Unavailable Unavailable [facility], Olimpia Romeo AXMINSTER RUG SETTER Unavailable Unavailable [facility], Olimpia Romeo AXMINSTER RUG SETTER Unavailable Unavailable Heath, Olimpia Romeo AXMINSTER RUG SETTER Unavailable Unavailable [facility], Olimpia Romeo AXMINSTER RUG SETTER Unavailable Unavailable Heath, Olimpia Romeo AXMINSTER RUG SETTER Unavailable Unavailable Heath, Olimpia Romeo AXMINSTER RUG SETTER Unavailable Unavailable [facility], Olimpia Romeo AXMINSTER RUG SETTER Unavailable Unavailable [facility], Olimpia Romeo AXMINSTER RUG SETTER Unavailable Unavailable Heath, Olimpia Romeo AXMINSTER RUG SETTER Unavailable Unavailable Heath, Olimpia Romeo AXMINSTER RUG SETTER Unavailable Unavailable Heath, Olimpia Romeo AXMINSTER RUG SETTER Unavailable Unavailable Ermelinda REZA MD Unavailable Unavailable [...] Unavailable Unavailable Ermelinda REZA MD Unavailable Unavailable BARAYUGA, Ermelinda VILLARREAL MD Unavailable Unavailable BARAYUGA, Ermelinda VILLARREAL MD Unavailable Unavailable BARAYUGA, Ermelinda VILLARREAL MD Unavailable Unavailable BARAYUGA, Ermelinda VILLARREAL MD Unavailable Unavailable BARAYUGA, Ermelinda VILLARREAL MD Unavailable Unavailable BARAYUGA, Ermelinda VILLARREAL MD Unavailable Unavailable BARAYUGA, Ermelinda VILLARREAL MD Unavailable Unavailable BARAYUGA, Ermelinda VILLARREAL MD Unavailable Unavailable BARAYUGA, Ermelinda VILLARREAL MD Unavailable Unavailable BARAYUGA, Ermelinda VILLARREAL MD Unavailable Unavailable BARAYUGA, B CHERELLE BLANKENSHIP Unavailable Unavailable BARAYUGA, Ermelinda VILLARREAL MD Unavailable Unavailable BARAYUGA, B CHERELLE BLANKENSHIP Unavailable Unavailable BARAYUGA, B CHERELLE BLANKENSHIP Unavailable Unavailable LETTIERE, A COURTNEY PA Unavailable [...] Unavailable LETTIERE, A COURTNEY PA Unavailable Unavailable Cynthia Valencia MD Unavailable Unavailable [...] Unavailable Unavailable Cynthia Valencia MD Unavailable Unavailable MAJAK, R POLO DPM Unavailable [...] R POLO DPM Unavailable Unavailable MAJAK, R POOL DPM Unavailable Unavailable MAJAK, R POLO DPM Unavailable Unavailable MAJAK, R POLO DPM Unavailable Unavailable MAJAK, R POLO DPM Unavailable Unavailable MAJAK, R POLO DPM Unavailable Unavailable MAJAK, R POLO DPM Unavailable Unavailable Re-disclosure Warning The records that [...] is protected by Article 27-F of the [facility] Public Health law. If you continue you may have access to information: Regarding HIV / AIDS; Provided by facilities licensed or operated by the [facility] Office of Mental Health; or Provided by the [facility] Office for People With Developmental Disabilities. If such information is present, then the following [facility] mandated warning applies: This information has been [...] law may result in a fine or residential sentence or both. A general authorization for the release of medical or other information is NOT sufficient authorization for further disc losure. Allergies and Adverse Reactions Type Description Substance Reaction Status Data Source(s ) Allergy to substance Allergy to substance Allergy to substance [place] ([facility]) Family History Family Member Name Family Member Gender Family Member Status Date o f Status Description Data Source(s) Unknown Male Problem [facility] ([facility]) Unknown Male Problem [facility] ([facility]) Unknown Male Problem [facility] ([facility] ) () Encounters Encounter Providers Location Date Indications Data Source(s ) David Valencia MD: [address] [place] [phone], Ph. Attender: David Valencia MD [facility] 04/25/2021 12:00:00 AM EDT [facility] ([facility]) David Valencia MD: [address] [place] [phone], Ph. Attender: David Valencia MD [facility] 03/30/2021 12:00:00 AM EDT [facility] ([facility]) Outpatient Attender: CHERELLE [place] [place] 02/14/2021 09:45:00 AM EDT [facility] ([facility]) aDvid Valencia MD: [address] [place] [phone], Ph. Attender: David Valencia MD [facility] 01/18/2021 12:00:00 AM EDT [facility] ([facility]) David Valencia MD: [address] [place] [phone], Ph. Attender: David Valencia MD [facility] 01/18/2021 12:00:00 AM EDT [facility] ([facility]) Office Visit Attender: CHERELLE REZA MD [place] [place] 11/29/2020 08:45:00 AM EDT [facility] ([facility]) Office Visit Attender: CHERELLE REZA MD [place]/ [place] 11/06/2020 09:30:00 AM EDT [facility] ([facility]) Office Visit Attender: CHERELLE REZA MD [place]/ [place] 10/04/2020 10:45:00 AM EDT [facility] ([facility]) David Valencia MD: [address] [place] [phone], Ph. Attender: David Valencia MD [facility] 09/27/2020 12:00:00 AM EDT [facility] ([facility]) David Valencia MD: [address] [place] [phone], Ph. Attender: David Valencia MD [facility] 09/27/2020 12:00:00 AM EDT [facility] ([facility]) David Valencia MD: [address] [place] [phone], Ph. Attender: David Valencia MD [facility] 09/27/2020 12:00:00 AM EDT [facility] ([facility]) Office Visit Attender: CHERELLE REZA MD [place]/ [place] 09/11/2020 08:45:00 AM EST [facility] ([facility]) Office Visit Attender: Romeo INGRAM [place] [facility] 08/29/2020 09:00:00 AM EST [facility] ([facility]) Office Visit Attender: Romeo INGRAM [place] [facility] 08/23/2020 08:00:00 AM EST [facility] ([facility]) Office Visit Attender: CHERELLE REZA MD [place]/ [place] 08/09/2020 12:15:00 PM EST [facility] ([facility]) David Valencia MD: [address] [place] [phone], Ph. Attender: David Valencia MD [facility] 07/26/2020 12:00:00 AM EST [facility] ([facility]) David Valencia MD: [address] [place] [phone], Ph. Attender: David Valencia MD [facility] 07/26/2020 12:00:00 AM EST [facility] ([facility]) David Valencia MD: [address] [place] [phone], Ph. Attender: David Valencia MD [facility] 07/26/2020 12:00:00 AM EST [facility] ([facility]) David Valencia MD: [address] [place] [phone], Ph. Attender: David Valencia MD [facility] 07/26/2020 12:00:00 AM EST [facility] ([facility]) Outpatient Attender: POLO BRAY DPM [place] [facility] 06/12 12:00:00 PM EST [facility] ([facility] Outpatient Attender: CHERELLE [place]/ [place] 06/26/2020 08:15:00 AM EST [facility] ([facility]) Outpatient Attender: Romeo INGRAM [place] [facility] 06/13/2020 09:00:00 AM EST [facility] ([facility]) Outpatient Attender: CHERELLE [place]/ [place] 06/05/2020 08:45:00 AM EST [facility] ([facility]) Outpatient Attender: CHERELLE [place]/ [place] 05/22/2020 02:15:00 PM EST [facility] ([facility]) Outpatient Attender: POLO BRAY DPM [place] [facility] 04/12 03:00:00 PM EDT [facility] ([facility] Outpatient Attender: CHERELLE [place]/ [place] 04/17/2020 10:30:00 AM EDT [facility] ([facility]) Outpatient Attender: David Valencia MD 04/06/2020 06:10:00 PM EDT [facility] Outpatient Attender: COURTNEY moreno 03/30/2020 01:10:00 PM EDT [facility] ([facility]) Outpatient Attender: David CORTEZ 03/23/2020 10:40:00 AM EDT [facility] Office Visit Attender: Romeo INGRAM [place] [facility] 03/13/2020 10:30:00 AM EDT [facility] ([facility]) Immunizations Vaccine Date Status Description Data Source(s) COVID-19 VACCINE [place] 12/10/2020 12:00:00 AM EDT completed [facility] Vaccine Series Complete: YESThis Data wa s Submitted to [facility] Via [employer]. Medications Medication Brand Name Start Date Product Form Dose Route Admi nistrative Instructions Pharmacy Instructions Status Indications Reaction Description Data Source(s) pantoprazole 40 MG Delayed Release Oral Tablet Pantoprazole Sodium 11/29/2020 12:00:00 AM EDT active M [facility] ([facility], ) Naproxen 500 MG Delayed Release Oral Tablet Naproxen 09/11 12:00:00 AM EDT active [facility] ( [facility]) pantoprazole 40 MG Delayed Release Oral Tablet [Protonix] Pr otonix 09/11/2020 12:00:00 AM EST ORAL completed [facility] ([facility]) tramadol hydrochloride 50 MG Oral Tablet Tramadol HCL 08/29/2020 12:00:00 AM EST active [facility] ([facility]) Ketorolac Tromethamine 10 MG Oral Tablet Ketorolac Trometham ine 08/20/2020 12:00:00 AM EST ORAL active M [facility] ([facility]) Ondansetron 4 MG Oral Tablet [Zofran] Zofran 08/09/2020 12:00:00 AM EST active [facility] ([facility]) Acetaminophen 325 MG / Oxycodone Hydrochloride 5 MG Or al Tablet [Percocet] Percocet 08/09/2020 12:00:00 AM EST ORAL completed [facility] ([facility]) ammonium lactate 120 MG/ML Topical Cream Ammonium Lactate 06/29/2020 12:00:00 AM EST active [facility] ([facility] Urea 400 MG/ML Topical Cream Urea 04/24/2020 12:00:00 AM EDT active [facility] ([facility] Acetaminophen 325 MG / Oxycodone Hydrochloride 5 MG Or al Tablet [Percocet] Percocet 04/17/2020 12:00:00 AM EDT ORAL completed [facility] ([facility], ) Ibuprofen 800 MG Oral Tablet Ibuprofen 03/30/2020 12:00:00 AM EDT active [facility] ([facility]) Cyclobenzaprine hydrochloride 10 MG Oral Tablet Cyclobenzapr ine HCL 03/30/2020 12:00:00 AM EDT active M ED[facility] ([facility]) No Active Medications 03/30/2020 12:00:00 AM EDT completed [facility] ([facility]) Abdominal Binder/Elastic/3X-Large 03/13/2020 12:00:00 AM EDT active [facility] ([facility], ) Acetaminophen 325 MG / Oxycodone Hydrochloride 5 MG Or al Tablet [Percocet] Percocet 01/18/2020 12:00:00 AM EDT ORAL completed [facility] ([facility], ) Methocarbamol 750 MG Oral Tablet methoca rbamol 750 mg tablet TAKE ONE TABLET BY MOUTH THREE TIMES DAILY methocarbamol 750 mg tablet TAKE ONE TAB LET BY MOUTH THREE TIMES DAILY completed meth ocarbamol 750 MG Oral Tablet [place] ([facility]) Lidocaine 40 MG/ML Topical Cream lidocai ne 4 % topical cream apply thin layer TO affected AREA ON back EVERY 8 HOURS NEEDED DIRECTED lidocaine 4 % topical cream apply thin layer TO affected AREA ON back EVERY 8 HOURS NEEDED DIRECTED completed lidocaine 40 MG/ML Topical Cream [place] ([facility]) Ibuprofen 600 MG Oral Tablet ibuprofen 6 00 mg tablet TAKE ONE TABLET BY MOUTH THREE TIMES DAILY WITH FOOD ibuprofen 600 mg tablet TAKE ONE TABLET BY MOUTH THREE TIMES DAILY WITH FOOD completed ibuprofen 600 MG Oral Tablet [facility] ([facility]) chlorhexidine gluconate 1.2 MG/ML Mouthw crispin chlorhexidine gluconate 0.12 % mouthwash RINSE AND SPIT ONE CAPFUL BY MOUTH THREE TIMES DAILY BEGINNING TOMORROW chlorhexidine gluconate 0.12 % mouthwash RINSE AND SPIT ONE CAPFUL BY MOUTH THREE TIMES DAILY BEGINNING TOMORROW completed chlorhexidine gluconate 1.2 MG/ML Mouthwash [place] ([facility]) Cyclobenzaprine hydrochloride 10 MG Oral Tablet cyclobenzaprine 10 mg tablet TAKE ONE TABLET BY MOUTH EVERY EIGHT HOURS NEEDED cyclobenzaprine 10 mg tablet TAKE ONE TABLET BY MOUTH EVERY EIGHT HOURS NEEDED completed cyclobenzaprine hydrochloride 10 MG Oral Tablet [place] ([facility]) Amoxicillin 875 MG / Clavulanate 125 MG Oral Tablet amoxicillin 875 mg-potassium clavulanate 125 mg tablet TAKE ONE TABLET BY MOUTH TWICE DAILY amoxicillin 875 mg-potassium clavulanate 125 mg tablet TAKE ONE TABLET BY MOUTH TWICE DAILY completed amoxicillin 875 MG / c lavulanate 125 MG Oral Tablet [place] ([facility]) ammonium lactate 120 MG/ML Topical Cream ammonium lactate 12 % topical cream APPLY TOPICALLY TO FEET ONCE DAILY ammonium lactate 12 % topical cream APPL Y TOPICALLY TO FEET ONCE DAILY completed ammonium lactate 120 MG/ML Topical Cream [facility]) meloxicam 7.5 MG Oral Tablet meloxicam 7 .5 mg tablet TAKE ONE TABLET BY MOUTH TWICE DAILY meloxicam 7.5 mg tablet TAKE ONE TABLET BY MOUTH TWICE DAILY completed meloxicam 7.5 MG Ora l Tablet [facility]) Sucralfate 1000 MG Oral Tablet sucralfat e 1 gram tablet TAKE ONE TABLET BY MOUTH TWICE DAILY sucralfate 1 gram tablet TAKE ONE TABLET BY MOUTH TWICE DAILY completed sucralfate 1000 MG Ora l Tablet [place] ([facility]) Cyclobenzaprine hydrochloride 10 MG Oral Tablet cyclobenzaprine 10 mg tablet TAKE ONE TABLET BY MOUTH EVERY EIGHT HOURS NEEDED cyclobenzaprine 10 mg tablet TAKE ONE TABLET BY MOUTH EVERY EIGHT HOURS NEEDED completed cyclobenzaprine hydrochloride 10 MG Oral Tablet [place] ([facility]) tramadol hydrochloride 50 MG Oral Tablet tramadol 50 mg tablet TAKE 1 OR 2 TABLETS BY MOUTH EVERY 6 HOURS NEEDED FOR PAIN AFTER surgery MAX DAILY DOSE SIX TABLETS tramadol 50 mg tablet TAKE 1 OR 2 TABLET S BY MOUTH EVERY 6 HOURS NEEDED FOR PAIN AFTER surgery MAX DAILY DOSE SIX TABLETS completed tramadol hydrochloride 50 MG Oral Tablet [place] ([facility]) chlorhexidine gluconate 1.2 MG/ML Mouthw crispin chlorhexidine gluconate 0.12 % mouthwash RINSE AND SPIT ONE CAPFUL BY MOUTH THREE TIMES DAILY BEGINNING TOMORROW chlorhexidine gluconate 0.12 % mouthwash RINSE AND SPIT ONE CAPFUL BY MOUTH THREE TIMES DAILY BEGINNING TOMORROW completed chlorhexidine gluconate 1.2 MG/ML Mouthwash [facility] ([facility]) tramadol hydrochloride 50 MG Oral Tablet tramadol 50 mg tablet TAKE 1 OR 2 TABLETS BY MOUTH EVERY 6 HOURS NEEDED FOR PAIN AFTER surgery MAX DAILY DOSE SIX TABLETS tramadol 50 mg tablet TAKE 1 OR 2 TABLET S BY MOUTH EVERY 6 HOURS NEEDED FOR PAIN AFTER surgery MAX DAILY DOSE SIX TABLETS completed tramadol hydrochloride 50 MG Oral Tablet [facility] ([facility]) Ibuprofen 600 MG Oral Tablet ibuprofen 6 00 mg tablet TAKE ONE TABLET BY MOUTH THREE TIMES DAILY WITH FOOD ibuprofen 600 mg tablet TAKE ONE TABLET BY MOUTH THREE TIMES DAILY WITH FOOD completed ibuprofen 600 MG Oral Tablet [facility] ([facility]) Lidocaine 40 MG/ML Topical Cream lidocai ne 4 % topical cream apply thin layer TO affected AREA ON back EVERY 8 HOURS NEEDED DIRECTED lidocaine 4 % topical cream apply thin layer TO affected AREA ON back EVERY 8 HOURS NEEDED DIRECTED completed lidocaine 40 MG/ML Topical Cream [place] ([facility]) Acetaminophen 325 MG / Oxycodone Hydroch loride 5 MG Oral Tablet oxycodone- acetaminophen 5 mg-325 mg tablet TAKE 1 OR 2 TABLETS BY MOUTH EVERY 6 HOURS NEEDED FOR PAIN MAX DAILY DOSE SIX TABLETS oxycodone-acetaminophen 5 mg-325 mg tablet TAKE 1 OR 2 TABLETS BY MOUTH EVERY 6 HOURS NEEDED FOR PAIN MAX DAILY DOSE SIX TABLETS completed acetaminophen 325 MG / oxycodone hydrochloride 5 MG Oral Tablet [place] ([facility]) Sucralfate 1000 MG Oral Tablet sucralfat e 1 gram tablet TAKE ONE TABLET BY MOUTH TWICE DAILY sucralfate 1 gram tablet TAKE ONE TABLET BY MOUTH TWICE DAILY completed sucralfate 1000 MG Ora l Tablet [facility] ([facility]) Amoxicillin 500 MG Oral Capsule amoxicil sulma 500 mg capsule TAKE ONE CAPSULE BY MOUTH EVERY 8 HOURS NEEDED amoxicillin 500 mg capsule TAKE ONE CAPS ULE BY MOUTH EVERY 8 HOURS NEEDED complete d amoxicillin 500 MG Oral Capsule [place] ([facility]) Ketorolac Tromethamine 10 MG Oral Tablet ketorolac 10 mg tablet TAKE ONE TABLET BY MOUTH TWICE DAILY NEEDED FOR PAIN ketorolac 10 mg tablet TAKE ONE TABLET BY MOUTH TWICE DAILY NEEDED FOR PAIN completed ketorolac tromethamine 10 MG Oral Tablet [facility] ([facility]) Ondansetron 4 MG Oral Tablet ondansetron HCl 4 mg tablet TAKE ONE TABLET BY MOUTH EVERY 6 HOURS NEEDED FOR NAUSEA ondansetron HCl 4 mg tablet TAKE ONE TABLET BY MOUTH EVERY 6 HOURS NEEDED FOR NAUSEA completed ondansetron 4 MG Oral Tablet [facility] ([facility]) Ondansetron 4 MG Oral Tablet ondansetron HCl 4 mg tablet TAKE ONE TABLET BY MOUTH EVERY 6 HOURS NEEDED FOR NAUSEA ondansetron HCl 4 mg tablet TAKE ONE TABLET BY MOUTH EVERY 6 HOURS NEEDED FOR NAUSEA completed ondansetron 4 MG Oral Tablet [facility] ([facility]) Amoxicillin 875 MG / Clavulanate 125 MG Oral Tablet amoxicillin 875 mg-potassium clavulanate 125 mg tablet TAKE ONE TABLET BY MOUTH TWICE DAILY amoxicillin 875 mg-potassium clavulanate 125 mg tablet TAKE ONE TABLET BY MOUTH TWICE DAILY completed amoxicillin 875 MG / c lavulanate 125 MG Oral Tablet [place] ([facility]) Acetaminophen 325 MG / Oxycodone Hydroch loride 5 MG Oral Tablet oxycodone- acetaminophen 5 mg-325 mg tablet TAKE 1 OR 2 TABLETS BY MOUTH EVERY 6 HOURS NEEDED FOR PAIN MAX DAILY DOSE SIX TABLETS oxycodone-acetaminophen 5 mg-325 mg tablet TAKE 1 OR 2 TABLETS BY MOUTH EVERY 6 HOURS NEEDED FOR PAIN MAX DAILY DOSE SIX TABLETS completed acetaminophen 325 MG / oxycodone hydrochloride 5 MG Oral Tablet [place] ([facility]) Ketorolac Tromethamine 10 MG Oral Tablet ketorolac 10 mg tablet TAKE ONE TABLET BY MOUTH TWICE DAILY NEEDED FOR PAIN ketorolac 10 mg tablet TAKE ONE TABLET BY MOUTH TWICE DAILY NEEDED FOR PAIN completed ketorolac tromethamine 10 MG Oral Tablet [place] ([facility]) Methocarbamol 750 MG Oral Tablet methoca rbamol 750 mg tablet TAKE ONE TABLET BY MOUTH THREE TIMES DAILY methocarbamol 750 mg tablet TAKE ONE TAB LET BY MOUTH THREE TIMES DAILY completed meth ocarbamol 750 MG Oral Tablet [place] ([facility]) Lidocaine 40 MG/ML Topical Cream lidocai ne 4 % topical cream apply thin layer TO affected AREA ON back EVERY 8 HOURS NEEDED DIRECTED lidocaine 4 % topical cream apply thin layer TO affected AREA ON back EVERY 8 HOURS NEEDED DIRECTED completed lidocaine 40 MG/ML Topical Cream [place] ([facility]) Lidocaine 40 MG/ML Topical Cream lidocai ne 4 % topical cream apply thin layer TO affected AREA ON back EVERY 8 HOURS NEEDED DIRECTED lidocaine 4 % topical cream apply thin layer TO affected AREA ON back EVERY 8 HOURS NEEDED DIRECTED completed lidocaine 40 MG/ML Topical Cream [place] ([facility]) Sucralfate 1000 MG Oral Tablet sucralfat e 1 gram tablet TAKE ONE TABLET BY MOUTH TWICE DAILY sucralfate 1 gram tablet TAKE ONE TABLET BY MOUTH TWICE DAILY completed sucralfate 1000 MG Ora l Tablet [place] ([facility]) Sucralfate 1000 MG Oral Tablet sucralfat e 1 gram tablet TAKE ONE TABLET BY MOUTH TWICE DAILY sucralfate 1 gram tablet TAKE ONE TABLET BY MOUTH TWICE DAILY completed sucralfate 1000 MG Ora l Tablet [place] ([facility]) meloxicam 7.5 MG Oral Tablet meloxicam 7 .5 mg tablet TAKE ONE TABLET BY MOUTH TWICE DAILY meloxicam 7.5 mg tablet TAKE ONE TABLET BY MOUTH TWICE DAILY completed meloxicam 7.5 MG Ora l Tablet [place] ([facility]) Amoxicillin 875 MG / Clavulanate 125 MG Oral Tablet amoxicillin 875 mg-potassium clavulanate 125 mg tablet TAKE ONE TABLET BY MOUTH TWICE DAILY amoxicillin 875 mg-potassium clavulanate 125 mg tablet TAKE ONE TABLET BY MOUTH TWICE DAILY completed amoxicillin 875 MG / c lavulanate 125 MG Oral Tablet [place] ([facility]) Acetaminophen 325 MG / Oxycodone Hydroch loride 5 MG Oral Tablet oxycodone- acetaminophen 5 mg-325 mg tablet TAKE 1 OR 2 TABLETS BY MOUTH EVERY 6 HOURS NEEDED FOR PAIN MAX DAILY DOSE SIX TABLETS oxycodone-acetaminophen 5 mg-325 mg tablet TAKE 1 OR 2 TABLETS BY MOUTH EVERY 6 HOURS NEEDED FOR PAIN MAX DAILY DOSE SIX TABLETS completed acetaminophen 325 MG / oxycodone hydrochloride 5 MG Oral Tablet [facility] ([facility]) Amoxicillin 500 MG Oral Capsule amoxicil sulma 500 mg capsule TAKE ONE CAPSULE BY MOUTH EVERY 8 HOURS NEEDED amoxicillin 500 mg capsule TAKE ONE CAPS ULE BY MOUTH EVERY 8 HOURS NEEDED complete d amoxicillin 500 MG Oral Capsule [place] ([facility]) Ondansetron 4 MG Oral Tablet ondansetron HCl 4 mg tablet TAKE ONE TABLET BY MOUTH EVERY 6 HOURS NEEDED FOR NAUSEA ondansetron HCl 4 mg tablet TAKE ONE TABLET BY MOUTH EVERY 6 HOURS NEEDED FOR NAUSEA completed ondansetron 4 MG Oral Tablet [place] ([facility]) chlorhexidine gluconate 1.2 MG/ML Mouthw crispin chlorhexidine gluconate 0.12 % mouthwash RINSE AND SPIT ONE CAPFUL BY MOUTH THREE TIMES DAILY BEGINNING TOMORROW chlorhexidine gluconate 0.12 % mouthwash RINSE AND SPIT ONE CAPFUL BY MOUTH THREE TIMES DAILY BEGINNING TOMORROW completed chlorhexidine gluconate 1.2 MG/ML Mouthwash [place] ([facility]) Cyclobenzaprine hydrochloride 10 MG Oral Tablet cyclobenzaprine 10 mg tablet TAKE ONE TABLET BY MOUTH EVERY EIGHT HOURS NEEDED cyclobenzaprine 10 mg tablet TAKE ONE TABLET BY MOUTH EVERY EIGHT HOURS NEEDED completed cyclobenzaprine hydrochloride 10 MG Oral Tablet [place] ([facility]) meloxicam 7.5 MG Oral Tablet meloxicam 7 .5 mg tablet TAKE ONE TABLET BY MOUTH TWICE DAILY meloxicam 7.5 mg tablet TAKE ONE TABLET BY MOUTH TWICE DAILY completed meloxicam 7.5 MG Ora l Tablet [place] ([facility]) Amoxicillin 875 MG / Clavulanate 125 MG Oral Tablet amoxicillin 875 mg-potassium clavulanate 125 mg tablet TAKE ONE TABLET BY MOUTH TWICE DAILY amoxicillin 875 mg-potassium clavulanate 125 mg tablet TAKE ONE TABLET BY MOUTH TWICE DAILY completed amoxicillin 875 MG / c lavulanate 125 MG Oral Tablet [place] ([facility]) meloxicam 7.5 MG Oral Tablet meloxicam 7 .5 mg tablet TAKE ONE TABLET BY MOUTH TWICE DAILY meloxicam 7.5 mg tablet TAKE ONE TABLET BY MOUTH TWICE DAILY completed meloxicam 7.5 MG Ora l Tablet [place] ([facility]) chlorhexidine gluconate 1.2 MG/ML Mouthw crispin chlorhexidine gluconate 0.12 % mouthwash RINSE AND SPIT ONE CAPFUL BY MOUTH THREE TIMES DAILY BEGINNING TOMORROW chlorhexidine gluconate 0.12 % mouthwash RINSE AND SPIT ONE CAPFUL BY MOUTH THREE TIMES DAILY BEGINNING TOMORROW completed chlorhexidine gluconate 1.2 MG/ML Mouthwash [place] ([facility]) Amoxicillin 500 MG Oral Capsule amoxicil sulma 500 mg capsule TAKE ONE CAPSULE BY MOUTH EVERY 8 HOURS NEEDED amoxicillin 500 mg capsule TAKE ONE CAPS ULE BY MOUTH EVERY 8 HOURS NEEDED complete d amoxicillin 500 MG Oral Capsule [facility] ([facility]) ammonium lactate 120 MG/ML Topical Cream ammonium lactate 12 % topical cream APPLY TOPICALLY TO FEET ONCE DAILY ammonium lactate 12 % topical cream APPL Y TOPICALLY TO FEET ONCE DAILY completed ammonium lactate 120 MG/ML Topical Cream [facility] ([facility]) ammonium lactate 120 MG/ML Topical Cream ammonium lactate 12 % topical cream APPLY TOPICALLY TO FEET ONCE DAILY ammonium lactate 12 % topical cream APPL Y TOPICALLY TO FEET ONCE DAILY completed ammonium lactate 120 MG/ML Topical Cream [place] ([facility]) Amoxicillin 500 MG Oral Capsule amoxicil sulma 500 mg capsule TAKE ONE CAPSULE BY MOUTH EVERY 8 HOURS NEEDED amoxicillin 500 mg capsule TAKE ONE CAPS ULE BY MOUTH EVERY 8 HOURS NEEDED complete d amoxicillin 500 MG Oral Capsule F[place] ([facility]) Acetaminophen 325 MG / Oxycodone Hydroch loride [...] oxycodone hydrochloride 5 MG Oral Tablet [facility] ([facility]) Cyclobenzaprine hydrochloride 10 MG Oral Tablet cyclobenzaprine 10 mg tablet TAKE ONE TABLET BY MOUTH EVERY EIGHT HOURS NEEDED cyclobenzaprine 10 mg tablet TAKE ONE TABLET BY MOUTH EVERY EIGHT HOURS NEEDED completed cyclobenzaprine hydrochloride 10 MG Oral Tablet FREIDA ([facility]) Ibuprofen 600 MG Oral Tablet ibuprofen 6 00 mg tablet TAKE ONE TABLET BY MOUTH THREE TIMES DAILY WITH FOOD ibuprofen 600 mg tablet TAKE ONE TABLET BY MOUTH THREE TIMES DAILY WITH FOOD completed ibuprofen 600 MG Oral Tablet [place] ([facility]) ammonium lactate 120 MG/ML Topical Cream ammonium lactate 12 % topical cream APPLY TOPICALLY TO FEET ONCE DAILY ammonium lactate 12 % topical cream APPL Y TOPICALLY TO FEET ONCE DAILY completed ammonium lactate 120 MG/ML Topical Cream [place] ([facility]) Ibuprofen 600 MG Oral Tablet ibuprofen 6 00 mg tablet TAKE ONE TABLET BY MOUTH THREE TIMES DAILY WITH FOOD ibuprofen 600 mg tablet TAKE ONE TABLET BY MOUTH THREE TIMES DAILY WITH FOOD completed ibuprofen 600 MG Oral Tablet F[place] ([facility]) Insurance Providers Payer name Policy type / Coverage type Policy ID Covered libertarian ID Covered libertarian's relationship to craft Policy Craft Plan Information [facility] [id number] SP [id number] SELF PAY ONLY [id number] SP [id number] Medicaid P [id number] S [id number] [place] 306/806 [id number] SP [id number] Medicaid S [id number] S [id number] Managed Care - Community Plan [facility] P [id number] S [id number] [facility] Community Plan Commercial [id number] Self [id number] [facility] Community Plan [facility] P [id number] S [id number] [facility] Care - [facility] Plan P [id number] S [id number] Medicaid S [id number] S [id number] [facility] Care [facility] Plan P [id number] S [id number] Medicaid S [id number] S [id number] Self Pay P UNAVAILABLE S UNAVAILA BLE Managed Care - Community Plan [facility] P [id number] S [id number] Medicaid S [id number] S [id number] [facility] Communty Plan Medicaid [id number] Self [id number] [facility] [id number] Self [id number] [facility] Health Maintenance Organization (HMO) [id number] Self [id number] MEDICAID M [id number] S [id number] [place] 306/806 [id number] SP [id number] [employer] BCBS B [id number] S [id number] [place] 306/806 [id number] [facility] Commercial [id number] Self [id number] [facility] Hmo Commercial [id number] Self [facility] COMMUNITY PLAN MCDO [id number] SP [id number] D Managed Care [facility] P [id number] S [id number] [facility](MCAID) O [id number] S [id number] [facility] [id number] SP [id number] [facility] SP 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 COMMUNTY PLAN [id number] HC COMMUNITY PLAN XIX [id number] Problems, Conditions, and Diagnoses Code Display Name Description Problem Type Effective Dates Data Source(s) 09385907 Smoker Smoker Problem 09/27/2020 12:00:00 AM ED Rani GUAN ([facility]) [id number] Smoker Smoker Problem 09/27/2020 12:00:00 AM ED Rani GUAN ([facility]) [id number] Smoker Smoker Problem 09/27/2020 12:00:00 AM ED Rani GUAN ([facility]) [id number] Anemia Anemia Problem 07/26/2020 12:00:00 AM BRITTANY GUAN ([facility]) [id number] Anemia Anemia Problem 07/26/2020 12:00:00 AM BRITTANY GUAN ([facility]) [id number] Anemia Anemia Problem 07/26/2020 12:00:00 AM BRITTANY GUAN ([facility]) [id number] Anemia Anemia Problem 07/26/2020 12:00:00 AM ES T FREIDA ([facility]) Corns and callosities Corns and callosities Problem 05/08/2020 12:00:00 AM EDT MEDENT ([facility] [id number] Pronation Pronation Problem 05/08/2020 12:00:00 AM ED T MEDENT ([facility] [id number] Pronation Pronation Problem 05/08/2020 12:00:00 AM ED T MEDENT ([facility] [id number] Plantar fascial fibromatosis Plantar fascial fibromato sis Problem 05/08/2020 12:00:00 AM EDT [facility] ([facility] Surgeries/Procedures Procedure Description Date Indications Data Source(s) OFFICE OUTPATIENT VISIT 15 MINUTES 02/14/2021 12:00:00 AM EDT MED[facility] ([facility] ) Small Bowel Resection W/Anastomosis (Single) 08/15/19 12:00:00 AM EST MEDENT ([facility]) Repair Umbilical Hernia, Age 5 Years Or Older Incarcerated O r STR 08/15/2020 12:00:00 AM EST MEDENT ([facility]) Repair Umbilical Hernia Age 5 Years Or Older Reducible 08/03/2020 12:00:00 AM EST MED[facility] ([facility]) Fine Needle Aspiration W/O Imag 04/17/2020 12:00:00 AM EDT MEDENT ([facility]) Therapeutic, Prophylactic Or Diagnostic Injection Subq/Im 03/30/2020 12:00:00 AM EDT MED[facility] ([facility]) Results ID Date Data Source [id number] 01/18/2021 11:07:00 AM EDT FREIDA ([facility]) Name Value Range Interpretation Code Description Data Stephanie rce(s) Supporting Document(s) Leukocytes [#/volume] in Blood by Automated count 5.7 thousand/uL 3 .8-10.8 White Blood Cell Count FREIDA ([facility]) Erythrocytes [#/volume] in Blood by Automated count 5.39 million/uL 4.20-5.80 Red Blood Cell Count [facility] ([facility]) Hemoglobin [Mass/volume] in Blood 13.2 g/dL 13.2-17.1 He moglobin FREIDA ([facility]) Hematocrit [Volume Fraction] of Blood by Automated count 40.0 % 38.5-50.0 Hematocrit FREIDA ([facility]) Erythrocyte mean corpuscular volume [Entitic volume] by Auto mated count 74.2 fL 80.0-100.0 Below low normal Mcv FREIDA ([facility]) Erythrocyte mean corpuscular hemoglobin [Entitic mass] by Automated count 24.5 pg 27.0-33.0 Below low normal Mch FREIDA ([facility]) Erythrocyte mean corpuscular hemoglobin concentration [Mass/volume] by Automated count 33.0 g/dL 32.0-36.0 Mchc FREIDA ([facility]) Erythrocyte distribution width [Ratio] by Automated count 16.5 % 11.0-15.0 Above high normal Rdw FREIDA ([facility]) Platelets [#/volume] in Blood by Automated count 149 thousand/uL 14 0-400 Platelet Count FREIDA ([facility]) Platelet mean volume [Entitic volume] in Blood by Fernando 12. 8 fL 7.5-12.5 Above high normal Mpv FREIDA ([facility]) Neutrophils [#/volume] in Blood by Automated count 3523 cells/uL 15 00-7800 Absolute Neutrophils FREIDA ([facility]) Lymphocytes [#/volume] in Blood by Automated count 1288 cells/uL 85 0-3900 Absolute Lymphocytes FREIDA ([facility]) Monocytes [#/volume] in Blood by Automated count 439 cells/uL 200-9 50 Absolute Monocytes FREIDA ([facility]) Eosinophils [#/volume] in Blood by Automated count 428 cells/uL 15- 500 Absolute Eosinophils FREIDA ([facility]) Basophils [#/volume] in Blood by Automated count 23 cells/uL 0-200 Absolute Basophils FREIDA ([facility]) Neutrophils/100 leukocytes in Blood by Automated count 61.8 % 38-80 Neutrophils FREIDA ([facility]) Lymphocytes/100 leukocytes in Blood by Automated count 22.6 % 15-49 Lymphocytes FREIDA ([facility]) Monocytes/100 leukocytes in Blood by Automated count 7.7 % 0-13 Monocytes FREIDA ([facility]) Eosinophils/100 leukocytes in Blood by Automated count 7.5 % 0-8 Eosinophils FREIDA ([facility]) Basophils/100 leukocytes in Blood by Automated count 0.4 % 0-2 Basophils FREIDA ([facility]) ID Date Data Source [id number] 01/18/2021 11:07:00 AM [facility] Name Value Range Interpretation Code Description Data Stephanie rce(s) Supporting Document(s) Iron [Mass/volume] in Serum or Plasma 47 mcg/dL 50-180 [place] low normal Iron, Total FREIDA ([facility]) ID Date Data Source [id number] 11/20/2020 12:00:00 AM EDT [facility] Name Value Range Interpretation Code Description Data Stephanie rce(s) Supporting Document(s) SARS-CoV2 Rapid Antigen Negative [facility] This lab was ordered by [facility] and reported by [facility]. ID Date Data Source [id number] 09/26/2020 09:36:00 PM EDT [facility]) Name Value Range Interpretation Code Description Data Stephanie rce(s) Supporting Document(s) istat HCT 41.0 % 38.0-51.0 Istat HCT FREIDA ([facility]) istat glucose 88 mg/dL 70-105 Istat Glucose FREIDA ( [facility]) istat sodium 140 mEq/L 136-145 Istat Sodium FREIDA (No [facility]) istat potassium 4.0 mEq/L 3.5-5.1 Istat Potassium ATHE NA ([facility]) istat Ca++ 4.5 mg/dL 4.5-5.3 Istat Ca++ FREIDA ([facility]) istat chloride 102 mEq/L 98-109 Istat Chloride FREIDA ([facility]) istat CO2 30.0 mm/L 23.0-27.0 Above high normal Istat CO2 FREIDA ([facility]) istat BUN 11 mg/dL 8-26 Istat BUN FREIDA ([facility]) istat creatinine 1.0 mg/dL 0.6-1.3 Istat Creatinine AT [facility]) ID Date Data Source [id number] 09/26/2020 09:36:00 PM EDT [facility]) Name Value Range Interpretation Code Description Data Stephanie rce(s) Supporting Document(s) istat HCT 41.0 % 38.0-51.0 Istat HCT FREIDA ([facility]) istat glucose 88 mg/dL 70-105 Istat Glucose FREIDA ( [facility]) istat sodium 140 mEq/L 136-145 Istat Sodium FREIDA ([facility]) istat potassium 4.0 mEq/L 3.5-5.1 Istat Potassium ATHE NA ([facility]) istat Ca++ 4.5 mg/dL 4.5-5.3 Istat Ca++ FREIDA ([facility]) istat chloride 102 mEq/L 98-109 Istat Chloride FREIDA ([facility]) istat CO2 30.0 mm/L 23.0-27.0 Above high normal Istat CO2 FREIDA ([facility]) istat BUN 11 mg/dL 8-26 Istat BUN [facility]IDA ([facility]) istat creatinine 1.0 mg/dL 0.6-1.3 Istat Creatinine AT [facility]) ID Date Data Source [id number] 09/26/2020 09:36:00 PM EDT [facility]) Name Value Range Interpretation Code Description Data Stephanie rce(s) Supporting Document(s) istat HCT 41.0 % 38.0-51.0 Istat HCT FREIDA ([facility]) istat glucose 88 mg/dL 70-105 Istat Glucose FREIDA ( [facility]) istat sodium 140 mEq/L 136-145 Istat Sodium FREIDA ([facility]) istat potassium 4.0 mEq/L 3.5-5.1 Istat Potassium ATHE NA ([facility]) istat Ca++ 4.5 mg/dL 4.5-5.3 Istat Ca++ FREIDA ([facility]) istat chloride 102 mEq/L 98-109 Istat Chloride FREIDA ([facility]) istat CO2 30.0 mm/L 23.0-27.0 Above high normal Istat CO2 FREIDA ([facility]) istat BUN 11 mg/dL 8-26 Istat BUN FREIDA ([facility]) istat creatinine 1.0 mg/dL 0.6-1.3 Istat Creatinine AT [place] ([facility]) ID Date Data Source [id number] 09/26/2020 08:40:00 PM EDT [place] ([facility]) Name Value Range Interpretation Code Description Data Stephanie rce(s) Supporting Document(s) white blood count 9.6 10 4.0-10.0 White Blood Count FREIDA ([facility]) red blood count 5.27 10 4.30-6.10 Red Blood Count ATHE NA ([facility]) hemoglobin 13.1 g/dL 13.5-17.5 Below low normal Hemoglobin FREIDA ( [facility]) hematocrit 42.5 % 42.0-52.0 Hematocrit FREIDA ([facility]) mean corpuscular volume 80.6 fL 80.0-96.0 Mean Corpusc ular Volume FREIDA ([facility]) mean corpuscular hemoglobin 24.9 pg 27.0-33.0 Below low nor mal Mean Corpuscular Hemoglobin FREIDA ([facility]) mean corpuscular HGB conc 30.8 g/dL 32.0-36.5 Below low luis felipe l Mean Corpuscular HGB Conc [place] ([facility]) red cell distribution width 15.8 % 11.5-14.5 Above high no rmal Red Cell Distribution Width FREIDA ([facility]) platelet count, automated 216 10 150-450 Platelet C ount, Automated FREIDA ([facility]) neutrophils % 62.4 % 36.0-66.0 Neutrophils % FREIDA ( [facility]) lymph % 28.6 % 24.0-44.0 Lymph % [place] ([facility]) mono % 4.5 % 2.0-8.0 [place] % [place] ([facility]) eos % 4.0 % 0.0-3.0 Above high normal Eos % [place] ([facility]) baso % 0.2 % 0.0-1.0 Baso % [place] ([facility]) immature granulocyte % 0.3 % 0-3.0 Immature Gran ulocyte % FREIDA ([facility]) nucleated red blood cell % 0.0 % 0-0 Nucleated Red Blood Cell % [place] ([facility]) neutrophils # 6.0 10 1.5-8.5 Neutrophils # [place] ( [facility]) lymph # 2.7 10 1.5-5.0 Lymph # [place]REIDA ([facility]) mono # 0.4 10 0.0-0.8 [place] # FREIDA ([facility]) eos # 0.4 10 0.0-0.5 Eos # FREIDA ([facility]) baso # 0.0 10 0.0-0.2 Baso # [place] ([facility]) ID Date Data Source [id number] 09/26/2020 08:40:00 PM EDT [place] ([facility]) Name Value Range Interpretation Code Description Data Stephanie rce(s) Supporting Document(s) white blood count 9.6 10 4.0-10.0 White Blood Count [place] ([facility]) red blood count 5.27 10 4.30-6.10 Red Blood Count ATHE NA ([facility]) hemoglobin 13.1 g/dL 13.5-17.5 Below low normal Hemoglobin FREIDA ( [facility]) hematocrit 42.5 % 42.0-52.0 Hematocrit FREIDA ([facility]) mean corpuscular volume 80.6 fL 80.0-96.0 Mean Corpusc ular Volume FREIDA ([facility]) mean corpuscular hemoglobin 24.9 pg 27.0-33.0 Below low nor mal Mean Corpuscular Hemoglobin FREIDA ([facility]) mean corpuscular HGB conc 30.8 g/dL 32.0-36.5 Below low luis felipe l Mean Corpuscular HGB Conc FREIDA ([facility]) red cell distribution width 15.8 % 11.5-14.5 Above high no rmal Red Cell Distribution Width FREIDA ([facility]) platelet count, automated 216 10 150-450 Platelet C ount, Automated FREIDA ([facility]) neutrophils % 62.4 % 36.0-66.0 Neutrophils % FREIDA ( [facility]) lymph % 28.6 % 24.0-44.0 Lymph % FREIDA ([facility]) mono % 4.5 % 2.0-8.0 [place] % FREIDA ([facility]) eos % 4.0 % 0.0-3.0 Above high normal Eos % FREIDA ([facility]) baso % 0.2 % 0.0-1.0 Baso % FREIDA ([facility]) immature granulocyte % 0.3 % 0-3.0 Immature Gran ulocyte % FREIDA ([facility]) nucleated red blood cell % 0.0 % 0-0 Nucleated Red Blood Cell % FREIDA ([facility]) neutrophils # 6.0 10 1.5-8.5 Neutrophils # FREIDA ( [facility]) lymph # 2.7 10 1.5-5.0 Lymph # FREIDA ([facility]) mono # 0.4 10 0.0-0.8 [place] # FREIDA ([facility]) eos # 0.4 10 0.0-0.5 Eos # FREIDA ([facility]) baso # 0.0 10 0.0-0.2 Baso # FREIDA ([facility]) ID Date Data Source [id number] 09/26/2020 08:40:00 PM EDT FREIDA ([facility]) Name Value Range Interpretation Code Description Data Stephanie rce(s) Supporting Document(s) white blood count 9.6 10 4.0-10.0 White Blood Count FREIDA ([facility]) red blood count 5.27 10 4.30-6.10 Red Blood Count ATHE NA ([facility]) hemoglobin 13.1 g/dL 13.5-17.5 Below low normal Hemoglobin FREIDA ( [facility]) hematocrit 42.5 % 42.0-52.0 Hematocrit FREIDA ([facility]) mean corpuscular volume 80.6 fL 80.0-96.0 Mean Corpusc ular Volume FREIDA ([facility]) mean corpuscular hemoglobin 24.9 pg 27.0-33.0 Below low nor mal Mean Corpuscular Hemoglobin FREIDA ([facility]) mean corpuscular HGB conc 30.8 g/dL 32.0-36.5 Below low luis felipe l Mean Corpuscular HGB Conc FREIDA ([facility]) red cell distribution width 15.8 % 11.5-14.5 Above high no rmal Red Cell Distribution Width FREIDA ([facility]) platelet count, automated 216 10 150-450 Platelet C ount, Automated FREIDA ([facility]) neutrophils % 62.4 % 36.0-66.0 Neutrophils % FREIDA ( [facility]) lymph % 28.6 % 24.0-44.0 Lymph % FREIDA ([facility]) mono % 4.5 % 2.0-8.0 [place] % FREIDA ([facility]) eos % 4.0 % 0.0-3.0 Above high normal Eos % FREIDA ([facility]) baso % 0.2 % 0.0-1.0 Baso % [place] ([facility]) immature granulocyte % 0.3 % 0-3.0 Immature Gran ulocyte % [place] ([facility]) nucleated red blood cell % 0.0 % 0-0 Nucleated Red Blood Cell % [place] ([facility]) neutrophils # 6.0 10 1.5-8.5 Neutrophils # FREIDA ( [facility]) lymph # 2.7 10 1.5-5.0 Lymph # FREIDA ([facility]) mono # 0.4 10 0.0-0.8 [place] # FREIDA ([facility]) eos # 0.4 10 0.0-0.5 Eos # FREIDA ([facility]) baso # 0.0 10 0.0-0.2 Baso # FREIDA ([facility]) ID Date Data Source [id number] 09/17/2020 11:29:00 AM [facility] Name Value Range Interpretation Code Description Data Stephanie rce(s) Supporting Document(s) SARS coronavirus 2 RNA Not Detected [facility] This lab was ordered by [facility] and reported by [facility]. ID Date Data Source [id number] 08/23/2020 10:58:00 AM EST [place] ([facility]) Name Value Range Interpretation Code Description Data Stephanie rce(s) Supporting Document(s) glucose, fasting 82 mg/dL 70-100 Glucose, Fasting AT [facility]) blood urea nitrogen 9 mg/dL 7-18 Blood Urea Nitro gen [place] ([facility]) creatinine for GFR 0.86 mg/dL 0.70-1.30 Creatinine for GF R [place] ([facility]) glomerular filtration rate > 60.0 >60 Glomerula r Filtration Rate [place]IDA ([facility]) sodium level 141 mEq/L 136-145 Sodium Level [place] (No [facility]) potassium serum 4.4 mEq/L 3.5-5.1 Potassium Serum ATH NA ([facility]) chloride level 103 mEq/L 98-107 Chloride Level [place] ([facility]) carbon dioxide level 32 mEq/L 21-32 Carbon Dioxide Level [place] ([facility]) anion gap 6 mEq/L 8-16 Below low normal Anion Gap FREIDA ( [facility]) calcium level 9.0 mg/dL 8.5-10.1 Calcium Level F[place]IDA ( [facility]) AST/SGOT 14 U/L 7-37 AST/SGOT [place] ([facility]) ALT/SGPT 33 U/L 12-78 ALT/SGPT [facility] ([facility]) alkaline phosphatase 101 U/L 45-117 Alkaline Phosph atase FREIDA ([facility]) bilirubin,total 0.3 mg/dL 0.2-1.0 Bilirubin,total ATHE ([facility]) total protein 7.0 gm/dL 6.4-8.2 Total Protein [facility] ( [facility]) albumin 2.9 gm/dL 3.2-5.2 Below low normal Albumin [facility] ( [facility]) albumin/globulin ratio Albumin/globu sulma Ratio [facility] ([facility]) ID Date Data Source [id number] 08/23/2020 10:58:00 AM EST [place] ([facility]) Name Value Range Interpretation Code Description Data Stephanie rce(s) Supporting Document(s) white blood count 7.1 10 4.0-10.0 White Blood Count [place] ([facility]) red blood count 4.59 10 4.30-6.10 Red Blood Count ATHE NA ([facility]) hemoglobin 11.2 g/dL 13.5-17.5 Below low normal Hemoglobin [place] ( [facility]) hematocrit 38.0 % 42.0-52.0 Below low normal Hematocrit [facility] ( [facility]) mean corpuscular volume 82.8 fL 80.0-96.0 Mean Corpusc ular Volume FREIDA ([facility]) mean corpuscular hemoglobin 24.4 pg 27.0-33.0 Below low nor mal Mean Corpuscular Hemoglobin FREIDA ([facility]) mean corpuscular HGB conc 29.5 g/dL 32.0-36.5 Below low luis felipe l Mean Corpuscular HGB Conc [place] ([facility]) red cell distribution width 15.8 % 11.5-14.5 Above high no rmal Red Cell Distribution Width [place] ([facility]) platelet count, automated 260 10 150-450 Platelet C ount, Automated [place] ([facility]) nucleated red blood cell % 0.0 % 0-0 Nucleated Red Blood Cell % [place] ([facility]) ID Date Data Source [id number] 08/23/2020 10:58:00 AM EST [facility] ([facility], ) Name Value Range Interpretation Code Description Data Stephanie rce(s) Supporting Document(s) Glucose, Fasting 82 mg/dL 70-100 Normal (applies to non-numeric results) [facility] ([facility], ) Blood Urea Nitrogen 9 mg/dL 7-18 Normal (applies to non-nume jess results) [facility] ([facility], ) Creatinine For GFR 0.86 mg/dL 0.70-1.30 Normal (applies to non -numeric results) [facility] ([facility], ) Glomerular Filtration Rate Laboratory test result Normal (applies to non- numeric results) [facility] ([facility], ) <content>Units are mL/min/1.73 m2</content>
<content></content>
<content>Chronic Kidney Disease Staging per NK[facility]:</content>
<content></content>
<content>Stage I & II GFR >=60 Normal to Mildly Decreased</content>
<content>Stage III GFR 30- 59 Moderately Decreased</content>
<content>Stage IV GFR 15-29 Severely Decreased</content>
<content>Stage V GFR <15 Very Little GFR Left</content>
<content>ESRD GFR <15 on [employer]</content>
<content></content> Potassium Serum 4.4 meq/L 3.5-5.1 Normal (applies to non-numeric results) [facility] ([facility], ) Sodium Level 141 meq/L 136-145 Normal (applies to non-numeric res ults) [facility] ([facility]) Chloride Level 103 meq/L 98-107 Normal (applies to non-numeric r esults) [facility]) Anion Gap 6 meq/L 8-16 Below low normal [facility] ( [facility]) Carbon Dioxide Level 32 meq/L 21-32 Normal (applies to non-num eleonora results) [facility] ([facility]) Calcium Level 9.0 mg/dL 8.5-10.1 Normal (applies to non-numeric re sults) [facility] ([facility]) Ast/Sgot 14 U/L 7-37 Normal (applies to non-numeric resul ts) [facility] ([facility]) Alt/SGPT 33 U/L 12-78 Normal (applies to non-numeric resul ts) [facility]) Bilirubin,Total 0.3 mg/dL 0.2-1.0 Normal (applies to non-numeric results) [facility] ([facility]) Alkaline Phosphatase 101 U/L 45-117 Normal (applies to non-num eleonora results) [facility] ([facility]) Total Protein 7.0 GM/DL 6.4-8.2 Normal (applies to non-numeric re sults) [facility]) Albumin 2.9 GM/DL 3.2-5.2 Below low normal [facility] ( [facility]) Albumin/Globulin Ratio 0.7 Normal (applies to non-n umeric results) [facility]) ID Date Data Source [id number] 08/23/2020 10:58:00 AM EST [facility] ([facility]) Name Value Range Interpretation Code Description Data Stephanie rce(s) Supporting Document(s) White Blood Count 7.1 10 4.0-10.0 Normal (applies to non-numeri c results) [facility] ([facility]) Red Blood Count 4.59 10 4.30-6.10 Normal (applies to non-numeric results) [facility] ([facility]) Hemoglobin 11.2 g/dL 13.5-17.5 Below low normal [facility] ( [facility]) Mean Corpuscular Hemoglobin 24.4 pg 27.0-33.0 Below low normal [facility] ([facility]) Mean Corpuscular Volume 82.8 fl 80.0-96.0 Normal ( applies to non-numeric results) [facility] ([facility]) Hematocrit 38.0 % 42.0-52.0 Below low normal [facility] ( [facility]) Red Cell Distribution Width 15.8 % 11.5-14.5 Above high normal [facility] ([facility]) Mean Corpuscular HGB Conc 29.5 g/dL 32.0-36.5 Below low normal [facility] ([facility]) Nucleated Red Blood Cell % 0.0 % 0-0 Normal (applies to n on-numeric results) [facility] ([facility]) Platelet Count, Automated 260 10 150-450 Normal (applies to non-numeric results) [facility] ([facility]) ID Date Data Source [id number] 08/23/2020 10:58:00 AM EST [place] ([facility]) Name Value Range Interpretation Code Description Data Stephanie rce(s) Supporting Document(s) glucose, fasting 82 mg/dL 70-100 Glucose, Fasting AT [facility]) blood urea nitrogen 9 mg/dL 7-18 Blood Urea Nitro gen [place] ([facility]) creatinine for GFR 0.86 mg/dL 0.70-1.30 Creatinine for GF R [place] ([facility]) glomerular filtration rate > 60.0 >60 Glomerula r Filtration Rate [place] ([facility]) sodium level 141 mEq/L 136-145 Sodium Level [place] (No [facility]) potassium serum 4.4 mEq/L 3.5-5.1 Potassium Serum [facility] NA ([facility]) chloride level 103 mEq/L 98-107 Chloride Level [place] ([facility]) carbon dioxide level 32 mEq/L 21-32 Carbon Dioxide Level [place] ([facility]) anion gap 6 mEq/L 8-16 Below low normal Anion Gap [place] ( [facility]) calcium level 9.0 mg/dL 8.5-10.1 Calcium Level [place] ( [facility]) AST/SGOT 14 U/L 7-37 AST/SGOT [place] ([facility]) ALT/SGPT 33 U/L 12-78 ALT/SGPT [place] ([facility]) alkaline phosphatase 101 U/L 45-117 Alkaline Phosph atase [facility] ([facility]) bilirubin,total 0.3 mg/dL 0.2-1.0 Bilirubin,total [facility] NA ([facility]) total protein 7.0 gm/dL 6.4-8.2 Total Protein [place] ( [facility]) albumin 2.9 gm/dL 3.2-5.2 Below low normal Albumin [place] ( [facility]) albumin/globulin ratio Albumin/globu sulma Ratio [facility] ([facility]) ID Date Data Source [id number] 08/23/2020 10:58:00 AM EST [place] ([facility]) Name Value Range Interpretation Code Description Data Stephanie rce(s) Supporting Document(s) white blood count 7.1 10 4.0-10.0 White Blood Count [facility] ([facility]) red blood count 4.59 10 4.30-6.10 Red Blood Count [facility] ([facility]) hemoglobin 11.2 g/dL 13.5-17.5 Below low normal Hemoglobin [place] ( [facility]) hematocrit 38.0 % 42.0-52.0 Below low normal Hematocrit [place] ( [facility]) mean corpuscular volume 82.8 fL 80.0-96.0 Mean Corpusc ular Volume [facility] ([facility]) mean corpuscular hemoglobin 24.4 pg 27.0-33.0 Below low nor mal Mean Corpuscular Hemoglobin [facility] ([facility]) mean corpuscular HGB conc 29.5 g/dL 32.0-36.5 Below low luis felipe l Mean Corpuscular HGB Conc [facility] ([facility]) red cell distribution width 15.8 % 11.5-14.5 Above high no rmal Red Cell Distribution Width [facility] ([facility]) platelet count, automated 260 10 150-450 Platelet C ount, Automated [place] ([facility]) nucleated red blood cell % 0.0 % 0-0 Nucleated Red Blood Cell % [place] ([facility]) ID Date Data Source [id number] 08/23/2020 10:58:00 AM EST [place] ([facility]) Name Value Range Interpretation Code Description Data Stephanie rce(s) Supporting Document(s) glucose, fasting 82 mg/dL 70-100 Glucose, Fasting AT [facility]) blood urea nitrogen 9 mg/dL 7-18 Blood Urea Nitro gen [place] ([facility]) creatinine for GFR 0.86 mg/dL 0.70-1.30 Creatinine for GF R [place] ([facility]) glomerular filtration rate > 60.0 >60 Glomerula r Filtration Rate [place] ([facility]) sodium level 141 mEq/L 136-145 Sodium Level [place] ([facility]) potassium serum 4.4 mEq/L 3.5-5.1 Potassium Serum [facility]) chloride level 103 mEq/L 98-107 Chloride Level [facility]) carbon dioxide level 32 mEq/L 21-32 Carbon Dioxide Level [place] ([facility]) anion gap 6 mEq/L 8-16 Below low normal Anion Gap [place] ( [facility]) calcium level 9.0 mg/dL 8.5-10.1 Calcium Level [place] ( [facility]) AST/SGOT 14 U/L 7-37 AST/SGOT [place] ([facility]) ALT/SGPT 33 U/L 12-78 ALT/SGPT [facility] ([facility]) alkaline phosphatase 101 U/L 45-117 Alkaline Phosph atase [facility] ([facility]) bilirubin,total 0.3 mg/dL 0.2-1.0 Bilirubin,total ATHE [facility]) total protein 7.0 gm/dL 6.4-8.2 Total Protein [place] ( [facility]) albumin 2.9 gm/dL 3.2-5.2 Below low normal Albumin [place] ( [facility]) albumin/globulin ratio Albumin/globu sulma Ratio [facility] ([facility]) ID Date Data Source [id number] 08/23/2020 10:58:00 AM EST [place] ([facility]) Name Value Range Interpretation Code Description Data Stephanie rce(s) Supporting Document(s) white blood count 7.1 10 4.0-10.0 White Blood Count [facility] ([facility]) red blood count 4.59 10 4.30-6.10 Red Blood Count [facility] ([facility]) hemoglobin 11.2 g/dL 13.5-17.5 Below low normal Hemoglobin [facility] ( [facility]) hematocrit 38.0 % 42.0-52.0 Below low normal Hematocrit [facility] ( [facility]) mean corpuscular volume 82.8 fL 80.0-96.0 Mean Corpusc ular Volume [facility] ([facility]) mean corpuscular hemoglobin 24.4 pg 27.0-33.0 Below low nor mal Mean Corpuscular Hemoglobin [facility] ([facility]) mean corpuscular HGB conc 29.5 g/dL 32.0-36.5 Below low luis felipe l Mean Corpuscular HGB Conc [facility] ([facility]) red cell distribution width 15.8 % 11.5-14.5 Above high no rmal Red Cell Distribution Width [facility] ([facility]) platelet count, automated 260 10 150-450 Platelet C ount, Automated [place] ([facility]) nucleated red blood cell % 0.0 % 0-0 Nucleated Red Blood Cell % [facility] ([facility]) ID Date Data Source [id number] 08/19/2020 05:22:00 AM EST [place] ([facility]) Name Value Range Interpretation Code Description Data Stephanie rce(s) Supporting Document(s) C reactive protein quantitativ 8.74 mg/dL 0.00-0.30 Above high normal C Reactive Protein Quantitativ [facility]) ID Date Data Source [id number] 08/19/2020 05:22:00 AM EST [place] ([facility]) Name Value Range Interpretation Code Description Data Stephanie rce(s) Supporting Document(s) glucose, fasting 79 mg/dL 70-100 Glucose, Fasting AT [facility]) blood urea nitrogen 4 mg/dL 7-18 Below low normal Blood Urea Nitrogen [place] ([facility]) creatinine for GFR 0.70 mg/dL 0.70-1.30 Creatinine for GF R [place] ([facility]) glomerular filtration rate > 60.0 >60 Glomerula r Filtration Rate [place] ([facility]) sodium level 141 mEq/L 136-145 Sodium Level [place] (No [facility]) potassium serum 3.5 mEq/L 3.5-5.1 Potassium Serum [facility] ([facility]) chloride level 104 mEq/L 98-107 Chloride Level [place] ([facility]) carbon dioxide level 30 mEq/L 21-32 Carbon Dioxide Level [place] ([facility]) anion gap 7 mEq/L 8-16 Below low normal Anion Gap [place] ( [facility]) calcium level 7.9 mg/dL 8.5-10.1 Below low normal Calcium Level AT [facility]) ID Date Data Source [id number] 08/19/2020 05:22:00 AM EST [place] ([facility]) Name Value Range Interpretation Code Description Data Stephanie rce(s) Supporting Document(s) white blood count 8.0 10 4.0-10.0 White Blood Count [place] ([facility]) red blood count 4.27 10 4.30-6.10 Below low normal Red Blood Coun t [place] ([facility]) hemoglobin 10.6 g/dL 13.5-17.5 Below low normal Hemoglobin [place] ( [facility]) hematocrit 34.6 % 42.0-52.0 Below low normal Hematocrit [place] ( [facility]) mean corpuscular volume 81.0 fL 80.0-96.0 Mean Corpusc ular Volume [facility] ([facility]) mean corpuscular hemoglobin 24.8 pg 27.0-33.0 Below low nor mal Mean Corpuscular Hemoglobin [facility] ([facility]) mean corpuscular HGB conc 30.6 g/dL 32.0-36.5 Below low luis fleipe l Mean Corpuscular HGB Conc [facility] ([facility]) red cell distribution width 15.4 % 11.5-14.5 Above high no rmal Red Cell Distribution Width [place] ([facility]) platelet count, automated 190 10 150-450 Platelet C ount, Automated [place] ([facility]) neutrophils % 53.7 % 36.0-66.0 Neutrophils % [place] ( [facility]) lymph % 23.1 % 24.0-44.0 Below low normal Lymph % [place] ( [facility]) mono % 5.3 % 0.0-5.0 Above high normal [place] % [place] ([facility]) eos % 17.0 % 0.0-3.0 Above high normal Eos % [place] ([facility]) baso % 0.4 % 0.0-1.0 Baso % [place] ([facility]) immature granulocyte % 0.5 % 0-3.0 Immature Gran ulocyte % [place] ([facility]) nucleated red blood cell % 0.0 % 0-0 Nucleated Red Blood Cell % [place] ([facility]) neutrophils # 4.3 10 1.5-8.5 Neutrophils # [place] ( [facility]) lymph # 1.9 10 1.5-5.0 Lymph # [facility] ([facility]) mono # 0.4 10 0.0-0.8 [place] # [facility] ([facility]) eos # 1.4 10 0.0-0.5 Above high normal Eos # [facility] ([facility]) baso # 0.0 10 0.0-0.2 Baso # [place] ([facility]) ID Date Data Source [id number] 08/19/2020 05:22:00 AM EST [place] ([facility]) Name Value Range Interpretation Code Description Data Stephanie rce(s) Supporting Document(s) white blood count 8.0 10 4.0-10.0 White Blood Count [place] ([facility]) red blood count 4.27 10 4.30-6.10 Below low normal Red Blood Coun t [place] ([facility]) hemoglobin 10.6 g/dL 13.5-17.5 Below low normal Hemoglobin [place] ( [facility]) hematocrit 34.6 % 42.0-52.0 Below low normal Hematocrit [place] ( [facility]) mean corpuscular volume 81.0 fL 80.0-96.0 Mean Corpusc ular Volume [place] ([facility]) mean corpuscular hemoglobin 24.8 pg 27.0-33.0 Below low nor mal Mean Corpuscular Hemoglobin [place] ([facility]) mean corpuscular HGB conc 30.6 g/dL 32.0-36.5 Below low luis felipe l Mean Corpuscular HGB Conc [place] ([facility]) red cell distribution width 15.4 % 11.5-14.5 Above high no rmal Red Cell Distribution Width [place] ([facility]) platelet count, automated 190 10 150-450 Platelet C ount, Automated [place] ([facility]) neutrophils % 53.7 % 36.0-66.0 Neutrophils % [place] ( [facility]) lymph % 23.1 % 24.0-44.0 Below low normal Lymph % [facility]) mono % 5.3 % 0.0-5.0 Above high normal [place] % [place] ([facility]) eos % 17.0 % 0.0-3.0 Above high normal Eos % [place] ([facility]) baso % 0.4 % 0.0-1.0 Baso % [place] ([facility]) immature granulocyte % 0.5 % 0-3.0 Immature Gran ulocyte % [place] ([facility]) nucleated red blood cell % 0.0 % 0-0 Nucleated Red Blood Cell % [place] ([facility]) neutrophils # 4.3 10 1.5-8.5 Neutrophils # [place] ( [facility]) lymph # 1.9 10 1.5-5.0 Lymph # [place] ([facility]) mono # 0.4 10 0.0-0.8 [place] # [facility] ([facility]) eos # 1.4 10 0.0-0.5 Above high normal Eos # [facility] ([facility]) baso # 0.0 10 0.0-0.2 Baso # [place] ([facility]) ID Date Data Source [id number] 08/19/2020 05:22:00 AM EST [place] ([facility]) Name Value Range Interpretation Code Description Data Stephanie rce(s) Supporting Document(s) C reactive protein quantitativ 8.74 mg/dL 0.00-0.30 Above high normal C Reactive Protein Quantitativ [place] ([facility]) ID Date Data Source [id number] 08/19/2020 05:22:00 AM EST [place] ([facility]) Name Value Range Interpretation Code Description Data Stephanie rce(s) Supporting Document(s) glucose, fasting 79 mg/dL 70-100 Glucose, Fasting AT [facility]) blood urea nitrogen 4 mg/dL 7-18 Below low normal Blood Urea Nitrogen [facility] ([facility]) creatinine for GFR 0.70 mg/dL 0.70-1.30 Creatinine for GF R [place] ([facility]) glomerular filtration rate > 60.0 >60 Glomerula r Filtration Rate [place] ([facility]) sodium level 141 mEq/L 136-145 Sodium Level [place] ([facility]) potassium serum 3.5 mEq/L 3.5-5.1 Potassium Serum [facility] NA ([facility]) chloride level 104 mEq/L 98-107 Chloride Level [place] ([facility]) carbon dioxide level 30 mEq/L 21-32 Carbon Dioxide Level [place] ([facility]) anion gap 7 mEq/L 8-16 Below low normal Anion Gap [place] ( [facility]) calcium level 7.9 mg/dL 8.5-10.1 Below low normal Calcium Level AT [facility] ([facility]) ID Date Data Source [id number] 08/19/2020 05:22:00 AM EST [place] ([facility]) Name Value Range Interpretation Code Description Data Stephanie rce(s) Supporting Document(s) white blood count 8.0 10 4.0-10.0 White Blood Count [place] ([facility]) red blood count 4.27 10 4.30-6.10 Below low normal Red Blood Coun t [place] ([facility]) hemoglobin 10.6 g/dL 13.5-17.5 Below low normal Hemoglobin [place] ( [facility]) hematocrit 34.6 % 42.0-52.0 Below low normal Hematocrit [place] ( [facility]) mean corpuscular volume 81.0 fL 80.0-96.0 Mean Corpusc ular Volume [place] ([facility]) mean corpuscular hemoglobin 24.8 pg 27.0-33.0 Below low nor mal Mean Corpuscular Hemoglobin [place] ([facility]) mean corpuscular HGB conc 30.6 g/dL 32.0-36.5 Below low luis felipe l Mean Corpuscular HGB Conc [place] ([facility]) red cell distribution width 15.4 % 11.5-14.5 Above high no rmal Red Cell Distribution Width [place] ([facility]) platelet count, automated 190 10 150-450 Platelet C ount, Automated [place] ([facility]) neutrophils % 53.7 % 36.0-66.0 Neutrophils % [place] ( [facility]) mono % 5.3 % 0.0-5.0 Above high normal [place] % [place] ([facility]) lymph % 23.1 % 24.0-44.0 Below low normal Lymph % [facility]) eos % 17.0 % 0.0-3.0 Above high normal Eos % [facility]) baso % 0.4 % 0.0-1.0 Baso % [place] ([facility]) immature granulocyte % 0.5 % 0-3.0 Immature Gran ulocyte % [place] ([facility]) nucleated red blood cell % 0.0 % 0-0 Nucleated Red Blood Cell % [facility] ([facility]) neutrophils # 4.3 10 1.5-8.5 Neutrophils # [place] ( [facility]) lymph # 1.9 10 1.5-5.0 Lymph # [place] ([facility]) mono # 0.4 10 0.0-0.8 [place] # [facility] ([facility]) eos # 1.4 10 0.0-0.5 Above high normal Eos # [facility] ([facility]) baso # 0.0 10 0.0-0.2 Baso # [place] ([facility]) ID Date Data Source [id number] 08/19/2020 05:22:00 AM EST [place] ([facility]) Name Value Range Interpretation Code Description Data Stephanie rce(s) Supporting Document(s) C reactive protein quantitativ 8.74 mg/dL 0.00-0.30 Above high normal C Reactive Protein Quantitativ [place] ([facility]) ID Date Data Source [id number] 08/19/2020 05:22:00 AM EST [place] ([facility]) Name Value Range Interpretation Code Description Data Stephanie rce(s) Supporting Document(s) glucose, fasting 79 mg/dL 70-100 Glucose, Fasting AT [facility] ([facility]) blood urea nitrogen 4 mg/dL 7-18 Below low normal Blood Urea Nitrogen [place] ([facility]) creatinine for GFR 0.70 mg/dL 0.70-1.30 Creatinine for GF R [place] ([facility]) glomerular filtration rate > 60.0 >60 Glomerula r Filtration Rate [place] ([facility]) sodium level 141 mEq/L 136-145 Sodium Level [place] ([facility]) potassium serum 3.5 mEq/L 3.5-5.1 Potassium Serum [facility] NA ([facility]) chloride level 104 mEq/L 98-107 Chloride Level [place] ([facility]) carbon dioxide level 30 mEq/L 21-32 Carbon Dioxide Level [place] ([facility]) anion gap 7 mEq/L 8-16 Below low normal Anion Gap [place] ( [facility]) calcium level 7.9 mg/dL 8.5-10.1 Below low normal Calcium Level AT [facility]) ID Date Data Source [id number] 08/18/2020 05:32:00 AM EST [place] ([facility]) Name Value Range Interpretation Code Description Data Stephanie rce(s) Supporting Document(s) C reactive protein quantitativ 12.30 mg/dL 0.00-0.30 Above high normal C Reactive Protein Quantitativ [place] ([facility]) ID Date Data Source [id number] 08/18/2020 05:32:00 AM EST [place] ([facility]) Name Value Range Interpretation Code Description Data Stephanie rce(s) Supporting Document(s) glucose, fasting 69 mg/dL 70-100 Below low normal Glucose, Fast ing [place] ([facility]) blood urea nitrogen 3 mg/dL 7-18 Below low normal Blood Urea Nitrogen [place] ([facility]) creatinine for GFR 0.65 mg/dL 0.70-1.30 Below low normal Creatinine for GFR [place] ([facility]) glomerular filtration rate > 60.0 >60 Glomerula r Filtration Rate [place] ([facility]) sodium level 141 mEq/L 136-145 Sodium Level [place] ([facility]) potassium serum 3.4 mEq/L 3.5-5.1 Below low normal Potassium Seru m [place] ([facility]) chloride level 106 mEq/L 98-107 Chloride Level [place] ([facility]) carbon dioxide level 28 mEq/L 21-32 Carbon Dioxide Level [place] ([facility]) anion gap 7 mEq/L 8-16 Below low normal Anion Gap [place] ( [facility]) calcium level 7.9 mg/dL 8.5-10.1 Below low normal Calcium Level AT [place] ([facility]) ID Date Data Source [id number] 08/18/2020 05:32:00 AM EST [place] ([facility]) Name Value Range Interpretation Code Description Data Stephanie rce(s) Supporting Document(s) white blood count 8.2 10 4.0-10.0 White Blood Count [place] ([facility]) red blood count 4.11 10 4.30-6.10 Below low normal Red Blood Coun t [place] ([facility]) hemoglobin 10.1 g/dL 13.5-17.5 Below low normal Hemoglobin [place] ( [facility]) hematocrit 33.5 % 42.0-52.0 Below low normal Hematocrit [place] ( [facility]) mean corpuscular volume 81.5 fL 80.0-96.0 Mean Corpusc ular Volume [place] ([facility]) mean corpuscular hemoglobin 24.6 pg 27.0-33.0 Below low nor mal Mean Corpuscular Hemoglobin [place] ([facility]) mean corpuscular HGB conc 30.1 g/dL 32.0-36.5 Below low luis felipe l Mean Corpuscular HGB Conc [place] ([facility]) red cell distribution width 15.4 % 11.5-14.5 Above high no rmal Red Cell Distribution Width [place] ([facility]) platelet count, automated 170 10 150-450 Platelet C ount, Automated [place] ([facility]) neutrophils % 60.3 % 36.0-66.0 Neutrophils % [place] ( [facility]) lymph % 19.6 % 24.0-44.0 Below low normal Lymph % [place] ( [facility]) mono % 4.9 % 0.0-5.0 [place] % [place] ([facility]) eos % 14.5 % 0.0-3.0 Above high normal Eos % [place] ([facility]) baso % 0.2 % 0.0-1.0 Baso % [place] ([facility]) immature granulocyte % 0.5 % 0-3.0 Immature Gran ulocyte % [place] ([facility]) nucleated red blood cell % 0.0 % 0-0 Nucleated Red Blood Cell % [place] ([facility]) neutrophils # 4.9 10 1.5-8.5 Neutrophils # [place] ( [facility]) lymph # 1.6 10 1.5-5.0 Lymph # [place] ([facility]) mono # 0.4 10 0.0-0.8 [place] # [place] ([facility]) eos # 1.2 10 0.0-0.5 Above high normal Eos # [place] ([facility]) baso # 0.0 10 0.0-0.2 Baso # [place] ([facility]) ID Date Data Source [id number] 08/18/2020 05:32:00 AM EST [place] ([facility]) Name Value Range Interpretation Code Description Data Stephanie rce(s) Supporting Document(s) C reactive protein quantitativ 12.30 mg/dL 0.00-0.30 Above high normal C Reactive Protein Quantitativ [place] ([facility]) ID Date Data Source [id number] 08/18/2020 05:32:00 AM EST [place] ([facility]) Name Value Range Interpretation Code Description Data Stephanie rce(s) Supporting Document(s) glucose, fasting 69 mg/dL 70-100 Below low normal Glucose, Fast ing [place] ([facility]) blood urea nitrogen 3 mg/dL 7-18 Below low normal Blood Urea Nitrogen [place] ([facility]) creatinine for GFR 0.65 mg/dL 0.70-1.30 Below low normal Creatinine for GFR [place] ([facility]) glomerular filtration rate > 60.0 >60 Glomerula r Filtration Rate [place] ([facility]) sodium level 141 mEq/L 136-145 Sodium Level [place] ([facility]) potassium serum 3.4 mEq/L 3.5-5.1 Below low normal Potassium Seru m [place] ([facility]) chloride level 106 mEq/L 98-107 Chloride Level [place] ([facility]) carbon dioxide level 28 mEq/L 21-32 Carbon Dioxide Level [place] ([facility]) anion gap 7 mEq/L 8-16 Below low normal Anion Gap [place] ( [facility]) calcium level 7.9 mg/dL 8.5-10.1 Below low normal Calcium Level AT [facility]) ID Date Data Source [id number] 08/18/2020 05:32:00 AM EST [place] ([facility]) Name Value Range Interpretation Code Description Data Stephanie rce(s) Supporting Document(s) white blood count 8.2 10 4.0-10.0 White Blood Count [place] ([facility]) red blood count 4.11 10 4.30-6.10 Below low normal Red Blood Coun t [place] ([facility]) hemoglobin 10.1 g/dL 13.5-17.5 Below low normal Hemoglobin [place] ( [facility]) hematocrit 33.5 % 42.0-52.0 Below low normal Hematocrit [place] ( [facility]) mean corpuscular volume 81.5 fL 80.0-96.0 Mean Corpusc ular Volume [place] ([facility]) mean corpuscular hemoglobin 24.6 pg 27.0-33.0 Below low nor mal Mean Corpuscular Hemoglobin [place] ([facility]) mean corpuscular HGB conc 30.1 g/dL 32.0-36.5 Below low luis felipe l Mean Corpuscular HGB Conc [place] ([facility]) red cell distribution width 15.4 % 11.5-14.5 Above high no rmal Red Cell Distribution Width [place] ([facility]) platelet count, automated 170 10 150-450 Platelet C ount, Automated [place] ([facility]) neutrophils % 60.3 % 36.0-66.0 Neutrophils % [place] ( [facility]) lymph % 19.6 % 24.0-44.0 Below low normal Lymph % [place] ( [facility]) mono % 4.9 % 0.0-5.0 [place] % [place] ([facility]) eos % 14.5 % 0.0-3.0 Above high normal Eos % [place] ([facility]) baso % 0.2 % 0.0-1.0 Baso % [place] ([facility]) immature granulocyte % 0.5 % 0-3.0 Immature Gran ulocyte % [place] ([facility]) nucleated red blood cell % 0.0 % 0-0 Nucleated Red Blood Cell % [place] ([facility]) neutrophils # 4.9 10 1.5-8.5 Neutrophils # [place] ( [facility]) mono # 0.4 10 0.0-0.8 [place] # [place] ([facility]) lymph # 1.6 10 1.5-5.0 Lymph # [place] ([facility]) baso # 0.0 10 0.0-0.2 Baso # [place] ([facility]) eos # 1.2 10 0.0-0.5 Above high normal Eos # [place] ([facility]) ID Date Data Source [id number] 08/18/2020 05:32:00 AM EST [place] ([facility]) Name Value Range Interpretation Code Description Data Stephanie rce(s) Supporting Document(s) C reactive protein quantitativ 12.30 mg/dL 0.00-0.30 Above high normal C Reactive Protein Quantitativ [place] ([facility]) ID Date Data Source [id number] 08/18/2020 05:32:00 AM EST [place] ([facility]) Name Value Range Interpretation Code Description Data Stephanie rce(s) Supporting Document(s) glucose, fasting 69 mg/dL 70-100 Below low normal Glucose, Fast ing [place] ([facility]) blood urea nitrogen 3 mg/dL 7-18 Below low normal Blood Urea Nitrogen [place] ([facility]) creatinine for GFR 0.65 mg/dL 0.70-1.30 Below low normal Creatinine for GFR [place] ([facility]) glomerular filtration rate > 60.0 >60 Glomerula r Filtration Rate [place] ([facility]) sodium level 141 mEq/L 136-145 Sodium Level [place] ([facility]) potassium serum 3.4 mEq/L 3.5-5.1 Below low normal Potassium Seru m [place] ([facility]) chloride level 106 mEq/L 98-107 Chloride Level [place] ([facility]) carbon dioxide level 28 mEq/L 21-32 Carbon Dioxide Level [place] ([facility]) anion gap 7 mEq/L 8-16 Below low normal Anion Gap [place] ( [facility]) calcium level 7.9 mg/dL 8.5-10.1 Below low normal Calcium Level AT [facility]) ID Date Data Source [id number] 08/18/2020 05:32:00 AM EST [facility]) Name Value Range Interpretation Code Description Data Stephanie rce(s) Supporting Document(s) white blood count 8.2 10 4.0-10.0 White Blood Count [place] ([facility]) hemoglobin 10.1 g/dL 13.5-17.5 Below low normal Hemoglobin [place] ( [facility]) red blood count 4.11 10 4.30-6.10 Below low normal Red Blood Coun t [facility]) hematocrit 33.5 % 42.0-52.0 Below low normal Hematocrit [place] ( [facility]) mean corpuscular volume 81.5 fL 80.0-96.0 Mean Corpusc ular Volume [place] ([facility]) mean corpuscular hemoglobin 24.6 pg 27.0-33.0 Below low nor mal Mean Corpuscular Hemoglobin [place] ([facility]) mean corpuscular HGB conc 30.1 g/dL 32.0-36.5 Below low luis felipe l Mean Corpuscular HGB Conc [place] ([facility]) red cell distribution width 15.4 % 11.5-14.5 Above high no rmal Red Cell Distribution Width [place] ([facility]) platelet count, automated 170 10 150-450 Platelet C ount, Automated [place] ([facility]) neutrophils % 60.3 % 36.0-66.0 Neutrophils % [place] ( [facility]) lymph % 19.6 % 24.0-44.0 Below low normal Lymph % [place] ( [facility]) mono % 4.9 % 0.0-5.0 [place] % [place] ([facility]) eos % 14.5 % 0.0-3.0 Above high normal Eos % [place] ([facility]) baso % 0.2 % 0.0-1.0 Baso % [place] ([facility]) immature granulocyte % 0.5 % 0-3.0 Immature Gran ulocyte % [place] ([facility]) nucleated red blood cell % 0.0 % 0-0 Nucleated Red Blood Cell % [place] ([facility]) neutrophils # 4.9 10 1.5-8.5 Neutrophils # [place] ( [facility]) lymph # 1.6 10 1.5-5.0 Lymph # [place] ([facility]) mono # 0.4 10 0.0-0.8 [place] # [place] ([facility]) eos # 1.2 10 0.0-0.5 Above high normal Eos # [place] ([facility]) baso # 0.0 10 0.0-0.2 Baso # [place] ([facility]) ID Date Data Source [id number] 08/17/2020 07:35:00 AM EST [place] ([facility]) Name Value Range Interpretation Code Description Data Stephanie rce(s) Supporting Document(s) C reactive protein quantitativ 17.50 mg/dL 0.00-0.30 Above high normal C Reactive Protein Quantitativ [place] ([facility]) ID Date Data Source [id number] 08/17/2020 07:35:00 AM EST [place] ([facility]) Name Value Range Interpretation Code Description Data Stephanie rce(s) Supporting Document(s) glucose, fasting 77 mg/dL 70-100 Glucose, Fasting AT [facility]) blood urea nitrogen 5 mg/dL 7-18 Below low normal Blood Urea Nitrogen [place] ([facility]) creatinine for GFR 0.77 mg/dL 0.70-1.30 Creatinine for GF R [place] ([facility]) glomerular filtration rate > 60.0 >60 Glomerula r Filtration Rate [place] ([facility]) sodium level 141 mEq/L 136-145 Sodium Level [place] ([facility]) potassium serum 3.9 mEq/L 3.5-5.1 Potassium Serum [facility] chloride level 105 mEq/L 98-107 Chloride Level [place] ([facility]) carbon dioxide level 27 mEq/L 21-32 Carbon Dioxide Level [place] ([facility]) anion gap 9 mEq/L 8-16 Anion Gap [place] ([facility]) calcium level 8.2 mg/dL 8.5-10.1 Below low normal Calcium Level AT [facility] ([facility]) ID Date Data Source [id number] 08/17/2020 07:35:00 AM EST [facility]) Name Value Range Interpretation Code Description Data Stephanie rce(s) Supporting Document(s) white blood count 9.8 10 4.0-10.0 White Blood Count [place] ([facility]) red blood count 4.45 10 4.30-6.10 Red Blood Count [place] ([facility]) hemoglobin 10.9 g/dL 13.5-17.5 Below low normal Hemoglobin [place] ( [facility]) hematocrit 36.4 % 42.0-52.0 Below low normal Hematocrit [place] ( [facility]) mean corpuscular volume 81.8 fL 80.0-96.0 Mean Corpusc ular Volume [place] ([facility]) mean corpuscular hemoglobin 24.5 pg 27.0-33.0 Below low nor mal Mean Corpuscular Hemoglobin [place] ([facility]) mean corpuscular HGB conc 29.9 g/dL 32.0-36.5 Below low luis felipe l Mean Corpuscular HGB Conc [place] ([facility]) red cell distribution width 15.6 % 11.5-14.5 Above high no rmal Red Cell Distribution Width [place] ([facility]) platelet count, automated 161 10 150-450 Platelet C ount, Automated [place] ([facility]) neutrophils % 71.0 % 36.0-66.0 Above high normal Neutrophils % [place] ([facility]) lymph % 12.5 % 24.0-44.0 Below low normal Lymph % [place] ( [facility]) mono % 4.9 % 0.0-5.0 [place] % [place] ([facility]) eos % 10.7 % 0.0-3.0 Above high normal Eos % [place] ([facility]) baso % 0.2 % 0.0-1.0 Baso % [place] ([facility]) immature granulocyte % 0.7 % 0-3.0 Immature Gran ulocyte % [place] ([facility]) nucleated red blood cell % 0.0 % 0-0 Nucleated Red Blood Cell % [place] ([facility]) neutrophils # 6.9 10 1.5-8.5 Neutrophils # [place] ( [facility]) lymph # 1.2 10 1.5-5.0 Below low normal Lymph # [place] ( [facility]) mono # 0.5 10 0.0-0.8 [place] # [place] ([facility]) eos # 1.1 10 0.0-0.5 Above high normal Eos # [place] ([facility]) baso # 0.0 10 0.0-0.2 Baso # [place] ([facility]) ID Date Data Source [id number] 08/17/2020 07:35:00 AM EST [place] ([facility]) Name Value Range Interpretation Code Description Data Stephanie rce(s) Supporting Document(s) C reactive protein quantitativ 17.50 mg/dL 0.00-0.30 Above high normal C Reactive Protein Quantitativ [place] ([facility]) ID Date Data Source [id number] 08/17/2020 07:35:00 AM EST [place] ([facility]) Name Value Range Interpretation Code Description Data Stephanie rce(s) Supporting Document(s) glucose, fasting 77 mg/dL 70-100 Glucose, Fasting AT [facility]) blood urea nitrogen 5 mg/dL 7-18 Below low normal Blood Urea Nitrogen [place] ([facility]) creatinine for GFR 0.77 mg/dL 0.70-1.30 Creatinine for GF R [place] ([facility]) glomerular filtration rate > 60.0 >60 Glomer[place] r Filtration Rate [place] ([facility]) sodium level 141 mEq/L 136-145 Sodium Level [place] ([facility]) potassium serum 3.9 mEq/L 3.5-5.1 Potassium Serum [place] ([facility]) chloride level 105 mEq/L 98-107 Chloride Level [place] ([facility]) anion gap 9 mEq/L 8-16 Anion Gap [place] ([facility]) carbon dioxide level 27 mEq/L 21-32 Carbon Dioxide Level [place] ([facility]) calcium level 8.2 mg/dL 8.5-10.1 Below low normal Calcium Level AT [facility]) ID Date Data Source [id number] 08/17/2020 07:35:00 [facility] Name Value Range Interpretation Code Description Data Stephanie rce(s) Supporting Document(s) white blood count 9.8 10 4.0-10.0 White Blood Count [place] ([facility]) red blood count 4.45 10 4.30-6.10 Red Blood Count [place] ([facility]) hemoglobin 10.9 g/dL 13.5-17.5 Below low normal Hemoglobin [place] ( [facility]) mean corpuscular volume 81.8 fL 80.0-96.0 Mean Corpusc ular Volume [place] ([facility]) hematocrit 36.4 % 42.0-52.0 Below low normal Hematocrit [place] ( [facility]) mean corpuscular hemoglobin 24.5 pg 27.0-33.0 Below low nor mal Mean Corpuscular Hemoglobin [place] ([facility]) mean corpuscular HGB conc 29.9 g/dL 32.0-36.5 Below low l[place] l Mean Corpuscular HGB Conc [place] ([facility]) red cell distribution width 15.6 % 11.5-14.5 Above high no rmal Red Cell Distribution Width [place] ([facility]) platelet count, automated 161 10 150-450 Platelet C [place], Automated [place] ([facility]) neutrophils % 71.0 % 36.0-66.0 Above high normal Neutrophils % [place] ([facility]) mono % 4.9 % 0.0-5.0 [place] % [place] ([facility]) lymph % 12.5 % 24.0-44.0 Below low normal Lymph % [place] ( [facility]) eos % 10.7 % 0.0-3.0 Above high normal Eos % [place] ([facility]) baso % 0.2 % 0.0-1.0 Baso % [place] ([facility]) immature granulocyte % 0.7 % 0-3.0 Immature Gran ulocyte % [place] ([facility]) nucleated red blood cell % 0.0 % 0-0 Nucleated Red Blood Cell % [place] ([facility]) neutrophils # 6.9 10 1.5-8.5 Neutrophils # [place] ( [facility]) lymph # 1.2 10 1.5-5.0 Below low normal Lymph # [place] ( [facility]) mono # 0.5 10 0.0-0.8 [place] # [place] ([facility]) eos # 1.1 10 0.0-0.5 Above high normal Eos # [place] ([facility]) baso # 0.0 10 0.0-0.2 Baso # [place] ([facility]) ID Date Data Source [id number] 08/17/2020 07:35:00 AM EST [place] ([facility]) Name Value Range Interpretation Code Description Data Stephanie rce(s) Supporting Document(s) C reactive protein quantitativ 17.50 mg/dL 0.00-0.30 Above high normal C Reactive Protein Quantitativ [facility]) ID Date Data Source [id number] 08/17/2020 07:35:00 AM EST [place] ([facility]) Name Value Range Interpretation Code Description Data Stephanie rce(s) Supporting Document(s) glucose, fasting 77 mg/dL 70-100 Glucose, Fasting AT [facility]) blood urea nitrogen 5 mg/dL 7-18 Below low normal Blood Urea Nitrogen [place] ([facility]) creatinine for GFR 0.77 mg/dL 0.70-1.30 Creatinine for GF R [place] ([facility]) glomerular filtration rate > 60.0 >60 [place] r Filtration Rate [place] ([facility]) sodium level 141 mEq/L 136-145 Sodium Level [place] ([facility]) potassium serum 3.9 mEq/L 3.5-5.1 Potassium Serum [place] ([facility]) chloride level 105 mEq/L 98-107 Chloride Level [place] ([facility]) carbon dioxide level 27 mEq/L 21-32 Carbon Dioxide Level [place] ([facility]) anion gap 9 mEq/L 8-16 Anion Gap [place] ([facility]) calcium level 8.2 mg/dL 8.5-10.1 Below low normal Calcium Level AT [facility] ([facility]) ID Date Data Source [id number] 08/17/2020 07:35:00 AM EST [place] ([facility]) Name Value Range Interpretation Code Description Data Stephanie rce(s) Supporting Document(s) white blood count 9.8 10 4.0-10.0 White Blood Count [place] ([facility]) red blood count 4.45 10 4.30-6.10 Red Blood Count [place] ([facility]) hemoglobin 10.9 g/dL 13.5-17.5 Below low normal Hemoglobin [place] ( [facility]) hematocrit 36.4 % 42.0-52.0 Below low normal Hematocrit [place] ( [facility]) mean corpuscular volume 81.8 fL 80.0-96.0 Mean Corpusc ular Volume [place] ([facility]) mean corpuscular hemoglobin 24.5 pg 27.0-33.0 Below low nor mal Mean Corpuscular Hemoglobin [place] ([facility]) mean corpuscular HGB conc 29.9 g/dL 32.0-36.5 Below low l[place] l Mean Corpuscular HGB Conc [place] ([facility]) red cell distribution width 15.6 % 11.5-14.5 Above high no rmal Red Cell Distribution Width [place] ([facility]) platelet count, automated 161 10 150-450 Platelet C [place], Automated [place] ([facility]) neutrophils % 71.0 % 36.0-66.0 Above high normal Neutrophils % [place] ([facility]) lymph % 12.5 % 24.0-44.0 Below low normal Lymph % [place] ( [facility]) mono % 4.9 % 0.0-5.0 [place] % [place] ([facility]) eos % 10.7 % 0.0-3.0 Above high normal Eos % [place] ([facility]) baso % 0.2 % 0.0-1.0 Baso % [place] ([facility]) immature granulocyte % 0.7 % 0-3.0 Immature Gran ulocyte % [place] ([facility]) nucleated red blood cell % 0.0 % 0-0 Nucleated Red Blood Cell % [place] ([facility]) neutrophils # 6.9 10 1.5-8.5 Neutrophils # [place] ( [facility]) mono # 0.5 10 0.0-0.8 [place] # [place] ([facility]) lymph # 1.2 10 1.5-5.0 Below low normal Lymph # [place] ( [facility]) eos # 1.1 10 0.0-0.5 Above high normal Eos # [place] ([facility]) baso # 0.0 10 0.0-0.2 Baso # [place] ([facility]) ID Date Data Source [id number] 08/16/2020 05:22:00 AM EST [place] ([facility]) Name Value Range Interpretation Code Description Data Stephanie rce(s) Supporting Document(s) glucose, fasting 73 mg/dL 70-100 Glucose, Fasting AT [facility] ([facility]) blood urea nitrogen 7 mg/dL 7-18 Blood Urea Nitro gen [place] ([facility]) creatinine for GFR 0.95 mg/dL 0.70-1.30 Creatinine for GF R [place] ([facility]) glomerular filtration rate > 60.0 >60 Glomerula r Filtration Rate [place] ([facility]) sodium level 142 mEq/L 136-145 Sodium Level [place] ([facility]) potassium serum 4.0 mEq/L 3.5-5.1 Potassium Serum ATHE NA ([facility]) chloride level 107 mEq/L 98-107 Chloride Level [place] ([facility]) carbon dioxide level 25 mEq/L 21-32 Carbon Dioxide Level [place] ([facility]) anion gap 10 mEq/L 8-16 Anion Gap [place] ([facility]) calcium level 8.5 mg/dL 8.5-10.1 Calcium Level [place] ( [facility]) ID Date Data Source [id number] 08/16/2020 05:22:00 AM EST [place] ([facility]) Name Value Range Interpretation Code Description Data Stephanie rce(s) Supporting Document(s) white blood count 10.5 10 4.0-10.0 Above high normal White Blood Count [facility] ([facility]) red blood count 4.70 10 4.30-6.10 Red Blood Count ATHE NA ([facility]) hemoglobin 11.6 g/dL 13.5-17.5 Below low normal Hemoglobin [place] ( [facility]) hematocrit 38.0 % 42.0-52.0 Below low normal Hematocrit [place] ( [facility]) mean corpuscular volume 80.9 fL 80.0-96.0 Mean Corpusc ular Volume [facility] ([facility]) mean corpuscular hemoglobin 24.7 pg 27.0-33.0 Below low nor mal Mean Corpuscular Hemoglobin [facility] ([facility]) mean corpuscular HGB conc 30.5 g/dL 32.0-36.5 Below low luis felipe l Mean Corpuscular HGB Conc [facility] ([facility]) red cell distribution width 15.2 % 11.5-14.5 Above high no rmal Red Cell Distribution Width [facility] ([facility]) platelet count, automated 180 10 150-450 Platelet C ount, Automated [place] ([facility]) neutrophils % 76.7 % 36.0-66.0 Above high normal Neutrophils % A [place] ([facility]) lymph % 11.4 % 24.0-44.0 Below low normal Lymph % [place] ( [facility]) mono % 3.8 % 0.0-5.0 [place] % [place] ([facility]) eos % 7.3 % 0.0-3.0 Above high normal Eos % [facility] ([facility]) baso % 0.1 % 0.0-1.0 Baso % [place] ([facility]) nucleated red blood cell % 0.0 % 0-0 Nucleated Red Blood Cell % [place] ([facility]) immature granulocyte % 0.7 % 0-3.0 Immature Gran ulocyte % [facility] ([facility]) neutrophils # 8.0 10 1.5-8.5 Neutrophils # [place] ( [facility]) lymph # 1.2 10 1.5-5.0 Below low normal Lymph # [place] ( [facility]) mono # 0.4 10 0.0-0.8 [place] # [place] ([facility]) eos # 0.8 10 0.0-0.5 Above high normal Eos # [place] ([facility]) baso # 0.0 10 0.0-0.2 Baso # [place] ([facility]) ID Date Data Source [id number] 08/16/2020 05:22:00 AM EST [place] ([facility]) Name Value Range Interpretation Code Description Data Stephanie rce(s) Supporting Document(s) glucose, fasting 73 mg/dL 70-100 Glucose, Fasting AT [facility] ([facility]) blood urea nitrogen 7 mg/dL 7-18 Blood Urea Nitro gen [place] ([facility]) creatinine for GFR 0.95 mg/dL 0.70-1.30 Creatinine for GF R [place] ([facility]) glomerular filtration rate > 60.0 >60 Glomerula r Filtration Rate [place] ([facility]) sodium level 142 mEq/L 136-145 Sodium Level [place] ([facility]) potassium serum 4.0 mEq/L 3.5-5.1 Potassium Serum ATHE NA ([facility]) chloride level 107 mEq/L 98-107 Chloride Level [place] ([facility]) carbon dioxide level 25 mEq/L 21-32 Carbon Dioxide Level [place] ([facility]) anion gap 10 mEq/L 8-16 Anion Gap [place] ([facility]) calcium level 8.5 mg/dL 8.5-10.1 Calcium Level [place] ( [facility]) ID Date Data Source [id number] 08/16/2020 05:22:00 AM EST [place] ([facility]) Name Value Range Interpretation Code Description Data Stephanie rce(s) Supporting Document(s) white blood count 10.5 10 4.0-10.0 Above high normal White Blood Count [place] ([facility]) red blood count 4.70 10 4.30-6.10 Red Blood Count [facility] ([facility]) hemoglobin 11.6 g/dL 13.5-17.5 Below low normal Hemoglobin [place] ( [facility]) hematocrit 38.0 % 42.0-52.0 Below low normal Hematocrit [place] ( [facility]) mean corpuscular volume 80.9 fL 80.0-96.0 Mean Corpusc ular Volume [facility] ([facility]) mean corpuscular hemoglobin 24.7 pg 27.0-33.0 Below low nor mal Mean Corpuscular Hemoglobin [facility] ([facility]) mean corpuscular HGB conc 30.5 g/dL 32.0-36.5 Below low luis felipe l Mean Corpuscular HGB Conc [facility] ([facility]) red cell distribution width 15.2 % 11.5-14.5 Above high no rmal Red Cell Distribution Width [facility] ([facility]) platelet count, automated 180 10 150-450 Platelet C ount, Automated [place] ([facility]) neutrophils % 76.7 % 36.0-66.0 Above high normal Neutrophils % A [place] ([facility]) mono % 3.8 % 0.0-5.0 [place] % [place] ([facility]) lymph % 11.4 % 24.0-44.0 Below low normal Lymph % [place] ( [facility]) eos % 7.3 % 0.0-3.0 Above high normal Eos % [place] ([facility]) baso % 0.1 % 0.0-1.0 Baso % [place] ([facility]) immature granulocyte % 0.7 % 0-3.0 Immature Gran ulocyte % [place] ([facility]) nucleated red blood cell % 0.0 % 0-0 Nucleated Red Blood Cell % [place] ([facility]) neutrophils # 8.0 10 1.5-8.5 Neutrophils # [place] ( [facility]) mono # 0.4 10 0.0-0.8 [place] # [place] ([facility]) lymph # 1.2 10 1.5-5.0 Below low normal Lymph # [place] ( [facility]) eos # 0.8 10 0.0-0.5 Above high normal Eos # [place] ([facility]) baso # 0.0 10 0.0-0.2 Baso # [place] ([facility]) ID Date Data Source [id number] 08/16/2020 05:22:00 AM EST [place] [facility]) Name Value Range Interpretation Code Description Data Stephanie rce(s) Supporting Document(s) glucose, fasting 73 mg/dL 70-100 Glucose, Fasting AT [facility]) blood urea nitrogen 7 mg/dL 7-18 Blood Urea Nitro gen [place] ([facility]) creatinine for GFR 0.95 mg/dL 0.70-1.30 Creatinine for GF R [place] ([facility]) glomerular filtration rate > 60.0 >60 Glomerula r Filtration Rate [place] ([facility]) sodium level 142 mEq/L 136-145 Sodium Level [place] ([facility]) potassium serum 4.0 mEq/L 3.5-5.1 Potassium Serum ATHE NA ([facility]) chloride level 107 mEq/L 98-107 Chloride Level [place] ([facility]) carbon dioxide level 25 mEq/L 21-32 Carbon Dioxide Level [place] ([facility]) anion gap 10 mEq/L 8-16 Anion Gap [place] ([facility]) calcium level 8.5 mg/dL 8.5-10.1 Calcium Level [place] ( [facility]) ID Date Data Source [id number] 08/16/2020 05:22:00 AM EST [facility]) Name Value Range Interpretation Code Description Data Stephanie rce(s) Supporting Document(s) white blood count 10.5 10 4.0-10.0 Above high normal White Blood Count [place] ([facility]) hemoglobin 11.6 g/dL 13.5-17.5 Below low normal Hemoglobin [place] ( [facility]) red blood count 4.70 10 4.30-6.10 Red Blood Count [facility] ([facility]) hematocrit 38.0 % 42.0-52.0 Below low normal Hematocrit [place] ( [facility]) mean corpuscular volume 80.9 fL 80.0-96.0 Mean Corpusc ular Volume [place] ([facility]) mean corpuscular hemoglobin 24.7 pg 27.0-33.0 Below low nor mal Mean Corpuscular Hemoglobin [facility] ([facility]) mean corpuscular HGB conc 30.5 g/dL 32.0-36.5 Below low luis felipe l Mean Corpuscular HGB Conc [place] ([facility]) red cell distribution width 15.2 % 11.5-14.5 Above high no rmal Red Cell Distribution Width [place] ([facility]) neutrophils % 76.7 % 36.0-66.0 Above high normal Neutrophils % A [place] ([facility]) platelet count, automated 180 10 150-450 Platelet C ount, Automated [place] ([facility]) lymph % 11.4 % 24.0-44.0 Below low normal Lymph % [place] ( [facility]) mono % 3.8 % 0.0-5.0 [place] % [place] ([facility]) baso % 0.1 % 0.0-1.0 Baso % [place] ([facility]) eos % 7.3 % 0.0-3.0 Above high normal Eos % [place] ([facility]) immature granulocyte % 0.7 % 0-3.0 Immature Gran ulocyte % [place] ([facility]) nucleated red blood cell % 0.0 % 0-0 Nucleated Red Blood Cell % [place] ([facility]) neutrophils # 8.0 10 1.5-8.5 Neutrophils # [place] ( [facility]) lymph # 1.2 10 1.5-5.0 Below low normal Lymph # [place] ( [facility]) mono # 0.4 10 0.0-0.8 [place] # [place] ([facility]) eos # 0.8 10 0.0-0.5 Above high normal Eos # [place] ([facility]) baso # 0.0 10 0.0-0.2 Baso # [place] ([facility]) ID Date Data Source [id number] 08/15/2020 05:35:00 AM EST [place] ([facility]) Name Value Range Interpretation Code Description Data Stephanie rce(s) Supporting Document(s) glucose, fasting 63 mg/dL 70-100 Below low normal Glucose, Fast ing [place] ([facility]) blood urea nitrogen 7 mg/dL 7-18 Blood Urea Nitro gen [place] ([facility]) creatinine for GFR 0.72 mg/dL 0.70-1.30 Creatinine for GF R [place] ([facility]) glomerular filtration rate > 60.0 >60 Glomerula r Filtration Rate [place] ([facility]) sodium level 139 mEq/L 136-145 Sodium Level [place] ([facility]) potassium serum 3.5 mEq/L 3.5-5.1 Potassium Serum ATHE NA ([facility]) chloride level 103 mEq/L 98-107 Chloride Level [place] ([facility]) carbon dioxide level 28 mEq/L 21-32 Carbon Dioxide Level [place] ([facility]) anion gap 8 mEq/L 8-16 Anion Gap [place] ([facility]) calcium level 8.7 mg/dL 8.5-10.1 Calcium Level [place] ( [facility]) ID Date Data Source [id number] 08/15/2020 05:35:00 AM EST [place] ([facility]) Name Value Range Interpretation Code Description Data Stephanie rce(s) Supporting Document(s) white blood count 8.4 10 4.0-10.0 White Blood Count [place] ([facility]) red blood count 4.84 10 4.30-6.10 Red Blood Count [place] ([facility]) hemoglobin 12.1 g/dL 13.5-17.5 Below low normal Hemoglobin [place] ( [facility]) hematocrit 39.2 % 42.0-52.0 Below low normal Hematocrit [place] ( [facility]) mean corpuscular volume 81.0 fL 80.0-96.0 Mean Corpusc ular Volume [place] ([facility]) mean corpuscular hemoglobin 25.0 pg 27.0-33.0 Below low nor mal Mean Corpuscular Hemoglobin [place] ([facility]) mean corpuscular HGB conc 30.9 g/dL 32.0-36.5 Below low luis felipe l Mean Corpuscular HGB Conc [place] ([facility]) red cell distribution width 14.9 % 11.5-14.5 Above high no rmal Red Cell Distribution Width [place] ([facility]) platelet count, automated 153 10 150-450 Platelet C ount, Automated [place] ([facility]) neutrophils % 62.8 % 36.0-66.0 Neutrophils % [place] ( [facility]) lymph % 24.8 % 24.0-44.0 Lymph % [place] ([facility]) mono % 4.7 % 0.0-5.0 [place] % [place] ([facility]) eos % 6.8 % 0.0-3.0 Above high normal Eos % [place] ([facility]) baso % 0.2 % 0.0-1.0 Baso % [place] ([facility]) immature granulocyte % 0.7 % 0-3.0 Immature Gran ulocyte % [place] ([facility]) nucleated red blood cell % 0.0 % 0-0 Nucleated Red Blood Cell % [place] ([facility]) neutrophils # 5.2 10 1.5-8.5 Neutrophils # [place] ( [facility]) lymph # 2.1 10 1.5-5.0 Lymph # [place] ([facility]) eos # 0.6 10 0.0-0.5 Above high normal Eos # [place] ([facility]) mono # 0.4 10 0.0-0.8 [place] # [place] ([facility]) baso # 0.0 10 0.0-0.2 Baso # [place] ([facility]) ID Date Data Source [id number] 08/15/2020 05:35:00 AM EST [place] ([facility]) Name Value Range Interpretation Code Description Data Stephanie rce(s) Supporting Document(s) glucose, fasting 63 mg/dL 70-100 Below low normal Glucose, Fast ing [place] ([facility]) blood urea nitrogen 7 mg/dL 7-18 Blood Urea Nitro gen [place] ([facility]) creatinine for GFR 0.72 mg/dL 0.70-1.30 Creatinine for GF R [place] ([facility]) glomerular filtration rate > 60.0 >60 Glomerula r Filtration Rate [place] ([facility]) sodium level 139 mEq/L 136-145 Sodium Level [place] ([facility]) potassium serum 3.5 mEq/L 3.5-5.1 Potassium Serum ATHE NA ([facility]) carbon dioxide level 28 mEq/L 21-32 Carbon Dioxide Level [place] ([facility]) chloride level 103 mEq/L 98-107 Chloride Level [place] ([facility]) anion gap 8 mEq/L 8-16 Anion Gap [place] ([facility]) calcium level 8.7 mg/dL 8.5-10.1 Calcium Level [place] ( [facility]) ID Date Data Source [id number] 08/15/2020 05:35:00 AM EST [facility]) Name Value Range Interpretation Code Description Data Stephanie rce(s) Supporting Document(s) white blood count 8.4 10 4.0-10.0 White Blood Count [place] ([facility]) red blood count 4.84 10 4.30-6.10 Red Blood Count [place] ([facility]) hemoglobin 12.1 g/dL 13.5-17.5 Below low normal Hemoglobin [place] ( [facility]) hematocrit 39.2 % 42.0-52.0 Below low normal Hematocrit [place] ( [facility]) mean corpuscular volume 81.0 fL 80.0-96.0 Mean Corpusc ular Volume [place] ([facility]) mean corpuscular hemoglobin 25.0 pg 27.0-33.0 Below low nor mal Mean Corpuscular Hemoglobin [place] ([facility]) mean corpuscular HGB conc 30.9 g/dL 32.0-36.5 Below low luis felipe l Mean Corpuscular HGB Conc [place] ([facility]) platelet count, automated 153 10 150-450 [facility], [facility] red cell distribution width 14.9 % 11.5-14.5 Above high no rmal Red Cell Distribution Width [place] ([facility]) neutrophils % 62.8 % 36.0-66.0 Neutrophils % [place] ( [facility]) lymph % 24.8 % 24.0-44.0 Lymph % [place] ([facility]) mono % 4.7 % 0.0-5.0 [place] % [place] ([facility]) eos % 6.8 % 0.0-3.0 Above high normal Eos % [place] ([facility]) baso % 0.2 % 0.0-1.0 Baso % [place] ([facility]) immature granulocyte % 0.7 % 0-3.0 Immature Gran ulocyte % [place] ([facility]) nucleated red blood cell % 0.0 % 0-0 Nucleated Red Blood Cell % [place] ([facility]) neutrophils # 5.2 10 1.5-8.5 Neutrophils # [place] ( [facility]) lymph # 2.1 10 1.5-5.0 Lymph # [place] ([facility]) mono # 0.4 10 0.0-0.8 [place] # [place] ([facility]) eos # 0.6 10 0.0-0.5 Above high normal Eos # [place] ([facility]) baso # 0.0 10 0.0-0.2 Baso # [place] ([facility]) ID Date Data Source [id number] 08/15/2020 05:35:00 AM EST [place] ([facility]) Name Value Range Interpretation Code Description Data Stephanie rce(s) Supporting Document(s) glucose, fasting 63 mg/dL 70-100 Below low normal Glucose, Fast ing [place] ([facility]) blood urea nitrogen 7 mg/dL 7-18 Blood Urea Nitro gen [place] ([facility]) creatinine for GFR 0.72 mg/dL 0.70-1.30 Creatinine for GF R [place] ([facility]) glomerular filtration rate > 60.0 >60 Glomerula r Filtration Rate [place] ([facility]) sodium level 139 mEq/L 136-145 Sodium Level [place] ([facility]) potassium serum 3.5 mEq/L 3.5-5.1 Potassium Serum AT[place] NA ([facility]) carbon dioxide level 28 mEq/L 21-32 Carbon Dioxide Level [place] ([facility]) chloride level 103 mEq/L 98-107 Chloride Level [place] ([facility]) anion gap 8 mEq/L 8-16 Anion Gap [place] ([facility]) calcium level 8.7 mg/dL 8.5-10.1 Calcium Level [place] ( [facility]) ID Date Data Source [id number] 08/15/2020 05:35:00 AM EST [place] ([facility]) Name Value Range Interpretation Code Description Data Stephanie rce(s) Supporting Document(s) white blood count 8.4 10 4.0-10.0 White Blood Count [place] ([facility]) red blood count 4.84 10 4.30-6.10 Red Blood Count [place] ([facility]) hematocrit 39.2 % 42.0-52.0 Below low normal Hematocrit [place] ( [facility]) hemoglobin 12.1 g/dL 13.5-17.5 Below low normal Hemoglobin [place] ( [facility]) mean corpuscular volume 81.0 fL 80.0-96.0 Mean Corpusc ular Volume [place] ([facility]) mean corpuscular HGB conc 30.9 g/dL 32.0-36.5 Below low l[place] l Mean Corpuscular HGB Conc [place] ([facility]) mean corpuscular hemoglobin 25.0 pg 27.0-33.0 Below low nor mal Mean Corpuscular Hemoglobin [place] ([facility]) red cell distribution width 14.9 % 11.5-14.5 Above high no rmal Red Cell Distribution Width [place] ([facility]) platelet count, automated 153 10 150-450 Platelet C ount, Automated [place] ([facility]) neutrophils % 62.8 % 36.0-66.0 Neutrophils % [place] ( [facility]) lymph % 24.8 % 24.0-44.0 Lymph % [place] ([facility]) mono % 4.7 % 0.0-5.0 [place] % [place] ([facility]) eos % 6.8 % 0.0-3.0 Above high normal Eos % [place] ([facility]) baso % 0.2 % 0.0-1.0 Baso % [place] ([facility]) immature granulocyte % 0.7 % 0-3.0 Immature Gran ulocyte % [place] ([facility]) neutrophils # 5.2 10 1.5-8.5 Neutrophils # [place] ( [facility]) nucleated red blood cell % 0.0 % 0-0 Nucleated Red Blood Cell % [place] ([facility]) lymph # 2.1 10 1.5-5.0 Lymph # [place] ([facility]) eos # 0.6 10 0.0-0.5 Above high normal Eos # [place] ([facility]) mono # 0.4 10 0.0-0.8 [place] # [place] ([facility]) baso # 0.0 10 0.0-0.2 Baso # [place] ([facility]) ID Date Data Source [id number] 08/14/2020 05:29:00 AM EST [place] ([facility]) Name Value Range Interpretation Code Description Data Stephanie rce(s) Supporting Document(s) glucose, fasting 67 mg/dL 70-100 Below low normal Glucose, Fast ing [place] ([facility]) blood urea nitrogen 8 mg/dL 7-18 Blood Urea Nitro gen [place] ([facility]) creatinine for GFR 0.83 mg/dL 0.70-1.30 Creatinine for GF R [place] ([facility]) glomerular filtration rate > 60.0 >60 Glomerula r Filtration Rate [place] ([facility]) sodium level 141 mEq/L 136-145 Sodium Level [place] ([facility]) potassium serum 3.5 mEq/L 3.5-5.1 Potassium Serum ATHE NA ([facility]) chloride level 103 mEq/L 98-107 Chloride Level [place] ([facility]) carbon dioxide level 28 mEq/L 21-32 Carbon Dioxide Level [place] ([facility]) anion gap 10 mEq/L 8-16 Anion Gap [place] ([facility]) calcium level 8.7 mg/dL 8.5-10.1 Calcium Level [place] ( [facility]) ID Date Data Source [id number] 08/14/2020 05:29:00 AM EST [place] ([facility]) Name Value Range Interpretation Code Description Data Stephanie rce(s) Supporting Document(s) white blood count 9.5 10 4.0-10.0 White Blood Count [place] ([facility]) red blood count 4.92 10 4.30-6.10 Red Blood Count [place] ([facility]) hemoglobin 12.2 g/dL 13.5-17.5 Below low normal Hemoglobin [place] ( [facility]) hematocrit 40.1 % 42.0-52.0 Below low normal Hematocrit [place] ( [facility]) mean corpuscular volume 81.5 fL 80.0-96.0 Mean Corpusc ular Volume [place] ([facility]) mean corpuscular hemoglobin 24.8 pg 27.0-33.0 Below low nor mal Mean Corpuscular Hemoglobin [place] ([facility]) mean corpuscular HGB conc 30.4 g/dL 32.0-36.5 Below low l[place] l Mean Corpuscular HGB Conc [place] ([facility]) red cell distribution width 15.1 % 11.5-14.5 Above high no rmal Red Cell Distribution Width FREIDA ([facility]) neutrophils % 60.3 % 36.0-66.0 Neutrophils % [place] ( [facility]) platelet count, automated 154 10 150-450 Platelet C ount, Automated [place] ([facility]) lymph % 26.1 % 24.0-44.0 Lymph % [place] ([facility]) mono % 5.9 % 0.0-5.0 Above high normal [place] % FREIDA ([facility]) eos % 6.9 % 0.0-3.0 Above high normal Eos % [place] ([facility]) baso % 0.3 % 0.0-1.0 Baso % F[place] ([facility]) immature granulocyte % 0.5 % 0-3.0 Immature Gran ulocyte % F[place] ([facility]) nucleated red blood cell % 0.0 % 0-0 Nucleated Red Blood Cell % F[place] ([facility]) neutrophils # 5.7 10 1.5-8.5 Neutrophils # [place] ( [facility]) lymph # 2.5 10 1.5-5.0 Lymph # [place] ([facility]) mono # 0.6 10 0.0-0.8 [place] # [place] ([facility]) eos # 0.7 10 0.0-0.5 Above high normal Eos # [place] ([facility]) baso # 0.0 10 0.0-0.2 Baso # [place] ([facility]) ID Date Data Source [id number] 08/14/2020 05:29:00 AM EST [place] ([facility]) Name Value Range Interpretation Code Description Data Stephanie rce(s) Supporting Document(s) glucose, fasting 67 mg/dL 70-100 Below low normal Glucose, Fast ing [place] ([facility]) creatinine for GFR 0.83 mg/dL 0.70-1.30 Creatinine for GF R [place] ([facility]) blood urea nitrogen 8 mg/dL 7-18 Blood Urea Nitro gen [place] ([facility]) glomerular filtration rate > 60.0 >60 Glomerula r Filtration Rate [place] ([facility]) sodium level 141 mEq/L 136-145 Sodium Level [place] ([facility]) potassium serum 3.5 mEq/L 3.5-5.1 Potassium Serum ATH NA ([facility]) carbon dioxide level 28 mEq/L 21-32 Carbon Dioxide Level [place] ([facility]) chloride level 103 mEq/L 98-107 Chloride Level [place] ([facility]) anion gap 10 mEq/L 8-16 Anion Gap [place] ([facility]) calcium level 8.7 mg/dL 8.5-10.1 Calcium Level [place] ( [facility]) ID Date Data Source [id number] 08/14/2020 05:29:00 AM EST [place] ([facility]) Name Value Range Interpretation Code Description Data Stephanie rce(s) Supporting Document(s) white blood count 9.5 10 4.0-10.0 White Blood Count [place] ([facility]) red blood count 4.92 10 4.30-6.10 Red Blood Count AT[place] ([facility]) hematocrit 40.1 % 42.0-52.0 Below low normal Hematocrit [place] ( [facility]) hemoglobin 12.2 g/dL 13.5-17.5 Below low normal Hemoglobin [place] ( [facility]) mean corpuscular hemoglobin 24.8 pg 27.0-33.0 Below low nor mal Mean Corpuscular Hemoglobin [place] ([facility]) mean corpuscular volume 81.5 fL 80.0-96.0 Mean Corpusc ular Volume [place] ([facility]) mean corpuscular HGB conc 30.4 g/dL 32.0-36.5 Below low [place] l Mean Corpuscular HGB Conc [place] ([facility]) platelet count, automated 154 10 150-450 Platelet C ount, Automated [place] ([facility]) red cell distribution width 15.1 % 11.5-14.5 Above high no rmal Red Cell Distribution Width [place] ([facility]) neutrophils % 60.3 % 36.0-66.0 Neutrophils % [place] ( [facility]) lymph % 26.1 % 24.0-44.0 Lymph % [place] ([facility]) mono % 5.9 % 0.0-5.0 Above high normal [place] % [place] ([facility]) eos % 6.9 % 0.0-3.0 Above high normal Eos % [place] ([facility]) baso % 0.3 % 0.0-1.0 Baso % [place] ([facility]) immature granulocyte % 0.5 % 0-3.0 Immature Gran ulocyte % [place] ([facility]) nucleated red blood cell % 0.0 % 0-0 Nucleated Red Blood Cell % [place] ([facility]) neutrophils # 5.7 10 1.5-8.5 Neutrophils # [place] ( [facility]) lymph # 2.5 10 1.5-5.0 Lymph # [place] ([facility]) mono # 0.6 10 0.0-0.8 [place] # [place] ([facility]) baso # 0.0 10 0.0-0.2 Baso # [place] ([facility]) eos # 0.7 10 0.0-0.5 Above high normal Eos # [place] ([facility]) ID Date Data Source [id number] 08/14/2020 05:29:00 AM EST [place] ([facility]) Name Value Range Interpretation Code Description Data Stephanie rce(s) Supporting Document(s) glucose, fasting 67 mg/dL 70-100 Below low normal Glucose, Fast ing [place] ([facility]) blood urea nitrogen 8 mg/dL 7-18 Blood Urea Nitro gen [place] ([facility]) creatinine for GFR 0.83 mg/dL 0.70-1.30 Creatinine for GF R [place] ([facility]) glomerular filtration rate > 60.0 >60 Glomerula r Filtration Rate [place] ([facility]) potassium serum 3.5 mEq/L 3.5-5.1 Potassium Serum ATHE NA ([facility]) sodium level 141 mEq/L 136-145 Sodium Level [place] ([facility]) chloride level 103 mEq/L 98-107 Chloride Level [place] ([facility]) carbon dioxide level 28 mEq/L 21-32 Carbon Dioxide Level [place] ([facility]) anion gap 10 mEq/L 8-16 Anion Gap [place] ([facility]) calcium level 8.7 mg/dL 8.5-10.1 Calcium Level [place] ( [facility]) ID Date Data Source [id number] 08/14/2020 05:29:00 AM EST [place] ([facility]) Name Value Range Interpretation Code Description Data Stephanie rce(s) Supporting Document(s) white blood count 9.5 10 4.0-10.0 White Blood Count [place] ([facility]) red blood count 4.92 10 4.30-6.10 Red Blood Count ATHE NA ([facility]) hematocrit 40.1 % 42.0-52.0 Below low normal Hematocrit [place] ( [facility]) hemoglobin 12.2 g/dL 13.5-17.5 Below low normal Hemoglobin [place] ( [facility]) mean corpuscular volume 81.5 fL 80.0-96.0 Mean Corpusc ular Volume [place] ([facility]) mean corpuscular hemoglobin 24.8 pg 27.0-33.0 Below low nor mal Mean Corpuscular Hemoglobin [place] ([facility]) mean corpuscular HGB conc 30.4 g/dL 32.0-36.5 Below low l[place] l Mean Corpuscular HGB Conc [place] ([facility]) red cell distribution width 15.1 % 11.5-14.5 Above high no rmal Red Cell Distribution Width [place] ([facility]) platelet count, automated 154 10 150-450 Platelet C ount, Automated [place] ([facility]) neutrophils % 60.3 % 36.0-66.0 Neutrophils % [place] ( [facility]) mono % 5.9 % 0.0-5.0 Above high normal [place] % [place] ([facility]) lymph % 26.1 % 24.0-44.0 Lymph % [place] ([facility]) eos % 6.9 % 0.0-3.0 Above high normal Eos % [place] ([facility]) baso % 0.3 % 0.0-1.0 Baso % [place] ([facility]) immature granulocyte % 0.5 % 0-3.0 Immature Gran ulocyte % [place] ([facility]) neutrophils # 5.7 10 1.5-8.5 Neutrophils # [place] ( [facility]) nucleated red blood cell % 0.0 % 0-0 Nucleated Red Blood Cell % [place] ([facility]) lymph # 2.5 10 1.5-5.0 Lymph # [place] ([facility]) eos # 0.7 10 0.0-0.5 Above high normal Eos # [place] ([facility]) mono # 0.6 10 0.0-0.8 [place] # [place] ([facility]) baso # 0.0 10 0.0-0.2 Baso # [place] ([facility]) ID Date Data Source [id number] 08/13/2020 12:33:00 PM EST [place] ([facility]) Name Value Range Interpretation Code Description Data Stephanie rce(s) Supporting Document(s) ID Date Data Source [id number] 08/13/2020 12:33:00 PM EST [place] ([facility]) Name Value Range Interpretation Code Description Data Stephanie rce(s) Supporting Document(s) ID Date Data Source [id number] 08/13/2020 12:33:00 PM EST [place] ([facility]) Name Value Range Interpretation Code Description Data Stephanie rce(s) Supporting Document(s) ID Date Data Source [id number] 08/13/2020 12:33:00 PM EST [place] ([facility]) Name Value Range Interpretation Code Description Data Stephanie rce(s) Supporting Document(s) ID Date Data Source [id number] 08/13/2020 12:33:00 PM EST [place] ([facility]) Name Value Range Interpretation Code Description Data Stephanie rce(s) Supporting Document(s) ID Date Data Source [id number] 08/13/2020 12:33:00 PM EST [place] ([facility]) Name Value Range Interpretation Code Description Data Stephanie rce(s) Supporting Document(s) ID Date Data Source [id number] 08/13/2020 12:33:00 PM EST [place] ([facility]) Name Value Range Interpretation Code Description Data Stephanie rce(s) Supporting Document(s) ID Date Data Source [id number] 08/13/2020 12:33:00 PM EST [place] ([facility]) Name Value Range Interpretation Code Description Data Stephanie rce(s) Supporting Document(s) ID Date Data Source [id number] 08/13/2020 12:33:00 PM EST [place] ([facility]) Name Value Range Interpretation Code Description Data Stephanie rce(s) Supporting Document(s) ID Date Data Source [id number] 08/12/2020 03:07:00 AM EST [facility]) Name Value Range Interpretation Code Description Data Stephanie rce(s) Supporting Document(s) influenza A amplification negative negative [facility] influenza B amplification negative negative Influenza B Amplification [facility]) RSV amplification negative negative RSV Amplification [place] ([facility]) sars covid-19 amplification negative negative Sars Cov id-19 [facility] ID Date Data Source [id number] 08/12/2020 03:07:00 AM EST [facility]) Name Value Range Interpretation Code Description Data Stephanie rce(s) Supporting Document(s) influenza B amplification negative negative Influenza B [facility] influenza A amplification negative negative [facility] RSV amplification [facility] negative RSV Amplification [place] ([facility]) sars covid-19 amplification negative negative Sars Cov id-19 [facility] ID Date Data Source [id number] 08/12/2020 03:07:00 AM EST [place] ([facility]) Name Value Range Interpretation Code Description Data Stephanie rce(s) Supporting Document(s) influenza A amplification negative negative Influenza a Amplification [place] ([facility]) influenza B amplification negative negative Influenza B Amplification [place] ([facility]) RSV amplification negative negative RSV Amplification [place] ([facility]) sars covid-19 amplification negative negative Sars Cov id-19 Amplification [facility]) ID Date Data Source [id number] 08/12/2020 03:07:00 AM EST [facility] Name Value Range Interpretation Code Description Data Stephanie rce(s) Supporting Document(s) SARS coronavirus 2 RNA [Presence] in Res piratory specimen by RHIANNA with probe detection NEGATIVE [facility] This lab was ordered by [facility] a nd reported by [facility]. ID Date Data Source [id number] 08/12/2020 12:17:00 AM EST [facility]) Name Value Range Interpretation Code Description Data Stephanie rce(s) Supporting Document(s) CPK creatine phosphokinase 121 U/L 39-308 CPK Creat ine Phosphokinase [place] ([facility]) CK-mb value mass 2.0 NG/mL <3.6 CK-mb Value Mass AT [place] ([facility]) troponin I < 0.02 < 0.10 Troponin I [place] ([facility]) mb/CK relative index < or =4 mb/CK Relative Index [place] ([facility]) ID Date Data Source [id number] 08/12/2020 12:17:00 AM EST [facility]) Name Value Range Interpretation Code Description Data Stephanie rce(s) Supporting Document(s) lipase 85 U/L 73-393 Lipase [place] ([facility]) ID Date Data Source [id number] 08/12/2020 12:17:00 AM EST [place] ([facility]) Name Value Range Interpretation Code Description Data Stephanie rce(s) Supporting Document(s) glucose, fasting 96 mg/dL 70-100 Glucose, Fasting AT [facility]) blood urea nitrogen 14 mg/dL 7-18 Blood Urea Nitro gen [place] ([facility]) glomerular filtration rate > 60.0 >60 Glomer[place] r Filtration Rate [place] ([facility]) creatinine for GFR 1.05 mg/dL 0.70-1.30 Creatinine for GF R [place] ([facility]) sodium level 139 mEq/L 136-145 Sodium Level [place] ([facility]) chloride level 100 mEq/L 98-107 Chloride Level [place] ([facility]) potassium serum 4.1 mEq/L 3.5-5.1 Potassium Serum [place] ([facility]) carbon dioxide level 31 mEq/L 21-32 Carbon Dioxide Level [place] ([facility]) anion gap 8 mEq/L 8-16 Anion Gap [place] ([facility]) calcium level 9.4 mg/dL 8.5-10.1 Calcium Level [place] ( [facility]) ID Date Data Source [id number] 08/12/2020 12:17:00 AM EST [place] ([facility]) Name Value Range Interpretation Code Description Data Stephanie rce(s) Supporting Document(s) AST/SGOT 51 U/L 7-37 Above high normal AST/SGOT [place] ([facility]) ALT/SGPT 119 U/L 12-78 Above high normal ALT/SGPT [place] ([facility]) alkaline phosphatase 189 U/L 45-117 Above high normal Alkaline Phosphatase [place] ([facility]) bilirubin,direct 0.2 mg/dL 0.0-0.2 Bilirubin,direct AT [facility] ([facility]) bilirubin,total 0.4 mg/dL 0.2-1.0 Bilirubin,total ATHE [facility]) total protein 7.9 gm/dL 6.4-8.2 Total Protein [place] ( [facility]) albumin/globulin ratio Albumin/globu sulma Ratio [place] ([facility]) albumin 3.6 gm/dL 3.2-5.2 Albumin [place] ([facility]) ID Date Data Source [id number] 08/12/2020 12:17:00 AM EST [place] ([facility]) Name Value Range Interpretation Code Description Data Stephanie rce(s) Supporting Document(s) white blood count 13.1 10 4.0-10.0 Above high normal White Blood Count [place] ([facility]) red blood count 5.82 10 4.30-6.10 Red Blood Count [place] ([facility]) hemoglobin 14.2 g/dL 13.5-17.5 Hemoglobin [place] ([facility]) hematocrit 46.5 % 42.0-52.0 Hematocrit [place] ([facility]) mean corpuscular volume 79.9 fL 80.0-96.0 Below low normal Mean Corpuscular Volume [place] ([facility]) mean corpuscular hemoglobin 24.4 pg 27.0-33.0 Below low nor mal Mean Corpuscular Hemoglobin [place] ([facility]) mean corpuscular HGB conc 30.5 g/dL 32.0-36.5 Below low [place] l Mean Corpuscular HGB Conc [place] ([facility]) red cell distribution width 15.6 % 11.5-14.5 Above high no rmal Red Cell Distribution Width [place] ([facility]) platelet count, automated 237 10 150-450 Platelet C ount, Automated [place] ([facility]) neutrophils % 69.3 % 36.0-66.0 Above high normal Neutrophils % A [place] ([facility]) lymph % 19.3 % 24.0-44.0 Below low normal Lymph % [place] ( [facility]) mono % 5.2 % 0.0-5.0 Above high normal [place] % [place] ([facility]) eos % 5.4 % 0.0-3.0 Above high normal Eos % [place] ([facility]) baso % 0.3 % 0.0-1.0 Baso % [place] ([facility]) immature granulocyte % 0.5 % 0-3.0 Immature Gran ulocyte % [place] ([facility]) nucleated red blood cell % 0.0 % 0-0 Nucleated Red Blood Cell % [place] ([facility]) neutrophils # 9.1 10 1.5-8.5 Above high normal Neutrophils # A THE[place] ([facility]) lymph # 2.5 10 1.5-5.0 Lymph # [place] ([facility]) mono # 0.7 10 0.0-0.8 [place] # [place] ([facility]) eos # 0.7 10 0.0-0.5 Above high normal Eos # [place] ([facility]) baso # 0.0 10 0.0-0.2 Baso # [place] ([facility]) ID Date Data Source [id number] 08/12/2020 12:17:00 AM EST [place] ([facility]) Name Value Range Interpretation Code Description Data Stephanie rce(s) Supporting Document(s) CK-mb value mass 2.0 NG/mL <3.6 CK-mb Value Mass AT [facility] ([facility]) CPK creatine phosphokinase 121 U/L 39-308 CPK Creat ine Phosphokinase [place] ([facility]) mb/CK relative index < or =4 mb/CK Relative Index [place] ([facility]) troponin I < 0.02 < 0.10 Troponin I [place] ([facility]) ID Date Data Source [id number] 08/12/2020 12:17:00 AM EST [place] ([facility]) Name Value Range Interpretation Code Description Data Stephanie rce(s) Supporting Document(s) lipase 85 U/L 73-393 Lipase [place] ([facility]) ID Date Data Source [id number] 08/12/2020 12:17:00 AM EST [place] ([facility]) Name Value Range Interpretation Code Description Data Stephanie rce(s) Supporting Document(s) glucose, fasting 96 mg/dL 70-100 Glucose, Fasting AT [facility] ([facility]) blood urea nitrogen 14 mg/dL 7-18 Blood Urea Nitro gen [place] ([facility]) creatinine for GFR 1.05 mg/dL 0.70-1.30 Creatinine for GF R [place] ([facility]) glomerular filtration rate > 60.0 >60 Glomerula r Filtration Rate [place] ([facility]) sodium level 139 mEq/L 136-145 Sodium Level [place] (No [facility]) potassium serum 4.1 mEq/L 3.5-5.1 Potassium Serum ATH NA ([facility]) chloride level 100 mEq/L 98-107 Chloride Level [place] ([facility]) carbon dioxide level 31 mEq/L 21-32 Carbon Dioxide Level [place] ([facility]) anion gap 8 mEq/L 8-16 Anion Gap [place] ([facility]) calcium level 9.4 mg/dL 8.5-10.1 Calcium Level [place] ( [facility]) ID Date Data Source [id number] 08/12/2020 12:17:00 AM EST [facility]) Name Value Range Interpretation Code Description Data Stephanie rce(s) Supporting Document(s) AST/SGOT 51 U/L 7-37 Above high normal [facility] ALT/SGPT 119 U/L 12-78 Above high normal ALT/SGPT [place] ([facility]) alkaline phosphatase 189 U/L 45-117 Above high normal Alkaline Phosphatase [place] ([facility]) bilirubin,total 0.4 mg/dL 0.2-1.0 Bilirubin,total ATHE [facility]) bilirubin,direct 0.2 mg/dL 0.0-0.2 Bilirubin,direct AT [facility] ([facility]) total protein 7.9 gm/dL 6.4-8.2 Total Protein [place] ( [facility]) albumin 3.6 gm/dL 3.2-5.2 Albumin [place] ([facility]) albumin/globulin ratio Albumin/globu sulma Ratio [place] ([facility]) ID Date Data Source [id number] 08/12/2020 12:17:00 AM EST [place] ([facility]) Name Value Range Interpretation Code Description Data Stephanie rce(s) Supporting Document(s) white blood count 13.1 10 4.0-10.0 Above high normal White Blood Count [place] ([facility]) red blood count 5.82 10 4.30-6.10 Red Blood Count ATHE NA ([facility]) hemoglobin 14.2 g/dL 13.5-17.5 Hemoglobin [place] ([facility]) hematocrit 46.5 % 42.0-52.0 Hematocrit [place] ([facility]) mean corpuscular hemoglobin 24.4 pg 27.0-33.0 Below low nor mal Mean Corpuscular Hemoglobin [place] ([facility]) mean corpuscular volume 79.9 fL 80.0-96.0 Below low normal Mean Corpuscular Volume [place] ([facility]) mean corpuscular HGB conc 30.5 g/dL 32.0-36.5 Below low l[place] l Mean Corpuscular HGB Conc [place] ([facility]) red cell distribution width 15.6 % 11.5-14.5 Above high no rmal Red Cell Distribution Width [place] ([facility]) platelet count, automated 237 10 150-450 Platelet C ount, Automated [place] ([facility]) neutrophils % 69.3 % 36.0-66.0 Above high normal Neutrophils % A THENA ([facility]) lymph % 19.3 % 24.0-44.0 Below low normal Lymph % [place] ( [facility]) mono % 5.2 % 0.0-5.0 Above high normal [place] % [place] ([facility]) eos % 5.4 % 0.0-3.0 Above high normal Eos % [place] ([facility]) baso % 0.3 % 0.0-1.0 Baso % [place] ([facility]) immature granulocyte % 0.5 % 0-3.0 Immature Gran ulocyte % [place] ([facility]) neutrophils # 9.1 10 1.5-8.5 Above high normal Neutrophils # A THENA ([facility]) nucleated red blood cell % 0.0 % 0-0 Nucleated Red Blood Cell % [place] ([facility]) mono # 0.7 10 0.0-0.8 [place] # [place] ([facility]) lymph # 2.5 10 1.5-5.0 Lymph # [place] ([facility]) eos # 0.7 10 0.0-0.5 Above high normal Eos # [place] ([facility]) baso # 0.0 10 0.0-0.2 Baso # [place] ([facility] [facility]) ID Date Data Source [id number] 08/12/2020 12:17:00 AM EST [place] ([facility]) Name Value Range Interpretation Code Description Data Stephanie rce(s) Supporting Document(s) CK-mb value mass 2.0 NG/mL <3.6 CK-mb Value Mass AT [place] ([facility]) CPK creatine phosphokinase 121 U/L 39-308 CPK Creat ine Phosphokinase [place] ([facility]) mb/CK relative index < or =4 mb/CK Relative Index [place] ([facility]) troponin I < 0.02 < 0.10 Troponin I [place] ([facility]) ID Date Data Source [id number] 08/12/2020 12:17:00 AM EST [place] ([facility]) Name Value Range Interpretation Code Description Data Stephanie rce(s) Supporting Document(s) lipase 85 U/L 73-393 Lipase [place] ([facility]) ID Date Data Source [id number] 08/12/2020 12:17:00 AM EST [place] ([facility]) Name Value Range Interpretation Code Description Data Stephanie rce(s) Supporting Document(s) glucose, fasting 96 mg/dL 70-100 Glucose, Fasting AT [facility] ([facility]) blood urea nitrogen 14 mg/dL 7-18 Blood Urea Nitro gen [place] ([facility]) creatinine for GFR 1.05 mg/dL 0.70-1.30 Creatinine for GF R [place] ([facility]) glomerular filtration rate > 60.0 >60 Glomerula r Filtration Rate [place] ([facility]) sodium level 139 mEq/L 136-145 Sodium Level [place] ([facility]) potassium serum 4.1 mEq/L 3.5-5.1 Potassium Serum ATH NA ([facility]) chloride level 100 mEq/L 98-107 Chloride Level [place] ([facility]) anion gap 8 mEq/L 8-16 Anion Gap [place] ([facility]) carbon dioxide level 31 mEq/L 21-32 Carbon Dioxide Level [place] ([facility]) calcium level 9.4 mg/dL 8.5-10.1 Calcium Level [place] ( [facility]) ID Date Data Source [id number] 08/12/2020 12:17:00 AM EST [place] ([facility]) Name Value Range Interpretation Code Description Data Stephanie rce(s) Supporting Document(s) AST/SGOT 51 U/L 7-37 Above high normal AST/SGOT [place] ([facility]) ALT/SGPT 119 U/L 12-78 Above high normal ALT/SGPT [place] ([facility]) alkaline phosphatase 189 U/L 45-117 Above high normal Alkaline Phosphatase [place] ([facility]) bilirubin,total 0.4 mg/dL 0.2-1.0 Bilirubin,total ATHE [facility]) total protein 7.9 gm/dL 6.4-8.2 Total Protein [place] ( [facility]) bilirubin,direct 0.2 mg/dL 0.0-0.2 Bilirubin,direct AT [facility] ([facility]) albumin/globulin ratio Albumin/globu sulma Ratio [place] ([facility]) albumin 3.6 gm/dL 3.2-5.2 Albumin [place] ([facility]) ID Date Data Source [id number] 08/12/2020 12:17:00 AM EST [place] ([facility]) Name Value Range Interpretation Code Description Data Stephanie rce(s) Supporting Document(s) white blood count 13.1 10 4.0-10.0 Above high normal White Blood Count [place] ([facility]) red blood count 5.82 10 4.30-6.10 Red Blood Count ATHE NA ([facility]) hemoglobin 14.2 g/dL 13.5-17.5 Hemoglobin [place] ([facility]) hematocrit 46.5 % 42.0-52.0 Hematocrit [place] ([facility]) mean corpuscular volume 79.9 fL 80.0-96.0 Below low normal Mean Corpuscular Volume [place] ([facility]) mean corpuscular HGB conc 30.5 g/dL 32.0-36.5 Below low [place] Mean Corpuscular HGB Conc [place] ([facility]) mean corpuscular hemoglobin 24.4 pg 27.0-33.0 Below low nor mal Mean Corpuscular Hemoglobin [place] ([facility]) red cell distribution width 15.6 % 11.5-14.5 Above high no rmal Red Cell Distribution Width [place] ([facility]) platelet count, automated 237 10 150-450 Platelet C ount, Automated [place] ([facility]) neutrophils % 69.3 % 36.0-66.0 Above high normal Neutrophils % A [place] ([facility]) mono % 5.2 % 0.0-5.0 Above high normal [place] % [place] ([facility]) lymph % 19.3 % 24.0-44.0 Below low normal Lymph % [place] ( [facility]) eos % 5.4 % 0.0-3.0 Above high normal Eos % [place] ([facility]) immature granulocyte % 0.5 % 0-3.0 Immature Gran ulocyte % [place] ([facility]) baso % 0.3 % 0.0-1.0 Baso % [place] ([facility]) nucleated red blood cell % 0.0 % 0-0 Nucleated Red Blood Cell % [place] ([facility]) lymph # 2.5 10 1.5-5.0 Lymph # [place] ([facility]) neutrophils # 9.1 10 1.5-8.5 Above high normal Neutrophils # A [place] ([facility]) eos # 0.7 10 0.0-0.5 Above high normal Eos # [place] ([facility]) mono # 0.7 10 0.0-0.8 [place] # [place] ([facility]) baso # 0.0 10 0.0-0.2 Baso # [place] ([facility]) ID Date Data Source [id number] 08/04/2020 06:27:00 AM EST [place] ([facility]) Name Value Range Interpretation Code Description Data Stephanie rce(s) Supporting Document(s) glucose, fasting 105 mg/dL 70-100 Above high normal Glucose, Fas ting [place] ([facility]) blood urea nitrogen 12 mg/dL 7-18 Blood Urea Nitro gen [place] ([facility]) glomerular filtration rate > 60.0 >60 Glomerula r Filtration Rate [place] ([facility]) creatinine for GFR 0.94 mg/dL 0.70-1.30 Creatinine for GF R [place] ([facility]) sodium level 140 mEq/L 136-145 Sodium Level [place] ([facility]) potassium serum 4.1 mEq/L 3.5-5.1 Potassium Serum ATHE NA ([facility]) chloride level 104 mEq/L 98-107 Chloride Level [place] ([facility]) carbon dioxide level 30 mEq/L 21-32 Carbon Dioxide Level [place] ([facility]) anion gap 6 mEq/L 8-16 Below low normal Anion Gap [place] ( [facility]) calcium level 8.9 mg/dL 8.5-10.1 Calcium Level [place] ( [facility]) ID Date Data Source [id number] 08/04/2020 06:27:00 AM EST [place] ([facility]) Name Value Range Interpretation Code Description Data Stephanie rce(s) Supporting Document(s) white blood count 12.1 10 4.0-10.0 Above high normal White Blood Count [place] ([facility]) red blood count 4.98 10 4.30-6.10 Red Blood Count ATHE NA ([facility]) hemoglobin 12.5 g/dL 13.5-17.5 Below low normal Hemoglobin [place] ( [facility]) mean corpuscular volume 80.7 fL 80.0-96.0 Mean Corpusc ular Volume [place] ([facility]) hematocrit 40.2 % 42.0-52.0 Below low normal Hematocrit [place] ( [facility]) mean corpuscular HGB conc 31.1 g/dL 32.0-36.5 Below low l[place] l Mean Corpuscular HGB Conc [place] ([facility]) mean corpuscular hemoglobin 25.1 pg 27.0-33.0 Below low nor mal Mean Corpuscular Hemoglobin [place] ([facility]) red cell distribution width 15.5 % 11.5-14.5 Above high no rmal Red Cell Distribution Width [place] ([facility]) platelet count, automated 184 10 150-450 Platelet C ount, Automated [place] ([facility]) lymph % 15.2 % 24.0-44.0 Below low normal Lymph % [place] ( [facility]) neutrophils % 78.9 % 36.0-66.0 Above high normal Neutrophils % A [place] ([facility]) eos % 1.4 % 0.0-3.0 Eos % [place] ([facility]) mono % 4.0 % 0.0-5.0 [place] % [place] ([facility]) immature granulocyte % 0.3 % 0-3.0 Immature Gran ulocyte % [place] ([facility]) baso % 0.2 % 0.0-1.0 Baso % [place] ([facility]) neutrophils # 9.5 10 1.5-8.5 Above high normal Neutrophils # A [place] ([facility]) nucleated red blood cell % 0.0 % 0-0 Nucleated Red Blood Cell % [place] ([facility]) lymph # 1.8 10 1.5-5.0 Lymph # [place] ([facility]) mono # 0.5 10 0.0-0.8 [place] # [place] ([facility]) eos # 0.2 10 0.0-0.5 Eos # [place] ([facility]) baso # 0.0 10 0.0-0.2 Baso # [place] ([facility]) ID Date Data Source [id number] 08/04/2020 06:27:00 AM EST [place] ([facility]) Name Value Range Interpretation Code Description Data Stephanie rce(s) Supporting Document(s) glucose, fasting 105 mg/dL 70-100 Above high normal Glucose, Fas ting [place] ([facility]) creatinine for GFR 0.94 mg/dL 0.70-1.30 Creatinine for GF R [place] ([facility]) blood urea nitrogen 12 mg/dL 7-18 Blood Urea Nitro gen [place] ([facility]) glomerular filtration rate > 60.0 >60 Glomerula r Filtration Rate [place] ([facility]) potassium serum 4.1 mEq/L 3.5-5.1 Potassium Serum ATHE NA ([facility]) sodium level 140 mEq/L 136-145 Sodium Level [place] (No [facility]) chloride level 104 mEq/L 98-107 Chloride Level [place] ([facility]) carbon dioxide level 30 mEq/L 21-32 Carbon Dioxide Level [place] ([facility]) anion gap 6 mEq/L 8-16 Below low normal Anion Gap [place] ( [facility]) calcium level 8.9 mg/dL 8.5-10.1 Calcium Level [place] ( [facility]) ID Date Data Source [id number] 08/04/2020 06:27:00 AM EST [place] ([facility]) Name Value Range Interpretation Code Description Data Stephanie rce(s) Supporting Document(s) white blood count 12.1 10 4.0-10.0 Above high normal White Blood Count [place] ([facility]) red blood count 4.98 10 4.30-6.10 Red Blood Count ATHE NA ([facility]) hemoglobin 12.5 g/dL 13.5-17.5 Below low normal Hemoglobin [place] ( [facility]) hematocrit 40.2 % 42.0-52.0 Below low normal Hematocrit [place] ( [facility]) mean corpuscular hemoglobin 25.1 pg 27.0-33.0 Below low nor mal Mean Corpuscular Hemoglobin [place] ([facility]) mean corpuscular volume 80.7 fL 80.0-96.0 Mean Corpusc ular Volume [place] ([facility]) mean corpuscular HGB conc 31.1 g/dL 32.0-36.5 Below low l[place] l Mean Corpuscular HGB Conc [place] ([facility]) red cell distribution width 15.5 % 11.5-14.5 Above high no rmal Red Cell Distribution Width [place] ([facility]) platelet count, automated 184 10 150-450 Platelet C ount, Automated [place] ([facility]) neutrophils % 78.9 % 36.0-66.0 Above high normal Neutrophils % A [facility] ([facility]) lymph % 15.2 % 24.0-44.0 Below low normal Lymph % [place] ( [facility]) mono % 4.0 % 0.0-5.0 [place] % [place] ([facility]) eos % 1.4 % 0.0-3.0 Eos % [place] ([facility]) immature granulocyte % 0.3 % 0-3.0 Immature Gran ulocyte % [place] ([facility]) baso % 0.2 % 0.0-1.0 Baso % [place] ([facility]) nucleated red blood cell % 0.0 % 0-0 Nucleated Red Blood Cell % [place] ([facility]) neutrophils # 9.5 10 1.5-8.5 Above high normal Neutrophils # [facility] lymph # 1.8 10 1.5-5.0 Lymph # [place] ([facility]) mono # 0.5 10 0.0-0.8 [place] # [place] ([facility]) eos # 0.2 10 0.0-0.5 Eos # [place] ([facility]) baso # 0.0 10 0.0-0.2 Baso # [place] ([facility]) ID Date Data Source [id number] 08/04/2020 06:27:00 AM EST [place] ([facility]) Name Value Range Interpretation Code Description Data Stephanie rce(s) Supporting Document(s) blood urea nitrogen 12 mg/dL 7-18 Blood Urea Nitro gen [place] ([facility]) glucose, fasting 105 mg/dL 70-100 Above high normal Glucose, Fas ting [place] ([facility]) glomerular filtration rate > 60.0 >60 Glomerula r Filtration Rate [place] ([facility]) creatinine for GFR 0.94 mg/dL 0.70-1.30 Creatinine for GF R [place] ([facility]) potassium serum 4.1 mEq/L 3.5-5.1 Potassium Serum ATHE NA ([facility]) sodium level 140 mEq/L 136-145 Sodium Level [place] ([facility]) anion gap 6 mEq/L 8-16 Below low normal Anion Gap [place] ( [facility]) chloride level 104 mEq/L 98-107 Chloride Level [place] ([facility]) carbon dioxide level 30 mEq/L 21-32 Carbon Dioxide Level [place] ([facility]) calcium level 8.9 mg/dL 8.5-10.1 Calcium Level [place] ( [facility]) ID Date Data Source [id number] 08/04/2020 06:27:00 AM EST [place] ([facility]) Name Value Range Interpretation Code Description Data Stephanie rce(s) Supporting Document(s) white blood count 12.1 10 4.0-10.0 Above high normal White Blood Count [place] ([facility]) red blood count 4.98 10 4.30-6.10 Red Blood Count ATHE NA ([facility]) hemoglobin 12.5 g/dL 13.5-17.5 Below low normal Hemoglobin [place] ( [facility]) hematocrit 40.2 % 42.0-52.0 Below low normal Hematocrit [place] ( [facility]) mean corpuscular hemoglobin 25.1 pg 27.0-33.0 Below low nor mal Mean Corpuscular Hemoglobin [place] ([facility]) mean corpuscular volume 80.7 fL 80.0-96.0 Mean Corpusc ular Volume [place] ([facility]) mean corpuscular HGB conc 31.1 g/dL 32.0-36.5 Below low [place] l Mean Corpuscular HGB Conc [place] ([facility]) red cell distribution width 15.5 % 11.5-14.5 Above high no rmal Red Cell Distribution Width [place] ([facility]) neutrophils % 78.9 % 36.0-66.0 Above high normal Neutrophils % A [facility] ([facility]) platelet count, automated 184 10 150-450 Platelet C ount, Automated [place] ([facility]) mono % 4.0 % 0.0-5.0 [place] % [place] ([facility]) lymph % 15.2 % 24.0-44.0 Below low normal Lymph % [place] ( [facility]) baso % 0.2 % 0.0-1.0 Baso % [place] ([facility]) eos % 1.4 % 0.0-3.0 Eos % [place] ([facility]) nucleated red blood cell % 0.0 % 0-0 Nucleated Red Blood Cell % [place] ([facility]) neutrophils # 9.5 10 1.5-8.5 Above high normal Neutrophils # A [place] ([facility]) immature granulocyte % 0.3 % 0-3.0 Immature Gran ulocyte % [place] ([facility]) mono # 0.5 10 0.0-0.8 [place] # [place] ([facility]) lymph # 1.8 10 1.5-5.0 Lymph # [place] ([facility]) baso # 0.0 10 0.0-0.2 Baso # [place] ([facility]) eos # 0.2 10 0.0-0.5 Eos # [place] ([facility]) ID Date Data Source [id number] 08/03/2020 02:09:00 PM EST [place] ([facility]) Name Value Range Interpretation Code Description Data Stephanie rce(s) Supporting Document(s) ID Date Data Source [id number] 08/03/2020 02:09:00 PM EST [place] ([facility]) Name Value Range Interpretation Code Description Data Stephanie rce(s) Supporting Document(s) ID Date Data Source [id number] 08/03/2020 02:09:00 PM EST [place] ([facility]) Name Value Range Interpretation Code Description Data Stephanie rce(s) Supporting Document(s) ID Date Data Source [id number] 08/03/2020 02:09:00 PM EST [place] ([facility]) Name Value Range Interpretation Code Description Data Stephanie rce(s) Supporting Document(s) ID Date Data Source [id number] 08/03/2020 02:09:00 PM EST [place] ([facility]) Name Value Range Interpretation Code Description Data Stephanie rce(s) Supporting Document(s) ID Date Data Source [id number] 08/03/2020 02:09:00 PM EST [place] ([facility]) Name Value Range Interpretation Code Description Data Stephanie rce(s) Supporting Document(s) ID Date Data Source [id number] 08/03/2020 02:09:00 PM EST [place] ([facility]) Name Value Range Interpretation Code Description Data Stephanie rce(s) Supporting Document(s) ID Date Data Source [id number] 08/03/2020 02:09:00 PM EST [place] ([facility]) Name Value Range Interpretation Code Description Data Stephanie rce(s) Supporting Document(s) ID Date Data Source [id number] 08/03/2020 02:09:00 PM EST [place] ([facility]) Name Value Range Interpretation Code Description Data Stephanie rce(s) Supporting Document(s) ID Date Data Source [id number] 08/03/2020 02:09:00 PM EST [place] ([facility]) Name Value Range Interpretation Code Description Data Stephanie rce(s) Supporting Document(s) ID Date Data Source [id number] 08/03/2020 02:09:00 PM EST [place] ([facility]) Name Value Range Interpretation Code Description Data Stephanie rce(s) Supporting Document(s) ID Date Data Source [id number] 08/03/2020 02:09:00 PM EST [place] ([facility]) Name Value Range Interpretation Code Description Data Stephanie rce(s) Supporting Document(s) ID Date Data Source [id number] 07/29/2020 09:00:00 AM EST [facility] Name Value Range Interpretation Code Description Data Stephanie rce(s) Supporting Document(s) SARS coronavirus 2 RNA Not Detected [facility] [place] This lab was ordered by [facility] and reported by [facility]. ID Date Data Source [id number] 07/26/2020 02:20:00 PM EST [place] ([facility]) Name Value Range Interpretation Code Description Data Stephanie rce(s) Supporting Document(s) Rate & Rhythm Rate & Rhythm [place] ([facility]) QRS Qrs [place] ([facility]) MT Interval MT Interval [place] ([facility]) QRS Duration QRS Duration [place] ([facility]) QT Interval QT Interval [place] ([facility]) ID Date Data Source [id number] 07/26/2020 02:20:00 PM EST [place] ([facility]) Name Value Range Interpretation Code Description Data Stephanie rce(s) Supporting Document(s) Rate & Rhythm Rate & Rhythm [place] ([facility]) QRS Duration QRS Duration [place] ([facility]) QRS Qrs [place] ([facility]) MT Interval MT Interval [place] ([facility]) QT Interval QT Interval [place] ([facility]) ID Date Data Source [id number] 07/26/2020 02:20:00 PM EST [place] ([facility]) Name Value Range Interpretation Code Description Data Stephanie rce(s) Supporting Document(s) Rate & Rhythm Rate & Rhythm [place] ([facility]) QRS Qrs [place] ([facility]) MT Interval MT Interval [place] ([facility]) QRS Duration QRS Duration [place] ([facility]) QT Interval QT Interval [place] ([facility]) ID Date Data Source [id number] 07/26/2020 09:50:00 AM EST [place] ([facility]) Name Value Range Interpretation Code Description Data Stephanie rce(s) Supporting Document(s) iron (fe) 41 ug/dL 65-175 Below low normal Iron (Fe) [place] ( [facility]) ID Date Data Source [id number] 07/26/2020 09:50:00 AM EST [place] [facility]) Name Value Range Interpretation Code Description Data Stephanie rce(s) Supporting Document(s) white blood count 7.3 10 4.0-10.0 White Blood Count [place] ([facility]) red blood count 5.29 10 4.30-6.10 Red Blood Count ATHE NA ([facility]) hematocrit 43.3 % 42.0-52.0 Hematocrit [place] ([facility]) hemoglobin 13.2 g/dL 13.5-17.5 Below low normal Hemoglobin [place] ( [facility]) mean corpuscular hemoglobin 25.0 pg 27.0-33.0 Below low nor mal Mean Corpuscular Hemoglobin [place] ([facility]) mean corpuscular volume 81.9 fL 80.0-96.0 Mean Corpusc ular Volume [place] ([facility]) mean corpuscular HGB conc 30.5 g/dL 32.0-36.5 Below low [place] l Mean Corpuscular HGB Conc [place] ([facility]) red cell distribution width 15.7 % 11.5-14.5 Above high no rmal Red Cell Distribution Width [place] ([facility]) neutrophils % 66.1 % 36.0-66.0 Above high normal Neutrophils % A [place] ([facility]) platelet count, automated 170 10 150-450 Platelet C ount, Automated [place] ([facility]) mono % 4.1 % 0.0-5.0 [place] % [place] ([facility]) lymph % 23.8 % 24.0-44.0 Below low normal Lymph % [place] ( [facility]) eos % 5.2 % 0.0-3.0 Above high normal Eos % [place] ([facility]) baso % 0.4 % 0.0-1.0 Baso % [place] ([facility]) immature granulocyte % 0.4 % 0-3.0 Immature Gran ulocyte % [place] ([facility]) neutrophils # 4.8 10 1.5-8.5 Neutrophils # [place] ( [facility]) nucleated red blood cell % 0.0 % 0-0 Nucleated Red Blood Cell % [place] ([facility]) mono # 0.3 10 0.0-0.8 [place] # [place] ([facility]) lymph # 1.7 10 1.5-5.0 Lymph # [place] ([facility]) baso # 0.0 10 0.0-0.2 Baso # [place] ([facility]) eos # 0.4 10 0.0-0.5 Eos # [facility] [facility] [facility] ID Date Data Source [id number] 07/26/2020 09:50:00 AM EST FREIDA ([facility]) Name Value Range Interpretation Code Description Data Stephanie rce(s) Supporting Document(s) iron (fe) 41 ug/dL 65-175 Below low normal Iron (Fe) FREIDA ( [facility]) ID Date Data Source [id number] 07/26/2020 09:50:00 AM EST FREIDA ([facility]) Name Value Range Interpretation Code Description Data Stephanie rce(s) Supporting Document(s) white blood count 7.3 10 4.0-10.0 White Blood Count FREIDA ([facility]) red blood count 5.29 10 4.30-6.10 Red Blood Count ATHE NA ([facility]) hemoglobin 13.2 g/dL 13.5-17.5 Below low normal Hemoglobin FREIDA ( [facility]) mean corpuscular volume 81.9 fL 80.0-96.0 Mean Corpusc ular Volume FREIDA ([facility]) hematocrit 43.3 % 42.0-52.0 Hematocrit FREIDA ([facility]) mean corpuscular hemoglobin 25.0 pg 27.0-33.0 Below low nor mal Mean Corpuscular Hemoglobin FREIDA ([facility]) mean corpuscular HGB conc 30.5 g/dL 32.0-36.5 Below low luis [place]ipe l Mean Corpuscular HGB Conc FREIDA ([facility]) red cell distribution width 15.7 % 11.5-14.5 Above high no rmal Red Cell Distribution Width FREIDA ([facility]) platelet count, automated 170 10 150-450 Platelet C ount, Automated FREIDA ([facility]) neutrophils % 66.1 % 36.0-66.0 Above high normal Neutrophils % A THENA ([facility]) lymph % 23.8 % 24.0-44.0 Below low normal Lymph % FREIDA ( [facility]) mono % 4.1 % 0.0-5.0 [place] % FREIDA ([facility]) eos % 5.2 % 0.0-3.0 Above high normal Eos % FREIDA ([facility]) baso % 0.4 % 0.0-1.0 Baso % FREIDA ([facility]) nucleated red blood cell % 0.0 % 0-0 Nucleated Red Blood Cell % FREIDA ([facility]) immature granulocyte % 0.4 % 0-3.0 Immature Gran ulocyte % FREIDA ([facility]) neutrophils # 4.8 10 1.5-8.5 Neutrophils # FREIDA ( [facility]) lymph # 1.7 10 1.5-5.0 Lymph # FREIDA ([facility]) mono # 0.3 10 0.0-0.8 [place] # FREIDA ([facility]) eos # 0.4 10 0.0-0.5 Eos # FREIDA ([facility]) baso # 0.0 10 0.0-0.2 Baso # FREIDA ([facility]) ID Date Data Source [id number] 07/26/2020 09:50:00 AM EST FREIDA ([facility]) Name Value Range Interpretation Code Description Data Stephanie rce(s) Supporting Document(s) iron (fe) 41 ug/dL 65-175 Below low normal Iron (Fe) FREIDA ( [facility]) ID Date Data Source [id number] 07/26/2020 09:50:00 AM EST FREIDA ([facility]) Name Value Range Interpretation Code Description Data Stephanie rce(s) Supporting Document(s) red blood count 5.29 10 4.30-6.10 Red Blood Count ATHE NA ([facility]) white blood count 7.3 10 4.0-10.0 White Blood Count FREIDA ([facility]) hematocrit 43.3 % 42.0-52.0 Hematocrit FREIDA ([facility]) hemoglobin 13.2 g/dL 13.5-17.5 Below low normal Hemoglobin FREIDA ( [facility]) mean corpuscular volume 81.9 fL 80.0-96.0 Mean Corpusc ular Volume FREIDA ([facility]) mean corpuscular hemoglobin 25.0 pg 27.0-33.0 Below low nor mal Mean Corpuscular Hemoglobin FREIDA ([facility]) mean corpuscular HGB conc 30.5 g/dL 32.0-36.5 Below low luis [place]ipe l Mean Corpuscular HGB Conc FREIDA ([facility]) red cell distribution width 15.7 % 11.5-14.5 Above high no rmal Red Cell Distribution Width FREIDA ([facility]) platelet count, automated 170 10 150-450 Platelet C ount, Automated FREIDA ([facility]) lymph % 23.8 % 24.0-44.0 Below low normal Lymph % FREIDA ( [facility]) neutrophils % 66.1 % 36.0-66.0 Above high normal Neutrophils % A THENA ([facility]) eos % 5.2 % 0.0-3.0 Above high normal Eos % [place] ([facility]) baso % 0.4 % 0.0-1.0 Baso % FREIDA ([facility]) mono % 4.1 % 0.0-5.0 [place] % FREIDA ([facility]) nucleated red blood cell % 0.0 % 0-0 Nucleated Red Blood Cell % FREIDA ([facility]) immature granulocyte % 0.4 % 0-3.0 Immature Gran ulocyte % FREIDA ([facility]) neutrophils # 4.8 10 1.5-8.5 Neutrophils # [place] ( [facility]) lymph # 1.7 10 1.5-5.0 Lymph # FREIDA ([facility]) mono # 0.3 10 0.0-0.8 [place] # FREIDA ([facility]) baso # 0.0 10 0.0-0.2 Baso # FREIDA ([facility]) eos # 0.4 10 0.0-0.5 Eos # [place]IDA ([facility]) ID Date Data Source [id number] 06/05/2020 09:37:00 PM EST FREIDA ([facility]) Name Value Range Interpretation Code Description Data Stephanie rce(s) Supporting Document(s) lipase 90 U/L 73-393 Lipase [place] ([facility]) ID Date Data Source [id number] 06/05/2020 09:37:00 PM EST FREIDA ([facility]) Name Value Range Interpretation Code Description Data Stephanie rce(s) Supporting Document(s) blood urea nitrogen 11 mg/dL 7-18 Blood Urea Nitro gen [place] ([facility]) glucose, fasting 84 mg/dL 70-100 Glucose, Fasting AT [facility]) creatinine for GFR 0.96 mg/dL 0.70-1.30 Creatinine for GF R [place] ([facility]) glomerular filtration rate > 60.0 >60 Glomerula r Filtration Rate [place] ([facility]) potassium serum 4.2 mEq/L 3.5-5.1 Potassium Serum ATHE NA ([facility]) chloride level 103 mEq/L 98-107 Chloride Level [place] ([facility]) sodium level 140 mEq/L 136-145 Sodium Level FREIDA ([facility]) anion gap 7 mEq/L 8-16 Below low normal Anion Gap FREIDA ( [facility]) carbon dioxide level 30 mEq/L 21-32 Carbon Dioxide Level FREIDA ([facility]) calcium level 8.8 mg/dL 8.5-10.1 Calcium Level [place] ( [facility]) ID Date Data Source [id number] 06/05/2020 09:37:00 PM EST FREIDA ([facility]) Name Value Range Interpretation Code Description Data Stephanie rce(s) Supporting Document(s) AST/SGOT 21 U/L 7-37 AST/SGOT [place] ([facility]) ALT/SGPT 29 U/L 12-78 ALT/SGPT [place] ([facility]) bilirubin,total 0.3 mg/dL 0.2-1.0 Bilirubin,total ATHE ([facility]) alkaline phosphatase 132 U/L 45-117 Above high normal Alkaline Phosphatase FREIDA ([facility]) bilirubin,direct < 0.1 0.0-0.2 Bilirubin,direct AT [place] ([facility]) albumin 3.5 gm/dL 3.2-5.2 Albumin [place] ([facility]) total protein 7.5 gm/dL 6.4-8.2 Total Protein [place] ( [facility]) albumin/globulin ratio Albumin/globu sulma Ratio [place] ([facility]) ID Date Data Source [id number] 06/05/2020 09:37:00 PM EST FRE[place] ([facility]) Name Value Range Interpretation Code Description Data Stephanie rce(s) Supporting Document(s) white blood count 9.9 10 4.0-10.0 White Blood Count FREIDA ([facility]) hemoglobin 12.4 g/dL 13.5-17.5 Below low normal Hemoglobin FREIDA ( [facility]) red blood count 5.01 10 4.30-6.10 Red Blood Count ATHE ([facility]) mean corpuscular hemoglobin 24.8 pg 27.0-33.0 Below low nor mal Mean Corpuscular Hemoglobin FREIDA ([facility]) hematocrit 40.5 % 42.0-52.0 Below low normal Hematocrit FREIDA ( [facility]) mean corpuscular volume 80.8 fL 80.0-96.0 Mean Corpusc ular Volume FREIDA ([facility]) platelet count, automated 168 10 150-450 Platelet C ount, Automated F[place] ([facility]) red cell distribution width 15.3 % 11.5-14.5 Above high no rmal Red Cell Distribution Width FREIDA ([facility]) mean corpuscular HGB conc 30.6 g/dL 32.0-36.5 Below low l[place] l Mean Corpuscular HGB Conc FREIDA ([facility]) lymph % 23.4 % 24.0-44.0 Below low normal Lymph % FREIDA ( [facility]) neutrophils % 68.0 % 36.0-66.0 Above high normal Neutrophils % A THENA ([facility]) baso % 0.3 % 0.0-1.0 Baso % FREIDA ([facility]) eos % 2.8 % 0.0-3.0 Eos % FREIDA ([facility]) mono % 5.1 % 0.0-5.0 Above high normal [place] % FREIDA ([facility]) immature granulocyte % 0.4 % 0-3.0 Immature Gran ulocyte % FREIDA ([facility]) neutrophils # 6.8 10 1.5-8.5 Neutrophils # FREIDA ( [facility]) nucleated red blood cell % 0.0 % 0-0 Nucleated Red Blood Cell % FREIDA ([facility]) mono # 0.5 10 0.0-0.8 [place] # FREIDA ([facility]) lymph # 2.3 10 1.5-5.0 Lymph # FREIDA ([facility]) eos # 0.3 10 0.0-0.5 Eos # [place]IDA ([facility]) baso # 0.0 10 0.0-0.2 Baso # [place]IDA ([facility]) ID Date Data Source [id number] 06/05/2020 09:37:00 PM EST FREIDA ([facility]) Name Value Range Interpretation Code Description Data Stephanie rce(s) Supporting Document(s) lipase 90 U/L 73-393 Lipase [place] ([facility]) ID Date Data Source [id number] 06/05/2020 09:37:00 PM EST FREIDA ([facility]) Name Value Range Interpretation Code Description Data Stephanie rce(s) Supporting Document(s) glucose, fasting 84 mg/dL 70-100 Glucose, Fasting AT [facility] ([facility]) creatinine for GFR 0.96 mg/dL 0.70-1.30 Creatinine for GF R FREIDA ([facility]) blood urea nitrogen 11 mg/dL 7-18 Blood Urea Nitro gen FREIDA ([facility]) glomerular filtration rate > 60.0 >60 Glomerula r Filtration Rate FREIDA ([facility]) potassium serum 4.2 mEq/L 3.5-5.1 Potassium Serum ATHE ([facility]) sodium level 140 mEq/L 136-145 Sodium Level FREIDA (No [facility]) anion gap 7 mEq/L 8-16 Below low normal Anion Gap FREIDA ( [facility]) carbon dioxide level 30 mEq/L 21-32 Carbon Dioxide Level FREIDA ([facility]) chloride level 103 mEq/L 98-107 Chloride Level F[place] ([facility]) calcium level 8.8 mg/dL 8.5-10.1 Calcium Level FREIDA ( [facility]) ID Date Data Source [id number] 06/05/2020 09:37:00 PM EST FREIDA ([facility]) Name Value Range Interpretation Code Description Data Stephanie rce(s) Supporting Document(s) AST/SGOT 21 U/L 7-37 AST/SGOT [place] ([facility]) alkaline phosphatase 132 U/L 45-117 Above high normal Alkaline Phosphatase FREIDA ([facility]) ALT/SGPT 29 U/L 12-78 ALT/SGPT [place] ([facility]) bilirubin,total 0.3 mg/dL 0.2-1.0 Bilirubin,total ATHE ([facility]) bilirubin,direct < 0.1 0.0-0.2 Bilirubin,direct AT [facility] ([facility]) total protein 7.5 gm/dL 6.4-8.2 Total Protein F[place]IDA ( [facility]) albumin 3.5 gm/dL 3.2-5.2 Albumin [place] ([facility]) albumin/globulin ratio Albumin/globu sulma Ratio FREIDA ([facility]) ID Date Data Source [id number] 06/05/2020 09:37:00 PM EST FRE[place] ([facility]) Name Value Range Interpretation Code Description Data Stehpanie rce(s) Supporting Document(s) white blood count 9.9 10 4.0-10.0 White Blood Count FREIDA ([facility]) red blood count 5.01 10 4.30-6.10 Red Blood Count ATHE NA ([facility]) hematocrit 40.5 % 42.0-52.0 Below low normal Hematocrit FREIDA ( [facility]) hemoglobin 12.4 g/dL 13.5-17.5 Below low normal Hemoglobin FREIDA ( [facility]) mean corpuscular HGB conc 30.6 g/dL 32.0-36.5 Below low luis [place] l Mean Corpuscular HGB Conc FREIDA ([facility]) mean corpuscular hemoglobin 24.8 pg 27.0-33.0 Below low nor mal Mean Corpuscular Hemoglobin FREIDA ([facility]) mean corpuscular volume 80.8 fL 80.0-96.0 Mean Corpusc ular Volume FREIDA ([facility]) red cell distribution width 15.3 % 11.5-14.5 Above high no rmal Red Cell Distribution Width F[place] ([facility]) platelet count, automated 168 10 150-450 Platelet C ount, Automated [place] ([facility]) lymph % 23.4 % 24.0-44.0 Below low normal Lymph % FREIDA ( [facility]) neutrophils % 68.0 % 36.0-66.0 Above high normal Neutrophils % A THENA ([facility]) mono % 5.1 % 0.0-5.0 Above high normal [place] % FREIDA ([facility]) baso % 0.3 % 0.0-1.0 Baso % FREIDA ([facility]) eos % 2.8 % 0.0-3.0 Eos % F[place]IDA ([facility]) nucleated red blood cell % 0.0 % 0-0 Nucleated Red Blood Cell % FREIDA ([facility]) immature granulocyte % 0.4 % 0-3.0 Immature Gran ulocyte % FREIDA ([facility]) neutrophils # 6.8 10 1.5-8.5 Neutrophils # FREIDA ( [facility]) lymph # 2.3 10 1.5-5.0 Lymph # F[place]IDA ([facility]) mono # 0.5 10 0.0-0.8 [place] # FREIDA ([facility]) eos # 0.3 10 0.0-0.5 Eos # F[place]IDA ([facility]) baso # 0.0 10 0.0-0.2 Baso # F[place]IDA ([facility]) ID Date Data Source [id number] 06/05/2020 09:37:00 PM EST [place] ([facility]) Name Value Range Interpretation Code Description Data Stephanie rce(s) Supporting Document(s) glucose, fasting 84 mg/dL 70-100 Glucose, Fasting AT [facility]) blood urea nitrogen 11 mg/dL 7-18 Blood Urea Nitro gen [place] ([facility]) creatinine for GFR 0.96 mg/dL 0.70-1.30 Creatinine for GF R [place] ([facility]) glomerular filtration rate > 60.0 >60 Glomerula r Filtration Rate [place] ([facility]) potassium serum 4.2 mEq/L 3.5-5.1 Potassium Serum ATHE NA ([facility]) chloride level 103 mEq/L 98-107 Chloride Level [place] ([facility]) sodium level 140 mEq/L 136-145 Sodium Level F[place]IDA (No [facility]) calcium level 8.8 mg/dL 8.5-10.1 Calcium Level [place] ( [facility]) anion gap 7 mEq/L 8-16 Below low normal Anion Gap [place] ( [facility]) carbon dioxide level 30 mEq/L 21-32 Carbon Dioxide Level [place] ([facility]) ID Date Data Source [id number] 06/05/2020 09:37:00 PM EST [place] ([facility]) Name Value Range Interpretation Code Description Data Stephanie rce(s) Supporting Document(s) AST/SGOT 21 U/L 7-37 AST/SGOT [place] ([facility]) alkaline phosphatase 132 U/L 45-117 Above high normal Alkaline Phosphatase [place] ([facility]) ALT/SGPT 29 U/L 12-78 ALT/SGPT [place] ([facility]) total protein 7.5 gm/dL 6.4-8.2 Total Protein [place] ( [facility]) bilirubin,total 0.3 mg/dL 0.2-1.0 Bilirubin,total ATHE ([facility]) bilirubin,direct < 0.1 0.0-0.2 Bilirubin,direct AT [place] ([facility]) albumin 3.5 gm/dL 3.2-5.2 Albumin [place] ([facility]) albumin/globulin ratio Albumin/globu sulma Ratio [place] ([facility]) ID Date Data Source [id number] 06/05/2020 09:37:00 PM EST [place] ([facility]) Name Value Range Interpretation Code Description Data Stephanie rce(s) Supporting Document(s) white blood count 9.9 10 4.0-10.0 White Blood Count [place] ([facility]) hematocrit 40.5 % 42.0-52.0 Below low normal Hematocrit [place] ( [facility]) red blood count 5.01 10 4.30-6.10 Red Blood Count ATHE NA ([facility]) hemoglobin 12.4 g/dL 13.5-17.5 Below low normal Hemoglobin [place] ( [facility]) mean corpuscular volume 80.8 fL 80.0-96.0 Mean Corpusc ular Volume [place] ([facility]) mean corpuscular hemoglobin 24.8 pg 27.0-33.0 Below low nor mal Mean Corpuscular Hemoglobin [place] ([facility]) platelet count, automated 168 10 150-450 Platelet C ount, Automated [place] ([facility]) mean corpuscular HGB conc 30.6 g/dL 32.0-36.5 Below low [place] l Mean Corpuscular HGB Conc [place] ([facility]) red cell distribution width 15.3 % 11.5-14.5 Above high no rmal Red Cell Distribution Width [place] ([facility]) lymph % 23.4 % 24.0-44.0 Below low normal Lymph % [place] ( [facility]) mono % 5.1 % 0.0-5.0 Above high normal [place] % FREIDA ([facility]) neutrophils % 68.0 % 36.0-66.0 Above high normal Neutrophils % A [place] ([facility]) baso % 0.3 % 0.0-1.0 Baso % [place] ([facility]) immature granulocyte % 0.4 % 0-3.0 Immature Gran ulocyte % F[place] ([facility]) eos % 2.8 % 0.0-3.0 Eos % [place] ([facility]) neutrophils # 6.8 10 1.5-8.5 Neutrophils # [place] ( [facility]) nucleated red blood cell % 0.0 % 0-0 Nucleated Red Blood Cell % [place] ([facility]) eos # 0.3 10 0.0-0.5 Eos # [place] ([facility]) lymph # 2.3 10 1.5-5.0 Lymph # [place] ([facility]) mono # 0.5 10 0.0-0.8 [place] # FREIDA ([facility]) baso # 0.0 10 0.0-0.2 Baso # [place] ([facility]) ID Date Data Source [id number] 06/05/2020 09:37:00 PM EST [place] ([facility]) Name Value Range Interpretation Code Description Data Stephanie rce(s) Supporting Document(s) lipase 90 U/L 73-393 Lipase [place] ([facility]) ID Date Data Source [id number] 06/05/2020 09:37:00 PM EST [place] ([facility]) Name Value Range Interpretation Code Description Data Stephanie rce(s) Supporting Document(s) blood urea nitrogen 11 mg/dL 7-18 Blood Urea Nitro gen [place] ([facility]) glucose, fasting 84 mg/dL 70-100 Glucose, Fasting AT [facility] ([facility]) potassium serum 4.2 mEq/L 3.5-5.1 Potassium Serum AT[place] ([facility]) creatinine for GFR 0.96 mg/dL 0.70-1.30 Creatinine for GF R [place] ([facility]) sodium level 140 mEq/L 136-145 Sodium Level F[place]IDA (No [facility]) glomerular filtration rate > 60.0 >60 Glomerula r Filtration Rate [place] ([facility]) carbon dioxide level 30 mEq/L 21-32 Carbon Dioxide Level [place] ([facility]) chloride level 103 mEq/L 98-107 Chloride Level [place] ([facility]) calcium level 8.8 mg/dL 8.5-10.1 Calcium Level [place] ( [facility]) anion gap 7 mEq/L 8-16 Below low normal Anion Gap [place] ( [facility]) ID Date Data Source [id number] 06/05/2020 09:37:00 PM EST [place] ([facility]) Name Value Range Interpretation Code Description Data Stephanie rce(s) Supporting Document(s) AST/SGOT 21 U/L 7-37 AST/SGOT [place] ([facility]) ALT/SGPT 29 U/L 12-78 ALT/SGPT [place] ([facility]) bilirubin,direct < 0.1 0.0-0.2 Bilirubin,direct AT [facility] ([facility]) bilirubin,total 0.3 mg/dL 0.2-1.0 Bilirubin,total ATHE [facility]) alkaline phosphatase 132 U/L 45-117 Above high normal Alkaline Phosphatase [place] ([facility]) total protein 7.5 gm/dL 6.4-8.2 Total Protein [place] ( [facility]) albumin/globulin ratio Albumin/globu sulma Ratio [place] ([facility]) albumin 3.5 gm/dL 3.2-5.2 Albumin [place] ([facility]) ID Date Data Source [id number] 06/05/2020 09:37:00 PM EST [place] ([facility]) Name Value Range Interpretation Code Description Data Stephanie rce(s) Supporting Document(s) white blood count 9.9 10 4.0-10.0 White Blood Count [place] ([facility]) red blood count 5.01 10 4.30-6.10 Red Blood Count ATHE NA ([facility]) hemoglobin 12.4 g/dL 13.5-17.5 Below low normal Hemoglobin [place] ( [facility]) mean corpuscular volume 80.8 fL 80.0-96.0 Mean Corpusc ular Volume [place] ([facility]) mean corpuscular hemoglobin 24.8 pg 27.0-33.0 Below low nor mal Mean Corpuscular Hemoglobin [place] ([facility]) hematocrit 40.5 % 42.0-52.0 Below low normal Hematocrit [place] ( [facility]) mean corpuscular HGB conc 30.6 g/dL 32.0-36.5 Below low [place] Mean Corpuscular HGB Conc [place] ([facility]) red cell distribution width 15.3 % 11.5-14.5 Above high no rmal Red Cell Distribution Width [place] ([facility]) platelet count, automated 168 10 150-450 Platelet C ount, Automated [place] ([facility]) mono % 5.1 % 0.0-5.0 Above high normal [place] % F[place] ([facility]) neutrophils % 68.0 % 36.0-66.0 Above high normal Neutrophils % A [place] ([facility]) lymph % 23.4 % 24.0-44.0 Below low normal Lymph % [place] ( [facility]) baso % 0.3 % 0.0-1.0 Baso % [place] ([facility]) immature granulocyte % 0.4 % 0-3.0 Immature Gran ulocyte % [place] [facility] [facility]) eos % 2.8 % 0.0-3.0 Eos % FREIDA ([facility]) neutrophils # 6.8 10 1.5-8.5 Neutrophils # FREIDA ( [facility]) nucleated red blood cell % 0.0 % 0-0 Nucleated Red Blood Cell % FREIDA ([facility]) lymph # 2.3 10 1.5-5.0 Lymph # FREIDA ([facility]) mono # 0.5 10 0.0-0.8 [place] # FREIDA ([facility]) baso # 0.0 10 0.0-0.2 Baso # FREIDA ([facility]) eos # 0.3 10 0.0-0.5 Eos # [place]REIDA ([facility]) ID Date Data Source [id number] 06/05/2020 09:37:00 PM EST FRE[place] ([facility]) Name Value Range Interpretation Code Description Data Stephanie rce(s) Supporting Document(s) lipase 90 U/L 73-393 Lipase FREIDA ([facility]) ID Date Data Source [id number] 05/30/2020 09:00:00 AM EST FRE[place] ([facility]) Name Value Range Interpretation Code Description Data Stephanie rce(s) Supporting Document(s) ID Date Data Source [id number] 05/30/2020 09:00:00 AM EST FRE[place] ([facility]) Name Value Range Interpretation Code Description Data Stephanie rce(s) Supporting Document(s) ID Date Data Source [id number] 05/30/2020 09:00:00 AM EST FRE[place] ([facility]) Name Value Range Interpretation Code Description Data Stephanie rce(s) Supporting Document(s) ID Date Data Source [id number] 05/30/2020 09:00:00 AM EST FREIDA [facility]) Name Value Range Interpretation Code Description Data Stephanie rce(s) Supporting Document(s) ID Date Data Source [id number] 05/30/2020 09:00:00 AM EST FRE[place] ([facility]) Name Value Range Interpretation Code Description Data Stephanie rce(s) Supporting Document(s) ID Date Data Source [id number] 05/30/2020 09:00:00 [facility] Name Value Range Interpretation Code Description Data Stephanie rce(s) Supporting Document(s) ID Date Data Source [id number] 05/30/2020 09:00:00 AM EST [place] ([facility]) Name Value Range Interpretation Code Description Data Stephanie rce(s) Supporting Document(s) ID Date Data Source [id number] 05/30/2020 09:00:00 AM EST FRE[place] ([facility]) Name Value Range Interpretation Code Description Data Stephanie rce(s) Supporting Document(s) ID Date Data Source [id number] 05/30/2020 09:00:00 AM EST FREIDA [facility]) Name Value Range Interpretation Code Description Data Stephanie rce(s) Supporting Document(s) ID Date Data Source [id number] 05/30/2020 09:00:00 AM EST MED[facility] Name Value Range Interpretation Code Description Data Stephanie rce(s) Supporting Document(s) Bacteria identified in Unspecified specimen by Anaerob e culture Laboratory test result MEDENT ([facility]) If anaerobic or aerobic growth is detected within the next 7-21 days, an addendum will follow. . . FULL REPORT IN LAB NOTES ([facility] NO GROWTH ANAEROBICALLY ID Date Data Source [id number] 05/30/2020 09:00:00 AM EST MEDENT ([facility]) Name Value Range Interpretation Code Description Data Stephanie rce(s) Supporting Document(s) Gram Stain Laboratory test result Normal (applies to non-n umeric results) [facility] ([facility], ) MANY RBCS NO ORGANISMS SEEN Abscess Culture Laboratory test result [facility] ([facility]) If aerobic or anaerobic growth is detected within the next 7-21 days, an addendum will follow. . . FULL REPORT IN LAB NOTES ([facility] NO GROWTH AEROBICALLY ID Date Data Source [id number] 05/30/2020 09:00:00 AM EST FRE[place] ([facility]) Name Value Range Interpretation Code Description Data Stephanie rce(s) Supporting Document(s) ID Date Data Source [id number] 05/30/2020 09:00:00 AM EST FREIDA ([facility]) Name Value Range Interpretation Code Description Data Stephanie rce(s) Supporting Document(s) ID Date Data Source [id number] 05/30/2020 09:00:00 AM EST FREIDA [facility]) Name Value Range Interpretation Code Description Data Stephanie rce(s) Supporting Document(s) ID Date Data Source [id number] 05/22/2020 03:39:00 PM EST MEDENT ([facility], ) Name Value Range Interpretation Code Description Data Stephanie rce(s) Supporting Document(s) Gram Stain Laboratory test result Normal (applies to non-n umeric results) [facility], ) FEW WBCS FEW RBCS NO ORGANISMS SEEN Wound Culture Laboratory [facility]) If aerobic or anaerobic growth is detected within the next 7-21 days, an addendum will follow. . . FULL REPORT IN LAB NOTES ([facility] NO GROWTH AEROBICALLY ID Date Data Source [id number] 05/16/2020 05:30:00 PM EST [place] ([facility]) Name Value Range Interpretation Code Description Data Stephanie rce(s) Supporting Document(s) istat HCT 43.0 % 38.0-51.0 Istat HCT FRIEDA ([facility]) istat sodium 139 mEq/L 136-145 Istat Sodium FREIDA ([facility]) istat glucose 87 mg/dL 70-105 Istat Glucose FREIDA ( [facility]) istat potassium 4.4 mEq/L 3.5-5.1 Istat Potassium ATHE NA ([facility]) istat chloride 100 mEq/L 98-109 Istat Chloride FREIDA ([facility]) istat BUN 12 mg/dL 8-26 Istat BUN [place] ([facility]) istat CO2 29.0 mm/L 23.0-27.0 Above high normal Istat CO2 F[place] ([facility]) istat Ca++ 4.8 mg/dL 4.5-5.3 Istat Ca++ [place] ([facility]) istat creatinine 1.0 mg/dL 0.6-1.3 Istat Creatinine AT [facility]) ID Date Data Source [id number] 05/16/2020 05:30:00 PM EST [place] ([facility]) Name Value Range Interpretation Code Description Data Stephanie rce(s) Supporting Document(s) istat HCT 43.0 % 38.0-51.0 Istat HCT FREIDA ([facility]) istat glucose 87 mg/dL 70-105 Istat Glucose [place] ( [facility]) istat potassium 4.4 mEq/L 3.5-5.1 Istat Potassium ATH NA ([facility]) istat sodium 139 mEq/L 136-145 Istat Sodium [place] ([facility]) istat Ca++ 4.8 mg/dL 4.5-5.3 Istat Ca++ FRE[place] ([facility]) istat BUN 12 mg/dL 8-26 Istat BUN [place] ([facility]) istat creatinine 1.0 mg/dL 0.6-1.3 Istat Creatinine AT [facility]) istat chloride 100 mEq/L 98-109 Istat Chloride [place] ([facility]) istat CO2 29.0 mm/L 23.0-27.0 Above high normal Istat CO2 [place] ([facility]) ID Date Data Source [id number] 05/16/2020 05:30:00 PM EST [place] ([facility]) Name Value Range Interpretation Code Description Data Stephanie rce(s) Supporting Document(s) istat HCT 43.0 % 38.0-51.0 Istat HCT FREIDA ([facility]) istat potassium 4.4 mEq/L 3.5-5.1 Istat Potassium ATHE NA ([facility]) istat glucose 87 mg/dL 70-105 Istat Glucose [place] ( [facility]) istat chloride 100 mEq/L 98-109 Istat Chloride F[place] ([facility]) istat sodium 139 mEq/L 136-145 Istat Sodium FREIDA (No [facility]) istat Ca++ 4.8 mg/dL 4.5-5.3 Istat Ca++ [place] ([facility]) istat BUN 12 mg/dL 8-26 Istat BUN [place] ([facility]) istat CO2 29.0 mm/L 23.0-27.0 Above high normal Istat CO2 [place] ([facility]) istat creatinine 1.0 mg/dL 0.6-1.3 Istat Creatinine AT [facility]) ID Date Data Source [id number] 05/16/2020 05:30:00 PM EST FRE[place] ([facility]) Name Value Range Interpretation Code Description Data Stephanie rce(s) Supporting Document(s) istat glucose 87 mg/dL 70-105 Istat Glucose [place] ( [facility]) istat sodium 139 mEq/L 136-145 Istat Sodium [place]IDA ([facility]) istat HCT 43.0 % 38.0-51.0 Istat HCT [place] ([facility]) istat potassium 4.4 mEq/L 3.5-5.1 Istat Potassium ATHE NA ([facility]) istat CO2 29.0 mm/L 23.0-27.0 Above high normal Istat CO2 [place] ([facility]) istat chloride 100 mEq/L 98-109 Istat Chloride F[place] ([facility]) istat Ca++ 4.8 mg/dL 4.5-5.3 Istat Ca++ [place] ([facility]) istat BUN 12 mg/dL 8-26 Istat BUN [place] ([facility]) istat creatinine 1.0 mg/dL 0.6-1.3 Istat Creatinine AT [facility]) ID Date Data Source [id number] 05/16/2020 05:25:00 PM EST FREIDA ([facility]) Name Value Range Interpretation Code Description Data Stephanie rce(s) Supporting Document(s) lactic acid sepsis protocol 0.7 mmol/L 0.4-2.0 Lactic A [facility] Sepsis [facility] ID Date Data Source [id number] 05/16/2020 05:25:00 PM EST FRE[place] [facility]) Name Value Range Interpretation Code Description Data Stephanie rce(s) Supporting Document(s) lactic acid sepsis protocol 0.7 mmol/L 0.4-2.0 Lactic A yas Sepsis Protocol [facility]) ID Date Data Source [id number] 05/16/2020 05:25:00 PM EST FREIDA ([facility]) Name Value Range Interpretation Code Description Data Stephanie rce(s) Supporting Document(s) lactic acid sepsis protocol 0.7 mmol/L 0.4-2.0 Lactic A yas Sepsis Protocol FREIDA ([facility]) ID Date Data Source [id number] 05/16/2020 05:25:00 PM EST FRE[place] ([facility]) Name Value Range Interpretation Code Description Data Stephanie rce(s) Supporting Document(s) lactic acid sepsis protocol 0.7 mmol/L 0.4-2.0 Lactic [facility]epsis [facility] ID Date Data Source [id number] 05/16/2020 05:24:00 PM EST [facility] Name Value Range Interpretation Code Description Data Stephanie rce(s) Supporting Document(s) lipase 76 U/L 73-393 Lipase FREIDA ([facility]) ID Date Data Source [id number] 05/16/2020 05:24:00 PM EST FRE[place] ([facility]) Name Value Range Interpretation Code Description Data Stephanie rce(s) Supporting Document(s) ALT/SGPT 29 U/L 12-78 ALT/SGPT [place] ([facility]) AST/SGOT 18 U/L 7-37 AST/SGOT F[place] ([facility]) bilirubin,total 0.2 mg/dL 0.2-1.0 Bilirubin,total ATHE NA ([facility]) bilirubin,direct < 0.1 0.0-0.2 Bilirubin,direct AT [place] ([facility]) total protein 7.8 gm/dL 6.4-8.2 Total Protein FREIDA ( [facility]) alkaline phosphatase 127 U/L 45-117 Above high normal Alkaline Phosphatase FREIDA ([facility]) albumin/globulin ratio Albumin/globu sulma Ratio FREIDA ([facility]) albumin 3.5 gm/dL 3.2-5.2 Albumin F[place] ([facility]) ID Date Data Source [id number] 05/16/2020 05:24:00 PM EST FRE[place] ([facility]) Name Value Range Interpretation Code Description Data Stephanie rce(s) Supporting Document(s) white blood count 7.6 10 4.0-10.0 White Blood Count FREIDA ([facility]) hemoglobin 13.4 g/dL 13.5-17.5 Below low normal Hemoglobin FREIDA ( [facility]) red blood count 5.36 10 4.30-6.10 Red Blood Count ATHE NA ([facility]) hematocrit 43.5 % 42.0-52.0 Hematocrit FREIDA ([facility]) mean corpuscular HGB conc 30.8 g/dL 32.0-36.5 Below low [place] l Mean Corpuscular HGB Conc FREIDA ([facility]) mean corpuscular hemoglobin 25.0 pg 27.0-33.0 Below low nor mal Mean Corpuscular Hemoglobin FREIDA ([facility]) mean corpuscular volume 81.2 fL 80.0-96.0 Mean Corpusc ular Volume FREIDA ([facility]) red cell distribution width 15.2 % 11.5-14.5 Above high no rmal Red Cell Distribution Width FREIDA ([facility]) platelet count, automated 183 10 150-450 Platelet C ount, Automated FREIDA ([facility]) neutrophils % 66.5 % 36.0-66.0 Above high normal Neutrophils % A THE[place] ([facility]) eos % 3.8 % 0.0-3.0 Above high normal Eos % FREIDA ([facility]) baso % 0.4 % 0.0-1.0 Baso % FREIDA ([facility]) lymph % 24.6 % 24.0-44.0 Lymph % [place] ([facility]) mono % 4.2 % 0.0-5.0 [place] % [place] ([facility]) immature granulocyte % 0.5 % 0-3.0 Immature Gran ulocyte % FREIDA ([facility]) neutrophils # 5.1 10 1.5-8.5 Neutrophils # FREIDA ( [facility]) nucleated red blood cell % 0.0 % 0-0 Nucleated Red Blood Cell % FREIDA ([facility]) lymph # 1.9 10 1.5-5.0 Lymph # FREIDA ([facility]) eos # 0.3 10 0.0-0.5 Eos # FREIDA ([facility]) baso # 0.0 10 0.0-0.2 Baso # FREIDA ([facility]) mono # 0.3 10 0.0-0.8 [place] # FREIDA ([facility]) ID Date Data Source [id number] 05/16/2020 05:24:00 PM EST [place] ([facility]) Name Value Range Interpretation Code Description Data Stephanie rce(s) Supporting Document(s) lipase 76 U/L 73-393 Lipase [place] ([facility]) ID Date Data Source [id number] 05/16/2020 05:24:00 PM EST [place] ([facility]) Name Value Range Interpretation Code Description Data Stephanie rce(s) Supporting Document(s) AST/SGOT 18 U/L 7-37 AST/SGOT [place] ([facility]) ALT/SGPT 29 U/L 12-78 ALT/SGPT [place] ([facility]) total protein 7.8 gm/dL 6.4-8.2 Total Protein FREIDA ( [facility]) alkaline phosphatase 127 U/L 45-117 Above high normal Alkaline Phosphatase F[place] ([facility]) bilirubin,total 0.2 mg/dL 0.2-1.0 Bilirubin,total ATHE ([facility]) bilirubin,direct < 0.1 0.0-0.2 Bilirubin,direct AT [facility] ([facility]) albumin 3.5 gm/dL 3.2-5.2 Albumin F[place] ([facility]) albumin/globulin ratio Albumin/globu sulma Ratio FREIDA ([facility]) ID Date Data Source [id number] 05/16/2020 05:24:00 PM EST [place] ([facility]) Name Value Range Interpretation Code Description Data Stephanie rce(s) Supporting Document(s) white blood count 7.6 10 4.0-10.0 White Blood Count [place] ([facility]) hematocrit 43.5 % 42.0-52.0 Hematocrit F[place] ([facility]) hemoglobin 13.4 g/dL 13.5-17.5 Below low normal Hemoglobin FREIDA ( [facility]) red blood count 5.36 10 4.30-6.10 Red Blood Count ATHE NA ([facility]) mean corpuscular hemoglobin 25.0 pg 27.0-33.0 Below low nor mal Mean Corpuscular Hemoglobin FREIDA ([facility]) mean corpuscular volume 81.2 fL 80.0-96.0 Mean Corpusc ular Volume FREIDA ([facility]) mean corpuscular HGB conc 30.8 g/dL 32.0-36.5 Below low [place] l Mean Corpuscular HGB Conc F[place] ([facility]) red cell distribution width 15.2 % 11.5-14.5 Above high no rmal Red Cell Distribution Width F[place] ([facility]) platelet count, automated 183 10 150-450 Platelet C ount, Automated [place] ([facility]) neutrophils % 66.5 % 36.0-66.0 Above high normal Neutrophils % A THENA ([facility]) lymph % 24.6 % 24.0-44.0 Lymph % FREIDA ([facility]) eos % 3.8 % 0.0-3.0 Above high normal Eos % FREIDA ([facility]) mono % 4.2 % 0.0-5.0 [place] % FREIDA ([facility]) baso % 0.4 % 0.0-1.0 Baso % [place] ([facility]) immature granulocyte % 0.5 % 0-3.0 Immature Gran ulocyte % FREIDA ([facility]) nucleated red blood cell % 0.0 % 0-0 Nucleated Red Blood Cell % FREIDA ([facility]) mono # 0.3 10 0.0-0.8 [place] # FREIDA ([facility]) neutrophils # 5.1 10 1.5-8.5 Neutrophils # FREIDA ( [facility]) lymph # 1.9 10 1.5-5.0 Lymph # FREIDA ([facility]) eos # 0.3 10 0.0-0.5 Eos # FREIDA ([facility]) baso # 0.0 10 0.0-0.2 Baso # F[place]IDA ([facility]) ID Date Data Source [id number] 05/16/2020 05:24:00 PM EST [place] ([facility]) Name Value Range Interpretation Code Description Data Stephanie rce(s) Supporting Document(s) lipase 76 U/L 73-393 Lipase [place] ([facility]) ID Date Data Source [id number] 05/16/2020 05:24:00 PM EST [place] ([facility]) Name Value Range Interpretation Code Description Data Stephanie rce(s) Supporting Document(s) AST/SGOT 18 U/L 7-37 AST/SGOT [place] ([facility]) alkaline phosphatase 127 U/L 45-117 Above high normal Alkaline Phosphatase F[place] ([facility]) ALT/SGPT 29 U/L 12-78 ALT/SGPT [place] ([facility]) bilirubin,direct < 0.1 0.0-0.2 Bilirubin,direct AT [place] ([facility]) total protein 7.8 gm/dL 6.4-8.2 Total Protein F[place]IDA ( [facility]) albumin 3.5 gm/dL 3.2-5.2 Albumin [place] ([facility]) bilirubin,total 0.2 mg/dL 0.2-1.0 Bilirubin,total ATHE ([facility]) albumin/globulin ratio Albumin/globu sulma Ratio F[place] ([facility]) ID Date Data Source [id number] 05/16/2020 05:24:00 PM EST [place] ([facility]) Name Value Range Interpretation Code Description Data Stephanie rce(s) Supporting Document(s) hemoglobin 13.4 g/dL 13.5-17.5 Below low normal Hemoglobin F[place]IDA ( [facility]) red blood count 5.36 10 4.30-6.10 Red Blood Count ATHE ([facility]) white blood count 7.6 10 4.0-10.0 White Blood Count [place] ([facility]) hematocrit 43.5 % 42.0-52.0 Hematocrit F[place] ([facility]) mean corpuscular hemoglobin 25.0 pg 27.0-33.0 Below low nor mal Mean Corpuscular Hemoglobin FREIDA ([facility]) mean corpuscular HGB conc 30.8 g/dL 32.0-36.5 Below low [place] l Mean Corpuscular HGB Conc [place] ([facility]) mean corpuscular volume 81.2 fL 80.0-96.0 Mean Corpusc ular Volume F[place]IDA ([facility]) neutrophils % 66.5 % 36.0-66.0 Above high normal Neutrophils % A THENA ([facility]) platelet count, automated 183 10 150-450 Platelet C ount, Automated [place] ([facility]) red cell distribution width 15.2 % 11.5-14.5 Above high no rmal Red Cell Distribution Width [place] ([facility]) mono % 4.2 % 0.0-5.0 [place] % FREIDA ([facility]) eos % 3.8 % 0.0-3.0 Above high normal Eos % FREIDA ([facility]) baso % 0.4 % 0.0-1.0 Baso % F[place]IDA ([facility]) lymph % 24.6 % 24.0-44.0 Lymph % [place] ([facility]) neutrophils # 5.1 10 1.5-8.5 Neutrophils # FREIDA ( [facility]) lymph # 1.9 10 1.5-5.0 Lymph # [place] ([facility]) nucleated red blood cell % 0.0 % 0-0 Nucleated Red Blood Cell % F[place] ([facility]) immature granulocyte % 0.5 % 0-3.0 Immature Gran ulocyte % [place] ([facility]) eos # 0.3 10 0.0-0.5 Eos # [place] ([facility]) baso # 0.0 10 0.0-0.2 Baso # [place] ([facility]) mono # 0.3 10 0.0-0.8 [place] # FREIDA ([facility]) ID Date Data Source [id number] 05/16/2020 05:24:00 PM EST [place] ([facility]) Name Value Range Interpretation Code Description Data Stephanie rce(s) Supporting Document(s) lipase 76 U/L 73-393 Lipase [place] ([facility]) ID Date Data Source [id number] 05/16/2020 05:24:00 PM EST [place] ([facility]) Name Value Range Interpretation Code Description Data Stephanie rce(s) Supporting Document(s) AST/SGOT 18 U/L 7-37 AST/SGOT [place] ([facility]) bilirubin,direct < 0.1 0.0-0.2 Bilirubin,direct AT [place] ([facility]) alkaline phosphatase 127 U/L 45-117 Above high normal Alkaline Phosphatase [place] ([facility]) ALT/SGPT 29 U/L 12-78 ALT/SGPT [place] ([facility]) bilirubin,total 0.2 mg/dL 0.2-1.0 Bilirubin,total ATHE NA ([facility]) total protein 7.8 gm/dL 6.4-8.2 Total Protein [place] ( [facility]) albumin 3.5 gm/dL 3.2-5.2 Albumin [place] ([facility]) albumin/globulin ratio Albumin/globu sulma Ratio [place] ([facility]) ID Date Data Source [id number] 05/16/2020 05:24:00 PM EST [place] ([facility]) Name Value Range Interpretation Code Description Data Stephanie rce(s) Supporting Document(s) white blood count 7.6 10 4.0-10.0 White Blood Count [place] ([facility]) red blood count 5.36 10 4.30-6.10 Red Blood Count ATHE ([facility]) mean corpuscular volume 81.2 fL 80.0-96.0 Mean Corpusc ular Volume [place] ([facility]) hematocrit 43.5 % 42.0-52.0 Hematocrit [place] ([facility]) hemoglobin 13.4 g/dL 13.5-17.5 Below low normal Hemoglobin [place] ( [facility]) mean corpuscular hemoglobin 25.0 pg 27.0-33.0 Below low nor mal Mean Corpuscular Hemoglobin [place] ([facility]) red cell distribution width 15.2 % 11.5-14.5 Above high no rmal Red Cell Distribution Width FREIDA ([facility]) mean corpuscular HGB conc 30.8 g/dL 32.0-36.5 Below low luis felipe l Mean Corpuscular HGB Conc [place] ([facility]) platelet count, automated 183 10 150-450 Platelet C ount, Automated [place] ([facility]) mono % 4.2 % 0.0-5.0 [place] % [place] ([facility]) lymph % 24.6 % 24.0-44.0 Lymph % [place] ([facility]) neutrophils % 66.5 % 36.0-66.0 Above high normal Neutrophils % A THENA ([facility]) nucleated red blood cell % 0.0 % 0-0 Nucleated Red Blood Cell % [place] ([facility]) immature granulocyte % 0.5 % 0-3.0 Immature Gran ulocyte % [place] ([facility]) baso % 0.4 % 0.0-1.0 Baso % [place] ([facility]) eos % 3.8 % 0.0-3.0 Above high normal Eos % [place] ([facility]) lymph # 1.9 10 1.5-5.0 Lymph # FREIDA ([facility]) mono # 0.3 10 0.0-0.8 [place] # [place] ([facility]) neutrophils # 5.1 10 1.5-8.5 Neutrophils # [place] ( [facility]) baso # 0.0 10 0.0-0.2 Baso # [place] ([facility]) eos # 0.3 10 0.0-0.5 Eos # [place] ([facility]) ID Date Data Source [id number] 03/06/2020 12:55:00 PM EDT LUISA [facility] Name Value Range Interpretation Code Description Data Stephanie rce(s) Supporting Document(s) Gram Stain Laboratory test result Normal (applies to non-n umeric results) MEDDELMY ([facility], ) FEW RBCS NO ORGANISMS SEEN Abscess Culture Laboratory test result MEDENT ([facility], ) If aerobic or anaerobic growth is detected within the next 7-21 days, an addendum will follow. . . FULL REPORT IN LAB NOTES (eCW and Medent). NO GROWTH AEROBICALLY Procedure Social History No Information Vital Signs ID Date Data Source UNK Name Value Range Interpretation Code Description Data Source(s) Diastolic blood pressure 85 mm[Hg] 85 mm[Hg] [place] ([facility]) Body height 65 [in_i] 65 [in_i] [place] ([facility]) Body mass index (BMI) [Ratio] 60.8 kg/m2 60.8 k g/m2 [place] ([facility]) Systolic blood pressure 127 mm[Hg] 127 mm[Hg] A THENA ([facility]) Body weight 5844 [oz_av] 5844 [oz_av] FREIDA ([facility]) Systolic blood pressure 161 mm[Hg] 161 mm[Hg] M EDENT ([facility], ) Diastolic blood pressure 91 mm[Hg] 91 mm[Hg] MEDENT ([facility], ) Body temperature 98.1 [degF] 98.1 [degF] [facility] ([facility]) Body height 65 [in_i] 65 [in_i] [facility], [facility] 5'5" Body weight 362.00 [lb_av] 362.00 [lb_av] MEDEN T ([facility]) Body mass index (BMI) [Ratio] 60.2 kg/m2 60.2 k g/m2 [facility]) [place] body weight 136 [lb_av] 136 [lb_av] MEDEN T ([facility]) Body weight 164.203 kg 164.203 kg [facility] ([facility]) Body surface area Derived from formula 2.55 m2 2.55 m2 [facility] ([facility], ) Diastolic blood pressure 80 mm[Hg] 80 mm[Hg] FREIDA ([facility]) Body height 65 [in_i] 65 [in_i] FREIDA ([facility]) Body mass index (BMI) [Ratio] 60 kg/m2 60 kg/ m2 FREIDA ([facility]) Systolic blood pressure 124 mm[Hg] 124 mm[Hg] A THENA ([facility]) Body weight 5766 [oz_av] 5766 [oz_av] FREIDA ([facility]) Diastolic blood pressure 80 mm[Hg] 80 mm[Hg] FREIDA ([facility]) Body height 65 [in_i] 65 [in_i] FREIDA ([facility]) Body mass index (BMI) [Ratio] 60 kg/m2 60 kg/ m2 FREIDA ([facility]) Systolic blood pressure 124 mm[Hg] 124 mm[Hg] A THENA ([facility]) Body weight 5766 [oz_av] 5766 [oz_av] FREIDA ([facility]) Body surface area Derived from formula 2.53 m2 2.53 m2 [facility] ([facility], ) Body height 65 [in_i] 65 [in_i] MEDENT ([facility], ) 5'5" Body weight 356.25 [lb_av] 356.25 [lb_av] MEDEN T ([facility], ) Body mass index (BMI) [Ratio] 59.3 kg/m2 59.3 k g/m2 [facility] ([facility], ) [place] body weight 136 [lb_av] 136 [lb_av] MEDEN T ([facility], ) Body weight 161.595 kg 161.595 kg [facility] ([facility], ) Systolic blood pressure 134 mm[Hg] 134 mm[Hg] M EDENT ([facility], ) Diastolic blood pressure 86 mm[Hg] 86 mm[Hg] MEDENT ([facility], ) Heart rate 66 /min 66 /min [facility], ) Body height 65 [in_i] 65 [in_i] MEDENT ([facility], ) 5'5" Body weight 356.25 [lb_av] 356.25 [lb_av] MEDEN T ([facility]) Body mass index (BMI) [Ratio] 59.3 kg/m2 59.3 k g/m2 MEDENT ([facility]) [place] body weight 136 [lb_av] 136 [lb_av] MEDEN T ([facility]) Body weight 161.595 kg 161.595 kg MEDENT ([facility]) Body surface area Derived from formula 2.53 m2 2.53 m2 [facility] ([facility]) Systolic blood pressure 141 mm[Hg] 141 mm[Hg] M EDENT ([facility]) Diastolic blood pressure 86 mm[Hg] 86 mm[Hg] [facility]) Body height 65 [in_i] 65 [in_i] [facility] ([facility]) 5'5" Body weight 361.25 [lb_av] 361.25 [lb_av] MEDEN T ([facility]) Body mass index (BMI) [Ratio] 60.1 kg/m2 60.1 k g/m2 [facility] ([facility]) [place] body weight 136 [lb_av] 136 [lb_av] MEDEN T ([facility]) Body weight 163.863 kg 163.863 kg [facility] ([facility]) Body surface area Derived from formula 2.54 m2 2.54 m2 [facility] ([facility]) Systolic blood pressure 128 mm[Hg] 128 mm[Hg] M EDENT ([facility]) Diastolic blood pressure 85 mm[Hg] 85 mm[Hg] MEDENT ([facility]) Heart rate 80 /min 80 /min [facility] ([facility]) Body height 65 [in_i] 65 [in_i] [facility] ([facility]) 5'5" Body weight 360.00 [lb_av] 360.00 [lb_av] MEDEN T ([facility]) Body mass index (BMI) [Ratio] 59.9 kg/m2 59.9 k g/m2 MEDENT ([facility]) [place] body weight 136 [lb_av] 136 [lb_av] MEDEN T ([facility], ) Body weight 163.296 kg 163.296 kg MEDENT ([facility], ) Body surface area Derived from formula 2.54 m2 2.54 m2 MEDENT ([facility], ) Diastolic blood pressure 78 mm[Hg] 78 mm[Hg] FREIDA ([facility]) Body height 65 [in_i] 65 [in_i] FREIDA ([facility]) Body mass index (BMI) [Ratio] 58.4 kg/m2 58.4 k g/m2 FREIDA ([facility]) Systolic blood pressure 113 mm[Hg] 113 mm[Hg] A [facility] ([facility]) Body weight 5616 [oz_av] 5616 [oz_av] FREIDA ([facility]) Diastolic blood pressure 78 mm[Hg] 78 mm[Hg] FREIDA ([facility]) Body height 65 [in_i] 65 [in_i] FREIDA ([facility]) Body mass index (BMI) [Ratio] 58.4 kg/m2 58.4 k g/m2 FREIDA ([facility]) Systolic blood pressure 113 mm[Hg] 113 mm[Hg] A THENA ([facility]) Body weight 5616 [oz_av] 5616 [oz_av] FREIDA ([facility]) Diastolic blood pressure 78 mm[Hg] 78 mm[Hg] FREIDA ([facility]) Body height 65 [in_i] 65 [in_i] FREIDA ([facility]) Body mass index (BMI) [Ratio] 58.4 kg/m2 58.4 k g/m2 FREIDA ([facility]) Systolic blood pressure 113 mm[Hg] 113 mm[Hg] A THENA ([facility]) Body weight 5616 [oz_av] 5616 [oz_av] FREIDA ([facility]) Systolic blood pressure 136 mm[Hg] 136 mm[Hg] M EDENT ([facility], ) Diastolic blood pressure 78 mm[Hg] 78 mm[Hg] MEDENT ([facility]) Body height 65 [in_i] 65 [in_i] MEDENT ([facility]) 5'5" Body weight 356.25 [lb_av] 356.25 [lb_av] MEDEN T ([facility]) Body mass index (BMI) [Ratio] 59.3 kg/m2 59.3 k g/m2 MEDENT ([facility]) [place] body weight 136 [lb_av] 136 [lb_av] MEDEN T ([facility]) Body weight 161.595 kg 161.595 kg MEDENT ([facility]) Body surface area Derived from formula 2.53 m2 2.53 m2 [facility] ([facility]) Systolic blood pressure 133 mm[Hg] 133 mm[Hg] [facility] Diastolic blood pressure 89 mm[Hg] 89 mm[Hg] [facility] ([facility]) Heart rate 86 /min 86 /min [facility] ([facility]) Body height 65 [in_i] 65 [in_i] [facility] ([facility]) 5'5" Body weight 352.12 [lb_av] 352.12 [lb_av] MEDEN T ([facility]) Body mass index (BMI) [Ratio] 58.6 kg/m2 58.6 k g/m2 [facility] ([facility]) [place] body weight 136 [lb_av] 136 [lb_av] MEDEN T ([facility]) Body weight 159.724 kg 159.724 kg [facility] ([facility]) Body surface area Derived from formula 2.52 m2 2.52 m2 [facility] ([facility]) Systolic blood pressure 142 mm[Hg] 142 mm[Hg] M EDENT ([facility]) Diastolic blood pressure 104 mm[Hg] 104 mm[Hg] [facility] ([facility]) Body temperature 97.0 [degF] 97.0 [degF] [facility] ([facility]) Body height 65 [in_i] 65 [in_i] [facility]) 5'5" Body weight 358.25 [lb_av] 358.25 [lb_av] MEDEN T ([facility]) Body mass index (BMI) [Ratio] 59.6 kg/m2 59.6 k g/m2 [facility] ([facility]) [place] body weight 136 [lb_av] 136 [lb_av] MEDEN T ([facility]) Body weight 162.502 kg 162.502 kg MEDENT ([facility]) Body surface area Derived from formula 2.53 m2 2.53 m2 [facility] ([facility]) Systolic blood pressure 138 mm[Hg] 138 mm[Hg] M EDENT ([facility]) Diastolic blood pressure 87 mm[Hg] 87 mm[Hg] MEDENT ([facility]) Heart rate 102 /min 102 /min [facility] ([facility]) Body height 65 [in_i] 65 [in_i] MEDENT ([facility]) 5'5" Body weight 356.12 [lb_av] 356.12 [lb_av] MEDEN T ([facility]) [place] body weight 136 [lb_av] 136 [lb_av] MEDEN T ([facility]) Body weight 161.538 kg 161.538 kg [facility] ([facility]) Body surface area Derived from formula 2.53 m2 2.53 m2 [facility] ([facility]) Body mass index (BMI) [Ratio] 59.3 kg/m2 59.3 k g/m2 [facility] ([facility]) Diastolic blood pressure 88 mm[Hg] 88 mm[Hg] FREIDA ([facility]) Body height 65 [in_i] 65 [in_i] FREIDA ([facility]) Body mass index (BMI) [Ratio] 62.3 kg/m2 62.3 k g/m2 FREIDA ([facility]) Systolic blood pressure 132 mm[Hg] 132 mm[Hg] A THENA ([facility]) Body weight 5986 [oz_av] 5986 [oz_av] FREIDA ([facility]) Body height 65 [in_i] 65 [in_i] FREIDA ([facility]) Body mass index (BMI) [Ratio] 62.3 kg/m2 62.3 k g/m2 FREIDA ([facility]) Systolic blood pressure 132 mm[Hg] 132 mm[Hg] A THENA ([facility]) Diastolic blood pressure 88 mm[Hg] 88 mm[Hg] FREIDA ([facility]) Body weight 5986 [oz_av] 5986 [oz_av] FREIDA ([facility]) Diastolic blood pressure 88 mm[Hg] 88 mm[Hg] FREIDA ([facility]) Body height 65 [in_i] 65 [in_i] FREIDA ([facility]) Body mass index (BMI) [Ratio] 62.3 kg/m2 62.3 k g/m2 FREIDA ([facility]) Systolic blood pressure 132 mm[Hg] 132 mm[Hg] A THENA ([facility]) Body weight 5986 [oz_av] 5986 [oz_av] FREIDA ([facility]) Diastolic blood pressure 88 mm[Hg] 88 mm[Hg] FREIDA ([facility]) Body height 65 [in_i] 65 [in_i] FREIDA ([facility]) Body mass index (BMI) [Ratio] 62.3 kg/m2 62.3 k g/m2 FREIDA ([facility]) Systolic blood pressure 132 mm[Hg] 132 mm[Hg] A THENA ([facility]) Body weight 5986 [oz_av] 5986 [oz_av] FREIDA ([facility]) Heart rate 74 /min 74 /min MEDENT ([facility]) [place] body weight 136 [lb_av] 136 [lb_av] MEDEN T ([facility]) Body weight 172.878 kg 172.878 kg MEDENT ([facility]) Systolic blood pressure 151 mm[Hg] 151 mm[Hg] M EDENT ([facility]) Diastolic blood pressure 84 mm[Hg] 84 mm[Hg] MEDENT ([facility]) Body height 65 [in_i] 65 [in_i] MEDENT ([facility]) 5'5" Body weight 381.12 [lb_av] 381.12 [lb_av] MEDEN T ([facility]) Body mass index (BMI) [Ratio] 63.4 kg/m2 63.4 k g/m2 [facility] ([facility]) Body surface area Derived from formula 2.60 m2 2.60 m2 [facility] ([facility]) Systolic blood pressure 138 mm[Hg] 138 mm[Hg] M EDENT ([facility]) Diastolic blood pressure 64 mm[Hg] 64 mm[Hg] MEDENT ([facility]) Body height 65 [in_i] 65 [in_i] MEDENT ([facility]) 5'5" Body weight 377.00 [lb_av] 377.00 [lb_av] MEDEN T ([facility]) Body mass index (BMI) [Ratio] 62.7 kg/m2 62.7 k g/m2 [facility] ([facility]) [place] body weight 136 [lb_av] 136 [lb_av] MEDEN T ([facility]) Body weight 171.007 kg 171.007 kg [facility] ([facility]) Body surface area Derived from formula 2.59 m2 2.59 m2 [facility] ([facility]) Systolic blood pressure 130 mm[Hg] 130 mm[Hg] M EDENT ([facility]) Diastolic blood pressure 87 mm[Hg] 87 mm[Hg] MEDENT ([facility]) Body height 65 [in_i] 65 [in_i] MEDENT ([facility]) 5'5" Body weight 378.25 [lb_av] 378.25 [lb_av] MEDEN T ([facility]) Body mass index (BMI) [Ratio] 62.9 kg/m2 62.9 k g/m2 [facility] ([facility]) [place] body weight 136 [lb_av] 136 [lb_av] MEDEN T ([facility]) Body weight 171.574 kg 171.574 kg MEDENT ([facility]) Body surface area Derived from formula 2.59 m2 2.59 m2 [facility] ([facility]) Body height 65 [in_i] 65 [in_i] MEDENT ([facility]) 5'5" Body weight 379.38 [lb_av] 379.38 [lb_av] MEDEN T ([facility]) Body mass index (BMI) [Ratio] 63.1 kg/m2 63.1 k g/m2 MEDENT ([facility]) [place] body weight 136 [lb_av] 136 [lb_av] MEDEN T ([facility]) Body weight 172.084 kg 172.084 kg MED[facility] ([facility]) Body surface area Derived from formula 2.60 m2 2.60 m2 [facility] ([facility]) Body mass index (BMI) [Ratio] 61.1 kg/m2 61.1 k g/m2 MEDENT ([facility] Body height 65 [in_i] 65 [in_i] MEDENT ([facility] 5'5" Body weight 367.00 [lb_av] 367.00 [lb_av] MEDEN T ([facility] Systolic blood pressure 137 mm[Hg] 137 mm[Hg] EDENT ([facility] Diastolic blood pressure 90 mm[Hg] 90 mm[Hg] MEDENT ([facility] Heart rate 77 /min 77 /min MEDENT ([facility] Body weight 174.352 kg 174.352 kg [facility] ([facility]) Systolic blood pressure 127 mm[Hg] 127 mm[Hg] EDENT ([facility]) Diastolic blood pressure 85 mm[Hg] 85 mm[Hg] MEDENT ([facility]) Heart rate 72 /min 72 /min MEDENT ([facility]) Body height 65 [in_i] 65 [in_i] [facility] Body weight 384.38 [lb_av] 384.38 [lb_av] MEDEN T ([facility]) Body mass index (BMI) [Ratio] 64.0 kg/m2 64.0 k g/m2 MED[facility] ([facility]) [place] body weight 136 [lb_av] 136 [lb_av] MEDEN T ([facility]) Systolic blood pressure 126 mm[Hg] 126 mm[Hg] M EDENT ([facility]) Diastolic blood pressure 93 mm[Hg] 93 mm[Hg] MEDENT ([facility], [facility]) Heart rate 66 /min 66 /min MEDENT ([facility] [place]) Respiratory rate 18 /min 18 /min MEDENT ( [facility]) Oxygen saturation in Arterial blood by Pulse oximetry 97 % 97 % [facility]) Body temperature 97.8 [degF] 97.8 [degF] [facility] ([facility]) Body weight 370.00 [lb_av] 370.00 [lb_av] MEDEN T ([facility], [facility]) Body height 65 [in_i] 65 [in_i] MEDENT ([facility]) 5'5" Body mass index (BMI) [Ratio] 61.6 kg/m2 61.6 k g/m2 MEDENT ([facility], [facility]) Patient Treatment Plan of Care Planned Activity Planned Date Details Description Data Source (s) tramadol hydrochloride 50 MG Oral Tablet FREIDA ([facility]) Sucralfate 1000 MG Oral Tablet FREIDA ([facility]) Acetaminophen 325 MG / Oxycodone Hydrochloride 5 MG Oral Tablet FREIDA ([facility]) Ondansetron 4 MG Oral Tablet FREIDA ([facility]) Methocarbamol 750 MG Oral Tablet FREIDA ([facility]) meloxicam 7.5 MG Oral Tablet FREIDA ([facility]) Lidocaine 40 MG/ML Topical Cream FREIDA ([facility]) Ketorolac Tromethamine 10 MG Oral Tablet FREIDA ([facility]) Ibuprofen 600 MG Oral Tablet FREIDA ([facility]) Cyclobenzaprine hydrochloride 10 MG Oral Tablet FREIDA ([facility]) chlorhexidine gluconate 1.2 MG/ML Mouthwash FREIDA ([facility]) Amoxicillin 875 MG / Clavulanate 125 MG Oral Tablet FREIDA ([facility]) Amoxicillin 500 MG Oral Capsule FREIDA ([facility]) ammonium lactate 120 MG/ML Topical Cream FREIDA ([facility]) tramadol hydrochloride 50 MG Oral Tablet FREIDA ([facility]) Sucralfate 1000 MG Oral Tablet FREIDA ([facility]) Acetaminophen 325 MG / Oxycodone Hydrochloride 5 MG Oral Tablet FREIDA ([facility]) Ondansetron 4 MG Oral Tablet FREIDA ([facility]) Methocarbamol 750 MG Oral Tablet FREIDA ([facility]) meloxicam 7.5 MG Oral Tablet FREIDA ([facility]) Lidocaine 40 MG/ML Topical Cream FREIDA ([facility]) Ketorolac Tromethamine 10 MG Oral Tablet FREIDA ([facility]) Ibuprofen 600 MG Oral Tablet FREIDA ([facility]) Cyclobenzaprine hydrochloride 10 MG Oral Tablet FREIDA ([facility]) chlorhexidine gluconate 1.2 MG/ML Mouthwash FREIDA ([facility]) Amoxicillin 875 MG / Clavulanate 125 MG Oral Tablet FREIDA ([facility]) Amoxicillin 500 MG Oral Capsule FREIDA ([facility]) ammonium lactate 120 MG/ML Topical Cream FREIDA ([facility]) Sucralfate 1000 MG Oral Tablet FREIDA ([facility]) Acetaminophen 325 MG / Oxycodone Hydrochloride 5 MG Oral Tablet FREIDA ([facility]) Ondansetron 4 MG Oral Tablet FREIDA ([facility]) meloxicam 7.5 MG Oral Tablet FREIDA ([facility]) Lidocaine 40 MG/ML Topical Cream FREIDA ([facility]) Ibuprofen 600 MG Oral Tablet FREIDA ([facility]) Cyclobenzaprine hydrochloride 10 MG Oral Tablet FREIDA ([facility]) chlorhexidine gluconate 1.2 MG/ML Mouthwash FREIDA ([facility]) Amoxicillin 875 MG / Clavulanate 125 MG Oral Tablet FREIDA ([facility]) Amoxicillin 500 MG Oral Capsule FREIDA ([facility]) ammonium lactate 120 MG/ML Topical Cream FREIDA ([facility]) Sucralfate 1000 MG Oral Tablet FREIDA ([facility]) Acetaminophen 325 MG / Oxycodone Hydrochloride 5 MG Oral Tablet FREIDA ([facility]) meloxicam 7.5 MG Oral Tablet FREIDA ([facility]) Lidocaine 40 MG/ML Topical Cream FREIDA ([facility]) Ibuprofen 600 MG Oral Tablet FREIDA ([facility]) Cyclobenzaprine hydrochloride 10 MG Oral Tablet FREIDA ([facility]) chlorhexidine gluconate 1.2 MG/ML Mouthwash FREIDA ([facility]) Amoxicillin 875 MG / Clavulanate 125 MG Oral Tablet FREIDA ([facility]) Amoxicillin 500 MG Oral Capsule FREIDA ([facility]) ammonium lactate 120 MG/ML Topical Cream FREIDA ([facility])
[2021-05-01] MEDS ORDERED: propofoL 200 MG/20 ML VIAL As Ordered ONE ×2 (11:34→11:50)
[2021-05-01] MEDS ORDERED: LIDOCAINE 2% 100MG/5ML SDV (FOR ANES.) As Ordered ONE (11:34)
[2021-05-01] MEDS ORDERED: fentaNYL 100 MCG/2 ML INJECTION (J3010) As Ordered ONE (11:35)
--- NOTE | 2021-05-01 12:04 | ROOR ---
Patient Name: Bud Mcneal Procedure Date: 05/01/2021 11:43 AM Date of : 1980 Age: 40 Room: BABB03 Gender: Male Note Status: Finalized Procedure: Upper GI endoscopy Indications: Dyspepsia, Nausea with vomiting Providers: William Yusuf MD Referring MD: David VILLANUEVA MD Requesting Provider: Medicines: Monitored Anesthesia Care Complications: No immediate complications. Procedure: Pre-Anesthesia Assessment: - Prior to the procedure, a History and Physical was performed, and patient medications and allergies were reviewed. The patient is competent. The risks and benefits of the procedure and the sedation options and risks were discussed with the patient. All questions were answered and informed consent was obtained. Patient identification and proposed procedure were verified by the physician, the nurse and the anesthesiologist in the endoscopy suite. Mental Status Examination: alert and oriented. Airway Examination: normal oropharyngeal airway and neck mobility. Respiratory Examination: clear to auscultation. CV Examination: normal. Prophylactic Antibiotics: The patient does not require prophylactic antibiotics. Prior Anticoagulants: The patient has taken no previous anticoagulant or antiplatelet agents. ASA Grade Assessment: III - A patient with severe systemic disease. After reviewing the risks and benefits, the patient was deemed in satisfactory condition to undergo the procedure. The anesthesia plan was to use monitored anesthesia care (MAC). Immediately prior to administration of medications, the patient was re-assessed for adequacy to receive sedatives. The heart rate, respiratory rate, oxygen saturations, blood pressure, adequacy of pulmonary ventilation, and response to care were monitored throughout the procedure. The physical status of the patient was re-assessed after the procedure. The Endoscope was introduced through the mouth, and advanced to the second part of duodenum. The upper GI endoscopy was accomplished without difficulty. The patient tolerated the procedure well. Findings: The examined esophagus was normal. The Z-line was regular and was found 40 cm from the incisors. Diffuse granular mucosa was found in the gastric body. Five 10 mm mucosal papules (nodules) with no bleeding and no stigmata of recent bleeding were found in the prepyloric region of the stomach. Biopsies were taken with a cold forceps for histology. Estimated blood loss was minimal. The duodenal bulb, first portion of the duodenum and second portion of the duodenum were normal. Bilious fluid was found in the gastric fundus. Impression: - Normal esophagus. - Z-line regular, 40 cm from the incisors. - Granular gastric mucosa. - Five mucosal papules (nodules) found in the stomach. Biopsied. - Normal duodenal bulb, first portion of the duodenum and second portion of the duodenum. - Bilious gastric fluid. - High likelihood of bile gastritis. Recommendation: - Discharge patient to home (ambulatory). - Continue present medications. - Use sucralfate tablets 1 gram PO BID for 6 weeks. - Use Zofran (ondansetron) 4 mg PO TID PRN. Procedure Code(s): --- Professional --- 51196, Esophagogastroduodenoscopy, flexible, transoral; with biopsy, single or multiple Diagnosis Code(s): --- Professional --- K31.89, Other diseases of stomach and duodenum R10.13, Epigastric pain R11.2, Nausea with vomiting, unspecified CPT copyright 2019 [employer]. All rights reserved. The codes documented in this report are preliminary and upon manager truck review may be revised to meet current compliance requirements. William Yusuf MD William Yusuf MD 05/01/2021 12:04:11 PM Electronically signed by William Yusuf MD Number of Addenda: 0 Note Initiated On: 05/01/2021 11:43 AM Estimated Blood Loss: Estimated blood loss was minimal.
[2021-05-01 12:25] VITALS: BP 139/84
== END 2021-05-01 13:00 | disposition home or self-care (01) ==
LOC: M OPP 10:43
PROVIDERS: ATTEND Surgery
DX: K29.70 Gastritis, unspecified, without bleeding (principal); Z87.19 Personal history of other diseases of the digestive system; R11.0 Nausea; R13.10 Dysphagia, unspecified; Z79.899 Other long term (current) drug therapy; F17.210 Nicotine dependence, cigarettes, uncomplicated
CPT/HCPCS: 43239; 88305; J3010

== ENCOUNTER 2021-12-08 22:47 | Emergency (ER) | payer OTHER ==
[~2021-12-08] VITALS: Ht 165.1 cm; Wt 164.6 kg
[~2021-12-08 22:47] MED LIST changes: -NS 1,000 ML IV ONE
[2021-12-08] MEDS ORDERED: PANT40TA29 PO (23:13)
[2021-12-09 02:54] VITALS: BP 150/94
== END 2021-12-09 06:22 | disposition left against medical advice (07) ==
LOC: M ED 22:47
DX: Z53.21 Procedure and treatment not carried out due to patient leaving prior to being seen by health care provider (principal)

== ENCOUNTER 2022-03-30 17:46 | Emergency (ER) | payer OTHER ==
[~2022-03-30] VITALS: Ht 165.1 cm; Wt 162.4 kg
[2022-03-30] MEDS ORDERED: FAMO40TA3 (17:52)
[2022-03-30] MEDS ORDERED: ASPIRIN 81 MG CHEW TABLET PO ONE (18:10)
[2022-03-30] MEDS ORDERED: NITROGLYCERIN 0.4 MG SUBL TABLET SL PRN (18:10)
[2022-03-30 18:20] LABS: BASO % 0.4 % (0.0-1.0); EOS # 0.3 10^3/uL (0.0-0.5); EOS % 3.6 % (0.0-3.0); HEMATOCRIT 44.8 % (42.0-52.0); LYMPH # 2.5 10^3/uL (1.5-5.0); LYMPH % 31.8 % (24.0-44.0); MEAN CORPUSCULAR HEMOGLOBIN 25.2 pg (27.0-33.0); MEAN CORPUSCULAR HGB CONC 31.3 g/dl (32.0-36.5); MEAN CORPUSCULAR VOLUME 80.6 fl (80.0-96.0); MONO # 0.3 10^3/uL (0.0-0.8); MONO % 4.3 % (2.0-8.0); NEUTROPHILS # 4.7 10^3/uL (1.5-8.5); NEUTROPHILS % 59.5 % (36.0-66.0); PLATELET COUNT, AUTOMATED 187 10^3/uL (150-450); RED BLOOD COUNT 5.56 10^6/uL (4.30-6.10); WHITE BLOOD COUNT 7.8 10^3/uL (4.0-10.0)
[2022-03-30 18:59] LABS: ALBUMIN 3.4 GM/DL (3.2-5.2); ALT/SGPT 36 U/L (12-78); BILIRUBIN,DIRECT 0.1 MG/DL (0.0-0.2); BILIRUBIN,TOTAL 0.2 MG/DL (0.2-1.0); BLOOD UREA NITROGEN 10 MG/DL (7-18); CALCIUM LEVEL 8.5 MG/DL (8.5-10.1); CARBON DIOXIDE LEVEL 26 MEQ/L (21-32); CHLORIDE LEVEL 105 MEQ/L (98-107); CREATININE FOR GFR 1.29 MG/DL (0.70-1.30); GLOMERULAR FILTRATION RATE > 60.0 (>60); GLUCOSE, FASTING 107 MG/DL (70-100); LIPASE 125 U/L (73-393); NT-PRO BNP 39 PG/ML (<125); POTASSIUM SERUM 4.4 MEQ/L (3.5-5.1); SODIUM LEVEL 137 MEQ/L (136-145); TOTAL PROTEIN 7.8 GM/DL (6.4-8.2)
[2022-03-30 19:19] LABS: CK-MB VALUE MASS 4.3 NG/ML (<3.6); MB/CK RELATIVE INDEX 0.92 (< OR =4)
[2022-03-30] MEDS ORDERED: ISOVUE-370 76% 100ML VIAL As Ordered ONE (19:20)
[2022-03-30 19:49] LABS: CK-MB VALUE MASS 3.5 NG/ML (<3.6); MB/CK RELATIVE INDEX 0.84 (< OR =4)
[2022-03-30 20:46] VITALS: BP 141/72
== END 2022-03-30 21:01 | disposition home or self-care (01) ==
LOC: M ED 17:46
DX: R07.9 Chest pain, unspecified (principal); I44.4 Left anterior fascicular block; I10 Essential (primary) hypertension; F17.200 Nicotine dependence, unspecified, uncomplicated; Z86.79 Personal history of other diseases of the circulatory system; Z79.899 Other long term (current) drug therapy
CPT/HCPCS: 36415; 71045; 71275; 80048; 80076; 82550; 82553; 83690; 83880; 85025; 85652; 93005; 93041; 94760; 99285; Q9967

== ENCOUNTER 2022-04-09 18:34 | Emergency (ER) | payer OTHER ==
[~2022-04-09] VITALS: Ht 165.1 cm; Wt 163.0 kg
[~2022-04-09 18:34] MED LIST changes: +FAMO40TA3
[2022-04-09 18:35] VITALS: BP 155/104
[2022-04-09 20:55] LABS: BASO % 0.3 % (0.0-1.0); EOS # 0.4 10^3/uL (0.0-0.5); EOS % 3.9 % (0.0-3.0); HEMATOCRIT 42.3 % (42.0-52.0); HEMOGLOBIN 13.6 g/dl (13.5-17.5); LYMPH # 2.7 10^3/uL (1.5-5.0); LYMPH % 30.2 % (24.0-44.0); MEAN CORPUSCULAR HEMOGLOBIN 26.1 pg (27.0-33.0); MEAN CORPUSCULAR HGB CONC 32.2 g/dl (32.0-36.5); MONO # 0.4 10^3/uL (0.0-0.8); MONO % 4.8 % (2.0-8.0); NEUTROPHILS # 5.5 10^3/uL (1.5-8.5); NEUTROPHILS % 60.6 % (36.0-66.0); PLATELET COUNT, AUTOMATED 170 10^3/uL (150-450); RED BLOOD COUNT 5.22 10^6/uL (4.30-6.10); WHITE BLOOD COUNT 9.1 10^3/uL (4.0-10.0)
[2022-04-09 21:15] LABS: ALBUMIN 3.7 GM/DL (3.2-5.2); ALT/SGPT 36 U/L (12-78); BILIRUBIN,DIRECT < 0.1 MG/DL (0.0-0.2); BILIRUBIN,TOTAL 0.4 MG/DL (0.2-1.0); BLOOD UREA NITROGEN 15 MG/DL (7-18); CALCIUM LEVEL 8.8 MG/DL (8.5-10.1); CARBON DIOXIDE LEVEL 34 MEQ/L (21-32); CHLORIDE LEVEL 102 MEQ/L (98-107); CREATININE FOR GFR 1.24 MG/DL (0.70-1.30); GLOMERULAR FILTRATION RATE > 60.0 (>60); GLUCOSE, FASTING 97 MG/DL (70-100); LIPASE 107 U/L (73-393); POTASSIUM SERUM 3.8 MEQ/L (3.5-5.1); SODIUM LEVEL 140 MEQ/L (136-145); TOTAL PROTEIN 7.9 GM/DL (6.4-8.2)
== END 2022-04-09 23:40 | disposition left against medical advice (07) ==
LOC: M ED 18:34
DX: Z53.21 Procedure and treatment not carried out due to patient leaving prior to being seen by health care provider (principal)

== ENCOUNTER → 2022-06-17 | Outpatient (CLI) | payer OTHER ==
[~2022-06-17] MED LIST changes: +GASTROGRAFIN SOLUTION 30ML As Ordered ONE; +ISOVUE-370 76% 100ML VIAL As Ordered ONE
== END ==
LOC: M RAD 15:33
PROVIDERS: ATTEND Surgery
DX: R10.84 Generalized abdominal pain (principal)

== ENCOUNTER → 2022-07-15 | Outpatient (REF) | payer OTHER ==
[~2022-07-15] MED LIST changes: -GASTROGRAFIN SOLUTION 30ML As Ordered ONE; -ISOVUE-370 76% 100ML VIAL As Ordered ONE
[2022-07-15 13:52] LABS: ALBUMIN 3.6 G/DL (3.2-5.2); ALKALINE PHOSPHATASE 120 U/L (46-116); ALT/SGPT 28 U/L (7.0-40); AST/SGOT 21 U/L (<34); BILIRUBIN,TOTAL 0.3 MG/DL (0.3-1.2); BLOOD UREA NITROGEN 12 MG/DL (9-23); CALCIUM LEVEL 8.7 MG/DL (8.5-10.1); CARBON DIOXIDE LEVEL 24 MMOL/L (20-31); CHLORIDE LEVEL 102 MMOL/L (98-107); CHOLESTEROL LEVEL 143 MG/DL (<200); CREATININE FOR GFR 0.91 MG/DL (0.70-1.30); GLOMERULAR FILTRATION RATE > 60.0 (>60); GLUCOSE, FASTING 108 MG/DL (60-100); HDL CHOLESTEROL 25.5 MG/DL (>40); NON-HDL-C 118 MG/DL; POTASSIUM SERUM 4.3 MMOL/L (3.5-5.1); SODIUM LEVEL 139 MMOL/L (136-145); TOTAL PROTEIN 7.4 G/DL (5.7-8.2); TRIGLYCERIDES LEVEL 439 MG/DL (<150)
[2022-07-15 13:54] LABS: THYROID STIMULATING HORMONE 1.043 uIU/ML (0.55-4.78)
[2022-07-15 14:19] LABS: HIV 1&2 SCREEN CENTAUR NEGATIVE (NEGATIVE)
== END ==
LOC: M LAB REF 12:45
PROVIDERS: ATTEND Family Medicine Addiction Medicine
DX: Z11.4 Encounter for screening for human immunodeficiency virus [HIV] (principal); I10 Essential (primary) hypertension

== ENCOUNTER 2022-07-26 05:32 | Emergency (ER) | payer OTHER ==
[~2022-07-26] VITALS: Ht 165.1 cm; Wt 167.6 kg
[2022-07-26 08:00] LABS: BASO % 0.1 % (0.0-1.0); EOS # 0.2 10^3/uL (0.0-0.5); HEMATOCRIT 48.3 % (42.0-52.0); HEMOGLOBIN 14.8 g/dl (13.5-17.5); LYMPH # 0.9 10^3/uL (1.5-5.0); LYMPH % 11.9 % (24.0-44.0); MEAN CORPUSCULAR HGB CONC 30.6 g/dl (32.0-36.5); MEAN CORPUSCULAR VOLUME 81.5 fl (80.0-96.0); MONO # 0.3 10^3/uL (0.0-0.8); MONO % 3.9 % (2.0-8.0); NEUTROPHILS # 6.3 10^3/uL (1.5-8.5); NEUTROPHILS % 80.8 % (36.0-66.0); PLATELET COUNT, AUTOMATED 146 10^3/uL (150-450); RED BLOOD COUNT 5.93 10^6/uL (4.30-6.10); WHITE BLOOD COUNT 7.7 10^3/uL (4.0-10.0)
[2022-07-26] MEDS ORDERED: ONDANSETRON 4MG 2ML VIAL IV ONE (08:10)
[2022-07-26] MEDS ORDERED: NS 1,000 ML IV ONE (08:10)
[2022-07-26 08:24] LABS: LIPASE 56 U/L (12-53)
[2022-07-26 08:26] LABS: ALBUMIN 3.9 G/DL (3.2-5.2); ALKALINE PHOSPHATASE 123 U/L (46-116); ALT/SGPT 33 U/L (7.0-40); AST/SGOT 24 U/L (<34); BILIRUBIN,DIRECT 0.2 MG/DL (<0.4); BILIRUBIN,TOTAL 0.6 MG/DL (0.3-1.2); BLOOD UREA NITROGEN 16 MG/DL (9-23); CALCIUM LEVEL 8.9 MG/DL (8.5-10.1); CARBON DIOXIDE LEVEL 25 MMOL/L (20-31); CHLORIDE LEVEL 105 MMOL/L (98-107); CREATININE FOR GFR 0.89 MG/DL (0.70-1.30); GLOMERULAR FILTRATION RATE > 60.0 (>60); GLUCOSE, FASTING 126 MG/DL (60-100); POTASSIUM SERUM 4.5 MMOL/L (3.5-5.1); SODIUM LEVEL 140 MMOL/L (136-145); TOTAL PROTEIN 7.9 G/DL (5.7-8.2)
[2022-07-26 09:43] VITALS: BP 138/74
[2022-07-26] MEDS ORDERED: ONDA4TAB6 PO (09:56)
== END 2022-07-26 10:26 | disposition home or self-care (01) ==
LOC: M ED 05:32
DX: R11.2 Nausea with vomiting, unspecified (principal); R19.7 Diarrhea, unspecified; I44.4 Left anterior fascicular block; F17.200 Nicotine dependence, unspecified, uncomplicated; Z79.899 Other long term (current) drug therapy
CPT/HCPCS: 74021; 80048; 80076; 83690; 85025; 93005; 96361; 96374; 99284; J2405

== ENCOUNTER → 2022-09-11 | Outpatient (CLI) | payer OTHER ==
[~2022-09-11] MED LIST changes: +ONDA4TAB6 PO
== END ==
LOC: M RAD 09:58
PROVIDERS: ATTEND Surgery
DX: B96.81 Helicobacter pylori [H. pylori] as the cause of diseases classified elsewhere (principal); K29.70 Gastritis, unspecified, without bleeding; Z68.44 Body mass index [BMI] 60.0-69.9, adult
CPT/HCPCS: 78264; A9541

== ENCOUNTER 2022-09-17 08:54 | Emergency (ER) | payer OTHER ==
[~2022-09-17] VITALS: Ht 165.1 cm; Wt 164.5 kg
[2022-09-17 10:45] VITALS: BP 159/88
[2022-09-17] MEDS ORDERED: KETOROLAC 30 MG/ML 1ML VIAL IV ONE (10:50)
[2022-09-17] MEDS ORDERED: LIDOCAINE 5% (LIDODERM) PATCH TD ONE (10:50)
[2022-09-17] MEDS ORDERED: NS 1,000 ML IV ONE (10:55)
[2022-09-17 11:34] LABS: BASO % 0.4 % (0.0-1.0); EOS # 0.3 10^3/uL (0.0-0.5); EOS % 4.3 % (0.0-3.0); HEMATOCRIT 44.4 % (42.0-52.0); HEMOGLOBIN 13.9 g/dl (13.5-17.5); LYMPH # 2.4 10^3/uL (1.5-5.0); LYMPH % 34.7 % (24.0-44.0); MEAN CORPUSCULAR HEMOGLOBIN 25.3 pg (27.0-33.0); MEAN CORPUSCULAR HGB CONC 31.3 g/dl (32.0-36.5); MEAN CORPUSCULAR VOLUME 80.9 fl (80.0-96.0); MONO # 0.3 10^3/uL (0.0-0.8); NEUTROPHILS # 3.8 10^3/uL (1.5-8.5); NEUTROPHILS % 55.3 % (36.0-66.0); PLATELET COUNT, AUTOMATED 150 10^3/uL (150-450); RED BLOOD COUNT 5.49 10^6/uL (4.30-6.10); WHITE BLOOD COUNT 6.8 10^3/uL (4.0-10.0)
[2022-09-17 11:58] LABS: CK-MB VALUE MASS 3.5 NG/ML (<3.6)
[2022-09-17 11:59] LABS: MB/CK RELATIVE INDEX 0.64 (< OR =4)
[2022-09-17] MEDS ORDERED: ISOVUE-370 76% 100ML VIAL As Ordered ONE (12:03)
[2022-09-17] MEDS ORDERED: ASPE4PAD TOP (12:52)
[2022-09-17] MEDS ORDERED: BIOF4GEL4 TOP (12:52)
== END 2022-09-17 13:31 | disposition home or self-care (01) ==
LOC: M ED 08:54
DX: R07.89 Other chest pain (principal); I51.7 Cardiomegaly; I25.2 Old myocardial infarction; K21.9 Gastro-esophageal reflux disease without esophagitis; F17.200 Nicotine dependence, unspecified, uncomplicated; Z79.899 Other long term (current) drug therapy
CPT/HCPCS: 71046; 71275; 80047; 82550; 82553; 85025; 85379; 93005; 96374; 99283; J1885; Q9967

== ENCOUNTER 2022-09-21 09:20 | Emergency (ER) | payer OTHER ==
[~2022-09-21] VITALS: Ht 165.1 cm; Wt 164.0 kg
[~2022-09-21 09:20] MED LIST changes: +ASPE4PAD TOP; +BIOF4GEL4 TOP
[2022-09-21 10:27] LABS: BASO % 0.5 % (0.0-1.0); EOS # 0.3 10^3/uL (0.0-0.5); HEMATOCRIT 45.7 % (42.0-52.0); HEMOGLOBIN 14.3 g/dl (13.5-17.5); LYMPH # 1.9 10^3/uL (1.5-5.0); LYMPH % 29.1 % (24.0-44.0); MEAN CORPUSCULAR HEMOGLOBIN 25.2 pg (27.0-33.0); MEAN CORPUSCULAR HGB CONC 31.3 g/dl (32.0-36.5); MEAN CORPUSCULAR VOLUME 80.5 fl (80.0-96.0); MONO # 0.3 10^3/uL (0.0-0.8); MONO % 4.3 % (2.0-8.0); NEUTROPHILS # 4.1 10^3/uL (1.5-8.5); NEUTROPHILS % 61.8 % (36.0-66.0); PLATELET COUNT, AUTOMATED 157 10^3/uL (150-450); RED BLOOD COUNT 5.68 10^6/uL (4.30-6.10); WHITE BLOOD COUNT 6.6 10^3/uL (4.0-10.0)
[2022-09-21 10:32] LABS: ERYTHROCYTE SEDIMENTATION RATE 76 mm/hr (0-15)
[2022-09-21 10:55] LABS: BLOOD UREA NITROGEN 13 MG/DL (9-23); CALCIUM LEVEL 8.6 MG/DL (8.5-10.1); CARBON DIOXIDE LEVEL 28 MMOL/L (20-31); CHLORIDE LEVEL 103 MMOL/L (98-107); CREATININE FOR GFR 0.88 MG/DL (0.70-1.30); GLOMERULAR FILTRATION RATE > 60.0 (>60); GLUCOSE, FASTING 132 MG/DL (60-100); POTASSIUM SERUM 4.1 MMOL/L (3.5-5.1); SODIUM LEVEL 137 MMOL/L (136-145)
[2022-09-21] MEDS ORDERED: MUPI30CR TOP (11:35)
[2022-09-21] MEDS ORDERED: CEPH500C PO (11:35)
[2022-09-21 11:43] VITALS: BP 148/86
[2022-09-21 12:13] LABS: HEMOGLOBIN A1c 5.7 % (4.0-6.0)
== END 2022-09-21 12:15 | disposition home or self-care (01) ==
LOC: M ED 09:20
DX: L97.519 Non-pressure chronic ulcer of other part of right foot with unspecified severity (principal); K21.9 Gastro-esophageal reflux disease without esophagitis; F17.200 Nicotine dependence, unspecified, uncomplicated; Z87.442 Personal history of urinary calculi; Z86.74 Personal history of sudden cardiac arrest; Z79.2 Long term (current) use of antibiotics; Z79.899 Other long term (current) drug therapy

== ENCOUNTER → 2022-09-30 | Outpatient (REF) | payer OTHER ==
[~2022-09-30] MED LIST changes: +CEPH500C PO; +MUPI30CR TOP
== END ==
LOC: M LAB REF 09:03
PROVIDERS: ATTEND Surgery
DX: R11.2 Nausea with vomiting, unspecified (principal); R10.84 Generalized abdominal pain; B96.81 Helicobacter pylori [H. pylori] as the cause of diseases classified elsewhere

== ENCOUNTER 2022-11-12 10:51 | Day surgery (SDC) | payer OTHER ==
[~2022-11-12] VITALS: Ht 165.1 cm; Wt 164.2 kg
[~2022-11-12 10:51] MED LIST changes: -FAMO40TA3; +FAMO40TA3 PO
[2022-11-12] MEDS ORDERED: GLYCOPYRROLATE INJ 0.2 MG/ML 2 ML VIAL As Ordered ONE (12:02)
[2022-11-12] MEDS ORDERED: KETAMINE HCL 200MG/20ML VIAL As Ordered ONE (12:05)
[2022-11-12] MEDS ORDERED: LIDOCAINE 2% 100MG/5ML SDV (FOR ANES.) As Ordered ONE (13:10)
[2022-11-12] MEDS ORDERED: propofoL 200 MG/20 ML VIAL As Ordered ONE (13:10)
[2022-11-12] MEDS ORDERED: fentaNYL 100 MCG/2 ML INJECTION As Ordered ONE (13:10)
[2022-11-12 13:37] VITALS: BP 163/81
== END 2022-11-12 14:09 | disposition home or self-care (01) ==
LOC: M OPP 10:51
PROVIDERS: ATTEND Surgery
DX: K31.89 Other diseases of stomach and duodenum (principal); B96.81 Helicobacter pylori [H. pylori] as the cause of diseases classified elsewhere; Z79.02 Long term (current) use of antithrombotics/antiplatelets; Z79.1 Long term (current) use of non-steroidal anti-inflammatories (NSAID); Z79.2 Long term (current) use of antibiotics; G47.33 Obstructive sleep apnea (adult) (pediatric)
CPT/HCPCS: 43239; 88305; J3010

== ENCOUNTER 2023-02-10 08:37 | Emergency (ER) | payer OTHER ==
[~2023-02-10] VITALS: Ht 180.3 cm; Wt 165.4 kg
[2023-02-10 09:11] LABS: BASO % 0.5 % (0.0-1.0); EOS # 0.3 10^3/uL (0.0-0.5); EOS % 4.1 % (0.0-3.0); HEMATOCRIT 41.8 % (42.0-52.0); HEMOGLOBIN 13.3 g/dl (13.5-17.5); LYMPH % 30.2 % (24.0-44.0); MEAN CORPUSCULAR HGB CONC 31.8 g/dl (32.0-36.5); MEAN CORPUSCULAR VOLUME 81.8 fl (80.0-96.0); MONO # 0.3 10^3/uL (0.0-0.8); NEUTROPHILS % 60.7 % (36.0-66.0); PLATELET COUNT, AUTOMATED 144 10^3/uL (150-450); RED BLOOD COUNT 5.11 10^6/uL (4.30-6.10); WHITE BLOOD COUNT 6.6 10^3/uL (4.0-10.0)
[2023-02-10 09:32] LABS: LIPASE 31 U/L (12-53)
[2023-02-10 09:34] LABS: ALBUMIN 3.6 G/DL (3.2-5.2); ALKALINE PHOSPHATASE 108 U/L (46-116); ALT/SGPT 30 U/L (7.0-40); AST/SGOT 19 U/L (<34); BILIRUBIN,DIRECT 0.1 MG/DL (<0.4); BILIRUBIN,TOTAL 0.4 MG/DL (0.3-1.2); BLOOD UREA NITROGEN 13 MG/DL (9-23); CALCIUM LEVEL 8.2 MG/DL (8.5-10.1); CARBON DIOXIDE LEVEL 27 MMOL/L (20-31); CHLORIDE LEVEL 103 MMOL/L (98-107); CK-MB VALUE MASS 5.2 NG/ML (<3.6); CREATININE FOR GFR 0.86 MG/DL (0.70-1.30); GLOMERULAR FILTRATION RATE > 60.0 (>60); GLUCOSE, FASTING 123 MG/DL (60-100); POTASSIUM SERUM 4.1 MMOL/L (3.5-5.1); SODIUM LEVEL 138 MMOL/L (136-145); TOTAL PROTEIN 7.3 G/DL (5.7-8.2)
[2023-02-10 09:36] LABS: THYROID STIMULATING HORMONE 0.789 uIU/ML (0.55-4.78)
[2023-02-10 09:39] LABS: CPK CREATINE PHOSPHOKINASE 716 U/L (46-171); MB/CK RELATIVE INDEX 0.72 (< OR =4)
[2023-02-10] MEDS ORDERED: NS 1,000 ML IV ONE (11:05)
[2023-02-10] MEDS ORDERED: ISOVUE-370 76% 100ML VIAL As Ordered ONE (11:12)
[2023-02-10 11:30] VITALS: BP 154/81; TEMP 96.9; O2SAT 99
[2023-02-10 11:53] LABS: CK-MB VALUE MASS 5.6 NG/ML (<3.6)
[2023-02-10 11:58] LABS: MB/CK RELATIVE INDEX 0.79 (< OR =4)
[2023-02-10 12:09] LABS: RSV AMPLIFICATION NEGATIVE (NEGATIVE)
[2023-02-10] MEDS ORDERED: BENZ200C70 PO (13:08)
[2023-02-10] MEDS ORDERED: BENZONATATE 100MG CAPSULE PO ONE (13:10)
== END 2023-02-10 13:22 | disposition home or self-care (01) ==
LOC: M ED 08:37
DX: R07.89 Other chest pain (principal); R05.9 Cough, unspecified; R74.8 Abnormal levels of other serum enzymes; I25.2 Old myocardial infarction; E11.9 Type 2 diabetes mellitus without complications; I10 Essential (primary) hypertension; K21.9 Gastro-esophageal reflux disease without esophagitis; G47.33 Obstructive sleep apnea (adult) (pediatric); F17.200 Nicotine dependence, unspecified, uncomplicated
CPT/HCPCS: 71046; 71260; 80048; 80076; 82550; 82553; 83690; 83880; 84439; 84443; 85025; 87631; 93005; 96360; 96361; 99284; Q9967

== ENCOUNTER → 2023-05-22 | Outpatient (CLI) | payer OTHER ==
[~2023-05-22] MED LIST changes: +BENZ200C70 PO; +GASTROGRAFIN SOLUTION 30ML As Ordered ONE; +ISOVUE-370 76% 100ML VIAL As Ordered ONE
== END ==
LOC: M RAD 13:27
PROVIDERS: ATTEND Surgery
DX: K43.2 Incisional hernia without obstruction or gangrene (principal)
CPT/HCPCS: 74177; Q9963; Q9967

== ENCOUNTER → 2023-08-14 | Outpatient (REF) | payer OTHER ==
[~2023-08-14] MED LIST changes: -GASTROGRAFIN SOLUTION 30ML As Ordered ONE; -ISOVUE-370 76% 100ML VIAL As Ordered ONE
[2023-08-14 13:12] LABS: ALBUMIN 3.5 G/DL (3.2-5.2); ALKALINE PHOSPHATASE 116 U/L (46-116); ALT/SGPT 37 U/L (7.0-40); AST/SGOT 18 U/L (<34); BILIRUBIN,TOTAL 0.4 MG/DL (0.3-1.2); BLOOD UREA NITROGEN 8 MG/DL (9-23); CALCIUM LEVEL 8.7 MG/DL (8.5-10.1); CARBON DIOXIDE LEVEL 30 MMOL/L (20-31); CHLORIDE LEVEL 105 MMOL/L (98-107); CHOLESTEROL LEVEL 126 MG/DL (<200); CHOLESTEROL RISK RATIO 5.25 (<5); CREATININE FOR GFR 0.99 MG/DL (0.70-1.30); GLOMERULAR FILTRATION RATE > 60.0 (>60); GLUCOSE, FASTING 108 MG/DL (60-100); LDL CHOLESTEROL 41.2 MG/DL (<100); POTASSIUM SERUM 4.1 MMOL/L (3.5-5.1); SODIUM LEVEL 140 MMOL/L (136-145); TOTAL PROTEIN 7.3 G/DL (5.7-8.2); TRIGLYCERIDES LEVEL 304 MG/DL (<150)
[2023-08-14 13:15] LABS: THYROID STIMULATING HORMONE 0.465 uIU/ML (0.55-4.78)
[2023-08-14 13:45] LABS: HIV 1&2 SCREEN NEGATIVE (NEGATIVE)
== END ==
LOC: M LAB REF 12:36
PROVIDERS: ATTEND Family Medicine Addiction Medicine
DX: I10 Essential (primary) hypertension (principal)

== ENCOUNTER 2023-09-23 08:23 | Emergency (ER) | payer OTHER ==
[~2023-09-23] VITALS: Ht 165.1 cm; Wt 160.3 kg
[2023-09-23] MEDS ORDERED: NAPR375T5 PO (08:34)
[2023-09-23] MEDS ORDERED: NAPR-849 PO (08:34)
[2023-09-23] MEDS: ACETAMINOPHEN 500 MG TAB PO ONE (11:51)
[2023-09-23 13:05] VITALS: BP 161/89; TEMP 97.6; O2SAT 98
== END 2023-09-23 13:14 | disposition home or self-care (01) ==
LOC: M ED 08:23
DX: S83.92XA Sprain of unspecified site of left knee, initial encounter (principal); W18.2XXA Fall in (into) shower or empty bathtub, initial encounter; I10 Essential (primary) hypertension; F17.200 Nicotine dependence, unspecified, uncomplicated; Y92.009 Unspecified place in unspecified non-institutional (private) residence as the place of occurrence of the external cause; Y93.E8 Activity, other personal hygiene; Y99.9 Unspecified external cause status; Z79.1 Long term (current) use of non-steroidal anti-inflammatories (NSAID)

== ENCOUNTER → 2023-10-02 | Outpatient (REF) | payer OTHER ==
[~2023-10-02] MED LIST changes: +NAPR-849 PO; +NAPR375T5 PO
[2023-10-02 17:53] LABS: HEMOGLOBIN A1c 5.6 % (4.0-6.0)
[2023-10-02 18:06] LABS: ALBUMIN 3.6 G/DL (3.2-5.2); ALKALINE PHOSPHATASE 125 U/L (46-116); ALT/SGPT 23 U/L (7.0-40); AST/SGOT 11 U/L (<34); BILIRUBIN,TOTAL 0.3 MG/DL (0.3-1.2); BLOOD UREA NITROGEN 11 MG/DL (9-23); CALCIUM LEVEL 8.8 MG/DL (8.5-10.1); CARBON DIOXIDE LEVEL 32 MMOL/L (20-31); CHLORIDE LEVEL 105 MMOL/L (98-107); CHOLESTEROL LEVEL 160 MG/DL (<200); CHOLESTEROL RISK RATIO 6.63 (<5); CREATININE FOR GFR 0.88 MG/DL (0.70-1.30); GLOMERULAR FILTRATION RATE > 60.0 (>60); GLUCOSE, FASTING 128 MG/DL (60-100); HDL CHOLESTEROL 24.1 MG/DL (>40); NON-HDL-C 135.9 MG/DL; POTASSIUM SERUM 4.7 MMOL/L (3.5-5.1); SODIUM LEVEL 138 MMOL/L (136-145); TOTAL PROTEIN 7.1 G/DL (5.7-8.2); TRIGLYCERIDES LEVEL 412 MG/DL (<150)
[2023-10-02 18:09] LABS: FREE T4 0.93 NG/DL (0.89-1.76); THYROID STIMULATING HORMONE 1.164 uIU/ML (0.55-4.78)
== END ==
LOC: M LAB REF 15:59
PROVIDERS: ATTEND Family Medicine Addiction Medicine
DX: R94.6 Abnormal results of thyroid function studies (principal); R73.9 Hyperglycemia, unspecified

== ENCOUNTER 2023-11-02 12:11 | Emergency (ER) | payer OTHER ==
[~2023-11-02] VITALS: Ht 165.1 cm; Wt 160.1 kg
[2023-11-02] MEDS ORDERED: MELO15TA28 (12:23)
[2023-11-02 15:03] VITALS: BP 148/97; TEMP 97; O2SAT 97
[2023-11-02] MEDS: BACITRACIN OINTMENT 30GM TUBE TOP ONE (16:38)
== END 2023-11-02 16:41 | disposition home or self-care (01) ==
LOC: M ED 12:11
DX: T22.211A Burn of second degree of right forearm, initial encounter (principal); I25.2 Old myocardial infarction; I10 Essential (primary) hypertension; E11.9 Type 2 diabetes mellitus without complications; F17.210 Nicotine dependence, cigarettes, uncomplicated; Z79.899 Other long term (current) drug therapy; T31.0 Burns involving less than 10% of body surface

== ENCOUNTER → 2023-11-26 | Outpatient (REF) | payer OTHER ==
[~2023-11-26] MED LIST changes: +MELO15TA28
== END ==
LOC: M LAB REF 10:47
PROVIDERS: ATTEND Nurse Practitioner Family
DX: R19.7 Diarrhea, unspecified (principal); B96.81 Helicobacter pylori [H. pylori] as the cause of diseases classified elsewhere

== ENCOUNTER 2024-01-04 12:27 | Emergency (ER) | payer OTHER ==
[~2024-01-04] VITALS: Ht 165.1 cm; Wt 163.7 kg
[~2024-01-04 12:27] MED LIST changes: +ONDA-282 PO; -ONDA4TAB6 PO
[2024-01-04 16:30] VITALS: BP 166/105; TEMP 97.8; O2SAT 95
[2024-01-04] MEDS: NORCO, ANEXSIA 5/325MG TABLET (HYDROcodone/ACETAMINOPHEN) PO ONE (16:37)
[2024-01-04] MEDS: BACITRACIN OINTMENT 30GM TUBE TOP PRN (16:37)
[2024-01-04] MEDS ORDERED: BACI500O8 TOP (16:42)
[2024-01-04] MEDS ORDERED: HYDR-3713 PO (16:42)
== END 2024-01-04 17:08 | disposition home or self-care (01) ==
LOC: M ED 12:27
DX: T25.222A Burn of second degree of left foot, initial encounter (principal); X19.XXXA Contact with other heat and hot substances, initial encounter; I10 Essential (primary) hypertension; E11.9 Type 2 diabetes mellitus without complications; J44.9 Chronic obstructive pulmonary disease, unspecified; F17.200 Nicotine dependence, unspecified, uncomplicated; Y92.9 Unspecified place or not applicable; Y93.89 Activity, other specified; Y99.0 Civilian activity done for income or pay; Z79.1 Long term (current) use of non-steroidal anti-inflammatories (NSAID); Z79.2 Long term (current) use of antibiotics; Z79.899 Other long term (current) drug therapy; T31.0 Burns involving less than 10% of body surface

== ENCOUNTER 2024-01-06 20:59 | Emergency (ER) | payer OTHER ==
[~2024-01-06] VITALS: Ht 165.1 cm; Wt 163.6 kg
[~2024-01-06 20:59] MED LIST changes: +BACI500O8 TOP; +HYDR-3713 PO
[2024-01-06 23:20] VITALS: O2SAT 97
[2024-01-07 00:19] LABS: BLOOD UREA NITROGEN 11 MG/DL (9-23); CALCIUM LEVEL 8.7 MG/DL (8.5-10.1); CARBON DIOXIDE LEVEL 28 MMOL/L (20-31); CHLORIDE LEVEL 105 MMOL/L (98-107); CREATININE FOR GFR 1.03 MG/DL (0.70-1.30); GLOMERULAR FILTRATION RATE > 60.0 (>60); GLUCOSE, FASTING 80 MG/DL (60-100); SODIUM LEVEL 139 MMOL/L (136-145)
[2024-01-07 00:45] LABS: BASO % 0.4 % (0.0-1.0); EOS # 0.2 10^3/uL (0.0-0.5); EOS % 2.7 % (0.0-3.0); HEMOGLOBIN 14.4 g/dl (13.5-17.5); LYMPH # 1.3 10^3/uL (1.5-5.0); MEAN CORPUSCULAR HEMOGLOBIN 26.2 pg (27.0-33.0); MEAN CORPUSCULAR VOLUME 81.8 fl (80.0-96.0); MONO # 0.5 10^3/uL (0.0-0.8); MONO % 7.2 % (2.0-8.0); NEUTROPHILS # 4.8 10^3/uL (1.5-8.5); PLATELET COUNT, AUTOMATED 158 10^3/uL (150-450); WHITE BLOOD COUNT 6.9 10^3/uL (4.0-10.0)
[2024-01-07] MEDS ORDERED: CEPH500C PO (01:08)
[2024-01-07] MEDS: CEPHALEXIN 500 MG CAP PO ONE (01:18)
[2024-01-07 01:44] VITALS: BP 145/86; TEMP 98.1
== END 2024-01-07 01:46 | disposition home or self-care (01) ==
LOC: M ED 20:59
DX: Z48.00 Encounter for change or removal of nonsurgical wound dressing (principal); T25.222D Burn of second degree of left foot, subsequent encounter; E11.9 Type 2 diabetes mellitus without complications; I10 Essential (primary) hypertension; I25.2 Old myocardial infarction; K21.9 Gastro-esophageal reflux disease without esophagitis; Z87.442 Personal history of urinary calculi; F17.200 Nicotine dependence, unspecified, uncomplicated; F10.10 Alcohol abuse, uncomplicated; Z79.1 Long term (current) use of non-steroidal anti-inflammatories (NSAID); Z79.2 Long term (current) use of antibiotics; Z79.899 Other long term (current) drug therapy

== ENCOUNTER 2024-01-17 06:46 | Emergency (ER) | payer OTHER ==
[~2024-01-17] VITALS: Ht 165.1 cm; Wt 162.9 kg
[2024-01-17 10:11] VITALS: BP 168/92; TEMP 97.8; O2SAT 94
== END 2024-01-17 10:15 | disposition home or self-care (01) ==
LOC: M ED 06:46
DX: Z48.00 Encounter for change or removal of nonsurgical wound dressing (principal); I25.2 Old myocardial infarction; K21.9 Gastro-esophageal reflux disease without esophagitis; E11.9 Type 2 diabetes mellitus without complications; F17.200 Nicotine dependence, unspecified, uncomplicated; Z86.79 Personal history of other diseases of the circulatory system; Z79.899 Other long term (current) drug therapy

== ENCOUNTER 2024-02-12 11:14 | Day surgery (SDC) | payer OTHER ==
[~2024-02-12] VITALS: Ht 165.1 cm; Wt 160.5 kg
[~2024-02-12 11:14] MED LIST changes: +ESOM40CA35 PO
[2024-02-12] MEDS: NS 1,000 ML IV ONE (12:26)
[2024-02-12] MEDS ORDERED: LIDOCAINE 2% 100MG/5ML SDV (FOR ANES.) As Ordered ONE (13:30)
[2024-02-12] MEDS ORDERED: propofoL 200 MG/20 ML VIAL As Ordered ONE (13:30)
[2024-02-12 14:24] VITALS: TEMP 98.2
[2024-02-12 14:45] VITALS: BP 144/81; O2SAT 96
== END 2024-02-12 14:49 | disposition home or self-care (01) ==
LOC: M OPP 11:14
PROVIDERS: ATTEND Internal Medicine Gastroenterology
DX: D12.8 Benign neoplasm of rectum (principal); K64.8 Other hemorrhoids; R19.4 Change in bowel habit; K44.9 Diaphragmatic hernia without obstruction or gangrene; K29.70 Gastritis, unspecified, without bleeding; Z86.19 Personal history of other infectious and parasitic diseases; G47.30 Sleep apnea, unspecified; F17.210 Nicotine dependence, cigarettes, uncomplicated; I25.2 Old myocardial infarction; I10 Essential (primary) hypertension; Z79.82 Long term (current) use of aspirin; Z79.899 Other long term (current) drug therapy; Z90.49 Acquired absence of other specified parts of digestive tract

== ENCOUNTER 2024-04-09 17:33 | Emergency (ER) | payer OTHER ==
[~2024-04-09] VITALS: Ht 165.1 cm; Wt 164.2 kg
[~2024-04-09 17:33] MED LIST changes: +GABA-1490 PO; -GABA600T4 PO
[2024-04-09] MEDS ORDERED: IBUP200C25 PO (17:41)
[2024-04-09] MEDS ORDERED: KETOROLAC 30 MG/ML 1ML VIAL IV ONE (19:15)
[2024-04-09] MEDS ORDERED: CYCL5TAB PO (19:57)
[2024-04-09] MEDS: KETOROLAC 30 MG/ML 1ML VIAL IM ONE (19:57)
[2024-04-09] MEDS ORDERED: IBUP-1022 PO (19:57)
[2024-04-09] MEDS: ACETAMINOPHEN 500 MG TAB PO ONE (19:57)
[2024-04-09 20:20] VITALS: BP 140/88; TEMP 98.4; O2SAT 98
== END 2024-04-09 20:20 | disposition home or self-care (01) ==
LOC: M ED 17:33
DX: S39.012A Strain of muscle, fascia and tendon of lower back, initial encounter (principal); X50.0XXA Overexertion from strenuous movement or load, initial encounter; K21.9 Gastro-esophageal reflux disease without esophagitis; Z90.89 Acquired absence of other organs; F17.200 Nicotine dependence, unspecified, uncomplicated; Y92.9 Unspecified place or not applicable; Y93.89 Activity, other specified; Y99.9 Unspecified external cause status; Z79.899 Other long term (current) drug therapy; Z79.1 Long term (current) use of non-steroidal anti-inflammatories (NSAID)
CPT/HCPCS: 96372; 99283; J1885

== ENCOUNTER 2024-05-20 06:15 | Emergency (ER) | payer OTHER ==
[~2024-05-20] VITALS: Ht 165.1 cm; Wt 167.8 kg
[~2024-05-20 06:15] MED LIST changes: +CYCL5TAB4 PO; +GABA-1172 PO; -GABA-282 PO; +IBUP200C25 PO; +NAPR-1450 PO; -NAPR375T5 PO
[2024-05-20 07:39] LABS: BASO % 0.3 % (0.0-1.0); EOS # 0.4 10^3/uL (0.0-0.5); EOS % 2.8 % (0.0-3.0); HEMOGLOBIN 13.5 g/dl (13.5-17.5); LYMPH # 1.8 10^3/uL (1.5-5.0); LYMPH % 13.6 % (24.0-44.0); MEAN CORPUSCULAR HEMOGLOBIN 26.5 pg (27.0-33.0); MEAN CORPUSCULAR HGB CONC 32.1 g/dl (32.0-36.5); MEAN CORPUSCULAR VOLUME 82.4 fl (80.0-96.0); MONO # 0.6 10^3/uL (0.0-0.8); MONO % 4.2 % (2.0-8.0); NEUTROPHILS # 10.4 10^3/uL (1.5-8.5); NEUTROPHILS % 78.6 % (36.0-66.0); PLATELET COUNT, AUTOMATED 147 10^3/uL (150-450); WHITE BLOOD COUNT 13.2 10^3/uL (4.0-10.0)
[2024-05-20] MEDS: ONDANSETRON 4MG 2ML VIAL IV ONE (07:49)
[2024-05-20] MEDS: KETOROLAC 30 MG/ML 1ML VIAL IV ONE (07:49)
[2024-05-20 08:03] LABS: ALBUMIN 3.6 G/DL (3.2-5.2); BILIRUBIN,DIRECT 0.2 MG/DL (<0.4); BILIRUBIN,TOTAL 0.6 MG/DL (0.3-1.2); TOTAL PROTEIN 7.6 G/DL (5.7-8.2)
[2024-05-20] MEDS ORDERED: ISOVUE-370 76% 100ML VIAL As Ordered ONE (08:27)
[2024-05-20] MEDS: ACETAMINOPHEN *IV* 1,000 MG in IV 1 EA IV ONE (10:12)
[2024-05-20] MEDS ORDERED: CIPR-249 PO (11:22)
[2024-05-20] MEDS ORDERED: METR-265 PO (11:22)
[2024-05-20 11:34] VITALS: BP 144/100; TEMP 97; O2SAT 97
== END 2024-05-20 11:37 | disposition home or self-care (01) ==
LOC: M ED 06:15
DX: K57.32 Diverticulitis of large intestine without perforation or abscess without bleeding (principal); R16.2 Hepatomegaly with splenomegaly, not elsewhere classified; K76.0 Fatty (change of) liver, not elsewhere classified; R91.1 Solitary pulmonary nodule; K21.9 Gastro-esophageal reflux disease without esophagitis; I10 Essential (primary) hypertension; F17.200 Nicotine dependence, unspecified, uncomplicated; Z90.49 Acquired absence of other specified parts of digestive tract; Z90.89 Acquired absence of other organs; Z79.2 Long term (current) use of antibiotics; Z79.1 Long term (current) use of non-steroidal anti-inflammatories (NSAID); Z79.899 Other long term (current) drug therapy
CPT/HCPCS: 74177; 80047; 80076; 81001; 83690; 85025; 93041; 96374; 96375; 99284; J0131; J1885; J2405; Q9967

== ENCOUNTER 2024-10-21 13:26 | Emergency (ER) | payer MEDICAID, OTHER ==
[~2024-10-21] VITALS: Ht 165.1 cm; Wt 163.8 kg
[~2024-10-21 13:26] MED LIST changes: +CIPR-249 PO; +METR-265 PO
[2024-10-21 13:33] VITALS: BP 168/102; TEMP 97.9; O2SAT 98
[2024-10-21] MEDS ORDERED: FAMO40TA3 (13:42)
[2024-10-21] MEDS: diphenhydrAMINE 50MG/ML VIAL IV ONE (14:25)
[2024-10-21] MEDS: methylPREDNISolone 125MG 2ML VIAL IV ONE (14:25)
[2024-10-21] MEDS: ASPIRIN 81MG CHEW TABLET PO ONE (14:25)
[2024-10-21] MEDS: FAMOTIDINE 20MG/2ML VIAL IVP ONE (14:26)
[2024-10-21 14:48] LABS: BASO % 0.1 % (0.0-1.0); EOS # 0.2 10^3/uL (0.0-0.5); EOS % 2.2 % (0.0-3.0); HEMATOCRIT 44.9 % (42.0-52.0); HEMOGLOBIN 14.2 g/dl (13.5-17.5); LYMPH # 1.6 10^3/uL (1.5-5.0); LYMPH % 21.3 % (24.0-44.0); MEAN CORPUSCULAR HEMOGLOBIN 25.4 pg (27.0-33.0); MEAN CORPUSCULAR HGB CONC 31.6 g/dl (32.0-36.5); MEAN CORPUSCULAR VOLUME 80.2 fl (80.0-96.0); MONO # 0.3 10^3/uL (0.0-0.8); MONO % 4.5 % (2.0-8.0); NEUTROPHILS # 5.2 10^3/uL (1.5-8.5); NEUTROPHILS % 71.2 % (36.0-66.0); PLATELET COUNT, AUTOMATED 170 10^3/uL (150-450); WHITE BLOOD COUNT 7.3 10^3/uL (4.0-10.0)
[2024-10-21 15:18] LABS: LIPASE 113 U/L (12-53)
[2024-10-21 15:20] LABS: ALBUMIN 3.3 G/DL (3.2-5.2); ALKALINE PHOSPHATASE 109 U/L (40-129); ALT/SGPT 31 U/L (7.0-40); AST/SGOT 27 U/L (<34); BILIRUBIN,DIRECT 0.1 MG/DL (<0.4); BILIRUBIN,TOTAL 0.4 MG/DL (0.3-1.2); BLOOD UREA NITROGEN 11 MG/DL (9-23); CALCIUM LEVEL 8.5 MG/DL (8.5-10.1); CARBON DIOXIDE LEVEL 27 MMOL/L (20-31); CHLORIDE LEVEL 104 MMOL/L (98-107); CREATININE FOR GFR 0.78 MG/DL (0.70-1.30); GLOMERULAR FILTRATION RATE > 90.0 (>60); GLUCOSE, FASTING 118 MG/DL (60-100); POTASSIUM SERUM 4.3 MMOL/L (3.5-5.1); SODIUM LEVEL 140 MMOL/L (136-145); TOTAL PROTEIN 7.2 G/DL (5.7-8.2)
[2024-10-21 15:23] LABS: CPK CREATINE PHOSPHOKINASE 468 U/L (46-171); MB/CK RELATIVE INDEX 0.85 (< OR =4)
[2024-10-21] MEDS ORDERED: ISOVUE-370 76% 100ML VIAL As Ordered ONE (15:42)
[2024-10-21 16:10] LABS: CK-MB VALUE MASS 4.1 NG/ML (<3.6)
[2024-10-21 16:16] LABS: MB/CK RELATIVE INDEX 0.87 (< OR =4)
== END 2024-10-21 17:43 | disposition home or self-care (01) ==
LOC: M ED 13:26
DX: R07.89 Other chest pain (principal); R91.1 Solitary pulmonary nodule; R00.1 Bradycardia, unspecified; I44.4 Left anterior fascicular block; K76.0 Fatty (change of) liver, not elsewhere classified; R16.1 Splenomegaly, not elsewhere classified; K21.9 Gastro-esophageal reflux disease without esophagitis; F17.200 Nicotine dependence, unspecified, uncomplicated; Z79.899 Other long term (current) drug therapy
CPT/HCPCS: 71045; 71275; 74177; 80048; 80076; 82550; 82553; 83690; 84484; 85025; 93005; 93041; 94760; 96374; 96375; 99284; J1200; J1308; J2919; Q9967

== ENCOUNTER → 2024-10-26 | Outpatient (REF) | payer OTHER ==
[~2024-10-26] MED LIST changes: +FAMO40TA3
[2024-10-26 15:10] LABS: BASO % 0.2 % (0.0-1.0); EOS # 0.4 10^3/uL (0.0-0.5); EOS % 3.7 % (0.0-3.0); LYMPH # 2.1 10^3/uL (1.5-5.0); LYMPH % 21.6 % (24.0-44.0); MEAN CORPUSCULAR HEMOGLOBIN 25.3 pg (27.0-33.0); MEAN CORPUSCULAR HGB CONC 31.1 g/dl (32.0-36.5); MEAN CORPUSCULAR VOLUME 81.2 fl (80.0-96.0); MONO # 0.4 10^3/uL (0.0-0.8); MONO % 3.6 % (2.0-8.0); NEUTROPHILS # 6.8 10^3/uL (1.5-8.5); NEUTROPHILS % 70.6 % (36.0-66.0); PLATELET COUNT, AUTOMATED 206 10^3/uL (150-450); RED BLOOD COUNT 5.54 10^6/uL (4.30-6.10); WHITE BLOOD COUNT 9.6 10^3/uL (4.0-10.0)
[2024-10-26 15:21] LABS: ALBUMIN 3.6 G/DL (3.2-5.2); ALKALINE PHOSPHATASE 119 U/L (40-129); ALT/SGPT 32 U/L (7.0-40); AST/SGOT 21 U/L (<34); BILIRUBIN,TOTAL 0.2 MG/DL (0.3-1.2); BLOOD UREA NITROGEN 13 MG/DL (9-23); CALCIUM LEVEL 9.1 MG/DL (8.5-10.1); CARBON DIOXIDE LEVEL 30 MMOL/L (20-31); CHLORIDE LEVEL 100 MMOL/L (98-107); CHOLESTEROL LEVEL 223 MG/DL (<200); CHOLESTEROL RISK RATIO 8.38 (<5); CREATININE FOR GFR 0.85 MG/DL (0.70-1.30); GLOMERULAR FILTRATION RATE > 90.0 (>60); GLUCOSE, FASTING 168 MG/DL (60-100); HDL CHOLESTEROL 26.6 MG/DL (>40); NON-HDL-C 196.4 MG/DL; POTASSIUM SERUM 4.5 MMOL/L (3.5-5.1); SODIUM LEVEL 136 MMOL/L (136-145); TOTAL PROTEIN 7.6 G/DL (5.7-8.2); TRIGLYCERIDES LEVEL 1191 MG/DL (<150)
== END ==
LOC: M LAB REF 14:06
PROVIDERS: ATTEND Family Medicine Addiction Medicine
DX: E66.01 Morbid (severe) obesity due to excess calories (principal)

== ENCOUNTER → 2024-11-11 | Outpatient (CLI) | payer OTHER ==
[2024-11-11 13:48] LABS: HEMOGLOBIN A1c 6.7 % (4.0-6.0)
== END ==
LOC: M LAB 12:55
PROVIDERS: ATTEND Family Medicine Addiction Medicine
DX: R73.03 Prediabetes (principal)

== ENCOUNTER 2024-11-25 14:40 | Emergency (ER) | payer OTHER ==
[~2024-11-25] VITALS: Ht 165.1 cm; Wt 150.0 kg
[~2024-11-25 14:40] MED LIST changes: +LIDO1ADH93 TOP; -LIDO5DIS41 TOP
[2024-11-25 15:23] LABS: BASO % 0.2 % (0.0-1.0); EOS # 0.2 10^3/uL (0.0-0.5); EOS % 2.2 % (0.0-3.0); HEMATOCRIT 37.8 % (42.0-52.0); HEMOGLOBIN 11.7 g/dl (13.5-17.5); LYMPH # 1.6 10^3/uL (1.5-5.0); LYMPH % 15.6 % (24.0-44.0); MEAN CORPUSCULAR HEMOGLOBIN 25.5 pg (27.0-33.0); MEAN CORPUSCULAR VOLUME 82.4 fl (80.0-96.0); MONO # 0.4 10^3/uL (0.0-0.8); NEUTROPHILS % 77.5 % (36.0-66.0); PLATELET COUNT, AUTOMATED 154 10^3/uL (150-450); RED BLOOD COUNT 4.59 10^6/uL (4.30-6.10); WHITE BLOOD COUNT 10.3 10^3/uL (4.0-10.0)
[2024-11-25 15:54] LABS: ALBUMIN 3.2 G/DL (3.2-5.2); BILIRUBIN,DIRECT 0.3 MG/DL (<0.4); BILIRUBIN,TOTAL 0.8 MG/DL (0.3-1.2); TOTAL PROTEIN 6.8 G/DL (5.7-8.2)
[2024-11-25] MEDS ORDERED: ISOVUE-370 76% 100ML VIAL As Ordered ONE (17:41)
[2024-11-25] MEDS: MORPHINE 4 MG/ML 1ML VIAL IV ONE (17:48)
[2024-11-25] MEDS: SUCRALFATE SUSP 1GM/10ML UD PO ONE (18:06)
[2024-11-25] MEDS: MAALOX 30 ML SUSP *UDC PO ONE (18:06)
[2024-11-25] MEDS: PANTOPRAZOLE 40MG VIAL IV ONE (18:06)
[2024-11-25] MEDS ORDERED: OXYC1TAB23 PO (20:42)
[2024-11-25] MEDS ORDERED: COLA100C5 PO (20:42)
[2024-11-25] MEDS: OXYCODONE/APAP 5MG/325MG(HOME DOSE PACK) PO ONE (20:45)
[2024-11-25 21:02] VITALS: BP 134/74; O2SAT 92
[2024-11-25 21:03] VITALS: TEMP 100
== END 2024-11-25 21:09 | disposition home or self-care (01) ==
LOC: EDBD 14:40 → M ED 14:40
DX: G89.18 Other acute postprocedural pain (principal); R10.9 Unspecified abdominal pain; K57.30 Diverticulosis of large intestine without perforation or abscess without bleeding; J98.11 Atelectasis; R16.0 Hepatomegaly, not elsewhere classified; I25.2 Old myocardial infarction; Z98.84 Bariatric surgery status; Z79.899 Other long term (current) drug therapy
CPT/HCPCS: 74177; 80047; 80076; 83605; 83690; 85025; 96374; 96375; 99284; J2470; Q9967

== ENCOUNTER → 2025-01-17 | Outpatient (CLI) | payer OTHER ==
[~2025-01-17] VITALS: Ht 165.1 cm; Wt 130.0 kg
[~2025-01-17] MED LIST changes: +ACETAMINOPHEN 325 MG TAB PO PRN; +AMIT10TA11 PO; -AMIT10TA7 PO; +COLA100C5 PO; +FAMOTIDINE 20 MG/2 ML VIAL IV ONE; +LR 1,000 ML IV SCH; +MULTIVITAMIN -ADULT INJECTION 10 ML, FOLIC ACID 1 MG, THIAMINE INJection 100 MG, MAGNES... IV ONE; +OMEP40CA5; +ONDANSETRON 4MG 2ML VIAL IV PRN
[2025-01-17 12:50] VITALS: BP 137/96; O2SAT 97
[2025-01-17] MEDS: FAMOTIDINE 20 MG/2 ML VIAL IV ONE (13:10)
[2025-01-17] MEDS: ONDANSETRON 4MG 2ML VIAL IV PRN (13:10)
[2025-01-17] MEDS: LR 1,000 ML IV SCH (13:10)
[2025-01-17] MEDS: MULTIVITAMIN -ADULT INJECTION 10 ML, FOLIC ACID 1 MG, THIAMINE INJection 100 MG, MAGNES... IV ONE (16:42)
[2025-01-17 17:45] VITALS: BP 150/82; O2SAT 100
== END ==
LOC: M INFU 12:19
PROVIDERS: ATTEND Physician Assistant Surgical
DX: E86.0 Dehydration (principal)
CPT/HCPCS: 96361; 96365; J1308; J1808; J2405; J3411; J3475

== ENCOUNTER 2025-01-29 15:29 | Emergency (ER) | payer OTHER ==
[~2025-01-29] VITALS: Ht 165.1 cm; Wt 124.6 kg
[~2025-01-29 15:29] MED LIST changes: -ACETAMINOPHEN 325 MG TAB PO PRN; -FAMOTIDINE 20 MG/2 ML VIAL IV ONE; -LR 1,000 ML IV SCH; -MULTIVITAMIN -ADULT INJECTION 10 ML, FOLIC ACID 1 MG, THIAMINE INJection 100 MG, MAGNES... IV ONE; -ONDANSETRON 4MG 2ML VIAL IV PRN
[2025-01-29] MEDS: KETOROLAC 60 MG/2 ML VIAL IM ONE (18:35)
[2025-01-29] MEDS ORDERED: TRAM50TA2 PO (20:21)
[2025-01-29 20:34] VITALS: BP 141/84; TEMP 97.7; O2SAT 97
== END 2025-01-29 20:38 | disposition home or self-care (01) ==
LOC: M ED 15:29
DX: M25.561 Pain in right knee (principal); K21.9 Gastro-esophageal reflux disease without esophagitis; F17.200 Nicotine dependence, unspecified, uncomplicated
CPT/HCPCS: 73564; 96372; 99283; J1885

== ENCOUNTER 2025-03-16 14:37 | Emergency (ER) | payer OTHER ==
[~2025-03-16] VITALS: Ht 165.1 cm; Wt 111.4 kg
[~2025-03-16 14:37] MED LIST changes: +HYDR12.510 PO; -HYDR12CA PO; -IBUP-1022 PO; +IBUP600T42 PO; +TRAM50TA2 PO
[2025-03-16 14:38] VITALS: BP 141/80; TEMP 97.3; O2SAT 96
== END 2025-03-16 15:55 | disposition left against medical advice (07) ==
LOC: M ED 14:37
DX: Z53.21 Procedure and treatment not carried out due to patient leaving prior to being seen by health care provider (principal)

== ENCOUNTER 2025-04-10 18:21 | Emergency (ER) | payer OTHER ==
[~2025-04-10] VITALS: Ht 165.1 cm; Wt 103.6 kg
[2025-04-10 20:52] VITALS: BP 122/71; TEMP 97.2; O2SAT 99
== END 2025-04-10 20:53 | disposition home or self-care (01) ==
LOC: M ED 18:21
DX: S09.90XA Unspecified injury of head, initial encounter (principal); S13.4XXA Sprain of ligaments of cervical spine, initial encounter; S43.402A Unspecified sprain of left shoulder joint, initial encounter; W01.198A Fall on same level from slipping, tripping and stumbling with subsequent striking against other object, initial encounter; F17.200 Nicotine dependence, unspecified, uncomplicated; K21.9 Gastro-esophageal reflux disease without esophagitis; G47.33 Obstructive sleep apnea (adult) (pediatric); Z79.899 Other long term (current) drug therapy; Y92.89 Other specified places as the place of occurrence of the external cause; Y93.89 Activity, other specified; Y99.0 Civilian activity done for income or pay

== ENCOUNTER 2025-06-04 00:16 | Emergency (ER) | payer OTHER ==
[~2025-06-04] VITALS: Ht 165.1 cm; Wt 96.9 kg
[2025-06-04 00:33] VITALS: TEMP 97; O2SAT 98
[2025-06-04 01:03] LABS: BASO # 0.0 10^3/uL (0.0-0.2); BASO % 0.4 % (0.0-1.0); EOS # 0.3 10^3/uL (0.0-0.5); EOS % 4.4 % (0.0-3.0); LYMPH # 2.7 10^3/uL (1.5-5.0); LYMPH % 37.0 % (24.0-44.0); MONO # 0.3 10^3/uL (0.0-0.8); MONO % 4.4 % (2.0-8.0); NEUTROPHILS # 3.9 10^3/uL (1.5-8.5); NEUTROPHILS % 53.5 % (36.0-66.0); PLATELET COUNT, AUTOMATED 178 10^3/uL (150-450)
[2025-06-04 01:25] LABS: CK-MB VALUE MASS 1.0 NG/ML (<3.6)
[2025-06-04 01:26] LABS: CALCIUM LEVEL 9.0 MG/DL (8.5-10.1); CARBON DIOXIDE LEVEL 28 MMOL/L (20-31); CHLORIDE LEVEL 107 MMOL/L (98-107); CPK CREATINE PHOSPHOKINASE 85 U/L (46-171); CREATININE FOR GFR 0.82 MG/DL (0.70-1.30); GLOMERULAR FILTRATION RATE > 90.0 (>60); MB/CK RELATIVE INDEX 1.17 (< OR =4); POTASSIUM SERUM 3.8 MMOL/L (3.5-5.1); SODIUM LEVEL 143 MMOL/L (136-145)
[2025-06-04 02:41] LABS: CK-MB VALUE MASS < 1.0 NG/ML (<3.6)
[2025-06-04 02:43] LABS: CPK CREATINE PHOSPHOKINASE 69 U/L (46-171)
[2025-06-04 03:47] LABS: FREE T4 0.96 NG/DL (0.89-1.76)
[2025-06-04] MEDS: NS (Normal Saline) 0.9% 1,000 ML IV ONE (03:55)
[2025-06-04 04:50] VITALS: BP 133/88
[2025-06-04] MEDS ORDERED: DEXA6TAB PO (05:08)
== END 2025-06-04 06:04 | disposition home or self-care (01) ==
LOC: EDBD 00:16 → M ED 00:16
DX: B34.8 Other viral infections of unspecified site (principal); R55 Syncope and collapse; K21.9 Gastro-esophageal reflux disease without esophagitis; Z98.84 Bariatric surgery status; Z79.899 Other long term (current) drug therapy
CPT/HCPCS: 70450; 70490; 71045; 80048; 82550; 82553; 83690; 84439; 84443; 84484; 85025; 87486; 87581; 87633; 87798; 93005; 93041; 96374; 99284; J1100

== ENCOUNTER → 2025-06-28 | Outpatient (CLI) | payer OTHER ==
[~2025-06-28] MED LIST changes: +DEXA6TAB PO
== END ==
LOC: M WUC 12:49
DX: R07.9 Chest pain, unspecified (principal)

== ENCOUNTER 2025-06-29 21:35 | Emergency (ER) | payer OTHER ==
[~2025-06-29] VITALS: Ht 165.1 cm; Wt 93.2 kg
[2025-06-29 22:29] LABS: BASO # 0.0 10^3/uL (0.0-0.2); BASO % 0.3 % (0.0-1.0); EOS # 0.4 10^3/uL (0.0-0.5); EOS % 6.6 % (0.0-3.0); LYMPH # 2.6 10^3/uL (1.5-5.0); LYMPH % 39.3 % (24.0-44.0); MONO # 0.3 10^3/uL (0.0-0.8); MONO % 4.2 % (2.0-8.0); NEUTROPHILS # 3.3 10^3/uL (1.5-8.5); NEUTROPHILS % 49.6 % (36.0-66.0); PLATELET COUNT, AUTOMATED 168 10^3/uL (150-450)
[2025-06-29 22:58] LABS: ALT/SGPT 30 U/L (7.0-40); AST/SGOT 23 U/L (<34); CALCIUM LEVEL 8.3 MG/DL (8.5-10.1); CARBON DIOXIDE LEVEL 28 MMOL/L (20-31); CHLORIDE LEVEL 109 MMOL/L (98-107); CREATININE FOR GFR 0.65 MG/DL (0.70-1.30); GLOMERULAR FILTRATION RATE > 90.0 (>60); POTASSIUM SERUM 3.7 MMOL/L (3.5-5.1); SODIUM LEVEL 144 MMOL/L (136-145)
[2025-06-30 00:06] LABS: KETONE, URINE AUTO RFX NEGATIVE (NEGATIVE); LEUKOCYTE ESTERASE UR AUTO RFX NEGATIVE (NEGATIVE); MUCUS, URINE RFX SMALL (NEGATIVE); NITRITE, URINE AUTO RFX NEGATIVE (NEGATIVE); RBC, URINE AUTO RFX TNTC /HPF (0-3); SQUAM EPITHELIAL CELL UR AURFX 3 /HPF (0-6); WBC, URINE AUTO RFX 8 /HPF (0-3)
[2025-06-30 01:41] VITALS: BP 134/84; TEMP 96.4; O2SAT 100
== END 2025-06-30 04:00 | disposition left against medical advice (07) ==
LOC: M ED 21:35
DX: Z53.21 Procedure and treatment not carried out due to patient leaving prior to being seen by health care provider (principal)